=== PATIENT | female | born 1930 ===

== ENCOUNTER 2017-02-05 11:21 | Emergency (ER) | payer MEDICARE ==
[2017-02-05 11:21] VITALS: BMI 25.5
[2017-02-05 11:34] VITALS: RESP 18
--- NOTE | 2017-02-05 12:12 | C.PDOC ---
History Of Present Illness 86 yr old female with PMHx of NIDDM, HTN, hyperlipidemia, TIA, cardiomyopathy and CHF, OA come in accompanied by family for evaluation of Left knee pain and swelling gradually developed for past week after " receive injection to knee by her PMD Dr. Hernández". As per pt, pain is localized over Left knee with severe pain especially today. Otherwise, pt and family denies known trauma or injury, fever, chills, CP, SOB, dyspnea, diaphoresis, cough, denies deformity to left knee, skin changes, denies new weakness, sensory or vascular deficits to left leg. Time Seen by Provider: 02/05/17 12:09 Chief Complaint (Nursing): Lower Extremity Problem/Injury History Per: Patient, Family History/Exam Limitations: no limitations Onset/Duration Of Symptoms: Days (1 week) Past Medical History Reviewed: Historical Data, Nursing Documentation, Vital Signs Vital Signs: Last Vital Signs Temp 98.1 F 02/05/17 14:36 Pulse 84 02/05/17 14:36 Resp 18 02/05/17 14:36 BP 115/67 02/05/17 14:36 Pulse Ox 98 02/05/17 14:36 - Medical History PMH: Anemia, Anxiety, Arthritis (BACK AND KNEES AND R SHOULDER), Asthma, Cardia Arrhythmia, CHF, COPD, Diabetes, HTN, Hypercholesterolemia, TIA Surgical History: Appendectomy, Coronary Stent, Endoscopy, Pacemaker (2015) - [facility] Procedures ASSISTANCE WITH RESPIRATORY VENTILATION, <24 HRS, CPAP (02/06/16) ESOPHAGOGASTRODUODENOSCOPY [EGD] W/CLOSED BIOPSY (12/30/14) LEFT HEART CARDIAC CATH (10/19/13) LT HEART ANGIOCARDIOGRAM (10/19/13) MEASURE OF CARDIAC SAMPL & PRESSURE, L HEART, PERC APPROACH (05/21/15) PACKED CELL TRANSFUSION (12/30/14) PLAIN RADIOGRAPHY OF MULT COR ART USING OTH CONTRAST (05/21/15) TRANSFUSE NONAUT RED BLOOD CELLS IN PERIPH VEIN, PERC (02/06/16) Family History: States: No Known Family Hx - Social History Hx Tobacco Use: No Hx Alcohol Use: No Hx Substance Use: No - Immunization History Hx Tetanus Toxoid Vaccination: No Hx Influenza Vaccination: Yes Hx Pneumococcal Vaccination: Yes Review Of Systems Except As Marked, All Systems Reviewed And Found Negative. Constitutional: Negative for: Fever, Chills Cardiovascular: Negative for: Chest Pain Respiratory: Negative for: Cough, Shortness of Breath Musculoskeletal: Positive for: Other ((+) Left knee pain and swelling ) Neurological: Negative for: Weakness, Numbness Physical Exam - Physical Exam Appears: Well, Non-toxic, No Acute Distress Skin: Normal Color, Warm, No Rash, No Ecchymosis Extremity: No Normal ROM ( decrease and discomfort left knee flexion/extension due to pain and swelling), Tenderness (diffuse tenderness over left knee with superior/lateral knee effusion. NO erythema, no flactulance, no palpable deformity.), No Pedal Edema, Calf Tenderness (mild, left ), Capillary Refill ( less than 2sec to Left foot), No Deformity Neurological/Psych: Oriented x3, Normal Speech, Normal Motor, Normal Sensation, Normal Reflexes ED Course And Treatment O2 Sat by Pulse Oximetry: 97 (RA ) Pulse Ox Interpretation: Normal - Other Rad Left knee xray X-Ray: Read By Radiologist Interpretation: Accession No. : [id number]. Patient Name / ID : DEB OLIVIER / [id number]. Exam Date : 02/05/2017 12:45:24 ( Approved ). Study Comment : Sex / Age : F / 86Y. Creator : Alcides Polk MD. Dictator : Alcides Polk MD. Costume Rental Clerk : [employer] : Alcides Polk MD. Approver2 : Report Date : 02/05/2017 13:04:32. My Comment : . PROCEDURE: Left Knee Radiographs. HISTORY: Pain. COMPARISON: Comparison made with prior radiographs of the left knee 07/17/2012. FINDINGS: BONES: No definitive radiographic evidence of displaced fracture nor dislocation osseous structures grossly intact. JOINTS: Mild degenerative osteoarthritis medial joint space narrowing and small marginal medial osteophyte formation. Tiny posterior superior patellar osteophyte present. . JOINT EFFUSION: Small to medium size suprapatellar joint effusion. OTHER FINDINGS: None. IMPRESSION: No definitive radiographic evidence of acute displaced fracture nor dislocation. Suspect that it extends persist or occult fracture suspected clinically recommend repeat radiographs 5-10 days as most fractures should become radiographically evident in this timeframe. Small -medium-sized suprapatellar joint effusion. Mild DJD. - CT Scan/US Dupple US LLE Other Rad Studies (CT/US): Read By Radiologist CT/US Interpretation: (-) DVT LLE Progress Note: On re-evaluation, pt appears comfortable. Case dsicussed with [id number] and knee immobilizer, NWB, analgesics with outpt f/u on 02/09/17 recommend. Pt was given option to return to ED on 02/08/17, will be in house. results review and discussed with pt and family, advised on course of ds and ortho recommendation. Pt has clinical findings c/w Left knee arthritis/DJD with knee effusion. Knee immobilizer placed to left knee. ref. to f/u with Ortho in 3 days for re-eavl and further tx. return to ED at any time if any worsening or new changes. Pt and family understand and agrees with discharges. Medical Decision Making Medical Decision Making: PLAN: * X-Ray - Left Knee * Venous Duplex * Percocet PO Disposition Counseled Patient/Family Regarding: Studies Performed, Diagnosis, Need For Followup - Disposition Referrals: Bridger Cullen III, MD [Staff Provider] - Disposition: HOME/ ROUTINE Disposition Time: 13:50 Condition: STABLE Additional Instructions: KNEE IMMOBILIZER STRICT WEIGHT BEARING TAKE PAIN MEDICATION NEED FOLLOW UP WITH ORTHOPEDIST ON Wednesday02/09/17 FOR FURTHER EVALUATION AND TREATMENT NEED RETURN TO ED AT ANY TIME IF ANY WORSENING OR NEW CHANGES. Prescriptions: oxyCODONE/Acetaminophen [Percocet 5/325 mg Tab] 1 tab PO BID PRN #7 tab PRN Reason: Pain Instructions: Swollen Knee Joint (ED), Knee Pain (ED) Print Language: BELIZEAN - Clinical Impression Clinical Impression: Knee effusion - PA / WEBSITE/BLOG EDITOR / Resident Statement MD/DO has reviewed & agrees with the documentation as recorded. - Scribe Statement The provider has reviewed the documentation as recorded by the Scribe Johana Oneill All medical record entries made by the Scribe were at my direction and personally dictated by me. I have reviewed the chart and agree that the record accurately reflects my personal performance of the history, physical exam, medical decision making, and the department course for this patient. I have also personally directed, reviewed, and agree with the discharge instructions and disposition.
[2017-02-05] MEDS ORDERED: Oxycodone/Acetaminophen 5/325 mg Tab PO STA (12:30)
[2017-02-05] MEDS ORDERED: Oxycodone/Acetaminophen 5/325 mg Tab ONE (12:33)
--- NOTE | 2017-02-05 13:06 | RAD ---
PROCEDURE: Left Knee Radiographs. HISTORY: Pain. COMPARISON: Comparison made with prior radiographs of the left knee 07/17/2012 FINDINGS: BONES: No definitive radiographic evidence of displaced fracture nor dislocation osseous structures grossly intact. JOINTS: Mild degenerative osteoarthritis medial joint space narrowing and small marginal medial osteophyte formation. Tiny posterior superior patellar osteophyte present. . JOINT EFFUSION: Small to medium size suprapatellar joint effusion OTHER FINDINGS: None. IMPRESSION: No definitive radiographic evidence of acute displaced fracture nor dislocation. Suspect that it extends persist or occult fracture suspected clinically recommend repeat radiographs 5-10 days as most fractures should become radiographically evident in this timeframe. Small -medium-sized suprapatellar joint effusion Mild DJD.
[2017-02-05 14:38] VITALS: BP 115/67; PULSE 84; TEMP 98.1
[2017-02-05 16:48] VITALS: O2SAT 97
--- NOTE | 2017-02-08 11:08 | VASCLAB ---
PROCEDURE: Left Lower Extremity Venous Duplex Exam. HISTORY: pain PRIORS: None. TECHNIQUE: Left common femoral, femoral, popliteal and posterior tibial, peroneal and great saphenous veins were evaluated. Flow was assessed with color Doppler, compressibility, assessment of phasic flow and augmentation response. Report prepared by LEXIS Mixon, RVT FINDINGS: LEFT: 1. Common Femoral Vein: 1.1. Compressibility - Fully compressible: Thrombus - None : Flow - Phasic: Augmentation -Normal: Reflux - None. 2. Femoral Vein: 2.1. Compressibility - Fully compressible: Thrombus - None: Flow - Phasic: Augmentation -Normal: Reflux - None. 3. Popliteal Vein: 3.1. Compressibility - Fully compressible: Thrombus - None: Flow - Phasic: Augmentation -Normal: Reflux - None. 4. Posterior Tibial Vein: 4.1. Compressibility - Fully compressible: Thrombus - None: Flow - Phasic: Augmentation -Normal: Reflux - None. 5. Peroneal Vein: 5.1. Compressibility - Fully compressible: Thrombus - None: Flow - Phasic: Augmentation -Normal: Reflux - None. 6. Great Saphenous Vein: 6.1. Compressibility - Fully compressible: Thrombus - None: Flow - Phasic: Augmentation - Normal: Reflux - Severe. OTHER FINDINGS: Severe valvular incompetence of the left greater saphenous vein. IMPRESSION: No evidence of deep or superficial vein thrombosis of the left lower extremity with excellent venous flow. Normal venous flow noted in the right common femoral vein.
== END 2017-02-05 14:45 | disposition home or self-care (01) ==
LOC: C.ER 11:21
DX: M25.462 Effusion, left knee (principal)

== ENCOUNTER 2017-06-15 00:07 | Inpatient (IN) | payer MEDICARE ==
[2017-06-15 00:07] VITALS: BMI 25.5
--- NOTE | 2017-06-15 00:34 | C.PDOC ---
History Of Present Illness Pt presents in acutre respiratory distress. Worsening since yesterday. Occasionally c/o chest discomfort. Answers in one word sentences. No f/c/n/v Time Seen by Provider: 06/15/17 00:32 Chief Complaint (Nursing): Chest Pain History Per: Patient History/Exam Limitations: no limitations Onset/Duration Of Symptoms: Hrs Current Symptoms Are (Timing): Worse Initiating Event: Other Quality: Dull Exacerbating Factor(s): Laying Flat, Coughing. denies: Exertion Current Respiratory Medications: See Home Med List Severity: Severe Pain Scale Rating Of: 8 Associated Symptoms: denies: Fever, Chills, Chest Pain Reports Recently: Seen In ED, Treated By A Physician, Hospitalized Recent travel outside of the [place]: No Additional History Per: Family Past Medical History Reviewed: Historical Data, Nursing Documentation, Vital Signs Vital Signs: Last Vital Signs Temp Pulse 93 H 06/15/17 02:09 Resp 24 06/15/17 02:09 BP 87/45 L 06/15/17 02:09 Pulse Ox 100 06/15/17 02:30 - Medical History PMH: Anemia, Anxiety, Arthritis (BACK AND KNEES AND R SHOULDER), Asthma, Cardia Arrhythmia, CHF, COPD, Diabetes, HTN, Hypercholesterolemia, TIA Surgical History: Appendectomy, Coronary Stent, Endoscopy, Pacemaker (2015) - [facility] Procedures ASSISTANCE WITH RESPIRATORY VENTILATION, <24 HRS, CPAP (02/06/16) ESOPHAGOGASTRODUODENOSCOPY [EGD] W/CLOSED BIOPSY (12/30/14) LEFT HEART CARDIAC CATH (10/19/13) LT HEART ANGIOCARDIOGRAM (10/19/13) MEASURE OF CARDIAC SAMPL & PRESSURE, L HEART, PERC APPROACH (05/21/15) PACKED CELL TRANSFUSION (12/30/14) PLAIN RADIOGRAPHY OF MULT COR ART USING OTH CONTRAST (05/21/15) TRANSFUSE NONAUT RED BLOOD CELLS IN PERIPH VEIN, PERC (02/06/16) Family History: States: Unknown Family Hx - Social History Hx Tobacco Use: No Hx Alcohol Use: No Hx Substance Use: No - Immunization History Hx Tetanus Toxoid Vaccination: No Hx Influenza Vaccination: Yes Hx Pneumococcal Vaccination: Yes Review Of Systems Review Of Systems: ROS cannot be obtained secondary to pt's inabilty to answer questions. Physical Exam - Physical Exam Appears: In Acute Distress Skin: Warm Head: Normacephalic Eye(s): bilateral: Normal Inspection Oral Mucosa: Moist Neck: Trachea Midline, Supple Chest: Symmetrical Cardiovascular: Rhythm Regular (tachy) Respiratory: Decreased Breath Sounds, Rales (thruout), Wheezing Gastrointestinal/Abdominal: Soft, No Distention Back: Normal Inspection Extremity: Normal ROM Extremity: Bilateral: Atraumatic, Normal Color And Temperature, Normal ROM Pulses: Left Dorsalis Pedis: Normal, Right Dorsalis Pedis: Normal Neurological/Psych: Oriented x3 Gait: Steady ED Course And Treatment - Laboratory Results Result Diagrams: 06/15/17 00:57 06/15/17 00:57 ECG: Interpreted By Me, Viewed By Me ECG Rhythm: Sinus Rhythm (113), L BBB, Nonspecific Changes O2 Sat by Pulse Oximetry: 100 Pulse Ox Interpretation: Normal - Radiology CXR: Interpreted by Me, Viewed By Me CXR Interpretation: Yes: Infiltrates, Cardiomegaly, Other (pacer left, chf, ? rll infiltrate) Critical Care Time - Critical Care Note Total Time (in mins): 30 Documented critical care: time excludes all time spent performing seperately billable procedures. Disposition Discussed With Dr.: Uriah Hernández Comment: accepted the pt on his service and took over the care at 2:33 AM Doctor Will See Patient In The: Hospital Counseled Patient/Family Regarding: Studies Performed, Diagnosis - Disposition Disposition: HOSPITALIZED Disposition Time: 00:40 Condition: GUARDED Forms: [facility] (Khmer) - POA Present On Arrival: None - Clinical Impression Clinical Impression: Congestive heart failure, Respiratory distress, Chest pain Decision To Admit - Pt Status Changed To: Hospital Disposition Of: Inpatient - Admit Certification Admit to Inpatient:: After my assessment, the patient will require hospitalization for at least two midnights. This is because of the severity of symptoms shown, intensity of services needed, and/or the medical risk in this patient being treated as an outpatient. - InPatient: Physician Admission Certification: I certify that this patient requires 2 or more midnights of care for the following reason:: After my assessment, the patient will require hospitalization for at least two midnights. This is because of the severity of symptoms shown, intensity of services needed, and/or the medical risk in this patient being treated as an outpatient. - . Bed Request Type: Telemetry Admitting Physician: Uriah Hernández Patient Diagnosis: Congestive heart failure, Respiratory distress, Chest pain
[2017-06-15 01:01] LABS: BASO # 0.1 K/uL (0.0-0.2); BASO % 0.7 % (0.0-2.0); EOS # 0.2 K/uL (0.0-0.7); EOS % 2.3 % (0.0-4.0); LYMPH % 13.1 % (20.0-40.0); MEAN CELL VOLUME 88.2 fL (81.0-99.0); MEAN CORPUSCULAR HEMOGLOBIN 28.5 pg (27.0-31.0); MEAN CORPUSCULAR HGB CONC 32.3 g/dL (33.0-37.0); MEAN PLATELET VOLUME 10.8 fL (7.2-11.7); MONO # 0.6 K/uL (0.0-0.8); MONO % 7.7 % (0.0-10.0); RED CELL DISTRIBUTION WIDTH 15.9 % (11.5-14.5); WHITE BLOOD COUNT 7.4 K/uL (4.8-10.8)
[2017-06-15] MEDS ORDERED: Albuterol-Ipratrop 3 mg / 0.5 (3 ml) UD ONE ×2 (01:08→01:20)
[2017-06-15 01:09] LABS: ABG ALLEN TEST POS; DRAW SITE RR
[2017-06-15] MEDS: Albuterol-Ipratrop 3 mg / 0.5 (3 ml) UD IH SCH (01:22)
[2017-06-15 01:56] LABS: BILIRUBIN,TOTAL 0.5 mg/dL (0.2-1.3); CALCIUM 8.4 mg/dl (8.6-10.4); POTASSIUM 4.4 mmol/L (3.6-5.2); TOTAL PROTEIN 7.4 g/dL (6.3-8.3)
[2017-06-15 02:07] LABS: TROPONIN I 0.059 ng/mL (0.00-0.120)
[2017-06-15] MEDS ORDERED: cefTRIAXone IV 1 gm in Dextros 50 ML IVPB ONE ×2 (02:27→04:00)
[2017-06-15] MEDS ORDERED: Azithromycin 500mg/250ML NS 500 MG/250 ML BAG IVPB SCH (02:30)
[2017-06-15] MEDS ORDERED: Azithromycin 500mg/250ML NS 500 MG/250 ML BAG IVPB STA (02:30)
[2017-06-15 03:53] LABS: RBC URINE 2 /hpf (0-3); URINE BILIRUBIN NEGATIVE (NEGATIVE); URINE BLOOD 1+ (NEGATIVE); URINE COLOR Straw (YELLOW); URINE GLUCOSE (UA) NORMAL (Normal); URINE KETONE NEGATIVE (NEGATIVE); URINE LEUKOCYTE ESTERASE 1+ Leu/uL (Negative); URINE PROTEIN NEGATIVE (NEGATIVE); URINE UROBILINOGEN NORMAL mg/dL (0.2-1.0); WBC URINE 3 /hpf (0-5)
[2017-06-15] MEDS: (Novolin R) Insulin Human Regular 100 units/ml vial SC SCH ×4 (07:53→21:58)
[2017-06-15] MEDS ORDERED: (Novolin R) Insulin Human Regular 100 units/ml vial ONE ×2 (07:53→17:24)
[2017-06-15 09:24] LABS: BASO % 0.6 % (0.0-2.0); EOS # 0.1 K/uL (0.0-0.7); EOS % 0.7 % (0.0-4.0); HEMATOCRIT 34.4 % (34.0-47.0); LYMPH # 0.8 K/uL (1.0-4.3); LYMPH % 10.4 % (20.0-40.0); MEAN CELL VOLUME 86.9 fL (81.0-99.0); MEAN CORPUSCULAR HEMOGLOBIN 28.4 pg (27.0-31.0); MEAN CORPUSCULAR HGB CONC 32.7 g/dL (33.0-37.0); MEAN PLATELET VOLUME 10.5 fL (7.2-11.7); MONO # 0.6 K/uL (0.0-0.8); MONO % 8.4 % (0.0-10.0); RED CELL DISTRIBUTION WIDTH 15.8 % (11.5-14.5); WHITE BLOOD COUNT 7.3 K/uL (4.8-10.8)
[2017-06-15 09:35] LABS: ALB/GLOB RATIO 1.4 (1.0-2.1); BILIRUBIN,TOTAL 0.7 mg/dL (0.2-1.3); CALCIUM 8.1 mg/dl (8.6-10.4); TOTAL PROTEIN 5.9 g/dL (6.3-8.3)
[2017-06-15 10:18] LABS: TROPONIN I 0.092 ng/mL (0.00-0.120)
[2017-06-15] MEDS: Aspirin 325 mg EC Tablets PO SCH (10:35)
[2017-06-15] MEDS: Sacubitril/Valsartan 24-26mg Tab PO SCH (10:35)
[2017-06-15] MEDS: Ranolazine 500 mg Extended Release Tablets PO SCH ×2 (10:35→18:50)
--- NOTE | 2017-06-15 10:36 | RAD ---
PROCEDURE: CHEST RADIOGRAPH, 1 VIEW HISTORY: Shortness of breath COMPARISON: 02/07/2016. FINDINGS: LUNGS: Again seen are low lung volumes. There is interval worsening of multifocal airspace disease with near complete opacification of the right lung. PLEURA: No pneumothorax. No change in bilateral pleural effusions. CARDIOVASCULAR: The heart remains enlarged. There is stable position of left-sided AICD. OSSEOUS STRUCTURES: No significant abnormalities. VISUALIZED UPPER ABDOMEN: Normal. OTHER FINDINGS: None. IMPRESSION: Interval worsening of multifocal airspace disease, worse in the right lung which may represent multifocal pneumonia or pulmonary edema. Follow-up is advised.
--- NOTE | 2017-06-15 13:27 | CP.PCM.HP ---
History of Present Illness - History of Present Illness History of Present Illness: COMPREHENSIVE HISTORY & PHYSICAL EXAM HPI FOR LAST FEW DAYS PT HAS SOB AND INCREASINGLY GETTING WORSE WITH SOB AT REST A/ E COUGH AND WHEEZING MILD EXPECTORATION IN ER PT HAD CHF/PNEUMONIA AND IMPROVED ON IV LASIX WITH BIPAP PAST HIST. CAD/2 STENTS RECENT /CARIOMYOPATHY EF 30% / T2DM/COPD/FE DEF ANEMIA / PERSONAL HIST: Smoking. N Alcohol. N Allergy N Travel_- . FAMILY HIST : ROS : Constitutional: Negative for weight change, Eyes: Negative for redness, swelling, itching, discharge, vision changes, blurry vision, double vision, glaucoma, cataracts, Ears: Negative for hearing loss, ringing, , tinnitus, vertigo Nose: Negative for rhinorrhea, stuffiness, sniffing, itching, postnasal drip, discoloration, nasal congestion and epistaxis. Throat: Negative for throat clearing, sore throat, hoarseness, difficulty swallowing and difficulty speaking. Respiratory: Negative for , pleuritic chest pain ,daytime somnolence, chronic cough, hemoptysis, snoring at night, Cardiovascular: Negative for chest pain, palpitations, , Edema of legs, leg cramps, angina, claudication, , irregular heartbeat, Neurology: Negative for irritability, muscle weakness, numbness and tingling, seizures, tremors, migraines, slurred speech, syncope, memory loss, mood changes , recurrent headaches Gastrointestinal: Negative for difficulty swallowing, diarrhea, constipation, black stools, rectal bleeding, nausea, flatulence, reflux, poor appetite, changes in bowel habits, abdominal pain Genitourinary: Negative for frequent urination, hematuria, discharge, incontinence, urinary retention, frequent UTI, Psychiatric: Negative for depression, anxiety/panic, suicidal tendencies, Musculoskeletal: Negative for swollen joints, back pain, , neck pain, morning stiffness of joints, . Skin: Negative for rash, ulcers, itching, dry skin and pigmented lesions. P/E: Constitutional: Appears stated age and in no apparent distress. Head: Normocephalic. Ears: External ear canals patent without inflammation. Tympanic membranes intact with normal light reflex and landmark. Eyes: Pupils are central, bilaterally equal, symmetrical and reacts to light with normal movements and no icterus or pallor. Nose: External nares are patent. Mucosa is pink Mouth-Throat: Good general appearance and condition. No post-pharyngeal/oropharyngeal erythema and tonsillar hypertrophy. Good dental hygiene. Neck-Lymphatic: Neck is supple with normal ROM, no thyromegaly, lymph nodes or masses. JVD is normal with no carotid bruit. Lungs: Clear to percussion and auscultation with bilateral normal air entry. Cardiovascular: S1 and S2 are normal with no murmurs, gallops and rub. GI Exam: No hepatomegaly. Abdomen is soft and non-tender. No Organomegaly , masses or hernias are evident and bowel sounds are normal and active. Neurology: Higher function and all cranial nerves intact, with no gross motor or sensory deficit. Superficial and deep reflexes are normal with downwards planters. No cerebellar deficit with normal gait. Musculoskeletal: No tender spots with normal curvature of the spine with no swelling or restricted ROM of the small and large joints. Extremities: Homans sign absent. Intact pulses with no pitting edema, calf tenderness or skin color changes. Skin: No rash, eruptions or abnormal skin pigmentation LAB/RADIOLOGY: ASSESMENT : ACUTE ON CH SYSTOLIC HF (HFrEF) MULTI LOBE PNEUMONIA COPD T2DM PLAN: SEE ORDERS Present on Admission - Present on Admission Any Indicators Present on Admission: No Past Patient History - Infectious Disease Hx of Infectious Diseases: None - Tetanus Immunizations Tetanus Immunization: Unknown - Past Medical History & Family History Past Medical History?: Yes - Past Social History Smoking Status: Never Smoked - CARDIAC Hx Cardia Arrhythmia: Yes Hx Congestive Heart Failure: Yes Hx Hypercholesterolemia: Yes Hx Hypertension: Yes Hx Pacemaker: Yes (2015) - PULMONARY Hx Asthma: Yes Hx Chronic Obstructive Pulmonary Disease (COPD): Yes - NEUROLOGICAL Hx Transient Ischemic Attacks (TIA): Yes - HEENT Hx HEENT Problems: No - RENAL Hx Chronic Kidney Disease: No - ENDOCRINE/METABOLIC Hx Endocrine Disorders: Yes Hx Diabetes Mellitus Type 2: Yes - HEMATOLOGICAL/ONCOLOGICAL Hx Anemia: Yes - MUSCULOSKELETAL/RHEUMATOLOGICAL Hx Falls: Yes - PSYCHIATRIC Hx Substance Use: No - SURGICAL HISTORY Hx Appendectomy: Yes Hx Coronary Stent: Yes - ANESTHESIA Hx Anesthesia: Yes Hx Anesthesia Reactions: No Hx Malignant Hyperthermia: No Meds Allergies/Adverse Reactions: Allergies Allergy/AdvReac Type Severity Reaction Status Date / Time clopidogrel Allergy Mild SWELLING Verified 06/15/17 00:30 Results - Vital Signs Recent Vital Signs: Last Vital Signs Temp 97.7 F 06/15/17 10:05 Pulse 83 06/15/17 12:40 Resp 16 06/15/17 12:26 BP 99/60 L 06/15/17 12:26 Pulse Ox 100 06/15/17 12:26 - Labs Result Diagrams: 06/15/17 09:20 06/15/17 09:20 Labs: Laboratory Results - last 24 hr 06/15/17 06/15/17 06/15/17 00:57 00:57 00:57 WBC 7.4 RBC 4.30 Hgb 12.3 Hct 38.0 MCV 88.2 D MCH 28.5 MCHC 32.3 L RDW 15.9 H Plt Count 103 L D MPV 10.8 Neut % (Auto) 76.2 H Lymph % (Auto) 13.1 L [place] % (Auto) 7.7 Eos % (Auto) 2.3 Baso % (Auto) 0.7 Neut # 5.6 Lymph # 1.0 [place] # 0.6 Eos # 0.2 Baso # 0.1 Differential Comment PT 11.5 INR 1.0 APTT 22 Puncture Site pCO2 pO2 HCO3 ABG pH ABG Total CO2 ABG O2 Saturation ABG Base Excess Candido Test ABG Potassium A-a O2 Difference Respiratory Index Glucose Lactate Liter Flow FiO2 Sodium 135 Potassium 4.4 Chloride 105 Carbon Dioxide 21 L Anion Gap 14 BUN 23 H Creatinine 1.4 H Est GFR ( Amer) 43 Est GFR (Non-Af Amer) 36 POC Glucose (mg/dL) Random Glucose 163 H Calcium 8.4 L Total Bilirubin 0.5 AST 32 ALT 34 Alkaline Phosphatase 75 Total Creatine Kinase CK-MB (Mass) Troponin I 0.0590 NT-Pro-B Natriuret Pep 92630 H Total Protein 7.4 Albumin 3.8 Globulin 3.7 Albumin/Globulin Ratio 1.0 Arterial Blood Potassium Urine Color Urine Clarity Urine pH Ur Specific [place] Urine Protein Urine Glucose (UA) Urine Ketones Urine Blood Urine Nitrate Urine Bilirubin Urine Urobilinogen Ur Leukocyte Esterase Urine WBC (Auto) Urine RBC (Auto) Ur Squamous Epith Cells 06/15/17 06/15/17 06/15/17 01:05 03:44 07:31 WBC RBC Hgb Hct MCV MCH MCHC RDW Plt Count MPV Neut % (Auto) Lymph % (Auto) [place] % (Auto) Eos % (Auto) Baso % (Auto) Neut # Lymph # [place] # Eos # Baso # Differential Comment PT INR APTT Puncture Site Rr pCO2 34 L pO2 57 L HCO3 21.9 ABG pH 7.39 ABG Total CO2 21.6 L ABG O2 Saturation 93.3 L ABG Base Excess -3.6 L [place] Test Pos ABG Potassium 4.5 A-a O2 Difference 100.0 Respiratory Index 1.8 Glucose 184 H Lactate 1.0 Liter Flow 2.0 FiO2 28.0 Sodium 139.0 Potassium Chloride 109.0 H Carbon Dioxide Anion Gap BUN Creatinine Est GFR ( Amer) Est GFR (Non-Af Amer) POC Glucose (mg/dL) 162 H Random Glucose Calcium Total Bilirubin AST ALT Alkaline Phosphatase Total Creatine Kinase CK-MB (Mass) Troponin I NT-Pro-B Natriuret Pep Total Protein Albumin Globulin Albumin/Globulin Ratio Arterial Blood Potassium 4.5 Urine Color Straw Urine Clarity Clear Urine pH 5.0 Ur Specific [place] 1.005 Urine Protein Negative Urine Glucose (UA) Normal Urine Ketones Negative Urine Blood 1+ H Urine Nitrate Negative Urine Bilirubin Negative Urine Urobilinogen Normal Ur Leukocyte Esterase 1+ H Urine WBC (Auto) 3 Urine RBC (Auto) 2 Ur Squamous Epith Cells < 1 06/15/17 06/15/17 06/15/17 09:20 09:20 12:00 WBC 7.3 RBC 3.96 Hgb 11.3 Hct 34.4 MCV 86.9 MCH 28.4 MCHC 32.7 L RDW 15.8 H Plt Count 91 L MPV 10.5 Neut % (Auto) 79.9 H Lymph % (Auto) 10.4 L [place] % (Auto) 8.4 Eos % (Auto) 0.7 Baso % (Auto) 0.6 Neut # 5.8 Lymph # 0.8 L [place] # 0.6 Eos # 0.1 Baso # 0.0 Differential Comment PT INR APTT Puncture Site pCO2 pO2 HCO3 ABG pH ABG Total CO2 ABG O2 Saturation ABG Base Excess [place] Test ABG Potassium A-a O2 Difference Respiratory Index Glucose Lactate Liter Flow FiO2 Sodium 136 Potassium 4.0 Chloride 103 Carbon Dioxide 24 Anion Gap 13 BUN 22 H Creatinine 1.3 H Est GFR ( Amer) 47 Est GFR (Non-Af Amer) 39 POC Glucose (mg/dL) 96 Random Glucose 108 H Calcium 8.1 L Total Bilirubin 0.7 AST 24 ALT 32 Alkaline Phosphatase 61 Total Creatine Kinase 76 CK-MB (Mass) 2.50 Troponin I 0.0920 NT-Pro-B Natriuret Pep Total Protein 5.9 L Albumin 3.4 L Globulin 2.5 Albumin/Globulin Ratio 1.4 Arterial Blood Potassium Urine Color Urine Clarity Urine pH Ur Specific [place] Urine Protein Urine Glucose (UA) Urine Ketones Urine Blood Urine Nitrate Urine Bilirubin Urine Urobilinogen Ur Leukocyte Esterase Urine WBC (Auto) Urine RBC (Auto) Ur Squamous Epith Cells
--- NOTE | 2017-06-15 16:15 | CP.PCM.CON ---
History of Present Illness - History of Present Illness History of Present Illness: INFECTIOUS DISEASE CONSULT; HPI; 86-year-old female with history of CAD/2 stents recent, hypertension, cardiomyopathy with ejection fraction of 30%, diabetes mellitus type 2, COPD, iron deficiency anemia, TIA, pacemaker 2015 who presented to [facility] with progressive increasing shortness of breath and cough and wheezing with mild expectoration. Patient was experiencing worsening shortness of breath especially on lying down and on exertion. Patient denies any fever or chills and admits to feeling weak. Chest x-ray on admission showed multifocal air space disease RT> LT side consistent with pneumonia versus pulmonary edema. Patient's proBNP was found to be 17,000. Patient was treated with Lasix and appropriately cultured with a dose of ceftriaxone,and zithromax .PATIENT PRESENTLY ON BIPAP AND MORE COMFORTABLE. Patient admits to some chest discomfort anteriorly. Infectious disease consultation requested by PMD for possible pneumonia/CHF. PMH: Anemia, Anxiety, Arthritis (BACK AND KNEES AND R SHOULDER), Asthma, Cardia Arrhythmia, CHF, COPD, Diabetes, HTN, Hypercholesterolemia, TIA Surgical History: Appendectomy, Coronary Stent, Endoscopy, Pacemaker (2015) - [employer] Procedures ASSISTANCE WITH RESPIRATORY VENTILATION, <24 HRS, CPAP (02/06/16) ESOPHAGOGASTRODUODENOSCOPY [EGD] W/CLOSED BIOPSY (12/30/14) LEFT HEART CARDIAC CATH (10/19/13) LT HEART ANGIOCARDIOGRAM (10/19/13) MEASURE OF CARDIAC SAMPL & PRESSURE, L HEART, PERC APPROACH (05/21/15) PACKED CELL TRANSFUSION (12/30/14) PLAIN RADIOGRAPHY OF MULT COR ART USING OTH CONTRAST (05/21/15) TRANSFUSE NONAUT RED BLOOD CELLS IN PERIPH VEIN, PERC (02/06/16) Family History: States: Unknown Family Hx - Social History Hx Tobacco Use: No Hx Alcohol Use: No Hx Substance Use: No - Immunization History Hx Tetanus Toxoid Vaccination: No Hx Influenza Vaccination: Yes Hx Pneumococcal Vaccination: Yes ALLERGY; PLAVIX. Review of Systems - Review of Systems Systems not reviewed;Unavailable: Respiratory Distress Past Patient History - Infectious Disease Hx of Infectious Diseases: None - Tetanus Immunizations Tetanus Immunization: Unknown - Past Medical History & Family History Past Medical History?: Yes - Past Social History Smoking Status: Never Smoked - CARDIAC Hx Cardia Arrhythmia: Yes Hx Congestive Heart Failure: Yes Hx Hypercholesterolemia: Yes Hx Hypertension: Yes Hx Pacemaker: Yes (2016) - PULMONARY Hx Asthma: Yes Hx Chronic Obstructive Pulmonary Disease (COPD): Yes - NEUROLOGICAL Hx Transient Ischemic Attacks (TIA): Yes - HEENT Hx HEENT Problems: No - RENAL Hx Chronic Kidney Disease: No - ENDOCRINE/METABOLIC Hx Endocrine Disorders: Yes Hx Diabetes Mellitus Type 2: Yes - HEMATOLOGICAL/ONCOLOGICAL Hx Anemia: Yes - MUSCULOSKELETAL/RHEUMATOLOGICAL Hx Falls: Yes - PSYCHIATRIC Hx Substance Use: No - SURGICAL HISTORY Hx Appendectomy: Yes Hx Coronary Stent: Yes - ANESTHESIA Hx Anesthesia: Yes Hx Anesthesia Reactions: No Hx Malignant Hyperthermia: No Meds Allergies/Adverse Reactions: Allergies Allergy/AdvReac Type Severity Reaction Status Date / Time clopidogrel Allergy Mild SWELLING Verified 06/15/17 00:30 - Medications Medications: Current Medications Aspirin (Ecotrin) 325 mg PO DAILY [facility] Last Admin: 06/15/17 10:35 Dose: 325 mg Furosemide (Lasix) 40 mg IVP DAILY [facility] Last Admin: 06/15/17 10:30 Dose: Not Given Heparin Sodium (Porcine) (Heparin) 5,000 units SC Q12 [facility] Last Admin: 06/15/17 13:53 Dose: 5,000 units Ceftriaxone Sodium (Rocephin Iv 1 Gm Duplex) 50 mls @ 100 mls/hr IVPB Q24H [facility] Insulin Glargine (Lantus) 20 unit SC HS [facility] Insulin Human Regular (Novolin R) 0 unit SC ACHS [facility] PRN Reason: Protocol Last Admin: 06/15/17 12:01 Dose: Not Given Metoprolol Tartrate (Lopressor) 25 mg PO BID [facility] Last Admin: 06/15/17 10:28 Dose: Not Given Pneumococcal Polyvalent Vaccine (Pneumovax 23 Vaccine) 0.5 ml IM .ONCE ONE Stop: 06/18/17 10:01 Ranolazine (Ranexa) 500 mg PO BID [facility] Last Admin: 06/15/17 10:35 Dose: 500 mg Repaglinide (Prandin) 2 mg PO DAILY [facility] Last Admin: 06/15/17 10:35 Dose: 2 mg Rosuvastatin Calcium (Crestor) 20 mg PO HS [facility] Sacubitril/Valsartan (Entresto 24 Mg-26 Mg) 1 tab PO DAILY [facility] Last Admin: 06/15/17 10:35 Dose: Not Given Ticagrelor (Brilinta) 90 mg PO QOD6 JONNA Physical Exam - Constitutional Appears: No Acute Distress - Head Exam Head Exam: NORMAL INSPECTION - Eye Exam Eye Exam: EOMI, PERRL - ENT Exam ENT Exam: Mucous Membranes Moist - Neck Exam Neck exam: Positive for: Normal Inspection - Respiratory Exam Respiratory Exam: Rales, Wheezes - Cardiovascular Exam Cardiovascular Exam: REGULAR RHYTHM, +S1, +S2 - GI/Abdominal Exam GI & Abdominal Exam: Normal Bowel Sounds, Soft. absent: Tenderness - Extremities Exam Extremities exam: Positive for: normal capillary refill, pedal pulses present. Negative for: calf tenderness, pedal edema - Neurological Exam Neurological exam: Alert, CN II-XII Intact, Oriented x3, Reflexes Normal - Psychiatric Exam Psychiatric exam: Normal Mood - Skin Skin Exam: Normal Color, Warm Results - Vital Signs Recent Vital Signs: Last Vital Signs Temp 97.5 F L 06/15/17 15:15 Pulse 93 H 06/15/17 15:15 Resp 17 06/15/17 15:15 BP 101/39 L 06/15/17 15:15 Pulse Ox 99 06/15/17 15:15 - Labs Result Diagrams: 06/15/17 09:20 06/15/17 09:20 Labs: Laboratory Results - last 24 hr 06/15/17 06/15/17 06/15/17 00:57 00:57 00:57 WBC 7.4 RBC 4.30 Hgb 12.3 Hct 38.0 MCV 88.2 D MCH 28.5 MCHC 32.3 L RDW 15.9 H Plt Count 103 L D MPV 10.8 Neut % (Auto) 76.2 H Lymph % (Auto) 13.1 L [place] % (Auto) 7.7 Eos % (Auto) 2.3 Baso % (Auto) 0.7 Neut # 5.6 Lymph # 1.0 [place] # 0.6 Eos # 0.2 Baso # 0.1 Differential Comment PT 11.5 INR 1.0 APTT 22 Puncture Site pCO2 pO2 HCO3 ABG pH ABG Total CO2 ABG O2 Saturation ABG Base Excess [place] Test ABG Potassium A-a O2 Difference Respiratory Index Glucose Lactate Liter Flow FiO2 Sodium 135 Potassium 4.4 Chloride 105 Carbon Dioxide 21 L Anion Gap 14 BUN 23 H Creatinine 1.4 H Est GFR ( Amer) 43 Est GFR (Non-Af Amer) 36 POC Glucose (mg/dL) Random Glucose 163 H Calcium 8.4 L Total Bilirubin 0.5 AST 32 ALT 34 Alkaline Phosphatase 75 Total Creatine Kinase CK-MB (Mass) Troponin I 0.0590 NT-Pro-B Natriuret Pep 30979 H Total Protein 7.4 Albumin 3.8 Globulin 3.7 Albumin/Globulin Ratio 1.0 Arterial Blood Potassium Urine Color Urine Clarity Urine pH Ur Specific [place] Urine Protein Urine Glucose (UA) Urine Ketones Urine Blood Urine Nitrate Urine Bilirubin Urine Urobilinogen Ur Leukocyte Esterase Urine WBC (Auto) Urine RBC (Auto) Ur Squamous Epith Cells 06/15/17 06/15/17 06/15/17 01:05 03:44 07:31 WBC RBC Hgb Hct MCV MCH MCHC RDW Plt Count MPV Neut % (Auto) Lymph % (Auto) [place] % (Auto) Eos % (Auto) Baso % (Auto) Neut # Lymph # [place] # Eos # Baso # Differential Comment PT INR APTT Puncture Site Rr pCO2 34 L pO2 57 L HCO3 21.9 ABG pH 7.39 ABG Total CO2 21.6 L ABG O2 Saturation 93.3 L ABG Base Excess -3.6 L [place] Test Pos ABG Potassium 4.5 A-a O2 Difference 100.0 Respiratory Index 1.8 Glucose 184 H Lactate 1.0 Liter Flow 2.0 FiO2 28.0 Sodium 139.0 Potassium Chloride 109.0 H Carbon Dioxide Anion Gap BUN Creatinine Est GFR ( Amer) Est GFR (Non-Af Amer) POC Glucose (mg/dL) 162 H Random Glucose Calcium Total Bilirubin AST ALT Alkaline Phosphatase Total Creatine Kinase CK-MB (Mass) Troponin I NT-Pro-B Natriuret Pep Total Protein Albumin Globulin Albumin/Globulin Ratio Arterial Blood Potassium 4.5 Urine Color Straw Urine Clarity Clear Urine pH 5.0 Ur Specific [place] 1.005 Urine Protein Negative Urine Glucose (UA) Normal Urine Ketones Negative Urine Blood 1+ H Urine Nitrate Negative Urine Bilirubin Negative Urine Urobilinogen Normal Ur Leukocyte Esterase 1+ H Urine WBC (Auto) 3 Urine RBC (Auto) 2 Ur Squamous Epith Cells < 1 06/15/17 06/15/17 06/15/17 09:20 09:20 12:00 WBC 7.3 RBC 3.96 Hgb 11.3 Hct 34.4 MCV 86.9 MCH 28.4 MCHC 32.7 L RDW 15.8 H Plt Count 91 L MPV 10.5 Neut % (Auto) 79.9 H Lymph % (Auto) 10.4 L [place] % (Auto) 8.4 Eos % (Auto) 0.7 Baso % (Auto) 0.6 Neut # 5.8 Lymph # 0.8 L [place] # 0.6 Eos # 0.1 Baso # 0.0 Differential Comment PT INR APTT Puncture Site pCO2 pO2 HCO3 ABG pH ABG Total CO2 ABG O2 Saturation ABG Base Excess [place] Test ABG Potassium A-a O2 Difference Respiratory Index Glucose Lactate Liter Flow FiO2 Sodium 136 Potassium 4.0 Chloride 103 Carbon Dioxide 24 Anion Gap 13 BUN 22 H Creatinine 1.3 H Est GFR ( Amer) 47 Est GFR (Non-Af Amer) 39 POC Glucose (mg/dL) 96 Random Glucose 108 H Calcium 8.1 L Total Bilirubin 0.7 AST 24 ALT 32 Alkaline Phosphatase 61 Total Creatine Kinase 76 CK-MB (Mass) 2.50 Troponin I 0.0920 NT-Pro-B Natriuret Pep Total Protein 5.9 L Albumin 3.4 L Globulin 2.5 Albumin/Globulin Ratio 1.4 Arterial Blood Potassium Urine Color Urine Clarity Urine pH Ur Specific [place] Urine Protein Urine Glucose (UA) Urine Ketones Urine Blood Urine Nitrate Urine Bilirubin Urine Urobilinogen Ur Leukocyte Esterase Urine WBC (Auto) Urine RBC (Auto) Ur Squamous Epith Cells - Imaging and Cardiology Chest x-ray Status: Report reviewed by me (see report.) Assessment & Plan (1) Respiratory distress Assessment and Plan: PATIENT PRESENTLY ON BIPAP. CONTINUE PULMONARY TOILET/ DIURESIS. Status: Acute (2) Pneumonia Assessment and Plan: pancultures ESR,CRP. ATYPICAL TITERS. MRSA SCREEN. SPUTUM gRAM STAIN AND CULTURE. CONTINUE iv CEFTRIAXONE 1 G ONCE A DAY DAILY.06/15/17 CONTINUE iv ZITHROMAX 500 MG ONCE A DAY DAILY.06/15/17. PULMONARY TOILET. DIURESESIS PER PMD. FOLLOW-UP CHEST X-RAY Status: Acute (3) CHF exacerbation Status: Acute (4) Cardiomyopathy Assessment and Plan: 2-d ECHO IN PROGRESS. Status: Acute (5) CAD (coronary artery disease) Status: Acute
[2017-06-15 19:37] LABS: TROPONIN I 0.078 ng/mL (0.00-0.120)
[2017-06-15] MEDS ORDERED: Albumin Human 5% (12.5 gm/250 ml) IV ONE (20:45)
--- NOTE | 2017-06-15 21:16 | CP.PCM.CON ---
History of Present Illness - History of Present Illness History of Present Illness: 86yo F. PMHx CAD (2 stents), systolic HF (EF-25%, 07/2015), DM type 2, COPD, iron deficiency anemia. p/w SOB, placed on BIPAP in ED, with improvement. Review of Systems - Review of Systems All systems: reviewed and no additional remarkable complaints except (feels hot) Past Patient History - Infectious Disease Hx of Infectious Diseases: None - Tetanus Immunizations Tetanus Immunization: Unknown - Past Medical History & Family History Past Medical History?: Yes - Past Social History Smoking Status: Never Smoked - CARDIAC Hx Cardia Arrhythmia: Yes Hx Congestive Heart Failure: Yes Hx Hypercholesterolemia: Yes Hx Hypertension: Yes Hx Pacemaker: Yes (2015) - PULMONARY Hx Asthma: Yes Hx Chronic Obstructive Pulmonary Disease (COPD): Yes - NEUROLOGICAL Hx Transient Ischemic Attacks (TIA): Yes - HEENT Hx HEENT Problems: No - RENAL Hx Chronic Kidney Disease: No - ENDOCRINE/METABOLIC Hx Endocrine Disorders: Yes Hx Diabetes Mellitus Type 2: Yes - HEMATOLOGICAL/ONCOLOGICAL Hx Anemia: Yes - MUSCULOSKELETAL/RHEUMATOLOGICAL Hx Falls: Yes - PSYCHIATRIC Hx Substance Use: No - SURGICAL HISTORY Hx Appendectomy: Yes Hx Coronary Stent: Yes - ANESTHESIA Hx Anesthesia: Yes Hx Anesthesia Reactions: No Hx Malignant Hyperthermia: No Meds Allergies/Adverse Reactions: Allergies Allergy/AdvReac Type Severity Reaction Status Date / Time clopidogrel Allergy Mild SWELLING Verified 06/15/17 00:30 - Medications Medications: Current Medications Aspirin (Ecotrin) 325 mg PO DAILY [facility] Last Admin: 06/15/17 10:35 Dose: 325 mg Furosemide (Lasix) 40 mg IVP Q12 [facility] Heparin Sodium (Porcine) (Heparin) 5,000 units SC Q12 [facility] Last Admin: 06/15/17 13:53 Dose: 5,000 units Azithromycin 500 mg/ Sodium (Chloride) 250 mls @ 250 mls/hr IVPB DAILY [facility] Ceftriaxone Sodium 1 gm/ (Sodium Chloride) 100 mls @ 100 mls/hr IVPB DAILY [facility] Last Admin: 06/15/17 19:54 Dose: 100 mls/hr Insulin Glargine (Lantus) 20 unit SC HS [facility] Insulin Human Regular (Novolin R) 0 unit SC ACHS [facility] PRN Reason: Protocol Last Admin: 06/15/17 17:23 Dose: 3 unit Metoprolol Tartrate (Lopressor) 25 mg PO BID [facility] Last Admin: 06/15/17 18:38 Dose: Not Given Pneumococcal Polyvalent Vaccine (Pneumovax 23 Vaccine) 0.5 ml IM .ONCE ONE Stop: 06/18/17 10:01 Ranolazine (Ranexa) 500 mg PO BID [facility] Last Admin: 06/15/17 18:50 Dose: 500 mg Repaglinide (Prandin) 2 mg PO DAILY [facility] Last Admin: 06/15/17 10:35 Dose: 2 mg Rosuvastatin Calcium (Crestor) 20 mg PO [facility] Sacubitril/Valsartan (Entresto 24 Mg-26 Mg) 1 tab PO DAILY [facility] Last Admin: 06/15/17 10:35 Dose: Not Given Ticagrelor (Brilinta) 90 mg PO QOD6 [facility] Last Admin: 06/15/17 18:50 Dose: 90 mg Physical Exam - Head Exam Head Exam: ATRAUMATIC, NORMAL INSPECTION, NORMOCEPHALIC - Eye Exam Eye Exam: EOMI, Normal appearance, PERRL Pupil Exam: NORMAL ACCOMODATION, PERRL - ENT Exam ENT Exam: Mucous Membranes Dry, Normal Exam - Respiratory Exam Respiratory Exam: Rales, NORMAL BREATHING PATTERN - Cardiovascular Exam Cardiovascular Exam: REGULAR RHYTHM - GI/Abdominal Exam GI & Abdominal Exam: Normal Bowel Sounds, Soft. absent: Tenderness - Neurological Exam Neurological exam: Alert, CN II-XII Intact, Oriented x3, Reflexes Normal - Psychiatric Exam Psychiatric exam: Normal Affect, Normal Mood Results - Vital Signs Recent Vital Signs: Last Vital Signs Temp 97.5 F L 06/15/17 18:50 Pulse 97 H 06/15/17 18:25 Resp 16 06/15/17 18:25 BP 109/46 L 06/15/17 18:38 Pulse Ox 100 06/15/17 18:25 - Labs Result Diagrams: 06/15/17 09:20 06/15/17 09:20 Labs: Laboratory Results - last 24 hr 06/15/17 06/15/17 06/15/17 00:57 00:57 00:57 WBC 7.4 RBC 4.30 Hgb 12.3 Hct 38.0 MCV 88.2 D MCH 28.5 MCHC 32.3 L RDW 15.9 H Plt Count 103 L D MPV 10.8 Neut % (Auto) 76.2 H Lymph % (Auto) 13.1 L [place] % (Auto) 7.7 Eos % (Auto) 2.3 Baso % (Auto) 0.7 Neut # 5.6 Lymph # 1.0 [place] # 0.6 Eos # 0.2 Baso # 0.1 Differential Comment ESR PT 11.5 INR 1.0 APTT 22 Puncture Site pCO2 pO2 HCO3 ABG pH ABG Total CO2 ABG O2 Saturation ABG Base Excess [place] Test ABG Potassium A-a O2 Difference Respiratory Index Glucose Lactate Liter Flow FiO2 Sodium 135 Potassium 4.4 Chloride 105 Carbon Dioxide 21 L Anion Gap 14 BUN 23 H Creatinine 1.4 H Est GFR ( Amer) 43 Est GFR (Non-Af Amer) 36 POC Glucose (mg/dL) Random Glucose 163 H Calcium 8.4 L Total Bilirubin 0.5 AST 32 ALT 34 Alkaline Phosphatase 75 Total Creatine Kinase CK-MB (Mass) Troponin I 0.0590 NT-Pro-B Natriuret Pep 45167 H Total Protein 7.4 Albumin 3.8 Globulin 3.7 Albumin/Globulin Ratio 1.0 Arterial Blood Potassium Urine Color Urine Clarity Urine pH Ur Specific [place] Urine Protein Urine Glucose (UA) Urine Ketones Urine Blood Urine Nitrate Urine Bilirubin Urine Urobilinogen Ur Leukocyte Esterase Urine WBC (Auto) Urine RBC (Auto) Ur Squamous Epith Cells Mycoplasma pneumon IgM 06/15/17 06/15/17 06/15/17 01:05 03:44 07:31 WBC RBC Hgb Hct MCV MCH MCHC RDW Plt Count MPV Neut % (Auto) Lymph % (Auto) [place] % (Auto) Eos % (Auto) Baso % (Auto) Neut # Lymph # [place] # Eos # Baso # Differential Comment ESR PT INR APTT Puncture Site Rr pCO2 34 L pO2 57 L HCO3 21.9 ABG pH 7.39 ABG Total CO2 21.6 L ABG O2 Saturation 93.3 L ABG Base Excess -3.6 L [place] Test Pos ABG Potassium 4.5 A-a O2 Difference 100.0 Respiratory Index 1.8 Glucose 184 H Lactate 1.0 Liter Flow 2.0 FiO2 28.0 Sodium 139.0 Potassium Chloride 109.0 H Carbon Dioxide Anion Gap BUN Creatinine Est GFR ( Amer) Est GFR (Non-Af Amer) POC Glucose (mg/dL) 162 H Random Glucose Calcium Total Bilirubin AST ALT Alkaline Phosphatase Total Creatine Kinase CK-MB (Mass) Troponin I NT-Pro-B Natriuret Pep Total Protein Albumin Globulin Albumin/Globulin Ratio Arterial Blood Potassium 4.5 Urine Color Straw Urine Clarity Clear Urine pH 5.0 Ur Specific [place] 1.005 Urine Protein Negative Urine Glucose (UA) Normal Urine Ketones Negative Urine Blood 1+ H Urine Nitrate Negative Urine Bilirubin Negative Urine Urobilinogen Normal Ur Leukocyte Esterase 1+ H Urine WBC (Auto) 3 Urine RBC (Auto) 2 Ur Squamous Epith Cells < 1 Mycoplasma pneumon IgM 06/15/17 06/15/17 06/15/17 09:20 09:20 12:00 WBC 7.3 RBC 3.96 Hgb 11.3 Hct 34.4 MCV 86.9 MCH 28.4 MCHC 32.7 L RDW 15.8 H Plt Count 91 L MPV 10.5 Neut % (Auto) 79.9 H Lymph % (Auto) 10.4 L [place] % (Auto) 8.4 Eos % (Auto) 0.7 Baso % (Auto) 0.6 Neut # 5.8 Lymph # 0.8 L [place] # 0.6 Eos # 0.1 Baso # 0.0 Differential Comment ESR PT INR APTT Puncture Site pCO2 pO2 HCO3 ABG pH ABG Total CO2 ABG O2 Saturation ABG Base Excess [place] Test ABG Potassium A-a O2 Difference Respiratory Index Glucose Lactate Liter Flow FiO2 Sodium 136 Potassium 4.0 Chloride 103 Carbon Dioxide 24 Anion Gap 13 BUN 22 H Creatinine 1.3 H Est GFR ( Amer) 47 Est GFR (Non-Af Amer) 39 POC Glucose (mg/dL) 96 Random Glucose 108 H Calcium 8.1 L Total Bilirubin 0.7 AST 24 ALT 32 Alkaline Phosphatase 61 Total Creatine Kinase 76 CK-MB (Mass) 2.50 Troponin I 0.0920 NT-Pro-B Natriuret Pep Total Protein 5.9 L Albumin 3.4 L Globulin 2.5 Albumin/Globulin Ratio 1.4 Arterial Blood Potassium Urine Color Urine Clarity Urine pH Ur Specific [place] Urine Protein Urine Glucose (UA) Urine Ketones Urine Blood Urine Nitrate Urine Bilirubin Urine Urobilinogen Ur Leukocyte Esterase Urine WBC (Auto) Urine RBC (Auto) Ur Squamous Epith Cells Mycoplasma pneumon IgM 06/15/17 06/15/17 06/15/17 16:57 18:19 18:19 WBC RBC Hgb Hct MCV MCH MCHC RDW Plt Count MPV Neut % (Auto) Lymph % (Auto) [place] % (Auto) Eos % (Auto) Baso % (Auto) Neut # Lymph # [place] # Eos # Baso # Differential Comment ESR PT INR APTT Puncture Site pCO2 pO2 HCO3 ABG pH ABG Total CO2 ABG O2 Saturation ABG Base Excess [place] Test ABG Potassium A-a O2 Difference Respiratory Index Glucose Lactate Liter Flow FiO2 Sodium Potassium Chloride Carbon Dioxide Anion Gap BUN Creatinine Est GFR ( Amer) Est GFR (Non-Af Amer) POC Glucose (mg/dL) 200 H Random Glucose Calcium Total Bilirubin AST ALT Alkaline Phosphatase Total Creatine Kinase 55 CK-MB (Mass) 1.71 Troponin I 0.0780 NT-Pro-B Natriuret Pep Total Protein Albumin Globulin Albumin/Globulin Ratio Arterial Blood Potassium Urine Color Urine Clarity Urine pH Ur Specific [place] Urine Protein Urine Glucose (UA) Urine Ketones Urine Blood Urine Nitrate Urine Bilirubin Urine Urobilinogen Ur Leukocyte Esterase Urine WBC (Auto) Urine RBC (Auto) Ur Squamous Epith Cells Mycoplasma pneumon IgM Positive H 06/15/17 18:19 WBC RBC Hgb Hct MCV MCH MCHC RDW Plt Count MPV Neut % (Auto) Lymph % (Auto) [place] % (Auto) Eos % (Auto) Baso % (Auto) Neut # Lymph # [place] # Eos # Baso # Differential Comment ESR 40 H PT INR APTT Puncture Site pCO2 pO2 HCO3 ABG pH ABG Total CO2 ABG O2 Saturation ABG Base Excess [place] Test ABG Potassium A-a O2 Difference Respiratory Index Glucose Lactate Liter Flow FiO2 Sodium Potassium Chloride Carbon Dioxide Anion Gap BUN Creatinine Est GFR ( Amer) Est GFR (Non-Af Amer) POC Glucose (mg/dL) Random Glucose Calcium Total Bilirubin AST ALT Alkaline Phosphatase Total Creatine Kinase CK-MB (Mass) Troponin I NT-Pro-B Natriuret Pep Total Protein Albumin Globulin Albumin/Globulin Ratio Arterial Blood Potassium Urine Color Urine Clarity Urine pH Ur Specific [place] Urine Protein Urine Glucose (UA) Urine Ketones Urine Blood Urine Nitrate Urine Bilirubin Urine Urobilinogen Ur Leukocyte Esterase Urine WBC (Auto) Urine RBC (Auto) Ur Squamous Epith Cells Mycoplasma pneumon IgM Assessment & Plan (1) Congestive heart failure Assessment and Plan: 86yo F. PMHx CAD (2 stents), systolic HF (EF-25%), DM type 2, COPD, iron deficiency anemia. p/w acute on chronic systolic CHF exacerbation. Neuro: alert and oriented x 3. Pulm: acute hypoxic respiratory failure secondary to pulmonary edema from acute on chronic CHF exacerbation, started on BIPAP, adding diuretics. CV: relatively hypotensive for a normally hypertensive patient, but asymptomatic. Hem: chronic anemia, continue iron supplementation. Renal: no acute issues. Starting albumin drip with diuretics to improve blood pressure and pulmonary edema. Endo: type 2 DM, short acting insulin sliding scale for coverage GI: heart healthy diet ID: empiric treatemnt for possible underlying community acquired pneumonia, suspicion low. continue ceftriaxone and azithromycin. DVT proph - lovenox GI proph - not currently indicated garrett for strict I/O's during acute illness Code status - full code Patient is clinically stable for continued management on telemetry floors, if clinical status changes, please reconsult ICU. Critical Care Time spent 35 minutes The documented time is cumulative and includes review of patient data/exams/labs /chart review and examination of the patient on rounds and throughout the day; time is exclusive of any procedures or teaching time. Status: Acute
[2017-06-15] MEDS: (Lantus) Insulin Glargine, Recombinant SC SCH (23:07)
[2017-06-16] MEDS ORDERED: cefTRIAXone IV 1 gm in Dextros 50 ML IVPB SCH (03:00)
[2017-06-16 07:27] LABS: BASO % 0.5 % (0.0-2.0); EOS # 0.1 K/uL (0.0-0.7); LYMPH # 0.7 K/uL (1.0-4.3); LYMPH % 13.6 % (20.0-40.0); MEAN CELL VOLUME 86.6 fL (81.0-99.0); MEAN CORPUSCULAR HEMOGLOBIN 28.4 pg (27.0-31.0); MEAN CORPUSCULAR HGB CONC 32.8 g/dL (33.0-37.0); MEAN PLATELET VOLUME 11.2 fL (7.2-11.7); MONO # 0.5 K/uL (0.0-0.8); MONO % 10.6 % (0.0-10.0); NRBC % 0.1 % (0.0-2.0); RED CELL DISTRIBUTION WIDTH 15.7 % (11.5-14.5); WHITE BLOOD COUNT 4.8 K/uL (4.8-10.8)
[2017-06-16] MEDS: (Novolin R) Insulin Human Regular 100 units/ml vial SC SCH ×4 (07:48→21:47)
[2017-06-16 07:51] LABS: ALB/GLOB RATIO 1.3 (1.0-2.1); BILIRUBIN,TOTAL 0.7 mg/dL (0.2-1.3); CALCIUM 8.2 mg/dl (8.6-10.4); POTASSIUM 3.5 mmol/L (3.6-5.2); TOTAL PROTEIN 5.9 g/dL (6.3-8.3)
--- NOTE | 2017-06-16 09:20 | RAD ---
HISTORY: Repeat COMPARISON: Portable chest 05/07/2017 1:06 a.m.. FINDINGS: LUNGS: Diminishing scattered infiltrates are appreciated with improved CHF evident. Cardiomegaly is stable with pacemaker again identified. Large hiatal hernia is again appreciate posterior the heart. No apparent pneumothorax bilaterally. Trachea remains midline in position. Minimal left pleural effusion in question with none identified at the right. OSSEOUS STRUCTURES: No significant abnormalities. VISUALIZED UPPER ABDOMEN: Normal. OTHER FINDINGS: None. IMPRESSION: Improved CHF pattern with bilateral airspace disease diminishing as well. Stable cardiomegaly with residual pulmonary venous congestion identified as discussed above.
[2017-06-16] MEDS: Sacubitril/Valsartan 24-26mg Tab PO SCH (10:09)
[2017-06-16] MEDS: Ranolazine 500 mg Extended Release Tablets PO SCH ×2 (10:09→18:17)
[2017-06-16] MEDS: Aspirin 325 mg EC Tablets PO SCH (10:10)
[2017-06-16] MEDS: Azithromycin 500 MG in Sodium Chloride 0.9% 250 ML IVPB SCH (11:00)
--- NOTE | 2017-06-16 13:45 | CP.PCM.PN ---
Subjective - Date & Time of Evaluation Date of Evaluation: 06/16/17 Time of Evaluation: 13:41 - Subjective Subjective: CHIEF COMPLAINTS TODAY : SOB ON MINIMAL EXERTION ROS. HEENT : N. Resp : No pleuritic CP ,or hemoptysis Cardio : No anginal CP, GI : No abd.pain, n/v ,diarrhea or GI bleeding . LATH HAND : No headache, vertigo, focal deficit. Musculoskel : No joint swelling , Derm : No rash Psych : Normal affect. Ext : No swelling ,calf pain PE. Pt. is alert awake in no distress. V.S As noted in the chart Head ,ear nose,throat and eyes : Normal. Neck : Supple with normal carotids. Lungs: MARGE POOR AIR ENTRY WITH WHEEZING Heart : S1 & S2 normal with S4. No murmur. Abd : Soft non tender with normal bowel sounds. Neuro : Moves all ext. with no localized deficit. Ext : No edema with intact pulses.Non tender calves Derm : No rashes or decubitus ulcer. LABS/RADIOLOGY: ASSESSMENT/PLAN : BIPAP IV LASIX/STEROIDS /AB Objective - Vital Signs/Intake and Output Vital Signs (last 24 hours): Temp Pulse Resp BP Pulse Ox 98.1 F 90 20 127/74 101 H 06/16/17 08:03 06/16/17 08:03 06/16/17 08:03 06/16/17 10:10 06/16/17 08:03 Intake and Output: 06/16/17 06/16/17 11:59 23:59 Intake Total 250 Output Total 1900 Balance -1900 250 - Medications Medications: Current Medications Aspirin (Ecotrin) 325 mg PO DAILY [facility] Last Admin: 06/16/17 10:10 Dose: 325 mg Furosemide (Lasix) 40 mg IVP Q12 [facility] Last Admin: 06/16/17 10:10 Dose: 40 mg Heparin Sodium (Porcine) (Heparin) 5,000 units SC Q12 [facility] Last Admin: 06/16/17 10:11 Dose: 5,000 units Azithromycin 500 mg/ Sodium (Chloride) 250 mls @ 250 mls/hr IVPB DAILY [facility] Last Admin: 06/16/17 11:00 Dose: 250 mls/hr Ceftriaxone Sodium 1 gm/ (Sodium Chloride) 100 mls @ 100 mls/hr IVPB DAILY [facility] Last Admin: 06/16/17 08:59 Dose: 100 mls/hr Insulin Glargine (Lantus) 20 unit SC [facility] Last Admin: 06/15/17 23:07 Dose: Not Given Insulin Human Regular (Novolin R) 0 unit SC [facility] PRN Reason: Protocol Last Admin: 06/16/17 12:08 Dose: Not Given Metoprolol Tartrate (Lopressor) 25 mg PO BID [facility] Last Admin: 06/16/17 10:09 Dose: 25 mg Pneumococcal Polyvalent Vaccine (Pneumovax 23 Vaccine) 0.5 ml IM .ONCE ONE Stop: 06/18/17 10:01 Ranolazine (Ranexa) 500 mg PO BID [facility] Last Admin: 06/16/17 10:09 Dose: 500 mg Repaglinide (Prandin) 2 mg PO DAILY [facility] Last Admin: 06/16/17 10:09 Dose: 2 mg Rosuvastatin Calcium (Crestor) 20 mg PO HS [facility] Last Admin: 06/15/17 23:07 Dose: Not Given Sacubitril/Valsartan (Entresto 24 Mg-26 Mg) 1 tab PO DAILY [facility] Last Admin: 06/16/17 10:09 Dose: 1 tab Ticagrelor (Brilinta) 90 mg PO QOD6 [facility] Last Admin: 06/15/17 18:50 Dose: 90 mg - Labs Labs: 06/16/17 07:10 06/16/17 07:10 PT 11.5 SECONDS (9.7-12.2) 06/15/17 00:57 INR 1.0 06/15/17 00:57 APTT 22 SECONDS (21-34) 06/15/17 00:57
--- NOTE | 2017-06-16 13:53 | CP.PCM.PN ---
Subjective - Date & Time of Evaluation Date of Evaluation: 06/16/17 Time of Evaluation: 13:53 - Subjective Subjective: CHIEF COMPLAINTS TODAY : afebrile Occasional cough SOB ON MINIMAL EXERTION ROS. HEENT : N. Resp : No pleuritic CP ,or hemoptysis Cardio : No anginal CP, GI : No abd.pain, n/v ,diarrhea or GI bleeding . 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 Musculoskel : No joint swelling , Derm : No rash Psych : Normal affect. Ext : No swelling ,calf pain PE. Pt. is alert awake in no distress. V.S As noted in the chart Head ,ear nose,throat and eyes : Normal. Neck : Supple with normal carotids. Lungs: MARGE POOR AIR ENTRY WITH WHEEZING Heart : S1 & S2 normal with S4. No murmur. Abd : Soft non tender with normal bowel sounds. Neuro : Moves all ext. with no localized deficit. Ext : No edema with intact pulses.Non tender calves Derm : No rashes or decubitus ulcer. LABS/RADIOLOGY: WBC 4.8, H&H 11.2 /34.0, plt 84K creatinine 1.3/BUN 18 Chest x-ray;06/15/17. improving infiltrate and peripheral vascular congestion. Objective - Vital Signs/Intake and Output Vital Signs (last 24 hours): Temp Pulse Resp BP Pulse Ox 98.1 F 90 20 127/74 101 H 06/16/17 08:03 06/16/17 08:03 06/16/17 08:03 06/16/17 10:10 06/16/17 08:03 Intake and Output: 06/16/17 06/16/17 06:59 18:59 Intake Total 250 Output Total 1900 Balance -1900 250 - Medications Medications: Current Medications Aspirin (Ecotrin) 325 mg PO DAILY [facility] Last Admin: 06/16/17 10:10 Dose: 325 mg Furosemide (Lasix) 40 mg IVP Q12 [facility] Last Admin: 06/16/17 10:10 Dose: 40 mg Heparin Sodium (Porcine) (Heparin) 5,000 units SC Q12 [facility] Last Admin: 06/16/17 10:11 Dose: 5,000 units Azithromycin 500 mg/ Sodium (Chloride) 250 mls @ 250 mls/hr IVPB DAILY [facility] Last Admin: 06/16/17 11:00 Dose: 250 mls/hr Ceftriaxone Sodium 1 gm/ (Sodium Chloride) 100 mls @ 100 mls/hr IVPB DAILY [facility] Last Admin: 06/16/17 08:59 Dose: 100 mls/hr Insulin Glargine (Lantus) 20 unit SC HS [facility] Last Admin: 06/15/17 23:07 Dose: Not Given Insulin Human Regular (Novolin R) 0 unit SC [facility] PRN Reason: Protocol Last Admin: 06/16/17 12:08 Dose: Not Given Metoprolol Tartrate (Lopressor) 25 mg PO BID [facility] Last Admin: 06/16/17 10:09 Dose: 25 mg Pneumococcal Polyvalent Vaccine (Pneumovax 23 Vaccine) 0.5 ml IM .ONCE ONE Stop: 06/18/17 10:01 Ranolazine (Ranexa) 500 mg PO BID [facility] Last Admin: 06/16/17 10:09 Dose: 500 mg Repaglinide (Prandin) 2 mg PO DAILY [facility] Last Admin: 06/16/17 10:09 Dose: 2 mg Rosuvastatin Calcium (Crestor) 20 mg PO HS [facility] Last Admin: 06/15/17 23:07 Dose: Not Given Sacubitril/Valsartan (Entresto 24 Mg-26 Mg) 1 tab PO DAILY [facility] Last Admin: 06/16/17 10:09 Dose: 1 tab Ticagrelor (Brilinta) 90 mg PO QOD6 [facility] Last Admin: 06/15/17 18:50 Dose: 90 mg - Labs Labs: 06/16/17 07:10 06/16/17 07:10 PT 11.5 SECONDS (9.7-12.2) 06/15/17 00:57 INR 1.0 06/15/17 00:57 APTT 22 SECONDS (21-34) 06/15/17 00:57 Assessment and Plan (1) Respiratory distress Assessment & Plan: patient on BiPAP and nasal cannula intermittently.. continue IV ceftriaxone 1 g once a day daily.06/15/17 Continue IV Zithromax 500 mg once a day daily.06/15/17. Sputum Gram stain and culture.-p Status: Acute (2) Pneumonia Assessment & Plan: follow-up chest x-ray. Patient on IV Status: Acute (3) CHF exacerbation Assessment & Plan: f/u pro- bnp Status: Acute (4) Cardiomyopathy Assessment & Plan: 2-d ECHO IN PROGRESS Status: Acute (5) CAD (coronary artery disease) Status: Acute
[2017-06-16] MEDS: (Lantus) Insulin Glargine, Recombinant SC SCH (22:01)
[2017-06-17 06:42] LABS: BASO % 0.7 % (0.0-2.0); EOS # 0.2 K/uL (0.0-0.7); EOS % 3.6 % (0.0-4.0); LYMPH # 0.9 K/uL (1.0-4.3); LYMPH % 14.9 % (20.0-40.0); MEAN CELL VOLUME 87.2 fL (81.0-99.0); MEAN CORPUSCULAR HEMOGLOBIN 28.6 pg (27.0-31.0); MEAN CORPUSCULAR HGB CONC 32.9 g/dL (33.0-37.0); MEAN PLATELET VOLUME 10.9 fL (7.2-11.7); MONO # 0.7 K/uL (0.0-0.8); MONO % 11.8 % (0.0-10.0); RED CELL DISTRIBUTION WIDTH 15.8 % (11.5-14.5)
[2017-06-17] MEDS: (Novolin R) Insulin Human Regular 100 units/ml vial SC SCH ×4 (07:36→21:42)
[2017-06-17 08:01] LABS: ALB/GLOB RATIO 1.3 (1.0-2.1); BILIRUBIN,TOTAL 0.6 mg/dL (0.2-1.3); CALCIUM 8.5 mg/dl (8.6-10.4); POTASSIUM 3.7 mmol/L (3.6-5.2)
[2017-06-17] MEDS: Aspirin 325 mg EC Tablets PO SCH (09:10)
[2017-06-17] MEDS: Ranolazine 500 mg Extended Release Tablets PO SCH ×2 (09:11→17:15)
[2017-06-17] MEDS: Azithromycin 500 MG in Sodium Chloride 0.9% 250 ML IVPB SCH (09:18)
[2017-06-17] MEDS: Sacubitril/Valsartan 24-26mg Tab PO SCH (09:19)
--- NOTE | 2017-06-17 10:17 | CARD ---
APPROVED REPORT EXAM: Two-dimensional and M-mode echocardiogram with Doppler and color Doppler. Other Information Quality : GoodRhythm : NSR INDICATION Dyspnea Cardiac Disease: CAD Congestive Heart Failure RESPIRATORY DISTRESS RISK FACTORS Hypertension Hyperlipidemia Diabetes 2D DIMENSIONS IVSd1.1 (0.7-1.1cm)LVDd4.5 (3.9-5.9cm) PWd1.2 (0.7-1.1cm)LVDs4.1 (2.5-4.0cm) FS (%) 9.9 %LVEF (%)21.9 (>50%) M-Mode DIMENSIONS RVDd1.04 (2.1-3.2cm)Left Atrium (MM)2.22 (2.5-4.0cm) IVSd1.04 (0.7-1.1cm)Aortic Root2.57 (2.2-3.7cm) LVDd4.91 (4.0-5.6cm)Aortic Cusp Exc.1.65 (1.5-2.0cm) PWd1.16 (0.7-1.1cm)FS (%) 11 % LVDs4.37 (2.0-3.8cm)LVEF (%)24 (>50%) Aortic Valve AI P 1/2 [id number] Mitral Valve MV E Srprbtqc647.4cm/sMV A Psronpsx33.3cm/sE/A ratio1.1 TDI E/Lateral E'0.0E/Medial E'0.0 Tricuspid Valve TR Peak [id number]/sTR Peak Gr.[id number] LEFT VENTRICLE The left ventricle is normal size. There is normal left ventricular wall thickness. The systolic function is severely impaired. There is global hypokinesis of the left ventricle. The left ventricular diastolic function is normal. RIGHT VENTRICLE The right ventricle is normal size. ATRIA The left atrium size is normal. The right atrium size is normal. AORTIC VALVE There is trace to mild aortic regurgitation. MITRAL VALVE Mitral regurgitation is trace to mild. TRICUSPID VALVE There is mild tricuspid regurgitation. <Conclusion> Severe LV systolic dysfunction. Normal chamber size. Trace to mild AR. Trace to mild MR. Mild TR.
--- NOTE | 2017-06-17 14:02 | CP.PCM.PN ---
Subjective - Date & Time of Evaluation Date of Evaluation: 06/17/17 Time of Evaluation: 14:02 - Subjective Subjective: CHIEF COMPLAINTS TODAY : SOB ON MINIMAL EXERTION ROS. HEENT : N. Resp : No pleuritic CP ,or hemoptysis Cardio : No anginal CP, GI : No abd.pain, n/v ,diarrhea or GI bleeding . 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 Musculoskel : No joint swelling , Derm : No rash Psych : Normal affect. Ext : No swelling ,calf pain PE. Pt. is alert awake in no distress. V.S As noted in the chart Head ,ear nose,throat and eyes : Normal. Neck : Supple with normal carotids. Lungs: MARGE POOR AIR ENTRY WITH WHEEZING Heart : S1 & S2 normal with S4. No murmur. Abd : Soft non tender with normal bowel sounds. Neuro : Moves all ext. with no localized deficit. Ext : No edema with intact pulses.Non tender calves Derm : No rashes or decubitus ulcer. LABS/RADIOLOGY: CXR IMPROVING , LABS OK ASSESSMENT/PLAN : BIPAP IV LASIX/STEROIDS /AB Objective - Vital Signs/Intake and Output Vital Signs (last 24 hours): Temp Pulse Resp BP Pulse Ox 98.2 F 80 20 99/52 L 99 06/17/17 08:03 06/17/17 08:03 06/17/17 08:03 06/17/17 09:20 06/17/17 08:03 Intake and Output: 06/17/17 06/17/17 11:59 23:59 Output Total 1250 Balance -1250 - Medications Medications: Current Medications Aspirin (Ecotrin) 325 mg PO DAILY [facility] Last Admin: 06/17/17 09:10 Dose: 325 mg Furosemide (Lasix) 40 mg IVP Q12 [facility] Last Admin: 06/17/17 09:09 Dose: Not Given Heparin Sodium (Porcine) (Heparin) 5,000 units SC Q12 [facility] Last Admin: 06/17/17 09:12 Dose: 5,000 units Azithromycin 500 mg/ Sodium (Chloride) 250 mls @ 250 mls/hr IVPB DAILY [facility] Last Admin: 06/17/17 09:18 Dose: 250 mls/hr Ceftriaxone Sodium 1 gm/ (Sodium Chloride) 100 mls @ 100 mls/hr IVPB DAILY [facility] Last Admin: 06/17/17 09:13 Dose: 100 mls/hr Insulin Glargine (Lantus) 20 unit SC [facility] Last Admin: 06/16/17 22:01 Dose: 20 units Insulin Human Regular (Novolin R) 0 unit SC [facility] PRN Reason: Protocol Last Admin: 06/17/17 11:47 Dose: 3 unit Metoprolol Tartrate (Lopressor) 25 mg PO BID [facility] Last Admin: 06/17/17 09:20 Dose: Not Given Pneumococcal Polyvalent Vaccine (Pneumovax 23 Vaccine) 0.5 ml IM .ONCE ONE Stop: 06/18/17 10:01 Ranolazine (Ranexa) 500 mg PO BID [facility] Last Admin: 06/17/17 09:11 Dose: 500 mg Repaglinide (Prandin) 2 mg PO DAILY [facility] Last Admin: 06/17/17 09:11 Dose: 2 mg Rosuvastatin Calcium (Crestor) 20 mg PO HS [facility] Last Admin: 06/16/17 21:58 Dose: 20 mg Sacubitril/Valsartan (Entresto 24 Mg-26 Mg) 1 tab PO DAILY [facility] Last Admin: 06/17/17 09:19 Dose: 1 tab Ticagrelor (Brilinta) 90 mg PO QOD6 [facility] Last Admin: 06/15/17 18:50 Dose: 90 mg - Labs Labs: 06/17/17 06:35 06/17/17 06:35 PT 11.5 SECONDS (9.7-12.2) 06/15/17 00:57 INR 1.0 06/15/17 00:57 APTT 22 SECONDS (21-34) 06/15/17 00:57
[2017-06-17] MEDS: (Lantus) Insulin Glargine, Recombinant SC SCH (21:38)
--- NOTE | 2017-06-17 22:32 | CP.PCM.PN ---
Subjective - Date & Time of Evaluation Date of Evaluation: 06/17/17 Time of Evaluation: 22:32 - Subjective Subjective: CHIEF COMPLAINTS TODAY : afebrile FEELING BETTER DENIES SHORTNESS OF BREATH ROS. HEENT : N. Resp : No pleuritic CP ,or hemoptysis Cardio : No anginal CP, GI : No abd.pain, n/v ,diarrhea or GI bleeding . 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 Musculoskel : No joint swelling , Derm : No rash Psych : Normal affect. Ext : No swelling ,calf pain PE. Pt. is alert awake in no distress. V.S As noted in the chart Head ,ear nose,throat and eyes : Normal. Neck : Supple with normal carotids. Lungs: FEW RHONCHI NO WHEEZES. Heart : S1 & S2 normal with S4. No murmur. Abd : Soft non tender with normal bowel sounds. Neuro : Moves all ext. with no localized deficit. Ext : No edema with intact pulses.Non tender calves Derm : No rashes or decubitus ulcer. LABS/RADIOLOGY: WBC 6.0 IMPROVING plt 98K IMPROVING Mycoplasma IgM +ve creatinine 1.7/bun 23 gfr 29-low Chest x-ray;06/15/17. improving infiltrate and peripheral vascular congestion. Objective - Vital Signs/Intake and Output Vital Signs (last 24 hours): Temp Pulse Resp BP Pulse Ox 97.8 F 93 H 20 111/69 100 06/17/17 16:00 06/17/17 16:00 06/17/17 16:00 06/17/17 21:35 06/17/17 16:00 Intake and Output: 06/17/17 06/18/17 18:59 06:59 Intake Total 700 Output Total 600 Balance 100 - Medications Medications: Current Medications Aspirin (Ecotrin) 325 mg PO DAILY [facility] Last Admin: 06/17/17 09:10 Dose: 325 mg Furosemide (Lasix) 40 mg IVP Q12 [facility] Last Admin: 06/17/17 21:35 Dose: 40 mg Heparin Sodium (Porcine) (Heparin) 5,000 units SC Q12 [facility] Last Admin: 06/17/17 21:24 Dose: 5,000 units Azithromycin 500 mg/ Sodium (Chloride) 250 mls @ 250 mls/hr IVPB DAILY [facility] Last Admin: 06/17/17 09:18 Dose: 250 mls/hr Ceftriaxone Sodium 1 gm/ (Sodium Chloride) 100 mls @ 100 mls/hr IVPB DAILY [facility] Last Admin: 06/17/17 09:13 Dose: 100 mls/hr Insulin Glargine (Lantus) [address] [facility] Last Admin: 06/17/17 21:38 Dose: 20 units Insulin Human Regular (Novolin R) 0 unit SC [facility] PRN Reason: Protocol Last Admin: 06/17/17 21:42 Dose: Not Given Lactulose (Enulose) [address] [facility] Last Admin: 06/17/17 21:30 Dose: Not Given Metoprolol Tartrate (Lopressor) 25 mg PO BID [facility] Last Admin: 06/17/17 17:14 Dose: Not Given Pneumococcal Polyvalent Vaccine (Pneumovax 23 Vaccine) 0.5 ml IM .ONCE ONE Stop: 06/18/17 10:01 Ranolazine (Ranexa) 500 mg PO BID [facility] Last Admin: 06/17/17 17:15 Dose: 500 mg Repaglinide (Prandin) 2 mg PO DAILY [facility] Last Admin: 06/17/17 09:11 Dose: 2 mg Rosuvastatin Calcium (Crestor) 20 mg PO HS [facility] Last Admin: 06/17/17 21:29 Dose: 20 mg Sacubitril/Valsartan (Entresto 24 Mg-26 Mg) 1 tab PO DAILY [facility] Last Admin: 06/17/17 09:19 Dose: 1 tab Ticagrelor (Brilinta) 90 mg PO QOD6 [facility] Last Admin: 06/17/17 17:15 Dose: 90 mg - Labs Labs: 06/17/17 06:35 06/17/17 06:35 PT 11.5 SECONDS (9.7-12.2) 06/15/17 00:57 INR 1.0 06/15/17 00:57 APTT 22 SECONDS (21-34) 06/15/17 00:57 Assessment and Plan (1) Respiratory distress Status: Acute (2) Pneumonia Assessment & Plan: continue IV ceftriaxone 1 g once a day daily.06/15/17 Continue IV Zithromax 500 mg once a day daily.06/15/17. f/u CXR. Status: Acute (3) CHF exacerbation Status: Acute (4) Cardiomyopathy Assessment & Plan: 2-D echo to follow Status: Acute (5) CAD (coronary artery disease) Status: Acute
[2017-06-18 07:00] LABS: ALB/GLOB RATIO 0.9 (1.0-2.1); BILIRUBIN,TOTAL 0.3 mg/dL (0.2-1.3); CALCIUM 8.7 mg/dl (8.6-10.4); POTASSIUM 3.7 mmol/L (3.6-5.2)
[2017-06-18 07:30] LABS: BASO % 0.5 % (0.0-2.0); EOS # 0.2 K/uL (0.0-0.7); EOS % 2.8 % (0.0-4.0); HEMATOCRIT 36.4 % (34.0-47.0); LYMPH # 0.6 K/uL (1.0-4.3); LYMPH % 9.8 % (20.0-40.0); MEAN CELL VOLUME 86.8 fL (81.0-99.0); MEAN CORPUSCULAR HEMOGLOBIN 28.5 pg (27.0-31.0); MEAN CORPUSCULAR HGB CONC 32.9 g/dL (33.0-37.0); MEAN PLATELET VOLUME 11.7 fL (7.2-11.7); MONO # 0.7 K/uL (0.0-0.8); MONO % 11.4 % (0.0-10.0); PLATELET COUNT 101 K/uL (130-400); RED CELL DISTRIBUTION WIDTH 15.6 % (11.5-14.5); WHITE BLOOD COUNT 6.2 K/uL (4.8-10.8)
[2017-06-18] MEDS: (Novolin R) Insulin Human Regular 100 units/ml vial SC SCH ×4 (07:44→21:32)
[2017-06-18 09:06] LABS: BASOPHIL 1 % (0-2); EOSINOPHIL 5 % (0-4); NEUTROPHIL 71 % (50-75); REACTIVE LYMPHOCYTES 1 % (0-0); TOTAL CELLS COUNTED 100
[2017-06-18] MEDS: Ranolazine 500 mg Extended Release Tablets PO SCH ×2 (09:29→17:46)
[2017-06-18] MEDS: Sacubitril/Valsartan 24-26mg Tab PO SCH (09:30)
[2017-06-18] MEDS: Aspirin 325 mg EC Tablets PO SCH (09:31)
[2017-06-18] MEDS ORDERED: Pneumococcal 23-Valent Vaccine IM ONE (10:00)
[2017-06-18] MEDS ORDERED: Influenza Vaccine 60 mcg/0.5 mL SYR (4YR UP) IM ONE (10:00)
[2017-06-18] MEDS: Azithromycin 500 MG in Sodium Chloride 0.9% 250 ML IVPB SCH (11:20)
--- NOTE | 2017-06-18 13:49 | CP.PCM.PN ---
Subjective - Date & Time of Evaluation Date of Evaluation: 06/18/17 Time of Evaluation: 13:48 - Subjective Subjective: CHIEF COMPLAINTS TODAY : SOB ON MINIMAL EXERTION ROS. HEENT : N. Resp : No pleuritic CP ,or hemoptysis Cardio : No anginal CP, GI : No abd.pain, n/v ,diarrhea or GI bleeding . 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 Musculoskel : No joint swelling , Derm : No rash Psych : Normal affect. Ext : No swelling ,calf pain PE. Pt. is alert awake in no distress. V.S As noted in the chart Head ,ear nose,throat and eyes : Normal. Neck : Supple with normal carotids. Lungs: MARGE POOR AIR ENTRY WITH WHEEZING Heart : S1 & S2 normal with S4. No murmur. Abd : Soft non tender with normal bowel sounds. Neuro : Moves all ext. with no localized deficit. Ext : No edema with intact pulses.Non tender calves Derm : No rashes or decubitus ulcer. LABS/RADIOLOGY: CXR IMPROVING , LABS OK ASSESSMENT/PLAN : BIPAP IV LASIX/STEROIDS /AB Objective - Vital Signs/Intake and Output Vital Signs (last 24 hours): Temp Pulse Resp BP Pulse Ox 98.8 F 90 20 104/62 100 06/18/17 08:22 06/18/17 08:22 06/18/17 08:22 06/18/17 09:32 06/18/17 08:22 - Medications Medications: Current Medications Aspirin (Ecotrin) 325 mg PO DAILY [facility] Last Admin: 06/18/17 09:31 Dose: 325 mg Furosemide (Lasix) 40 mg IVP Q12 [facility] Last Admin: 06/18/17 09:32 Dose: Not Given Azithromycin 500 mg/ Sodium (Chloride) 250 mls @ 250 mls/hr IVPB DAILY [facility] Last Admin: 06/18/17 11:20 Dose: 250 mls/hr Ceftriaxone Sodium 1 gm/ (Sodium Chloride) 100 mls @ 100 mls/hr IVPB DAILY [facility] Last Admin: 06/18/17 09:33 Dose: 100 mls/hr Insulin Glargine (Lantus) 20 unit SC HS [facility] Last Admin: 06/17/17 21:38 Dose: 20 units Insulin Human Regular (Novolin R) 0 unit SC [facility] PRN Reason: Protocol Last Admin: 06/18/17 11:39 Dose: Not Given Lactulose (Enulose) 20 gm PO HS [facility] Last Admin: 06/17/17 21:30 Dose: Not Given Metoprolol Tartrate (Lopressor) 25 mg PO BID [facility] Last Admin: 06/18/17 09:32 Dose: Not Given Ranolazine (Ranexa) 500 mg PO BID [facility] Last Admin: 06/18/17 09:29 Dose: 500 mg Repaglinide (Prandin) 2 mg PO DAILY [facility] Last Admin: 06/18/17 09:30 Dose: 2 mg Rosuvastatin Calcium (Crestor) 20 mg PO HS [facility] Last Admin: 06/17/17 21:29 Dose: 20 mg Sacubitril/Valsartan (Entresto 24 Mg-26 Mg) 1 tab PO DAILY [facility] Last Admin: 06/18/17 09:30 Dose: 1 tab Ticagrelor (Brilinta) 90 mg PO QOD6 [facility] Last Admin: 06/17/17 17:15 Dose: 90 mg - Labs Labs: 06/18/17 06:37 06/18/17 06:37 PT 11.5 SECONDS (9.7-12.2) 06/15/17 00:57 INR 1.0 06/15/17 00:57 APTT 22 SECONDS (21-34) 06/15/17 00:57
--- NOTE | 2017-06-18 19:31 | CARD ---
APPROVED REPORT EKG Measurement Heart [id number] [id number] <Conclusion> Normal sinus rhythm Left bundle branch block Abnormal ECG
--- NOTE | 2017-06-18 19:38 | CARD ---
APPROVED REPORT EKG Measurement Heart [id number] [place] 128P2 [id number] <Conclusion> Sinus tachycardia Possible Left atrial enlargement Left bundle branch block Abnormal ECG
[2017-06-18] MEDS: (Lantus) Insulin Glargine, Recombinant SC SCH (21:33)
--- NOTE | 2017-06-18 23:18 | CP.PCM.PN ---
Subjective - Date & Time of Evaluation Date of Evaluation: 06/18/17 Time of Evaluation: 23:18 - Subjective Subjective: CHIEF COMPLAINTS TODAY : afebrile FEELING BETTER DENIES SHORTNESS OF BREATH ROS. HEENT : N. Resp : No pleuritic CP ,or hemoptysis Cardio : No anginal CP, GI : No abd.pain, n/v ,diarrhea or GI bleeding . 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 Musculoskel : No joint swelling , Derm : No rash Psych : Normal affect. Ext : No swelling ,calf pain PE. Pt. is alert awake in no distress. V.S As noted in the chart Head ,ear nose,throat and eyes : Normal. Neck : Supple with normal carotids. Lungs: FEW RHONCHI NO WHEEZES. Heart : S1 & S2 normal with S4. No murmur. Abd : Soft non tender with normal bowel sounds. Neuro : Moves all ext. with no localized deficit. Ext : No edema with intact pulses.Non tender calves Derm : No rashes or decubitus ulcer. LABS/RADIOLOGY: WBC 6.2 IMPROVING plt 101K IMPROVING Mycoplasma IgM +ve creatinine 1.8/bun 22 gfr 29-low LFTS N Objective - Vital Signs/Intake and Output Vital Signs (last 24 hours): Temp Pulse Resp BP Pulse Ox 98.4 F 130 H 16 145/77 95 06/18/17 15:00 06/18/17 21:30 06/18/17 15:00 06/18/17 21:30 06/18/17 15:00 Intake and Output: 06/18/17 06/19/17 18:59 06:59 Intake Total 650 Balance 650 - Medications Medications: Current Medications Aspirin (Ecotrin) 325 mg PO DAILY [facility] Last Admin: 06/18/17 09:31 Dose: 325 mg Furosemide (Lasix) 40 mg IVP Q12 [facility] Last Admin: 06/18/17 21:25 Dose: 40 mg Azithromycin 500 mg/ Sodium (Chloride) 250 mls @ 250 mls/hr IVPB DAILY [facility] Last Admin: 06/18/17 11:20 Dose: 250 mls/hr Ceftriaxone Sodium 1 gm/ (Sodium Chloride) 100 mls @ 100 mls/hr IVPB DAILY [facility] Last Admin: 06/18/17 09:33 Dose: 100 mls/hr Insulin Glargine (Lantus) 20 unit SC [facility] Last Admin: 06/18/17 21:33 Dose: Not Given Insulin Human Regular (Novolin R) 0 unit SC [facility] PRN Reason: Protocol Last Admin: 06/18/17 21:32 Dose: Not Given Lactulose (Enulose) 20 gm PO [facility] Last Admin: 06/18/17 21:34 Dose: Not Given Metoprolol Tartrate (Lopressor) 25 mg PO BID [facility] Last Admin: 06/18/17 17:22 Dose: Not Given Ranolazine (Ranexa) 500 mg PO BID [facility] Last Admin: 06/18/17 17:46 Dose: 500 mg Repaglinide (Prandin) 2 mg PO DAILY [facility] Last Admin: 06/18/17 09:30 Dose: 2 mg Rosuvastatin Calcium (Crestor) 20 mg PO HS [facility] Last Admin: 06/18/17 21:24 Dose: 20 mg Sacubitril/Valsartan (Entresto 24 Mg-26 Mg) 1 tab PO DAILY [facility] Last Admin: 06/18/17 09:30 Dose: 1 tab Ticagrelor (Brilinta) 90 mg PO QOD6 [facility] Last Admin: 06/17/17 17:15 Dose: 90 mg - Labs Labs: 06/18/17 06:37 06/18/17 06:37 PT 11.5 SECONDS (9.7-12.2) 06/15/17 00:57 INR 1.0 06/15/17 00:57 APTT 22 SECONDS (21-34) 06/15/17 00:57 Assessment and Plan (1) Respiratory distress Assessment & Plan: PATIENT DENIES SHORTNESS OF BREATH DENIES ANY EXPECTORATION. C/O INTERMITTENT DRY COUGH . Status: Acute (2) Pneumonia Assessment & Plan: continue IV ceftriaxone 1 g once a day daily.06/15/17 Continue IV Zithromax 500 mg once a day daily.06/15/17. CASE DISCUSSED WITH PMD. 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 DC IV CEFTRIAXONE IN A.M. CONTINUE ZITHROMAX 500 MG BY MOUTH DAILY X 5 DAYS. FOLLOW CHEST X-RAY OUTPATIENT AFTER COMPLETION OF THERAPY. Status: Acute (3) CHF exacerbation Status: Acute (4) Cardiomyopathy Assessment & Plan: 2-D echo noted. SEVERE LEFT VENTRICLE systolic DYSFUNCTION MILD AR. mild MR. MILD TR Status: Acute (5) CAD (coronary artery disease) Status: Acute
[2017-06-19 07:28] LABS: BASO % 0.8 % (0.0-2.0); EOS # 0.2 K/uL (0.0-0.7); EOS % 4.7 % (0.0-4.0); HEMATOCRIT 33.7 % (34.0-47.0); LYMPH # 0.9 K/uL (1.0-4.3); LYMPH % 18.6 % (20.0-40.0); MEAN CORPUSCULAR HEMOGLOBIN 28.5 pg (27.0-31.0); MEAN CORPUSCULAR HGB CONC 32.8 g/dL (33.0-37.0); MONO # 0.6 K/uL (0.0-0.8); MONO % 12.7 % (0.0-10.0); RED CELL DISTRIBUTION WIDTH 15.7 % (11.5-14.5)
[2017-06-19 07:54] VITALS: PULSE 93
[2017-06-19 08:17] VITALS: RESP 18; TEMP 97.5; O2SAT 98
[2017-06-19 08:22] LABS: ALB/GLOB RATIO 1.2 (1.0-2.1); BILIRUBIN,TOTAL 0.7 mg/dL (0.2-1.3); CALCIUM 8.6 mg/dl (8.6-10.4); POTASSIUM 4.2 mmol/L (3.6-5.2); TOTAL PROTEIN 5.9 g/dL (6.3-8.3)
[2017-06-19] MEDS: (Novolin R) Insulin Human Regular 100 units/ml vial SC SCH ×2 (09:46→12:25)
[2017-06-19] MEDS: Aspirin 325 mg EC Tablets PO SCH (09:57)
[2017-06-19] MEDS: Sacubitril/Valsartan 24-26mg Tab PO SCH (09:58)
[2017-06-19] MEDS: Ranolazine 500 mg Extended Release Tablets PO SCH (09:59)
[2017-06-19 10:00] VITALS: BP 135/74
[2017-06-19] MEDS: Azithromycin 500 MG in Sodium Chloride 0.9% 250 ML IVPB SCH (10:06)
--- NOTE | 2017-06-19 14:08 | CP.PCM.DIS ---
Provider - Provider Date of Admission: 06/15/17 02:30 Attending physician: Uriah Hernández MD Time Spent in preparation of Discharge (in minutes): 35 Hospital Course - Lab Results Lab Results: Micro Results 06/15/17 04:15 Blood-Venous Blood Culture - Preliminary NO GROWTH AFTER 3 DAYS 06/15/17 00:45 Blood-Venous Blood Culture - Preliminary NO GROWTH AFTER 3 DAYS 06/15/17 17:11 Naris MRSA Culture (Admit) - Final MRSA NOT DETECTED Most Recent Lab Values WBC 5.0 K/uL (4.8-10.8) 06/19/17 07:12 RBC 3.88 Mil/uL (3.80-5.20) 06/19/17 07:12 Hgb 11.1 g/dL (11.0-16.0) 06/19/17 07:12 Hct 33.7 % (34.0-47.0) L 06/19/17 07:12 MCV 87.0 fL (81.0-99.0) 06/19/17 07:12 MCH 28.5 pg (27.0-31.0) 06/19/17 07:12 MCHC 32.8 g/dL (33.0-37.0) L 06/19/17 07:12 RDW 15.7 % (11.5-14.5) H 06/19/17 07:12 Plt Count 95 K/uL (130-400) L 06/19/17 07:12 MPV 11.0 fL (7.2-11.7) 06/19/17 07:12 Neut % (Auto) 63.2 % (50.0-75.0) 06/19/17 07:12 Lymph % (Auto) 18.6 % (20.0-40.0) L 06/19/17 07:12 [place] % (Auto) 12.7 % (0.0-10.0) H 06/19/17 07:12 Eos % (Auto) 4.7 % (0.0-4.0) H 06/19/17 07:12 Baso % (Auto) 0.8 % (0.0-2.0) 06/19/17 07:12 Neut # 3.1 K/uL (1.8-7.0) 06/19/17 07:12 Lymph # 0.9 K/uL (1.0-4.3) L 06/19/17 07:12 [place] # 0.6 K/uL (0.0-0.8) 06/19/17 07:12 Eos # 0.2 K/uL (0.0-0.7) 06/19/17 07:12 Baso # 0.0 K/uL (0.0-0.2) 06/19/17 07:12 Neutrophils % (Manual) 71 % (50-75) 06/18/17 06:37 Band Neutrophils % 3 % (0-2) H 06/18/17 06:37 Lymphocytes % (Manual) 8 % (20-40) L 06/18/17 06:37 Reactive Lymphs % 1 % (0-0) H 06/18/17 06:37 Monocytes % (Manual) 11 % (0-10) H 06/18/17 06:37 Eosinophils % (Manual) 5 % (0-4) H 06/18/17 06:37 Basophils % (Manual) 1 % (0-2) 06/18/17 06:37 Differential Comment 06/15/17 09:20 Platelet Estimate Slightly decreased (NORMAL) L 06/18/17 06:37 Anisocytosis (manual) Slight 06/18/17 06:37 ESR 40 mm/hr (0-20) H 06/15/17 18:19 PT 11.5 SECONDS (9.7-12.2) 06/15/17 00:57 INR 1.0 06/15/17 00:57 APTT 22 SECONDS (21-34) 06/15/17 00:57 Puncture Site Rr 06/15/17 01:05 pCO2 34 mm/Hg (35-45) L 06/15/17 01:05 pO2 57 mm/Hg (80-100) L 06/15/17 01:05 HCO3 21.9 mmol/L (21-28) 06/15/17 01:05 ABG pH 7.39 (7.35-7.45) 06/15/17 01:05 ABG Total CO2 21.6 mmol/L (22-28) L 06/15/17 01:05 ABG O2 Saturation 93.3 % (95-98) L 06/15/17 01:05 ABG Base Excess -3.6 mmol/L (-2.0-3.0) L 06/15/17 01:05 [place] Test Pos 06/15/17 01:05 ABG Potassium 4.5 mmol/L (3.6-5.2) 06/15/17 01:05 A-a O2 Difference 100.0 mm/Hg 06/15/17 01:05 Respiratory Index 1.8 06/15/17 01:05 Sodium 139.0 mmol/l (132-148) 06/15/17 01:05 Chloride 109.0 mmol/L (98-107) H 06/15/17 01:05 Glucose 184 mg/dl (65-105) H 06/15/17 01:05 Lactate 1.0 mmol/L (0.7-2.1) 06/15/17 01:05 Liter Flow 2.0 06/15/17 01:05 FiO2 28.0 % 06/15/17 01:05 Sodium 138 mmol/L (132-148) 06/19/17 07:12 Potassium 4.2 mmol/L (3.6-5.2) 06/19/17 07:12 Chloride 99 mmol/L (98-107) 06/19/17 07:12 Carbon Dioxide 35 mmol/L (22-30) H 06/19/17 07:12 Anion Gap 8 (10-20) L 06/19/17 07:12 BUN 30 mg/dL (7-17) H 06/19/17 07:12 Creatinine 2.0 mg/dL (0.7-1.2) H 06/19/17 07:12 Est GFR ( Amer) 29 06/19/17 07:12 Est GFR (Non-Af Amer) 24 06/19/17 07:12 POC Glucose (mg/dL) 252 mg/dL (65-110) H 06/19/17 11:40 Random Glucose 102 mg/dL (65-105) 06/19/17 07:12 Calcium 8.6 mg/dl (8.6-10.4) 06/19/17 07:12 Total Bilirubin 0.7 mg/dL (0.2-1.3) 06/19/17 07:12 AST 28 U/L (14-36) 06/19/17 07:12 ALT 31 U/L (9-52) 06/19/17 07:12 Alkaline Phosphatase 48 U/L (38-126) 06/19/17 07:12 Total Creatine Kinase 55 U/L (30-135) 06/15/17 18:19 CK-MB (Mass) 1.71 ng/mL (0.0-3.38) 06/15/17 18:19 Troponin I 0.0780 ng/mL (0.00-0.120) 06/15/17 18:19 C-React Prot High Sens 2.83 mg/L (1.00-3.00) 06/16/17 13:44 NT-Pro-B Natriuret Pep 88157 pg/mL (0-900) H 06/15/17 00:57 Total Protein 5.9 g/dL (6.3-8.3) L 06/19/17 07:12 Albumin 3.2 g/dL (3.5-5.0) L 06/19/17 07:12 Globulin 2.7 gm/dL (2.2-3.9) 06/19/17 07:12 Albumin/Globulin Ratio 1.2 (1.0-2.1) 06/19/17 07:12 Arterial Blood Potassium 4.5 mmol/L (3.6-5.2) 06/15/17 01:05 Urine Color Straw (YELLOW) 06/15/17 03:44 Urine Clarity Clear (Clear) 06/15/17 03:44 Urine pH 5.0 (5.0-8.0) 06/15/17 03:44 Ur Specific [place] 1.005 (1.003-1.030) 06/15/17 03:44 Urine Protein Negative mg/dL (NEGATIVE) 06/15/17 03:44 Urine Glucose (UA) Normal mg/dL (Normal) 06/15/17 03:44 Urine Ketones Negative mg/dL (NEGATIVE) 06/15/17 03:44 Urine Blood 1+ (NEGATIVE) H 06/15/17 03:44 Urine Nitrate Negative (NEGATIVE) 06/15/17 03:44 Urine Bilirubin Negative (NEGATIVE) 06/15/17 03:44 Urine Urobilinogen Normal mg/dL (0.2-1.0) 06/15/17 03:44 Ur Leukocyte Esterase 1+ Rolf/uL (Negative) H 06/15/17 03:44 Urine WBC (Auto) 3 /hpf (0-5) 06/15/17 03:44 Urine RBC (Auto) 2 /hpf (0-3) 06/15/17 03:44 Ur Squamous Epith Cells < 1 /hpf (0-5) 06/15/17 03:44 Ur L.pneumophila Ag Negative (NEGATIVE) 06/16/17 07:40 Mycoplasma pneumon IgM Positive (NEGATIVE) H 06/15/17 18:19 - Hospital Course Hospital Course: FOR LAST FEW DAYS PT HAS SOB AND INCREASINGLY GETTING WORSE WITH SOB AT REST A/ E COUGH AND WHEEZING MILD EXPECTORATION IN [facility] ER PT HAD CHF/PNEUMONIA AND IMPROVED ON IV LASIX WITH BIPAP PAST HIST. CAD/2 STENTS RECENT /CARIOMYOPATHY EF 30% / T2DM/COPD/FE DEF ANEMIA / PT RESPONDED TO IV LASIX/STEROIDS/BIPAP AND AB CXR SHOWED IMPROVEMENT D/W ID D/C ON PO MEDS AT HOME AND PO AB Discharge Exam - Head Exam Head Exam: NORMAL INSPECTION Discharge Plan - Follow Up Plan Condition: GUARDED Disposition: HOME/ ROUTINE
--- NOTE | 2017-06-19 14:14 | CP.PCM.PN ---
Subjective - Date & Time of Evaluation Date of Evaluation: 06/19/17 Time of Evaluation: 14:01 - Subjective Subjective: afebrile no acute events overnight. NO SOB, NO CHEST PAIN CASE DISCUSSED W ELECTRICIAN WIRING MS MASSEY DC IV ABX,' START PO ZITHROMAX 500MG WITH FOOD OD X 5 DAYS. Objective - Vital Signs/Intake and Output Vital Signs (last 24 hours): Temp Pulse Resp BP Pulse Ox 97.5 F L 93 H 18 135/74 98 06/19/17 07:05 06/19/17 07:45 06/19/17 07:05 06/19/17 09:58 06/19/17 07:05 - Medications Medications: Current Medications Aspirin (Ecotrin) 325 mg PO DAILY [facility] Last Admin: 06/19/17 09:57 Dose: 325 mg Furosemide (Lasix) 40 mg IVP Q12 [facility] Last Admin: 06/19/17 09:58 Dose: 40 mg Azithromycin 500 mg/ Sodium (Chloride) 250 mls @ 250 mls/hr IVPB DAILY [facility] Last Admin: 06/19/17 10:06 Dose: 250 mls/hr Ceftriaxone Sodium 1 gm/ (Sodium Chloride) 100 mls @ 100 mls/hr IVPB DAILY [facility] Last Admin: 06/19/17 09:59 Dose: 100 mls/hr Insulin Glargine (Lantus) 20 unit SC [facility] Last Admin: 06/18/17 21:33 Dose: Not Given Insulin Human Regular (Novolin R) [address] [facility] PRN Reason: Protocol Last Admin: 06/19/17 12:25 Dose: 4 unit Lactulose (Enulose) 20 gm PO HS [facility] Last Admin: 06/18/17 21:34 Dose: Not Given Metoprolol Tartrate (Lopressor) 25 mg PO BID [facility] Last Admin: 06/19/17 09:57 Dose: 25 mg Ranolazine (Ranexa) 500 mg PO BID [facility] Last Admin: 06/19/17 09:59 Dose: 500 mg Repaglinide (Prandin) 2 mg PO DAILY [facility] Last Admin: 06/19/17 09:58 Dose: 2 mg Rosuvastatin Calcium (Crestor) 20 mg PO HS [facility] Last Admin: 06/18/17 21:24 Dose: 20 mg Sacubitril/Valsartan (Entresto 24 Mg-26 Mg) 1 tab PO DAILY [facility] Last Admin: 06/19/17 09:58 Dose: 1 tab Ticagrelor (Brilinta) 90 mg PO QOD6 [facility] Last Admin: 06/17/17 17:15 Dose: 90 mg - Labs Labs: 06/19/17 07:12 06/19/17 07:12 PT 11.5 SECONDS (9.7-12.2) 06/15/17 00:57 INR 1.0 06/15/17 00:57 APTT 22 SECONDS (21-34) 06/15/17 00:57 - Constitutional Appears: No Acute Distress - Head Exam Head Exam: NORMAL INSPECTION - Eye Exam Eye Exam: EOMI, PERRL - ENT Exam ENT Exam: Normal Oropharynx - Respiratory Exam Respiratory Exam: Rhonchi (FEW SCATTERRED RHONCHI), NORMAL BREATHING PATTERN. absent: Wheezes - Cardiovascular Exam Cardiovascular Exam: REGULAR RHYTHM, +S1 - GI/Abdominal Exam GI & Abdominal Exam: Soft, Normal Bowel Sounds - Neurological Exam Neurological Exam: Awake, CN II-XII Intact, Oriented x3 - Skin Skin Exam: Normal Color, Warm Assessment and Plan (1) Respiratory distress Assessment & Plan: COMFORTABLE LYING FLAT Status: Acute (2) Pneumonia Assessment & Plan: ABOVE . DC IV ABX PO ZITHROMAX 500MG X5DAYS. F/U CXR OUTPATIENT. Status: Acute (3) CHF exacerbation Status: Acute (4) Cardiomyopathy Status: Acute (5) CAD (coronary artery disease) Status: Acute
--- NOTE | 2017-06-19 14:15 | CP.PCM.PN ---
Subjective - Date & Time of Evaluation Date of Evaluation: 06/19/17 Time of Evaluation: 13:50 - Subjective Subjective: [employer] NOTES Patient seen today and examined , awake, alert, ox3, denies any chest pain, sob, m cough, fever, chills, abdominal pain /n/v/d a febrile Objective - Vital Signs/Intake and Output Vital Signs (last 24 hours): Temp Pulse Resp BP Pulse Ox 97.5 F L 93 H 18 135/74 98 06/19/17 07:05 06/19/17 14:13 06/19/17 07:05 06/19/17 09:58 06/19/17 07:05 - Medications Medications: Current Medications Aspirin (Ecotrin) 325 mg PO DAILY [facility] Last Admin: 06/19/17 09:57 Dose: 325 mg Furosemide (Lasix) 40 mg IVP Q12 [facility] Last Admin: 06/19/17 09:58 Dose: 40 mg Azithromycin 500 mg/ Sodium (Chloride) 250 mls @ 250 mls/hr IVPB DAILY [facility] Last Admin: 06/19/17 10:06 Dose: 250 mls/hr Ceftriaxone Sodium 1 gm/ (Sodium Chloride) 100 mls @ 100 mls/hr IVPB DAILY [facility] Last Admin: 06/19/17 09:59 Dose: 100 mls/hr Insulin Glargine (Lantus) 20 unit SC [facility] Last Admin: 06/18/17 21:33 Dose: Not Given Insulin Human Regular (Novolin R) 0 unit SC [facility] PRN Reason: Protocol Last Admin: 06/19/17 12:25 Dose: 4 unit Lactulose (Enulose) 20 gm PO [facility] Last Admin: 06/18/17 21:34 Dose: Not Given Metoprolol Tartrate (Lopressor) 25 mg PO BID [facility] Last Admin: 06/19/17 09:57 Dose: 25 mg Ranolazine (Ranexa) 500 mg PO BID [facility] Last Admin: 06/19/17 09:59 Dose: 500 mg Repaglinide (Prandin) 2 mg PO DAILY [facility] Last Admin: 06/19/17 09:58 Dose: 2 mg Rosuvastatin Calcium (Crestor) 20 mg PO [facility] Last Admin: 06/18/17 21:24 Dose: 20 mg Sacubitril/Valsartan (Entresto 24 Mg-26 Mg) 1 tab PO DAILY [facility] Last Admin: 06/19/17 09:58 Dose: 1 tab Ticagrelor (Brilinta) 90 mg PO QOD6 [facility] Last Admin: 06/17/17 17:15 Dose: 90 mg - Labs Labs: 06/19/17 07:12 06/19/17 07:12 PT 11.5 SECONDS (9.7-12.2) 06/15/17 00:57 INR 1.0 06/15/17 00:57 APTT 22 SECONDS (21-34) 06/15/17 00:57 - Constitutional Appears: Well, No Acute Distress - Respiratory Exam Respiratory Exam: Rhonchi, NORMAL BREATHING PATTERN - Cardiovascular Exam Cardiovascular Exam: REGULAR RHYTHM, +S1, +S2 - Neurological Exam Neurological Exam: Alert, Awake, Oriented x3 Assessment and Plan - Assessment and Plan (Free Text) Assessment: A/P 86 yr old female admitted with sob/pneumonia/ chf blood cultures -negative D/W Dr. Bryanna uribe , cleared for discharge home today with 5 days of zithromax and f /u with Dr. Hernández office in 1 week D/W Dr. Isbell, stable for discharge home today and f/u with his offfice in 1 week Discharge plan discussed with patient and family at bed emilia e, who understands and agrees with plan rx e prescribed to patient pharmacy
--- NOTE | 2017-06-19 14:27 | PCM.HF ---
Heart Failure Core Measure - Heart Failure Ejection Fraction: Less Than 40 % MAGNOLIA Inhibitor Prescribed: Yes Beta-Reid Prescribed: Metoprolol Succinate Angiotensin II Receptor Reid Prescribed: Yes AnticoagulationTherapy for Atrial Fibrillation/Atrialflutter: No Contraindication/Reason for not providing: no hx of a ib Aldosterone Antagonist Prescribed: No Contraindication/Reason for not providing: ARF Hydralazine Nitrate Prescribed: No Contraindication/Reason for not providing: bp running low Implantable Cardioverter Defibrillator Therapy: No Contraindication/Reason for not providing: pt has pacemaker Cardiac Resynchronization Therapy Prescribed: No Contraindication/Reason for not providing: NSR and pt has pacemaker
[2017-06-19] MEDS ORDERED: Nitroglycerin 2% Ointment Foilpak UD TOP ONE (14:30)
== END 2017-06-19 14:50 | disposition home or self-care (01) | DRG 291 ==
LOC: C.ER 00:07 → C.9E 02:30 → C.6T 17:51
PROVIDERS: ADMIT Internal Medicine Cardiovascular Disease; ATTEND Internal Medicine Cardiovascular Disease
PROC: 5A09457 Assistance with Respiratory Ventilation, 24-96 Consecutive Hours, Continuous Positive Airway Pressure (ICD-10-PCS; principal; 2017-06-15)
DX: I11.0 Hypertensive heart disease with heart failure (principal); J18.9 Pneumonia, unspecified organism; J96.01 Acute respiratory failure with hypoxia; J44.0 Chronic obstructive pulmonary disease with (acute) lower respiratory infection; I50.23 Acute on chronic systolic (congestive) heart failure; D64.9 Anemia, unspecified; E11.9 Type 2 diabetes mellitus without complications; E78.00 Pure hypercholesterolemia, unspecified; I25.10 Atherosclerotic heart disease of native coronary artery without angina pectoris; Z86.73 Personal history of transient ischemic attack (TIA), and cerebral infarction without residual deficits; Z90.49 Acquired absence of other specified parts of digestive tract; Z95.0 Presence of cardiac pacemaker; Z95.5 Presence of coronary angioplasty implant and graft

== ENCOUNTER 2017-08-16 16:06 | Inpatient (IN) | payer MEDICARE ==
[2017-08-16 16:06] VITALS: BMI 25.5
[2017-08-16] MEDS ORDERED: Albuterol-Ipratrop 3 mg / 0.5 (3 ml) UD INH STA ×3 (16:42→20:31)
--- NOTE | 2017-08-16 17:01 | C.PDOC ---
History Of Present Illness 87 y/o female presents to ED with complaints of productive white phlegm cough with associated sob for 2-3 weeks. Patient states she saw PMD Dr. Hernández 3 days ago and was given Levaquin and Prednisone. Patient reports no improvement which prompted visit to ED today and denies vomiting, diarrhea, chest pain or any other complaints at this time. Chief Complaint (Nursing): Shortness Of Breath History Per: Patient History/Exam Limitations: no limitations Onset/Duration Of Symptoms: Days Current Symptoms Are (Timing): Still Present Initiating Event: Upper Respiratory Illness Past Medical History Reviewed: Historical Data, Nursing Documentation, Vital Signs Vital Signs: Last Vital Signs Temp 98.1 F 08/17/17 15:48 Pulse 89 08/17/17 15:48 Resp 20 08/17/17 15:48 BP 110/68 08/17/17 15:48 Pulse Ox 99 08/17/17 15:48 - Medical History PMH: Anemia, Anxiety, Arthritis (BACK AND KNEES AND R SHOULDER), Asthma, Cardia Arrhythmia, CHF, COPD, Diabetes, HTN, Hypercholesterolemia, TIA Surgical History: Appendectomy, Coronary Stent, Endoscopy, Pacemaker (2016) - [employer] Procedures ASSISTANCE WITH RESPIRATORY VENTILATION, 24-96 HRS, CPAP (06/15/17) ASSISTANCE WITH RESPIRATORY VENTILATION, <24 HRS, CPAP (02/06/16) ESOPHAGOGASTRODUODENOSCOPY [EGD] W/CLOSED BIOPSY (12/30/14) LEFT HEART CARDIAC CATH (10/19/13) LT HEART ANGIOCARDIOGRAM (10/19/13) MEASURE OF CARDIAC SAMPL & PRESSURE, L HEART, PERC APPROACH (05/21/15) PACKED CELL TRANSFUSION (12/30/14) PLAIN RADIOGRAPHY OF MULT COR ART USING OTH CONTRAST (05/21/15) TRANSFUSE NONAUT RED BLOOD CELLS IN PERIPH VEIN, PERC (02/06/16) Family History: States: No Known Family Hx - Social History Hx Tobacco Use: No Hx Alcohol Use: No Hx Substance Use: No - Immunization History Hx Tetanus Toxoid Vaccination: No Hx Influenza Vaccination: Yes Hx Pneumococcal Vaccination: Yes Review Of Systems Constitutional: Negative for: Fever, Chills Cardiovascular: Negative for: Chest Pain Respiratory: Positive for: Cough, Shortness of Breath Gastrointestinal: Negative for: Nausea, Vomiting Physical Exam - Physical Exam Appears: Non-toxic, No Acute Distress Skin: Warm, Dry, No Rash Head: Atraumatic, Normacephalic Oral Mucosa: Moist Neck: Supple Cardiovascular: Rhythm Regular Respiratory: No Rales, No Rhonchi, Wheezing (Expiratory bilateral) Gastrointestinal/Abdominal: Soft, No Tenderness, No Guarding, No Rebound Extremity: Other (+1 pitting edema b/l) Neurological/Psych: Oriented x3 ED Course And Treatment - Laboratory Results Result Diagrams: 08/17/17 07:32 08/17/17 07:32 ECG: Interpreted By Me, Viewed By Me ECG Rhythm: Sinus Tachycardia, L BBB Interpretation Of ECG: ST/T adversion on V5V6, Occasional PVCs Rate From EC (bpm) O2 Sat by Pulse Oximetry: 98 (RA) Pulse Ox Interpretation: Normal Medical Decision Making Medical Decision Making: Assessment: SOB Progress: Discussed with Dr. Hernández, patient will be admitted under his service Diagnosis: CHF, Pneumonia Disposition - Disposition Disposition: HOSPITALIZED Disposition Time: 18:44 Condition: FAIR - Clinical Impression Clinical Impression: CHF (congestive heart failure), Pneumonia - Scribe Statement The provider has reviewed the documentation as recorded by the Hammadibashley Bey All medical record entries made by the Hammadibashley were at my direction and personally dictated by me. I have reviewed the chart and agree that the record accurately reflects my personal performance of the history, physical exam, medical decision making, and the department course for this patient. I have also personally directed, reviewed, and agree with the discharge instructions and disposition.
[2017-08-16 17:23] LABS: BASO % 0.2 % (0.0-2.0); LYMPH # 0.6 K/uL (1.0-4.3); LYMPH % 4.3 % (20.0-40.0); MEAN CELL VOLUME 86.3 fL (81.0-99.0); MEAN CORPUSCULAR HEMOGLOBIN 27.6 pg (27.0-31.0); MEAN PLATELET VOLUME 11.3 fL (7.2-11.7); MONO # 1.2 K/uL (0.0-0.8); MONO % 7.9 % (0.0-10.0); NEUT % 87.6 % (50.0-75.0); NRBC % 0.2 % (0.0-2.0); RBC 3.18 Mil/uL (3.80-5.20); RED CELL DISTRIBUTION WIDTH 16.8 % (11.5-14.5)
[2017-08-16 17:24] LABS: HEMOGLOBIN 8.8 g/dL (11.0-16.0); WHITE BLOOD COUNT 14.8 K/uL (4.8-10.8)
[2017-08-16 17:25] LABS: PLATELET COUNT 208 K/uL (130-400)
[2017-08-16 17:33] LABS: ALB/GLOB RATIO 1.1 (1.0-2.1); ALBUMIN 3.8 g/dL (3.5-5.0); CALCIUM 9.2 mg/dl (8.6-10.4)
[2017-08-16 17:37] LABS: MAGNESIUM 1.9 mg/dL (1.6-2.3)
[2017-08-16 17:45] LABS: TROPONIN I 0.043 ng/mL (0.00-0.120)
[2017-08-16 17:57] LABS: BANDS 4 % (0-2); LYMPHOCYTE 2 % (20-40); MONOCYTE 6 % (0-10); NEUTROPHIL 88 % (50-75); TOTAL CELLS COUNTED 100
[2017-08-16 17:58] LABS: ANISOCYTOSIS SLIGHT; PLATELET ESTIMATE NORMAL (NORMAL)
[2017-08-16 17:59] LABS: OVALOCYTES SLIGHT; POLYCHROMIC SLIGHT; TEARDROP CELLS SLIGHT
[2017-08-16 18:00] LABS: HYPOCHROMIC MODERATE
[2017-08-16] MEDS ORDERED: Albuterol-Ipratrop 3 mg / 0.5 (3 ml) UD ONE ×2 (18:03→20:33)
[2017-08-16] MEDS ORDERED: Azithromycin 500 MG in Sodium Chloride 0.9% 250 ML IVPB STA (18:10)
[2017-08-16] MEDS ORDERED: Labetalol 5 mg/ml Inj 20ML IV STA (20:30)
[2017-08-16] MEDS ORDERED: NITROGLYCERIN 0.6 MG SL PRN (21:02)
--- NOTE | 2017-08-16 22:17 | CP.PCM.CON ---
History of Present Illness - History of Present Illness History of Present Illness: INFECTIOUS DISEASE CONSULT; HPI; 87 y/o female presents to ED with complaints of productive cough with associated sob for 2-3 weeks. Patient states she saw PMD Dr. Hernández 3 days ago and was given Levaquin and Prednisone. Patient reports no improvement which prompted visit to ED today and denies vomiting, diarrhea, chest pain or any other complaints at this time. PATIENT DENIES ANY FEVER OR CHILLS BUT COMPLAINS OF COUGH/AND SHORTNESS OF BREATH WHICH PROMPTED HER TO COME TO THE ER. PATIENT IS UP-TO-DATE ON HER VACCINATION. PATIENT DENIES ANY RECENT TRAVEL OR ANY SICK CONTACTS. ALLERGY; CLOPIDOGREL. PATIENT WAS GIVEN A DOSE OF rOCEPHIN 1 G STAT AND ONE DOSE OF ZITHROMAX IN THE er AFTER APPROPRIATE CULTURES. INFECTIOUS DISEASE CONSULTATION REQUESTED BY DR. HERNÁNDEZ. PATIENT'S PRObnp WAS FOUND TO BE 38,000. PATIENT ALSO HAD LEUKOCYTOSIS OF 14.8 WITH 4% BANDS AND FAILED OUTPATIENT TREATMENT.. PMH: Anemia, Anxiety, Arthritis (BACK AND KNEES AND R SHOULDER), Asthma, Cardia Arrhythmia, CHF, COPD, Diabetes, HTN, Hypercholesterolemia, TIA Surgical History: Appendectomy, Coronary Stent, Endoscopy, Pacemaker (2015) - [employer] Procedures ASSISTANCE WITH RESPIRATORY VENTILATION, 24-96 HRS, CPAP (06/15/17) ASSISTANCE WITH RESPIRATORY VENTILATION, <24 HRS, CPAP (02/06/16) ESOPHAGOGASTRODUODENOSCOPY [EGD] W/CLOSED BIOPSY (12/30/14) LEFT HEART CARDIAC CATH (10/19/13) LT HEART ANGIOCARDIOGRAM (10/19/13) MEASURE OF CARDIAC SAMPL & PRESSURE, L HEART, PERC APPROACH (05/21/15) PACKED CELL TRANSFUSION (12/30/14) PLAIN RADIOGRAPHY OF MULT COR ART USING OTH CONTRAST (05/21/15) TRANSFUSE NONAUT RED BLOOD CELLS IN PERIPH VEIN, PERC (02/06/16) Family History: States: No Known Family Hx - Social History Hx Tobacco Use: No Hx Alcohol Use: No Hx Substance Use: No - Immunization History Hx Tetanus Toxoid Vaccination: No Hx Influenza Vaccination: Yes Hx Pneumococcal Vaccination: Yes Review Of Systems Review of Systems - Constitutional Constitutional: absent: Chills, Fever - EENT Eyes: absent: Change in Vision Nose/Mouth/Throat: absent: Nasal Congestion, Dry Mouth, Sore Throat - Cardiovascular Cardiovascular: Dyspnea on Exertion, Orthopnea. absent: Chest Pain - Respiratory Respiratory: Cough, Dyspnea on Exertion, Chest Congestion, Excessive Mucous Production. absent: Hemoptysis - Gastrointestinal Gastrointestinal: absent: Abdominal Pain, Diarrhea, Nausea, Vomiting - Genitourinary Genitourinary: absent: Dysuria, Urinary Frequency, Freq UTI - Neurological Neurological: Abnormal Gait. absent: Headaches - Hematologic/Lymphatic Hematologic: As Per HPI. absent: Easy Bleeding, Easy Bruising Past Patient History - Infectious Disease Hx of Infectious Diseases: None - Tetanus Immunizations Tetanus Immunization: Unknown - Past Medical History & Family History Past Medical History?: Yes - Past Social History Smoking Status: Never Smoked - CARDIAC Hx Cardia Arrhythmia: Yes Hx Congestive Heart Failure: Yes Hx Hypercholesterolemia: Yes Hx Hypertension: Yes Hx Pacemaker: Yes (2015) - PULMONARY Hx Asthma: Yes Hx Chronic Obstructive Pulmonary Disease (COPD): Yes - NEUROLOGICAL Hx Transient Ischemic Attacks (TIA): Yes - HEENT Hx HEENT Problems: No - RENAL Hx Chronic Kidney Disease: No - ENDOCRINE/METABOLIC Hx Diabetes Mellitus Type 2: Yes - HEMATOLOGICAL/ONCOLOGICAL Hx Anemia: Yes - MUSCULOSKELETAL/RHEUMATOLOGICAL Hx Arthritis: Yes (BACK AND KNEES AND R SHOULDER) - PSYCHIATRIC Hx Anxiety: Yes Hx Substance Use: No - SURGICAL HISTORY Hx Appendectomy: Yes Hx Coronary Stent: Yes - ANESTHESIA Hx Anesthesia: Yes Hx Anesthesia Reactions: No Hx Malignant Hyperthermia: No Meds Allergies/Adverse Reactions: Allergies Allergy/AdvReac Type Severity Reaction Status Date / Time clopidogrel Allergy Mild SWELLING Verified 08/16/17 16:20 - Medications Medications: Current Medications Acetaminophen (Tylenol 325mg Tab) 650 mg PO Q6 PRN PRN Reason: Pain, Mild (1-3) Albuterol/Ipratropium (Duoneb 3 Mg/0.5 Mg (3 Ml) Ud) 3 ml INH RQ4 PRN PRN Reason: Shortness of Breath Aspirin (Ecotrin) 325 mg PO DAILY [facility] Ergocalciferol (Drisdol 50,000 Intl Units Cap) 1 cap PO QWK [facility] Furosemide (Lasix) 40 mg IVP DAILY [facility] Home Med (Nitroglycerin [Nitrostat Sl Tab]) 0.6 mg SL Q5MIN PRN PRN Reason: CHEST PAIN Insulin Glargine (Lantus) 20 unit SC HS [facility] Insulin Human Regular (Novolin R) 0 unit SC [facility] PRN Reason: Protocol Metoprolol Tartrate (Lopressor) 25 mg PO BID [facility] Ranolazine (Ranexa) 500 mg PO BID [facility] Repaglinide (Prandin) 2 mg PO DAILY [facility] Rosuvastatin Calcium (Crestor) 20 mg PO HS [facility] Sacubitril/Valsartan (Entresto 24 Mg-26 Mg) 1 tab PO DAILY [facility] Ticagrelor (Brilinta) 90 mg PO BID [facility] Physical Exam - Constitutional Appears: No Acute Distress - Head Exam Head Exam: NORMAL INSPECTION - Eye Exam Eye Exam: EOMI, PERRL - ENT Exam ENT Exam: Normal Oropharynx - Neck Exam Neck exam: Positive for: Normal Inspection - Respiratory Exam Respiratory Exam: Rales (LEFT MORE THAN RIGHT.), Rhonchi - Cardiovascular Exam Cardiovascular Exam: REGULAR RHYTHM, +S1, +S2 - GI/Abdominal Exam GI & Abdominal Exam: Normal Bowel Sounds, Soft. absent: Tenderness - Exam Exam: NORMAL INSPECTION. absent: Bladder Distension - Extremities Exam Extremities exam: Positive for: pedal pulses present. Negative for: calf tenderness, pedal edema - Neurological Exam Neurological exam: Alert, CN II-XII Intact, Oriented x3, Reflexes Normal - Psychiatric Exam Psychiatric exam: Normal Mood - Skin Skin Exam: Normal Color, Warm Results - Vital Signs Recent Vital Signs: Last Vital Signs Temp 97.8 F 08/16/17 16:19 Pulse 102 H 08/16/17 21:45 Resp 26 H 08/16/17 21:45 BP 125/50 L 08/16/17 21:45 Pulse Ox 98 08/16/17 21:45 - Labs Result Diagrams: 08/16/17 17:10 08/16/17 17:10 Labs: Laboratory Results - last 24 hr 08/16/17 08/16/17 17:10 17:10 WBC 14.8 H D RBC 3.18 L Hgb 8.8 L D Hct 27.5 L MCV 86.3 MCH 27.6 MCHC 32.0 L RDW 16.8 H Plt Count 208 D MPV 11.3 Neut % (Auto) 87.6 H Lymph % (Auto) 4.3 L [place] % (Auto) 7.9 Eos % (Auto) 0.0 Baso % (Auto) 0.2 Neut # 13.0 H Lymph # 0.6 L [place] # 1.2 H Eos # 0.0 Baso # 0.0 Neutrophils % (Manual) 88 H Band Neutrophils % 4 H Lymphocytes % (Manual) 2 L Monocytes % (Manual) 6 Platelet Estimate Normal Polychromasia Slight Hypochromasia (manual) Moderate Anisocytosis (manual) Slight Tear Drop Cells Slight Ovalocytes Slight Sodium 135 Potassium 4.0 Chloride 102 Carbon Dioxide 20 L Anion Gap 18 BUN 27 H Creatinine 1.5 H Est GFR ( Amer) 40 Est GFR (Non-Af Amer) 33 Random Glucose 231 H Calcium 9.2 Magnesium 1.9 Total Bilirubin 0.7 AST 42 H D ALT 27 Alkaline Phosphatase 58 Troponin I 0.0430 NT-Pro-B Natriuret Pep 25087 H Total Protein 7.3 Albumin 3.8 Globulin 3.5 Albumin/Globulin Ratio 1.1 - Imaging and Cardiology Chest x-ray Status: Report reviewed by me (SEE REPORT.) Assessment & Plan (1) Respiratory distress Status: Acute (2) Pneumonia Status: Acute (3) CHF exacerbation Status: Acute (4) Anemia Status: Acute (5) Diabetes mellitus, new onset Status: Acute - Assessment and Plan (Free Text) Plan: pancultures Atypical titers Sedimentation rate CRP MRSA screen Continue IV Rocephin 1 g once daily. 08/16/17. Continue IV Zithromax 500 mg once a day daily. SPUTUM gRAM STAIN AND CULTURES. fOLLOW-UP lftS AND RENAL FUNCTIONS CLOSELY. DIURESE IS PER PMD . WILL FOLLOW AND MAKE RECOMMENDATIONS NEEDED. THANK YOU.
[2017-08-16] MEDS: (Lantus) Insulin Glargine, Recombinant SC SCH (22:32)
[2017-08-16] MEDS: (Novolin R) Insulin Human Regular 100 units/ml vial SC SCH (22:32)
--- NOTE | 2017-08-16 23:58 | CP.PCM.HP ---
History of Present Illness - History of Present Illness History of Present Illness: COMPREHENSIVE HISTORY & PHYSICAL EXAM HPI ADMITTED WITH PNEUMONIA AND SOB PT FOR FEW DAYS HAS BEEN C/O SOB AND SEVERE NITE TIME COUGHING WITH NO IMPROVEMENT WITH OUTPT PO LEVAQUINE EVALUATED IN ER AND HAS CHF WITH MARGE PNEUMONIA PAST HIST. CAD/STENT/CARDIOMYOPATHY AICD T2DM/HTN/COPD PERSONAL HIST: Smoking. N Alcohol. N Allergy N Travel_- . FAMILY HIST : ROS : Constitutional: Negative for weight change, usage of assist device. Eyes: Negative for redness, swelling, itching, discharge, vision changes, blurry vision, double vision, glaucoma, cataracts, Ears: Negative for hearing loss, ringing, , tinnitus, vertigo Nose: Negative for rhinorrhea, stuffiness, sniffing, itching, postnasal drip, discoloration, nasal congestion and epistaxis. Throat: Negative for throat clearing, sore throat, hoarseness, difficulty swallowing and difficulty speaking. Respiratory: Negative for hemoptysis, snoring at night, Cardiovascular: Negative for chest pain, , Edema of legs, leg cramps, angina, claudication, , irregular heartbeat, Neurology: Negative for irritability, muscle weakness, numbness and tingling, seizures, tremors, migraines, slurred speech, syncope, memory loss, mood changes , recurrent headaches Gastrointestinal: Negative for difficulty swallowing, diarrhea, constipation, black stools, rectal bleeding, nausea, flatulence, reflux, poor appetite, changes in bowel habits, abdominal pain Genitourinary: Negative for frequent urination, hematuria, discharge, incontinence, urinary retention, frequent UTI, Psychiatric: Negative for depression, anxiety/panic, suicidal tendencies, Musculoskeletal: Negative for swollen joints, back pain, , neck pain, morning stiffness of joints, . Skin: Negative for rash, ulcers, itching, dry skin and pigmented lesions. P/E: Constitutional: Appears stated age and in no apparent distress. Head: Normocephalic. Ears: External ear canals patent without inflammation. Tympanic membranes intact with normal light reflex and landmark. Eyes: Pupils are central, bilaterally equal, symmetrical and reacts to light with normal movements and no icterus or pallor. Nose: External nares are patent. Mucosa is pink Mouth-Throat: Good general appearance and condition. No post-pharyngeal/oropharyngeal erythema and tonsillar hypertrophy. Good dental hygiene. Neck-Lymphatic: Neck is supple with normal ROM, no thyromegaly, lymph nodes or masses. JVD is normal with no carotid bruit. Lungs: MARGE RONCHI AND RALES Cardiovascular: S1 and S2 are normal with nos, gallops and rub. GI Exam: No hepatomegaly. Abdomen is soft and non-tender. No Organomegaly , masses or hernias are evident and bowel sounds are normal and active. Neurology: Higher function and all cranial nerves intact, with no gross motor or sensory deficit. Superficial and deep reflexes are normal with downwards planters. No cerebellar deficit with normal gait. Musculoskeletal: No tender spots with normal curvature of the spine with no swelling or restricted ROM of the small and large joints. Extremities: Homans sign absent. Intact pulses with no pitting edema, calf tenderness or skin color changes. Skin: No rash, eruptions or abnormal skin pigmentation LAB/RADIOLOGY: ASSESMENT : ACUTE ON CH SYSTOLIC HF WITH DEPRESSED EF ACUTE BRONCHITIS WITH PNEUMONITIS CAD/STENT/AICD T2DM COPD PLAN: SEE ORDERS Present on Admission - Present on Admission Any Indicators Present on Admission: No Past Patient History - Infectious Disease Hx of Infectious Diseases: None - Tetanus Immunizations Tetanus Immunization: Unknown - Past Medical History & Family History Past Medical History?: Yes - Past Social History Smoking Status: Never Smoked - CARDIAC Hx Cardia Arrhythmia: Yes Hx Congestive Heart Failure: Yes Hx Hypercholesterolemia: Yes Hx Hypertension: Yes Hx Pacemaker: Yes (2015) - PULMONARY Hx Asthma: Yes Hx Chronic Obstructive Pulmonary Disease (COPD): Yes - NEUROLOGICAL Hx Transient Ischemic Attacks (TIA): Yes - HEENT Hx HEENT Problems: No - RENAL Hx Chronic Kidney Disease: No - ENDOCRINE/METABOLIC Hx Diabetes Mellitus Type 2: Yes - HEMATOLOGICAL/ONCOLOGICAL Hx Anemia: Yes - INTEGUMENTARY Hx Dermatological Problems: No - MUSCULOSKELETAL/RHEUMATOLOGICAL Hx Arthritis: Yes (BACK AND KNEES AND R SHOULDER) - GASTROINTESTINAL Hx Gastrointestinal Disorders: No - GENITOURINARY/GYNECOLOGICAL Hx Genitourinary Disorders: No - PSYCHIATRIC Hx Anxiety: Yes Hx Substance Use: No - SURGICAL HISTORY Hx Appendectomy: Yes Hx Coronary Stent: Yes - ANESTHESIA Hx Anesthesia: Yes Hx Anesthesia Reactions: No Hx Malignant Hyperthermia: No Meds Allergies/Adverse Reactions: Allergies Allergy/AdvReac Type Severity Reaction Status Date / Time clopidogrel Allergy Mild SWELLING Verified 08/16/17 16:20 Results - Vital Signs Recent Vital Signs: Last Vital Signs Temp 97.7 F 08/16/17 23:04 Pulse 102 H 08/16/17 23:04 Resp 20 08/16/17 23:04 BP 107/73 08/16/17 23:04 Pulse Ox 97 08/16/17 23:04 - Labs Result Diagrams: 08/17/17 07:32 08/17/17 07:32 Labs: Laboratory Results - last 24 hr 08/16/17 08/16/17 08/16/17 17:10 17:10 22:23 WBC 14.8 H D RBC 3.18 L Hgb 8.8 L D Hct 27.5 L MCV 86.3 MCH 27.6 MCHC 32.0 L RDW 16.8 H Plt Count 208 D MPV 11.3 Neut % (Auto) 87.6 H Lymph % (Auto) 4.3 L Glenn % (Auto) 7.9 Eos % (Auto) 0.0 Baso % (Auto) 0.2 Neut # 13.0 H Lymph # 0.6 L Glenn # 1.2 H Eos # 0.0 Baso # 0.0 Neutrophils % (Manual) 88 H Band Neutrophils % 4 H Lymphocytes % (Manual) 2 L Monocytes % (Manual) 6 Platelet Estimate Normal Polychromasia Slight Hypochromasia (manual) Moderate Anisocytosis (manual) Slight Tear Drop Cells Slight Ovalocytes Slight Sodium 135 Potassium 4.0 Chloride 102 Carbon Dioxide 20 L Anion Gap 18 BUN 27 H Creatinine 1.5 H Est GFR ( Amer) 40 Est GFR (Non-Af Amer) 33 POC Glucose (mg/dL) 326 H Random Glucose 231 H Calcium 9.2 Magnesium 1.9 Total Bilirubin 0.7 AST 42 H D ALT 27 Alkaline Phosphatase 58 Troponin I 0.0430 NT-Pro-B Natriuret Pep 45498 H Total Protein 7.3 Albumin 3.8 Globulin 3.5 Albumin/Globulin Ratio 1.1 Influenza Typ A,B (EIA) 08/16/17 23:19 WBC RBC Hgb Hct MCV MCH MCHC RDW Plt Count MPV Neut % (Auto) Lymph % (Auto) Glenn % (Auto) Eos % (Auto) Baso % (Auto) Neut # Lymph # Glenn # Eos # Baso # Neutrophils % (Manual) Band Neutrophils % Lymphocytes % (Manual) Monocytes % (Manual) Platelet Estimate Polychromasia Hypochromasia (manual) Anisocytosis (manual) Tear Drop Cells Ovalocytes Sodium Potassium Chloride Carbon Dioxide Anion Gap BUN Creatinine Est GFR ( Amer) Est GFR (Non-Af Amer) POC Glucose (mg/dL) Random Glucose Calcium Magnesium Total Bilirubin AST ALT Alkaline Phosphatase Troponin I NT-Pro-B Natriuret Pep Total Protein Albumin Globulin Albumin/Globulin Ratio Influenza Typ A,B (EIA) Negative for flu a/b
[2017-08-17 07:38] LABS: BASO % 0.5 % (0.0-2.0); HEMOGLOBIN 8.7 g/dL (11.0-16.0); LYMPH # 0.7 K/uL (1.0-4.3); LYMPH % 7.5 % (20.0-40.0); MEAN CELL VOLUME 85.3 fL (81.0-99.0); MEAN CORPUSCULAR HEMOGLOBIN 28.6 pg (27.0-31.0); MEAN CORPUSCULAR HGB CONC 33.5 g/dL (33.0-37.0); MONO # 0.4 K/uL (0.0-0.8); MONO % 4.6 % (0.0-10.0); NEUT # 7.6 K/uL (1.8-7.0); NEUT % 87.4 % (50.0-75.0); NRBC % 0.1 % (0.0-2.0); PLATELET COUNT 165 K/uL (130-400); RBC 3.04 Mil/uL (3.80-5.20); RED CELL DISTRIBUTION WIDTH 16.7 % (11.5-14.5); WHITE BLOOD COUNT 8.7 K/uL (4.8-10.8)
[2017-08-17 08:03] LABS: ALB/GLOB RATIO 1.2 (1.0-2.1); ALBUMIN 3.6 g/dL (3.5-5.0); BILIRUBIN,DIRECT 0.3 mg/dL (0.0-0.4); CALCIUM 9.1 mg/dl (8.6-10.4)
[2017-08-17] MEDS: (Novolin R) Insulin Human Regular 100 units/ml vial SC SCH ×4 (08:38→21:56)
--- NOTE | 2017-08-17 08:46 | RAD ---
Chest x-ray single frontal view History: Shortness of breath. Comparison: None available. Findings: Moderate venous congestion. Right hilar prominence. Mild blunting of the left costophrenic angle which may represent trace effusion. Cardiomegaly. Left-sided pacemaker. Degenerative changes in the spine and shoulders. Impression: Moderate venous congestion. Right hilar prominence. Mild blunting of the left costophrenic angle which may represent trace effusion. Cardiomegaly. Left-sided pacemaker.
[2017-08-17 09:14] LABS: ANISOCYTOSIS SLIGHT; BANDS 1 % (0-2); HYPOCHROMIC SLIGHT; LYMPHOCYTE 3 % (20-40); MONOCYTE 5 % (0-10); NEUTROPHIL 91 % (50-75); NUCLEATED RED BLOOD CELL 1 % (0-0); PLATELET ESTIMATE NORMAL (NORMAL); POLYCHROMIC SLIGHT; TOTAL CELLS COUNTED 100
[2017-08-17] MEDS: Ranolazine 500 mg Extended Release Tablets PO SCH ×2 (10:59→17:20)
[2017-08-17] MEDS: Aspirin 325 mg EC Tablets PO SCH (11:01)
[2017-08-17] MEDS: Sacubitril/Valsartan 24-26mg Tab PO SCH (11:02)
[2017-08-17] MEDS ORDERED: NITROGLYCERIN 0.6 MG SL PRN (12:05)
--- NOTE | 2017-08-17 14:19 | CP.PCM.PN ---
Subjective - Date & Time of Evaluation Date of Evaluation: 08/17/17 Time of Evaluation: 14:17 - Subjective Subjective: CHIEF COMPLAINTS TODAY : SOB/WHEEZING A/W COUGH ROS. HEENT : N. Resp : No c hemoptysis Cardio : No anginal CP,palpitation GI : No abd.pain, n/v ,diarrhea or GI bleeding . 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 Musculoskel : No joint swelling , Derm : No rash Psych : Normal affect. Ext : No swelling ,calf pain PE. Pt. is alert awake in no distress. V.S As noted in the chart Head ,ear nose,throat and eyes : Normal. Neck : Supple with normal carotids. Lungs: MARGE RONCHI/RALES Heart : S1 & S2 normal with S4. BAUDILIO Abd : Soft non tender with normal bowel sounds. Neuro : Moves all ext. with no localized deficit. Ext : No edema with intact pulses.Non tender calves Derm : No rashes or decubitus ulcer. LABS/RADIOLOGY: ASSESSMENT/PLAN : NEB/IVAB ID EVAL IV LASIX Objective - Vital Signs/Intake and Output Vital Signs (last 24 hours): Temp Pulse Resp BP Pulse Ox 98.3 F 104 H 18 108/50 L 94 L 08/17/17 07:40 08/17/17 07:40 08/17/17 07:40 08/17/17 11:04 08/17/17 07:40 - Medications Medications: Current Medications Acetaminophen (Tylenol 325mg Tab) 650 mg PO Q6 PRN PRN Reason: Pain, Mild (1-3) Albuterol/Ipratropium (Duoneb 3 Mg/0.5 Mg (3 Ml) Ud) 3 ml INH RQ4 PRN PRN Reason: Shortness of Breath Aspirin (Ecotrin) 325 mg PO DAILY [facility] Last Admin: 08/17/17 11:01 Dose: 325 mg Ergocalciferol (Drisdol 50,000 Intl Units Cap) 1 cap PO QWK [facility] Furosemide (Lasix) 40 mg IVP DAILY [facility] Last Admin: 08/17/17 11:00 Dose: 40 mg Ceftriaxone Sodium 1 gm/ (Sodium Chloride) 100 mls @ 100 mls/hr IVPB DAILY [facility] Last Admin: 08/17/17 10:59 Dose: 100 mls/hr Azithromycin 500 mg/ Sodium (Chloride) 250 mls @ 250 mls/hr IVPB Q24H [facility] Insulin Glargine (Lantus) 20 unit SC HS [facility] Last Admin: 08/16/17 22:32 Dose: 20 unit Insulin Human Regular (Novolin R) 0 unit SC [facility] PRN Reason: Protocol Last Admin: 08/17/17 13:05 Dose: 4 unit Metoprolol Tartrate (Lopressor) 25 mg PO BID [facility] Last Admin: 08/17/17 11:04 Dose: 25 mg Pneumococcal Polyvalent Vaccine (Pneumovax 23 Vaccine) 0.5 ml IM .ONCE ONE Stop: 08/19/17 10:01 Pneumococcal Polyvalent Vaccine (Prevnar 13) 0.5 ml IM .ONCE ONE Stop: 08/19/17 10:01 Ranolazine (Ranexa) 500 mg PO BID [facility] Last Admin: 08/17/17 10:59 Dose: 500 mg Repaglinide (Prandin) 2 mg PO DAILY [facility] Last Admin: 08/17/17 11:01 Dose: 2 mg Rosuvastatin Calcium (Crestor) 10 mg PO [facility] Sacubitril/Valsartan (Entresto 24 Mg-26 Mg) 1 tab PO DAILY [facility] Last Admin: 08/17/17 11:02 Dose: 1 tab Ticagrelor (Brilinta) 90 mg PO BID [facility] Last Admin: 08/17/17 11:01 Dose: 90 mg - Labs Labs: 08/17/17 07:32 08/17/17 07:32
[2017-08-17 15:32] LABS: SQUAMOUS EPITHIAL < 1 /hpf (0-5); URINE BILIRUBIN NEGATIVE (NEGATIVE); URINE BLOOD 1+ (NEGATIVE); URINE CLARITY Clear (Clear); URINE COLOR Straw (YELLOW); URINE GLUCOSE (UA) NORMAL (Normal); URINE LEUKOCYTE ESTERASE NEG Leu/uL (Negative); URINE NITRATE NEGATIVE (NEGATIVE); URINE PROTEIN NEGATIVE (NEGATIVE); URINE UROBILINOGEN NORMAL mg/dL (0.2-1.0)
[2017-08-17] MEDS ORDERED: Azithromycin 500 MG in Sodium Chloride 0.9% 250 ML IVPB SCH (16:30)
[2017-08-17] MEDS ORDERED: methylPREDNISolone 50 MG in Sodium Chloride 0.9% 100 ML IVPB SCH (16:45)
[2017-08-17] MEDS: Albuterol-Ipratrop 3 mg / 0.5 (3 ml) UD INH PRN (18:50)
[2017-08-17] MEDS: (Lantus) Insulin Glargine, Recombinant SC SCH (22:00)
--- NOTE | 2017-08-17 22:37 | CP.PCM.PN ---
Subjective - Date & Time of Evaluation Date of Evaluation: 08/17/17 Time of Evaluation: 22:37 - Subjective Subjective: CHIEF COMPLAINTS TODAY : AFEBRILE. c/o cough and shortness of breath productive cough ROS. HEENT : N. Resp : +ve cough, wheezing ,pleuritic CP ,or hemoptysis Cardio : No anginal CP, PND, orthopnea, palpitation GI : No abd.pain, n/v ,diarrhea or GI bleeding . 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 Musculoskel : No joint swelling , Derm : No rash Psych : Normal affect. Ext : No swelling ,calf pain PE. Pt. is alert awake in no distress. V.S As noted in the chart Head ,ear nose,throat and eyes : Normal. Neck : Supple with normal carotids. Lungs: BILATERAL EXPIRATORY WHEEZE./AND RHONCHI. Heart : S1 & S2 normal with S4. No murmur. Abd : Soft non tender with normal bowel sounds. Neuro : Moves all ext. with no localized deficit. Ext : No edema with intact pulses.Non tender calves Derm : No rashes or decubitus ulcer. LABS/RADIOLOGY: wbc 8.7 IMPROVED CREATININE 1.6 bun 28 sEDIMENTATION RATE 26 LFTS- ast 103, alt 68, ALKALINE PHOSPHATASE NORMAL. CHEST X-RAY 08/16/17 MODERATE VENOUS CONGESTION WITH RIGHT HILAR PROMINENCE, trace left pleural effusion. Left pacemaker in place. ASSESSMENT/PLAN : RESPIRATORY INSUFFICIENCY PNEUMONIA CHF. TRANSAMINITIS ?DRUGS. ANEMIA. DM PLAN. CONTINUE iv ROCEPHIN 1 G ONCE A DAY DAILY decreased ZITHROMAX 250 MG iv PIGGYBACK ONCE A DAY DAILY. DC CRESTOR NEBULIZER THERAPY. sputum Gram stain and culture. .MONITOR lftS. MONITOR RENAL FUNCTIONS CLOSELY pATIENT ON lASIX 40 MG ONCE A DAY DAILY. Objective - Vital Signs/Intake and Output Vital Signs (last 24 hours): Temp Pulse Resp BP Pulse Ox 98.1 F 86 20 98/50 L 98 08/17/17 15:48 08/17/17 18:00 08/17/17 15:48 08/17/17 17:25 08/17/17 16:53 Intake and Output: 08/17/17 08/18/17 18:59 06:59 Intake Total 590 Balance 590 - Medications Medications: Current Medications Acetaminophen (Tylenol 325mg Tab) 650 mg PO Q6 PRN PRN Reason: Pain, Mild (1-3) Albuterol/Ipratropium (Duoneb 3 Mg/0.5 Mg (3 Ml) Ud) 3 ml INH RQ4 PRN PRN Reason: Shortness of Breath Last Admin: 08/17/17 18:50 Dose: 3 ml Aspirin (Ecotrin) 325 mg PO DAILY [facility] Last Admin: 08/17/17 11:01 Dose: 325 mg Ergocalciferol (Drisdol 50,000 Intl Units Cap) 1 cap PO QWK [facility] Furosemide (Lasix) 40 mg IVP DAILY [facility] Last Admin: 08/17/17 11:00 Dose: 40 mg Ceftriaxone Sodium 1 gm/ (Sodium Chloride) 100 mls @ 100 mls/hr IVPB DAILY [facility] Last Admin: 08/17/17 10:59 Dose: 100 mls/hr Azithromycin 500 mg/ Sodium (Chloride) 250 mls @ 250 mls/hr IVPB Q24H [facility] Last Admin: 08/17/17 17:20 Dose: 250 mls/hr Insulin Glargine (Lantus) 20 unit SC [facility] Last Admin: 08/17/17 22:00 Dose: 20 unit Insulin Human Regular (Novolin R) 0 unit SC ACHS [facility] PRN Reason: Protocol Last Admin: 08/17/17 21:56 Dose: Not Given Methylprednisolone (Solu-Medrol) 50 mg IVP Q8H [facility] Last Admin: 08/17/17 17:21 Dose: 50 mg Metoprolol Tartrate (Lopressor) 25 mg PO BID [facility] Last Admin: 08/17/17 17:25 Dose: Not Given Pneumococcal Polyvalent Vaccine (Pneumovax 23 Vaccine) 0.5 ml IM .ONCE ONE Stop: 08/19/17 10:01 Pneumococcal Polyvalent Vaccine (Prevnar 13) 0.5 ml IM .ONCE ONE Stop: 08/19/17 10:01 Ranolazine (Ranexa) 500 mg PO BID [facility] Last Admin: 08/17/17 17:20 Dose: 500 mg Repaglinide (Prandin) 2 mg PO DAILY [facility] Last Admin: 08/17/17 11:01 Dose: 2 mg Rosuvastatin Calcium (Crestor) 10 mg PO HS [facility] Last Admin: 08/17/17 22:00 Dose: 10 mg Sacubitril/Valsartan (Entresto 24 Mg-26 Mg) 1 tab PO DAILY [facility] Last Admin: 08/17/17 11:02 Dose: 1 tab Ticagrelor (Brilinta) 90 mg PO BID [facility] Last Admin: 08/17/17 17:21 Dose: 90 mg - Labs Labs: 08/17/17 07:32 08/17/17 07:32 Assessment and Plan (1) Respiratory distress Status: Acute (2) Pneumonia Status: Acute (3) CHF exacerbation Status: Acute (4) Anemia Status: Acute (5) Diabetes mellitus, new onset Status: Acute
[2017-08-18] MEDS: Albuterol-Ipratrop 3 mg / 0.5 (3 ml) UD INH PRN (07:15)
[2017-08-18 08:47] LABS: BASO % 0.1 % (0.0-2.0); EOS % 0.1 % (0.0-4.0); HEMOGLOBIN 8.1 g/dL (11.0-16.0); LYMPH # 0.2 K/uL (1.0-4.3); LYMPH % 2.5 % (20.0-40.0); MEAN CELL VOLUME 85.1 fL (81.0-99.0); MEAN CORPUSCULAR HEMOGLOBIN 28.4 pg (27.0-31.0); MEAN CORPUSCULAR HGB CONC 33.4 g/dL (33.0-37.0); MEAN PLATELET VOLUME 11.2 fL (7.2-11.7); MONO # 0.1 K/uL (0.0-0.8); MONO % 1.7 % (0.0-10.0); NEUT # 7.9 K/uL (1.8-7.0); NEUT % 95.6 % (50.0-75.0); NRBC % 0.1 % (0.0-2.0); RBC 2.85 Mil/uL (3.80-5.20); RED CELL DISTRIBUTION WIDTH 16.3 % (11.5-14.5); WHITE BLOOD COUNT 8.3 K/uL (4.8-10.8)
[2017-08-18 08:52] LABS: PLATELET COUNT 129 K/uL (130-400)
[2017-08-18] MEDS: (Novolin R) Insulin Human Regular 100 units/ml vial SC SCH ×4 (08:55→21:18)
[2017-08-18 09:00] LABS: ALB/GLOB RATIO 1.1 (1.0-2.1); ALBUMIN 3.2 g/dL (3.5-5.0); CALCIUM 8.6 mg/dl (8.6-10.4)
[2017-08-18] MEDS: Ranolazine 500 mg Extended Release Tablets PO SCH ×2 (09:19→18:21)
[2017-08-18] MEDS: Aspirin 325 mg EC Tablets PO SCH (09:20)
[2017-08-18] MEDS: Sacubitril/Valsartan 24-26mg Tab PO SCH (09:21)
[2017-08-18 12:03] LABS: ANISOCYTOSIS SLIGHT; BANDS 2 % (0-2); LYMPHOCYTE 4 % (20-40); NEUTROPHIL 94 % (50-75); PLATELET ESTIMATE SLIGHTLY DECREASED (NORMAL); TOTAL CELLS COUNTED 100
--- NOTE | 2017-08-18 13:46 | CP.PCM.PN ---
Subjective - Date & Time of Evaluation Date of Evaluation: 08/18/17 Time of Evaluation: 13:46 - Subjective Subjective: CHIEF COMPLAINTS TODAY : AFEBRILE. c/o cough and shortness of breath productive cough. ROS. HEENT : N. Resp : +ve cough, wheezing ,pleuritic CP ,or hemoptysis Cardio : No anginal CP, PND, orthopnea, palpitation GI : No abd.pain, n/v ,diarrhea or GI bleeding . 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 Musculoskel : No joint swelling , Derm : No rash Psych : Normal affect. Ext : No swelling ,calf pain PE. Pt. is alert awake in no distress. V.S As noted in the chart Head ,ear nose,throat and eyes : Normal. Neck : Supple with normal carotids. Lungs: BILATERAL EXPIRATORY WHEEZE./AND RHONCHI. Heart : S1 & S2 normal with S4. No murmur. Abd : Soft non tender with normal bowel sounds. Neuro : Moves all ext. with no localized deficit. Ext : No edema with intact pulses.Non tender calves Derm : No rashes or decubitus ulcer. LABS/RADIOLOGY: wbc 8.3 CREATININE 1.6 bun 35 sEDIMENTATION RATE 26 LFTS- ast 73, alt 70, ALKALINE PHOSPHATASE NORMAL. CHEST X-RAY 08/16/17 MODERATE VENOUS CONGESTION WITH RIGHT HILAR PROMINENCE, trace left pleural effusion. Left pacemaker in place SPUTUM NORMAL DANO. ASSESSMENT/PLAN : RESPIRATORY INSUFFICIENCY PNEUMONIA CHF. TRANSAMINITIS ?DRUGS. ANEMIA. DM PLAN. IV STEROIDS ADDED BY pmd NOTED. CONTINUE iv ROCEPHIN 1 G ONCE A DAY DAILY decreased ZITHROMAX 250 MG iv PIGGYBACK ONCE A DAY DAILY. DC CRESTOR NEBULIZER THERAPY. sputum Gram stain and culture. .MONITOR lftS. MONITOR RENAL FUNCTIONS CLOSELY pATIENT ON lASIX 40 MG ONCE A DAY DAILY. Objective - Vital Signs/Intake and Output Vital Signs (last 24 hours): Temp Pulse Resp BP Pulse Ox 98.3 F 86 20 104/68 100 08/18/17 07:40 08/18/17 08:19 08/18/17 07:40 08/18/17 09:21 08/18/17 07:40 Intake and Output: 08/18/17 08/18/17 06:59 18:59 Intake Total 850 Balance 850 - Medications Medications: Current Medications Acetaminophen (Tylenol 325mg Tab) 650 mg PO Q6 PRN PRN Reason: Pain, Mild (1-3) Albuterol/Ipratropium (Duoneb 3 Mg/0.5 Mg (3 Ml) Ud) 3 ml INH RQ4 PRN PRN Reason: Shortness of Breath Last Admin: 08/18/17 07:15 Dose: 3 ml Aspirin (Ecotrin) 325 mg PO DAILY [facility] Last Admin: 08/18/17 09:20 Dose: 325 mg Ergocalciferol (Drisdol 50,000 Intl Units Cap) 1 cap PO QWK [facility] Furosemide (Lasix) 40 mg IVP DAILY [facility] Last Admin: 08/18/17 09:19 Dose: 40 mg Ceftriaxone Sodium 1 gm/ (Sodium Chloride) 100 mls @ 100 mls/hr IVPB DAILY [facility] Last Admin: 08/18/17 09:22 Dose: 100 mls/hr Azithromycin 250 mg/ Sodium (Chloride) 250 mls @ 250 mls/hr IVPB Q24H [facility] Insulin Glargine (Lantus) 20 unit SC HS [facility] Last Admin: 08/17/17 22:00 Dose: 20 unit Insulin Human Regular (Novolin R) 0 unit SC ACHS [facility] PRN Reason: Protocol Last Admin: 08/18/17 13:15 Dose: 4 unit Methylprednisolone (Solu-Medrol) 50 mg IVP Q8H [facility] Last Admin: 08/18/17 09:20 Dose: 50 mg Metoprolol Tartrate (Lopressor) 25 mg PO BID [facility] Last Admin: 08/18/17 09:21 Dose: 25 mg Pneumococcal Polyvalent Vaccine (Pneumovax 23 Vaccine) 0.5 ml IM .ONCE ONE Stop: 08/19/17 10:01 Pneumococcal Polyvalent Vaccine (Prevnar 13) 0.5 ml IM .ONCE ONE Stop: 08/19/17 10:01 Ranolazine (Ranexa) 500 mg PO BID [facility] Last Admin: 08/18/17 09:19 Dose: 500 mg Repaglinide (Prandin) 2 mg PO DAILY [facility] Last Admin: 08/18/17 09:20 Dose: 2 mg Rosuvastatin Calcium (Crestor) 10 mg PO HS [facility] Last Admin: 08/17/17 22:00 Dose: 10 mg Sacubitril/Valsartan (Entresto 24 Mg-26 Mg) 1 tab PO DAILY [facility] Last Admin: 08/18/17 09:21 Dose: 1 tab Ticagrelor (Brilinta) 90 mg PO BID [facility] Last Admin: 08/18/17 09:19 Dose: 90 mg - Labs Labs: 08/18/17 08:13 08/18/17 08:13 Assessment and Plan (1) Respiratory distress Status: Acute (2) Pneumonia Status: Acute (3) CHF exacerbation Status: Acute (4) Anemia Status: Acute (5) Diabetes mellitus, new onset Status: Acute
--- NOTE | 2017-08-18 14:20 | CP.PCM.PN ---
Subjective - Date & Time of Evaluation Date of Evaluation: 08/18/17 Time of Evaluation: 14:19 - Subjective Subjective: CHIEF COMPLAINTS TODAY : SOB/WHEEZING A/W COUGH ROS. HEENT : N. Resp : No c hemoptysis Cardio : No anginal CP,palpitation GI : No abd.pain, n/v ,diarrhea or GI bleeding . 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 Musculoskel : No joint swelling , Derm : No rash Psych : Normal affect. Ext : No swelling ,calf pain PE. Pt. is alert awake in no distress. V.S As noted in the chart Head ,ear nose,throat and eyes : Normal. Neck : Supple with normal carotids. Lungs: MARGE RONCHI/RALES Heart : S1 & S2 normal with S4. BAUDILIO Abd : Soft non tender with normal bowel sounds. Neuro : Moves all ext. with no localized deficit. Ext : No edema with intact pulses.Non tender calves Derm : No rashes or decubitus ulcer. LABS/RADIOLOGY: SEPTIC W/P NEG SO FAR ASSESSMENT/PLAN : NEB/IVAB ID EVAL NOTED IV LASIX CXR ADD SOLUMEDROL Objective - Vital Signs/Intake and Output Vital Signs (last 24 hours): Temp Pulse Resp BP Pulse Ox 98.3 F 86 20 104/68 100 08/18/17 07:40 08/18/17 08:19 08/18/17 07:40 08/18/17 09:21 08/18/17 07:40 Intake and Output: 08/18/17 08/18/17 11:59 23:59 Intake Total 300 Balance 300 - Medications Medications: Current Medications Acetaminophen (Tylenol 325mg Tab) 650 mg PO Q6 PRN PRN Reason: Pain, Mild (1-3) Albuterol/Ipratropium (Duoneb 3 Mg/0.5 Mg (3 Ml) Ud) 3 ml INH RQ4 PRN PRN Reason: Shortness of Breath Last Admin: 08/18/17 07:15 Dose: 3 ml Aspirin (Ecotrin) 325 mg PO DAILY [facility] Last Admin: 08/18/17 09:20 Dose: 325 mg Ergocalciferol (Drisdol 50,000 Intl Units Cap) 1 cap PO QWK [facility] Furosemide (Lasix) 40 mg IVP DAILY [facility] Last Admin: 08/18/17 09:19 Dose: 40 mg Ceftriaxone Sodium 1 gm/ (Sodium Chloride) 100 mls @ 100 mls/hr IVPB DAILY [facility] Last Admin: 08/18/17 09:22 Dose: 100 mls/hr Azithromycin 250 mg/ Sodium (Chloride) 250 mls @ 250 mls/hr IVPB Q24H [facility] Insulin Glargine (Lantus) 20 unit SC [facility] Last Admin: 08/17/17 22:00 Dose: 20 unit Insulin Human Regular (Novolin R) 0 unit SC [facility] PRN Reason: Protocol Last Admin: 08/18/17 13:15 Dose: 4 unit Methylprednisolone (Solu-Medrol) 50 mg IVP Q8H [facility] Last Admin: 08/18/17 09:20 Dose: 50 mg Metoprolol Tartrate (Lopressor) 25 mg PO BID [facility] Last Admin: 08/18/17 09:21 Dose: 25 mg Pneumococcal Polyvalent Vaccine (Pneumovax 23 Vaccine) 0.5 ml IM .ONCE ONE Stop: 08/19/17 10:01 Pneumococcal Polyvalent Vaccine (Prevnar 13) 0.5 ml IM .ONCE ONE Stop: 08/19/17 10:01 Ranolazine (Ranexa) 500 mg PO BID [facility] Last Admin: 08/18/17 09:19 Dose: 500 mg Repaglinide (Prandin) 2 mg PO DAILY [facility] Last Admin: 08/18/17 09:20 Dose: 2 mg Rosuvastatin Calcium (Crestor) 10 mg PO HS [facility] Last Admin: 08/17/17 22:00 Dose: 10 mg Sacubitril/Valsartan (Entresto 24 Mg-26 Mg) 1 tab PO DAILY [facility] Last Admin: 08/18/17 09:21 Dose: 1 tab Ticagrelor (Brilinta) 90 mg PO BID [facility] Last Admin: 08/18/17 09:19 Dose: 90 mg - Labs Labs: 08/18/17 08:13 08/18/17 08:13
--- NOTE | 2017-08-18 14:47 | RAD ---
PROCEDURE: CHEST RADIOGRAPH, 1 VIEW HISTORY: CHF COMPARISON: Chest radiograph dated 08/16/2017. FINDINGS: LUNGS: Stable chronic prominence of the bilateral interstitial markings. No focal consolidation. PLEURA: No pneumothorax or pleural fluid seen. CARDIOVASCULAR: Left subclavian access AICD/ pacemaker redemonstrated. Atherosclerotic aortic calcifications. Cardiomediastinal silhouette stably enlarged. OSSEOUS STRUCTURES: Unchanged. VISUALIZED UPPER ABDOMEN: Normal. OTHER FINDINGS: None. IMPRESSION: Stable chronic prominence of the bilateral interstitial markings. No focal consolidation or pleural effusion.
[2017-08-18] MEDS: Azithromycin 250 MG in Sodium Chloride 0.9% 250 ML IVPB SCH (17:45)
[2017-08-18] MEDS: (Lantus) Insulin Glargine, Recombinant SC SCH (21:43)
[2017-08-19] MEDS: Albuterol-Ipratrop 3 mg / 0.5 (3 ml) UD INH PRN ×2 (07:00→13:09)
[2017-08-19] MEDS: (Novolin R) Insulin Human Regular 100 units/ml vial SC SCH ×4 (07:43→22:05)
--- NOTE | 2017-08-19 08:46 | CARD ---
APPROVED REPORT EKG Measurement Heart [id number] CT [id number] <Conclusion> Sinus tachycardia with premature supraventricular complexes Left bundle branch block Abnormal ECG
[2017-08-19] MEDS: Ranolazine 500 mg Extended Release Tablets PO SCH ×2 (10:00→17:54)
[2017-08-19] MEDS ORDERED: Pneumoc 13 Val Conjugate Vaccine Inj IM ONE (10:00)
[2017-08-19] MEDS ORDERED: Pneumococcal 23-Valent Vaccine IM ONE (10:00)
[2017-08-19] MEDS: Aspirin 325 mg EC Tablets PO SCH (10:01)
[2017-08-19] MEDS: Sacubitril/Valsartan 24-26mg Tab PO SCH (10:02)
[2017-08-19] MEDS: Nystatin 100,000 Units/ml Oral Susp 5 ml UD PO SCH ×3 (13:38→23:01)
--- NOTE | 2017-08-19 13:59 | CP.PCM.PN ---
Subjective - Date & Time of Evaluation Date of Evaluation: 08/19/17 Time of Evaluation: 13:58 - Subjective Subjective: CHIEF COMPLAINTS TODAY : SOB/WHEEZING A/W COUGH IMPROVING ROS. HEENT : N. Resp : No c hemoptysis Cardio : No anginal CP,palpitation GI : No abd.pain, n/v ,diarrhea or GI bleeding . 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 Musculoskel : No joint swelling , Derm : No rash Psych : Normal affect. Ext : No swelling ,calf pain PE. Pt. is alert awake in no distress. V.S As noted in the chart Head ,ear nose,throat and eyes : Normal. Neck : Supple with normal carotids. Lungs: MARGE RONCHI Heart : S1 & S2 normal with S4. BAUDILIO Abd : Soft non tender with normal bowel sounds. Neuro : Moves all ext. with no localized deficit. Ext : No edema with intact pulses.Non tender calves Derm : No rashes or decubitus ulcer. LABS/RADIOLOGY: SEPTIC W/P NEG SO FAR CXR CH. CHANGES ASSESSMENT/PLAN : NEB/IVAB TAPER STEROIDS Objective - Vital Signs/Intake and Output Vital Signs (last 24 hours): Temp Pulse Resp BP Pulse Ox 98.0 F 84 20 92/52 L 98 08/19/17 07:40 08/19/17 07:40 08/19/17 07:40 08/19/17 10:01 08/19/17 07:40 - Medications Medications: Current Medications Acetaminophen (Tylenol 325mg Tab) 650 mg PO Q6 PRN PRN Reason: Pain, Mild (1-3) Albuterol/Ipratropium (Duoneb 3 Mg/0.5 Mg (3 Ml) Ud) 3 ml INH RQ4 PRN PRN Reason: Shortness of Breath Last Admin: 08/19/17 13:09 Dose: 3 ml Aspirin (Ecotrin) 325 mg PO DAILY [facility] Last Admin: 08/19/17 10:01 Dose: 325 mg Ergocalciferol (Drisdol 50,000 Intl Units Cap) 1 cap PO QWK [facility] Furosemide (Lasix) 40 mg IVP DAILY [facility] Last Admin: 08/19/17 09:59 Dose: Not Given Ceftriaxone Sodium 1 gm/ (Sodium Chloride) 100 mls @ 100 mls/hr IVPB DAILY [facility] Last Admin: 08/19/17 09:58 Dose: 100 mls/hr Azithromycin 250 mg/ Sodium (Chloride) 250 mls @ 250 mls/hr IVPB Q24H [facility] Last Admin: 08/18/17 17:45 Dose: 250 mls/hr Insulin Glargine (Lantus) 20 unit SC [facility] Last Admin: 08/18/17 21:43 Dose: 20 unit Insulin Human Regular (Novolin R) 0 unit SC [facility] PRN Reason: Protocol Last Admin: 08/19/17 07:43 Dose: Not Given Methylprednisolone (Solu-Medrol) 50 mg IVP Q8H [facility] Last Admin: 08/19/17 09:59 Dose: 50 mg Metoprolol Tartrate (Lopressor) 25 mg PO BID [facility] Last Admin: 08/19/17 10:01 Dose: Not Given Nystatin (Nystatin Oral Susp) 5 ml PO QID [facility] Last Admin: 08/19/17 13:38 Dose: 5 ml Ranolazine (Ranexa) 500 mg PO BID [facility] Last Admin: 08/19/17 10:00 Dose: 500 mg Repaglinide (Prandin) 2 mg PO DAILY [facility] Last Admin: 08/19/17 10:01 Dose: 2 mg Rosuvastatin Calcium (Crestor) 10 mg PO [facility] Last Admin: 08/18/17 21:43 Dose: 10 mg Sacubitril/Valsartan (Entresto 24 Mg-26 Mg) 1 tab PO DAILY [facility] Last Admin: 08/19/17 10:02 Dose: 1 tab Ticagrelor (Brilinta) 90 mg PO BID [facility] Last Admin: 08/19/17 10:00 Dose: 90 mg - Labs Labs: 08/18/17 08:13 08/18/17 08:13
[2017-08-19] MEDS: MethylPREDNISolone 40 mg Vial IVP SCH (14:41)
[2017-08-19] MEDS: Azithromycin 250 MG in Sodium Chloride 0.9% 250 ML IVPB SCH (17:53)
[2017-08-19] MEDS: (Lantus) Insulin Glargine, Recombinant SC SCH (22:04)
--- NOTE | 2017-08-19 22:27 | CP.PCM.PN ---
Subjective - Date & Time of Evaluation Date of Evaluation: 08/19/17 Time of Evaluation: 22:27 - Subjective Subjective: CHIEF COMPLAINTS TODAY : AFEBRILE. c/o cough and shortness of breath productive cough. INCREASED WHEEZING TODAY. ROS. HEENT : N. Resp : +ve cough, wheezing ,pleuritic CP ,or hemoptysis Cardio : No anginal CP, PND, orthopnea, palpitation GI : No abd.pain, n/v ,diarrhea or GI bleeding . 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 Musculoskel : No joint swelling , Derm : No rash Psych : Normal affect. Ext : No swelling ,calf pain PE. Pt. is alert awake in no distress. V.S As noted in the chart Head ,ear nose,throat and eyes : Normal. Neck : Supple with normal carotids. Lungs: BILATERAL EXPIRATORY WHEEZE./AND RHONCHI. Heart : S1 & S2 normal with S4. No murmur. Abd : Soft non tender with normal bowel sounds. Neuro : Moves all ext. with no localized deficit. Ext : No edema with intact pulses.Non tender calves Derm : No rashes or decubitus ulcer. LABS/RADIOLOGY: wbc 8.3 CREATININE 1.6 bun 35 sEDIMENTATION RATE 26 LFTS- ast 73, alt 70, ALKALINE PHOSPHATASE NORMAL. CHEST X-RAY 08/18/17 NO FOCAL CONSOLIDATION OR EFFUSION. cHRONIC INTERSTITIAL MARKINGS. CHEST X-RAY 08/16/17 MODERATE VENOUS CONGESTION WITH RIGHT HILAR PROMINENCE, trace left pleural effusion. 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 TRANSAMINITIS ?DRUGS. ANEMIA. DM PLAN. IV STEROIDS ADDED BY pmd NOTED. CONTINUE iv ROCEPHIN 1 G ONCE A DAY DAILY decreased ZITHROMAX 250 MG iv PIGGYBACK ONCE A DAY DAILY. nystatin 5 mL by mouth swish and swallow twice a day for 5 days NEBULIZER THERAPY. . .MONITOR lftS. MONITOR RENAL FUNCTIONS CLOSELY PATIENT ON lASIX 40 MG ONCE A DAY DAILY. Objective - Vital Signs/Intake and Output Vital Signs (last 24 hours): Temp Pulse Resp BP Pulse Ox 98.2 F 85 20 104/55 L 99 08/19/17 15:00 08/19/17 15:00 08/19/17 15:00 08/19/17 15:00 08/19/17 15:00 Intake and Output: 02/01/18 02/02/18 18:59 06:59 Intake Total 630 Balance 630 - Medications Medications: Current Medications Acetaminophen (Tylenol 325mg Tab) 650 mg PO Q6 PRN PRN Reason: Pain, Mild (1-3) Albuterol/Ipratropium (Duoneb 3 Mg/0.5 Mg (3 Ml) Ud) 3 ml INH RQ4 PRN PRN Reason: Shortness of Breath Last Admin: 08/19/17 13:09 Dose: 3 ml Aspirin (Ecotrin) 325 mg PO DAILY [facility] Last Admin: 08/19/17 10:01 Dose: 325 mg Ergocalciferol (Drisdol 50,000 Intl Units Cap) 1 cap PO QWK [facility] Furosemide (Lasix) 40 mg IVP DAILY [facility] Last Admin: 08/19/17 09:59 Dose: Not Given Ceftriaxone Sodium 1 gm/ (Sodium Chloride) 100 mls @ 100 mls/hr IVPB DAILY [facility] Last Admin: 08/19/17 09:58 Dose: 100 mls/hr Azithromycin 250 mg/ Sodium (Chloride) 250 mls @ 250 mls/hr IVPB Q24H [facility] Last Admin: 08/19/17 17:53 Dose: 250 mls/hr Insulin Glargine (Lantus) 20 unit SC HS [facility] Last Admin: 08/19/17 22:04 Dose: 20 unit Insulin Human Regular (Novolin R) 0 unit SC ACHS [facility] PRN Reason: Protocol Last Admin: 08/19/17 22:05 Dose: 2 unit Methylprednisolone (Solu-Medrol) 20 mg IVP Q12H [facility] Last Admin: 08/19/17 14:41 Dose: 20 mg Metoprolol Tartrate (Lopressor) 25 mg PO BID [facility] Last Admin: 08/19/17 18:51 Dose: Not Given Nystatin (Nystatin Oral Susp) 5 ml PO QID [facility] Last Admin: 08/19/17 17:54 Dose: 5 ml Ranolazine (Ranexa) 500 mg PO BID [facility] Last Admin: 08/19/17 17:54 Dose: 500 mg Repaglinide (Prandin) 2 mg PO DAILY [facility] Last Admin: 08/19/17 10:01 Dose: 2 mg Rosuvastatin Calcium (Crestor) 10 mg PO HS [facility] Last Admin: 08/19/17 22:05 Dose: 10 mg Sacubitril/Valsartan (Entresto 24 Mg-26 Mg) 1 tab PO DAILY [facility] Last Admin: 08/19/17 10:02 Dose: 1 tab Ticagrelor (Brilinta) 90 mg PO BID [facility] Last Admin: 08/19/17 17:54 Dose: 90 mg - Labs Labs: 08/18/17 08:13 08/18/17 08:13 Assessment and Plan (1) Respiratory distress Status: Acute (2) Pneumonia Status: Acute (3) CHF exacerbation Status: Acute (4) Anemia Status: Acute (5) Diabetes mellitus, new onset Status: Acute
[2017-08-20] MEDS: MethylPREDNISolone 40 mg Vial IVP SCH ×3 (02:21→17:49)
[2017-08-20 08:17] LABS: ALBUMIN 2.8 g/dL (3.5-5.0); BILIRUBIN,DIRECT 0.2 mg/dL (0.0-0.4); CALCIUM 8.5 mg/dl (8.6-10.4); MAGNESIUM 2.1 mg/dL (1.6-2.3)
[2017-08-20] MEDS: (Novolin R) Insulin Human Regular 100 units/ml vial SC SCH ×4 (08:53→21:44)
[2017-08-20] MEDS: Aspirin 325 mg EC Tablets PO SCH (09:38)
[2017-08-20] MEDS: Ranolazine 500 mg Extended Release Tablets PO SCH ×2 (09:38→17:50)
[2017-08-20] MEDS: Nystatin 100,000 Units/ml Oral Susp 5 ml UD PO SCH ×4 (09:38→21:44)
[2017-08-20] MEDS: Sacubitril/Valsartan 24-26mg Tab PO SCH (09:40)
[2017-08-20] MEDS: Albuterol-Ipratrop 3 mg / 0.5 (3 ml) UD INH PRN (13:30)
[2017-08-20] MEDS: Azithromycin 250 MG in Sodium Chloride 0.9% 250 ML IVPB SCH (17:49)
[2017-08-20] MEDS: (Lantus) Insulin Glargine, Recombinant SC SCH (21:44)
--- NOTE | 2017-08-20 22:35 | CP.PCM.PN ---
Subjective - Date & Time of Evaluation Date of Evaluation: 08/20/17 Time of Evaluation: 22:35 - Subjective Subjective: CHIEF COMPLAINTS TODAY : AFEBRILE. c/o cough and shortness of breath productive cough. INCREASED WHEEZING TODAY. ROS. HEENT : N. Resp : +ve cough, wheezing ,pleuritic CP ,or hemoptysis Cardio : No anginal CP, PND, orthopnea, palpitation GI : No abd.pain, n/v ,diarrhea or GI bleeding . 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 Musculoskel : No joint swelling , Derm : No rash Psych : Normal affect. Ext : No swelling ,calf pain PE. Pt. is alert awake in no distress. V.S As noted in the chart Head ,ear nose,throat and eyes : Normal. Neck : Supple with normal carotids. Lungs: BILATERAL EXPIRATORY WHEEZE./AND RHONCHI. Heart : S1 & S2 normal with S4. No murmur. Abd : Soft non tender with normal bowel sounds. Neuro : Moves all ext. with no localized deficit. Ext : No edema with intact pulses.Non tender calves Derm : No rashes or decubitus ulcer. LABS/RADIOLOGY: CREATININE 1.4/bun 4 lftS OKAY CHEST X-RAY 08/18/17 NO FOCAL CONSOLIDATION OR EFFUSION. CHRONIC INTERSTITIAL MARKINGS. CHEST X-RAY 08/16/17 MODERATE VENOUS CONGESTION WITH RIGHT HILAR PROMINENCE, trace left pleural effusion. 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 TRANSAMINITIS ?DRUGS. ANEMIA. DM PLAN. IV STEROIDS INCREASED TO 40 MG EVERY 12 HOURLY BY pmd NOTED. CONTINUE iv ROCEPHIN 1 G ONCE A DAY DAILY decreased ZITHROMAX 250 MG iv PIGGYBACK ONCE A DAY DAILY. nystatin 5 mL by mouth swish and swallow twice a day for 5 days NEBULIZER THERAPY. . .MONITOR lftS. MONITOR RENAL FUNCTIONS CLOSELY PATIENT ON lASIX 40 MG ONCE A DAY DAILY. Objective - Vital Signs/Intake and Output Vital Signs (last 24 hours): Temp Pulse Resp BP Pulse Ox 97.5 F L 84 20 95/58 L 99 08/20/17 16:39 08/20/17 16:39 08/20/17 16:39 08/20/17 17:28 08/20/17 16:39 Intake and Output: 08/20/17 08/21/17 18:59 06:59 Intake Total 600 Balance 600 - Medications Medications: Current Medications Acetaminophen (Tylenol 325mg Tab) 650 mg PO Q6 PRN PRN Reason: Pain, Mild (1-3) Albuterol/Ipratropium (Duoneb 3 Mg/0.5 Mg (3 Ml) Ud) 3 ml INH RQ4 PRN PRN Reason: Shortness of Breath Last Admin: 08/20/17 13:30 Dose: 3 ml Aspirin (Ecotrin) 325 mg PO DAILY [facility] Last Admin: 08/20/17 09:38 Dose: 325 mg Ergocalciferol (Drisdol 50,000 Intl Units Cap) 1 cap PO QWK [facility] Furosemide (Lasix) 40 mg IVP DAILY [facility] Last Admin: 08/20/17 09:38 Dose: 40 mg Ceftriaxone Sodium 1 gm/ (Sodium Chloride) 100 mls @ 100 mls/hr IVPB DAILY [facility] Last Admin: 08/20/17 09:38 Dose: 100 mls/hr Azithromycin 250 mg/ Sodium (Chloride) 250 mls @ 250 mls/hr IVPB Q24H [facility] Last Admin: 08/20/17 17:49 Dose: 250 mls/hr Insulin Glargine (Lantus) 20 unit SC HS [facility] Last Admin: 08/20/17 21:44 Dose: 20 unit Insulin Human Regular (Novolin R) 0 unit SC ACHS [facility] PRN Reason: Protocol Last Admin: 08/20/17 21:44 Dose: 3 unit Methylprednisolone (Solu-Medrol) 40 mg IVP Q12H [facility] Last Admin: 08/20/17 17:49 Dose: 40 mg Metoprolol Tartrate (Lopressor) 25 mg PO BID [facility] Last Admin: 08/20/17 17:28 Dose: Not Given Nystatin (Nystatin Oral Susp) 5 ml PO QID [facility] Last Admin: 08/20/17 21:44 Dose: 5 ml Ranolazine (Ranexa) 500 mg PO BID [facility] Last Admin: 08/20/17 17:50 Dose: 500 mg Repaglinide (Prandin) 2 mg PO DAILY [facility] Last Admin: 08/20/17 09:38 Dose: 2 mg Rosuvastatin Calcium (Crestor) 10 mg PO HS [facility] Last Admin: 08/20/17 21:48 Dose: 10 mg Sacubitril/Valsartan (Entresto 24 Mg-26 Mg) 1 tab PO DAILY [facility] Last Admin: 08/20/17 09:40 Dose: 1 tab Ticagrelor (Brilinta) 90 mg PO BID [facility] Last Admin: 08/20/17 17:50 Dose: 90 mg - Labs Labs: 08/18/17 08:13 08/20/17 07:12 Assessment and Plan (1) Respiratory distress Status: Acute (2) Pneumonia Status: Acute (3) CHF exacerbation Status: Acute (4) Anemia Status: Acute (5) Diabetes mellitus, new onset Status: Acute
[2017-08-21] MEDS: MethylPREDNISolone 40 mg Vial IVP SCH ×2 (05:21→16:11)
[2017-08-21 07:12] LABS: BASO % 0.1 % (0.0-2.0); HEMOGLOBIN 9.6 g/dL (11.0-16.0); LYMPH # 0.2 K/uL (1.0-4.3); LYMPH % 2.3 % (20.0-40.0); MEAN CELL VOLUME 82.8 fL (81.0-99.0); MEAN CORPUSCULAR HEMOGLOBIN 28.2 pg (27.0-31.0); MEAN PLATELET VOLUME 11.6 fL (7.2-11.7); MONO # 0.5 K/uL (0.0-0.8); MONO % 5.4 % (0.0-10.0); NEUT # 9.1 K/uL (1.8-7.0); NEUT % 92.2 % (50.0-75.0); NRBC % 0.2 % (0.0-2.0); PLATELET COUNT 172 K/uL (130-400); RBC 3.41 Mil/uL (3.80-5.20); RED CELL DISTRIBUTION WIDTH 16.6 % (11.5-14.5); WHITE BLOOD COUNT 9.9 K/uL (4.8-10.8)
[2017-08-21 08:25] LABS: ALBUMIN 2.8 g/dL (3.5-5.0); CALCIUM 8.4 mg/dl (8.6-10.4)
[2017-08-21] MEDS: Nystatin 100,000 Units/ml Oral Susp 5 ml UD PO SCH ×4 (09:34→21:21)
[2017-08-21] MEDS: cefTRIAXone IV 1 gm in Dextros 50 ML IVPB SCH (09:35)
[2017-08-21] MEDS: Ranolazine 500 mg Extended Release Tablets PO SCH ×2 (09:35→17:13)
[2017-08-21] MEDS: Sacubitril/Valsartan 24-26mg Tab PO SCH (09:35)
[2017-08-21] MEDS: Aspirin 325 mg EC Tablets PO SCH (09:35)
[2017-08-21] MEDS: (Novolin R) Insulin Human Regular 100 units/ml vial SC SCH ×4 (09:36→21:17)
[2017-08-21 10:35] LABS: ANISOCYTOSIS SLIGHT; BANDS 1 % (0-2); LYMPHOCYTE 1 % (20-40); MONOCYTE 4 % (0-10); NEUTROPHIL 94 % (50-75); OVALOCYTES SLIGHT; PLATELET ESTIMATE NORMAL (NORMAL); TOTAL CELLS COUNTED 100
[2017-08-21 10:36] LABS: HYPOCHROMIC SLIGHT
--- NOTE | 2017-08-21 14:34 | CP.PCM.PN ---
Subjective - Date & Time of Evaluation Date of Evaluation: 08/21/17 Time of Evaluation: 14:33 - Subjective Subjective: CHIEF COMPLAINTS TODAY : SOB/WHEEZING A/W COUGH GOT WORSE ROS. HEENT : N. Resp : No c hemoptysis Cardio : No anginal CP,palpitation GI : No abd.pain, n/v ,diarrhea or GI bleeding . 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 Musculoskel : No joint swelling , Derm : No rash Psych : Normal affect. Ext : No swelling ,calf pain PE. Pt. is alert awake in no distress. V.S As noted in the chart Head ,ear nose,throat and eyes : Normal. Neck : Supple with normal carotids. Lungs: MARGE RONCHI Heart : S1 & S2 normal with S4. BAUDILIO Abd : Soft non tender with normal bowel sounds. Neuro : Moves all ext. with no localized deficit. Ext : No edema with intact pulses.Non tender calves Derm : No rashes or decubitus ulcer. LABS/RADIOLOGY: SEPTIC W/P NEG SO FAR CXR CH. CHANGES ASSESSMENT/PLAN : NEB/IVAB INCREASE STEROIDS Objective - Vital Signs/Intake and Output Vital Signs (last 24 hours): Temp Pulse Resp BP Pulse Ox 97.8 F 87 18 123/61 100 08/21/17 08:19 08/21/17 08:19 08/21/17 08:19 08/21/17 09:35 08/21/17 08:19 Intake and Output: 08/21/17 08/21/17 11:59 23:59 Intake Total 200 Balance 200 - Medications Medications: Current Medications Acetaminophen (Tylenol 325mg Tab) 650 mg PO Q6 PRN PRN Reason: Pain, Mild (1-3) Albuterol/Ipratropium (Duoneb 3 Mg/0.5 Mg (3 Ml) Ud) 3 ml INH RQ4 PRN PRN Reason: Shortness of Breath Last Admin: 08/20/17 13:30 Dose: 3 ml Aspirin (Ecotrin) 325 mg PO DAILY [facility] Last Admin: 08/21/17 09:35 Dose: 325 mg Azithromycin (Zithromax) 500 mg PO Q24H [facility] Ergocalciferol (Drisdol 50,000 Intl Units Cap) 1 cap PO QWK [facility] Furosemide (Lasix) 40 mg IVP DAILY [facility] Last Admin: 08/21/17 09:35 Dose: 40 mg Ceftriaxone Sodium (Rocephin Iv 1 Gm Duplex) 50 mls @ 100 mls/hr IVPB DAILY [facility] Last Admin: 08/21/17 09:35 Dose: 100 mls/hr Insulin Glargine (Lantus) 20 unit SC HS [facility] Last Admin: 08/20/17 21:44 Dose: 20 unit Insulin Human Regular (Novolin R) 0 unit SC [facility] PRN Reason: Protocol Last Admin: 08/21/17 13:03 Dose: 8 unit Methylprednisolone (Solu-Medrol) 40 mg IVP Q12H [facility] Last Admin: 08/21/17 05:21 Dose: 40 mg Metoprolol Tartrate (Lopressor) 25 mg PO BID [facility] Last Admin: 08/21/17 09:35 Dose: 25 mg Nystatin (Nystatin Oral Susp) 5 ml PO QID [facility] Last Admin: 08/21/17 13:03 Dose: 5 ml Ranolazine (Ranexa) 500 mg PO BID [facility] Last Admin: 08/21/17 09:35 Dose: 500 mg Repaglinide (Prandin) 2 mg PO DAILY [facility] Last Admin: 08/21/17 09:35 Dose: 2 mg Rosuvastatin Calcium (Crestor) 10 mg PO HS [facility] Last Admin: 08/20/17 21:48 Dose: 10 mg Sacubitril/Valsartan (Entresto 24 Mg-26 Mg) 1 tab PO DAILY [facility] Last Admin: 08/21/17 09:35 Dose: 1 tab Ticagrelor (Brilinta) 90 mg PO BID [facility] Last Admin: 08/21/17 09:35 Dose: 90 mg - Labs Labs: 08/21/17 06:39 08/21/17 06:39
--- NOTE | 2017-08-21 14:35 | CP.PCM.PN ---
Subjective - Date & Time of Evaluation Date of Evaluation: 08/20/17 Time of Evaluation: 16:00 - Subjective Subjective: PROGRESS NOTE OF 08/20/17 PT INCREASING SO WITH WHEEZING ON P/E MARGE INSP+EXP WHEEZING HOLD DISCHARGE AND INCREASE STEROIDS Objective - Vital Signs/Intake and Output Vital Signs (last 24 hours): Temp Pulse Resp BP Pulse Ox 97.8 F 87 18 123/61 100 08/21/17 08:19 08/21/17 08:19 08/21/17 08:19 08/21/17 09:35 08/21/17 08:19 Intake and Output: 08/21/17 08/21/17 11:59 23:59 Intake Total 200 Balance 200 - Medications Medications: Current Medications Acetaminophen (Tylenol 325mg Tab) 650 mg PO Q6 PRN PRN Reason: Pain, Mild (1-3) Albuterol/Ipratropium (Duoneb 3 Mg/0.5 Mg (3 Ml) Ud) 3 ml INH RQ4 PRN PRN Reason: Shortness of Breath Last Admin: 08/20/17 13:30 Dose: 3 ml Aspirin (Ecotrin) 325 mg PO DAILY [facility] Last Admin: 08/21/17 09:35 Dose: 325 mg Azithromycin (Zithromax) 500 mg PO Q24H [facility] Ergocalciferol (Drisdol 50,000 Intl Units Cap) 1 cap PO QWK [facility] Furosemide (Lasix) 40 mg IVP DAILY [facility] Last Admin: 08/21/17 09:35 Dose: 40 mg Ceftriaxone Sodium (Rocephin Iv 1 Gm Duplex) 50 mls @ 100 mls/hr IVPB DAILY [facility] Last Admin: 08/21/17 09:35 Dose: 100 mls/hr Insulin Glargine (Lantus) 20 unit SC HS [facility] Last Admin: 08/20/17 21:44 Dose: 20 unit Insulin Human Regular (Novolin R) 0 unit SC A[facility]S [facility] PRN Reason: Protocol Last Admin: 08/21/17 13:03 Dose: 8 unit Methylprednisolone (Solu-Medrol) 40 mg IVP Q12H [facility] Last Admin: 08/21/17 05:21 Dose: 40 mg Metoprolol Tartrate (Lopressor) 25 mg PO BID [facility] Last Admin: 08/21/17 09:35 Dose: 25 mg Nystatin (Nystatin Oral Susp) 5 ml PO QID [facility] Last Admin: 08/21/17 13:03 Dose: 5 ml Ranolazine (Ranexa) 500 mg PO BID [facility] Last Admin: 08/21/17 09:35 Dose: 500 mg Repaglinide (Prandin) 2 mg PO DAILY [facility] Last Admin: 08/21/17 09:35 Dose: 2 mg Rosuvastatin Calcium (Crestor) 10 mg PO HS [facility] Last Admin: 08/20/17 21:48 Dose: 10 mg Sacubitril/Valsartan (Entresto 24 Mg-26 Mg) 1 tab PO DAILY [facility] Last Admin: 08/21/17 09:35 Dose: 1 tab Ticagrelor (Brilinta) 90 mg PO BID [facility] Last Admin: 08/21/17 09:35 Dose: 90 mg - Labs Labs: 08/21/17 06:39 08/21/17 06:39
--- NOTE | 2017-08-21 20:42 | CP.PCM.PN ---
Subjective - Date & Time of Evaluation Date of Evaluation: 08/21/17 Time of Evaluation: 20:42 - Subjective Subjective: CHIEF COMPLAINTS TODAY : AFEBRILE. STILLWHEEZING productive cough. STEROIDS INCREASED PER PMD. DISCHARGE HELD NOTED ROS. HEENT : N. Resp : +ve cough, wheezing ,pleuritic CP ,or hemoptysis Cardio : No anginal CP, PND, orthopnea, palpitation GI : No abd.pain, n/v ,diarrhea or GI bleeding . 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 Musculoskel : No joint swelling , Derm : No rash Psych : Normal affect. Ext : No swelling ,calf pain PE. Pt. is alert awake in no distress. V.S As noted in the chart Head ,ear nose,throat and eyes : Normal. Neck : Supple with normal carotids. Lungs: BILATERAL EXPIRATORY WHEEZE./AND RHONCHI. Heart : S1 & S2 normal with S4. No murmur. Abd : Soft non tender with normal bowel sounds. Neuro : Moves all ext. with no localized deficit. Ext : No edema with intact pulses.Non tender calves Derm : No rashes or decubitus ulcer. LABS/RADIOLOGY: CREATININE 1.5/BUN 47 lftS OKAY WBC 9.9 H/H 9.6/28.3 PLT 172 CHEST X-RAY 08/18/17 NO FOCAL CONSOLIDATION OR EFFUSION. CHRONIC INTERSTITIAL MARKINGS. SPUTUM +VE YEAST ASSESSMENT/PLAN : RESPIRATORY INSUFFICIENCY PNEUMONIA / ACUTE BRONCHITIS CHF. TRANSAMINITIS ?DRUGS. ANEMIA. DM PLAN. IV STEROIDS INCREASED TO 40 MG EVERY 12 HOURLY BY pmd NOTED. CONTINUE iv ROCEPHIN 1 G ONCE A DAY DAILY ON PO ZITHROMAX 500 MG ONCE A DAY DAILY. nystatin 5 mL by mouth swish and swallow twice a day for 5 days NEBULIZER THERAPY. . .MONITOR lftS. MONITOR RENAL FUNCTIONS CLOSELY PATIENT ON LASIX 40 MG ONCE A DAY DAILY. Objective - Vital Signs/Intake and Output Vital Signs (last 24 hours): Temp Pulse Resp BP Pulse Ox 98.0 F 94 H 20 105/65 96 08/21/17 15:37 08/21/17 15:37 08/21/17 15:37 08/21/17 17:12 08/21/17 15:37 Intake and Output: 08/21/17 08/22/17 18:59 06:59 Intake Total 700 Balance 700 - Medications Medications: Current Medications Acetaminophen (Tylenol 325mg Tab) 650 mg PO Q6 PRN PRN Reason: Pain, Mild (1-3) Albuterol/Ipratropium (Duoneb 3 Mg/0.5 Mg (3 Ml) Ud) 3 ml INH RQ4 PRN PRN Reason: Shortness of Breath Last Admin: 08/20/17 13:30 Dose: 3 ml Aspirin (Ecotrin) 325 mg PO DAILY [facility] Last Admin: 08/21/17 09:35 Dose: 325 mg Azithromycin (Zithromax) 500 mg PO Q24H [facility] Last Admin: 08/21/17 17:13 Dose: 500 mg Ergocalciferol (Drisdol 50,000 Intl Units Cap) 1 cap PO QWK [facility] Furosemide (Lasix) 40 mg IVP DAILY [facility] Last Admin: 08/21/17 09:35 Dose: 40 mg Ceftriaxone Sodium (Rocephin Iv 1 Gm Duplex) 50 mls @ 100 mls/hr IVPB DAILY [facility] Last Admin: 08/21/17 09:35 Dose: 100 mls/hr Insulin Glargine (Lantus) 20 unit SC [facility] Last Admin: 08/20/17 21:44 Dose: 20 unit Insulin Human Regular (Novolin R) 0 unit SC ACHS [facility] PRN Reason: Protocol Last Admin: 08/21/17 16:23 Dose: 8 unit Methylprednisolone (Solu-Medrol) 40 mg IVP Q12H [facility] Last Admin: 08/21/17 16:11 Dose: 40 mg Metoprolol Tartrate (Lopressor) 25 mg PO BID [facility] Last Admin: 08/21/17 17:12 Dose: 25 mg Nystatin (Nystatin Oral Susp) 5 ml PO QID [facility] Last Admin: 08/21/17 17:13 Dose: 5 ml Ranolazine (Ranexa) 500 mg PO BID [facility] Last Admin: 08/21/17 17:13 Dose: 500 mg Repaglinide (Prandin) 2 mg PO DAILY [facility] Last Admin: 08/21/17 09:35 Dose: 2 mg Rosuvastatin Calcium (Crestor) 10 mg PO HS [facility] Last Admin: 08/20/17 21:48 Dose: 10 mg Sacubitril/Valsartan (Entresto 24 Mg-26 Mg) 1 tab PO DAILY [facility] Last Admin: 08/21/17 09:35 Dose: 1 tab Ticagrelor (Brilinta) 90 mg PO BID [facility] Last Admin: 08/21/17 17:12 Dose: 90 mg - Labs Labs: 08/21/17 06:39 08/21/17 06:39 Assessment and Plan (1) Respiratory distress Status: Acute (2) Pneumonia Status: Acute (3) CHF exacerbation Status: Acute (4) Anemia Status: Acute (5) Diabetes mellitus, new onset Status: Acute
[2017-08-21] MEDS: (Lantus) Insulin Glargine, Recombinant SC SCH (21:21)
[2017-08-22] MEDS: MethylPREDNISolone 40 mg Vial IVP SCH ×2 (03:52→16:09)
[2017-08-22] MEDS: (Novolin R) Insulin Human Regular 100 units/ml vial SC SCH ×4 (08:57→21:22)
[2017-08-22] MEDS: Sacubitril/Valsartan 24-26mg Tab PO SCH (09:36)
[2017-08-22] MEDS: Nystatin 100,000 Units/ml Oral Susp 5 ml UD PO SCH ×4 (09:36→21:25)
[2017-08-22] MEDS: Aspirin 325 mg EC Tablets PO SCH (09:36)
[2017-08-22] MEDS: Ranolazine 500 mg Extended Release Tablets PO SCH ×2 (09:36→17:31)
[2017-08-22] MEDS: cefTRIAXone IV 1 gm in Dextros 50 ML IVPB SCH (09:37)
--- NOTE | 2017-08-22 15:25 | CP.PCM.PN ---
Subjective - Date & Time of Evaluation Date of Evaluation: 08/22/17 Time of Evaluation: 15:25 - Subjective Subjective: CHIEF COMPLAINTS TODAY : SOB/WHEEZING A/W COUGH GOT WORSE ROS. HEENT : N. Resp : No c hemoptysis Cardio : No anginal CP,palpitation GI : No abd.pain, n/v ,diarrhea or GI bleeding . 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 Musculoskel : No joint swelling , Derm : No rash Psych : Normal affect. Ext : No swelling ,calf pain PE. Pt. is alert awake in no distress. V.S As noted in the chart Head ,ear nose,throat and eyes : Normal. Neck : Supple with normal carotids. Lungs: MARGE RONCHI Heart : S1 & S2 normal with S4. BAUDILIO Abd : Soft non tender with normal bowel sounds. Neuro : Moves all ext. with no localized deficit. Ext : No edema with intact pulses.Non tender calves Derm : No rashes or decubitus ulcer. LABS/RADIOLOGY: SEPTIC W/P NEG SO FAR CXR CH. CHANGES ASSESSMENT/PLAN : NEB/IVAB INCREASE STEROIDS Objective - Vital Signs/Intake and Output Vital Signs (last 24 hours): Temp Pulse Resp BP Pulse Ox 97.5 F L 94 H 18 112/69 100 08/22/17 07:35 08/22/17 12:00 08/22/17 07:35 08/22/17 09:37 08/22/17 07:35 Intake and Output: 08/22/17 08/22/17 11:59 23:59 Intake Total 500 Balance 500 - Medications Medications: Current Medications Acetaminophen (Tylenol 325mg Tab) 650 mg PO Q6 PRN PRN Reason: Pain, Mild (1-3) Aspirin (Ecotrin) 325 mg PO DAILY [facility] Last Admin: 08/22/17 09:36 Dose: 325 mg Azithromycin (Zithromax) 500 mg PO Q24H [facility] Last Admin: 08/21/17 17:13 Dose: 500 mg Ergocalciferol (Drisdol 50,000 Intl Units Cap) 1 cap PO QWK [facility] Furosemide (Lasix) 40 mg IVP DAILY [facility] Last Admin: 08/22/17 09:37 Dose: 40 mg Ceftriaxone Sodium (Rocephin Iv 1 Gm Duplex) 50 mls @ 100 mls/hr IVPB DAILY [facility] Last Admin: 08/22/17 09:37 Dose: 100 mls/hr Insulin Glargine (Lantus) 20 unit SC [facility] Last Admin: 08/21/17 21:21 Dose: 20 unit Insulin Human Regular (Novolin R) 0 unit SC [facility] PRN Reason: Protocol Last Admin: 08/22/17 13:11 Dose: 8 unit Methylprednisolone (Solu-Medrol) 40 mg IVP Q12H [facility] Last Admin: 08/22/17 03:52 Dose: 40 mg Metoprolol Tartrate (Lopressor) 25 mg PO BID [facility] Last Admin: 08/22/17 09:36 Dose: 25 mg Nystatin (Nystatin Oral Susp) 5 ml PO QID [facility] Last Admin: 08/22/17 13:12 Dose: 5 ml Ranolazine (Ranexa) 500 mg PO BID [facility] Last Admin: 08/22/17 09:36 Dose: 500 mg Repaglinide (Prandin) 2 mg PO DAILY [facility] Last Admin: 08/22/17 09:36 Dose: 2 mg Rosuvastatin Calcium (Crestor) 10 mg PO [facility] Last Admin: 08/21/17 21:21 Dose: 10 mg Sacubitril/Valsartan (Entresto 24 Mg-26 Mg) 1 tab PO DAILY [facility] Last Admin: 08/22/17 09:36 Dose: 1 tab Ticagrelor (Brilinta) 90 mg PO BID [facility] Last Admin: 08/22/17 09:36 Dose: 90 mg - Labs Labs: 08/21/17 06:39 08/21/17 06:39
[2017-08-22 16:00] VITALS: RESP 20
[2017-08-22] MEDS: (Lantus) Insulin Glargine, Recombinant SC SCH (21:26)
[2017-08-23] MEDS: MethylPREDNISolone 40 mg Vial IVP SCH ×2 (04:20→17:40)
[2017-08-23] MEDS: (Novolin R) Insulin Human Regular 100 units/ml vial SC SCH ×4 (08:19→21:48)
[2017-08-23] MEDS: Aspirin 325 mg EC Tablets PO SCH (09:47)
[2017-08-23] MEDS: Sacubitril/Valsartan 24-26mg Tab PO SCH (09:48)
[2017-08-23] MEDS: cefTRIAXone IV 1 gm in Dextros 50 ML IVPB SCH (09:49)
[2017-08-23] MEDS: Ranolazine 500 mg Extended Release Tablets PO SCH ×2 (09:49→17:43)
[2017-08-23] MEDS: Nystatin 100,000 Units/ml Oral Susp 5 ml UD PO SCH ×4 (09:49→21:48)
[2017-08-23] MEDS ORDERED: Ergocalciferol 50,000 Intl Units Cap PO SCH (10:00)
--- NOTE | 2017-08-23 13:22 | CP.PCM.PN ---
Subjective - Date & Time of Evaluation Date of Evaluation: 08/23/17 Time of Evaluation: 13:22 - Subjective Subjective: CHIEF COMPLAINTS TODAY : SOB/WHEEZING A/W COUGH GOT WORSE ROS. HEENT : N. Resp : No c hemoptysis Cardio : No anginal CP,palpitation GI : No abd.pain, n/v ,diarrhea or GI bleeding . 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 Musculoskel : No joint swelling , Derm : No rash Psych : Normal affect. Ext : No swelling ,calf pain PE. Pt. is alert awake in no distress. V.S As noted in the chart Head ,ear nose,throat and eyes : Normal. Neck : Supple with normal carotids. Lungs: MARGE RONCHI Heart : S1 & S2 normal with S4. BAUDILIO Abd : Soft non tender with normal bowel sounds. Neuro : Moves all ext. with no localized deficit. Ext : No edema with intact pulses.Non tender calves Derm : No rashes or decubitus ulcer. LABS/RADIOLOGY: SEPTIC W/P NEG SO FAR CXR CH. CHANGES ASSESSMENT/PLAN : NEB/IVAB INCREASE STEROIDS Objective - Vital Signs/Intake and Output Vital Signs (last 24 hours): Temp Pulse Resp BP Pulse Ox 97.7 F 83 20 112/58 L 100 08/23/17 09:24 08/23/17 09:24 08/23/17 09:24 08/23/17 09:48 08/23/17 09:24 - Medications Medications: Current Medications Acetaminophen (Tylenol 325mg Tab) 650 mg PO Q6 PRN PRN Reason: Pain, Mild (1-3) Aspirin (Ecotrin) 325 mg PO DAILY [facility] Last Admin: 08/23/17 09:47 Dose: 325 mg Azithromycin (Zithromax) 500 mg PO Q24H [facility] Last Admin: 08/22/17 16:10 Dose: 500 mg Ergocalciferol (Drisdol 50,000 Intl Units Cap) 1 cap PO QWK [facility] Last Admin: 08/23/17 09:48 Dose: 1 cap Furosemide (Lasix) 40 mg IVP DAILY [facility] Last Admin: 08/23/17 09:48 Dose: 40 mg Ceftriaxone Sodium (Rocephin Iv 1 Gm Duplex) 50 mls @ 100 mls/hr IVPB DAILY [facility] Last Admin: 08/23/17 09:49 Dose: 100 mls/hr Insulin Glargine (Lantus) 20 unit SC [facility] Last Admin: 08/22/17 21:26 Dose: 20 unit Insulin Human Regular (Novolin R) 0 unit SC [facility] PRN Reason: Protocol Last Admin: 08/23/17 08:19 Dose: Not Given Methylprednisolone (Solu-Medrol) 40 mg IVP Q12H [facility] Last Admin: 08/23/17 04:20 Dose: 40 mg Metoprolol Tartrate (Lopressor) 25 mg PO BID [facility] Last Admin: 08/23/17 09:48 Dose: 25 mg Nystatin (Nystatin Oral Susp) 5 ml PO QID [facility] Last Admin: 08/23/17 09:49 Dose: 5 ml Ranolazine (Ranexa) 500 mg PO BID [facility] Last Admin: 08/23/17 09:49 Dose: 500 mg Repaglinide (Prandin) 2 mg PO DAILY [facility] Last Admin: 08/23/17 09:47 Dose: 2 mg Rosuvastatin Calcium (Crestor) 10 mg PO [facility] Last Admin: 08/22/17 21:25 Dose: 10 mg Sacubitril/Valsartan (Entresto 24 Mg-26 Mg) 1 tab PO DAILY [facility] Last Admin: 08/23/17 09:48 Dose: 1 tab Ticagrelor (Brilinta) 90 mg PO BID [facility] Last Admin: 08/23/17 09:48 Dose: 90 mg - Labs Labs: 08/21/17 06:39 08/21/17 06:39
--- NOTE | 2017-08-23 14:06 | CP.PCM.PN ---
Subjective - Date & Time of Evaluation Date of Evaluation: 08/23/17 Time of Evaluation: 14:06 - Subjective Subjective: CHIEF COMPLAINTS TODAY : AFEBRILE. WHEEZING LESS IMPROVING COUGH ROS. HEENT : N. Resp : +ve cough, wheezing ,pleuritic CP ,or hemoptysis Cardio : No anginal CP, PND, orthopnea, palpitation GI : No abd.pain, n/v ,diarrhea or GI bleeding . 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 Musculoskel : No joint swelling , Derm : No rash Psych : Normal affect. Ext : No swelling ,calf pain PE. Pt. is alert awake in no distress. V.S As noted in the chart Head ,ear nose,throat and eyes : Normal. Neck : Supple with normal carotids. Lungs: BILATERAL EXPIRATORY WHEEZE./AND RHONCHI. Heart : S1 & S2 normal with S4. No murmur. Abd : Soft non tender with normal bowel sounds. Neuro : Moves all ext. with no localized deficit. Ext : No edema with intact pulses.Non tender calves Derm : No rashes or decubitus ulcer. LABS/RADIOLOGY: CREATININE 1.5/BUN 47 lftS OKAY WBC 9.9 H/H 9.6/28.3 PLT 172 CHEST X-RAY 08/18/17 NO FOCAL CONSOLIDATION OR EFFUSION. CHRONIC INTERSTITIAL MARKINGS. SPUTUM +VE YEAST ASSESSMENT/PLAN : RESPIRATORY INSUFFICIENCY PNEUMONIA / ACUTE BRONCHITIS CHF. TRANSAMINITIS ?DRUGS. ANEMIA. DM PLAN. IV SOLUMEDROL 40 MG EVERY 12 HOURLY DC iv ROCEPHIN 1 G ONCE A DAY DAILY IN AM DC PO ZITHROMAX 500 MG ONCE A DAY DAILY.IN AM nystatin 5 mL by mouth swish and swallow twice a day for 5 days NEBULIZER THERAPY. .BMP,CBC IN AM MONITOR RENAL FUNCTIONS CLOSELY PATIENT ON LASIX 40 MG ONCE A DAY DAILY. Objective - Vital Signs/Intake and Output Vital Signs (last 24 hours): Temp Pulse Resp BP Pulse Ox 97.7 F 83 20 112/58 L 100 08/23/17 09:24 08/23/17 09:24 08/23/17 09:24 08/23/17 09:48 08/23/17 09:24 - Medications Medications: Current Medications Acetaminophen (Tylenol 325mg Tab) 650 mg PO Q6 PRN PRN Reason: Pain, Mild (1-3) Aspirin (Ecotrin) 325 mg PO DAILY [facility] Last Admin: 08/23/17 09:47 Dose: 325 mg Azithromycin (Zithromax) 500 mg PO Q24H [facility] Last Admin: 08/22/17 16:10 Dose: 500 mg Ergocalciferol (Drisdol 50,000 Intl Units Cap) 1 cap PO QWK [facility] Last Admin: 08/23/17 09:48 Dose: 1 cap Furosemide (Lasix) 40 mg IVP DAILY [facility] Last Admin: 08/23/17 09:48 Dose: 40 mg Ceftriaxone Sodium (Rocephin Iv 1 Gm Duplex) 50 mls @ 100 mls/hr IVPB DAILY [facility] Last Admin: 08/23/17 09:49 Dose: 100 mls/hr Insulin Glargine (Lantus) [address] [facility] Last Admin: 08/22/17 21:26 Dose: 20 unit Insulin Human Regular (Novolin R) 0 unit SC [facility] PRN Reason: Protocol Last Admin: 08/23/17 08:19 Dose: Not Given Methylprednisolone (Solu-Medrol) 40 mg IVP Q12H [facility] Last Admin: 08/23/17 04:20 Dose: 40 mg Metoprolol Tartrate (Lopressor) 25 mg PO BID [facility] Last Admin: 08/23/17 09:48 Dose: 25 mg Nystatin (Nystatin Oral Susp) 5 ml PO QID [facility] Last Admin: 08/23/17 09:49 Dose: 5 ml Ranolazine (Ranexa) 500 mg PO BID [facility] Last Admin: 08/23/17 09:49 Dose: 500 mg Repaglinide (Prandin) 2 mg PO DAILY [facility] Last Admin: 08/23/17 09:47 Dose: 2 mg Rosuvastatin Calcium (Crestor) 10 mg PO HS [facility] Last Admin: 08/22/17 21:25 Dose: 10 mg Sacubitril/Valsartan (Entresto 24 Mg-26 Mg) 1 tab PO DAILY [facility] Last Admin: 08/23/17 09:48 Dose: 1 tab Ticagrelor (Brilinta) 90 mg PO BID [facility] Last Admin: 08/23/17 09:48 Dose: 90 mg - Labs Labs: 08/21/17 06:39 08/21/17 06:39 Assessment and Plan (1) Respiratory distress Status: Acute (2) Pneumonia Status: Acute (3) CHF exacerbation Status: Acute (4) Anemia Status: Acute (5) Diabetes mellitus, new onset Status: Acute
[2017-08-23] MEDS: (Lantus) Insulin Glargine, Recombinant SC SCH (21:47)
[2017-08-24 01:34] VITALS: TEMP 97.4
[2017-08-24 02:05] LABS: SQUAMOUS EPITHIAL 3 /hpf (0-5); URINE BACTERIA RARE (<OCC); URINE BILIRUBIN NEGATIVE (NEGATIVE); URINE BLOOD NEGATIVE (NEGATIVE); URINE CLARITY Hazy (Clear); URINE COLOR Yellow (YELLOW); URINE GLUCOSE (UA) NORMAL (Normal); URINE LEUKOCYTE ESTERASE 2+ Leu/uL (Negative); URINE NITRATE NEGATIVE (NEGATIVE); URINE PROTEIN NEGATIVE (NEGATIVE); URINE UROBILINOGEN NORMAL mg/dL (0.2-1.0)
[2017-08-24] MEDS: MethylPREDNISolone 40 mg Vial IVP SCH (03:58)
[2017-08-24 07:11] LABS: MEAN CELL VOLUME 81.4 fL (81.0-99.0); MEAN CORPUSCULAR HEMOGLOBIN 26.7 pg (27.0-31.0); MEAN CORPUSCULAR HGB CONC 32.9 g/dL (33.0-37.0); MEAN PLATELET VOLUME 10.9 fL (7.2-11.7); RBC 4.11 Mil/uL (3.80-5.20); RED CELL DISTRIBUTION WIDTH 16.3 % (11.5-14.5)
[2017-08-24 08:24] LABS: ALB/GLOB RATIO 1.1 (1.0-2.1); BILIRUBIN,DIRECT 0.2 mg/dL (0.0-0.4); CALCIUM 8.6 mg/dl (8.6-10.4)
[2017-08-24 08:36] VITALS: O2SAT 97
[2017-08-24] MEDS: (Novolin R) Insulin Human Regular 100 units/ml vial SC SCH ×2 (08:53→12:54)
[2017-08-24] MEDS: Ranolazine 500 mg Extended Release Tablets PO SCH (09:52)
[2017-08-24] MEDS: Sacubitril/Valsartan 24-26mg Tab PO SCH (09:52)
[2017-08-24] MEDS: Aspirin 325 mg EC Tablets PO SCH (09:52)
[2017-08-24] MEDS: Nystatin 100,000 Units/ml Oral Susp 5 ml UD PO SCH ×2 (09:52→13:27)
[2017-08-24 09:55] VITALS: BP 109/72
[2017-08-24] MEDS: cefTRIAXone IV 1 gm in Dextros 50 ML IVPB SCH (09:55)
--- NOTE | 2017-08-24 13:17 | CP.PCM.PN ---
Subjective - Date & Time of Evaluation Date of Evaluation: 08/24/17 Time of Evaluation: 13:16 - Subjective Subjective: PATIENT IS ADMITTED FOR CHF AND PNA; LYING DOWN ON ROOM AIR NO SIGN OF DISTRESS NOTED; DENIES CHEST PAIN OR SOB Objective - Vital Signs/Intake and Output Vital Signs (last 24 hours): Temp Pulse Resp BP Pulse Ox 97.4 F L 72 20 109/72 97 08/24/17 07:40 08/24/17 08:28 08/24/17 07:40 08/24/17 09:53 08/24/17 07:40 Intake and Output: 08/24/17 08/24/17 06:59 18:59 Intake Total 520 Balance 520 - Medications Medications: Current Medications Acetaminophen (Tylenol 325mg Tab) 650 mg PO Q6 PRN PRN Reason: Pain, Mild (1-3) Last Admin: 08/24/17 00:50 Dose: 650 mg Aspirin (Ecotrin) 325 mg PO DAILY [facility] Last Admin: 08/24/17 09:52 Dose: 325 mg Azithromycin (Zithromax) 500 mg PO Q24H [facility] Last Admin: 08/23/17 17:40 Dose: 500 mg Ergocalciferol (Drisdol 50,000 Intl Units Cap) 1 cap PO QWK [facility] Last Admin: 08/23/17 09:48 Dose: 1 cap Furosemide (Lasix) 40 mg IVP DAILY [facility] Last Admin: 08/24/17 09:52 Dose: 40 mg Ceftriaxone Sodium (Rocephin Iv 1 Gm Duplex) 50 mls @ 100 mls/hr IVPB DAILY [facility] Last Admin: 08/24/17 09:55 Dose: 100 mls/hr Insulin Glargine (Lantus) 20 unit SC [facility] Last Admin: 08/23/17 21:47 Dose: 20 unit Insulin Human Regular (Novolin R) 0 unit SC [facility] PRN Reason: Protocol Last Admin: 08/24/17 08:53 Dose: 3 unit Methylprednisolone (Solu-Medrol) 40 mg IVP Q12H [facility] Last Admin: 08/24/17 03:58 Dose: 40 mg Metoprolol Tartrate (Lopressor) 25 mg PO BID [facility] Last Admin: 08/24/17 09:53 Dose: 25 mg Nystatin (Nystatin Oral Susp) 5 ml PO QID [facility] Last Admin: 08/24/17 09:52 Dose: 5 ml Ranolazine (Ranexa) 500 mg PO BID [facility] Last Admin: 08/24/17 09:52 Dose: 500 mg Repaglinide (Prandin) 2 mg PO DAILY [facility] Last Admin: 08/24/17 09:52 Dose: 2 mg Rosuvastatin Calcium (Crestor) 10 mg PO HS [facility] Last Admin: 08/23/17 21:47 Dose: 10 mg Sacubitril/Valsartan (Entresto 24 Mg-26 Mg) 1 tab PO DAILY [facility] Last Admin: 08/24/17 09:52 Dose: 1 tab Ticagrelor (Brilinta) 90 mg PO BID [facility] Last Admin: 08/24/17 09:52 Dose: 90 mg - Labs Labs: 08/24/17 06:52 08/24/17 06:52 Assessment and Plan - Assessment and Plan (Free Text) Assessment: PATIENT IS SEEN AND EXAMINED AT THE BEDSIDE LUNG SOUND CLEAR NO WHEEZING NOTED PATIENT GETTING SOLUMEDROL IV WHICH WILL BE TAPE OFF ON DISCHARGE AFEBRILE AND NORMAL BLOOD PRESSURE CR IS 2.2 AND PATIENT WAS GETTING LASIX WBC IS SLIGHTLY ELEVATED POSS SECONDARY TO STEROIDS DISCUSS WITH TENORIO AND DR MART WHO AGREE AND CLEAR PATIENT FOR DC FOLLOW UP WITH DR MART IN HIS OFFICE ----CALL FOR APPOINTMENT CONTINUE ALL YOUR HOME MEDICATION DIRECTED NEW PRESCRIPTION GIVEN PREDNISOLONE 40 MG (4 TABS) BY MOUTH DAILY FOR 3 DAYS THEN 30 MG (3 TABS) BY MOUTH DAILY FOR 3 DAYS THEN 20 MG (2 TABS) BY MOUTH DAILY FOR 3 DAYS THEN 10 MG (1 TAB) BY MOUTH DAILY FOR 3 DAYS ACTIVITY TOLERATED CALL DR MART OR GO TO THE EMERGENCY ROOM IF SYMPTOMS RETURN OR WORSENING DISCUSS WITH PATIENT WHO AGREE AND VERBALIZED UNDERSTANDING
--- NOTE | 2017-08-24 13:31 | CP.PCM.PN ---
Subjective - Date & Time of Evaluation Date of Evaluation: 08/24/17 Time of Evaluation: 13:31 - Subjective Subjective: CHIEF COMPLAINTS TODAY : AFEBRILE. OFFERS NO NEW COMPLAINTS. fEELING BETTER ROS. HEENT : N. Resp : +ve cough, wheezing ,pleuritic CP ,or hemoptysis Cardio : No anginal CP, PND, orthopnea, palpitation GI : No abd.pain, n/v ,diarrhea or GI bleeding . 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 Musculoskel : No joint swelling , Derm : No rash Psych : Normal affect. Ext : No swelling ,calf pain PE. Pt. is alert awake in no distress. V.S As noted in the chart Head ,ear nose,throat and eyes : Normal. Neck : Supple with normal carotids. Lungs: FEW EXPIRATORY WHEEZE OTHERWISE CLEAR Heart : S1 & S2 normal with S4. No murmur. Abd : Soft non tender with normal bowel sounds. Neuro : Moves all ext. with no localized deficit. Ext : No edema with intact pulses.Non tender calves Derm : No rashes or decubitus ulcer. LABS/RADIOLOGY: CREATININE 1.5/BUN 47 lftS OKAY WBC 9.9 H/H 9.6/28.3 PLT 172 CHEST X-RAY 08/18/17 NO FOCAL CONSOLIDATION OR EFFUSION. CHRONIC INTERSTITIAL MARKINGS. SPUTUM +VE YEAST ASSESSMENT/PLAN : RESPIRATORY INSUFFICIENCY PNEUMONIA / ACUTE BRONCHITIS CHF. TRANSAMINITIS ?DRUGS. ANEMIA. DM PLAN. Taper steroids as per PMD. IV SOLUMEDROL 40 MG EVERY 12 HOURLY off antibiotics NEBULIZER THERAPY. .BMP,CBC IN AM MONITOR RENAL FUNCTIONS CLOSELY PATIENT ON LASIX 40 MG ONCE A DAY DAILY. Objective - Vital Signs/Intake and Output Vital Signs (last 24 hours): Temp Pulse Resp BP Pulse Ox 97.4 F L 72 20 109/72 97 08/24/17 07:40 08/24/17 08:28 08/24/17 07:40 08/24/17 09:53 08/24/17 07:40 Intake and Output: 08/24/17 08/24/17 06:59 18:59 Intake Total 520 Balance 520 - Medications Medications: Current Medications Acetaminophen (Tylenol 325mg Tab) 650 mg PO Q6 PRN PRN Reason: Pain, Mild (1-3) Last Admin: 08/24/17 00:50 Dose: 650 mg Aspirin (Ecotrin) 325 mg PO DAILY [facility] Last Admin: 08/24/17 09:52 Dose: 325 mg Azithromycin (Zithromax) 500 mg PO Q24H [facility] Last Admin: 08/23/17 17:40 Dose: 500 mg Ergocalciferol (Drisdol 50,000 Intl Units Cap) 1 cap PO QWK [facility] Last Admin: 08/23/17 09:48 Dose: 1 cap Furosemide (Lasix) 40 mg IVP DAILY [facility] Last Admin: 08/24/17 09:52 Dose: 40 mg Ceftriaxone Sodium (Rocephin Iv 1 Gm Duplex) 50 mls @ 100 mls/hr IVPB DAILY [facility] Last Admin: 08/24/17 09:55 Dose: 100 mls/hr Insulin Glargine (Lantus) 20 unit SC [facility] Last Admin: 08/23/17 21:47 Dose: 20 unit Insulin Human Regular (Novolin R) 0 unit SC [facility] PRN Reason: Protocol Last Admin: 08/24/17 12:54 Dose: 8 unit Methylprednisolone (Solu-Medrol) 40 mg IVP Q12H [facility] Last Admin: 08/24/17 03:58 Dose: 40 mg Metoprolol Tartrate (Lopressor) 25 mg PO BID [facility] Last Admin: 08/24/17 09:53 Dose: 25 mg Nystatin (Nystatin Oral Susp) 5 ml PO QID [facility] Last Admin: 08/24/17 13:27 Dose: 5 ml Ranolazine (Ranexa) 500 mg PO BID [facility] Last Admin: 08/24/17 09:52 Dose: 500 mg Repaglinide (Prandin) 2 mg PO DAILY [facility] Last Admin: 08/24/17 09:52 Dose: 2 mg Rosuvastatin Calcium (Crestor) 10 mg PO HS [facility] Last Admin: 08/23/17 21:47 Dose: 10 mg Sacubitril/Valsartan (Entresto 24 Mg-26 Mg) 1 tab PO DAILY [facility] Last Admin: 08/24/17 09:52 Dose: 1 tab Ticagrelor (Brilinta) 90 mg PO BID [facility] Last Admin: 08/24/17 09:52 Dose: 90 mg - Labs Labs: 08/24/17 06:52 08/24/17 06:52 Assessment and Plan (1) Respiratory distress Status: Acute (2) Pneumonia Status: Acute (3) CHF exacerbation Status: Acute (4) Anemia Status: Acute (5) Diabetes mellitus, new onset Status: Acute
--- NOTE | 2017-08-24 13:32 | CP.PCM.DIS ---
Provider - Provider Date of Admission: 08/16/17 18:44 Attending physician: Uriah Hernández MD Time Spent in preparation of Discharge (in minutes): 30 Hospital Course - Lab Results Lab Results: Micro Results 08/16/17 17:00 Blood Blood Culture - Final NO GROWTH AFTER 5 DAYS 08/16/17 17:00 Blood Gram Stain - Final TEST NOT PERFORMED 08/16/17 18:30 Blood Blood Culture - Final NO GROWTH AFTER 5 DAYS 08/16/17 18:30 Blood Gram Stain - Final TEST NOT PERFORMED 08/17/17 09:27 Sputum Gram Stain - Final 08/17/17 09:27 Sputum Sputum Culture - Final Yeast Species Most Recent Lab Values WBC 14.0 K/uL (4.8-10.8) H 08/24/17 06:52 RBC 4.11 Mil/uL (3.80-5.20) 08/24/17 06:52 Hgb 11.0 g/dL (11.0-16.0) 08/24/17 06:52 Hct 33.4 % (34.0-47.0) L 08/24/17 06:52 MCV 81.4 fL (81.0-99.0) 08/24/17 06:52 MCH 26.7 pg (27.0-31.0) L 08/24/17 06:52 MCHC 32.9 g/dL (33.0-37.0) L 08/24/17 06:52 RDW 16.3 % (11.5-14.5) H 08/24/17 06:52 Plt Count 220 K/uL (130-400) 08/24/17 06:52 MPV 10.9 fL (7.2-11.7) 08/24/17 06:52 Neut % (Auto) 92.2 % (50.0-75.0) H 08/21/17 06:39 Lymph % (Auto) 2.3 % (20.0-40.0) L 08/21/17 06:39 [place] % (Auto) 5.4 % (0.0-10.0) 08/21/17 06:39 Eos % (Auto) 0.0 % (0.0-4.0) 08/21/17 06:39 Baso % (Auto) 0.1 % (0.0-2.0) 08/21/17 06:39 Neut # (Auto) 9.1 K/uL (1.8-7.0) H 08/21/17 06:39 Lymph # (Auto) 0.2 K/uL (1.0-4.3) L 08/21/17 06:39 [place] # (Auto) 0.5 K/uL (0.0-0.8) 08/21/17 06:39 Eos # (Auto) 0.0 K/uL (0.0-0.7) 08/21/17 06:39 Baso # (Auto) 0.0 K/uL (0.0-0.2) 08/21/17 06:39 Neutrophils % (Manual) 94 % (50-75) H 08/21/17 06:39 Band Neutrophils % 1 % (0-2) 08/21/17 06:39 Lymphocytes % (Manual) 1 % (20-40) L 08/21/17 06:39 Nucleated RBC % 1 % (0-0) H 08/17/17 07:32 Monocytes % (Manual) 4 % (0-10) 08/21/17 06:39 Platelet Estimate Normal (NORMAL) 08/21/17 06:39 Polychromasia Slight 08/17/17 07:32 Tear Drop Cells Slight 08/16/17 17:10 Hypochromasia (manual) Slight 08/21/17 06:39 Anisocytosis (manual) Slight 08/21/17 06:39 Ovalocytes Slight 08/21/17 06:39 ESR 26 mm/hr (0-20) H 08/17/17 07:32 Sodium 131 mmol/L (132-148) L 08/24/17 06:52 Potassium 5.0 mmol/L (3.6-5.2) 08/24/17 06:52 Chloride 91 mmol/L (98-107) L 08/24/17 06:52 Carbon Dioxide 31 mmol/L (22-30) H 08/24/17 06:52 Anion Gap 14 (10-20) 08/24/17 06:52 BUN 70 mg/dL (7-17) H 08/24/17 06:52 Creatinine 2.2 mg/dL (0.7-1.2) H 08/24/17 06:52 Est GFR ( Amer) 26 08/24/17 06:52 Est GFR (Non-Af Amer) 21 08/24/17 06:52 POC Glucose (mg/dL) 359 mg/dL (65-110) H 08/24/17 11:08 Random Glucose 182 mg/dL (65-105) H 08/24/17 06:52 Calcium 8.6 mg/dl (8.6-10.4) 08/24/17 06:52 Phosphorus 3.4 mg/dL (2.5-4.5) 08/20/17 07:12 Magnesium 2.1 mg/dL (1.6-2.3) 08/20/17 07:12 Total Bilirubin 0.3 mg/dL (0.2-1.3) 08/24/17 06:52 Direct Bilirubin 0.2 mg/dL (0.0-0.4) 08/24/17 06:52 AST 29 U/L (14-36) 08/24/17 06:52 ALT 41 U/L (9-52) 08/24/17 06:52 Alkaline Phosphatase 55 U/L (38-126) 08/24/17 06:52 Troponin I 0.0430 ng/mL (0.00-0.120) 08/16/17 17:10 C-React Prot High Sens 2.27 mg/L (1.00-3.00) 08/17/17 07:32 NT-Pro-B Natriuret Pep 63888 pg/mL (0-900) H 08/16/17 17:10 Total Protein 5.8 g/dL (6.3-8.3) L 08/24/17 06:52 Albumin 3.0 g/dL (3.5-5.0) L 08/24/17 06:52 Globulin 2.8 gm/dL (2.2-3.9) 08/24/17 06:52 Albumin/Globulin Ratio 1.1 (1.0-2.1) 08/24/17 06:52 Urine Color Yellow (YELLOW) 08/24/17 01:50 Urine Clarity Hazy (Clear) 08/24/17 01:50 Urine pH 5.0 (5.0-8.0) 08/24/17 01:50 Ur Specific [place] 1.015 (1.003-1.030) 08/24/17 01:50 Urine Protein Negative mg/dL (NEGATIVE) 08/24/17 01:50 Urine Glucose (UA) Normal mg/dL (Normal) 08/24/17 01:50 Urine Ketones Negative mg/dL (NEGATIVE) 08/24/17 01:50 Urine Blood Negative (NEGATIVE) 08/24/17 01:50 Urine Nitrate Negative (NEGATIVE) 08/24/17 01:50 Urine Bilirubin Negative (NEGATIVE) 08/24/17 01:50 Urine Urobilinogen Normal mg/dL (0.2-1.0) 08/24/17 01:50 Ur Leukocyte Esterase 2+ Rolf/uL (Negative) H 08/24/17 01:50 Urine WBC (Auto) 14 /hpf (0-5) H 08/24/17 01:50 Urine RBC (Auto) 5 /hpf (0-3) H 08/24/17 01:50 Ur Squamous Epith Cells 3 /hpf (0-5) 08/24/17 01:50 Urine Bacteria Rare (<OCC) 08/24/17 01:50 Hyaline Casts 6-10 /lpf (0-2) H 08/24/17 01:50 Influenza Typ A,B (EIA) Negative for flu a/b (NEGATIVE) 08/16/17 23:19 Influenza Type A Ab <1:8 titer (<1:8) 08/17/17 07:32 Influenza Type B Ab <1:8 titer (<1:8) 08/17/17 07:32 Ur L.pneumophila Ag Negative (NEGATIVE) 08/16/17 22:23 Mycoplasma pneumon IgM Negative (NEGATIVE) 08/17/17 07:32 - Hospital Course Hospital Course: DMITTED WITH PNEUMONIA AND SOB PT FOR FEW DAYS HAS BEEN C/O SOB AND SEVERE NITE TIME COUGHING WITH NO IMPROVEMENT WITH OUTPT PO LEVAQUINE EVALUATED IN ER AND HAS CHF WITH MARGE PNEUMONIA PAST HIST. CAD/STENT/CARDIOMYOPATHY AICD T2DM/HTN/COPD PT IMPROVED ON IV LASIX/AB AND STEROIDS CURRENTLY STABLE FOR D/C F/U KIDNEY FUNCTION Discharge Exam - Head Exam Head Exam: NORMAL INSPECTION Discharge Plan - Discharge Medications Prescriptions: predniSONE [predniSONE Tab] 10 mg PO DAILY #30 tab - Follow Up Plan Condition: FAIR Disposition: HOME/ ROUTINE Instructions: Prednisone (By mouth), Heart Failure (DC), Meal Planning with Diabetes Exchanges (GEN), Managing Diabetes During Sick Days (DC), Pneumonia (DC ) Additional Instructions: FOLLOW UP WITH DR HERNÁNDEZ IN HIS OFFICE ----CALL FOR APPOINTMENT CONTINUE ALL YOUR HOME MEDICATION DIRECTED NEW PRESCRIPTION GIVEN PREDNISOLONE 40 MG (4 TABS) BY MOUTH DAILY FOR 3 DAYS THEN 30 MG (3 TABS) BY MOUTH DAILY FOR 3 DAYS THEN 20 MG (2 TABS) BY MOUTH DAILY FOR 3 DAYS THEN 10 MG (1 TAB) BY MOUTH DAILY FOR 3 DAYS ACTIVITY TOLERATED CALL DR HERNÁNDEZ OR GO TO THE EMERGENCY ROOM IF SYMPTOMS RETURN OR WORSENING Referrals: Philly Padilla MD [Staff Provider] - Uriah Hernández MD [Staff Provider] -
[2017-08-24 15:59] VITALS: PULSE 78
--- NOTE | 2017-08-24 17:10 | PCM.HF ---
Heart Failure Core Measure - Heart Failure Ejection Fraction: Less Than 40 % MAGNOLIA Inhibitor Prescribed: No Contraindication/Reason for not providing: arb Beta-Reid Prescribed: Metoprolol Succinate Angiotensin II Receptor Reid Prescribed: Yes AnticoagulationTherapy for Atrial Fibrillation/Atrialflutter: No Contraindication/Reason for not providing: no hx of afib Aldosterone Antagonist Prescribed: No Contraindication/Reason for not providing: arf Hydralazine Nitrate Prescribed: No Contraindication/Reason for not providing: on renexa Implantable Cardioverter Defibrillator Therapy: No Contraindication/Reason for not providing: patient has a pacemaker Cardiac Resynchronization Therapy Prescribed: No Contraindication/Reason for not providing: patient has a pacemaker - Follow up Will be discharged to: Home Follow Up Date (must be within 7 days from discharge): 08/30/17 Follow Up Time: 09:00
== END 2017-08-24 16:00 | disposition home or self-care (01) | DRG 291 ==
LOC: C.ER 16:06 → C.9E 18:44 → C.5S 18:44
PROVIDERS: ADMIT Internal Medicine Cardiovascular Disease; ATTEND Internal Medicine Cardiovascular Disease
DX: I11.0 Hypertensive heart disease with heart failure (principal); J18.9 Pneumonia, unspecified organism; R06.03 Acute respiratory distress; J44.0 Chronic obstructive pulmonary disease with (acute) lower respiratory infection; J20.9 Acute bronchitis, unspecified; I42.9 Cardiomyopathy, unspecified; D64.9 Anemia, unspecified; E11.9 Type 2 diabetes mellitus without complications; E78.00 Pure hypercholesterolemia, unspecified; I50.23 Acute on chronic systolic (congestive) heart failure; I25.10 Atherosclerotic heart disease of native coronary artery without angina pectoris; Z86.73 Personal history of transient ischemic attack (TIA), and cerebral infarction without residual deficits; Z90.49 Acquired absence of other specified parts of digestive tract; Z95.0 Presence of cardiac pacemaker; Z95.5 Presence of coronary angioplasty implant and graft

== ENCOUNTER 2017-12-22 13:23 | Inpatient (IN) | payer MEDICARE ==
[2017-12-22 13:23] VITALS: BMI 25.5
--- NOTE | 2017-12-22 14:15 | C.PDOC ---
History Of Present Illness 87-year-old female presents to the ER complaining of left-sided chest pain associated with SOB since last night. The pain radiates to her left back and worsens with deep inspiration. She admits to having a mild nonproductive cough. Patient denies fever, diaphoresis, palpitations, nausea, vomiting, dizziness , numbness, weakness, or other complaints. PMHx is significant for asthma, COPD , HTN, diabetes, and CHF. Time Seen by Provider: 12/22/17 13:36 Chief Complaint (Nursing): Chest Pain History Per: Patient History/Exam Limitations: no limitations Onset/Duration Of Symptoms: Days Current Symptoms Are (Timing): Still Present Severity: Mild Quality: "Pain" Exacerbating Factors: Deep Breathing Past Medical History Reviewed: Historical Data, Nursing Documentation, Vital Signs Vital Signs: Last Vital Signs Temp 97.7 F 12/26/17 07:35 Pulse 96 H 12/26/17 07:35 Resp 20 12/26/17 07:35 BP 96/59 L 12/26/17 10:31 Pulse Ox 97 12/26/17 12:44 - Medical History PMH: Anemia, Anxiety, Arthritis (BACK AND KNEES AND R SHOULDER), Asthma, Cardia Arrhythmia, CHF, COPD, Diabetes, HTN, Hypercholesterolemia, TIA Surgical History: Appendectomy, Coronary Stent, Endoscopy, Pacemaker (2016) - [facility] Procedures ASSISTANCE WITH RESPIRATORY VENTILATION, 24-96 HRS, CPAP (06/15/17) ASSISTANCE WITH RESPIRATORY VENTILATION, <24 HRS, CPAP (02/06/16) ESOPHAGOGASTRODUODENOSCOPY [EGD] W/CLOSED BIOPSY (12/30/14) LEFT HEART CARDIAC CATH (10/19/13) LT HEART ANGIOCARDIOGRAM (10/19/13) MEASURE OF CARDIAC SAMPL & PRESSURE, L HEART, PERC APPROACH (05/21/15) PACKED CELL TRANSFUSION (12/30/14) PLAIN RADIOGRAPHY OF MULT COR ART USING OTH CONTRAST (05/21/15) TRANSFUSE NONAUT RED BLOOD CELLS IN PERIPH VEIN, PERC (02/06/16) Family History: States: No Known Family Hx - Social History Hx Tobacco Use: No Hx Alcohol Use: No Hx Substance Use: No - Immunization History Hx Tetanus Toxoid Vaccination: No Hx Influenza Vaccination: Yes Hx Pneumococcal Vaccination: Yes Review Of Systems Constitutional: Negative for: Fever, Sweats Cardiovascular: Positive for: Chest Pain. Negative for: Palpitations Respiratory: Positive for: Cough, Shortness of Breath. Negative for: Sputum Gastrointestinal: Negative for: Nausea, Vomiting, Abdominal Pain, Diarrhea Genitourinary: Negative for: Dysuria Skin: Negative for: Rash Neurological: Negative for: Weakness, Numbness, Headache, Dizziness Physical Exam - Physical Exam Appears: Well, Non-toxic, No Acute Distress, Other (Mild dyspnea, but speaking in full sentences) Skin: Warm, Dry, No Diaphoretic Head: Normacephalic Eye(s): bilateral: Normal Inspection Oral Mucosa: Moist Neck: Supple Chest: Symmetrical Cardiovascular: Rhythm Irregular (occasionally irregular ), Other (Tachycardic) Respiratory: No Accessory Muscle Use, Rales (mild at bases B/L), Wheezing ( scattered expiratory wheezing bilaterally) Gastrointestinal/Abdominal: Normal Exam, Bowel Sounds, Soft, No Tenderness Back: Normal Inspection, No Vertebral Tenderness Extremity: Normal ROM, No Tenderness, No Calf Tenderness, Swelling (Trace pitting edema of the lower extremities) Pulses: Left Dorsalis Pedis: Normal, Right Dorsalis Pedis: Normal Neurological/Psych: Oriented x3, Normal Speech, Normal Cognition Gait: Steady ED Course And Treatment - Laboratory Results Result Diagrams: 12/26/17 06:38 12/26/17 06:38 ECG: Interpreted By Me, Viewed By Me ECG Rhythm: Sinus Tachycardia (at 111 bpm, with occasional PVCs, (+) L axis deviation, LBBB (seen on prior EKGs), ST depressions in leads v5 and v6, no ST elevations. No T wave changes) ECG Interpretation: Abnormal O2 Sat by Pulse Oximetry: 97 (NC) Pulse Ox Interpretation: Normal - Other Rad Chest X-Ray X-Ray: Read By Radiologist Interpretation: FINDINGS: LUNGS: Stable chronic prominence of the bilateral interstitial markings with superimposed pulmonary vascular congestion. Bibasilar atelectasis. PLEURA: Questionable small bilateral pleural effusions. CARDIOVASCULAR: Left subclavian access AICD/ pacemaker redemonstrated. Atherosclerotic aortic calcifications. Cardiomediastinal silhouette stably enlarged. OSSEOUS STRUCTURES: Unchanged. VISUALIZED UPPER ABDOMEN: Normal. OTHER FINDINGS: None. IMPRESSION: Stable chronic prominence of the bilateral interstitial markings with superimposed pulmonary vascular congestion. Questionable small bilateral pleural effusions. Progress Note: Blood work, EKG, chest x-ray ordered and reviewed. Patient given duoneb x1, 325 mg Aspirin PO, and 125 mg solu-medrol IV. IV lasix given for fluid overload/CHF. Reevaluation Time: 16:30 Reassessment Condition: Improved (Patent states she feels improved - on exam, she has decreased wheezing and improved air entry B/L, (+) mild rales at bases B /L.) - Physician Consult Information Time Consulting Physician Contacted: 16:40 Physician Contacted: Uriah Hernández Outcome Of Conversation: Discussed patient with PMD, agrees with admission for COPD and CHF exacerbation, dyspnea, chest pain Disposition Counseled Patient/Family Regarding: Studies Performed, Diagnosis - Disposition Disposition: HOSPITALIZED Disposition Time: 16:40 Condition: STABLE - Clinical Impression Clinical Impression: Chest pain, Dyspnea, CHF exacerbation, COPD exacerbation - Scribe Statement The provider has reviewed the documentation as recorded by the Keyona Steven Provider Attestation: All medical record entries made by the Hammadibashley were at my direction and personally dictated by me. I have reviewed the chart and agree that the record accurately reflects my personal performance of the history, physical exam, medical decision making, and the department course for this patient. I have also personally directed, reviewed, and agree with the discharge instructions and disposition. Decision To Admit - Pt Status Changed To: Hospital Disposition Of: Inpatient - Admit Certification Admit to Inpatient:: After my assessment, the patient will require hospitalization for at least two midnights. This is because of the severity of symptoms shown, intensity of services needed, and/or the medical risk in this patient being treated as an outpatient. - InPatient: Physician Admission Certification: I certify that this patient requires 2 or more midnights of care for the following reason:: Dyspnea, chest pain, exacerbation of COPD and CHF - . Bed Request Type: Telemetry Admitting Physician: Uriah Hernández Patient Diagnosis: Chest pain, Dyspnea, CHF exacerbation, COPD exacerbation
[2017-12-22] MEDS ORDERED: Albuterol-Ipratrop 3 mg / 0.5 (3 ml) UD INH STA (14:17)
[2017-12-22 14:20] LABS: BASO % 0.7 % (0.0-2.0); EOS # 0.1 K/uL (0.0-0.7); EOS % 2.1 % (0.0-4.0); HEMOGLOBIN 10.6 g/dL (11.0-16.0); LYMPH # 0.6 K/uL (1.0-4.3); LYMPH % 8.7 % (20.0-40.0); MEAN CELL VOLUME 80.7 fL (81.0-99.0); MEAN CORPUSCULAR HEMOGLOBIN 26.3 pg (27.0-31.0); MEAN CORPUSCULAR HGB CONC 32.6 g/dL (33.0-37.0); MEAN PLATELET VOLUME 10.9 fL (7.2-11.7); MONO # 0.6 K/uL (0.0-0.8); MONO % 9.3 % (0.0-10.0); NEUT % 79.2 % (50.0-75.0); RBC 4.01 Mil/uL (3.80-5.20)
[2017-12-22 14:26] LABS: INR 1.1; PROTHROMBIN TIME 12.3 SECONDS (9.7-12.2)
[2017-12-22] MEDS ORDERED: Albuterol-Ipratrop 3 mg / 0.5 (3 ml) UD ONE (14:29)
[2017-12-22 14:31] LABS: PLATELET COUNT 88 K/uL (130-400); WHITE BLOOD COUNT 6.4 K/uL (4.8-10.8)
[2017-12-22 14:52] LABS: CK-MB 1.57 ng/mL (0.0-3.38); TROPONIN I 0.027 ng/mL (0.00-0.120)
[2017-12-22 14:54] LABS: ALBUMIN 3.7 g/dL (3.5-5.0); CALCIUM 9.1 mg/dl (8.6-10.4)
[2017-12-22 15:01] LABS: ALB/GLOB RATIO 1.1 (1.0-2.1)
[2017-12-22 15:06] LABS: ANISOCYTOSIS SLIGHT; EOSINOPHIL 2 % (0-4); LYMPHOCYTE 5 % (20-40); MONOCYTE 1 % (0-10); NEUTROPHIL 92 % (50-75); PLATELET ESTIMATE DECREASED (NORMAL); TOTAL CELLS COUNTED 100
[2017-12-22 15:07] LABS: HYPOCHROMIC SLIGHT; MICROCYTOSIS SLIGHT; OVALOCYTES SLIGHT; POLYCHROMIC SLIGHT
[2017-12-22 15:27] LABS: GRANULAR CAST 3 /lpf (0-1); SQUAMOUS EPITHIAL 4 /hpf (0-5); URINE BILIRUBIN NEGATIVE (NEGATIVE); URINE BLOOD 2+ (NEGATIVE); URINE CLARITY Hazy (Clear); URINE COLOR Amber (YELLOW); URINE GLUCOSE (UA) 1+ mg/dL (Normal); URINE LEUKOCYTE ESTERASE 1+ Leu/uL (Negative); URINE PROTEIN 2+ mg/dL (NEGATIVE); URINE UROBILINOGEN NORMAL mg/dL (0.2-1.0)
--- NOTE | 2017-12-22 17:47 | CP.PCM.HP ---
History of Present Illness - History of Present Illness History of Present Illness: COMPREHENSIVE HISTORY & PHYSICAL EXAM HPI Patient was admitted from [facility] emergency room for acute shortness of breath and congestive heart failure. Patient has history of ischemic cardiomyopathy with left ventricle ejection fraction of 25-30% with coronary artery disease and stent. Apparently patient was seen outpatient a few days ago apparently in no distress or any symptoms. Prior to admission patient was started getting wheezing shortness of breath mild cough and the symptoms persisted at rest. Patient was evaluated in ER was found to have a high BNP CHF on chest x-ray and responded to IV Lasix. Recently patient was admitted in [facility] for similar complaints and also had received blood transfusion. Currently full detailed history and investigation done at [place] is not available. PAST HIST. History of type II diabetes. History of iron deficiency anemia requiring blood transfusion on previous admissions and iron therapy. COPD. PERSONAL HIST: Smoking. N Alcohol. N Allergy N Travel_- . FAMILY HIST : ROS : Constitutional: Negative for weight change, chills Eyes: Negative for redness, swelling, itching, discharge, vision changes, blurry vision, double vision, glaucoma, cataracts, Ears: Negative for hearing loss, ringing, , tinnitus, vertigo Nose: Negative for rhinorrhea, stuffiness, sniffing, itching, postnasal drip, discoloration, nasal congestion and epistaxis. Throat: Negative for throat clearing, sore throat, hoarseness, difficulty swallowing and difficulty speaking. Respiratory: Negative for cough, , sputum production, chest tightness, pleuritic chest pain ,daytime somnolence, chronic cough, hemoptysis, snoring at night, Cardiovascular: Negative for chest pain, Edema of legs, leg cramps, angina, claudication, , irregular heartbeat, Neurology: Negative for irritability, muscle weakness, numbness and tingling, seizures, tremors, migraines, slurred speech, syncope, memory loss, mood changes , recurrent headaches Gastrointestinal: Negative for difficulty swallowing, diarrhea, constipation, black stools, rectal bleeding, nausea, flatulence, reflux, poor appetite, changes in bowel habits, abdominal pain Genitourinary: Negative for frequent urination, hematuria, discharge, incontinence, urinary retention, frequent UTI, Psychiatric: Negative for depression, anxiety/panic, suicidal tendencies, Musculoskeletal: Negative for swollen joints, back pain, , neck pain, morning stiffness of joints, . Skin: Negative for rash, ulcers, itching, dry skin and pigmented lesions. P/E: Constitutional: Appears stated age and in no apparent distress. Head: Normocephalic. Ears: External ear canals patent without inflammation. Tympanic membranes intact with normal light reflex and landmark. Eyes: Pupils are central, bilaterally equal, symmetrical and reacts to light with normal movements and no icterus or pallor. Nose: External nares are patent. Mucosa is pink Mouth-Throat: Good general appearance and condition. No post-pharyngeal/oropharyngeal erythema and tonsillar hypertrophy. Good dental hygiene. Neck-Lymphatic: Neck is supple with normal ROM, no thyromegaly, lymph nodes or masses. JVD is normal with no carotid bruit. Lungs: Bilateral basal rales Cardiovascular: S1 and S2 are normal with no murmurs, gallops and rub. GI Exam: No hepatomegaly. Abdomen is soft and non-tender. No Organomegaly , masses or hernias are evident and bowel sounds are normal and active. Neurology: Higher function and all cranial nerves intact, with no gross motor or sensory deficit. Superficial and deep reflexes are normal with downwards planters. No cerebellar deficit with normal gait. Musculoskeletal: No tender spots with normal curvature of the spine with no swelling or restricted ROM of the small and large joints. Extremities: Homans sign absent. Intact pulses with no pitting edema, calf tenderness or skin color changes. Skin: No rash, eruptions or abnormal skin pigmentation LAB/RADIOLOGY: ASSESMENT : Acute on chronic systolic heart failure with reduced ejection fraction Coronary artery disease with 2 stents. Iron deficiency anemia. COPD PLAN: See orders Present on Admission - Present on Admission Any Indicators Present on Admission: No Past Patient History - Infectious Disease Hx of Infectious Diseases: None - Tetanus Immunizations Tetanus Immunization: Unknown - Past Medical History & Family History Past Medical History?: Yes - Past Social History Smoking Status: Never Smoked - CARDIAC Hx Cardia Arrhythmia: Yes Hx Congestive Heart Failure: Yes Hx Hypercholesterolemia: Yes Hx Hypertension: Yes Hx Pacemaker: Yes (2015) - PULMONARY Hx Asthma: Yes Hx Chronic Obstructive Pulmonary Disease (COPD): Yes - NEUROLOGICAL Hx Transient Ischemic Attacks (TIA): Yes - HEENT Hx HEENT Problems: No - RENAL Hx Chronic Kidney Disease: No - ENDOCRINE/METABOLIC Hx Diabetes Mellitus Type 2: Yes - HEMATOLOGICAL/ONCOLOGICAL Hx Anemia: Yes - INTEGUMENTARY Hx Dermatological Problems: No - MUSCULOSKELETAL/RHEUMATOLOGICAL Hx Arthritis: Yes (BACK AND KNEES AND R SHOULDER) - GASTROINTESTINAL Hx Gastrointestinal Disorders: No - GENITOURINARY/GYNECOLOGICAL Hx Genitourinary Disorders: No - PSYCHIATRIC Hx Anxiety: Yes Hx Substance Use: No - SURGICAL HISTORY Hx Appendectomy: Yes Hx Coronary Stent: Yes - ANESTHESIA Hx Anesthesia: Yes Hx Anesthesia Reactions: No Hx Malignant Hyperthermia: No Meds Allergies/Adverse Reactions: Allergies Allergy/AdvReac Type Severity Reaction Status Date / Time clopidogrel Allergy Mild SWELLING Verified 12/22/17 13:34 Results - Vital Signs Recent Vital Signs: Last Vital Signs Temp 98.4 F 12/22/17 13:33 Pulse 104 H 12/22/17 15:36 Resp 20 12/22/17 15:36 BP 141/61 12/22/17 15:36 Pulse Ox 97 12/22/17 16:15 - Labs Result Diagrams: 12/23/17 07:41 12/23/17 07:41 Labs: Laboratory Results - last 24 hr 12/22/17 12/22/17 12/22/17 14:03 14:06 14:06 WBC 6.4 D RBC 4.01 Hgb 10.6 L Hct 32.4 L MCV 80.7 L MCH 26.3 L MCHC 32.6 L RDW 22.0 H Plt Count 88 L D MPV 10.9 Neut % (Auto) 79.2 H Lymph % (Auto) 8.7 L [place] % (Auto) 9.3 Eos % (Auto) 2.1 Baso % (Auto) 0.7 Neut # (Auto) 5.0 Lymph # (Auto) 0.6 L [place] # (Auto) 0.6 Eos # (Auto) 0.1 Baso # (Auto) 0.0 Neutrophils % (Manual) 92 H Lymphocytes % (Manual) 5 L Monocytes % (Manual) 1 Eosinophils % (Manual) 2 Platelet Estimate Decreased L Polychromasia Slight Hypochromasia (manual) Slight Anisocytosis (manual) Slight Microcytosis (manual) Slight Ovalocytes Slight PT 12.3 H INR 1.1 APTT 33 Sodium Potassium Chloride Carbon Dioxide Anion Gap BUN Creatinine Est GFR ( Amer) Est GFR (Non-Af Amer) POC Glucose (mg/dL) 269 H Random Glucose Calcium Total Bilirubin AST ALT Alkaline Phosphatase Total Creatine Kinase CK-MB (Mass) Troponin I NT-Pro-B Natriuret Pep Total Protein Albumin Globulin Albumin/Globulin Ratio Urine Color Urine Clarity Urine pH Ur Specific [place] Urine Protein Urine Glucose (UA) Urine Ketones Urine Blood Urine Nitrate Urine Bilirubin Urine Urobilinogen Ur Leukocyte Esterase Urine WBC (Auto) Urine RBC (Auto) Ur Squamous Epith Cells Hyaline Casts Granular Casts (Auto) 12/22/17 12/22/17 14:06 15:11 WBC RBC Hgb Hct MCV MCH MCHC RDW Plt Count MPV Neut % (Auto) Lymph % (Auto) [place] % (Auto) Eos % (Auto) Baso % (Auto) Neut # (Auto) Lymph # (Auto) [place] # (Auto) Eos # (Auto) Baso # (Auto) Neutrophils % (Manual) Lymphocytes % (Manual) Monocytes % (Manual) Eosinophils % (Manual) Platelet Estimate Polychromasia Hypochromasia (manual) Anisocytosis (manual) Microcytosis (manual) Ovalocytes PT INR APTT Sodium 141 Potassium 5.1 Chloride 108 H Carbon Dioxide 22 Anion Gap 15 BUN 20 H Creatinine 1.4 H Est GFR ( Amer) 43 Est GFR (Non-Af Amer) 36 POC Glucose (mg/dL) Random Glucose 273 H Calcium 9.1 Total Bilirubin 0.6 AST 35 ALT 6 L D Alkaline Phosphatase 71 Total Creatine Kinase 71 CK-MB (Mass) 1.57 Troponin I 0.0270 NT-Pro-B Natriuret Pep 37781 H Total Protein 6.9 Albumin 3.7 Globulin 3.2 Albumin/Globulin Ratio 1.1 Urine Color [place] Urine Clarity Hazy Urine pH 5.0 Ur Specific [place] 1.023 Urine Protein 2+ H Urine Glucose (UA) 1+ Urine Ketones Negative Urine Blood 2+ H Urine Nitrate Negative Urine Bilirubin Negative Urine Urobilinogen Normal Ur Leukocyte Esterase 1+ H Urine WBC (Auto) 5 Urine RBC (Auto) 40 H Ur Squamous Epith Cells 4 Hyaline Casts 3-5 H Granular Casts (Auto) 3
[2017-12-22] MEDS: (Novolin R) Insulin Human Regular 100 units/ml vial SC SCH (21:31)
[2017-12-22] MEDS: (Lantus) Insulin Glargine, Recombinant SC SCH (21:34)
[2017-12-23] MEDS ORDERED: (Novolog Mix 70/30) Insulin Aspart/Insulin Aspar 100 units/ml SC ONE (02:25)
[2017-12-23 07:46] LABS: HEMOGLOBIN 10.4 g/dL (11.0-16.0); MEAN CELL VOLUME 81.4 fL (81.0-99.0); MEAN CORPUSCULAR HEMOGLOBIN 26.4 pg (27.0-31.0); MEAN CORPUSCULAR HGB CONC 32.4 g/dL (33.0-37.0); MEAN PLATELET VOLUME 11.7 fL (7.2-11.7); RBC 3.95 Mil/uL (3.80-5.20); RED CELL DISTRIBUTION WIDTH 22.1 % (11.5-14.5); WHITE BLOOD COUNT 8.3 K/uL (4.8-10.8)
[2017-12-23 08:00] LABS: ALB/GLOB RATIO 1.2 (1.0-2.1); ALBUMIN 3.3 g/dL (3.5-5.0); CALCIUM 9.3 mg/dl (8.6-10.4)
[2017-12-23] MEDS ORDERED: Aspirin 325 mg EC Tablets PO SCH (10:00)
[2017-12-23] MEDS: (Novolin R) Insulin Human Regular 100 units/ml vial SC SCH ×4 (10:05→21:20)
[2017-12-23] MEDS: Sacubitril/Valsartan 24-26mg Tab PO SCH (10:10)
[2017-12-23] MEDS: Ranolazine 500 mg Extended Release Tablets PO SCH ×2 (10:10→18:04)
--- NOTE | 2017-12-23 14:07 | CP.PCM.PN ---
Subjective - Date & Time of Evaluation Date of Evaluation: 12/23/17 Time of Evaluation: 14:04 - Subjective Subjective: CHIEF COMPLAINTS TODAY : Patient has mild cough wheezing and shortness of breath. No chest pain Cardiac enzymes so far negative ROS. HEENT : N. Resp : No,pleuritic CP ,or hemoptysis Cardio : No anginal CP, , palpitation GI : No abd.pain, n/v ,diarrhea or GI bleeding . 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 Musculoskel : No joint swelling , Derm : No rash Psych : Normal affect. Ext : No swelling ,calf pain PE. Pt. is alert awake in no distress. V.S As noted in the chart Head ,ear nose,throat and eyes : Normal. Neck : Supple with normal carotids. Lungs: Bilateral rales Heart : S1 & S2 normal with S4. No murmur. Abd : Soft non tender with normal bowel sounds. Neuro : Moves all ext. with no localized deficit. Ext : No edema with intact pulses.Non tender calves Derm : No rashes or decubitus ulcer. LABS/RADIOLOGY: ASSESSMENT/PLAN : Congestive heart failure responding to IV Lasix. Etiology of precipitating factors for CHF is unclear could be ischemia. Creatinine is 1.6, defer cardiac catheterization Continue antianginal and cardiomyopathy medication and anticoagulation. Discussed with the family Objective - Vital Signs/Intake and Output Vital Signs (last 24 hours): Temp Pulse Resp BP Pulse Ox 97.6 F 95 H 20 114/49 L 99 12/23/17 07:42 12/23/17 10:07 12/23/17 10:07 12/23/17 10:09 12/23/17 10:07 Intake and Output: 12/23/17 12/23/17 11:59 23:59 Intake Total 240 Balance 240 - Medications Medications: Current Medications Aspirin (Ecotrin) 325 mg PO DAILY [facility] Last Admin: 12/23/17 10:10 Dose: 325 mg Ergocalciferol (Drisdol 50,000 Intl Units Cap) 1 cap PO QWK JONNA Furosemide (Lasix) 40 mg IVP DAILY [facility] Insulin Glargine (Lantus) 20 unit SC HS [facility] Last Admin: 12/22/17 21:34 Dose: 20 u Insulin Human Regular (Novolin R) 0 unit SC ACHS [facility] PRN Reason: Protocol Last Admin: 12/23/17 13:08 Dose: 8 u Metoprolol Tartrate (Lopressor) 25 mg PO BID [facility] Last Admin: 12/23/17 10:23 Dose: Not Given Nitroglycerin (Nitrostat Sl Tab) 0.6 mg SL Q5MIN PRN PRN Reason: CHEST PAIN Ranolazine (Ranexa) 500 mg PO BID [facility] Last Admin: 12/23/17 10:10 Dose: 500 mg Repaglinide (Prandin) 2 mg PO DAILY [facility] Last Admin: 12/23/17 10:10 Dose: 2 mg Rosuvastatin Calcium (Crestor) 20 mg PO HS [facility] Last Admin: 12/22/17 21:27 Dose: 20 mg Sacubitril/Valsartan (Entresto 24 Mg-26 Mg) 1 tab PO DAILY [facility] Last Admin: 12/23/17 10:10 Dose: 1 tab Ticagrelor (Brilinta) 90 mg PO QOD6 [facility] - Labs Labs: 12/23/17 07:41 12/23/17 07:41 PT 12.3 SECONDS (9.7-12.2) H 12/22/17 14:06 INR 1.1 12/22/17 14:06 APTT 33 SECONDS (21-34) 12/22/17 14:06
--- NOTE | 2017-12-23 19:57 | CARD ---
APPROVED REPORT EKG Measurement Heart [id number] <Conclusion> Sinus tachycardia with frequent premature atrial and ventricular complexes Possible Left atrial enlargement Incomplete LBBB Abnormal ECG
[2017-12-23] MEDS: (Lantus) Insulin Glargine, Recombinant SC SCH (22:21)
[2017-12-24] MEDS: Albuterol-Ipratrop 3 mg / 0.5 (3 ml) UD INH SCH ×4 (01:39→20:25)
[2017-12-24 06:06] LABS: BASO % 0.2 % (0.0-2.0); EOS # 0.2 K/uL (0.0-0.7); EOS % 2.4 % (0.0-4.0); HEMOGLOBIN 9.8 g/dL (11.0-16.0); LYMPH % 10.8 % (20.0-40.0); MEAN CELL VOLUME 79.6 fL (81.0-99.0); MEAN CORPUSCULAR HEMOGLOBIN 26.4 pg (27.0-31.0); MEAN CORPUSCULAR HGB CONC 33.2 g/dL (33.0-37.0); MEAN PLATELET VOLUME 11.2 fL (7.2-11.7); MONO # 0.8 K/uL (0.0-0.8); MONO % 8.2 % (0.0-10.0); NEUT # 7.6 K/uL (1.8-7.0); NEUT % 78.4 % (50.0-75.0); RBC 3.72 Mil/uL (3.80-5.20); RED CELL DISTRIBUTION WIDTH 22.8 % (11.5-14.5); WHITE BLOOD COUNT 9.6 K/uL (4.8-10.8)
[2017-12-24 07:46] LABS: ALB/GLOB RATIO 1.1 (1.0-2.1); ALBUMIN 2.8 g/dL (3.5-5.0); ALT/SGPT 11 U/L (9-52); AST/SGOT 27 U/L (14-36); BLOOD UREA NITROGEN 35 mg/dL (7-17); CALCIUM 8.8 mg/dl (8.6-10.4); GFR AFRICAN-AMERICAN 34; GFR NON-AFRICAN AMERICAN 28
[2017-12-24] MEDS: (Novolin R) Insulin Human Regular 100 units/ml vial SC SCH ×4 (08:01→22:04)
[2017-12-24] MEDS: Sacubitril/Valsartan 24-26mg Tab PO SCH (10:29)
[2017-12-24] MEDS: Ranolazine 500 mg Extended Release Tablets PO SCH ×2 (10:29→18:00)
--- NOTE | 2017-12-24 13:58 | CP.PCM.PN ---
Subjective - Date & Time of Evaluation Date of Evaluation: 12/24/17 Time of Evaluation: 13:56 - Subjective Subjective: CHIEF COMPLAINTS TODAY : Patient has mild cough wheezing and shortness of breath. No chest pain Cardiac enzymes so far negative ROS. HEENT : N. Resp : No,pleuritic CP ,or hemoptysis Cardio : No anginal CP, , palpitation GI : No abd.pain, n/v ,diarrhea or GI bleeding . 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 Musculoskel : No joint swelling , Derm : No rash Psych : Normal affect. Ext : No swelling ,calf pain PE. Pt. is alert awake in no distress. V.S As noted in the chart Head ,ear nose,throat and eyes : Normal. Neck : Supple with normal carotids. Lungs: Bilateral rales Heart : S1 & S2 normal with S4. No murmur. Abd : Soft non tender with normal bowel sounds. Neuro : Moves all ext. with no localized deficit. Ext : No edema with intact pulses.Non tender calves Derm : No rashes or decubitus ulcer. LABS/RADIOLOGY: ASSESSMENT/PLAN : Patient is improving on IV Lasix. There is no any further chest pain decreased shortness of breath. Creatinine is 1.7, cardiac catheterization is not an option currently. Hemoglobin is stable. Objective - Vital Signs/Intake and Output Vital Signs (last 24 hours): Temp Pulse Resp BP Pulse Ox 97.5 F L 81 20 120/73 100 12/24/17 08:00 12/24/17 08:00 12/24/17 08:00 12/24/17 10:29 12/24/17 08:00 - Medications Medications: Current Medications Albuterol/Ipratropium (Duoneb 3 Mg/0.5 Mg (3 Ml) Ud) 3 ml INH RQ6 [facility] Last Admin: 12/24/17 13:12 Dose: 3 ml Aspirin (Ecotrin) 81 mg PO DAILY [facility] Last Admin: 12/24/17 10:29 Dose: 81 mg Cyproheptadine HCl (Periactin) 4 mg PO TID [facility] Last Admin: 12/24/17 10:29 Dose: 4 mg Ergocalciferol (Drisdol 50,000 Intl Units Cap) 1 cap PO QWK [facility] Furosemide (Lasix) 40 mg IVP DAILY [facility] Last Admin: 12/24/17 10:29 Dose: 40 mg Insulin Glargine (Lantus) 20 unit SC HS [facility] Last Admin: 12/23/17 22:21 Dose: Not Given Insulin Human Regular (Novolin R) 0 unit SC ACHS [facility] PRN Reason: Protocol Last Admin: 12/24/17 08:01 Dose: Not Given Metoprolol Tartrate (Lopressor) 25 mg PO BID [facility] Last Admin: 12/24/17 10:29 Dose: 25 mg Nitroglycerin (Nitrostat Sl Tab) 0.6 mg SL Q5MIN PRN PRN Reason: CHEST PAIN Ranolazine (Ranexa) 500 mg PO BID [facility] Last Admin: 12/24/17 10:29 Dose: 500 mg Repaglinide (Prandin) 2 mg PO DAILY [facility] Last Admin: 12/24/17 10:28 Dose: 2 mg Rosuvastatin Calcium (Crestor) 20 mg PO HS [facility] Last Admin: 12/23/17 21:36 Dose: 20 mg Sacubitril/Valsartan (Entresto 24 Mg-26 Mg) 1 tab PO DAILY [facility] Last Admin: 12/24/17 10:29 Dose: 1 tab Ticagrelor (Brilinta) 60 mg PO BID [facility] Last Admin: 12/24/17 10:28 Dose: 60 mg - Labs Labs: 12/24/17 05:58 12/24/17 05:58 PT 12.3 SECONDS (9.7-12.2) H 12/22/17 14:06 INR 1.1 12/22/17 14:06 APTT 33 SECONDS (21-34) 12/22/17 14:06
[2017-12-24] MEDS: (Lantus) Insulin Glargine, Recombinant SC SCH (22:06)
[2017-12-25] MEDS: Albuterol-Ipratrop 3 mg / 0.5 (3 ml) UD INH SCH ×4 (01:37→19:00)
[2017-12-25] MEDS: (Novolin R) Insulin Human Regular 100 units/ml vial SC SCH ×4 (08:09→22:18)
[2017-12-25 08:48] LABS: BASO # 0.1 K/uL (0.0-0.2); BASO % 0.7 % (0.0-2.0); EOS # 0.4 K/uL (0.0-0.7); EOS % 5.3 % (0.0-4.0); HEMOGLOBIN 10.5 g/dL (11.0-16.0); LYMPH # 1.1 K/uL (1.0-4.3); LYMPH % 14.5 % (20.0-40.0); MEAN CELL VOLUME 80.2 fL (81.0-99.0); MEAN CORPUSCULAR HEMOGLOBIN 26.3 pg (27.0-31.0); MEAN CORPUSCULAR HGB CONC 32.9 g/dL (33.0-37.0); MEAN PLATELET VOLUME 11.6 fL (7.2-11.7); MONO # 0.8 K/uL (0.0-0.8); MONO % 10.1 % (0.0-10.0); NEUT # 5.4 K/uL (1.8-7.0); NEUT % 69.4 % (50.0-75.0); NRBC % 0.1 % (0.0-2.0); RED CELL DISTRIBUTION WIDTH 22.8 % (11.5-14.5); WHITE BLOOD COUNT 7.8 K/uL (4.8-10.8)
[2017-12-25 09:17] LABS: ALBUMIN 2.8 g/dL (3.5-5.0); ALT/SGPT 20 U/L (9-52); AST/SGOT 28 U/L (14-36); BLOOD UREA NITROGEN 40 mg/dL (7-17); CALCIUM 8.7 mg/dl (8.6-10.4); GFR AFRICAN-AMERICAN 32; GFR NON-AFRICAN AMERICAN 27
[2017-12-25] MEDS: Ranolazine 500 mg Extended Release Tablets PO SCH ×2 (10:46→17:25)
[2017-12-25] MEDS: Sacubitril/Valsartan 24-26mg Tab PO SCH (10:47)
--- NOTE | 2017-12-25 14:41 | CP.PCM.PN ---
Subjective - Date & Time of Evaluation Date of Evaluation: 12/25/17 Time of Evaluation: 14:41 - Subjective Subjective: CHIEF COMPLAINTS TODAY : Patient has mild cough wheezing and shortness of breath. No chest pain Cardiac enzymes so far negative ROS. HEENT : N. Resp : No,pleuritic CP ,or hemoptysis Cardio : No anginal CP, , palpitation GI : No abd.pain, n/v ,diarrhea or GI bleeding . [employer] : No headache, vertigo, focal deficit. Musculoskel : No joint swelling , Derm : No rash Psych : Normal affect. Ext : No swelling ,calf pain PE. Pt. is alert awake in no distress. V.S As noted in the chart Head ,ear nose,throat and eyes : Normal. Neck : Supple with normal carotids. Lungs: Bilateral rales Heart : S1 & S2 normal with S4. No murmur. Abd : Soft non tender with normal bowel sounds. Neuro : Moves all ext. with no localized deficit. Ext : No edema with intact pulses.Non tender calves Derm : No rashes or decubitus ulcer. LABS/RADIOLOGY: ASSESSMENT/PLAN : Patient is improving on IV Lasix. There is no any further chest pain decreased shortness of breath. Creatinine is 1.8, cardiac catheterization is not an option currently. Hemoglobin is stable. Objective - Vital Signs/Intake and Output Vital Signs (last 24 hours): Temp Pulse Resp BP Pulse Ox 97.8 F 96 H 18 98/52 L 100 12/25/17 07:00 12/25/17 10:43 12/25/17 07:00 12/25/17 10:43 12/25/17 07:00 - Medications Medications: Current Medications Albuterol/Ipratropium (Duoneb 3 Mg/0.5 Mg (3 Ml) Ud) 3 ml INH RQ6 [facility] Last Admin: 12/25/17 14:08 Dose: 3 ml Aspirin (Ecotrin) 81 mg PO DAILY [facility] Last Admin: 12/25/17 10:46 Dose: 81 mg Cyproheptadine HCl (Periactin) 4 mg PO TID [facility] Last Admin: 12/25/17 13:06 Dose: 4 mg Ergocalciferol (Drisdol 50,000 Intl Units Cap) 1 cap PO QWK [facility] Furosemide (Lasix) 40 mg IVP DAILY [facility] Last Admin: 12/25/17 10:51 Dose: Not Given Insulin Glargine (Lantus) 20 unit SC HS [facility] Last Admin: 12/24/17 22:06 Dose: 20 u Insulin Human Regular (Novolin R) 0 unit SC [facility] PRN Reason: Protocol Last Admin: 12/25/17 12:35 Dose: 3 u Metoprolol Tartrate (Lopressor) 25 mg PO BID [facility] Last Admin: 12/25/17 10:50 Dose: Not Given Nitroglycerin (Nitrostat Sl Tab) 0.6 mg SL Q5MIN PRN PRN Reason: CHEST PAIN Ranolazine (Ranexa) 500 mg PO BID [facility] Last Admin: 12/25/17 10:46 Dose: 500 mg Repaglinide (Prandin) 2 mg PO DAILY [facility] Last Admin: 12/25/17 10:48 Dose: 2 mg Rosuvastatin Calcium (Crestor) 20 mg PO HS [facility] Last Admin: 12/24/17 22:07 Dose: 20 mg Sacubitril/Valsartan (Entresto 24 Mg-26 Mg) 1 tab PO DAILY [facility] Last Admin: 12/25/17 10:47 Dose: 1 tab Ticagrelor (Brilinta) 60 mg PO BID [facility] Last Admin: 12/25/17 11:15 Dose: 60 mg - Labs Labs: 12/25/17 08:31 12/25/17 08:31 PT 12.3 SECONDS (9.7-12.2) H 12/22/17 14:06 INR 1.1 12/22/17 14:06 APTT 33 SECONDS (21-34) 12/22/17 14:06
[2017-12-25] MEDS ORDERED: Sodium Chloride 0.9% 250 ML IV ONE (16:09)
--- NOTE | 2017-12-25 16:20 | CP.PCM.PN ---
Subjective - Date & Time of Evaluation Date of Evaluation: 12/25/17 Time of Evaluation: 16:00 - Subjective Subjective: CC- hypotenstion RN called to evaluate pt bp low =- 74/43 Patient seen and examined at bed side awake alert, oriented, denies any chest pain, sob, dizziness, palpitations, N/V bp re checked - 83/47. hr - 105 , repeat 73/43 again as per RN pt hasn't received any lasix or bp meds this am Objective - Vital Signs/Intake and Output Vital Signs (last 24 hours): Temp Pulse Resp BP Pulse Ox 97.8 F 96 H 18 98/52 L 100 12/25/17 07:00 12/25/17 10:43 12/25/17 07:00 12/25/17 10:43 12/25/17 07:00 Intake and Output: 12/25/17 12/25/17 06:59 18:59 Intake Total 300 400 Balance 300 400 - Medications Medications: Current Medications Albuterol/Ipratropium (Duoneb 3 Mg/0.5 Mg (3 Ml) Ud) 3 ml INH RQ6 [facility] Last Admin: 12/25/17 14:08 Dose: 3 ml Aspirin (Ecotrin) 81 mg PO DAILY [facility] Last Admin: 12/25/17 10:46 Dose: 81 mg Cyproheptadine HCl (Periactin) 4 mg PO TID [facility] Last Admin: 12/25/17 13:06 Dose: 4 mg Ergocalciferol (Drisdol 50,000 Intl Units Cap) 1 cap PO QWK [facility] Furosemide (Lasix) 40 mg IVP DAILY [facility] Last Admin: 12/25/17 10:51 Dose: Not Given Sodium Chloride (Sodium Chloride 0.9%) 250 mls @ 250 mls/hr IV .Q1H ONE Stop: 12/25/17 17:08 Last Admin: 12/25/17 16:13 Dose: 250 mls/hr Insulin Glargine (Lantus) 20 unit SC HS [facility] Last Admin: 12/24/17 22:06 Dose: 20 u Insulin Human Regular (Novolin R) 0 unit SC ACHS [facility] PRN Reason: Protocol Last Admin: 12/25/17 12:35 Dose: 3 u Metoprolol Tartrate (Lopressor) 25 mg PO BID [facility] Last Admin: 12/25/17 10:50 Dose: Not Given Nitroglycerin (Nitrostat Sl Tab) 0.6 mg SL Q5MIN PRN PRN Reason: CHEST PAIN Ranolazine (Ranexa) 500 mg PO BID [facility] Last Admin: 12/25/17 10:46 Dose: 500 mg Repaglinide (Prandin) 2 mg PO DAILY [facility] Last Admin: 12/25/17 10:48 Dose: 2 mg Rosuvastatin Calcium (Crestor) 20 mg PO HS [facility] Last Admin: 12/24/17 22:07 Dose: 20 mg Sacubitril/Valsartan (Entresto 24 Mg-26 Mg) 1 tab PO DAILY [facility] Last Admin: 12/25/17 10:47 Dose: 1 tab Ticagrelor (Brilinta) 60 mg PO BID [facility] Last Admin: 12/25/17 11:15 Dose: 60 mg - Labs Labs: 12/25/17 08:31 12/25/17 08:31 PT 12.3 SECONDS (9.7-12.2) H 12/22/17 14:06 INR 1.1 12/22/17 14:06 APTT 33 SECONDS (21-34) 12/22/17 14:06 - Constitutional Appears: Well, No Acute Distress - Respiratory Exam Respiratory Exam: Clear to Ausculation Bilateral, NORMAL BREATHING PATTERN - Cardiovascular Exam Cardiovascular Exam: Tachycardia, Irregular Rhythm, +S1, +S2 - Neurological Exam Neurological Exam: Alert, Awake, Oriented x3 Assessment and Plan - Assessment and Plan (Free Text) Assessment: A/P 87 yr old female with pmhx Asthma, Cardiac Arrhythmia, CHF, COPD, Diabetes, HTN , Hypercholesterolemia, admitted with chest pIN/ SOB/ EXC. CHF now with hypotension Patient asymptomatic possible dehydration - will give 250 NSS x1 and repeat bp after bolus and will repeat EKG BP IMPROVED AFTER BOLUS 90/45 will continue to monitor the above plan discussed with Dr. Hernández and Dr. Hernández will come and evaluate the patient
[2017-12-25] MEDS: (Lantus) Insulin Glargine, Recombinant SC SCH (22:16)
[2017-12-26] MEDS: Albuterol-Ipratrop 3 mg / 0.5 (3 ml) UD INH SCH ×4 (01:26→19:10)
[2017-12-26] MEDS: (Novolin R) Insulin Human Regular 100 units/ml vial SC SCH ×4 (08:04→21:11)
[2017-12-26 08:14] LABS: BASO % 0.6 % (0.0-2.0); EOS # 0.3 K/uL (0.0-0.7); EOS % 4.3 % (0.0-4.0); HEMOGLOBIN 10.2 g/dL (11.0-16.0); LYMPH # 0.8 K/uL (1.0-4.3); LYMPH % 10.7 % (20.0-40.0); MEAN CORPUSCULAR HEMOGLOBIN 26.7 pg (27.0-31.0); MEAN CORPUSCULAR HGB CONC 33.4 g/dL (33.0-37.0); MEAN PLATELET VOLUME 11.5 fL (7.2-11.7); MONO # 0.8 K/uL (0.0-0.8); MONO % 10.7 % (0.0-10.0); NEUT # 5.2 K/uL (1.8-7.0); NEUT % 73.7 % (50.0-75.0); RBC 3.83 Mil/uL (3.80-5.20); RED CELL DISTRIBUTION WIDTH 22.4 % (11.5-14.5)
[2017-12-26 08:25] LABS: ALB/GLOB RATIO 1.3 (1.0-2.1); ALBUMIN 3.3 g/dL (3.5-5.0); CALCIUM 8.8 mg/dl (8.6-10.4)
[2017-12-26] MEDS: Ranolazine 500 mg Extended Release Tablets PO SCH ×2 (10:29→17:44)
[2017-12-26] MEDS: Sacubitril/Valsartan 24-26mg Tab PO SCH (10:30)
--- NOTE | 2017-12-26 15:27 | CP.PCM.PN ---
Subjective - Date & Time of Evaluation Date of Evaluation: 12/26/17 Time of Evaluation: 15:24 - Subjective Subjective: Patient's blood pressure is fluctuating between 95-100 systolic with atrial fibrillation with moderate ventricular rate Currently patient has only wheezing scattered rales. BUN and creatinine is trending up, creatinine of 1.9, BUN of 46. We will decrease the Lasix to 20 mg by mouth daily. Other afterload reducing agents are on hold due to low blood pressure. Septic workup done Discussed with the on the phone. Objective - Vital Signs/Intake and Output Vital Signs (last 24 hours): Temp Pulse Resp BP Pulse Ox 97.7 F 96 H 20 96/59 L 97 12/26/17 07:35 12/26/17 07:35 12/26/17 07:35 12/26/17 10:31 12/26/17 12:44 - Medications Medications: Current Medications Albuterol/Ipratropium (Duoneb 3 Mg/0.5 Mg (3 Ml) Ud) 3 ml INH RQ6 [facility] Last Admin: 12/26/17 13:02 Dose: Not Given Aspirin (Ecotrin) 81 mg PO DAILY [facility] Last Admin: 12/26/17 10:29 Dose: 81 mg Cyproheptadine HCl (Periactin) 4 mg PO TID [facility] Last Admin: 12/26/17 13:29 Dose: 4 mg Ergocalciferol (Drisdol 50,000 Intl Units Cap) 1 cap PO QWK [facility] Famotidine (Pepcid) 20 mg PO DAILY [facility] Last Admin: 12/26/17 10:29 Dose: 20 mg Furosemide (Lasix) 20 mg PO DAILY [facility] Insulin Glargine (Lantus) 20 unit SC HS [facility] Last Admin: 12/25/17 22:16 Dose: 20 u Insulin Human Regular (Novolin R) 0 unit SC ACHS [facility] PRN Reason: Protocol Last Admin: 12/26/17 12:54 Dose: Not Given Metoprolol Tartrate (Lopressor) 25 mg PO BID [facility] Last Admin: 12/26/17 10:31 Dose: Not Given Nitroglycerin (Nitrostat Sl Tab) 0.6 mg SL Q5MIN PRN PRN Reason: CHEST PAIN Ranolazine (Ranexa) 500 mg PO BID [facility] Last Admin: 12/26/17 10:29 Dose: 500 mg Repaglinide (Prandin) 2 mg PO DAILY [facility] Last Admin: 12/26/17 10:29 Dose: 2 mg Rosuvastatin Calcium (Crestor) 20 mg PO HS [facility] Last Admin: 12/25/17 22:16 Dose: 20 mg Sacubitril/Valsartan (Entresto 24 Mg-26 Mg) 1 tab PO DAILY [facility] Last Admin: 12/26/17 10:30 Dose: Not Given Ticagrelor (Brilinta) 60 mg PO BID [facility] Last Admin: 12/26/17 10:29 Dose: 60 mg - Labs Labs: 12/26/17 06:38 12/26/17 06:38 PT 12.3 SECONDS (9.7-12.2) H 12/22/17 14:06 INR 1.1 12/22/17 14:06 APTT 33 SECONDS (21-34) 12/22/17 14:06
[2017-12-26] MEDS: (Lantus) Insulin Glargine, Recombinant SC SCH (21:11)
[2017-12-27 00:45] VITALS: RESP 20
[2017-12-27] MEDS: Albuterol-Ipratrop 3 mg / 0.5 (3 ml) UD INH SCH ×4 (01:23→19:58)
[2017-12-27 06:55] LABS: BASO % 0.6 % (0.0-2.0); EOS # 0.3 K/uL (0.0-0.7); EOS % 4.9 % (0.0-4.0); HEMOGLOBIN 9.8 g/dL (11.0-16.0); LYMPH # 0.7 K/uL (1.0-4.3); LYMPH % 10.4 % (20.0-40.0); MEAN CELL VOLUME 80.9 fL (81.0-99.0); MEAN CORPUSCULAR HEMOGLOBIN 26.1 pg (27.0-31.0); MEAN CORPUSCULAR HGB CONC 32.2 g/dL (33.0-37.0); MEAN PLATELET VOLUME 11.2 fL (7.2-11.7); MONO # 0.8 K/uL (0.0-0.8); MONO % 10.8 % (0.0-10.0); NEUT # 5.2 K/uL (1.8-7.0); NEUT % 73.3 % (50.0-75.0); NRBC % 0.1 % (0.0-2.0); RBC 3.74 Mil/uL (3.80-5.20); RED CELL DISTRIBUTION WIDTH 22.2 % (11.5-14.5); WHITE BLOOD COUNT 7.1 K/uL (4.8-10.8)
[2017-12-27 07:07] LABS: ALBUMIN 3.2 g/dL (3.5-5.0); CALCIUM 8.7 mg/dl (8.6-10.4)
[2017-12-27] MEDS: (Novolin R) Insulin Human Regular 100 units/ml vial SC SCH ×4 (08:43→21:38)
[2017-12-27] MEDS: Ranolazine 500 mg Extended Release Tablets PO SCH ×2 (10:40→18:55)
[2017-12-27] MEDS: Sacubitril/Valsartan 24-26mg Tab PO SCH (10:45)
--- NOTE | 2017-12-27 14:38 | CP.PCM.PN ---
Subjective - Date & Time of Evaluation Date of Evaluation: 12/27/17 Time of Evaluation: 14:35 - Subjective Subjective: AFEBRILE BP STABLE , OCCASIONALLY LOW SYSTOLIC 90'S LUNGS RONCHI HEART BAUDILIO IN LLSB 2 EXT NO EDEMA URINE ,GROUP B STREP. B PLAN ID EVAL CONT LASIX Objective - Vital Signs/Intake and Output Vital Signs (last 24 hours): Temp Pulse Resp BP Pulse Ox 97.8 F 95 H 20 99/55 L 100 12/27/17 07:30 12/27/17 13:44 12/27/17 07:30 12/27/17 13:44 12/27/17 07:30 - Medications Medications: Current Medications Albuterol/Ipratropium (Duoneb 3 Mg/0.5 Mg (3 Ml) Ud) 3 ml INH RQ6 [facility] Last Admin: 12/27/17 13:34 Dose: 3 ml Aspirin (Ecotrin) 81 mg PO DAILY [facility] Last Admin: 12/27/17 10:40 Dose: 81 mg Cyproheptadine HCl (Periactin) 4 mg PO TID [facility] Last Admin: 12/27/17 13:46 Dose: 4 mg Ergocalciferol (Drisdol 50,000 Intl Units Cap) 1 cap PO QWK [facility] Famotidine (Pepcid) 20 mg PO DAILY [facility] Last Admin: 12/27/17 10:40 Dose: 20 mg Furosemide (Lasix) 20 mg PO DAILY [facility] Insulin Glargine (Lantus) 20 unit SC [facility] Last Admin: 12/26/17 21:11 Dose: Not Given Insulin Human Regular (Novolin R) 0 unit SC [facility] PRN Reason: Protocol Last Admin: 12/27/17 12:41 Dose: 2 u Metoprolol Tartrate (Lopressor) 25 mg PO BID [facility] Last Admin: 12/27/17 10:41 Dose: 25 mg Nitroglycerin (Nitrostat Sl Tab) 0.6 mg SL Q5MIN PRN PRN Reason: CHEST PAIN Ranolazine (Ranexa) 500 mg PO BID [facility] Last Admin: 12/27/17 10:40 Dose: 500 mg Repaglinide (Prandin) 2 mg PO DAILY [facility] Last Admin: 12/27/17 10:40 Dose: 2 mg Rosuvastatin Calcium (Crestor) 20 mg PO HS [facility] Last Admin: 12/26/17 21:10 Dose: 20 mg Sacubitril/Valsartan (Entresto 24 Mg-26 Mg) 1 tab PO DAILY [facility] Last Admin: 12/27/17 10:45 Dose: Not Given Ticagrelor (Brilinta) 60 mg PO BID [facility] Last Admin: 12/27/17 10:40 Dose: 60 mg - Labs Labs: 12/27/17 06:48 12/27/17 06:48 PT 12.3 SECONDS (9.7-12.2) H 12/22/17 14:06 INR 1.1 12/22/17 14:06 APTT 33 SECONDS (21-34) 12/22/17 14:06
--- NOTE | 2017-12-27 16:37 | CP.PCM.CON ---
History of Present Illness - History of Present Illness History of Present Illness: INFECTIOUS DISEASE CONSULT; HPI; 87-year-old female, with multiple medical problems including asthma, CHF, COPD, diabetes, HTN hypercholesterolemia and history of TIA in the past who was admitted to [facility] via emergency room because of acute shortness of breath and congestive heart failure. Patient responded to IV Lasix and she was found to have high BNP AND CHF on chest x-ray. Patient remained hypotensive during the hospitalization and tachycardic. So septic workup was done. Patient was found to have a positive urine culture for beta-hemolytic strep group B. Infectious disease consultation was requested by PMD for appropriate therapy and further workup. Patient denies any abdominal pain or lower pelvic discomfort. Complains of frequency of urination but denies any hematuria. Patient also reported that she was recently hospitalized in [place] for CHF and received blood transfusion. PMH: Anemia, Anxiety, Arthritis (BACK AND KNEES AND R SHOULDER), Asthma, Cardia Arrhythmia, CHF, COPD, Diabetes, HTN, Hypercholesterolemia, TIA Surgical History: Appendectomy, Coronary Stent, Endoscopy, Pacemaker (2015) - Smart Balloon Procedures ASSISTANCE WITH RESPIRATORY VENTILATION, 24-96 HRS, CPAP (06/15/17) ASSISTANCE WITH RESPIRATORY VENTILATION, <24 HRS, CPAP (02/06/16) ESOPHAGOGASTRODUODENOSCOPY [EGD] W/CLOSED BIOPSY (12/30/14) LEFT HEART CARDIAC CATH (10/19/13) LT HEART ANGIOCARDIOGRAM (10/19/13) MEASURE OF CARDIAC SAMPL & PRESSURE, L HEART, PERC APPROACH (05/21/15) PACKED CELL TRANSFUSION (12/30/14) PLAIN RADIOGRAPHY OF MULT COR ART USING OTH CONTRAST (05/21/15) TRANSFUSE NONAUT RED BLOOD CELLS IN PERIPH VEIN, PERC (02/06/16) Family History: States: No Known Family Hx - Social History Hx Tobacco Use: No Hx Alcohol Use: No Hx Substance Use: No - Immunization History Hx Tetanus Toxoid Vaccination: No Hx Influenza Vaccination: Yes Hx Pneumococcal Vaccination: Yes Review of Systems - Constitutional Constitutional: absent: Chills, Fever - EENT Eyes: absent: Change in Vision Nose/Mouth/Throat: absent: Mouth Lesions, Sore Throat - Cardiovascular Cardiovascular: Dyspnea on Exertion. absent: Chest Pain - Respiratory Respiratory: Cough, Wheezing - Gastrointestinal Gastrointestinal: absent: Abdominal Pain - Genitourinary Genitourinary: Urinary Frequency. absent: Difficulty Urinating, Dysuria - Neurological Neurological: absent: Headaches - Hematologic/Lymphatic Hematologic: As Per HPI. absent: Easy Bleeding, Easy Bruising Past Patient History - Infectious Disease Hx of Infectious Diseases: None - Tetanus Immunizations Tetanus Immunization: Unknown - Past Medical History & Family History Past Medical History?: Yes - Past Social History Smoking Status: Never Smoked - CARDIAC Hx Cardia Arrhythmia: Yes Hx Congestive Heart Failure: Yes Hx Hypercholesterolemia: Yes Hx Hypertension: Yes Hx Pacemaker: Yes (2015) - PULMONARY Hx Asthma: Yes Hx Chronic Obstructive Pulmonary Disease (COPD): Yes - NEUROLOGICAL Hx Transient Ischemic Attacks (TIA): Yes - HEENT Hx HEENT Problems: No - RENAL Hx Chronic Kidney Disease: No - ENDOCRINE/METABOLIC Hx Diabetes Mellitus Type 2: Yes - HEMATOLOGICAL/ONCOLOGICAL Hx Anemia: Yes - INTEGUMENTARY Hx Dermatological Problems: No - MUSCULOSKELETAL/RHEUMATOLOGICAL Hx Arthritis: Yes (BACK AND KNEES AND R SHOULDER) - GASTROINTESTINAL Hx Gastrointestinal Disorders: No - GENITOURINARY/GYNECOLOGICAL Hx Genitourinary Disorders: No - PSYCHIATRIC Hx Anxiety: Yes Hx Substance Use: No - SURGICAL HISTORY Hx Appendectomy: Yes Hx Coronary Stent: Yes - ANESTHESIA Hx Anesthesia: Yes Hx Anesthesia Reactions: No Hx Malignant Hyperthermia: No Meds Allergies/Adverse Reactions: Allergies Allergy/AdvReac Type Severity Reaction Status Date / Time clopidogrel Allergy Mild SWELLING Verified 12/22/17 13:34 - Medications Medications: Current Medications Albuterol/Ipratropium (Duoneb 3 Mg/0.5 Mg (3 Ml) Ud) 3 ml INH RQ6 [facility] Last Admin: 12/27/17 13:34 Dose: 3 ml Aspirin (Ecotrin) 81 mg PO DAILY [facility] Last Admin: 12/27/17 10:40 Dose: 81 mg Cyproheptadine HCl (Periactin) 4 mg PO TID [facility] Last Admin: 12/27/17 13:46 Dose: 4 mg Ergocalciferol (Drisdol 50,000 Intl Units Cap) 1 cap PO QWK [facility] Famotidine (Pepcid) 20 mg PO DAILY [facility] Last Admin: 12/27/17 10:40 Dose: 20 mg Furosemide (Lasix) 20 mg PO DAILY [facility] Insulin Glargine (Lantus) 20 unit SC [facility] Last Admin: 12/26/17 21:11 Dose: Not Given Insulin Human Regular (Novolin R) 0 unit SC ACHS [facility] PRN Reason: Protocol Last Admin: 12/27/17 12:41 Dose: 2 u Metoprolol Tartrate (Lopressor) 25 mg PO BID [facility] Last Admin: 12/27/17 10:41 Dose: 25 mg Nitroglycerin (Nitrostat Sl Tab) 0.6 mg SL Q5MIN PRN PRN Reason: CHEST PAIN Ranolazine (Ranexa) 500 mg PO BID [facility] Last Admin: 12/27/17 10:40 Dose: 500 mg Repaglinide (Prandin) 2 mg PO DAILY [facility] Last Admin: 12/27/17 10:40 Dose: 2 mg Rosuvastatin Calcium (Crestor) 20 mg PO HS [facility] Last Admin: 12/26/17 21:10 Dose: 20 mg Sacubitril/Valsartan (Entresto 24 Mg-26 Mg) 1 tab PO DAILY [facility] Last Admin: 12/27/17 10:45 Dose: Not Given Ticagrelor (Brilinta) 60 mg PO BID [facility] Last Admin: 12/27/17 10:40 Dose: 60 mg Physical Exam - Constitutional Appears: No Acute Distress - Head Exam Head Exam: NORMAL INSPECTION - Eye Exam Eye Exam: EOMI, PERRL - ENT Exam ENT Exam: Normal Oropharynx - Neck Exam Neck exam: Positive for: Normal Inspection - Respiratory Exam Respiratory Exam: Wheezes (B/L ) - Cardiovascular Exam Cardiovascular Exam: REGULAR RHYTHM, +S1, +S2 - GI/Abdominal Exam GI & Abdominal Exam: Normal Bowel Sounds, Soft - Extremities Exam Extremities exam: Positive for: pedal pulses present. Negative for: calf tenderness, pedal edema - Neurological Exam Neurological exam: Alert, CN II-XII Intact, Oriented x3, Reflexes Normal - Psychiatric Exam Psychiatric exam: Normal Mood - Skin Skin Exam: Normal Color, Warm Results - Vital Signs Recent Vital Signs: Last Vital Signs Temp 97.8 F 12/27/17 07:30 Pulse 93 H 12/27/17 15:46 Resp 20 12/27/17 07:30 BP 99/55 L 12/27/17 13:44 Pulse Ox 100 12/27/17 14:33 - Labs Result Diagrams: 12/28/17 08:32 12/27/17 06:48 Labs: Laboratory Results - last 24 hr 12/26/17 12/26/17 12/27/17 16:35 21:00 06:48 WBC 7.1 RBC 3.74 L Hgb 9.8 L Hct 30.3 L MCV 80.9 L MCH 26.1 L MCHC 32.2 L RDW 22.2 H Plt Count 106 L MPV 11.2 Neut % (Auto) 73.3 Lymph % (Auto) 10.4 L Moody % (Auto) 10.8 H Eos % (Auto) 4.9 H Baso % (Auto) 0.6 Neut # (Auto) 5.2 Lymph # (Auto) 0.7 L Moody # (Auto) 0.8 Eos # (Auto) 0.3 Baso # (Auto) 0.0 Sodium Potassium Chloride Carbon Dioxide Anion Gap BUN Creatinine Est GFR ( Amer) Est GFR (Non-Af Amer) POC Glucose (mg/dL) 178 H 212 H Random Glucose Calcium Total Bilirubin AST ALT Alkaline Phosphatase Total Protein Albumin Globulin Albumin/Globulin Ratio 12/27/17 12/27/17 12/27/17 06:48 11:06 16:18 WBC RBC Hgb Hct MCV MCH MCHC RDW Plt Count MPV Neut % (Auto) Lymph % (Auto) Moody % (Auto) Eos % (Auto) Baso % (Auto) Neut # (Auto) Lymph # (Auto) Moody # (Auto) Eos # (Auto) Baso # (Auto) Sodium 141 Potassium 4.7 Chloride 102 Carbon Dioxide 30 Anion Gap 14 BUN 34 H Creatinine 1.9 H Est GFR ( Amer) 30 Est GFR (Non-Af Amer) 25 POC Glucose (mg/dL) 171 H 73 Random Glucose 165 H Calcium 8.7 Total Bilirubin 0.4 AST 42 H D ALT 28 Alkaline Phosphatase 67 Total Protein 6.3 Albumin 3.2 L Globulin 3.1 Albumin/Globulin Ratio 1.0 - Imaging and Cardiology Chest x-ray Status: Report reviewed by me ( PULMONARY VASCULAR CONGESTION, SMALL BILATERAL PLEURAL EFFUSIONS.) Assessment & Plan - Assessment and Plan (Free Text) Assessment: IMPRESSION; UROSEPSIS- BETA-HEMOLYTIC STREP GROUP B. EXACERBATION OF COPD/ BRONCHIAL ASTHMA CONGESTIVE HEART FAILURE WITH BILATERAL PLEURAL EFFUSIONS. CAD X 2 STENTS. ANEMIA. RENAL INSUFFICIENCY. PLAN. PANCULTURES ESR CRP RENAL ULTRASOUND RULE OUT NEPHROLITHIASIS VS HYDRONEPHROSIS START iv ROCEPHIN 1 G EVERY 24 HOURLY. 6/11/18. START sOLU-mEDROL 40 MG EVERY 8 HOURLY IN VIEW OF EXACERBATION OF COPD AND WHEEZING. MONITOR RENAL FUNCTIONS CLOSELY. MONITOR lftS CLOSELY. PATIENT ON DIURESIS PER PMD. WILL FOLLOW PATIENT ALONG WITH YOU AND MAKE RECOMMENDATIONS NEEDED.
[2017-12-27] MEDS: MethylPREDNISolone 40 mg Vial IV SCH (18:55)
[2017-12-27] MEDS: (Lantus) Insulin Glargine, Recombinant SC SCH (21:51)
--- NOTE | 2017-12-27 22:43 | US ---
EXAM: US Retroperitoneal Complete, Renal EXAM DATE/TIME: 12/27/2017 4:41 PM CLINICAL HISTORY: 87 years old, female; Signs and symptoms; Other: Uti TECHNIQUE: Real-time ultrasound of the retroperitoneum (complete) with image documentation. COMPARISON: No relevant prior studies available. FINDINGS: Right kidney: Small in size, measuring 7.2 cm. Demonstrates mild cortical thinning/atrophy. Otherwise unremarkable in appearance. No evidence of hydronephrosis. Left kidney: Contains 3 lesions, which have ultrasound features most suggestive of cysts. The largest of these, located in the lower pole, measures 3.5 x 2.5 cm. Small in size, measuring 8.2 cm in length. Otherwise within normal limits in appearance. No evidence of hydronephrosis. Bladder: Within normal limits in appearance. Other findings: Multiple gallstones and sludge incidentally noted in the gallbladder. The common bile duct measures 7.4 mm maximally, within normal limits in a patient of this age. IMPRESSION: No evidence of hydronephrosis or other acute abnormality of the kidneys. Gallstones and sludge incidentally noted. Small size of both kidneys, most likely secondary to chronic atrophy. Left renal cysts. See above for remaining findings.
[2017-12-28] MEDS: Albuterol-Ipratrop 3 mg / 0.5 (3 ml) UD INH SCH ×4 (01:21→19:43)
[2017-12-28] MEDS: MethylPREDNISolone 40 mg Vial IV SCH ×3 (02:58→17:32)
[2017-12-28] MEDS: (Novolin R) Insulin Human Regular 100 units/ml vial SC SCH ×4 (08:41→22:16)
[2017-12-28 08:45] LABS: BASO % 0.1 % (0.0-2.0); HEMOGLOBIN 9.5 g/dL (11.0-16.0); LYMPH # 0.3 K/uL (1.0-4.3); LYMPH % 4.7 % (20.0-40.0); MEAN CORPUSCULAR HEMOGLOBIN 26.2 pg (27.0-31.0); MEAN CORPUSCULAR HGB CONC 32.8 g/dL (33.0-37.0); MEAN PLATELET VOLUME 11.5 fL (7.2-11.7); MONO # 0.1 K/uL (0.0-0.8); MONO % 0.8 % (0.0-10.0); NEUT # 6.5 K/uL (1.8-7.0); NEUT % 94.4 % (50.0-75.0); PLATELET COUNT 110 K/uL (130-400); RBC 3.64 Mil/uL (3.80-5.20); WHITE BLOOD COUNT 6.9 K/uL (4.8-10.8)
[2017-12-28 09:02] LABS: ALB/GLOB RATIO 1.1 (1.0-2.1); ALBUMIN 3.2 g/dL (3.5-5.0); BILIRUBIN,DIRECT 0.4 mg/dL (0.0-0.4)
[2017-12-28 09:46] LABS: ANISOCYTOSIS SLIGHT; BANDS 2 % (0-2); HYPOCHROMIC SLIGHT; LYMPHOCYTE 3 % (20-40); NEUTROPHIL 95 % (50-75); PLATELET ESTIMATE SLIGHTLY DECREASED (NORMAL); TOTAL CELLS COUNTED 100
[2017-12-28 09:47] LABS: POIKILOCYTOSIS SLIGHT; POLYCHROMIC SLIGHT; TARGET CELLS SLIGHT
[2017-12-28] MEDS: Ranolazine 500 mg Extended Release Tablets PO SCH ×2 (10:36→17:34)
[2017-12-28] MEDS: Sacubitril/Valsartan 24-26mg Tab PO SCH (10:37)
--- NOTE | 2017-12-28 13:50 | CP.PCM.PN ---
Subjective - Date & Time of Evaluation Date of Evaluation: 12/28/17 Time of Evaluation: 13:47 - Subjective Subjective: CHIEF COMPLAINTS TODAY : Patient is complaining of shortness of breath walking to the bathroom mostly wheezing. Patient's blood pressure is stabilized now. Heart rate is in 80s and 90s. There is no definite dysuria or hematuria. ROS. HEENT : N. Resp : No,pleuritic CP ,or hemoptysis Cardio : No anginal CP, , palpitation GI : No abd.pain, n/v ,diarrhea or GI bleeding . 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 Musculoskel : No joint swelling , Derm : No rash Psych : Normal affect. Ext : No swelling ,calf pain PE. Pt. is alert awake in no distress. V.S As noted in the chart Head ,ear nose,throat and eyes : Normal. Neck : Supple with normal carotids. Lungs: Bilateral rales Heart : S1 & S2 normal with S4. No murmur. Abd : Soft non tender with normal bowel sounds. Neuro : Moves all ext. with no localized deficit. Ext : No edema with intact pulses.Non tender calves Derm : No rashes or decubitus ulcer. LABS/RADIOLOGY: Urine culture and sensitivity shows strep group B. ASSESSMENT/PLAN : Continue IV antibiotics. Add small dose of steroids as patient is continuously wheezing. Creatinine is 1.9; deferred cardiac catheterization. Objective - Vital Signs/Intake and Output Vital Signs (last 24 hours): Temp Pulse Resp BP Pulse Ox 97.5 F L 92 H 20 100/74 100 12/28/17 07:30 12/28/17 10:00 12/28/17 07:30 12/28/17 10:10 12/28/17 07:30 - Medications Medications: Current Medications Albuterol/Ipratropium (Duoneb 3 Mg/0.5 Mg (3 Ml) Ud) 3 ml INH RQ6 [facility] [place] Last Admin: 12/28/17 13:31 Dose: 3 ml Aspirin (Ecotrin) 81 mg PO DAILY [facility] [place] Last Admin: 12/28/17 10:36 Dose: 81 mg Cyproheptadine HCl (Periactin) 4 mg PO TID [facility] [place] Last Admin: 12/28/17 10:36 Dose: 4 mg Ergocalciferol (Drisdol 50,000 Intl Units Cap) 1 cap PO QWK [facility] [place] Famotidine (Pepcid) 20 mg PO DAILY [facility] [place] Last Admin: 12/28/17 10:36 Dose: 20 mg Furosemide (Lasix) 20 mg PO DAILY [facility] [place] Last Admin: 12/28/17 10:10 Dose: Not Given Ceftriaxone Sodium 1 gm/ (Sodium Chloride) 100 mls @ 100 mls/hr IVPB Q24H [facility] [place] PRN Reason: Protocol Last Admin: 12/27/17 19:03 Dose: 100 mls/hr Insulin Glargine (Lantus) 20 unit SC HS [facility] [place] Last Admin: 12/27/17 21:51 Dose: 20 units Insulin Human Regular (Novolin R) 0 unit SC ACHS [facility] [place] PRN Reason: Protocol Last Admin: 12/28/17 12:06 Dose: 6 u Methylprednisolone (Solu-Medrol) 40 mg IV Q8H [facility] [place] Last Admin: 12/28/17 10:36 Dose: 40 mg Metoprolol Tartrate (Lopressor) 25 mg PO BID [facility] [place] Last Admin: 12/28/17 10:10 Dose: Not Given Nitroglycerin (Nitrostat Sl Tab) 0.6 mg SL Q5MIN PRN PRN Reason: CHEST PAIN Ranolazine (Ranexa) 500 mg PO BID [facility] [place] Last Admin: 12/28/17 10:36 Dose: 500 mg Repaglinide (Prandin) 2 mg PO DAILY [facility] [place] Last Admin: 12/28/17 10:37 Dose: 2 mg Rosuvastatin Calcium (Crestor) 20 mg PO HS [facility] [place] Last Admin: 12/27/17 21:52 Dose: 20 mg Sacubitril/Valsartan (Entresto 24 Mg-26 Mg) 1 tab PO DAILY [facility] [place] Last Admin: 12/28/17 10:37 Dose: 1 tab Ticagrelor (Brilinta) 60 mg PO BID [facility] [place] Last Admin: 12/28/17 10:37 Dose: 60 mg - Labs Labs: 12/28/17 08:32 12/27/17 06:48 PT 12.3 SECONDS (9.7-12.2) H 12/22/17 14:06 INR 1.1 12/22/17 14:06 APTT 33 SECONDS (21-34) 12/22/17 14:06
--- NOTE | 2017-12-28 14:12 | CP.PCM.PN ---
Subjective - Date & Time of Evaluation Date of Evaluation: 12/28/17 Time of Evaluation: 14:12 - Subjective Subjective: CHIEF COMPLAINTS TODAY : AFEBRILE, C/O SOB ON EXERCISE. DENIES DYSURIA OR HEMATURIA ROS. HEENT : N. Resp : No,pleuritic CP ,or hemoptysis Cardio : No anginal CP, , palpitation GI : No abd.pain, n/v ,diarrhea or GI bleeding . SPECTROSCOPIST : No headache, vertigo, focal deficit. Musculoskel : No joint swelling , Derm : No rash Psych : Normal affect. Ext : No swelling ,calf pain PE. Pt. is alert awake in no distress. V.S As noted in the chart Head ,ear nose,throat and eyes : Normal. Neck : Supple with normal carotids. Lungs: Bilateral rales Heart : S1 & S2 normal with S4. No murmur. Abd : Soft non tender with normal bowel sounds. Neuro : Moves all ext. with no localized deficit. Ext : No edema with intact pulses.Non tender calves Derm : No rashes or decubitus ulcer. LABS/RADIOLOGY: Urine culture and sensitivity shows strep group B. ASSESSMENT/PLAN : Continue IV antibiotics. Add small dose of steroids as patient is continuously wheezing. Creatinine is 1.9; deferred cardiac catheterization. watch renal functions closely. Objective - Vital Signs/Intake and Output Vital Signs (last 24 hours): Temp Pulse Resp BP Pulse Ox 97.5 F L 92 H 20 100/74 100 12/28/17 07:30 12/28/17 10:00 12/28/17 07:30 12/28/17 10:10 12/28/17 07:30 - Medications Medications: Current Medications Albuterol/Ipratropium (Duoneb 3 Mg/0.5 Mg (3 Ml) Ud) 3 ml INH RQ6 [facility] Last Admin: 12/28/17 13:31 Dose: 3 ml Aspirin (Ecotrin) 81 mg PO DAILY [facility] Last Admin: 12/28/17 10:36 Dose: 81 mg Cyproheptadine HCl (Periactin) 4 mg PO TID [facility] Last Admin: 12/28/17 10:36 Dose: 4 mg Ergocalciferol (Drisdol 50,000 Intl Units Cap) 1 cap PO QWK [facility] Famotidine (Pepcid) 20 mg PO DAILY [facility] Last Admin: 12/28/17 10:36 Dose: 20 mg Furosemide (Lasix) 20 mg PO DAILY [facility] Last Admin: 12/28/17 10:10 Dose: Not Given Ceftriaxone Sodium 1 gm/ (Sodium Chloride) 100 mls @ 100 mls/hr IVPB Q24H [facility] PRN Reason: Protocol Last Admin: 12/27/17 19:03 Dose: 100 mls/hr Insulin Glargine (Lantus) 20 unit SC HS [facility] Last Admin: 12/27/17 21:51 Dose: 20 units Insulin Human Regular (Novolin R) 0 unit SC ACHS [facility] PRN Reason: Protocol Last Admin: 12/28/17 12:06 Dose: 6 u Methylprednisolone (Solu-Medrol) 40 mg IV Q8H [facility] Last Admin: 12/28/17 10:36 Dose: 40 mg Metoprolol Tartrate (Lopressor) 25 mg PO BID [facility] Last Admin: 12/28/17 10:10 Dose: Not Given Nitroglycerin (Nitrostat Sl Tab) 0.6 mg SL Q5MIN PRN PRN Reason: CHEST PAIN Ranolazine (Ranexa) 500 mg PO BID [facility] Last Admin: 12/28/17 10:36 Dose: 500 mg Repaglinide (Prandin) 2 mg PO DAILY [facility] Last Admin: 12/28/17 10:37 Dose: 2 mg Rosuvastatin Calcium (Crestor) 20 mg PO HS [facility] Last Admin: 12/27/17 21:52 Dose: 20 mg Sacubitril/Valsartan (Entresto 24 Mg-26 Mg) 1 tab PO DAILY [facility] Last Admin: 12/28/17 10:37 Dose: 1 tab Ticagrelor (Brilinta) 60 mg PO BID [facility] Last Admin: 12/28/17 10:37 Dose: 60 mg - Labs Labs: 12/28/17 08:32 12/27/17 06:48 PT 12.3 SECONDS (9.7-12.2) H 12/22/17 14:06 INR 1.1 12/22/17 14:06 APTT 33 SECONDS (21-34) 12/22/17 14:06
[2017-12-28] MEDS: (Lantus) Insulin Glargine, Recombinant SC SCH (21:52)
[2017-12-29] MEDS: MethylPREDNISolone 40 mg Vial IV SCH ×3 (01:22→17:50)
[2017-12-29 07:54] LABS: HEMOGLOBIN 8.4 g/dL (11.0-16.0); LYMPH # 0.3 K/uL (1.0-4.3); MEAN CORPUSCULAR HEMOGLOBIN 26.5 pg (27.0-31.0); MEAN CORPUSCULAR HGB CONC 33.1 g/dL (33.0-37.0); MEAN PLATELET VOLUME 10.8 fL (7.2-11.7); MONO # 0.4 K/uL (0.0-0.8); MONO % 3.9 % (0.0-10.0); NEUT # 10.3 K/uL (1.8-7.0); NEUT % 93.1 % (50.0-75.0); PLATELET COUNT 109 K/uL (130-400); RBC 3.18 Mil/uL (3.80-5.20); RED CELL DISTRIBUTION WIDTH 21.8 % (11.5-14.5)
[2017-12-29 08:06] LABS: ALB/GLOB RATIO 1.3 (1.0-2.1); ALBUMIN 3.4 g/dL (3.5-5.0); CALCIUM 8.8 mg/dl (8.6-10.4)
[2017-12-29] MEDS: (Novolin R) Insulin Human Regular 100 units/ml vial SC SCH ×4 (08:32→22:45)
[2017-12-29 09:51] LABS: BANDS 3 % (0-2); LYMPHOCYTE 5 % (20-40); MONOCYTE 3 % (0-10); NEUTROPHIL 89 % (50-75); TOTAL CELLS COUNTED 100
[2017-12-29 09:52] LABS: ANISOCYTOSIS SLIGHT; PLATELET ESTIMATE SLIGHTLY DECREASED (NORMAL); POIKILOCYTOSIS SLIGHT
[2017-12-29 09:53] LABS: HYPOCHROMIC SLIGHT; MICROCYTOSIS SLIGHT
[2017-12-29] MEDS ORDERED: Ergocalciferol 50,000 Intl Units Cap PO SCH (10:00)
[2017-12-29] MEDS: Ranolazine 500 mg Extended Release Tablets PO SCH ×2 (10:12→17:52)
[2017-12-29] MEDS ORDERED: Sod Polystyrene Sulf 15 gm/60 ml Susp PO ONE (12:30)
--- NOTE | 2017-12-29 14:09 | CP.PCM.PN ---
Subjective - Date & Time of Evaluation Date of Evaluation: 12/29/17 Time of Evaluation: 14:07 - Subjective Subjective: CHIEF COMPLAINTS TODAY : Patient is complaining of shortness of breath walking to the bathroom mostly wheezing. Patient's blood pressure is stabilized now. Heart rate is in 80s and 90s. ROS. HEENT : N. Resp : No,pleuritic CP ,or hemoptysis Cardio : No anginal CP, , palpitation GI : No abd.pain, n/v ,diarrhea or GI bleeding . 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 Musculoskel : No joint swelling , Derm : No rash Psych : Normal affect. Ext : No swelling ,calf pain PE. Pt. is alert awake in no distress. V.S As noted in the chart Head ,ear nose,throat and eyes : Normal. Neck : Supple with normal carotids. Lungs: Bilateral rales Inspiratory and expiratory wheeze Heart : S1 & S2 normal with S4. No murmur. Abd : Soft non tender with normal bowel sounds. Neuro : Moves all ext. with no localized deficit. Ext : No edema with intact pulses.Non tender calves Derm : No rashes or decubitus ulcer. LABS/RADIOLOGY: Urine culture and sensitivity shows strep group B. ASSESSMENT/PLAN : Continue IV antibiotics. Add small dose of steroids as patient is continuously wheezing. Objective - Vital Signs/Intake and Output Vital Signs (last 24 hours): Temp Pulse Resp BP Pulse Ox 97.5 F L 86 20 112/57 L 100 12/29/17 07:25 12/29/17 12:00 12/29/17 07:25 12/29/17 10:10 12/29/17 07:25 - Medications Medications: Current Medications Aspirin (Ecotrin) 81 mg PO DAILY [facility] Last Admin: 12/29/17 10:11 Dose: 81 mg Cyproheptadine HCl (Periactin) 4 mg PO TID [facility] Last Admin: 12/29/17 13:10 Dose: 4 mg Ergocalciferol (Drisdol 50,000 Intl Units Cap) 1 cap PO QWK [facility] Last Admin: 12/29/17 10:12 Dose: 1 cap Famotidine (Pepcid) 20 mg PO DAILY [facility] Last Admin: 12/29/17 10:12 Dose: 20 mg Furosemide (Lasix) 20 mg PO DAILY [facility] Last Admin: 12/29/17 10:12 Dose: 20 mg Ceftriaxone Sodium 1 gm/ (Sodium Chloride) 100 mls @ 100 mls/hr IVPB Q24H [facility] PRN Reason: Protocol Last Admin: 12/28/17 18:39 Dose: 100 mls/hr Insulin Glargine (Lantus) 20 unit SC HS [facility] Last Admin: 12/28/17 21:52 Dose: 20 units Insulin Human Regular (Novolin R) 0 unit SC ACHS [facility] PRN Reason: Protocol Last Admin: 12/29/17 12:34 Dose: 10 u Methylprednisolone (Solu-Medrol) 40 mg IV Q8H [facility] Last Admin: 12/29/17 10:11 Dose: 40 mg Metoprolol Tartrate (Lopressor) 25 mg PO BID [facility] Last Admin: 12/28/17 17:35 Dose: Not Given Nitroglycerin (Nitrostat Sl Tab) 0.6 mg SL Q5MIN PRN PRN Reason: CHEST PAIN Ranolazine (Ranexa) 500 mg PO BID [facility] Last Admin: 12/29/17 10:12 Dose: 500 mg Repaglinide (Prandin) 2 mg PO DAILY [facility] Last Admin: 12/29/17 10:11 Dose: 2 mg Rosuvastatin Calcium (Crestor) 10 mg PO [facility] Sacubitril/Valsartan (Entresto 24 Mg-26 Mg) 1 tab PO DAILY [facility] Last Admin: 12/28/17 10:37 Dose: 1 tab Ticagrelor (Brilinta) 60 mg PO BID [facility] Last Admin: 12/29/17 10:11 Dose: 60 mg - Labs Labs: 12/29/17 07:36 12/29/17 07:36 PT 12.3 SECONDS (9.7-12.2) H 12/22/17 14:06 INR 1.1 12/22/17 14:06 APTT 33 SECONDS (21-34) 12/22/17 14:06
--- NOTE | 2017-12-29 22:48 | CARD ---
APPROVED REPORT EKG Measurement Heart [id number] <Conclusion> Sinus tachycardia with premature supraventricular complexes Possible Left atrial enlargement Left bundle branch block Abnormal ECG
[2017-12-29] MEDS: (Lantus) Insulin Glargine, Recombinant SC SCH (22:50)
[2017-12-30] MEDS: MethylPREDNISolone 40 mg Vial IV SCH ×3 (01:45→17:55)
[2017-12-30 08:14] LABS: BASO % 0.1 % (0.0-2.0); HEMOGLOBIN 9.5 g/dL (11.0-16.0); LYMPH # 0.3 K/uL (1.0-4.3); LYMPH % 2.6 % (20.0-40.0); MEAN CELL VOLUME 80.4 fL (81.0-99.0); MEAN CORPUSCULAR HEMOGLOBIN 26.6 pg (27.0-31.0); MEAN CORPUSCULAR HGB CONC 33.1 g/dL (33.0-37.0); MEAN PLATELET VOLUME 11.2 fL (7.2-11.7); MONO # 0.3 K/uL (0.0-0.8); MONO % 2.5 % (0.0-10.0); NEUT # 10.3 K/uL (1.8-7.0); NEUT % 94.8 % (50.0-75.0); NRBC % 0.1 % (0.0-2.0); PLATELET COUNT 128 K/uL (130-400); RBC 3.56 Mil/uL (3.80-5.20); RED CELL DISTRIBUTION WIDTH 22.6 % (11.5-14.5); WHITE BLOOD COUNT 10.9 K/uL (4.8-10.8)
[2017-12-30 08:27] LABS: ALB/GLOB RATIO 1.3 (1.0-2.1); ALBUMIN 3.4 g/dL (3.5-5.0); CALCIUM 8.8 mg/dl (8.6-10.4)
[2017-12-30] MEDS: (Novolin R) Insulin Human Regular 100 units/ml vial SC SCH ×4 (08:30→22:07)
[2017-12-30] MEDS: Sacubitril/Valsartan 24-26mg Tab PO SCH (09:21)
[2017-12-30] MEDS: Ranolazine 500 mg Extended Release Tablets PO SCH ×2 (09:21→17:53)
[2017-12-30 09:31] LABS: ANISOCYTOSIS SLIGHT; LYMPHOCYTE 1 % (20-40); MONOCYTE 3 % (0-10); NEUTROPHIL 96 % (50-75); PLATELET ESTIMATE SLIGHTLY DECREASED (NORMAL); TOTAL CELLS COUNTED 100
[2017-12-30 09:32] LABS: HYPOCHROMIC SLIGHT; POIKILOCYTOSIS SLIGHT
--- NOTE | 2017-12-30 12:17 | CP.PCM.PN ---
Subjective - Date & Time of Evaluation Date of Evaluation: 12/30/17 Time of Evaluation: 12:16 - Subjective Subjective: CHIEF COMPLAINTS TODAY : AFEBRILE, LESS DYSPNOEC DENIES DYSURIA ROS. HEENT : N. Resp : No,pleuritic CP ,or hemoptysis Cardio : No anginal CP, , palpitation GI : No abd.pain, n/v ,diarrhea or GI bleeding . 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 Musculoskel : No joint swelling , Derm : No rash Psych : Normal affect. Ext : No swelling ,calf pain PE. Pt. is alert awake in no distress. V.S As noted in the chart Head ,ear nose,throat and eyes : Normal. Neck : Supple with normal carotids. Lungs: BILATERAL RALES/WHEEZE Heart : S1 & S2 normal with S4. No murmur. Abd : Soft non tender with normal bowel sounds. Neuro : Moves all ext. with no localized deficit. Ext : No edema with intact pulses.Non tender calves Derm : No rashes or decubitus ulcer. LABS/RADIOLOGY: WBC 10.9 PLT 128 BETTER CREAT 1.9/BUN 40 Urine culture and sensitivity shows strep group B. ASSESSMENT/PLAN : IMPRESSION; UROSEPSIS- BETA-HEMOLYTIC STREP GROUP B. EXACERBATION OF COPD/ BRONCHIAL ASTHMA CONGESTIVE HEART FAILURE WITH BILATERAL PLEURAL EFFUSIONS. CAD X 2 STENTS. ANEMIA. RENAL INSUFFICIENCY. PLAN. REPEAT CLEAN CATCH UA/URINE CULTURE ON iv ROCEPHIN 1 G EVERY 24 HOURLY. 12/27/17. ON SOLU-mEDROL 40 MG EVERY 8 HOURLY IN VIEW OF EXACERBATION OF COPD AND WHEEZING. MONITOR RENAL FUNCTIONS CLOSELY. MONITOR lftS CLOSELY. Objective - Vital Signs/Intake and Output Vital Signs (last 24 hours): Temp Pulse Resp BP Pulse Ox 98.0 F 97 H 20 100/64 99 12/30/17 07:57 12/30/17 08:15 12/30/17 07:57 12/30/17 09:24 12/30/17 07:57 Intake and Output: 12/30/17 12/30/17 06:59 18:59 Intake Total 580 Balance 580 - Medications Medications: Current Medications Aspirin (Ecotrin) 81 mg PO DAILY [facility] Last Admin: 12/30/17 09:21 Dose: 81 mg Cyproheptadine HCl (Periactin) 4 mg PO TID [facility] Last Admin: 12/30/17 09:20 Dose: 4 mg Ergocalciferol (Drisdol 50,000 Intl Units Cap) 1 cap PO QWK [facility] Last Admin: 12/29/17 10:12 Dose: 1 cap Famotidine (Pepcid) 20 mg PO DAILY [facility] Last Admin: 12/30/17 09:21 Dose: 20 mg Furosemide (Lasix) 20 mg PO DAILY [facility] Last Admin: 12/30/17 09:24 Dose: Not Given Ceftriaxone Sodium 1 gm/ (Sodium Chloride) 100 mls @ 100 mls/hr IVPB Q24H [facility] PRN Reason: Protocol Last Admin: 12/29/17 19:26 Dose: 100 mls/hr Insulin Glargine (Lantus) 20 unit SC [facility] Last Admin: 12/29/17 22:50 Dose: Not Given Insulin Human Regular (Novolin R) 0 unit SC ACHS [facility] PRN Reason: Protocol Last Admin: 12/30/17 12:06 Dose: 10 u Methylprednisolone (Solu-Medrol) 40 mg IV Q8H [facility] Last Admin: 12/30/17 09:21 Dose: 40 mg Metoprolol Tartrate (Lopressor) 25 mg PO BID [facility] Last Admin: 12/30/17 09:24 Dose: Not Given Nitroglycerin (Nitrostat Sl Tab) 0.6 mg SL Q5MIN PRN PRN Reason: CHEST PAIN Ranolazine (Ranexa) 500 mg PO BID [facility] Last Admin: 12/30/17 09:21 Dose: 500 mg Repaglinide (Prandin) 2 mg PO DAILY [facility] Last Admin: 12/30/17 09:20 Dose: 2 mg Rosuvastatin Calcium (Crestor) 10 mg PO [facility] Last Admin: 12/29/17 22:48 Dose: 10 mg Sacubitril/Valsartan (Entresto 24 Mg-26 Mg) 1 tab PO DAILY [facility] Last Admin: 12/30/17 09:21 Dose: 1 tab Ticagrelor (Brilinta) 60 mg PO BID [facility] Last Admin: 12/30/17 09:20 Dose: 60 mg - Labs Labs: 12/30/17 07:51 12/30/17 07:51 PT 12.3 SECONDS (9.7-12.2) H 12/22/17 14:06 INR 1.1 12/22/17 14:06 APTT 33 SECONDS (21-34) 12/22/17 14:06
--- NOTE | 2017-12-30 13:52 | CP.PCM.PN ---
Subjective - Date & Time of Evaluation Date of Evaluation: 12/30/17 Time of Evaluation: 13:50 - Subjective Subjective: CHIEF COMPLAINTS TODAY : Patient's breathing is much easier less wheezing and cough. No further epigastric or abdominal pain. ROS. HEENT : N. Resp : No,pleuritic CP ,or hemoptysis Cardio : No anginal CP, , palpitation GI : No abd.pain, n/v ,diarrhea or GI bleeding . 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 Musculoskel : No joint swelling , Derm : No rash Psych : Normal affect. Ext : No swelling ,calf pain PE. Pt. is alert awake in no distress. V.S As noted in the chart Head ,ear nose,throat and eyes : Normal. Neck : Supple with normal carotids. Lungs: Bilateral rales Inspiratory and expiratory wheeze Heart : S1 & S2 normal with S4. No murmur. Abd : Soft non tender with normal bowel sounds. Neuro : Moves all ext. with no localized deficit. Ext : No edema with intact pulses.Non tender calves Derm : No rashes or decubitus ulcer. LABS/RADIOLOGY: Urine culture and sensitivity shows strep group B. ASSESSMENT/PLAN : Continue IV antibiotics.For UTI. Decrease steroid. Patient and family not very anxious for rehab. Will taper of the steroids and plan discharge Objective - Vital Signs/Intake and Output Vital Signs (last 24 hours): Temp Pulse Resp BP Pulse Ox 98.0 F 97 H 20 100/64 99 12/30/17 07:57 12/30/17 08:15 12/30/17 07:57 12/30/17 09:24 12/30/17 07:57 - Medications Medications: Current Medications Aspirin (Ecotrin) 81 mg PO DAILY [facility] Last Admin: 12/30/17 09:21 Dose: 81 mg Cyproheptadine HCl (Periactin) 4 mg PO TID [facility] Last Admin: 12/30/17 09:20 Dose: 4 mg Ergocalciferol (Drisdol 50,000 Intl Units Cap) 1 cap PO QWK [facility] Last Admin: 12/29/17 10:12 Dose: 1 cap Famotidine (Pepcid) 20 mg PO DAILY [facility] Last Admin: 12/30/17 09:21 Dose: 20 mg Furosemide (Lasix) 20 mg PO DAILY [facility] Last Admin: 12/30/17 09:24 Dose: Not Given Ceftriaxone Sodium 1 gm/ (Sodium Chloride) 100 mls @ 100 mls/hr IVPB Q24H [facility] PRN Reason: Protocol Last Admin: 12/29/17 19:26 Dose: 100 mls/hr Insulin Glargine (Lantus) 20 unit SC HS [facility] Last Admin: 12/29/17 22:50 Dose: Not Given Insulin Human Regular (Novolin R) 0 unit SC ACHS [facility] PRN Reason: Protocol Last Admin: 12/30/17 12:06 Dose: 10 u Methylprednisolone (Solu-Medrol) 40 mg IV Q8H [facility] Last Admin: 12/30/17 09:21 Dose: 40 mg Metoprolol Tartrate (Lopressor) 25 mg PO BID [facility] Last Admin: 12/30/17 09:24 Dose: Not Given Nitroglycerin (Nitrostat Sl Tab) 0.6 mg SL Q5MIN PRN PRN Reason: CHEST PAIN Ranolazine (Ranexa) 500 mg PO BID [facility] Last Admin: 12/30/17 09:21 Dose: 500 mg Repaglinide (Prandin) 2 mg PO DAILY [facility] Last Admin: 12/30/17 09:20 Dose: 2 mg Rosuvastatin Calcium (Crestor) 10 mg PO [facility] Last Admin: 12/29/17 22:48 Dose: 10 mg Sacubitril/Valsartan (Entresto 24 Mg-26 Mg) 1 tab PO DAILY [facility] Last Admin: 12/30/17 09:21 Dose: 1 tab Ticagrelor (Brilinta) 60 mg PO BID [facility] Last Admin: 12/30/17 09:20 Dose: 60 mg - Labs Labs: 12/30/17 07:51 12/30/17 07:51 PT 12.3 SECONDS (9.7-12.2) H 12/22/17 14:06 INR 1.1 12/22/17 14:06 APTT 33 SECONDS (21-34) 12/22/17 14:06
[2017-12-30] MEDS: (Lantus) Insulin Glargine, Recombinant SC SCH (22:07)
[2017-12-31 00:06] VITALS: TEMP 97.6
[2017-12-31] MEDS: MethylPREDNISolone 40 mg Vial IV SCH ×2 (01:13→09:32)
[2017-12-31 07:16] LABS: BASO % 0.1 % (0.0-2.0); HEMOGLOBIN 9.3 g/dL (11.0-16.0); LYMPH # 0.3 K/uL (1.0-4.3); LYMPH % 3.6 % (20.0-40.0); MEAN CORPUSCULAR HGB CONC 32.9 g/dL (33.0-37.0); MONO # 0.4 K/uL (0.0-0.8); MONO % 4.6 % (0.0-10.0); NEUT # 8.6 K/uL (1.8-7.0); NEUT % 91.7 % (50.0-75.0); PLATELET COUNT 128 K/uL (130-400); RBC 3.59 Mil/uL (3.80-5.20); RED CELL DISTRIBUTION WIDTH 22.1 % (11.5-14.5); WHITE BLOOD COUNT 9.3 K/uL (4.8-10.8)
[2017-12-31 07:44] LABS: ALB/GLOB RATIO 1.3 (1.0-2.1); ALBUMIN 3.3 g/dL (3.5-5.0); CALCIUM 8.6 mg/dl (8.6-10.4)
[2017-12-31 08:03] VITALS: O2SAT 98
[2017-12-31 08:50] LABS: ANISOCYTOSIS SLIGHT; HYPOCHROMIC SLIGHT; LYMPHOCYTE 1 % (20-40); MONOCYTE 4 % (0-10); NEUTROPHIL 95 % (50-75); PLATELET ESTIMATE SLIGHTLY DECREASED (NORMAL); POIKILOCYTOSIS SLIGHT; TOTAL CELLS COUNTED 100
[2017-12-31 08:51] LABS: OVALOCYTES SLIGHT; TARGET CELLS SLIGHT; TEARDROP CELLS SLIGHT
[2017-12-31 09:31] VITALS: BP 92/57
[2017-12-31] MEDS: Ranolazine 500 mg Extended Release Tablets PO SCH (09:32)
[2017-12-31] MEDS: (Novolin R) Insulin Human Regular 100 units/ml vial SC SCH ×2 (09:34→12:30)
[2017-12-31] MEDS: Sacubitril/Valsartan 24-26mg Tab PO SCH (10:52)
--- NOTE | 2017-12-31 12:38 | CP.PCM.DIS ---
Provider - Provider Date of Admission: 12/22/17 16:40 Attending physician: Uriah Hernández MD Time Spent in preparation of Discharge (in minutes): 35 Hospital Course - Lab Results Lab Results: Micro Results 12/26/17 10:35 Blood Blood Culture - Final NO GROWTH AFTER 5 DAYS 12/26/17 10:35 Blood Gram Stain - Final TEST NOT PERFORMED 12/26/17 06:38 Blood Blood Culture - Final NO GROWTH AFTER 5 DAYS 12/26/17 06:38 Blood Gram Stain - Final TEST NOT PERFORMED 12/26/17 10:44 Urine Urine Culture - Final Beta Hemolytic Strep Group B Most Recent Lab Values WBC 9.3 K/uL (4.8-10.8) 12/31/17 07:09 RBC 3.59 Mil/uL (3.80-5.20) L 12/31/17 07:09 Hgb 9.3 g/dL (11.0-16.0) L 12/31/17 07:09 Hct 28.4 % (34.0-47.0) L 12/31/17 07:09 MCV 79.0 fL (81.0-99.0) L 12/31/17 07:09 MCH 26.0 pg (27.0-31.0) L 12/31/17 07:09 MCHC 32.9 g/dL (33.0-37.0) L 12/31/17 07:09 RDW 22.1 % (11.5-14.5) H 12/31/17 07:09 Plt Count 128 K/uL (130-400) L 12/31/17 07:09 MPV 11.0 fL (7.2-11.7) 12/31/17 07:09 Neut % (Auto) 91.7 % (50.0-75.0) H 12/31/17 07:09 Lymph % (Auto) 3.6 % (20.0-40.0) L 12/31/17 07:09 [place] % (Auto) 4.6 % (0.0-10.0) 12/31/17 07:09 Eos % (Auto) 0.0 % (0.0-4.0) 12/31/17 07:09 Baso % (Auto) 0.1 % (0.0-2.0) 12/31/17 07:09 Neut # (Auto) 8.6 K/uL (1.8-7.0) H 12/31/17 07:09 Lymph # (Auto) 0.3 K/uL (1.0-4.3) L 12/31/17 07:09 [place] # (Auto) 0.4 K/uL (0.0-0.8) 12/31/17 07:09 Eos # (Auto) 0.0 K/uL (0.0-0.7) 12/31/17 07:09 Baso # (Auto) 0.0 K/uL (0.0-0.2) 12/31/17 07:09 Neutrophils % (Manual) 95 % (50-75) H 12/31/17 07:09 Band Neutrophils % 3 % (0-2) H 12/29/17 07:36 Lymphocytes % (Manual) 1 % (20-40) L 12/31/17 07:09 Monocytes % (Manual) 4 % (0-10) 12/31/17 07:09 Eosinophils % (Manual) 2 % (0-4) 12/22/17 14:06 Platelet Estimate Slightly decreased (NORMAL) L 12/31/17 07:09 Polychromasia Slight 12/28/17 08:32 Hypochromasia (manual) Slight 12/31/17 07:09 Poikilocytosis (manual Slight 12/31/17 07:09 Anisocytosis (manual) Slight 12/31/17 07:09 Microcytosis (manual) Slight 12/29/17 07:36 Target Cells Slight 12/31/17 07:09 Tear Drop Cells Slight 12/31/17 07:09 Ovalocytes Slight 12/31/17 07:09 ESR 40 mm/hr (0-20) H 12/28/17 08:32 PT 12.3 SECONDS (9.7-12.2) H 12/22/17 14:06 INR 1.1 12/22/17 14:06 APTT 33 SECONDS (21-34) 12/22/17 14:06 Sodium 140 mmol/L (132-148) 12/31/17 07:09 Potassium 4.7 mmol/L (3.6-5.2) 12/31/17 07:09 Chloride 102 mmol/L (98-107) 12/31/17 07:09 Carbon Dioxide 30 mmol/L (22-30) 12/31/17 07:09 Anion Gap 13 (10-20) 12/31/17 07:09 BUN 45 mg/dL (7-17) H 12/31/17 07:09 Creatinine 1.9 mg/dL (0.7-1.2) H 12/31/17 07:09 Est GFR ( Amer) 30 12/31/17 07:09 Est GFR (Non-Af Amer) 25 12/31/17 07:09 POC Glucose (mg/dL) 439 mg/dL (65-110) H* 12/31/17 11:14 Random Glucose 251 mg/dL (65-105) H 12/31/17 07:09 Calcium 8.6 mg/dl (8.6-10.4) 12/31/17 07:09 Total Bilirubin 0.5 mg/dL (0.2-1.3) 12/31/17 07:09 Direct Bilirubin 0.4 mg/dL (0.0-0.4) 12/28/17 08:32 AST 45 U/L (14-36) H D 12/31/17 07:09 ALT 48 U/L (9-52) 12/31/17 07:09 Alkaline Phosphatase 63 U/L (38-126) 12/31/17 07:09 Total Creatine Kinase 71 U/L (30-135) 12/22/17 14:06 CK-MB (Mass) 1.57 ng/mL (0.0-3.38) 12/22/17 14:06 Troponin I 0.0270 ng/mL (0.00-0.120) 12/22/17 14:06 C-Reactive Protein 7.60 mg/L (0.0-9.9) 12/28/17 08:32 NT-Pro-B Natriuret Pep 74129 pg/mL (0-900) H 12/22/17 14:06 Total Protein 5.8 g/dL (6.3-8.3) L 12/31/17 07:09 Albumin 3.3 g/dL (3.5-5.0) L 12/31/17 07:09 Globulin 2.5 gm/dL (2.2-3.9) 12/31/17 07:09 Albumin/Globulin Ratio 1.3 (1.0-2.1) 12/31/17 07:09 Urine Color [place] (YELLOW) 12/22/17 15:11 Urine Clarity Hazy (Clear) 12/22/17 15:11 Urine pH 5.0 (5.0-8.0) 12/22/17 15:11 Ur Specific [place] 1.023 (1.003-1.030) 12/22/17 15:11 Urine Protein 2+ mg/dL (NEGATIVE) H 12/22/17 15:11 Urine Glucose (UA) 1+ mg/dL (Normal) 12/22/17 15:11 Urine Ketones Negative mg/dL (NEGATIVE) 12/22/17 15:11 Urine Blood 2+ (NEGATIVE) H 12/22/17 15:11 Urine Nitrate Negative (NEGATIVE) 12/22/17 15:11 Urine Bilirubin Negative (NEGATIVE) 12/22/17 15:11 Urine Urobilinogen Normal mg/dL (0.2-1.0) 12/22/17 15:11 Ur Leukocyte Esterase 1+ [place]/uL (Negative) H 12/22/17 15:11 Urine WBC (Auto) 5 /hpf (0-5) 12/22/17 15:11 Urine RBC (Auto) 40 /hpf (0-3) H 12/22/17 15:11 Ur Squamous Epith Cells 4 /hpf (0-5) 12/22/17 15:11 Hyaline Casts 3-5 /lpf (0-2) H 12/22/17 15:11 Granular Casts (Auto) 3 /lpf (0-1) 12/22/17 15:11 - Hospital Course Hospital Course: Patient was admitted from [facility] emergency room for acute shortness of breath and congestive heart failure. Patient has history of ischemic cardiomyopathy with left ventricle ejection fraction of 25-30% with coronary artery disease and stent. Apparently patient was seen outpatient a few days ago apparently in no distress or any symptoms. Prior to admission patient was started getting wheezing shortness of breath mild cough and the symptoms persisted at rest. Patient was evaluated in ER was found to have a high BNP CHF on chest x-ray and responded to IV Lasix. Recently patient was admitted in [facility] for similar complaints and also had received blood transfusion. Currently full detailed history and investigation done at [facility] is not available. Patient was admitted on telemetry. Patient had periods of atrial fibrillation with rapid ventricular rate which responded with by mouth medication. 3 sets of cardiac enzymes were negative for SD. Patient continued to have low blood pressure and a septic workup showed the patient had urine infection with group B strep. Patient was given IV antibiotics with improvement in blood pressure and symptoms. CHF also improved with IV Lasix. Prior to discharge the creatinine was 1.9 and BUN 45. Patient also had increased amount of wheezing which required small dose of Solu- Medrol 40 mg twice a day. Patient currently stable will discharge her on her home medication, short course of steroids, prednisone 5 mg once a day for 7 days, and by mouth antibiotic as per ID. Patient was educated on diet of low salt and patient will be monitored outpatient. Discharge Exam - Head Exam Head Exam: NORMAL INSPECTION Discharge Plan - Follow Up Plan Condition: STABLE Disposition: HOME/ ROUTINE
[2017-12-31 12:57] VITALS: PULSE 101
--- NOTE | 2017-12-31 13:13 | CP.PCM.PN ---
Subjective - Date & Time of Evaluation Date of Evaluation: 12/31/17 Time of Evaluation: 13:13 - Subjective Subjective: CHIEF COMPLAINTS TODAY : AFEBRILE, NO NEW COMPLAINTS DENIES DYSUREA ROS. HEENT : N. Resp : No,pleuritic CP ,or hemoptysis Cardio : No anginal CP, , palpitation GI : No abd.pain, n/v ,diarrhea or GI bleeding . 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 Musculoskel : No joint swelling , Derm : No rash Psych : Normal affect. Ext : No swelling ,calf pain PE. Pt. is alert awake in no distress. V.S As noted in the chart Head ,ear nose,throat and eyes : Normal. Neck : Supple with normal carotids. Lungs: BILATERAL RALES/WHEEZE Heart : S1 & S2 normal with S4. No murmur. Abd : Soft non tender with normal bowel sounds. Neuro : Moves all ext. with no localized deficit. Ext : No edema with intact pulses.Non tender calves Derm : No rashes or decubitus ulcer. LABS/RADIOLOGY: WBC 10.9 PLT 128 BETTER CREAT 1.9/BUN 40 Urine culture and sensitivity shows strep group B. ASSESSMENT/PLAN : IMPRESSION; UROSEPSIS- BETA-HEMOLYTIC STREP GROUP B. EXACERBATION OF COPD/ BRONCHIAL ASTHMA CONGESTIVE HEART FAILURE WITH BILATERAL PLEURAL EFFUSIONS. CAD X 2 STENTS. ANEMIA. RENAL INSUFFICIENCY. PLAN. REPEAT CLEAN CATCH UA/URINE CULTURE DC iv ROCEPHIN 1 G EVERY 24 HOURLY. 12/27/17. START PO KEFLEX 500MG PO BID X3DAYS. PREDNISONE PO PER ATTENDING DC SOLU-mEDROL 40 MG EVERY 8 HOURLY IN VIEW OF EXACERBATION OF COPD AND WHEEZING. MONITOR RENAL FUNCTIONS. MONITOR lftS CLOSELY. F/U OPD BY PMD. Objective - Vital Signs/Intake and Output Vital Signs (last 24 hours): Temp Pulse Resp BP Pulse Ox 97.6 F 101 H 20 92/57 L 98 12/31/17 07:20 12/31/17 12:00 12/31/17 07:20 12/31/17 09:32 12/31/17 07:20 - Medications Medications: Current Medications Aspirin (Ecotrin) 81 mg PO DAILY [facility] Last Admin: 12/31/17 09:32 Dose: 81 mg Cyproheptadine HCl (Periactin) 4 mg PO TID [facility] Last Admin: 12/31/17 09:33 Dose: 4 mg Ergocalciferol (Drisdol 50,000 Intl Units Cap) 1 cap PO QWK [facility] Last Admin: 12/29/17 10:12 Dose: 1 cap Famotidine (Pepcid) 20 mg PO DAILY [facility] Last Admin: 12/31/17 09:32 Dose: 20 mg Furosemide (Lasix) 20 mg PO DAILY [facility] Last Admin: 12/31/17 09:32 Dose: 20 mg Ceftriaxone Sodium 1 gm/ (Sodium Chloride) 100 mls @ 100 mls/hr IVPB Q24H [facility] PRN Reason: Protocol Last Admin: 12/30/17 18:06 Dose: 100 mls/hr Insulin Glargine (Lantus) 20 unit SC [facility] Last Admin: 12/30/17 22:07 Dose: 20 units Insulin Human Regular (Novolin R) 0 unit SC [facility]S JONNA PRN Reason: Protocol Last Admin: 12/31/17 12:30 Dose: 10 u Methylprednisolone (Solu-Medrol) 40 mg IV Q8H [facility] Last Admin: 12/31/17 09:32 Dose: 40 mg Metoprolol Tartrate (Lopressor) 25 mg PO BID [facility] Last Admin: 12/31/17 10:52 Dose: Not Given Nitroglycerin (Nitrostat Sl Tab) 0.6 mg SL Q5MIN PRN PRN Reason: CHEST PAIN Ranolazine (Ranexa) 500 mg PO BID [facility] Last Admin: 12/31/17 09:32 Dose: 500 mg Repaglinide (Prandin) 2 mg PO DAILY [facility] Last Admin: 12/31/17 09:33 Dose: 2 mg Rosuvastatin Calcium (Crestor) 10 mg PO HS [facility] Last Admin: 12/30/17 22:07 Dose: 10 mg Sacubitril/Valsartan (Entresto 24 Mg-26 Mg) 1 tab PO DAILY [facility] Last Admin: 12/31/17 10:52 Dose: Not Given Ticagrelor (Brilinta) 60 mg PO BID [facility] Last Admin: 12/31/17 09:33 Dose: 60 mg - Labs Labs: 12/31/17 07:09 12/31/17 07:09 PT 12.3 SECONDS (9.7-12.2) H 12/22/17 14:06 INR 1.1 12/22/17 14:06 APTT 33 SECONDS (21-34) 12/22/17 14:06
--- NOTE | 2017-12-31 13:40 | CP.PCM.PN ---
Subjective - Date & Time of Evaluation Date of Evaluation: 12/31/17 Time of Evaluation: 13:40 - Subjective Subjective: PATIENT IS EATING/ SITTING AT THE BEDSIDE /AAOX3 / DINIES CHEST PAIN / NAUSEA OR VOMITING Objective - Vital Signs/Intake and Output Vital Signs (last 24 hours): Temp Pulse Resp BP Pulse Ox 97.6 F 101 H 20 92/57 L 98 12/31/17 07:20 12/31/17 12:00 12/31/17 07:20 12/31/17 09:32 12/31/17 07:20 - Medications Medications: Current Medications Aspirin (Ecotrin) 81 mg PO DAILY [facility] Last Admin: 12/31/17 09:32 Dose: 81 mg Cyproheptadine HCl (Periactin) 4 mg PO TID [facility] Last Admin: 12/31/17 09:33 Dose: 4 mg Ergocalciferol (Drisdol 50,000 Intl Units Cap) 1 cap PO QWK [facility] Last Admin: 12/29/17 10:12 Dose: 1 cap Famotidine (Pepcid) 20 mg PO DAILY [facility] Last Admin: 12/31/17 09:32 Dose: 20 mg Furosemide (Lasix) 20 mg PO DAILY [facility] Last Admin: 12/31/17 09:32 Dose: 20 mg Ceftriaxone Sodium 1 gm/ (Sodium Chloride) 100 mls @ 100 mls/hr IVPB Q24H [facility] PRN Reason: Protocol Last Admin: 12/30/17 18:06 Dose: 100 mls/hr Insulin Glargine (Lantus) 20 unit SC HS [facility] Last Admin: 12/30/17 22:07 Dose: 20 units Insulin Human Regular (Novolin R) 0 unit SC ACHS [facility] PRN Reason: Protocol Last Admin: 12/31/17 12:30 Dose: 10 u Methylprednisolone (Solu-Medrol) 40 mg IV Q8H [facility] Last Admin: 12/31/17 09:32 Dose: 40 mg Metoprolol Tartrate (Lopressor) 25 mg PO BID [facility] Last Admin: 12/31/17 10:52 Dose: Not Given Nitroglycerin (Nitrostat Sl Tab) 0.6 mg SL Q5MIN PRN PRN Reason: CHEST PAIN Ranolazine (Ranexa) 500 mg PO BID [facility] Last Admin: 12/31/17 09:32 Dose: 500 mg Repaglinide (Prandin) 2 mg PO DAILY [facility] Last Admin: 12/31/17 09:33 Dose: 2 mg Rosuvastatin Calcium (Crestor) 10 mg PO HS [facility] Last Admin: 12/30/17 22:07 Dose: 10 mg Sacubitril/Valsartan (Entresto 24 Mg-26 Mg) 1 tab PO DAILY [facility] Last Admin: 12/31/17 10:52 Dose: Not Given Ticagrelor (Brilinta) 60 mg PO BID [facility] Last Admin: 12/31/17 09:33 Dose: 60 mg - Labs Labs: 12/31/17 07:09 12/31/17 07:09 PT 12.3 SECONDS (9.7-12.2) H 12/22/17 14:06 INR 1.1 12/22/17 14:06 APTT 33 SECONDS (21-34) 12/22/17 14:06 Assessment and Plan - Assessment and Plan (Free Text) Assessment: PATIENT SEEN AND EXAMINED AT THE BEDSIDE LUNG SOUND CLEAR MARGE REPEAT URINE WAS SENT PEDING FOR RESULT/ PER DR ELLIS PATIENT CAN F/U IN HER OFFICE NEXT WEEK RENAL US SHOW NO HYDRONEPHROSIS NO WBC /AFEBRILE DISCUSS WITH DR MART AND DR ELLIS WHO AGREE AND CLEAR PATIENT FOR DC FOLLOW UP WITH DR MART AND DR ELLIS NEXT WEEK ---CALL FOR APPOINTMENT ADDRESS YOUR URINE CULT RESULT AND BLOOD PRESSURE MEDICATION AT YOUR VISIT CONTINUE ALL YOUR HOME MEDICATION NEW PRESCRIPTION GIVEN ASPIRIN 81 MG PO DAILY KEFLEX 500 MG PO BID FOR 3 DAYS BRILINTA CHANGE TO 60 MG PO BID PREDNISOLONE 5 MG PO DAILY FOR 10 DAYS LASIX CHANGE TO 20 MG PO DAILY (TAKE EARLY 6 AM) PERIACTIN 4 MG TIB PO TAKE THE METROPOLOL Q12H AT (10AM AND 10 PM) CLOSELY MONITOR FOR BP IF DROP BELOW [address] MART OR HOLD FOR BP MED AND LASIX ACTIVITY TOLERATED CALL DR MART OR GO TO THE EMERGENCY ROOM IF SYMPTOM RETURN OR WORSENING DISCUSS WITH PATIENT AND PATIENT'S WHO AGREE AND VERBALIZED UNDERSTANDING
[2017-12-31 14:03] LABS: SQUAMOUS EPITHIAL 3 /hpf (0-5)
[2017-12-31 14:04] LABS: URINE BILIRUBIN NEGATIVE (NEGATIVE); URINE BLOOD NEGATIVE (NEGATIVE); URINE CLARITY Clear (Clear); URINE COLOR Yellow (YELLOW); URINE GLUCOSE (UA) 1+ mg/dL (Normal); URINE LEUKOCYTE ESTERASE NEG Leu/uL (Negative); URINE PROTEIN NEGATIVE (NEGATIVE); URINE UROBILINOGEN NORMAL mg/dL (0.2-1.0)
--- NOTE | 2017-12-31 16:40 | PCM.HF ---
Heart Failure Core Measure - Heart Failure Ejection Fraction: Less Than 40 % MAGNOLIA Inhibitor Prescribed: No Contraindication/Reason for not providing: ARB Beta-Reid Prescribed: Metoprolol Succinate Angiotensin II Receptor Reid Prescribed: Yes AnticoagulationTherapy for Atrial Fibrillation/Atrialflutter: No Contraindication/Reason for not providing: ON HX OF AFIB Aldosterone Antagonist Prescribed: No Contraindication/Reason for not providing: ACUTE RENAL FAILURE Hydralazine Nitrate Prescribed: No Contraindication/Reason for not providing: ON RENEXA Implantable Cardioverter Defibrillator Therapy: No Contraindication/Reason for not providing: PT HAS A PACEMAKER Contraindication/Reason for not providing: PT HAS A PACEMAKER - Follow up Will be discharged to: Home Follow Up Date (must be within 7 days from discharge): 01/05/18 Follow Up Time: 09:00
== END 2017-12-31 15:21 | disposition home or self-care (01) | DRG 292 ==
LOC: C.ER 13:23 → C.9E 16:40 → C.5S 19:16
PROVIDERS: ADMIT Internal Medicine Cardiovascular Disease; ATTEND Internal Medicine Cardiovascular Disease
DX: I11.0 Hypertensive heart disease with heart failure (principal); N39.0 Urinary tract infection, site not specified; J45.901 Unspecified asthma with (acute) exacerbation; J44.1 Chronic obstructive pulmonary disease with (acute) exacerbation; I50.23 Acute on chronic systolic (congestive) heart failure; I48.91 Unspecified atrial fibrillation; I25.10 Atherosclerotic heart disease of native coronary artery without angina pectoris; E11.9 Type 2 diabetes mellitus without complications; D50.9 Iron deficiency anemia, unspecified; I25.5 Ischemic cardiomyopathy; Z86.73 Personal history of transient ischemic attack (TIA), and cerebral infarction without residual deficits; Z95.5 Presence of coronary angioplasty implant and graft

== ENCOUNTER 2018-03-04 11:55 | Inpatient (IN) | payer MEDICARE ==
[2018-03-04 11:55] VITALS: BMI 25.5
[2018-03-04] MEDS ORDERED: Amoxicillin-Clav 875-125 mg Tab PO ONE (12:57)
--- NOTE | 2018-03-04 13:16 | C.PDOC ---
History Of Present Illness 87 y/o F p/w intermittent chest pain x 1 week, last occurring at 4am this morning, intermittent dyspnea, bilateral leg edema, and lightheadedness. Chest pain is midchest, radiates to jaw and shoulder. Denies fever, chills, nausea, vomiting, diarrhea, dysuria, numbness, motor weakness, vertigo. Time Seen by Provider: 03/04/18 12:52 Chief Complaint (Nursing): Dizziness/Lightheaded Past Medical History Vital Signs: Last Vital Signs Temp 98 F 03/04/18 16:23 Pulse 93 H 03/04/18 16:23 Resp 18 03/04/18 16:23 BP 112/56 L 03/04/18 16:23 Pulse Ox 100 03/04/18 17:01 - Medical History PMH: Anemia, Anxiety, Arthritis (BACK AND KNEES AND R SHOULDER), Asthma, Cardia Arrhythmia, CHF, COPD, Diabetes, HTN, Hypercholesterolemia, TIA Denies: Chronic Kidney Disease Surgical History: Appendectomy, Coronary Stent, Endoscopy, Pacemaker (2015) - [facility] Procedures ASSISTANCE WITH RESPIRATORY VENTILATION, 24-96 HRS, CPAP (06/15/17) ASSISTANCE WITH RESPIRATORY VENTILATION, <24 HRS, CPAP (02/06/16) ESOPHAGOGASTRODUODENOSCOPY [EGD] W/CLOSED BIOPSY (12/30/14) LEFT HEART CARDIAC CATH (10/19/13) LT HEART ANGIOCARDIOGRAM (10/19/13) MEASURE OF CARDIAC SAMPL & PRESSURE, L HEART, PERC APPROACH (05/21/15) PACKED CELL TRANSFUSION (12/30/14) PLAIN RADIOGRAPHY OF MULT COR ART USING OTH CONTRAST (05/21/15) TRANSFUSE NONAUT RED BLOOD CELLS IN PERIPH VEIN, PERC (02/06/16) Family History: States: No Known Family Hx - Social History Hx Tobacco Use: No Hx Alcohol Use: No Hx Substance Use: No - Immunization History Hx Tetanus Toxoid Vaccination: No Hx Influenza Vaccination: Yes Hx Pneumococcal Vaccination: Yes Review Of Systems Except As Marked, All Systems Reviewed And Found Negative. Constitutional: Negative for: Fever Gastrointestinal: Negative for: Vomiting Physical Exam - Physical Exam Additional Physical Exam Comments: Constitutional: No acute distress. Head: Normocephalic. Atraumatic. Eyes: PERRL. ENT: Moist mucous membranes. Neck: Supple. Cardiovascular: Regular rate. Radial pulse 2+ bilaterally. Chest: No tenderness. Respiratory: Crackles at bases. GI: Soft. Nontender. Nondistended. Back: No CVA tenderness. Musculoskeletal: No tenderness or swelling of extremities. Skin: No rash. Neurologic: Alert, no focal deficit ED Course And Treatment - Laboratory Results Result Diagrams: 03/04/18 13:23 03/04/18 13:23 O2 Sat by Pulse Oximetry: 100 Medical Decision Making Medical Decision Making: CXR shows cardiomegaly with pulmonary venous congestion. Patient with symptomatic anemia and CHF, Dr. Hernández accepts to his service. Transfusion ordered with Lasix to be given afterwards. Disposition Discussed With : Uriah Hernández Doctor Will See Patient In The: Hospital - Disposition Disposition: HOSPITALIZED Disposition Time: 15:00 Condition: GUARDED - Clinical Impression Clinical Impression: CHF exacerbation, Symptomatic anemia
[2018-03-04 13:29] LABS: BASO % 0.8 % (0.0-2.0); EOS # 0.1 K/uL (0.0-0.7); EOS % 2.4 % (0.0-4.0); HEMOGLOBIN 8.8 g/dL (11.0-16.0); LYMPH # 0.7 K/uL (1.0-4.3); LYMPH % 13.6 % (20.0-40.0); MEAN CORPUSCULAR HEMOGLOBIN 23.9 pg (27.0-31.0); MEAN CORPUSCULAR HGB CONC 31.3 g/dL (33.0-37.0); MEAN PLATELET VOLUME 10.7 fL (7.2-11.7); MONO # 0.7 K/uL (0.0-0.8); MONO % 13.6 % (0.0-10.0); NEUT # 3.4 K/uL (1.8-7.0); NEUT % 69.6 % (50.0-75.0); NRBC % 0.1 % (0.0-2.0); RBC 3.7 Mil/uL (3.80-5.20); WHITE BLOOD COUNT 4.9 K/uL (4.8-10.8)
[2018-03-04 13:31] LABS: MEAN CELL VOLUME 76.3 fL (81.0-99.0)
[2018-03-04 13:38] LABS: INR 1.2; PROTHROMBIN TIME 13.4 SECONDS (9.7-12.2)
[2018-03-04 13:58] LABS: ALB/GLOB RATIO 1.3 (1.0-2.1); ALBUMIN 3.4 g/dL (3.5-5.0); CALCIUM 9.5 mg/dl (8.6-10.4)
[2018-03-04 14:10] LABS: CK-MB 0.98 ng/mL (0.0-3.38); TROPONIN I 0.026 ng/mL (0.00-0.120)
[2018-03-04 14:12] LABS: SQUAMOUS EPITHIAL 5 /hpf (0-5); URINE BILIRUBIN NEGATIVE (NEGATIVE); URINE BLOOD 1+ (NEGATIVE); URINE CLARITY Clear (Clear); URINE COLOR Yellow (YELLOW); URINE GLUCOSE (UA) NORMAL (Normal); URINE LEUKOCYTE ESTERASE TRACE Leu/uL (Negative); URINE PROTEIN NEGATIVE (NEGATIVE); URINE UROBILINOGEN NORMAL mg/dL (0.2-1.0)
--- NOTE | 2018-03-04 14:52 | RAD ---
HISTORY: COMPARISON: No prior. TECHNIQUE: Chest PA and lateral FINDINGS: LINES AND TUBES: None. LUNG AND PLEURA: The lungs are well inflated. There is redemonstration of moderate pulmonary venous congestion. HEART AND MEDIASTINUM: Persistent moderate cardiomegaly and stable position of left-sided pacemaker. The hilar and mediastinal contours are within normal limits. SKELETAL STRUCTURES: Diffuse bone demineralization and chronic osteoporotic compression deformity in the T12 vertebral body. Exaggerated thoracic kyphosis. VISUALIZED UPPER ABDOMEN: Normal. OTHER FINDINGS: There is a large hiatal hernia. IMPRESSION: Persistent moderate cardiomegaly and pulmonary venous congestion. Large hiatal hernia.
--- NOTE | 2018-03-04 17:12 | CP.PCM.HP ---
Present on Admission - Present on Admission Any Indicators Present on Admission: No Past Patient History - Infectious Disease Hx of Infectious Diseases: None - Tetanus Immunizations Tetanus Immunization: Unknown - Past Medical History & Family History Past Medical History?: Yes - Past Social History Smoking Status: Never Smoked - CARDIAC Hx Cardia Arrhythmia: Yes Hx Congestive Heart Failure: Yes Hx Hypercholesterolemia: Yes Hx Hypertension: Yes Hx Pacemaker: Yes (2015) - PULMONARY Hx Asthma: Yes Hx Chronic Obstructive Pulmonary Disease (COPD): Yes - NEUROLOGICAL Hx Transient Ischemic Attacks (TIA): Yes - HEENT Hx HEENT Problems: No - RENAL Hx Chronic Kidney Disease: No - ENDOCRINE/METABOLIC Hx Diabetes Mellitus Type 2: Yes - HEMATOLOGICAL/ONCOLOGICAL Hx Anemia: Yes - INTEGUMENTARY Hx Dermatological Problems: No - MUSCULOSKELETAL/RHEUMATOLOGICAL Hx Arthritis: Yes (BACK AND KNEES AND R SHOULDER) - GASTROINTESTINAL Hx Gastrointestinal Disorders: No - GENITOURINARY/GYNECOLOGICAL Hx Genitourinary Disorders: No - PSYCHIATRIC Hx Anxiety: Yes Hx Substance Use: No - SURGICAL HISTORY Hx Appendectomy: Yes Hx Coronary Stent: Yes - ANESTHESIA Hx Anesthesia: Yes Hx Anesthesia Reactions: No Hx Malignant Hyperthermia: No Meds Allergies/Adverse Reactions: Allergies Allergy/AdvReac Type Severity Reaction Status Date / Time clopidogrel Allergy Mild SWELLING Verified 12/22/17 13:34 Results - Vital Signs Recent Vital Signs: Last Vital Signs Temp 97.7 F 03/04/18 16:50 Pulse 97 H 03/04/18 16:50 Resp 20 03/04/18 16:50 BP 116/52 L 03/04/18 16:50 Pulse Ox 100 03/04/18 17:01 - Labs Result Diagrams: 03/04/18 13:23 03/04/18 13:23 Labs: Laboratory Results - last 24 hr 03/04/18 03/04/18 03/04/18 13:23 13:23 13:23 WBC 4.9 RBC 3.70 L Hgb 8.8 L Hct 28.3 L MCV 76.3 L D MCH 23.9 L MCHC 31.3 L RDW 19.0 H Plt Count 152 MPV 10.7 Neut % (Auto) 69.6 Lymph % (Auto) 13.6 L [place] % (Auto) 13.6 H Eos % (Auto) 2.4 Baso % (Auto) 0.8 Neut # (Auto) 3.4 Lymph # (Auto) 0.7 L [place] # (Auto) 0.7 Eos # (Auto) 0.1 Baso # (Auto) 0.0 PT 13.4 H INR 1.2 APTT 30 Sodium 138 Potassium 3.8 Chloride 100 Carbon Dioxide 29 Anion Gap 13 BUN 13 Creatinine 1.3 H Est GFR ( Amer) 47 Est GFR (Non-Af Amer) 39 Random Glucose 168 H Calcium 9.5 Phosphorus 2.7 Magnesium 1.8 Total Bilirubin 0.6 AST 29 ALT 23 Alkaline Phosphatase 47 Total Creatine Kinase 73 CK-MB (Mass) 0.98 Troponin I 0.0260 NT-Pro-B Natriuret Pep 6840 H Total Protein 6.0 L Albumin 3.4 L Globulin 2.6 Albumin/Globulin Ratio 1.3 Urine Color Urine Clarity Urine pH Ur Specific [place] Urine Protein Urine Glucose (UA) Urine Ketones Urine Blood Urine Nitrate Urine Bilirubin Urine Urobilinogen Ur Leukocyte Esterase Urine WBC (Auto) Urine RBC (Auto) Ur Squamous Epith Cells Blood Type Antibody Screen Crossmatch 03/04/18 03/04/18 13:57 15:58 WBC RBC Hgb Hct MCV MCH MCHC RDW Plt Count MPV Neut % (Auto) Lymph % (Auto) [place] % (Auto) Eos % (Auto) Baso % (Auto) Neut # (Auto) Lymph # (Auto) [place] # (Auto) Eos # (Auto) Baso # (Auto) PT INR APTT Sodium Potassium Chloride Carbon Dioxide Anion Gap BUN Creatinine Est GFR ( Amer) Est GFR (Non-Af Amer) Random Glucose Calcium Phosphorus Magnesium Total Bilirubin AST ALT Alkaline Phosphatase Total Creatine Kinase CK-MB (Mass) Troponin I NT-Pro-B Natriuret Pep Total Protein Albumin Globulin Albumin/Globulin Ratio Urine Color Yellow Urine Clarity Clear Urine pH 8.0 Ur Specific [place] 1.009 Urine Protein Negative Urine Glucose (UA) Normal Urine Ketones Negative Urine Blood 1+ H Urine Nitrate Negative Urine Bilirubin Negative Urine Urobilinogen Normal Ur Leukocyte Esterase Trace Urine WBC (Auto) 2 Urine RBC (Auto) 1 Ur Squamous Epith Cells 5 Blood Type A POSITIVE Antibody Screen Negative Crossmatch See Detail
--- NOTE | 2018-03-04 20:04 | CP.PCM.HP ---
History of Present Illness - History of Present Illness History of Present Illness: COMPREHENSIVE HISTORY & PHYSICAL EXAM Patient is admitted from emergency room with severe fatigue and congestive heart failure HPI Patient has ischemic cardiomyopathy with recurrent congestive heart failure. The last few days patient has been complaining of shortness of breath severe fatigue was evaluated in outpatient with severe fatigue shortness of breath. Patient was evaluated in emergency room was found to be in congestive heart failure with severe anemia of hemoglobin 8.0 g/dL. PAST HIST. Patient has history of coronary artery disease with stents in 2 arteries. Ischemic heart cardiomyopathy with left ventricle ejection fraction less than 30 %. Type II diabetes COPD and AICD. Patient also has a nutritional anemia requiring frequently IN therapy and blood transfusion. PERSONAL HIST: Smoking. N Alcohol. N Allergy N Travel_- . FAMILY HIST : ROS : Constitutional:. Eyes: Negative for redness, swelling, itching, discharge, vision changes, blurry vision, double vision, glaucoma, cataracts, Ears: Negative for hearing loss, ringing, , tinnitus, vertigo Nose: Negative for rhinorrhea, stuffiness, sniffing, itching, postnasal drip, discoloration, nasal congestion and epistaxis. Throat: Negative for throat clearing, sore throat, hoarseness, difficulty swallowing and difficulty speaking. Respiratory: Negative for cough, chest tightness, sputum or phlegm, chronic cough, hemoptysis, wheezing, snoring at night, pleuritic chest pain and daytime somnolence. Cardiovascular: Negative, angina, claudication, , irregular heartbeat, Neurology: Negative for irritability, muscle weakness, numbness and tingling, seizures, tremors, migraines, slurred speech, syncope, memory loss, mood changes , recurrent headaches Gastrointestinal: Negative for difficulty swallowing, diarrhea, constipation, black stools, rectal bleeding, nausea, flatulence, reflux, poor appetite, changes in bowel habits, abdominal pain Genitourinary: Negative for frequent urination, hematuria, discharge, incontinence, urinary retention, frequent UTI, Psychiatric: Negative for depression, anxiety/panic, suicidal tendencies, Musculoskeletal: Negative for swollen joints, back pain, , neck pain, morning stiffness of joints, . Skin: Negative for rash, ulcers, itching, dry skin and pigmented lesions. P/E: Constitutional: Appears stated age and in no apparent distress. Head: Normocephalic. Ears: External ear canals patent without inflammation. Tympanic membranes intact with normal light reflex and landmark. Eyes: Pupils are central, bilaterally equal, symmetrical and reacts to light with normal movements and no icterus or pallor. Nose: External nares are patent. Mucosa is pink Mouth-Throat: Good general appearance and condition. No post-pharyngeal/oropharyngeal erythema and tonsillar hypertrophy. Good dental hygiene. Neck-Lymphatic: Neck is supple with normal ROM, no thyromegaly, lymph nodes or masses. JVD is normal with no carotid bruit. Lungs: bilateral basal rales. Cardiovascular: S1 and S2 are normal with no murmurs, gallops and rub. GI Exam: No hepatomegaly. Abdomen is soft and non-tender. No Organomegaly , masses or hernias are evident and bowel sounds are normal and active. Neurology: Higher function and all cranial nerves intact, with no gross motor or sensory deficit. Superficial and deep reflexes are normal with downwards planters. No cerebellar deficit with normal gait. Musculoskeletal: No tender spots with normal curvature of the spine with no swelling or restricted ROM of the small and large joints. Extremities: Homans sign absent. Intact pulses with no pitting edema, calf tenderness or skin color changes. Skin: No rash, eruptions or abnormal skin pigmentation LAB/RADIOLOGY: ASSESMENT : Iron deficiency anemia. Patient will need 1 unit of packed cell Acute on chronic systolic congestive heart failure with reduced ejection fraction Rule out sepsis Type II diabetes and COPD rule out pneumonia Present on Admission - Present on Admission Any Indicators Present on Admission: No Past Patient History - Infectious Disease Hx of Infectious Diseases: None - Tetanus Immunizations Tetanus Immunization: Unknown - Past Medical History & Family History Past Medical History?: Yes - Past Social History Smoking Status: Never Smoked - CARDIAC Hx Cardia Arrhythmia: Yes Hx Congestive Heart Failure: Yes Hx Hypercholesterolemia: Yes Hx Hypertension: Yes Hx Pacemaker: Yes (2015) - PULMONARY Hx Asthma: Yes Hx Chronic Obstructive Pulmonary Disease (COPD): Yes - NEUROLOGICAL Hx Transient Ischemic Attacks (TIA): Yes - HEENT Hx HEENT Problems: No - RENAL Hx Chronic Kidney Disease: No - ENDOCRINE/METABOLIC Hx Diabetes Mellitus Type 2: Yes - HEMATOLOGICAL/ONCOLOGICAL Hx Anemia: Yes - INTEGUMENTARY Hx Dermatological Problems: No - MUSCULOSKELETAL/RHEUMATOLOGICAL Hx Arthritis: Yes Hx Falls: No - GASTROINTESTINAL Hx Gastrointestinal Disorders: No - GENITOURINARY/GYNECOLOGICAL Hx Genitourinary Disorders: No - PSYCHIATRIC Hx Substance Use: No - SURGICAL HISTORY Hx Appendectomy: Yes Hx Coronary Stent: Yes - ANESTHESIA Hx Anesthesia: Yes Hx Anesthesia Reactions: No Hx Malignant Hyperthermia: No Meds Allergies/Adverse Reactions: Allergies Allergy/AdvReac Type Severity Reaction Status Date / Time clopidogrel Allergy Mild SWELLING Verified 12/22/17 13:34 Results - Vital Signs Recent Vital Signs: Last Vital Signs Temp 97.5 F L 03/04/18 19:08 Pulse 93 H 03/04/18 19:08 Resp 20 03/04/18 19:08 BP 114/55 L 03/04/18 19:08 Pulse Ox 99 03/04/18 17:15 - Labs Result Diagrams: 03/05/18 06:36 03/05/18 06:36 Labs: Laboratory Results - last 24 hr 03/04/18 03/04/18 03/04/18 13:23 13:23 13:23 WBC 4.9 RBC 3.70 L Hgb 8.8 L Hct 28.3 L MCV 76.3 L D MCH 23.9 L MCHC 31.3 L RDW 19.0 H Plt Count 152 MPV 10.7 Neut % (Auto) 69.6 Lymph % (Auto) 13.6 L [place] % (Auto) 13.6 H Eos % (Auto) 2.4 Baso % (Auto) 0.8 Neut # (Auto) 3.4 Lymph # (Auto) 0.7 L [place] # (Auto) 0.7 Eos # (Auto) 0.1 Baso # (Auto) 0.0 PT 13.4 H INR 1.2 APTT 30 Sodium 138 Potassium 3.8 Chloride 100 Carbon Dioxide 29 Anion Gap 13 BUN 13 Creatinine 1.3 H Est GFR ( Amer) 47 Est GFR (Non-Af Amer) 39 POC Glucose (mg/dL) Random Glucose 168 H Calcium 9.5 Phosphorus 2.7 Magnesium 1.8 Total Bilirubin 0.6 AST 29 ALT 23 Alkaline Phosphatase 47 Total Creatine Kinase 73 CK-MB (Mass) 0.98 Troponin I 0.0260 NT-Pro-B Natriuret Pep 6840 H Total Protein 6.0 L Albumin 3.4 L Globulin 2.6 Albumin/Globulin Ratio 1.3 Urine Color Urine Clarity Urine pH Ur Specific [place] Urine Protein Urine Glucose (UA) Urine Ketones Urine Blood Urine Nitrate Urine Bilirubin Urine Urobilinogen Ur Leukocyte Esterase Urine WBC (Auto) Urine RBC (Auto) Ur Squamous Epith Cells Blood Type Antibody Screen Crossmatch 03/04/18 03/04/18 03/04/18 13:57 15:58 17:13 WBC RBC Hgb Hct MCV MCH MCHC RDW Plt Count MPV Neut % (Auto) Lymph % (Auto) [place] % (Auto) Eos % (Auto) Baso % (Auto) Neut # (Auto) Lymph # (Auto) [place] # (Auto) Eos # (Auto) Baso # (Auto) PT INR APTT Sodium Potassium Chloride Carbon Dioxide Anion Gap BUN Creatinine Est GFR ( Amer) Est GFR (Non-Af Amer) POC Glucose (mg/dL) 201 H Random Glucose Calcium Phosphorus Magnesium Total Bilirubin AST ALT Alkaline Phosphatase Total Creatine Kinase CK-MB (Mass) Troponin I NT-Pro-B Natriuret Pep Total Protein Albumin Globulin Albumin/Globulin Ratio Urine Color Yellow Urine Clarity Clear Urine pH 8.0 Ur Specific [place] 1.009 Urine Protein Negative Urine Glucose (UA) Normal Urine Ketones Negative Urine Blood 1+ H Urine Nitrate Negative Urine Bilirubin Negative Urine Urobilinogen Normal Ur Leukocyte Esterase Trace Urine WBC (Auto) 2 Urine RBC (Auto) 1 Ur Squamous Epith Cells 5 Blood Type A POSITIVE Antibody Screen Negative Crossmatch See Detail
[2018-03-04] MEDS ORDERED: Albuterol-Ipratrop 3 mg / 0.5 (3 ml) UD INH PRN (20:45)
[2018-03-04] MEDS: (Lantus) Insulin Glargine, Recombinant SC SCH (22:01)
[2018-03-04] MEDS: (Novolin R) Insulin Human Regular 100 units/ml vial SC SCH (22:02)
--- NOTE | 2018-03-04 22:04 | CP.PCM.CON ---
History of Present Illness - History of Present Illness History of Present Illness: Infectious disease consult. seen 03/04/18 dictated: 03/05 dictation no;[id number]--RPB COMPLETE. REDICTATED 03/08/18 DICT NO # [id number]. Past Patient History - Infectious Disease Hx of Infectious Diseases: None - Tetanus Immunizations Tetanus Immunization: Unknown - Past Medical History & Family History Past Medical History?: Yes - Past Social History Smoking Status: Never Smoked - CARDIAC Hx Cardia Arrhythmia: Yes Hx Congestive Heart Failure: Yes Hx Hypercholesterolemia: Yes Hx Hypertension: Yes Hx Pacemaker: Yes (2015) - PULMONARY Hx Asthma: Yes Hx Chronic Obstructive Pulmonary Disease (COPD): Yes - NEUROLOGICAL Hx Transient Ischemic Attacks (TIA): Yes - HEENT Hx HEENT Problems: No - RENAL Hx Chronic Kidney Disease: No - ENDOCRINE/METABOLIC Hx Diabetes Mellitus Type 2: Yes - HEMATOLOGICAL/ONCOLOGICAL Hx Anemia: Yes - INTEGUMENTARY Hx Dermatological Problems: No - MUSCULOSKELETAL/RHEUMATOLOGICAL Hx Arthritis: Yes Hx Falls: No - GASTROINTESTINAL Hx Gastrointestinal Disorders: No - GENITOURINARY/GYNECOLOGICAL Hx Genitourinary Disorders: No - PSYCHIATRIC Hx Substance Use: No - SURGICAL HISTORY Hx Appendectomy: Yes Hx Coronary Stent: Yes - ANESTHESIA Hx Anesthesia: Yes Hx Anesthesia Reactions: No Hx Malignant Hyperthermia: No Meds Allergies/Adverse Reactions: Allergies Allergy/AdvReac Type Severity Reaction Status Date / Time clopidogrel Allergy Mild SWELLING Verified 12/22/17 13:34 - Medications Medications: Current Medications Albuterol/Ipratropium (Duoneb 3 Mg/0.5 Mg (3 Ml) Ud) 3 ml INH RQ4 PRN PRN Reason: Cough and congestion Aspirin (Ecotrin) 81 mg PO DAILY [facility] Cephalexin Monohydrate (Keflex) 500 mg PO BID [facility] PRN Reason: Protocol Cyproheptadine HCl (Periactin) 4 mg PO TID [facility] Ergocalciferol (Drisdol 50,000 Intl Units Cap) 1 cap PO QWK [facility] Furosemide (Lasix) 40 mg IVP DAILY [facility] Furosemide (Lasix) 20 mg IVP ONCE ONE Stop: 03/04/18 23:01 Insulin Glargine (Lantus) 20 unit SC HS [facility] Last Admin: 03/04/18 22:01 Dose: 20 units Insulin Human Regular (Novolin R) 0 unit SC ACHS [facility] PRN Reason: Protocol Last Admin: 03/04/18 22:02 Dose: Not Given Metoprolol Tartrate (Lopressor) 25 mg PO BID [facility] Repaglinide (Prandin) 2 mg PO DAILY [facility] Rosuvastatin Calcium (Crestor) 20 mg PO HS [facility] Last Admin: 03/04/18 22:01 Dose: 20 mg Sacubitril/Valsartan (Entresto 24 Mg-26 Mg) 1 tab PO DAILY [facility] Ticagrelor (Brilinta) 90 mg PO DAILY [facility] Results - Vital Signs Recent Vital Signs: Last Vital Signs Temp 97.7 F 03/04/18 19:53 Pulse 94 H 03/04/18 19:53 Resp 20 03/04/18 19:53 BP 113/52 L 03/04/18 19:53 Pulse Ox 99 03/04/18 17:15 - Labs Result Diagrams: 03/07/18 06:16 03/07/18 06:16 Labs: Laboratory Results - last 24 hr 03/04/18 03/04/18 03/04/18 13:23 13:23 13:23 WBC 4.9 RBC 3.70 L Hgb 8.8 L Hct 28.3 L MCV 76.3 L D MCH 23.9 L MCHC 31.3 L RDW 19.0 H Plt Count 152 MPV 10.7 Neut % (Auto) 69.6 Lymph % (Auto) 13.6 L [place] % (Auto) 13.6 H Eos % (Auto) 2.4 Baso % (Auto) 0.8 Neut # (Auto) 3.4 Lymph # (Auto) 0.7 L [place] # (Auto) 0.7 Eos # (Auto) 0.1 Baso # (Auto) 0.0 PT 13.4 H INR 1.2 APTT 30 Sodium 138 Potassium 3.8 Chloride 100 Carbon Dioxide 29 Anion Gap 13 BUN 13 Creatinine 1.3 H Est GFR ( Amer) 47 Est GFR (Non-Af Amer) 39 POC Glucose (mg/dL) Random Glucose 168 H Calcium 9.5 Phosphorus 2.7 Magnesium 1.8 Total Bilirubin 0.6 AST 29 ALT 23 Alkaline Phosphatase 47 Total Creatine Kinase 73 CK-MB (Mass) 0.98 Troponin I 0.0260 NT-Pro-B Natriuret Pep 6840 H Total Protein 6.0 L Albumin 3.4 L Globulin 2.6 Albumin/Globulin Ratio 1.3 Urine Color Urine Clarity Urine pH Ur Specific [place] Urine Protein Urine Glucose (UA) Urine Ketones Urine Blood Urine Nitrate Urine Bilirubin Urine Urobilinogen Ur Leukocyte Esterase Urine WBC (Auto) Urine RBC (Auto) Ur Squamous Epith Cells Blood Type Antibody Screen Crossmatch 03/04/18 03/04/18 03/04/18 13:57 15:58 17:13 WBC RBC Hgb Hct MCV MCH MCHC RDW Plt Count MPV Neut % (Auto) Lymph % (Auto) [place] % (Auto) Eos % (Auto) Baso % (Auto) Neut # (Auto) Lymph # (Auto) [place] # (Auto) Eos # (Auto) Baso # (Auto) PT INR APTT Sodium Potassium Chloride Carbon Dioxide Anion Gap BUN Creatinine Est GFR ( Amer) Est GFR (Non-Af Amer) POC Glucose (mg/dL) 201 H Random Glucose Calcium Phosphorus Magnesium Total Bilirubin AST ALT Alkaline Phosphatase Total Creatine Kinase CK-MB (Mass) Troponin I NT-Pro-B Natriuret Pep Total Protein Albumin Globulin Albumin/Globulin Ratio Urine Color Yellow Urine Clarity Clear Urine pH 8.0 Ur Specific [place] 1.009 Urine Protein Negative Urine Glucose (UA) Normal Urine Ketones Negative Urine Blood 1+ H Urine Nitrate Negative Urine Bilirubin Negative Urine Urobilinogen Normal Ur Leukocyte Esterase Trace Urine WBC (Auto) 2 Urine RBC (Auto) 1 Ur Squamous Epith Cells 5 Blood Type A POSITIVE Antibody Screen Negative Crossmatch See Detail
[2018-03-05 06:47] LABS: BASO % 0.6 % (0.0-2.0); EOS # 0.2 K/uL (0.0-0.7); EOS % 2.8 % (0.0-4.0); HEMOGLOBIN 10.8 g/dL (11.0-16.0); LYMPH # 1.3 K/uL (1.0-4.3); LYMPH % 16.8 % (20.0-40.0); MEAN CELL VOLUME 76.4 fL (81.0-99.0); MEAN CORPUSCULAR HEMOGLOBIN 24.9 pg (27.0-31.0); MEAN CORPUSCULAR HGB CONC 32.7 g/dL (33.0-37.0); MEAN PLATELET VOLUME 10.5 fL (7.2-11.7); MONO # 0.9 K/uL (0.0-0.8); MONO % 12.1 % (0.0-10.0); NEUT # 5.2 K/uL (1.8-7.0); NEUT % 67.7 % (50.0-75.0); NRBC % 0.1 % (0.0-2.0); RBC 4.35 Mil/uL (3.80-5.20); WHITE BLOOD COUNT 7.7 K/uL (4.8-10.8)
[2018-03-05 07:41] LABS: ALB/GLOB RATIO 1.5 (1.0-2.1); ALBUMIN 3.6 g/dL (3.5-5.0)
[2018-03-05] MEDS: (Novolin R) Insulin Human Regular 100 units/ml vial SC SCH ×4 (07:57→22:38)
[2018-03-05] MEDS ORDERED: Potassium Chloride 20 mEq ER Tab PO ONE (10:00)
[2018-03-05] MEDS: Sacubitril/Valsartan 24-26mg Tab PO SCH (10:05)
[2018-03-05] MEDS: Enoxaparin 40 mg Syringe SC SCH (10:06)
[2018-03-05] MEDS: Nystatin 100,000 Units/ml Oral Susp 5 ml UD PO SCH ×4 (10:06→21:23)
--- NOTE | 2018-03-05 11:12 | RAD ---
Chest x-ray two views History: Chest pain. Comparison: 03/04/2018 Findings: Biapical pleural thickening with upper lobe granulomatous changes. Linear atelectasis in the right midlung zone. Diffuse increased interstitial lung markings. Right hilar prominence. Few scattered nodular densities in both lung schulte. Left-sided pacer in place. Calcification at the aortic knob. Cardiomegaly. Degenerative changes in the spine and shoulders. Impression: Biapical pleural thickening with upper lobe granulomatous changes. Linear atelectasis in the right midlung zone. Diffuse increased interstitial lung markings. Right hilar prominence. Few scattered nodular densities in both lung schulte. Left-sided pacer in place. Calcification at the aortic knob. Cardiomegaly.
--- NOTE | 2018-03-05 14:23 | CP.PCM.PN ---
Subjective - Date & Time of Evaluation Date of Evaluation: 03/05/18 Time of Evaluation: 14:21 - Subjective Subjective: CHIEF COMPLAINTS TODAY : Shortness of breath wheezing mild cough ROS. HEENT : N. Resp : No,pleuritic CP ,or hemoptysis Cardio : No anginal CP, PND, orthopnea, palpitation GI : No abd.pain, n/v ,diarrhea or GI bleeding . 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 Musculoskel : No joint swelling , Derm : No rash Psych : Normal affect. Ext : No swelling ,calf pain PE. Pt. is alert awake in no distress. V.S As noted in the chart Head ,ear nose,throat and eyes : Normal. Neck : Supple with normal carotids. Lungs bilateral rhonchi and rales Heart : S1 & S2 normal with S4. No murmur. Abd : Soft non tender with normal bowel sounds. Neuro : Moves all ext. with no localized deficit. Ext : No edema with intact pulses.Non tender calves Derm : No rashes or decubitus ulcer. LABS/RADIOLOGY: ASSESSMENT/PLAN : After 1 unit of packed cells hemoglobin is now 10.8 g/dL Continue IV Lasix. ID evaluation for possible pneumonia. Objective - Vital Signs/Intake and Output Vital Signs (last 24 hours): Temp Pulse Resp BP Pulse Ox 97.6 F 100 H 18 121/67 98 03/05/18 07:00 03/05/18 07:00 03/05/18 07:00 03/05/18 10:04 03/05/18 07:00 Intake and Output: 03/05/18 03/05/18 11:59 23:59 Intake Total 110 Balance 110 - Medications Medications: Current Medications Albuterol/Ipratropium (Duoneb 3 Mg/0.5 Mg (3 Ml) Ud) 3 ml INH RQ4 PRN PRN Reason: Cough and congestion Aspirin (Ecotrin) 81 mg PO DAILY [facility] Last Admin: 03/05/18 10:05 Dose: 81 mg Cyproheptadine HCl (Periactin) 4 mg PO TID [facility] Last Admin: 03/05/18 10:05 Dose: 4 mg Enoxaparin Sodium (Lovenox) 40 mg SC DAILY [facility] Last Admin: 03/05/18 10:06 Dose: 40 mg Ergocalciferol (Drisdol 50,000 Intl Units Cap) 1 cap PO QWK [facility] Furosemide (Lasix) 40 mg IVP DAILY [facility] Last Admin: 03/05/18 10:04 Dose: 40 mg Ceftriaxone Sodium 1 gm/ (Sodium Chloride) 100 mls @ 100 mls/hr IVPB Q24H [facility] PRN Reason: Protocol Last Admin: 03/05/18 01:09 Dose: 100 mls/hr Insulin Glargine (Lantus) 20 unit SC HS [facility] Last Admin: 03/04/18 22:01 Dose: 20 units Insulin Human Regular (Novolin R) 0 unit SC ACHS [facility] PRN Reason: Protocol Last Admin: 03/04/18 22:02 Dose: Not Given Metoprolol Tartrate (Lopressor) 25 mg PO BID [facility] Last Admin: 03/05/18 10:03 Dose: 25 mg Nystatin (Nystatin Oral Susp) 5 ml PO QID [facility] Last Admin: 03/05/18 10:06 Dose: 5 ml Repaglinide (Prandin) 2 mg PO DAILY [facility] Last Admin: 03/05/18 10:05 Dose: 2 mg Rosuvastatin Calcium (Crestor) 20 mg PO HS [facility] Last Admin: 03/04/18 22:01 Dose: 20 mg Sacubitril/Valsartan (Entresto 24 Mg-26 Mg) 1 tab PO DAILY [facility] Last Admin: 03/05/18 10:05 Dose: 1 tab Ticagrelor (Brilinta) 90 mg PO DAILY [facility] Last Admin: 03/05/18 10:05 Dose: 90 mg - Labs Labs: 03/05/18 06:36 03/05/18 06:36 PT 13.4 SECONDS (9.7-12.2) H 03/04/18 13:23 INR 1.2 03/04/18 13:23 APTT 30 SECONDS (21-34) 03/04/18 13:23
--- NOTE | 2018-03-05 20:12 | CP.PCM.PN ---
Subjective - Date & Time of Evaluation Date of Evaluation: 03/05/18 Time of Evaluation: 20:12 - Subjective Subjective: DICTATED ; 03/05/18 SEE PROGRESS NOTE REPORTS; DICTATION NO: [id number].--NOT COMPLETE. CHIEF COMPLAINTS TODAY : afebrile, c/o SOB AT REST. +VE DRY COUGH DENIES CHEST PAIN ROS. HEENT : N. Resp : +VE cough, NO wheezing ,pleuritic CP ,or hemoptysis Cardio : No anginal CP, PND, orthopnea, palpitation GI : No abd.pain, n/v ,diarrhea or GI bleeding . 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 Musculoskel : No joint swelling , Derm : No rash Psych : Normal affect. Ext : No swelling ,calf pain PE. Pt. is alert awake in no distress. V.S As noted in the chart MILDLY DYSPNEIC AT REST Head ,ear nose,throat and eyes : Normal. Neck : Supple with normal carotids. Lungs: BASILAR RALES Heart : S1 & S2 normal with S4. No murmur. Abd : Soft non tender with normal bowel sounds. Neuro : Moves all ext. with no localized deficit. Ext : 1+EDEMA, with intact pulses.Non tender calves Derm : No rashes or decubitus ulcer. LABS/RADIOLOGY: BLOOD CULTURE 03/04/18 -VE FOR 24 HOURS. uRINE CULTURE 03/04/18-P ASSESSMENT. SEPSIS R/O PNEUMONIA. R/O UTI. EXACERBATION OF CHF. ISCHEMIC CARDIOMYOPATHY AICD. RENAL INSUFFICIENCY. /PLAN : CONTINUE iv ANTIBIOTICS. DIURESE IS PER PMD. .fOLLOW-UP CULTURES TO ADJUST ANTIBIOTICS. Objective - Vital Signs/Intake and Output Vital Signs (last 24 hours): Temp Pulse Resp BP Pulse Ox 97.7 F 97 H 20 99/59 L 100 03/05/18 15:00 03/05/18 17:00 03/05/18 15:00 03/05/18 19:19 03/05/18 15:00 - Medications Medications: Current Medications Albuterol/Ipratropium (Duoneb 3 Mg/0.5 Mg (3 Ml) Ud) 3 ml INH RQ4 PRN PRN Reason: Cough and congestion Aspirin (Ecotrin) 81 mg PO DAILY [facility] Last Admin: 03/05/18 10:05 Dose: 81 mg Cyproheptadine HCl (Periactin) 4 mg PO TID [facility] Last Admin: 03/05/18 19:14 Dose: 4 mg Enoxaparin Sodium (Lovenox) 40 mg SC DAILY [facility] Last Admin: 03/05/18 10:06 Dose: 40 mg Ergocalciferol (Drisdol 50,000 Intl Units Cap) 1 cap PO QWK [facility] Furosemide (Lasix) 40 mg IVP DAILY [facility] Last Admin: 03/05/18 10:04 Dose: 40 mg Ceftriaxone Sodium 1 gm/ (Sodium Chloride) 100 mls @ 100 mls/hr IVPB Q24H [facility] PRN Reason: Protocol Last Admin: 03/05/18 01:09 Dose: 100 mls/hr Insulin Glargine (Lantus) 20 unit SC HS [facility] Last Admin: 03/04/18 22:01 Dose: 20 units Insulin Human Regular (Novolin R) 0 unit SC ACHS [facility] PRN Reason: Protocol Last Admin: 03/05/18 19:20 Dose: Not Given Metoprolol Tartrate (Lopressor) 25 mg PO BID [facility] Last Admin: 03/05/18 19:19 Dose: Not Given Nystatin (Nystatin Oral Susp) 5 ml PO QID [facility] Last Admin: 03/05/18 19:20 Dose: 5 ml Repaglinide (Prandin) 2 mg PO DAILY [facility] Last Admin: 03/05/18 10:05 Dose: 2 mg Rosuvastatin Calcium (Crestor) 20 mg PO HS [facility] Last Admin: 03/04/18 22:01 Dose: 20 mg Sacubitril/Valsartan (Entresto 24 Mg-26 Mg) 1 tab PO DAILY [facility] Last Admin: 03/05/18 10:05 Dose: 1 tab Ticagrelor (Brilinta) 90 mg PO DAILY [facility] Last Admin: 03/05/18 10:05 Dose: 90 mg - Labs Labs: 03/05/18 06:36 03/05/18 06:36 PT 13.4 SECONDS (9.7-12.2) H 03/04/18 13:23 INR 1.2 03/04/18 13:23 APTT 30 SECONDS (21-34) 03/04/18 13:23
--- NOTE | 2018-03-05 22:18 | PN ---
Copied To: Philly Padilla MD Attending MD: Philly Padilla MD DATE: 03/05/2018 TIME: 08:45 p.m. CHIEF COMPLAINT: Shortness of breath, still complaining of tiredness and wheezing. Also complains of cough, unable to bring out any expectoration. The patient received one unit of packed red blood cells today. REVIEW OF SYSTEMS: As above. RESPIRATORY: The patient complains of shortness of breath, but denies any chest pain or hemoptysis. CARDIOVASCULAR: Denies any orthopnea or palpitations. GASTROINTESTINAL: Unremarkable. GENITOURINARY: Unremarkable. MUSCULOSKELETAL: Denies any joint swelling. SKIN: No rashes. EXTREMITIES: 1+ edema. PHYSICAL EXAMINATION: GENERAL: The patient is awake and alert. is slightly better. VITAL SIGNS: Blood pressure 121/67, respirations 18, pulse of 100, temperature 97.6, and pulse oximetry 98%. Intake was 110 and balance was 110. MEDICATIONS: As per chart reviewed, the patient is on ceftriaxone 1 g once a day daily. Accu-Cheks and is having coverage. Pulmonary toilet. LABORATORY DATA: WBC 7.7, H and H of 10.8 and 33.2, and platelets of 153. IMPRESSION: 1. Exacerbation of congestive heart failure, rule out pneumonia and rule out sepsis. 2. Ischemic cardiomyopathy. 3. Automatic implantable cardioverter-defibrillator. 4. Symptomatic anemia. 5. Non-insulin dependent diabetes mellitus type 2. SUGGESTIONS: Continue IV ceftriaxone 1 g once a day daily. Continue diuresis as ordered by the PMD. We will follow cultures. We adjust the antibiotics. The patient previously was on p.o. Keflex, but not improving. We will follow along with you. Thank you very much. Philly Padilla MD
[2018-03-05] MEDS: (Lantus) Insulin Glargine, Recombinant SC SCH (22:40)
--- NOTE | 2018-03-06 06:20 | CON ---
Copied To: Philly Padilla MD Attending MD: Philly Padilla MD DATE: 03/04/2018 INFECTIOUS DISEASE CONSULTATION The patient was seen on 03/04/2018. REQUESTED BY: Uriah Hernández MD REASON FOR CONSULTATION: Extreme fatigue and congestive heart failure, rule out pneumonia. HISTORY OF PRESENT ILLNESS: The patient is an 87-year-old Yakut speaking female well known to me with multiple medical problems including ischemic cardiomyopathy; coronary artery disease with stents in two arteries, also with ejection fraction 30%; type 2 diabetes mellitus; COPD; and AICD who is admitted via the emergency room with severe fatigue and congestive heart failure. The patient has not been feeling well for the past two days and complaining of shortness of breath and extreme fatigue and also with loss of appetite. The patient was evaluated in the emergency room and was found to be in congestive heart failure with severe anemia with a hemoglobin of 8 g/dL. The patient was therefore advised admission. Infectious disease consultation is requested by Dr. Hernández with reason for consultation to rule out sepsis verus pneumonia. The patient also has a history of recurrent UTIs. PAST MEDICAL HISTORY: As above, history of ischemic cardiomyopathy, recurrent CHF, history of pneumonia, history of coronary artery disease with two stents and also with AICD, diabetes mellitus type 2 and COPD and nutritional anemia. SOCIAL HISTORY: She is a nonsmoker and nonalcoholic. She lives with her and family. REVIEW OF SYSTEMS: CONSTITUTIONAL: The patient is extremely weak. RESPIRATORY: Complains of shortness of breath and difficulty ambulating with dyspnea on exertion. Also complains of cough, unable to bring out expectoration. CARDIOVASCULAR SYSTEM: Complains of some chest discomfort, but it comes and goes. Chest pain is not radiating to the arms or to the neck or down the throat. GASTROINTESTINAL: Unremarkable. Poor appetite, not eating good for the past few days as per her . GENITOURINARY: Unremarkable. Denies any dysuria, hematuria, or hesitancy. CENTRAL NERVOUS SYSTEM: No headache. No seizure. Denies sinus problems. MEDICATIONS: As per chart reviewed. Medications as noted: The patient is on Keflex 500 mg b.i.d., Lopressor 25 mg p.o. b.i.d., Prandin 2 mg p.o. daily, also getting Lantus 20 units at bedtime and insulin human regular Novolin R as needed according to the protocol, Lasix 40 mg once daily, Periactin 4 mg p.o. t.i.d., aspirin 81 mg p.o. once a day daily. The patient is also on Crestor 20 mg p.o. at bedtime, Entresto 24 mg/26 mg one tablet daily, Brilinta 90 mg p.o. daily. PHYSICAL EXAMINATION: GENERAL: The patient is awake, alert, very weak and pale looking. VITAL SIGNS: Blood pressure 113/52, temperature 97.7, pulse is 94, respirations 20, pulse ox is 99%. LABORATORY DATA: Chest x-ray shows pulmonary venous congestion, official report pending. Liver function tests are unremarkable. WBC 4.9, hemoglobin of 8.8, hematocrit of 28.3, platelets of 152. PT is 13.4, INR of 1.2, PTT is 30. Potassium 3.8, creatinine 1.3, BUN of 13. Liver function tests: Bilirubin is normal, alkaline phosphatase 47, AST normal of 29, ALT 23. ProBNP was 6840. Troponins are negative, first set. UA shows 1+ blood, leukocytes trace, wbc's 2. IMPRESSION: 1. Exacerbation of congestive heart failure. 2. Ischemic cardiomyopathy. 3. Rule out pneumonia. 4. Type 2 diabetes mellitus. 5. Hypertension. PLAN: Suggest bay cultures. Discontinue p.o. Keflex. We will initiate IV Rocephin 1 g every 12 hourly. Follow up repeat blood workups and liver function tests. We will follow up repeat chest x-rays and recommend any further therapy. Sputum Gram stain cultures and throat cultures also to be obtained and MRSA screen. We will follow along with you. Thank you very much for allowing me to participate in the care of your patient. We will follow. Philly Padilla MD
[2018-03-06] MEDS: (Novolin R) Insulin Human Regular 100 units/ml vial SC SCH ×3 (07:56→21:35)
[2018-03-06 08:42] LABS: BASO # 0.1 K/uL (0.0-0.2); BASO % 0.7 % (0.0-2.0); EOS # 0.3 K/uL (0.0-0.7); EOS % 4.1 % (0.0-4.0); HEMOGLOBIN 10.7 g/dL (11.0-16.0); LYMPH % 13.4 % (20.0-40.0); MEAN CELL VOLUME 76.5 fL (81.0-99.0); MEAN CORPUSCULAR HEMOGLOBIN 25.4 pg (27.0-31.0); MEAN CORPUSCULAR HGB CONC 33.2 g/dL (33.0-37.0); MEAN PLATELET VOLUME 10.9 fL (7.2-11.7); MONO # 0.8 K/uL (0.0-0.8); MONO % 10.7 % (0.0-10.0); NEUT # 5.3 K/uL (1.8-7.0); NEUT % 71.1 % (50.0-75.0); NRBC % 0.1 % (0.0-2.0); RBC 4.2 Mil/uL (3.80-5.20); RED CELL DISTRIBUTION WIDTH 18.6 % (11.5-14.5); WHITE BLOOD COUNT 7.4 K/uL (4.8-10.8)
[2018-03-06 09:23] LABS: ALB/GLOB RATIO 1.2 (1.0-2.1); CALCIUM 9.2 mg/dl (8.6-10.4)
[2018-03-06] MEDS: Nystatin 100,000 Units/ml Oral Susp 5 ml UD PO SCH ×4 (10:50→21:35)
[2018-03-06] MEDS: Sacubitril/Valsartan 24-26mg Tab PO SCH (10:53)
[2018-03-06] MEDS: Enoxaparin 40 mg Syringe SC SCH (12:53)
[2018-03-06] MEDS: (Lantus) Insulin Glargine, Recombinant SC SCH (21:35)
[2018-03-07 06:27] LABS: BASO # 0.1 K/uL (0.0-0.2); BASO % 1.2 % (0.0-2.0); EOS # 0.4 K/uL (0.0-0.7); EOS % 6.2 % (0.0-4.0); HEMOGLOBIN 10.9 g/dL (11.0-16.0); LYMPH # 0.9 K/uL (1.0-4.3); MEAN CELL VOLUME 77.4 fL (81.0-99.0); MEAN CORPUSCULAR HEMOGLOBIN 25.1 pg (27.0-31.0); MEAN CORPUSCULAR HGB CONC 32.5 g/dL (33.0-37.0); MEAN PLATELET VOLUME 11.1 fL (7.2-11.7); MONO # 0.7 K/uL (0.0-0.8); MONO % 11.1 % (0.0-10.0); NEUT # 4.2 K/uL (1.8-7.0); NEUT % 67.5 % (50.0-75.0); RBC 4.35 Mil/uL (3.80-5.20); RED CELL DISTRIBUTION WIDTH 18.5 % (11.5-14.5); WHITE BLOOD COUNT 6.2 K/uL (4.8-10.8)
[2018-03-07 07:12] LABS: ALB/GLOB RATIO 1.2 (1.0-2.1); ALBUMIN 3.3 g/dL (3.5-5.0); CALCIUM 9.3 mg/dl (8.6-10.4)
[2018-03-07] MEDS: (Novolin R) Insulin Human Regular 100 units/ml vial SC SCH ×4 (07:51→21:21)
--- NOTE | 2018-03-07 08:11 | CARD ---
APPROVED REPORT Date of service: 03/04/2018 EKG Measurement Heart [id number] <Conclusion> Sinus rhythm with frequent ventricular-paced complexes Possible Left atrial enlargement Rightward axis Nonspecific intraventricular block T wave abnormality, consider inferolateral ischemia Abnormal ECG
[2018-03-07] MEDS: Enoxaparin 40 mg Syringe SC SCH (10:33)
[2018-03-07] MEDS: Nystatin 100,000 Units/ml Oral Susp 5 ml UD PO SCH ×4 (10:33→21:31)
[2018-03-07] MEDS: Sacubitril/Valsartan 24-26mg Tab PO SCH (10:33)
--- NOTE | 2018-03-07 14:02 | CP.PCM.PN ---
Subjective - Date & Time of Evaluation Date of Evaluation: 03/07/18 Time of Evaluation: 14:02 - Subjective Subjective: CHIEF COMPLAINTS TODAY : Shortness of breath wheezing mild cough ROS. HEENT : N. Resp : No,pleuritic CP ,or hemoptysis Cardio : No anginal CP, PND, orthopnea, palpitation GI : No abd.pain, n/v ,diarrhea or GI bleeding . 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 Musculoskel : No joint swelling , Derm : No rash Psych : Normal affect. Ext : No swelling ,calf pain PE. Pt. is alert awake in no distress. V.S As noted in the chart Head ,ear nose,throat and eyes : Normal. Neck : Supple with normal carotids. Lungs bilateral rhonchi and rales Heart : S1 & S2 normal with S4. No murmur. Abd : Soft non tender with normal bowel sounds. Neuro : Moves all ext. with no localized deficit. Ext : No edema with intact pulses.Non tender calves Derm : No rashes or decubitus ulcer. LABS/RADIOLOGY: ASSESSMENT/PLAN : After 1 unit of packed cells hemoglobin is now 10.8 g/dL Continue IV Lasix. Objective - Vital Signs/Intake and Output Vital Signs (last 24 hours): Temp Pulse Resp BP Pulse Ox 98.8 F 108 H 18 131/89 98 03/07/18 07:00 03/07/18 07:07 03/07/18 07:00 03/07/18 10:33 03/07/18 07:00 - Medications Medications: Current Medications Albuterol/Ipratropium (Duoneb 3 Mg/0.5 Mg (3 Ml) Ud) 3 ml INH RQ4 PRN PRN Reason: Cough and congestion Aspirin (Ecotrin) 81 mg PO DAILY [facility] Last Admin: 03/07/18 10:33 Dose: 81 mg Cyproheptadine HCl (Periactin) 4 mg PO TID [facility] Last Admin: 03/07/18 13:29 Dose: 4 mg Enoxaparin Sodium (Lovenox) 40 mg SC DAILY [facility] Last Admin: 03/07/18 10:33 Dose: 40 mg Ergocalciferol (Drisdol 50,000 Intl Units Cap) 1 cap PO QWK [facility] Furosemide (Lasix) 40 mg IVP DAILY [facility] Last Admin: 03/07/18 10:33 Dose: 40 mg Ceftriaxone Sodium 1 gm/ (Sodium Chloride) 100 mls @ 100 mls/hr IVPB Q24H [facility] PRN Reason: Protocol Last Admin: 03/07/18 02:30 Dose: 100 mls/hr Insulin Glargine (Lantus) 20 unit SC HS [facility] Last Admin: 03/06/18 21:35 Dose: Not Given Insulin Human Regular (Novolin R) 0 unit SC ACHS [facility] PRN Reason: Protocol Last Admin: 03/07/18 13:29 Dose: 2 u Metoprolol Tartrate (Lopressor) 25 mg PO BID [facility] Last Admin: 03/07/18 10:33 Dose: 25 mg Nystatin (Nystatin Oral Susp) 5 ml PO QID [facility] Last Admin: 03/07/18 13:29 Dose: 5 ml Repaglinide (Prandin) 2 mg PO DAILY [facility] Last Admin: 03/07/18 10:33 Dose: 2 mg Rosuvastatin Calcium (Crestor) 20 mg PO HS [facility] Last Admin: 03/06/18 21:34 Dose: 20 mg Sacubitril/Valsartan (Entresto 24 Mg-26 Mg) 1 tab PO DAILY [facility] Last Admin: 03/07/18 10:33 Dose: 1 tab Ticagrelor (Brilinta) 90 mg PO DAILY [facility] Last Admin: 03/07/18 10:33 Dose: 90 mg - Labs Labs: 03/07/18 06:16 03/07/18 06:16 PT 13.4 SECONDS (9.7-12.2) H 03/04/18 13:23 INR 1.2 03/04/18 13:23 APTT 30 SECONDS (21-34) 03/04/18 13:23
--- NOTE | 2018-03-07 17:31 | CP.PCM.PN ---
Subjective - Date & Time of Evaluation Date of Evaluation: 03/07/18 Time of Evaluation: 17:31 - Subjective Subjective: CHIEF COMPLAINTS TODAY : afebrile, PATIENT SITTING UP IN THE BED, C/O SOB ON EXERTION ROS. HEENT : N. Resp : +VE cough, NO wheezing ,pleuritic CP ,or hemoptysis Cardio : No anginal CP, PND, orthopnea, palpitation GI : No abd.pain, n/v ,diarrhea or GI bleeding . 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 Musculoskel : No joint swelling , Derm : No rash Psych : Normal affect. Ext : No swelling ,calf pain PE. Pt. is alert awake in no distress. V.S As noted in the chart MILDLY DYSPNEIC AT REST Head ,ear nose,throat and eyes : Normal. Neck : Supple with normal carotids. Lungs: BASILAR RALES Heart : S1 & S2 normal with S4. No murmur. Abd : Soft non tender with normal bowel sounds. Neuro : Moves all ext. with no localized deficit. Ext : 1+EDEMA, with intact pulses.Non tender calves Derm : No rashes or decubitus ulcer. LABS/RADIOLOGY: wbc 7.4, H/H 10.7/32.2 . pLATELETS 146 .CREAT 1.6/bun 17 LFTS N BLOOD CULTURE 03/04/18 -VE FOR 48HRS.. uRINE CULTURE 03/04/18-NEGATIVE GROWTH. ASSESSMENT. SEPSIS R/O PNEUMONIA. EXACERBATION OF CHF. ISCHEMIC CARDIOMYOPATHY AICD. RENAL INSUFFICIENCY. /PLAN : CONTINUE iv ANTIBIOTICS. DIURESE IS PER PMD. .fOLLOW-UP CULTURES TO ADJUST ANTIBIOTICS. Objective - Vital Signs/Intake and Output Vital Signs (last 24 hours): Temp Pulse Resp BP Pulse Ox 97.5 F L 90 20 101/51 L 96 03/07/18 15:49 03/07/18 15:49 03/07/18 15:49 03/07/18 15:49 03/07/18 15:49 - Medications Medications: Current Medications Albuterol/Ipratropium (Duoneb 3 Mg/0.5 Mg (3 Ml) Ud) 3 ml INH RQ4 PRN PRN Reason: Cough and congestion Aspirin (Ecotrin) 81 mg PO DAILY [facility] Last Admin: 03/07/18 10:33 Dose: 81 mg Cyproheptadine HCl (Periactin) 4 mg PO TID [facility] Last Admin: 03/07/18 13:29 Dose: 4 mg Enoxaparin Sodium (Lovenox) 40 mg SC DAILY [facility] Last Admin: 03/07/18 10:33 Dose: 40 mg Ergocalciferol (Drisdol 50,000 Intl Units Cap) 1 cap PO QWK [facility] Furosemide (Lasix) 40 mg IVP DAILY [facility] Last Admin: 03/07/18 10:33 Dose: 40 mg Ceftriaxone Sodium 1 gm/ (Sodium Chloride) 100 mls @ 100 mls/hr IVPB Q24H [facility] PRN Reason: Protocol Last Admin: 03/07/18 02:30 Dose: 100 mls/hr Insulin Glargine (Lantus) 20 unit SC HS [facility] Last Admin: 03/06/18 21:35 Dose: Not Given Insulin Human Regular (Novolin R) 0 unit SC ACHS [facility] PRN Reason: Protocol Last Admin: 03/07/18 13:29 Dose: 2 u Metoprolol Tartrate (Lopressor) 25 mg PO BID [facility] Last Admin: 03/07/18 10:33 Dose: 25 mg Nystatin (Nystatin Oral Susp) 5 ml PO QID [facility] Last Admin: 03/07/18 13:29 Dose: 5 ml Repaglinide (Prandin) 2 mg PO DAILY [facility] Last Admin: 03/07/18 10:33 Dose: 2 mg Rosuvastatin Calcium (Crestor) 20 mg PO HS [facility] Last Admin: 03/06/18 21:34 Dose: 20 mg Sacubitril/Valsartan (Entresto 24 Mg-26 Mg) 1 tab PO DAILY [facility] Last Admin: 03/07/18 10:33 Dose: 1 tab Ticagrelor (Brilinta) 90 mg PO DAILY [facility] Last Admin: 03/07/18 10:33 Dose: 90 mg - Labs Labs: 03/07/18 06:16 03/07/18 06:16 PT 13.4 SECONDS (9.7-12.2) H 03/04/18 13:23 INR 1.2 03/04/18 13:23 APTT 30 SECONDS (21-34) 03/04/18 13:23
[2018-03-07] MEDS: (Lantus) Insulin Glargine, Recombinant SC SCH (21:21)
[2018-03-08] MEDS: (Novolin R) Insulin Human Regular 100 units/ml vial SC SCH ×4 (07:15→21:54)
[2018-03-08] MEDS: Enoxaparin 40 mg Syringe SC SCH (10:33)
[2018-03-08] MEDS: Nystatin 100,000 Units/ml Oral Susp 5 ml UD PO SCH ×4 (10:33→22:00)
[2018-03-08] MEDS: Sacubitril/Valsartan 24-26mg Tab PO SCH (10:34)
--- NOTE | 2018-03-08 13:03 | CP.PCM.PN ---
Subjective - Date & Time of Evaluation Date of Evaluation: 03/08/18 Time of Evaluation: 13:03 - Subjective Subjective: CHIEF COMPLAINTS TODAY : Shortness of breath wheezing mild cough ROS. HEENT : N. Resp : No,pleuritic CP ,or hemoptysis Cardio : No anginal CP, PND, orthopnea, palpitation GI : No abd.pain, n/v ,diarrhea or GI bleeding . 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 Musculoskel : No joint swelling , Derm : No rash Psych : Normal affect. Ext : No swelling ,calf pain PE. Pt. is alert awake in no distress. V.S As noted in the chart Head ,ear nose,throat and eyes : Normal. Neck : Supple with normal carotids. Lungs bilateral rhonchi and rales Heart : S1 & S2 normal with S4. No murmur. Abd : Soft non tender with normal bowel sounds. Neuro : Moves all ext. with no localized deficit. Ext : No edema with intact pulses.Non tender calves Derm : No rashes or decubitus ulcer. LABS/RADIOLOGY: ASSESSMENT/PLAN : discussed with patient's and patient. Due to patient's mental condition with recurrent shortness of breath and generalized weakness patient will benefit for short-term rehab. They are agreed for [facility] rehab. Objective - Vital Signs/Intake and Output Vital Signs (last 24 hours): Temp Pulse Resp BP Pulse Ox 97.9 F 96 H 20 106/68 98 03/08/18 07:00 03/08/18 12:07 03/08/18 07:00 03/08/18 12:07 03/08/18 07:00 Intake and Output: 03/08/18 03/08/18 11:59 23:59 Intake Total 110 Balance 110 - Medications Medications: Current Medications Albuterol/Ipratropium (Duoneb 3 Mg/0.5 Mg (3 Ml) Ud) 3 ml INH RQ4 PRN PRN Reason: Cough and congestion Aspirin (Ecotrin) 81 mg PO DAILY [facility] Last Admin: 03/08/18 10:34 Dose: 81 mg Cyproheptadine HCl (Periactin) 4 mg PO TID [facility] Last Admin: 03/08/18 10:34 Dose: 4 mg Enoxaparin Sodium (Lovenox) 40 mg SC DAILY [facility] Last Admin: 08/21/18 10:33 Dose: 40 mg Ergocalciferol (Drisdol 50,000 Intl Units Cap) 1 cap PO QWK [facility] Furosemide (Lasix) 40 mg IVP DAILY [facility] Last Admin: 03/08/18 10:32 Dose: Not Given Gabapentin (Neurontin) 300 mg PO DAILY [facility] Last Admin: 03/08/18 10:33 Dose: 300 mg Ceftriaxone Sodium 1 gm/ (Sodium Chloride) 100 mls @ 100 mls/hr IVPB Q24H [facility] PRN Reason: Protocol Last Admin: 03/08/18 01:37 Dose: 100 mls/hr Insulin Glargine (Lantus) 20 unit SC HS [facility] Last Admin: 03/07/18 21:21 Dose: Not Given Insulin Human Regular (Novolin R) 0 unit SC ACHS [facility] PRN Reason: Protocol Last Admin: 03/08/18 12:51 Dose: 4 u Metoprolol Tartrate (Lopressor) 25 mg PO BID [facility] Last Admin: 03/08/18 10:33 Dose: Not Given Nystatin (Nystatin Oral Susp) 5 ml PO QID [facility] Last Admin: 03/08/18 10:33 Dose: 5 ml Repaglinide (Prandin) 2 mg PO DAILY [facility] Last Admin: 03/08/18 10:34 Dose: 2 mg Rosuvastatin Calcium (Crestor) 20 mg PO HS [facility] Last Admin: 03/07/18 21:31 Dose: 20 mg Sacubitril/Valsartan (Entresto 24 Mg-26 Mg) 1 tab PO DAILY [facility] Last Admin: 03/08/18 10:34 Dose: 1 tab Ticagrelor (Brilinta) 90 mg PO DAILY [facility] Last Admin: 03/08/18 10:34 Dose: 90 mg - Labs Labs: 03/07/18 06:16 03/07/18 06:16 PT 13.4 SECONDS (9.7-12.2) H 03/04/18 13:23 INR 1.2 03/04/18 13:23 APTT 30 SECONDS (21-34) 03/04/18 13:23
--- NOTE | 2018-03-08 15:33 | CP.PCM.PN ---
Subjective - Date & Time of Evaluation Date of Evaluation: 03/08/18 Time of Evaluation: 15:33 - Subjective Subjective: CHIEF COMPLAINTS TODAY : afebrile, FEELS WEAK/AND TIRED. LESS SOB LESS COUGH ROS. HEENT : N. Resp : +VE cough, NO wheezing ,pleuritic CP ,or hemoptysis Cardio : No anginal CP, PND, orthopnea, palpitation GI : No abd.pain, n/v ,diarrhea or GI bleeding . 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 Musculoskel : No joint swelling , Derm : No rash Psych : Normal affect. Ext : No swelling ,calf pain PE. Pt. is alert awake in no distress. V.S As noted in the chart MILDLY DYSPNEIC AT REST Head ,ear nose,throat and eyes : Normal. Neck : Supple with normal carotids. Lungs: BASILAR RALES Heart : S1 & S2 normal with S4. No murmur. Abd : Soft non tender with normal bowel sounds. Neuro : Moves all ext. with no localized deficit. Ext : 1+EDEMA, with intact pulses.Non tender calves Derm : No rashes or decubitus ulcer. LABS/RADIOLOGY: wbc 6.2, h&h STABLE 10.9. pLATELETS 135. CREAT 1.6/bun 22 LFTS N BLOOD CULTURE 03/04/18 -VE FOR 3 DAYS. uRINE CULTURE 03/04/18-NEGATIVE GROWTH. ASSESSMENT. EXACERBATION OF CHF. ISCHEMIC CARDIOMYOPATHY AICD. ANEMIA SYMPTOMATIC RENAL INSUFFICIENCY. /PLAN : CPM DIURESIS IS PER PMD. DC ABX ON DC TO [facility]. Objective - Vital Signs/Intake and Output Vital Signs (last 24 hours): Temp Pulse Resp BP Pulse Ox 97.9 F 96 H 20 108/64 98 03/08/18 07:00 03/08/18 12:07 03/08/18 07:00 03/08/18 13:14 03/08/18 07:00 Intake and Output: 03/08/18 03/08/18 06:59 18:59 Intake Total 410 Balance 410 - Medications Medications: Current Medications Albuterol/Ipratropium (Duoneb 3 Mg/0.5 Mg (3 Ml) Ud) 3 ml INH RQ4 PRN PRN Reason: Cough and congestion Aspirin (Ecotrin) 81 mg PO DAILY [facility] Last Admin: 03/08/18 10:34 Dose: 81 mg Cyproheptadine HCl (Periactin) 4 mg PO TID [facility] Last Admin: 03/08/18 13:14 Dose: 4 mg Enoxaparin Sodium (Lovenox) 40 mg SC DAILY [facility] Last Admin: 03/08/18 10:33 Dose: 40 mg Ergocalciferol (Drisdol 50,000 Intl Units Cap) 1 cap PO QWK [facility] Furosemide (Lasix) 40 mg IVP DAILY [facility] Last Admin: 03/08/18 13:14 Dose: 40 mg Gabapentin (Neurontin) 300 mg PO DAILY [facility] Last Admin: 03/08/18 10:33 Dose: 300 mg Ceftriaxone Sodium 1 gm/ (Sodium Chloride) 100 mls @ 100 mls/hr IVPB Q24H [facility] PRN Reason: Protocol Last Admin: 03/08/18 01:37 Dose: 100 mls/hr Insulin Glargine (Lantus) 20 unit SC [facility] Last Admin: 03/07/18 21:21 Dose: Not Given Insulin Human Regular (Novolin R) 0 unit SC ACHS [facility] PRN Reason: Protocol Last Admin: 03/08/18 12:51 Dose: 4 u Metoprolol Tartrate (Lopressor) 25 mg PO BID [facility] Last Admin: 03/08/18 10:33 Dose: Not Given Nystatin (Nystatin Oral Susp) 5 ml PO QID [facility] Last Admin: 03/08/18 13:14 Dose: 5 ml Repaglinide (Prandin) 2 mg PO DAILY [facility] Last Admin: 03/08/18 10:34 Dose: 2 mg Rosuvastatin Calcium (Crestor) 20 mg PO HS [facility] Last Admin: 03/07/18 21:31 Dose: 20 mg Sacubitril/Valsartan (Entresto 24 Mg-26 Mg) 1 tab PO DAILY [facility] Last Admin: 03/08/18 10:34 Dose: 1 tab Ticagrelor (Brilinta) 90 mg PO DAILY [facility] Last Admin: 03/08/18 10:34 Dose: 90 mg - Labs Labs: 03/07/18 06:16 03/07/18 06:16 PT 13.4 SECONDS (9.7-12.2) H 03/04/18 13:23 INR 1.2 03/04/18 13:23 APTT 30 SECONDS (21-34) 03/04/18 13:23
[2018-03-08] MEDS: (Lantus) Insulin Glargine, Recombinant SC SCH (21:53)
--- NOTE | 2018-03-09 06:30 | CON ---
Copied To: Philly Padilla MD Attending MD: Philly Padilla MD DATE: 03/04/2018 INFECTIOUS DISEASE CONSULTATION REQUESTED BY: Uriah Hernández MD REASON FOR CONSULTATION: Extreme fatigue, congestive heart failure, rule out pneumonia, rule out sepsis. HISTORY OF PRESENT ILLNESS: The patient is an 87-year-old Ugandan speaking female, well known to me, with multiple medical problems including ischemic cardiomyopathy, coronary artery disease with stents in two arteries, also with ejection fraction of 30%, type 2 diabetes mellitus, COPD, and AICD who was admitted via the emergency room with severe fatigue and congestive heart failure. The patient has also been complaining of cough for the past few days and shortness of breath and extreme fatigue, also with loss of appetite. The patient was evaluated in the emergency room and was found to be in congestive heart failure with severe anemia with a hemoglobin of 8 g per dL. The patient was therefore advised admission. Infectious disease consultation is requested by Dr. Hernández with reason for consultation to rule out sepsis verus pneumonia. The patient also has history of recurrent UTIs in the past and is well known to me. PAST MEDICAL HISTORY: As above, history of ischemic cardiomyopathy, recurrent CHF, history of pneumonia, history of coronary artery disease and AICD with two stents, diabetes mellitus type 2, COPD, and nutritional anemia. SOCIAL HISTORY: She is a nonsmoker and nonalcoholic. She lives with her and family. REVIEW OF SYSTEMS: RESPIRATORY: Complains of shortness of breath and difficulty ambulating with dyspnea on exertion. Also complains of cough which is dry, unable to bring out any expectoration. CONSTITUTIONAL: Extremely fatigued and weak. CARDIOVASCULAR SYSTEM: Complains of some chest pain and discomfort, but it comes and goes. Chest pain is not radiating to the arms or to the neck or down the throat. GASTROINTESTINAL: Unremarkable except for poor appetite. The patient states she has not eaten for the past few days as per her . GENITOURINARY: Denies any dysuria, hematuria, or hesitancy at present. CENTRAL NERVOUS SYSTEM: Denies headache. No seizures. No history of any sinus problems. MEDICATIONS: As per chart reviewed, the patient was on Keflex p.o. 500 mg b.i.d., Lopressor 25 mg p.o. b.i.d., Prandin 2 mg p.o. daily, also getting Lantus 20 units at bedtime, insulin regular Humulin, NovoLog R as needed according to the protocol, Lasix 40 mg once daily, Periactin 4 mg p.o. t.i.d., aspirin 81 mg p.o. once a day. The patient also is on Crestor 20 mg p.o. at bedtime, Entresto 24 mg/26 mg one tablet daily, Brilinta 90 mg p.o. daily. VACCINATIONS: The patient is not sure about her vaccinations. States she did get influenza vaccine last year. Pneumovax not sure. PHYSICAL EXAMINATION: GENERAL: The patient is awake, alert, very weak, and pale looking. VITAL SIGNS: Afebrile. Blood pressure 113/52, respirations 20, pulse of 94, pulse ox is 99%. NECK: Supple. No lymphadenopathy appreciated. No carotid bruit. LUNGS: Fair basilar rales. CARDIOVASCULAR SYSTEM: S1, S2 regular. No murmur or gallop. ABDOMEN: Soft. Bowel sounds are present. Nontender. No suprapubic tenderness elicited. EXTREMITIES: No cyanosis or clubbing. 1+ edema, bilateral lower extremities. CENTRAL NERVOUS SYSTEM: No gross deficits, but difficulty ambulating because of extreme fatigue and tiredness. LABORATORY DATA: Chest x-ray reviewed shows pulmonary venous congestion, official report is pending. Liver function tests are unremarkable. WBC 4.9, hemoglobin of 8.8, hematocrit 28.3, platelets of 152. PT is 13.4, INR of 1.2, PTT is 30. Potassium 3.8, creatinine 1.3, BUN of 30. Liver function tests: Bilirubin is normal, alkaline phosphatase 47, AST is normal at 29, ALT is 23. ProBNP was 6840. Troponins are negative, first set. Urinalysis shows 1+ blood, leukocytes trace, wbc's 2. IMPRESSION: 1. Sepsis with extreme fatigue. Rule out pneumonia. Rule out septicemia. 2. Exacerbation of congestive heart failure. 3. Ischemic cardiomyopathy. 4. Automatic implantable cardioverter-defibrillator. 5. Symptomatic anemia. 6. Type 2 diabetes mellitus. 7. Hypertension. PLAN: Suggest bay cultures. We will discontinue p.o. Keflex. We will initiate Rocephin 1 g every 12 hourly for now for broad gram-negative and gram-positive coverage. Follow up repeat blood works and liver function tests in the a.m. We will follow up chest x-rays with final report, and we will recommend any further therapy as needed. Sputum Gram stain and cultures to be induced. Throat culture also to be obtained and MRSA screen. We will follow along with you. Thank you very much for allowing me to participate in the care of your patient. Philly Padilla MD
[2018-03-09] MEDS: (Novolin R) Insulin Human Regular 100 units/ml vial SC SCH ×4 (07:52→22:10)
[2018-03-09] MEDS: Nystatin 100,000 Units/ml Oral Susp 5 ml UD PO SCH ×4 (09:07→22:00)
[2018-03-09] MEDS: Enoxaparin 40 mg Syringe SC SCH (09:08)
[2018-03-09] MEDS: Sacubitril/Valsartan 24-26mg Tab PO SCH (09:10)
--- NOTE | 2018-03-09 14:02 | CP.PCM.PN ---
Subjective - Date & Time of Evaluation Date of Evaluation: 03/09/18 Time of Evaluation: 14:02 - Subjective Subjective: CHIEF COMPLAINTS TODAY : Shortness of breath wheezing mild cough ROS. HEENT : N. Resp : No,pleuritic CP ,or hemoptysis Cardio : No anginal CP, PND, orthopnea, palpitation GI : No abd.pain, n/v ,diarrhea or GI bleeding . 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 Musculoskel : No joint swelling , Derm : No rash Psych : Normal affect. Ext : No swelling ,calf pain PE. Pt. is alert awake in no distress. V.S As noted in the chart Head ,ear nose,throat and eyes : Normal. Neck : Supple with normal carotids. Lungs bilateral rhonchi and rales Heart : S1 & S2 normal with S4. No murmur. Abd : Soft non tender with normal bowel sounds. Neuro : Moves all ext. with no localized deficit. Ext : No edema with intact pulses.Non tender calves Derm : No rashes or decubitus ulcer. LABS/RADIOLOGY: ASSESSMENT/PLAN : discussed with patient's and patient. Due to patient's mental condition with recurrent shortness of breath and generalized weakness patient will benefit for short-term rehab. They are agreed for [facility] rehab. Objective - Vital Signs/Intake and Output Vital Signs (last 24 hours): Temp Pulse Resp BP Pulse Ox 98.4 F 107 H 18 109/58 L 95 03/09/18 07:00 03/09/18 07:40 03/09/18 07:00 03/09/18 09:12 03/09/18 07:00 Intake and Output: 03/09/18 03/09/18 11:59 23:59 Intake Total 220 Balance 220 - Medications Medications: Current Medications Albuterol/Ipratropium (Duoneb 3 Mg/0.5 Mg (3 Ml) Ud) 3 ml INH RQ4 PRN PRN Reason: Cough and congestion Last Admin: 03/09/18 07:57 Dose: 3 ml Aspirin (Ecotrin) 81 mg PO DAILY [facility] Last Admin: 03/09/18 09:07 Dose: 81 mg Cyproheptadine HCl (Periactin) 4 mg PO TID [facility] Last Admin: 03/09/18 12:59 Dose: 4 mg Enoxaparin Sodium (Lovenox) 40 mg SC DAILY [facility] Last Admin: 03/09/18 09:08 Dose: 40 mg Ergocalciferol (Drisdol 50,000 Intl Units Cap) 1 cap PO QWK [facility] Furosemide (Lasix) 40 mg IVP DAILY [facility] Last Admin: 03/09/18 09:12 Dose: Not Given Gabapentin (Neurontin) 300 mg PO DAILY [facility] Last Admin: 03/09/18 09:06 Dose: 300 mg Ceftriaxone Sodium 1 gm/ (Sodium Chloride) 100 mls @ 100 mls/hr IVPB Q24H [facility] PRN Reason: Protocol Last Admin: 03/09/18 02:24 Dose: 100 mls/hr Insulin Glargine (Lantus) 20 unit SC HS [facility] Last Admin: 03/08/18 21:53 Dose: Not Given Insulin Human Regular (Novolin R) 0 unit SC ACHS [facility] PRN Reason: Protocol Last Admin: 03/09/18 12:15 Dose: Not Given Metoprolol Tartrate (Lopressor) 25 mg PO BID [facility] Last Admin: 03/09/18 09:11 Dose: Not Given Nystatin (Nystatin Oral Susp) 5 ml PO QID [facility] Last Admin: 03/09/18 12:59 Dose: 5 ml Repaglinide (Prandin) 2 mg PO DAILY [facility] Last Admin: 03/09/18 09:10 Dose: 2 mg Rosuvastatin Calcium (Crestor) 20 mg PO HS [facility] Last Admin: 03/08/18 22:00 Dose: 20 mg Sacubitril/Valsartan (Entresto 24 Mg-26 Mg) 1 tab PO DAILY [facility] Last Admin: 03/09/18 09:10 Dose: 1 tab Ticagrelor (Brilinta) 90 mg PO DAILY [facility] Last Admin: 03/09/18 09:10 Dose: 90 mg - Labs Labs: 03/07/18 06:16 03/07/18 06:16 PT 13.4 SECONDS (9.7-12.2) H 03/04/18 13:23 INR 1.2 03/04/18 13:23 APTT 30 SECONDS (21-34) 03/04/18 13:23
--- NOTE | 2018-03-09 15:21 | CP.PCM.PN ---
Subjective - Date & Time of Evaluation Date of Evaluation: 03/09/18 Time of Evaluation: 15:21 - Subjective Subjective: CHIEF COMPLAINTS TODAY : afebrile, FEELS WEAK/AND TIRED. DENIES SOB LESS COUGH ROS. HEENT : N. Resp : +VE cough, NO wheezing ,pleuritic CP ,or hemoptysis Cardio : No anginal CP, PND, orthopnea, palpitation GI : No abd.pain, n/v ,diarrhea or GI bleeding . 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 Musculoskel : No joint swelling , Derm : No rash Psych : Normal affect. Ext : No swelling ,calf pain PE. Pt. is alert awake in no distress. V.S As noted in the CHART Head ,ear nose,throat and eyes : Normal. Neck : Supple with normal carotids. Lungs: FEW BASILAR RALES Heart : S1 & S2 normal with S4. No murmur. Abd : Soft non tender with normal bowel sounds. Neuro : Moves all ext. with no localized deficit. Ext : 1+EDEMA, with intact pulses.Non tender calves Derm : No rashes or decubitus ulcer. LABS/RADIOLOGY: wbc 6.2, h&h STABLE 10.9. pLATELETS 135. CREAT 1.6/bun 22 LFTS N BLOOD CULTURE 03/04/18 -VE FOR 3 DAYS. uRINE CULTURE 03/04/18-NEGATIVE GROWTH. ASSESSMENT. EXACERBATION OF CHF. ISCHEMIC CARDIOMYOPATHY AICD. ANEMIA SYMPTOMATIC RENAL INSUFFICIENCY. /PLAN : CPM DIURESIS IS PER PMD. DC ABX ON DC TO [facility]. Objective - Vital Signs/Intake and Output Vital Signs (last 24 hours): Temp Pulse Resp BP Pulse Ox 98.4 F 107 H 18 109/58 L 95 03/09/18 07:00 03/09/18 07:40 03/09/18 07:00 03/09/18 09:12 03/09/18 07:00 Intake and Output: 03/09/18 03/09/18 06:59 18:59 Intake Total 460 Balance 460 - Medications Medications: Current Medications Albuterol/Ipratropium (Duoneb 3 Mg/0.5 Mg (3 Ml) Ud) 3 ml INH RQ4 PRN PRN Reason: Cough and congestion Last Admin: 03/09/18 07:57 Dose: 3 ml Aspirin (Ecotrin) 81 mg PO DAILY [facility] Last Admin: 03/09/18 09:07 Dose: 81 mg Cyproheptadine HCl (Periactin) 4 mg PO TID [facility] Last Admin: 03/09/18 12:59 Dose: 4 mg Enoxaparin Sodium (Lovenox) 40 mg SC DAILY [facility] Last Admin: 03/09/18 09:08 Dose: 40 mg Ergocalciferol (Drisdol 50,000 Intl Units Cap) 1 cap PO QWK [facility] Furosemide (Lasix) 40 mg IVP DAILY [facility] Last Admin: 03/09/18 09:12 Dose: Not Given Gabapentin (Neurontin) 300 mg PO DAILY [facility] Last Admin: 03/09/18 09:06 Dose: 300 mg Ceftriaxone Sodium 1 gm/ (Sodium Chloride) 100 mls @ 100 mls/hr IVPB Q24H [facility] PRN Reason: Protocol Last Admin: 03/09/18 02:24 Dose: 100 mls/hr Insulin Glargine (Lantus) 20 unit SC [facility] Last Admin: 03/08/18 21:53 Dose: Not Given Insulin Human Regular (Novolin R) 0 unit SC ACHS [facility] PRN Reason: Protocol Last Admin: 03/09/18 12:15 Dose: Not Given Metoprolol Tartrate (Lopressor) 25 mg PO BID [facility] Last Admin: 03/09/18 09:11 Dose: Not Given Nystatin (Nystatin Oral Susp) 5 ml PO QID [facility] Last Admin: 03/09/18 12:59 Dose: 5 ml Repaglinide (Prandin) 2 mg PO DAILY [facility] Last Admin: 03/09/18 09:10 Dose: 2 mg Rosuvastatin Calcium (Crestor) 20 mg PO [facility] Last Admin: 03/08/18 22:00 Dose: 20 mg Sacubitril/Valsartan (Entresto 24 Mg-26 Mg) 1 tab PO DAILY [facility] Last Admin: 03/09/18 09:10 Dose: 1 tab Ticagrelor (Brilinta) 90 mg PO DAILY [facility] Last Admin: 03/09/18 09:10 Dose: 90 mg - Labs Labs: 03/07/18 06:16 03/07/18 06:16 PT 13.4 SECONDS (9.7-12.2) H 03/04/18 13:23 INR 1.2 03/04/18 13:23 APTT 30 SECONDS (21-34) 03/04/18 13:23
[2018-03-09] MEDS: (Lantus) Insulin Glargine, Recombinant SC SCH (22:09)
[2018-03-10 03:25] LABS: CK-MB 0.98 ng/mL (0.0-3.38); TROPONIN I 0.036 ng/mL (0.00-0.120)
[2018-03-10] MEDS: (Novolin R) Insulin Human Regular 100 units/ml vial SC SCH ×2 (07:23→12:40)
[2018-03-10] MEDS: Nystatin 100,000 Units/ml Oral Susp 5 ml UD PO SCH (10:10)
[2018-03-10] MEDS: Enoxaparin 40 mg Syringe SC SCH (10:11)
[2018-03-10] MEDS: Sacubitril/Valsartan 24-26mg Tab PO SCH (10:11)
--- NOTE | 2018-03-10 13:18 | CP.PCM.PN ---
Subjective - Date & Time of Evaluation Date of Evaluation: 03/10/18 Time of Evaluation: 13:13 - Subjective Subjective: PT CLEARED FOR D/C TODAY TO [facility] PER DR. MART. HAS AUTH. I DISCUSSED PLAN FOR D/C WITH DR. Andreas ELLIS, WHO IS RECOMMENDING PT TO BE D/C WITH [facility] FOR 7 DAYS TOTAL OF ROCEPHIN 1 GM IV DAILY (STARTED ON 03/05/18)---PT NEEDS 2 MORE DAYS OF IV ABX (03/11 AND 03/12). PT TO BE PLACED UNDER THE SERVICE OF DR. MART WHILE AT [facility]. SW TO ARRANGE TRANSPORTATION TO [facility] THIS EVENING. NO FURTHER ORDERS. -PLACE UNDER THE SERVICE OF DR. MART WHILE AT [facility]---CALL DR. MART UPON ARRIVAL FOR ADMITTING ORDERS AND BED ASSIGNMENT. -CONTINUE ALL MEDICATIONS ACCORDING TO THE MED REC FORM---CHANGES CAN BE MADE BY DR. MART. -[facility] CARE PER FACILITY PROTOCOL. MAY DISCONTINUE [facility] ON WEDNESDAY, AFTER LAST ROCEPHIN DOSE. -PER DR. DALIA ELLIS, CONTINUE THE FOLLOWIN) ROCEPHIN 1 GM IV DAILY X2 MORE DAYS (GIVE ON 03/11 AND 03/12). -PHYSICAL THERAPY TOLERATED. -FALL RISK PER FACILITY PROTOCOL. -FOR FURTHER ORDERS, CONTACT DR. MART'S OFFICE. Objective - Vital Signs/Intake and Output Vital Signs (last 24 hours): Temp Pulse Resp BP Pulse Ox 97.6 F 110 H 18 122/95 H 99 03/10/18 07:25 03/10/18 07:25 03/10/18 07:25 03/10/18 10:11 03/10/18 07:25 Intake and Output: 03/10/18 03/10/18 06:59 18:59 Intake Total 700 Balance 700 - Medications Medications: Current Medications Aspirin (Ecotrin) 81 mg PO DAILY [facility] Last Admin: 03/10/18 10:10 Dose: 81 mg Cyproheptadine HCl (Periactin) 4 mg PO TID [facility] Last Admin: 03/10/18 10:11 Dose: 4 mg Enoxaparin Sodium (Lovenox) 40 mg SC DAILY [facility] Last Admin: 03/10/18 10:11 Dose: 40 mg Ergocalciferol (Drisdol 50,000 Intl Units Cap) 1 cap PO QWK [facility] Furosemide (Lasix) 40 mg IVP DAILY [facility] Last Admin: 03/10/18 10:11 Dose: 40 mg Gabapentin (Neurontin) 300 mg PO DAILY [facility] Last Admin: 03/10/18 10:10 Dose: 300 mg Ceftriaxone Sodium 1 gm/ (Sodium Chloride) 100 mls @ 100 mls/hr IVPB Q24H [facility] PRN Reason: Protocol Last Admin: 03/10/18 01:20 Dose: 100 mls/hr Insulin Glargine (Lantus) 20 unit SC HS [facility] Last Admin: 03/09/18 22:09 Dose: Not Given Insulin Human Regular (Novolin R) 0 unit SC ACHS [facility] PRN Reason: Protocol Last Admin: 03/10/18 12:40 Dose: 2 units Metoprolol Tartrate (Lopressor) 25 mg PO BID [facility] Last Admin: 03/10/18 10:10 Dose: 25 mg Repaglinide (Prandin) 2 mg PO DAILY [facility] Last Admin: 03/10/18 12:41 Dose: 2 mg Rosuvastatin Calcium (Crestor) 20 mg PO HS [facility] Last Admin: 03/09/18 22:00 Dose: 20 mg Sacubitril/Valsartan (Entresto 24 Mg-26 Mg) 1 tab PO DAILY [facility] Last Admin: 03/10/18 10:11 Dose: 1 tab Ticagrelor (Brilinta) 90 mg PO DAILY [facility] Last Admin: 03/10/18 10:11 Dose: 90 mg - Labs Labs: 03/07/18 06:16 03/07/18 06:16 PT 13.4 SECONDS (9.7-12.2) H 03/04/18 13:23 INR 1.2 03/04/18 13:23 APTT 30 SECONDS (21-34) 03/04/18 13:23
--- NOTE | 2018-03-10 14:14 | IP.NPCORE ---
Heart Failure Core Measure - Heart Failure Ejection Fraction: Less Than 40 % MAGNOLIA Inhibitor Prescribed: No Contraindication/Reason for not providing: ON ARB COMBINATION PILL Beta-Reid Prescribed: None Contraindication/Reason for not providing: LOPRESSOR BID Angiotensin II Receptor Reid Prescribed: Yes AnticoagulationTherapy for Atrial Fibrillation/Atrialflutter: No Contraindication/Reason for not providing: NO AFIB Aldosterone Antagonist Prescribed: No Contraindication/Reason for not providing: RENAL INSUFFICIENCY Hydralazine Nitrate Prescribed: No Contraindication/Reason for not providing: RENAL INSUFFICIENCY Implantable Cardioverter Defibrillator Therapy: No Contraindication/Reason for not providing: HAS PPM Cardiac Resynchronization Therapy Prescribed: No Contraindication/Reason for not providing: HAS PPM - Follow up Will be discharged to: Alf Facility ([facility]) Follow Up Date (must be within 7 days from discharge): 03/15/18 Follow Up Time: 09:00
--- NOTE | 2018-03-10 14:19 | CP.PCM.DIS ---
Provider - Provider Date of Admission: 03/04/18 15:12 Attending physician: Uriah Hernández MD Time Spent in preparation of Discharge (in minutes): 35 Hospital Course - Lab Results Lab Results: Micro Results 03/04/18 00:45 Blood-Venous Blood Culture - Final NO GROWTH AFTER 5 DAYS 03/04/18 00:45 Blood-Venous Gram Stain - Final TEST NOT PERFORMED 03/04/18 01:15 Blood-Venous Blood Culture - Final NO GROWTH AFTER 5 DAYS 03/04/18 01:15 Blood-Venous Gram Stain - Final TEST NOT PERFORMED 03/05/18 01:16 Throat Group A Strep Throat Culture - Final NO BETA STREP GROUP A ISOLATED. 03/04/18 13:57 Urine,Clean Catch Urine Culture - Final No Growth (<1,000 CFU/ML) Most Recent Lab Values WBC 6.2 K/uL (4.8-10.8) 03/07/18 06:16 RBC 4.35 Mil/uL (3.80-5.20) 03/07/18 06:16 Hgb 10.9 g/dL (11.0-16.0) L 03/07/18 06:16 Hct 33.6 % (34.0-47.0) L 03/07/18 06:16 MCV 77.4 fL (81.0-99.0) L 03/07/18 06:16 MCH 25.1 pg (27.0-31.0) L 03/07/18 06:16 MCHC 32.5 g/dL (33.0-37.0) L 03/07/18 06:16 RDW 18.5 % (11.5-14.5) H 03/07/18 06:16 Plt Count 135 K/uL (130-400) 03/07/18 06:16 MPV 11.1 fL (7.2-11.7) 03/07/18 06:16 Neut % (Auto) 67.5 % (50.0-75.0) 03/07/18 06:16 Lymph % (Auto) 14.0 % (20.0-40.0) L 03/07/18 06:16 [place] % (Auto) 11.1 % (0.0-10.0) H 03/07/18 06:16 Eos % (Auto) 6.2 % (0.0-4.0) H 03/07/18 06:16 Baso % (Auto) 1.2 % (0.0-2.0) 03/07/18 06:16 Neut # (Auto) 4.2 K/uL (1.8-7.0) 03/07/18 06:16 Lymph # (Auto) 0.9 K/uL (1.0-4.3) L 03/07/18 06:16 [place] # (Auto) 0.7 K/uL (0.0-0.8) 03/07/18 06:16 Eos # (Auto) 0.4 K/uL (0.0-0.7) 03/07/18 06:16 Baso # (Auto) 0.1 K/uL (0.0-0.2) 03/07/18 06:16 ESR 13 mm/hr (0-20) 03/05/18 06:36 PT 13.4 SECONDS (9.7-12.2) H 03/04/18 13:23 INR 1.2 03/04/18 13:23 APTT 30 SECONDS (21-34) 03/04/18 13:23 Sodium 142 mmol/L (132-148) 03/07/18 06:16 Potassium 4.0 mmol/L (3.6-5.2) 03/07/18 06:16 Chloride 103 mmol/L (98-107) 03/07/18 06:16 Carbon Dioxide 31 mmol/L (22-30) H 03/07/18 06:16 Anion Gap 12 (10-20) 03/07/18 06:16 BUN 22 mg/dL (7-17) H 03/07/18 06:16 Creatinine 1.6 mg/dL (0.7-1.2) H 03/07/18 06:16 Est GFR ( Amer) 37 03/07/18 06:16 Est GFR (Non-Af Amer) 31 03/07/18 06:16 POC Glucose (mg/dL) 154 mg/dL (65-110) H 03/10/18 12:05 Random Glucose 91 mg/dL (65-105) 03/07/18 06:16 Calcium 9.3 mg/dl (8.6-10.4) 03/07/18 06:16 Phosphorus 3.6 mg/dL (2.5-4.5) 03/06/18 08:21 Magnesium 1.8 mg/dL (1.6-2.3) 03/06/18 08:21 Total Bilirubin 0.3 mg/dL (0.2-1.3) 03/07/18 06:16 AST 17 U/L (14-36) 03/07/18 06:16 ALT 20 U/L (9-52) 03/07/18 06:16 Alkaline Phosphatase 60 U/L (38-126) 03/07/18 06:16 Total Creatine Kinase 55 U/L (30-135) 03/10/18 02:10 CK-MB (Mass) 0.98 ng/mL (0.0-3.38) 03/10/18 02:10 Troponin I 0.0360 ng/mL (0.00-0.120) 03/10/18 02:10 C-Reactive Protein 7.50 mg/L (0.0-9.9) 03/05/18 06:36 NT-Pro-B Natriuret Pep 6840 pg/mL (0-900) H 03/04/18 13:23 Total Protein 6.0 g/dL (6.3-8.3) L 03/07/18 06:16 Albumin 3.3 g/dL (3.5-5.0) L 03/07/18 06:16 Globulin 2.7 gm/dL (2.2-3.9) 03/07/18 06:16 Albumin/Globulin Ratio 1.2 (1.0-2.1) 03/07/18 06:16 Urine Color Yellow (YELLOW) 03/04/18 13:57 Urine Clarity Clear (Clear) 03/04/18 13:57 Urine pH 8.0 (5.0-8.0) 03/04/18 13:57 Ur Specific [place] 1.009 (1.003-1.030) 03/04/18 13:57 Urine Protein Negative mg/dL (NEGATIVE) 03/04/18 13:57 Urine Glucose (UA) Normal mg/dL (Normal) 03/04/18 13:57 Urine Ketones Negative mg/dL (NEGATIVE) 03/04/18 13:57 Urine Blood 1+ (NEGATIVE) H 03/04/18 13:57 Urine Nitrate Negative (NEGATIVE) 03/04/18 13:57 Urine Bilirubin Negative (NEGATIVE) 03/04/18 13:57 Urine Urobilinogen Normal mg/dL (0.2-1.0) 03/04/18 13:57 Ur Leukocyte Esterase Trace Rolf/uL (Negative) 03/04/18 13:57 Urine WBC (Auto) 2 /hpf (0-5) 03/04/18 13:57 Urine RBC (Auto) 1 /hpf (0-3) 03/04/18 13:57 Ur Squamous Epith Cells 5 /hpf (0-5) 03/04/18 13:57 Blood Type A POSITIVE 03/04/18 15:58 Antibody Screen Negative 03/04/18 15:58 Crossmatch See Detail 03/04/18 15:58 - Hospital Course Hospital Course: Patient is admitted from emergency room with severe fatigue and congestive heart failure HPI Patient has ischemic cardiomyopathy with recurrent congestive heart failure. The last few days patient has been complaining of shortness of breath severe fatigue was evaluated in outpatient with severe fatigue shortness of breath. Patient was evaluated in emergency room was found to be in congestive heart failure with severe anemia of hemoglobin 8.0 g/dL. PAST HIST. Patient has history of coronary artery disease with stents in 2 arteries. Ischemic heart cardiomyopathy with left ventricle ejection fraction less than 30 %. Type II diabetes COPD and AICD. Patient also has a nutritional anemia requiring frequently IN therapy and blood transfusion. Patient was admitted on the telemetry bed there was no any cardiac arrhythmias during the hospital stay. Cardiac enzymes were negative for any myocardial injury. Hemoglobin was 8.0. Patient received 1 packed cells and hemoglobin stabilized to 10.6 g/dL. Patient continued to have wheezing shortness of breath weakness. In view of the patient's underlying medical conditions and generalized weakness patient was transferred to rehab for further treatment and physical therapy. Discharge Plan - Discharge Medications Prescriptions: Furosemide [Lasix] 40 mg PO DAILY 999 Days tab - Follow Up Plan Condition: GUARDED Disposition: HOME/ ROUTINE Instructions: Heart Healthy Diet, Heart Failure, Adult (DC), Normocytic Normochromic Anemia (DC) Additional Instructions: -PLACE UNDER THE SERVICE OF DR. HERNÁNDEZ WHILE AT [facility]---CALL DR. HERNÁNDEZ UPON ARRIVAL FOR ADMITTING ORDERS AND BED ASSIGNMENT. -CONTINUE ALL MEDICATIONS ACCORDING TO THE MED REC FORM---CHANGES CAN BE MADE BY DR. HERNÁNDEZ. -PHYSICAL THERAPY TOLERATED. -FALL RISK PER FACILITY PROTOCOL. -FOR FURTHER ORDERS, CONTACT DR. HERNÁNDEZ'S OFFICE. Referrals: Philly Padilla MD [Staff Provider] - Uriah Hernández MD [Staff Provider] -
--- NOTE | 2018-03-10 15:09 | CP.PCM.PN ---
Subjective - Date & Time of Evaluation Date of Evaluation: 03/10/18 Time of Evaluation: 15:09 - Subjective Subjective: CHIEF COMPLAINTS TODAY : afebrile, FEELS WEAK/AND TIRED. DENIES SOB LESS COUGH ROS. HEENT : N. Resp : +VE cough, NO wheezing ,pleuritic CP ,or hemoptysis Cardio : No anginal CP, PND, orthopnea, palpitation GI : No abd.pain, n/v ,diarrhea or GI bleeding . 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 Musculoskel : No joint swelling , Derm : No rash Psych : Normal affect. Ext : No swelling ,calf pain PE. Pt. is alert awake in no distress. V.S As noted in the CHART Head ,ear nose,throat and eyes : Normal. Neck : Supple with normal carotids. Lungs: FEW BASILAR RALES Heart : S1 & S2 normal with S4. No murmur. Abd : Soft non tender with normal bowel sounds. Neuro : Moves all ext. with no localized deficit. Ext : 1+EDEMA, with intact pulses.Non tender calves Derm : No rashes or decubitus ulcer. LABS/RADIOLOGY: wbc 6.2, h&h STABLE 10.9. pLATELETS 135. CREAT 1.6/bun 22 LFTS N BLOOD CULTURE 03/04/18 -VE FOR 3 DAYS. uRINE CULTURE 03/04/18-NEGATIVE GROWTH. ASSESSMENT. EXACERBATION OF CHF. BRONCHITIS ISCHEMIC CARDIOMYOPATHY AICD. ANEMIA SYMPTOMATIC RENAL INSUFFICIENCY. 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 CAN DC IV ROCEPHIN ON DC TO [facility]. DIURESIS IS PER PMD. PT FOR [facility]. TODAY PER PMD Objective - Vital Signs/Intake and Output Vital Signs (last 24 hours): Temp Pulse Resp BP Pulse Ox 97.6 F 110 H 18 122/95 H 99 03/10/18 07:25 03/10/18 07:25 03/10/18 07:25 03/10/18 10:11 03/10/18 07:25 Intake and Output: 03/10/18 03/10/18 06:59 18:59 Intake Total 700 500 Balance 700 500 - Medications Medications: Current Medications Aspirin (Ecotrin) 81 mg PO DAILY [facility] Last Admin: 03/10/18 10:10 Dose: 81 mg Cyproheptadine HCl (Periactin) 4 mg PO TID [facility] Last Admin: 03/10/18 13:57 Dose: 4 mg Enoxaparin Sodium (Lovenox) 40 mg SC DAILY [facility] Last Admin: 03/10/18 10:11 Dose: 40 mg Ergocalciferol (Drisdol 50,000 Intl Units Cap) 1 cap PO QWK [facility] Furosemide (Lasix) 40 mg IVP DAILY [facility] Last Admin: 03/10/18 10:11 Dose: 40 mg Gabapentin (Neurontin) 300 mg PO DAILY [facility] Last Admin: 03/10/18 10:10 Dose: 300 mg Ceftriaxone Sodium 1 gm/ (Sodium Chloride) 100 mls @ 100 mls/hr IVPB Q24H [facility] PRN Reason: Protocol Last Admin: 03/10/18 01:20 Dose: 100 mls/hr Insulin Glargine (Lantus) 20 unit SC HS [facility] Last Admin: 03/09/18 22:09 Dose: Not Given Insulin Human Regular (Novolin R) 0 unit SC ACHS [facility] PRN Reason: Protocol Last Admin: 03/10/18 12:40 Dose: 2 units Metoprolol Tartrate (Lopressor) 25 mg PO BID [facility] Last Admin: 03/10/18 10:10 Dose: 25 mg Repaglinide (Prandin) 2 mg PO DAILY [facility] Last Admin: 03/10/18 12:41 Dose: 2 mg Rosuvastatin Calcium (Crestor) 20 mg PO HS [facility] Last Admin: 03/09/18 22:00 Dose: 20 mg Sacubitril/Valsartan (Entresto 24 Mg-26 Mg) 1 tab PO DAILY [facility] Last Admin: 03/10/18 10:11 Dose: 1 tab Ticagrelor (Brilinta) 90 mg PO DAILY [facility] Last Admin: 03/10/18 10:11 Dose: 90 mg - Labs Labs: 03/07/18 06:16 03/07/18 06:16 PT 13.4 SECONDS (9.7-12.2) H 03/04/18 13:23 INR 1.2 03/04/18 13:23 APTT 30 SECONDS (21-34) 03/04/18 13:23
[2018-03-10 16:23] VITALS: RESP 20
[2018-03-10 16:27] VITALS: BP 98/47; PULSE 102; TEMP 97.8; O2SAT 97
--- NOTE | 2018-03-10 19:24 | CARD ---
APPROVED REPORT Date of service: 03/10/2018 EKG Measurement Heart [id number] <Conclusion> Sinus tachycardia with premature atrial complexes Left ventricular hypertrophy with QRS widening and repolarization abnormality Abnormal ECG
[2018-03-11] MEDS ORDERED: Ergocalciferol 50,000 Intl Units Cap PO SCH (10:00)
== END 2018-03-10 16:31 | DRG 871 ==
LOC: C.ER 11:55 → C.9E 15:12 → C.6T 16:20
PROVIDERS: ADMIT Internal Medicine Cardiovascular Disease; ATTEND Internal Medicine Cardiovascular Disease
DX: A41.9 Sepsis, unspecified organism (principal); I50.23 Acute on chronic systolic (congestive) heart failure; I11.0 Hypertensive heart disease with heart failure; D50.9 Iron deficiency anemia, unspecified; D53.9 Nutritional anemia, unspecified; E11.9 Type 2 diabetes mellitus without complications; E78.00 Pure hypercholesterolemia, unspecified; I25.10 Atherosclerotic heart disease of native coronary artery without angina pectoris; I25.5 Ischemic cardiomyopathy; J44.9 Chronic obstructive pulmonary disease, unspecified; Z79.84 Long term (current) use of oral hypoglycemic drugs; Z86.73 Personal history of transient ischemic attack (TIA), and cerebral infarction without residual deficits; Z87.01 Personal history of pneumonia (recurrent); Z87.440 Personal history of urinary (tract) infections; Z90.49 Acquired absence of other specified parts of digestive tract; Z95.5 Presence of coronary angioplasty implant and graft; Z95.810 Presence of automatic (implantable) cardiac defibrillator

== ENCOUNTER 2018-04-07 14:12 | Inpatient (IN) | payer MEDICARE ==
[2018-04-07 14:12] VITALS: BMI 25.5
[2018-04-07] MEDS ORDERED: Albuterol-Ipratrop 3 mg / 0.5 (3 ml) UD INH STA ×2 (14:36→16:16)
--- NOTE | 2018-04-07 14:37 | C.PDOC ---
History Of Present Illness 87 y/o F with PMHx of COPD, CAD with LAD stent and CHF with EF:20%, presents to the ED complaining of chest pain for 1 week, associated with SOB and productive cough. Cough is bringing up white sputum. Patient was also complaining of LLQ pain yesterday, was seen by Dr. Caty Baeza, and started on doxycycline and flagyl. Denies any fever, chills, GI bleed, nausea, vomiting, or diarrhea. Time Seen by Provider: 04/07/18 14:17 Chief Complaint (Nursing): Shortness Of Breath History Per: Patient History/Exam Limitations: no limitations Onset/Duration Of Symptoms: Days Current Symptoms Are (Timing): Still Present Past Medical History Reviewed: Historical Data, Nursing Documentation, Vital Signs Vital Signs: Last Vital Signs Temp 98.5 F 04/07/18 16:34 Pulse 99 H 04/07/18 16:34 Resp 22 04/07/18 16:34 BP 126/59 L 04/07/18 16:41 Pulse Ox 98 04/07/18 18:19 - Medical History PMH: Anemia, Anxiety, Arthritis, Asthma, Cardia Arrhythmia, CHF, COPD, Diabetes , HTN, Hypercholesterolemia, TIA Denies: Chronic Kidney Disease Surgical History: Appendectomy, Coronary Stent, Endoscopy, Pacemaker (2015) - [facility] Procedures ASSISTANCE WITH RESPIRATORY VENTILATION, 24-96 HRS, CPAP (06/15/17) ASSISTANCE WITH RESPIRATORY VENTILATION, <24 HRS, CPAP (02/06/16) ESOPHAGOGASTRODUODENOSCOPY [EGD] W/CLOSED BIOPSY (12/30/14) LEFT HEART CARDIAC CATH (10/19/13) LT HEART ANGIOCARDIOGRAM (10/19/13) MEASURE OF CARDIAC SAMPL & PRESSURE, L HEART, PERC APPROACH (05/21/15) PACKED CELL TRANSFUSION (12/30/14) PLAIN RADIOGRAPHY OF MULT COR ART USING OTH CONTRAST (05/21/15) TRANSFUSE NONAUT RED BLOOD CELLS IN PERIPH VEIN, PERC (02/06/16) Family History: States: No Known Family Hx - Social History Hx Tobacco Use: No Hx Alcohol Use: No Hx Substance Use: No - Immunization History Hx Tetanus Toxoid Vaccination: No Hx Influenza Vaccination: Yes Hx Pneumococcal Vaccination: Yes Review Of Systems Except As Marked, All Systems Reviewed And Found Negative. Constitutional: Negative for: Fever, Sweats Cardiovascular: Positive for: Chest Pain Respiratory: Positive for: Cough, Shortness of Breath, Sputum Gastrointestinal: Positive for: Abdominal Pain. Negative for: Nausea, Vomiting , Diarrhea Physical Exam - Physical Exam Appears: Non-toxic, No Acute Distress Skin: Normal Color, Warm, Dry Head: Atraumatic, Normacephalic Eye(s): bilateral: Normal Inspection, PERRL, EOMI Oral Mucosa: Moist Neck: Normal ROM Chest: Symmetrical, No Deformity, No Tenderness Cardiovascular: Rhythm Regular, No Murmur Respiratory: No Rales, No Rhonchi, Wheezing (bilaterally), Other (No respiratory distress) Gastrointestinal/Abdominal: Bowel Sounds (active), Soft, Tenderness (to the left lower quadrant), No Guarding, No Rebound Extremity: Bilateral: Atraumatic, Normal Color And Temperature, Normal ROM Neurological/Psych: Oriented x3, Normal Speech ED Course And Treatment - Laboratory Results Result Diagrams: 04/07/18 15:24 04/07/18 15:24 O2 Sat by Pulse Oximetry: 98 (on RA) Pulse Ox Interpretation: Normal Medical Decision Making Medical Decision Making: Plan: * EKG * CMP * Troponin I * Pro-BNP * CK * Lipase * CBC * PTT/PT * Urinalysis * Chest x-ray * Aspirin 324 mg PO * Duoneb 3 ml INH * Peak Flow pre/post neb * CT Abd/Pelvis with IV contrast EKG shows sinus tachycardia at 104bpm with pacs and LBBB. Unchanged from prior on 12/25/17 Cxray: Cardiomegaly appears stable however inspiratory volume is diminished. No pulmonary vascular congestion. Chronic interstitial pulmonary changes reiterated. AICD/pacemaker reiterated. 4:31 CT unable to be performed with contrast due to GFR. Afebrile with normal wbc and already on antibiotics. Dr. Hernández requesting CT with po only. BNP elevated. Trop mildly elevated. Already given aspirin. Lasix ordered. For COPD - additional nebs ordered and steroids. CT FINDINGS: LOWER THORAX: Large, stable hiatal hernia. Stable cardiomegaly. Small bilateral pleural effusions and associated compressive atelectasis. GALLBLADDER AND BILE DUCTS: Distended gallbladder without evidence of gallstones or other pathologic process. BOWEL: Thickening of wall of the descending colon which is diffuse. Diverticulosis without an acute inflammatory component or other associated pathologic process. PERITONEUM: Thickening of the wall of the descending colon the overall pattern/appearance suggests colitis. Diverticulosis without an acute inflammatory component or other associated pathologic process. Disposition - Disposition Disposition: HOSPITALIZED Disposition Time: 16:12 Condition: FAIR - Clinical Impression Clinical Impression: Chronic congestive heart failure, Chr obstructive pulmonary disease w/ acute lower respiratory infxn, CHF exacerbation, Anemia, Colitis, Hematuria, Pleural effusion - Scribe Statement The provider has reviewed the documentation as recorded by the Scribe (Shanika Steven) Provider Attestation: All medical record entries made by the Hammadibe were at my direction and personally dictated by me. I have reviewed the chart and agree that the record accurately reflects my personal performance of the history, physical exam, medical decision making, and the department course for this patient. I have also personally directed, reviewed, and agree with the discharge instructions and disposition.
--- NOTE | 2018-04-07 15:25 | RAD ---
Date of service: 04/07/2018 HISTORY: cough, sob COMPARISON: Chest radiographs 03/05/2018. FINDINGS: LUNGS: Inspiratory volume appears diminished however no definite acute alveolitis pattern is appreciated. Chronic interstitial pulmonary changes persist but appears stable PLEURA: No significant pleural effusion identified, no pneumothorax apparent. CARDIOVASCULAR: Stable cardiomegaly. No definite pulmonary vascular congestion. AICD/pacemaker reiterated. OSSEOUS STRUCTURES: No significant abnormalities. VISUALIZED UPPER ABDOMEN: Normal. OTHER FINDINGS: None. IMPRESSION: Cardiomegaly appears stable however inspiratory volume is diminished. No pulmonary vascular congestion. Chronic interstitial pulmonary changes reiterated. AICD/pacemaker reiterated.
[2018-04-07] MEDS ORDERED: Albuterol-Ipratrop 3 mg / 0.5 (3 ml) UD ONE ×2 (15:26→16:38)
[2018-04-07 15:28] LABS: BASO # 0.1 K/uL (0.0-0.2); EOS # 0.1 K/uL (0.0-0.7); EOS % 1.3 % (0.0-4.0); RED CELL DISTRIBUTION WIDTH 20.6 % (11.5-14.5); WHITE BLOOD COUNT 7.2 K/uL (4.8-10.8)
[2018-04-07 15:33] LABS: BASO % 1.6 % (0.0-2.0); LYMPH # 1.2 K/uL (1.0-4.3); LYMPH % 16.8 % (20.0-40.0); MEAN CELL VOLUME 76.3 fL (81.0-99.0); MEAN CORPUSCULAR HEMOGLOBIN 24.9 pg (27.0-31.0); MEAN CORPUSCULAR HGB CONC 32.7 g/dL (33.0-37.0); MEAN PLATELET VOLUME 10.5 fL (7.2-11.7); MONO # 0.5 K/uL (0.0-0.8); MONO % 7.2 % (0.0-10.0); NEUT # 5.2 K/uL (1.8-7.0); NEUT % 73.1 % (50.0-75.0); RBC 3.6 Mil/uL (3.80-5.20)
[2018-04-07 15:37] LABS: INR 1.2
[2018-04-07 15:55] LABS: ALB/GLOB RATIO 1.2 (1.0-2.1); ALBUMIN 3.5 g/dL (3.5-5.0); CALCIUM 9.2 mg/dl (8.6-10.4)
[2018-04-07 16:09] LABS: TROPONIN I 0.028 ng/mL (0.00-0.120)
[2018-04-07] MEDS ORDERED: Iohexol 240 (50 ml) ONE (16:42)
[2018-04-07 17:59] LABS: SQUAMOUS EPITHIAL 1 /hpf (0-5); URINE BACTERIA RARE (<OCC); URINE BILIRUBIN NEGATIVE (NEGATIVE); URINE BLOOD 2+ (NEGATIVE); URINE CLARITY Clear (Clear); URINE COLOR Yellow (YELLOW); URINE GLUCOSE (UA) NORMAL (Normal); URINE LEUKOCYTE ESTERASE NEG Leu/uL (Negative); URINE PROTEIN NEGATIVE (NEGATIVE); URINE UROBILINOGEN NORMAL mg/dL (0.2-1.0)
--- NOTE | 2018-04-07 18:00 | CT ---
Date of service: 04/07/2018 PROCEDURE: CT Abdomen and Pelvis with contrast HISTORY: LLQ pain COMPARISON: 04/05/2015. CT abdomen and pelvis TECHNIQUE: Oral contrast only. Radiation dose: Total exam DLP = 226.12 mGy-cm. This CT exam was performed using one or more of the following dose reduction techniques: Automated exposure control, adjustment of the mA and/or kV according to patient size, and/or use of iterative reconstruction technique. FINDINGS: LOWER THORAX: Large, stable hiatal hernia. Stable cardiomegaly. Small bilateral pleural effusions and associated compressive atelectasis. LIVER: Unremarkable. No gross lesion or ductal dilatation. GALLBLADDER AND BILE DUCTS: Distended gallbladder without evidence of gallstones or other pathologic process. PANCREAS: Unremarkable. No gross lesion or ductal dilatation. SPLEEN: Unremarkable. ADRENALS: Unremarkable. No mass. KIDNEYS AND URETERS: Unremarkable. No hydronephrosis. No solid mass. VASCULATURE: Unremarkable. No aortic aneurysm. BOWEL: Thickening of wall of the descending colon which is diffuse. Diverticulosis without an acute inflammatory component or other associated pathologic process. APPENDIX: Normal appendix. PERITONEUM: Thickening of the wall of the descending colon the overall pattern/appearance suggests colitis. Diverticulosis without an acute inflammatory component or other associated pathologic process. LYMPH NODES: Unremarkable. No enlarged lymph nodes. BLADDER: Unremarkable. REPRODUCTIVE: Unremarkable. BONES: No acute fracture. OTHER FINDINGS: None. IMPRESSION: Unremarkable contrast enhanced CT of the abdomen and pelvis.
--- NOTE | 2018-04-07 19:27 | CP.PCM.HP ---
History of Present Illness - History of Present Illness History of Present Illness: COMPREHENSIVE HISTORY & PHYSICAL EXAM Patient is admitted from [facility] emergency room with shortness of breath cough expectoration HPI For the last few days patient has been complaining of cough expectoration white to yellowish with increasing wheezing symptoms increase in intensity and severity patient became short of breath at rest. Patient presented to [facility] Emergency Room found to have acute COPD with exacerbation and possible respiratory infection the proBNP was elevated at 29,000 chest x-ray did not show any acute infiltrate. Few days ago patient had lower abdominal pain was seen by local MD and was prescribed Flagyl for possible diverticulitis. CT of the abdomen with oral contrast did not revealed any diverticulitis. PAST HIST. Patient has history of ischemic cardiomyopathy with left antegrade ejection fraction of less than 30%. 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 PERSONAL HIST: Smoking. N Alcohol. N Allergy N Travel_- . FAMILY HIST : ROS : Constitutional: Negative for weight change, chills, night sweats, Eyes: Negative for redness, swelling, itching, discharge, vision changes, blurry vision, double vision, glaucoma, cataracts, Ears: Negative for hearing loss, ringing, , tinnitus, vertigo Nose: Negative for rhinorrhea, stuffiness, sniffing, itching, postnasal drip, discoloration, nasal congestion and epistaxis. Throat: Negative for throat clearing, sore throat, hoarseness, difficulty swallowing and difficulty speaking. Respiratory: Negative hemoptysis, Cardiovascular: Negative, Edema of legs, leg cramps, angina, claudication, , irregular heartbeat, Neurology: Negative for irritability, muscle weakness, numbness and tingling, seizures, tremors, migraines, slurred speech, syncope, memory loss, mood changes , recurrent headaches Gastrointestinal: Negative for difficulty swallowing, diarrhea, constipation, black stools, rectal bleeding, nausea, flatulence, reflux, poor appetite, changes in bowel habits, abdominal pain Genitourinary: Negative for frequent urination, hematuria, discharge, incontinence, urinary retention, frequent UTI, Psychiatric: Negative for depression, anxiety/panic, suicidal tendencies, Musculoskeletal: Negative for swollen joints, back pain, , neck pain, morning stiffness of joints, . Skin: Negative for rash, ulcers, itching, dry skin and pigmented lesions. P/E: Constitutional: Appears stated age and in no apparent distress. Head: Normocephalic. Ears: External ear canals patent without inflammation. Tympanic membranes intact with normal light reflex and landmark. Eyes: Pupils are central, bilaterally equal, symmetrical and reacts to light with normal movements and no icterus or pallor. Nose: External nares are patent. Mucosa is pink Mouth-Throat: Good general appearance and condition. No post-pharyngeal/oropharyngeal erythema and tonsillar hypertrophy. Good dental hygiene. Neck-Lymphatic: Neck is supple with normal ROM, no thyromegaly, lymph nodes or masses. JVD is normal with no carotid bruit. Lungs poor air entry with basal crackles Cardiovascular: S1 and S2 are normal with no murmurs, gallops and rub. GI Exam: No hepatomegaly. Abdomen is soft and non-tender. No Organomegaly , masses or hernias are evident and bowel sounds are normal and active. Neurology: Higher function and all cranial nerves intact, with no gross motor or sensory deficit. Superficial and deep reflexes are normal with downwards planters. No cerebellar deficit with normal gait. Musculoskeletal: No tender spots with normal curvature of the spine with no swelling or restricted ROM of the small and large joints. Extremities: Homans sign absent. Intact pulses with no pitting edema, calf tenderness or skin color changes. Skin: No rash, eruptions or abnormal skin pigmentation LAB/RADIOLOGY: ASSESMENT : Patient of COPD with respiratory infection Acute on chronic systolic heart failure with reduced ejection fraction Ischemic cardiomyopathy with coronary artery disease with stent Type II diabetes and anemia. Plan Monitor on telemetry IV Lasix steroids IV antibiotics and ID evaluation. Present on Admission - Present on Admission Any Indicators Present on Admission: No Past Patient History - Infectious Disease Hx of Infectious Diseases: None - Tetanus Immunizations Tetanus Immunization: Unknown - Past Medical History & Family History Past Medical History?: Yes - Past Social History Smoking Status: Never Smoked - CARDIAC Hx Cardia Arrhythmia: Yes Hx Congestive Heart Failure: Yes Hx Hypercholesterolemia: Yes Hx Hypertension: Yes Hx Pacemaker: Yes (2015) - PULMONARY Hx Asthma: Yes Hx Chronic Obstructive Pulmonary Disease (COPD): Yes - NEUROLOGICAL Hx Transient Ischemic Attacks (TIA): Yes - HEENT Hx HEENT Problems: No - RENAL Hx Chronic Kidney Disease: No - ENDOCRINE/METABOLIC Hx Diabetes Mellitus Type 2: Yes - HEMATOLOGICAL/ONCOLOGICAL Hx Anemia: Yes - INTEGUMENTARY Hx Dermatological Problems: No - MUSCULOSKELETAL/RHEUMATOLOGICAL Hx Arthritis: Yes - GASTROINTESTINAL Hx Gastrointestinal Disorders: No - GENITOURINARY/GYNECOLOGICAL Hx Genitourinary Disorders: No - PSYCHIATRIC Hx Anxiety: Yes Hx Substance Use: No - SURGICAL HISTORY Hx Appendectomy: Yes Hx Coronary Stent: Yes - ANESTHESIA Hx Anesthesia: Yes Hx Anesthesia Reactions: No Hx Malignant Hyperthermia: No Meds Allergies/Adverse Reactions: Allergies Allergy/AdvReac Type Severity Reaction Status Date / Time clopidogrel Allergy Mild SWELLING Verified 12/22/17 13:34 Results - Vital Signs Recent Vital Signs: Last Vital Signs Temp 98.0 F 04/07/18 18:45 Pulse 102 H 04/07/18 18:45 Resp 22 04/07/18 18:45 BP 117/68 04/07/18 18:45 Pulse Ox 98 04/07/18 18:45 - Labs Result Diagrams: 04/07/18 15:24 04/07/18 15:24 Labs: Laboratory Results - last 24 hr 04/07/18 04/07/18 04/07/18 14:25 15:24 15:24 WBC 7.2 RBC 3.60 L Hgb 9.0 L Hct 27.5 L MCV 76.3 L MCH 24.9 L MCHC 32.7 L RDW 20.6 H Plt Count 125 L MPV 10.5 Neut % (Auto) 73.1 Lymph % (Auto) 16.8 L Dup[place] % (Auto) 7.2 Eos % (Auto) 1.3 Baso % (Auto) 1.6 Neut # (Auto) 5.2 Lymph # (Auto) 1.2 Dup[place] # (Auto) 0.5 Eos # (Auto) 0.1 Baso # (Auto) 0.1 Differential Comment PT 13.0 H INR 1.2 APTT 34 Sodium Potassium Chloride Carbon Dioxide Anion Gap BUN Creatinine Est GFR ( Amer) Est GFR (Non-Af Amer) POC Glucose (mg/dL) 166 H Random Glucose Calcium Total Bilirubin AST ALT Alkaline Phosphatase Total Creatine Kinase Troponin I NT-Pro-B Natriuret Pep Total Protein Albumin Globulin Albumin/Globulin Ratio Lipase Urine Color Urine Clarity Urine pH Ur Specific Mcgrady Urine Protein Urine Glucose (UA) Urine Ketones Urine Blood Urine Nitrate Urine Bilirubin Urine Urobilinogen Ur Leukocyte Esterase Urine WBC (Auto) Urine RBC (Auto) Ur Squamous Epith Cells Urine Bacteria Hyaline Casts 09/20/18 09/20/18 15:24 17:51 WBC RBC Hgb Hct MCV MCH MCHC RDW Plt Count MPV Neut % (Auto) Lymph % (Auto) Dup[place] % (Auto) Eos % (Auto) Baso % (Auto) Neut # (Auto) Lymph # (Auto) Dup[place] # (Auto) Eos # (Auto) Baso # (Auto) Differential Comment PT INR APTT Sodium 139 Potassium 4.2 Chloride 105 Carbon Dioxide 23 Anion Gap 15 BUN 14 Creatinine 1.3 H Est GFR ( Amer) 47 Est GFR (Non-Af Amer) 39 POC Glucose (mg/dL) Random Glucose 162 H Calcium 9.2 Total Bilirubin 0.8 AST 26 ALT 19 Alkaline Phosphatase 71 Total Creatine Kinase 144 H Troponin I 0.0280 NT-Pro-B Natriuret Pep 60464 H Total Protein 6.3 Albumin 3.5 Globulin 2.9 Albumin/Globulin Ratio 1.2 Lipase 201 Urine Color Yellow Urine Clarity Clear Urine pH 5.0 Ur Specific Mcgrady 1.008 Urine Protein Negative Urine Glucose (UA) Normal Urine Ketones Negative Urine Blood 2+ H Urine Nitrate Negative Urine Bilirubin Negative Urine Urobilinogen Normal Ur Leukocyte Esterase Neg Urine WBC (Auto) 2 Urine RBC (Auto) 20 H Ur Squamous Epith Cells 1 Urine Bacteria Rare Hyaline Casts 3-5 H
[2018-04-07] MEDS ORDERED: Albuterol-Ipratrop 3 mg / 0.5 (3 ml) UD INH PRN (23:01)
[2018-04-08 01:45] LABS: CK-MB 2.7 ng/mL (0.0-3.38); TROPONIN I 0.027 ng/mL (0.00-0.120)
[2018-04-08] MEDS: Albuterol-Ipratrop 3 mg / 0.5 (3 ml) UD INH SCH ×6 (03:10→23:36)
[2018-04-08 08:03] LABS: INR 1.2; PROTHROMBIN TIME 12.9 SECONDS (9.7-12.2)
[2018-04-08 08:07] LABS: BASO % 0.1 % (0.0-2.0); HEMOGLOBIN 8.7 g/dL (11.0-16.0); LYMPH # 0.3 K/uL (1.0-4.3); LYMPH % 5.5 % (20.0-40.0); MEAN CELL VOLUME 76.5 fL (81.0-99.0); MEAN CORPUSCULAR HEMOGLOBIN 25.2 pg (27.0-31.0); MEAN PLATELET VOLUME 10.7 fL (7.2-11.7); MONO # 0.1 K/uL (0.0-0.8); MONO % 1.4 % (0.0-10.0); NEUT # 5.1 K/uL (1.8-7.0); NRBC % 0.1 % (0.0-2.0); RBC 3.44 Mil/uL (3.80-5.20); RED CELL DISTRIBUTION WIDTH 20.4 % (11.5-14.5); WHITE BLOOD COUNT 5.5 K/uL (4.8-10.8)
[2018-04-08 08:14] LABS: ALB/GLOB RATIO 1.3 (1.0-2.1); ALBUMIN 3.4 g/dL (3.5-5.0); CALCIUM 8.9 mg/dl (8.6-10.4)
[2018-04-08 08:24] LABS: CK-MB 2.54 ng/mL (0.0-3.38); TROPONIN I 0.028 ng/mL (0.00-0.120)
[2018-04-08 08:26] LABS: PLATELET COUNT 112 K/uL (130-400)
[2018-04-08] MEDS: (Novolin R) Insulin Human Regular 100 units/ml vial SC SCH ×4 (08:36→22:01)
[2018-04-08] MEDS: Sacubitril/Valsartan 24-26mg Tab PO SCH (09:30)
[2018-04-08] MEDS ORDERED: Home Med 1 UNIT (Alendronate [Fosamax] 70 MG) PO SCH (10:00)
[2018-04-08] MEDS ORDERED: Enoxaparin 40 mg Syringe SC SCH (10:00)
[2018-04-08 10:34] LABS: ANISOCYTOSIS MODERATE; LYMPHOCYTE 6 % (20-40); MONOCYTE 1 % (0-10); NEUTROPHIL 93 % (50-75); PLATELET ESTIMATE SLIGHTLY DECREASED (NORMAL); TOTAL CELLS COUNTED 100
[2018-04-08 10:35] LABS: HYPOCHROMIC SLIGHT
--- NOTE | 2018-04-08 12:02 | CP.PCM.CON ---
History of Present Illness - History of Present Illness History of Present Illness: INFECTIOUS DISEASE CONSULT; HPI;87-year-old female with multiple medical problems including ischemic cardiomyopathy, CAD with 2 stents, ejection fraction 30%, type 2 diabetes mellitus, COPD, an AICD who is admitted by the emergency room complaining off shortness of breath, cough with yellowish whitish expectorant and increased wheezing. Patient also was experiencing shortness of breath at rest. In the emergency room patient was found to have proBNP of 29,000 with chest x-ray showing low inspiratory volumes, and chronic interstitial changes but no evidence of alveolitis or PVC. Patient underwent a CT of the abdomen and pelvis which showed some thickening of the wall of the descending colon suggestive of colitis. The CT did not reveal diverticulitis. Patient was recently found to have lower abdominal pain with mucoid stools and was given by mouth Flagyl by a local M.D. which he visited. Patient also has anemia and had a hemoglobin 8.7. Patient also complains of generalized fatigue and tiredness overall. INFECTIOUS DISEASE CONSULTATION REQUESTED BY PMD FOR EVALUATION OF PNEUMONIA AND EXACERBATION OF COPD. PATIENT STILL COMPLAINS OFF 2-3 MUCOID STOOLS ALTERNATING WITH SOFT STOOLS. pATIENT DENIES HISTORY OF MELENA, NAUSEA OR VOMITING. PATIENT WAS STARTED ON iv rOCEPHIN 1 G ONCE A DAY . PMH: Anemia, Anxiety, Arthritis, Asthma, Cardia Arrhythmia, CHF, COPD, Diabetes , HTN, Hypercholesterolemia, TIA Denies: Chronic Kidney Disease Surgical History: Appendectomy, Coronary Stent, Endoscopy, Pacemaker (2015) - [facility] Procedures ASSISTANCE WITH RESPIRATORY VENTILATION, 24-96 HRS, CPAP (06/15/17) ASSISTANCE WITH RESPIRATORY VENTILATION, <24 HRS, CPAP (02/06/16) ESOPHAGOGASTRODUODENOSCOPY [EGD] W/CLOSED BIOPSY (12/30/14) LEFT HEART CARDIAC CATH (10/19/13) LT HEART ANGIOCARDIOGRAM (10/19/13) MEASURE OF CARDIAC SAMPL & PRESSURE, L HEART, PERC APPROACH (05/21/15) PACKED CELL TRANSFUSION (12/30/14) PLAIN RADIOGRAPHY OF MULT COR ART USING OTH CONTRAST (05/21/15) TRANSFUSE NONAUT RED BLOOD CELLS IN PERIPH VEIN, PERC (02/06/16) Family History: States: No Known Family Hx - Social History Hx Tobacco Use: No Hx Alcohol Use: No Hx Substance Use: No - Immunization History Hx Tetanus Toxoid Vaccination: No Hx Influenza Vaccination: Yes Hx Pneumococcal Vaccination: Yes ALLERGY;CLOPIDOGREL. Review of Systems - Constitutional Constitutional: Fatigue. absent: Chills, Fever - EENT Eyes: absent: Change in Vision Nose/Mouth/Throat: absent: Mouth Lesions, Sore Throat - Cardiovascular Cardiovascular: Dyspnea, Dyspnea on Exertion. absent: Chest Pain - Respiratory Respiratory: Cough, Change in Mucous Color. absent: Pain with Coughing - Gastrointestinal Gastrointestinal: Abdominal Pain (LOWER ABDOMINAL PAIN.), Change in Stool Character, Loose Stools. absent: Nausea, Vomiting - Genitourinary Genitourinary: Freq UTI - Neurological Neurological: absent: Headaches - Hematologic/Lymphatic Hematologic: As Per HPI Past Patient History - Infectious Disease Hx of Infectious Diseases: None - Tetanus Immunizations Tetanus Immunization: Unknown - Past Medical History & Family History Past Medical History?: Yes - Past Social History Smoking Status: Never Smoked - CARDIAC Hx Cardia Arrhythmia: Yes Hx Congestive Heart Failure: Yes Hx Hypercholesterolemia: Yes Hx Hypertension: Yes Hx Pacemaker: Yes (2015) - PULMONARY Hx Asthma: Yes Hx Chronic Obstructive Pulmonary Disease (COPD): Yes - NEUROLOGICAL Hx Transient Ischemic Attacks (TIA): Yes - HEENT Hx HEENT Problems: No - RENAL Hx Chronic Kidney Disease: No - ENDOCRINE/METABOLIC Hx Diabetes Mellitus Type 2: Yes - HEMATOLOGICAL/ONCOLOGICAL Hx Anemia: Yes - INTEGUMENTARY Hx Dermatological Problems: No - MUSCULOSKELETAL/RHEUMATOLOGICAL Hx Arthritis: Yes - GASTROINTESTINAL Hx Gastrointestinal Disorders: No - GENITOURINARY/GYNECOLOGICAL Hx Genitourinary Disorders: No - PSYCHIATRIC Hx Anxiety: Yes Hx Substance Use: No - SURGICAL HISTORY Hx Appendectomy: Yes Hx Coronary Stent: Yes - ANESTHESIA Hx Anesthesia: Yes Hx Anesthesia Reactions: No Hx Malignant Hyperthermia: No Meds Allergies/Adverse Reactions: Allergies Allergy/AdvReac Type Severity Reaction Status Date / Time clopidogrel Allergy Mild SWELLING Verified 12/22/17 13:34 - Medications Medications: Current Medications Albuterol/Ipratropium (Duoneb 3 Mg/0.5 Mg (3 Ml) Ud) 3 ml INH RQ4 PRN PRN Reason: Cough and congestion Albuterol/Ipratropium (Duoneb 3 Mg/0.5 Mg (3 Ml) Ud) 3 ml INH RQ4 JONNA Last Admin: 04/08/18 11:05 Dose: 3 ml Aspirin (Ecotrin) 81 mg PO DAILY [facility] Last Admin: 04/08/18 09:30 Dose: 81 mg Ergocalciferol (Drisdol 50,000 Intl Units Cap) 1 cap PO QWK [facility] Furosemide (Lasix) 40 mg IVP DAILY [facility] Last Admin: 04/08/18 09:30 Dose: 40 mg Heparin Sodium (Porcine) (Heparin) 5,000 units SC Q12 [facility] Last Admin: 04/08/18 09:31 Dose: 5,000 units Ceftriaxone Sodium 1 gm/ (Sodium Chloride) 100 mls @ 100 mls/hr IVPB DAILY [facility] PRN Reason: Protocol Last Admin: 04/08/18 09:31 Dose: 100 mls/hr Insulin Human Regular (Novolin R) 0 unit SC ACHS [facility] PRN Reason: Protocol Last Admin: 04/08/18 08:36 Dose: 3 u Methylprednisolone (Solu-Medrol) 60 mg IV Q6 [facility] Last Admin: 04/08/18 05:19 Dose: 60 mg Metoprolol Tartrate (Lopressor) 25 mg PO BID [facility] Last Admin: 04/08/18 09:30 Dose: 25 mg Pneumococcal Polyvalent Vaccine (Pneumovax 23 Vaccine) 0.5 ml IM .ONCE ONE Stop: 04/09/18 10:01 Repaglinide (Prandin) 2 mg PO DAILY [facility] Last Admin: 04/08/18 09:30 Dose: 2 mg Rosuvastatin Calcium (Crestor) 20 mg PO [facility] Sacubitril/Valsartan (Entresto 24 Mg-26 Mg) 1 tab PO DAILY [facility] Last Admin: 04/08/18 09:30 Dose: 1 tab Ticagrelor (Brilinta) 90 mg PO BID [facility] Last Admin: 04/08/18 09:31 Dose: 90 mg Physical Exam - Constitutional Appears: No Acute Distress, Cachectic - Head Exam Head Exam: NORMAL INSPECTION - Eye Exam Eye Exam: EOMI, PERRL Pupil Exam: NORMAL ACCOMODATION - ENT Exam ENT Exam: Mucous Membranes Moist - Neck Exam Neck exam: Positive for: Normal Inspection. Negative for: Meningismus - Respiratory Exam Respiratory Exam: Prolonged Expiratory Phase, Wheezes - Cardiovascular Exam Cardiovascular Exam: REGULAR RHYTHM, +S1, +S2 - GI/Abdominal Exam GI & Abdominal Exam: Normal Bowel Sounds, Soft, Tenderness (LOWER ABDOMINAL DISCOMFORT ON DEEP PALPATION.). absent: Rebound - Extremities Exam Extremities exam: Positive for: pedal pulses present. Negative for: calf tenderness, pedal edema - Neurological Exam Neurological exam: Normal Gait - Psychiatric Exam Psychiatric exam: Normal Mood - Skin Skin Exam: Pallor, Warm Results - Vital Signs Recent Vital Signs: Last Vital Signs Temp 97.8 F 04/08/18 07:59 Pulse 91 H 04/08/18 07:59 Resp 20 04/08/18 07:59 BP 130/69 04/08/18 09:30 Pulse Ox 100 04/08/18 11:00 - Labs Result Diagrams: 04/08/18 07:42 04/08/18 07:50 Labs: Laboratory Results - last 24 hr 04/07/18 04/07/18 04/07/18 14:25 15:24 15:24 WBC 7.2 RBC 3.60 L Hgb 9.0 L Hct 27.5 L MCV 76.3 L MCH 24.9 L MCHC 32.7 L RDW 20.6 H Plt Count 125 L MPV 10.5 Neut % (Auto) 73.1 Lymph % (Auto) 16.8 L [place] % (Auto) 7.2 Eos % (Auto) 1.3 Baso % (Auto) 1.6 Neut # (Auto) 5.2 Lymph # (Auto) 1.2 [place] # (Auto) 0.5 Eos # (Auto) 0.1 Baso # (Auto) 0.1 Neutrophils % (Manual) Lymphocytes % (Manual) Monocytes % (Manual) Differential Comment Platelet Estimate Hypochromasia (manual) Anisocytosis (manual) PT 13.0 H INR 1.2 APTT 34 Sodium Potassium Chloride Carbon Dioxide Anion Gap BUN Creatinine Est GFR ( Amer) Est GFR (Non-Af Amer) POC Glucose (mg/dL) 166 H Random Glucose Calcium Phosphorus Magnesium Total Bilirubin AST ALT Alkaline Phosphatase Total Creatine Kinase CK-MB (Mass) Troponin I NT-Pro-B Natriuret Pep Total Protein Albumin Globulin Albumin/Globulin Ratio Lipase Urine Color Urine Clarity Urine pH Ur Specific [place] Urine Protein Urine Glucose (UA) Urine Ketones Urine Blood Urine Nitrate Urine Bilirubin Urine Urobilinogen Ur Leukocyte Esterase Urine WBC (Auto) Urine RBC (Auto) Ur Squamous Epith Cells Urine Bacteria Hyaline Casts 04/07/18 04/07/18 04/07/18 15:24 17:51 20:58 WBC RBC Hgb Hct MCV MCH MCHC RDW Plt Count MPV Neut % (Auto) Lymph % (Auto) [place] % (Auto) Eos % (Auto) Baso % (Auto) Neut # (Auto) Lymph # (Auto) [place] # (Auto) Eos # (Auto) Baso # (Auto) Neutrophils % (Manual) Lymphocytes % (Manual) Monocytes % (Manual) Differential Comment Platelet Estimate Hypochromasia (manual) Anisocytosis (manual) PT INR APTT Sodium 139 Potassium 4.2 Chloride 105 Carbon Dioxide 23 Anion Gap 15 BUN 14 Creatinine 1.3 H Est GFR ( Amer) 47 Est GFR (Non-Af Amer) 39 POC Glucose (mg/dL) 286 H Random Glucose 162 H Calcium 9.2 Phosphorus Magnesium Total Bilirubin 0.8 AST 26 ALT 19 Alkaline Phosphatase 71 Total Creatine Kinase 144 H CK-MB (Mass) Troponin I 0.0280 NT-Pro-B Natriuret Pep 82495 H Total Protein 6.3 Albumin 3.5 Globulin 2.9 Albumin/Globulin Ratio 1.2 Lipase 201 Urine Color Yellow Urine Clarity Clear Urine pH 5.0 Ur Specific [place] 1.008 Urine Protein Negative Urine Glucose (UA) Normal Urine Ketones Negative Urine Blood 2+ H Urine Nitrate Negative Urine Bilirubin Negative Urine Urobilinogen Normal Ur Leukocyte Esterase Neg Urine WBC (Auto) 2 Urine RBC (Auto) 20 H Ur Squamous Epith Cells 1 Urine Bacteria Rare Hyaline Casts 3-5 H 04/08/18 04/08/18 04/08/18 01:11 07:42 07:42 WBC 5.5 RBC 3.44 L Hgb 8.7 L Hct 26.3 L MCV 76.5 L MCH 25.2 L MCHC 33.0 RDW 20.4 H Plt Count 112 L MPV 10.7 Neut % (Auto) 93.0 H Lymph % (Auto) 5.5 L [place] % (Auto) 1.4 Eos % (Auto) 0.0 Baso % (Auto) 0.1 Neut # (Auto) 5.1 Lymph # (Auto) 0.3 L [place] # (Auto) 0.1 Eos # (Auto) 0.0 Baso # (Auto) 0.0 Neutrophils % (Manual) 93 H Lymphocytes % (Manual) 6 L Monocytes % (Manual) 1 Differential Comment Platelet Estimate Slightly decreased L Hypochromasia (manual) Slight Anisocytosis (manual) Moderate PT 12.9 H INR 1.2 APTT 30 Sodium Potassium Chloride Carbon Dioxide Anion Gap BUN Creatinine Est GFR ( Amer) Est GFR (Non-Af Amer) POC Glucose (mg/dL) Random Glucose Calcium Phosphorus Magnesium Total Bilirubin AST ALT Alkaline Phosphatase Total Creatine Kinase 148 H CK-MB (Mass) 2.70 Troponin I 0.0270 NT-Pro-B Natriuret Pep Total Protein Albumin Globulin Albumin/Globulin Ratio Lipase Urine Color Urine Clarity Urine pH Ur Specific [place] Urine Protein Urine Glucose (UA) Urine Ketones Urine Blood Urine Nitrate Urine Bilirubin Urine Urobilinogen Ur Leukocyte Esterase Urine WBC (Auto) Urine RBC (Auto) Ur Squamous Epith Cells Urine Bacteria Hyaline Casts 04/08/18 07:50 WBC RBC Hgb Hct MCV MCH MCHC RDW Plt Count MPV Neut % (Auto) Lymph % (Auto) [place] % (Auto) Eos % (Auto) Baso % (Auto) Neut # (Auto) Lymph # (Auto) [place] # (Auto) Eos # (Auto) Baso # (Auto) Neutrophils % (Manual) Lymphocytes % (Manual) Monocytes % (Manual) Differential Comment Platelet Estimate Hypochromasia (manual) Anisocytosis (manual) PT INR APTT Sodium 141 Potassium 3.8 Chloride 103 Carbon Dioxide 24 Anion Gap 17 BUN 18 H Creatinine 1.4 H Est GFR ( Amer) 43 Est GFR (Non-Af Amer) 36 POC Glucose (mg/dL) Random Glucose 256 H Calcium 8.9 Phosphorus 3.6 Magnesium 1.9 Total Bilirubin 0.4 AST 18 ALT 23 Alkaline Phosphatase 61 Total Creatine Kinase 134 CK-MB (Mass) 2.54 Troponin I 0.0280 NT-Pro-B Natriuret Pep Total Protein 6.1 L Albumin 3.4 L Globulin 2.7 Albumin/Globulin Ratio 1.3 Lipase Urine Color Urine Clarity Urine pH Ur Specific [place] Urine Protein Urine Glucose (UA) Urine Ketones Urine Blood Urine Nitrate Urine Bilirubin Urine Urobilinogen Ur Leukocyte Esterase Urine WBC (Auto) Urine RBC (Auto) Ur Squamous Epith Cells Urine Bacteria Hyaline Casts - Imaging and Cardiology CT scan - abdomenand pelvis with by mouth contrast Status: Report reviewed by me Assessment & Plan (1) Chr obstructive pulmonary disease w/ acute lower respiratory infxn Status: Acute (2) Chronic congestive heart failure Status: Acute (3) Anemia Status: Acute (4) Colitis Status: Acute (5) HTN (hypertension) Status: Acute (6) DM type 2 (diabetes mellitus, type 2) Status: Acute - Assessment and Plan (Free Text) Plan: PLAN. pANCULTURES aTYPICAL TITERS MRSA SCREEN. SPUTUM gRAM STAIN AND CULTURE dIARRHEA WORKUP. STOOLS FOR c. DIFFICILE TOXIN ORDERED BY GI. cONTINUE iv rOCEPHIN 1 G ONCE A DAY 04/07/18. dECREASE STEROIDS IF FEASIBLE. pEPCID 20 MG BY MOUTH TWICE A DAY. gi WORKUP IN ORDER WILL FOLLOW ALONG WITH YOU. .
--- NOTE | 2018-04-08 13:52 | CP.PCM.PN ---
Subjective - Date & Time of Evaluation Date of Evaluation: 04/08/18 Time of Evaluation: 13:49 - Subjective Subjective: CHIEF COMPLAINTS TODAY : Patient is still coughing wheezing with mild expectoration Generalized weakness ROS. HEENT : N. Resp : No hemoptysis Cardio : No anginal CP, PND, orthopnea, palpitation GI : No abd.pain, n/v ,diarrhea or GI bleeding . [employer] : No headache, vertigo, focal deficit. Musculoskel : No joint swelling , Derm : No rash Psych : Normal affect. Ext : No swelling ,calf pain PE. Pt. is alert awake in no distress. V.S As noted in the chart Head ,ear nose,throat and eyes : Normal. Neck : Supple with normal carotids. Lungs: Bilateral poor air entry with rhonchis at the bases Heart : S1 & S2 normal with S4. No murmur. Abd : Soft non tender with normal bowel sounds. Neuro : Moves all ext. with no localized deficit. Ext : No edema with intact pulses.Non tender calves Derm : No rashes or decubitus ulcer. LABS/RADIOLOGY: CT of the abdomen shows thickening of the descending wall ASSESSMENT/PLAN : Decrease steroids Continue IV antibiotics GI evaluation Objective - Vital Signs/Intake and Output Vital Signs (last 24 hours): Temp Pulse Resp BP Pulse Ox 97.8 F 91 H 20 130/69 100 04/08/18 07:59 04/08/18 07:59 04/08/18 07:59 04/08/18 09:30 04/08/18 11:00 Intake and Output: 04/08/18 04/08/18 11:59 23:59 Intake Total 120 Balance 120 - Medications Medications: Current Medications Albuterol/Ipratropium (Duoneb 3 Mg/0.5 Mg (3 Ml) Ud) 3 ml INH RQ4 PRN PRN Reason: Cough and congestion Albuterol/Ipratropium (Duoneb 3 Mg/0.5 Mg (3 Ml) Ud) 3 ml INH RQ4 JONNA Last Admin: 04/08/18 11:05 Dose: 3 ml Aspirin (Ecotrin) 81 mg PO DAILY [facility] Last Admin: 04/08/18 09:30 Dose: 81 mg Ergocalciferol (Drisdol 50,000 Intl Units Cap) 1 cap PO QWK [facility] Famotidine (Pepcid) 20 mg PO BID [facility] Furosemide (Lasix) 40 mg IVP DAILY [facility] Last Admin: 04/08/18 09:30 Dose: 40 mg Heparin Sodium (Porcine) (Heparin) 5,000 units SC Q12 [facility] Last Admin: 04/08/18 09:31 Dose: 5,000 units Ceftriaxone Sodium 1 gm/ (Sodium Chloride) 100 mls @ 100 mls/hr IVPB DAILY [facility] PRN Reason: Protocol Last Admin: 04/08/18 09:31 Dose: 100 mls/hr Insulin Human Regular (Novolin R) 0 unit SC ACHS [facility] PRN Reason: Protocol Last Admin: 04/08/18 12:06 Dose: 4 u Methylprednisolone (Solu-Medrol) 60 mg IV Q6 [facility] Last Admin: 04/08/18 12:11 Dose: 60 mg Metoprolol Tartrate (Lopressor) 25 mg PO BID [facility] Last Admin: 04/08/18 09:30 Dose: 25 mg Pneumococcal Polyvalent Vaccine (Pneumovax 23 Vaccine) 0.5 ml IM .ONCE ONE Stop: 04/09/18 10:01 Repaglinide (Prandin) 2 mg PO DAILY [facility] Last Admin: 04/08/18 09:30 Dose: 2 mg Rosuvastatin Calcium (Crestor) [address] [facility] Sacubitril/Valsartan (Entresto 24 Mg-26 Mg) 1 tab PO DAILY [facility] Last Admin: 04/08/18 09:30 Dose: 1 tab Ticagrelor (Brilinta) 90 mg PO BID [facility] Last Admin: 04/08/18 09:31 Dose: 90 mg - Labs Labs: 04/08/18 07:42 04/08/18 07:50 PT 12.9 SECONDS (9.7-12.2) H 04/08/18 07:42 INR 1.2 04/08/18 07:42 APTT 30 SECONDS (21-34) 04/08/18 07:42
[2018-04-08] MEDS ORDERED: MethylPREDNISolone 40 mg Vial IV SCH (14:00)
--- NOTE | 2018-04-08 16:09 | CP.PCM.CON ---
History of Present Illness - History of Present Illness History of Present Illness: CC: GI consult for abnormal CT appearance of Colon HPI: 87 year old woman with severe cardiomyopathy, COPD, AICD admitted yesterday with cough and dyspnea. Patient has frequent post prandial upper abdominal pain. EGD done in 2014 showed large hiatal hernia. Patient has long history of microcytic anemia. She states she had colonoscopy around 5 years ago , but details are presently inknown. Patient was found to have left colonic thickening on CT with diverticulosis. She was begun on antibiotics. Patient notes yellow mucoid stools. Review of Systems - Constitutional Constitutional: absent: Chills - EENT Eyes: absent: Change in Vision Ears: absent: Ear Pain Nose/Mouth/Throat: absent: Epistaxis - Cardiovascular Cardiovascular: Chest Pain - Respiratory Respiratory: Cough, Dyspnea - Gastrointestinal Gastrointestinal: Abdominal Pain, Bloating, Constipation. absent: Hematochezia , Melena - Genitourinary Genitourinary: absent: Difficulty Urinating - Musculoskeletal Musculoskeletal: absent: Back Pain - Integumentary Integumentary: absent: Jaundice - Neurological Neurological: absent: Dizziness - Psychiatric Psychiatric: absent: Confusion Past Patient History - Infectious Disease Hx of Infectious Diseases: None - Tetanus Immunizations Tetanus Immunization: Unknown - Past Medical History & Family History Past Medical History?: Yes - Past Social History Smoking Status: Never Smoked - CARDIAC Hx Cardia Arrhythmia: Yes Hx Congestive Heart Failure: Yes Hx Hypercholesterolemia: Yes Hx Hypertension: Yes Hx Pacemaker: Yes (2016) - PULMONARY Hx Asthma: Yes Hx Chronic Obstructive Pulmonary Disease (COPD): Yes - NEUROLOGICAL Hx Transient Ischemic Attacks (TIA): Yes - HEENT Hx HEENT Problems: No - RENAL Hx Chronic Kidney Disease: No - ENDOCRINE/METABOLIC Hx Diabetes Mellitus Type 2: Yes - HEMATOLOGICAL/ONCOLOGICAL Hx Anemia: Yes - INTEGUMENTARY Hx Dermatological Problems: No - MUSCULOSKELETAL/RHEUMATOLOGICAL Hx Arthritis: Yes - GASTROINTESTINAL Hx Gastrointestinal Disorders: No - GENITOURINARY/GYNECOLOGICAL Hx Genitourinary Disorders: No - PSYCHIATRIC Hx Anxiety: Yes Hx Substance Use: No - SURGICAL HISTORY Hx Appendectomy: Yes Hx Coronary Stent: Yes - ANESTHESIA Hx Anesthesia: Yes Hx Anesthesia Reactions: No Hx Malignant Hyperthermia: No Meds Allergies/Adverse Reactions: Allergies Allergy/AdvReac Type Severity Reaction Status Date / Time clopidogrel Allergy Mild SWELLING Verified 12/22/17 13:34 - Medications Medications: Current Medications Albuterol/Ipratropium (Duoneb 3 Mg/0.5 Mg (3 Ml) Ud) 3 ml INH RQ4 PRN PRN Reason: Cough and congestion Albuterol/Ipratropium (Duoneb 3 Mg/0.5 Mg (3 Ml) Ud) 3 ml INH RQ4 [facility] Last Admin: 04/08/18 15:44 Dose: 3 ml Aspirin (Ecotrin) 81 mg PO DAILY [facility] Last Admin: 04/08/18 09:30 Dose: 81 mg Ergocalciferol (Drisdol 50,000 Intl Units Cap) 1 cap PO QWK [facility] Famotidine (Pepcid) 20 mg PO BID [facility] Furosemide (Lasix) 40 mg IVP DAILY [facility] Last Admin: 04/08/18 09:30 Dose: 40 mg Heparin Sodium (Porcine) (Heparin) 5,000 units SC Q12 [facility] Last Admin: 04/08/18 09:31 Dose: 5,000 units Ceftriaxone Sodium 1 gm/ (Sodium Chloride) 100 mls @ 100 mls/hr IVPB DAILY [facility] PRN Reason: Protocol Last Admin: 04/08/18 09:31 Dose: 100 mls/hr Insulin Human Regular (Novolin R) 0 unit SC ACHS [facility] PRN Reason: Protocol Last Admin: 04/08/18 12:06 Dose: 4 u Methylprednisolone (Solu-Medrol) 30 mg IV Q6H [facility] Metoprolol Tartrate (Lopressor) 25 mg PO BID [facility] Last Admin: 04/08/18 09:30 Dose: 25 mg Pneumococcal Polyvalent Vaccine (Pneumovax 23 Vaccine) 0.5 ml IM .ONCE ONE Stop: 04/09/18 10:01 Repaglinide (Prandin) 2 mg PO DAILY [facility] Last Admin: 04/08/18 09:30 Dose: 2 mg Rosuvastatin Calcium (Crestor) 20 mg PO HS [facility] Sacubitril/Valsartan (Entresto 24 Mg-26 Mg) 1 tab PO DAILY [facility] Last Admin: 04/08/18 09:30 Dose: 1 tab Ticagrelor (Brilinta) 90 mg PO BID [facility] Last Admin: 04/08/18 09:31 Dose: 90 mg Physical Exam - Constitutional Appears: Younger Than Stated Age, Chronically Ill - Head Exam Head Exam: NORMOCEPHALIC - Eye Exam Eye Exam: absent: Scleral icterus - ENT Exam ENT Exam: Normal Exam - Neck Exam Neck exam: Positive for: Normal Inspection - Respiratory Exam Respiratory Exam: Clear to Auscultation Bilateral - Cardiovascular Exam Cardiovascular Exam: REGULAR RHYTHM - GI/Abdominal Exam GI & Abdominal Exam: Normal Bowel Sounds, Soft. absent: Distended, Mass, Rebound, Tenderness - Rectal Exam Rectal Exam: Deferred - Extremities Exam Extremities exam: Positive for: normal inspection Results - Vital Signs Recent Vital Signs: Last Vital Signs Temp 98.2 F 04/08/18 15:52 Pulse 97 H 04/08/18 15:52 Resp 20 04/08/18 15:52 BP 99/56 L 04/08/18 15:52 Pulse Ox 100 04/08/18 15:52 - Labs Result Diagrams: 04/08/18 07:42 04/08/18 07:50 Labs: Laboratory Results - last 24 hr 04/07/18 04/07/18 04/07/18 15:24 15:24 17:51 WBC 7.2 RBC 3.60 L Hgb 9.0 L Hct 27.5 L MCV 76.3 L MCH 24.9 L MCHC 32.7 L RDW 20.6 H Plt Count 125 L MPV 10.5 Neut % (Auto) 73.1 Lymph % (Auto) 16.8 L [place] % (Auto) 7.2 Eos % (Auto) 1.3 Baso % (Auto) 1.6 Neut # (Auto) 5.2 Lymph # (Auto) 1.2 [place] # (Auto) 0.5 Eos # (Auto) 0.1 Baso # (Auto) 0.1 Neutrophils % (Manual) Lymphocytes % (Manual) Monocytes % (Manual) Differential Comment Platelet Estimate Hypochromasia (manual) Anisocytosis (manual) PT INR APTT Sodium Potassium Chloride Carbon Dioxide Anion Gap BUN Creatinine Est GFR ( Amer) Est GFR (Non-Af Amer) POC Glucose (mg/dL) Random Glucose Calcium Phosphorus Magnesium Total Bilirubin AST ALT Alkaline Phosphatase Total Creatine Kinase CK-MB (Mass) Troponin I 0.0280 NT-Pro-B Natriuret Pep 70203 H Total Protein Albumin Globulin Albumin/Globulin Ratio Urine Color Yellow Urine Clarity Clear Urine pH 5.0 Ur Specific [place] 1.008 Urine Protein Negative Urine Glucose (UA) Normal Urine Ketones Negative Urine Blood 2+ H Urine Nitrate Negative Urine Bilirubin Negative Urine Urobilinogen Normal Ur Leukocyte Esterase Neg Urine WBC (Auto) 2 Urine RBC (Auto) 20 H Ur Squamous Epith Cells 1 Urine Bacteria Rare Hyaline Casts 3-5 H 04/07/18 04/08/18 04/08/18 20:58 01:11 07:05 WBC RBC Hgb Hct MCV MCH MCHC RDW Plt Count MPV Neut % (Auto) Lymph % (Auto) [place] % (Auto) Eos % (Auto) Baso % (Auto) Neut # (Auto) Lymph # (Auto) [place] # (Auto) Eos # (Auto) Baso # (Auto) Neutrophils % (Manual) Lymphocytes % (Manual) Monocytes % (Manual) Differential Comment Platelet Estimate Hypochromasia (manual) Anisocytosis (manual) PT INR APTT Sodium Potassium Chloride Carbon Dioxide Anion Gap BUN Creatinine Est GFR ( Amer) Est GFR (Non-Af Amer) POC Glucose (mg/dL) 286 H 241 H Random Glucose Calcium Phosphorus Magnesium Total Bilirubin AST ALT Alkaline Phosphatase Total Creatine Kinase 148 H CK-MB (Mass) 2.70 Troponin I 0.0270 NT-Pro-B Natriuret Pep Total Protein Albumin Globulin Albumin/Globulin Ratio Urine Color Urine Clarity Urine pH Ur Specific [place] Urine Protein Urine Glucose (UA) Urine Ketones Urine Blood Urine Nitrate Urine Bilirubin Urine Urobilinogen Ur Leukocyte Esterase Urine WBC (Auto) Urine RBC (Auto) Ur Squamous Epith Cells Urine Bacteria Hyaline Casts 04/08/18 04/08/18 04/08/18 07:42 07:42 07:50 WBC 5.5 RBC 3.44 L Hgb 8.7 L Hct 26.3 L MCV 76.5 L MCH 25.2 L MCHC 33.0 RDW 20.4 H Plt Count 112 L MPV 10.7 Neut % (Auto) 93.0 H Lymph % (Auto) 5.5 L [place] % (Auto) 1.4 Eos % (Auto) 0.0 Baso % (Auto) 0.1 Neut # (Auto) 5.1 Lymph # (Auto) 0.3 L [place] # (Auto) 0.1 Eos # (Auto) 0.0 Baso # (Auto) 0.0 Neutrophils % (Manual) 93 H Lymphocytes % (Manual) 6 L Monocytes % (Manual) 1 Differential Comment Platelet Estimate Slightly decreased L Hypochromasia (manual) Slight Anisocytosis (manual) Moderate PT 12.9 H INR 1.2 APTT 30 Sodium 141 Potassium 3.8 Chloride 103 Carbon Dioxide 24 Anion Gap 17 BUN 18 H Creatinine 1.4 H Est GFR ( Amer) 43 Est GFR (Non-Af Amer) 36 POC Glucose (mg/dL) Random Glucose 256 H Calcium 8.9 Phosphorus 3.6 Magnesium 1.9 Total Bilirubin 0.4 AST 18 ALT 23 Alkaline Phosphatase 61 Total Creatine Kinase 134 CK-MB (Mass) 2.54 Troponin I 0.0280 NT-Pro-B Natriuret Pep Total Protein 6.1 L Albumin 3.4 L Globulin 2.7 Albumin/Globulin Ratio 1.3 Urine Color Urine Clarity Urine pH Ur Specific [place] Urine Protein Urine Glucose (UA) Urine Ketones Urine Blood Urine Nitrate Urine Bilirubin Urine Urobilinogen Ur Leukocyte Esterase Urine WBC (Auto) Urine RBC (Auto) Ur Squamous Epith Cells Urine Bacteria Hyaline Casts 04/08/18 11:41 WBC RBC Hgb Hct MCV MCH MCHC RDW Plt Count MPV Neut % (Auto) Lymph % (Auto) [place] % (Auto) Eos % (Auto) Baso % (Auto) Neut # (Auto) Lymph # (Auto) [place] # (Auto) Eos # (Auto) Baso # (Auto) Neutrophils % (Manual) Lymphocytes % (Manual) Monocytes % (Manual) Differential Comment Platelet Estimate Hypochromasia (manual) Anisocytosis (manual) PT INR APTT Sodium Potassium Chloride Carbon Dioxide Anion Gap BUN Creatinine Est GFR ( Amer) Est GFR (Non-Af Amer) POC Glucose (mg/dL) 293 H Random Glucose Calcium Phosphorus Magnesium Total Bilirubin AST ALT Alkaline Phosphatase Total Creatine Kinase CK-MB (Mass) Troponin I NT-Pro-B Natriuret Pep Total Protein Albumin Globulin Albumin/Globulin Ratio Urine Color Urine Clarity Urine pH Ur Specific [place] Urine Protein Urine Glucose (UA) Urine Ketones Urine Blood Urine Nitrate Urine Bilirubin Urine Urobilinogen Ur Leukocyte Esterase Urine WBC (Auto) Urine RBC (Auto) Ur Squamous Epith Cells Urine Bacteria Hyaline Casts Assessment & Plan (1) Anemia Assessment and Plan: Acute on chronic microcytic anemia. Has been transfused in past. GI endoscopic workup done 3-5 years ago, details not presently available. Now also thrombocytopenic. Rec: stool OB. Iron studies. Would not urgently perform endoscopic procedures due to multiple severe comorbidities and acute respiratory illness. Status: Acute (2) CHF exacerbation Status: Acute (3) Chronic congestive heart failure Status: Acute (4) Colitis Assessment and Plan: Suspect CDiff or antibiotic associated colitis Rec: minimize antibiotic use if possible. Check stool for CDiff toxin and if positive would treat with Vancomycin PO. Defer colonoscopy until patient is more medically stable. Status: Acute (5) CAD (coronary artery disease) Status: Acute (6) Cardiomyopathy Status: Acute - Date & Time Date: 04/08/18 Time: 16:15
[2018-04-08 17:06] LABS: CK-MB 3.16 ng/mL (0.0-3.38); TROPONIN I 0.023 ng/mL (0.00-0.120)
[2018-04-08] MEDS: MethylPREDNISolone 40 mg Vial IV SCH (19:12)
[2018-04-09] MEDS: MethylPREDNISolone 40 mg Vial IV SCH ×5 (00:24→23:55)
[2018-04-09] MEDS ORDERED: guaiFENesin DM 200 mg-20 mg/10 ml UD PO ONE (01:25)
[2018-04-09] MEDS: Albuterol-Ipratrop 3 mg / 0.5 (3 ml) UD INH SCH ×6 (03:15→23:33)
[2018-04-09 06:49] LABS: LYMPH # 0.2 K/uL (1.0-4.3); MEAN CORPUSCULAR HEMOGLOBIN 24.9 pg (27.0-31.0); MEAN CORPUSCULAR HGB CONC 32.7 g/dL (33.0-37.0); MEAN PLATELET VOLUME 10.8 fL (7.2-11.7); MONO # 0.5 K/uL (0.0-0.8); MONO % 3.9 % (0.0-10.0); NEUT # 11.6 K/uL (1.8-7.0); NEUT % 94.1 % (50.0-75.0); NRBC % 0.1 % (0.0-2.0); PLATELET COUNT 117 K/uL (130-400); RBC 3.22 Mil/uL (3.80-5.20); RED CELL DISTRIBUTION WIDTH 20.7 % (11.5-14.5); WHITE BLOOD COUNT 12.3 K/uL (4.8-10.8)
[2018-04-09 07:59] LABS: ALB/GLOB RATIO 1.2 (1.0-2.1); CALCIUM 8.5 mg/dl (8.6-10.4)
[2018-04-09] MEDS: (Novolin R) Insulin Human Regular 100 units/ml vial SC SCH ×4 (08:08→21:44)
[2018-04-09 09:12] LABS: ERYTHROCYTE SEDIMENTATION RATE 16 mm/hr (0-20)
[2018-04-09] MEDS ORDERED: Pneumococcal 23-Valent Vaccine IM ONE (10:00)
[2018-04-09] MEDS: Sacubitril/Valsartan 24-26mg Tab PO SCH (10:04)
[2018-04-09 10:36] LABS: BANDS 1 % (0-2); LYMPHOCYTE 2 % (20-40); MONOCYTE 3 % (0-10); NEUTROPHIL 94 % (50-75); PLATELET ESTIMATE SLIGHTLY DECREASED (NORMAL); TOTAL CELLS COUNTED 100
[2018-04-09 10:37] LABS: ANISOCYTOSIS MODERATE; HYPOCHROMIC MODERATE; OVALOCYTES SLIGHT; POIKILOCYTOSIS SLIGHT; TEARDROP CELLS SLIGHT
--- NOTE | 2018-04-09 10:59 | CP.PCM.PN ---
Subjective - Date & Time of Evaluation Date of Evaluation: 04/09/18 Time of Evaluation: 10:56 - Subjective Subjective: COVERING [place]/FRANK Mild diarrhea today but no pain. Resting comfortably Stool for C diff and other stool studies not reported Objective - Vital Signs/Intake and Output Vital Signs (last 24 hours): Temp Pulse Resp BP Pulse Ox 98.8 F 103 H 96 H 94/51 L 99 04/09/18 07:25 04/09/18 10:03 04/09/18 07:25 04/09/18 10:03 04/09/18 04:00 Intake and Output: 04/09/18 04/09/18 06:59 18:59 Intake Total 250 120 Balance 250 120 - Medications Medications: Current Medications Albuterol/Ipratropium (Duoneb 3 Mg/0.5 Mg (3 Ml) Ud) 3 ml INH RQ4 PRN PRN Reason: Cough and congestion Albuterol/Ipratropium (Duoneb 3 Mg/0.5 Mg (3 Ml) Ud) 3 ml INH RQ4 [facility] Last Admin: 04/09/18 08:03 Dose: 3 ml Aspirin (Ecotrin) 81 mg PO DAILY [facility] Last Admin: 04/09/18 10:04 Dose: 81 mg Ergocalciferol (Drisdol 50,000 Intl Units Cap) 1 cap PO QWK [facility] Famotidine (Pepcid) 20 mg PO BID [facility] Last Admin: 04/09/18 10:04 Dose: 20 mg Furosemide (Lasix) 40 mg IVP DAILY [facility] Last Admin: 04/09/18 10:06 Dose: Not Given Heparin Sodium (Porcine) (Heparin) 5,000 units SC Q12 [facility] Last Admin: 04/09/18 10:06 Dose: 5,000 units Ceftriaxone Sodium 1 gm/ (Sodium Chloride) 100 mls @ 100 mls/hr IVPB DAILY [facility] PRN Reason: Protocol Last Admin: 04/09/18 10:06 Dose: 100 mls/hr Insulin Human Regular (Novolin R) 0 unit SC ACHS [facility] PRN Reason: Protocol Last Admin: 04/09/18 08:08 Dose: 4 u Methylprednisolone (Solu-Medrol) 30 mg IV Q6H [facility] Last Admin: 04/09/18 05:15 Dose: 30 mg Metoprolol Tartrate (Lopressor) 25 mg PO BID [facility] Last Admin: 04/09/18 10:06 Dose: Not Given Repaglinide (Prandin) 2 mg PO DAILY [facility] Last Admin: 04/09/18 10:05 Dose: 2 mg Rosuvastatin Calcium (Crestor) 20 mg PO HS [facility] Last Admin: 04/08/18 21:46 Dose: 20 mg Sacubitril/Valsartan (Entresto 24 Mg-26 Mg) 1 tab PO DAILY [facility] Last Admin: 04/09/18 10:04 Dose: 1 tab Ticagrelor (Brilinta) 90 mg PO BID [facility] Last Admin: 04/09/18 10:04 Dose: 90 mg - Labs Labs: 04/09/18 06:33 04/09/18 06:33 PT 12.9 SECONDS (9.7-12.2) H 04/08/18 07:42 INR 1.2 04/08/18 07:42 APTT 30 SECONDS (21-34) 04/08/18 07:42 - Constitutional Appears: No Acute Distress - Head Exam Head Exam: ATRAUMATIC, NORMOCEPHALIC - Eye Exam Eye Exam: EOMI, PERRL - Respiratory Exam Respiratory Exam: NORMAL BREATHING PATTERN - Cardiovascular Exam Cardiovascular Exam: REGULAR RHYTHM - GI/Abdominal Exam GI & Abdominal Exam: Soft, Hyperactive Bowel Sounds. absent: Distended, Guarding, Tenderness, Mass, Rebound - Extremities Exam Extremities Exam: Normal Inspection Assessment and Plan (1) Acute colitis Assessment & Plan: Likely infectious. C diff toxin and other stool studies were ordered and pending. Supportive care. Status: Acute (2) Iron deficiency anemia Assessment & Plan: Stool OB pending Status: Acute (3) Abnormal CT scan, colon Assessment & Plan: Work up as above. Status: Acute
--- NOTE | 2018-04-09 14:36 | CP.PCM.PN ---
Subjective - Date & Time of Evaluation Date of Evaluation: 04/09/18 Time of Evaluation: 14:33 - Subjective Subjective: CHIEF COMPLAINTS TODAY : Patient is still coughing wheezing with mild expectoration Generalized weakness ROS. HEENT : N. Resp : No hemoptysis Cardio : No anginal CP, PND, orthopnea, palpitation GI : No abd.pain, n/v ,diarrhea or GI bleeding . 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 Musculoskel : No joint swelling , Derm : No rash Psych : Normal affect. Ext : No swelling ,calf pain PE. Pt. is alert awake in no distress. V.S As noted in the chart Head ,ear nose,throat and eyes : Normal. Neck : Supple with normal carotids. Lungs: Bilateral poor air entry with rhonchis at the bases Heart : S1 & S2 normal with S4. No murmur. Abd : Soft non tender with normal bowel sounds. Neuro : Moves all ext. with no localized deficit. Ext : No edema with intact pulses.Non tender calves Derm : No rashes or decubitus ulcer. LABS/RADIOLOGY: CT of the abdomen shows thickening of the descending wall ASSESSMENT/PLAN : GI W/P PENDING STOOL GUAIC NEG STEROIDS TAPERED H/H DOWN , WBC IS UP( STEROIDS ) Objective - Vital Signs/Intake and Output Vital Signs (last 24 hours): Temp Pulse Resp BP Pulse Ox 98.8 F 92 H 96 H 94/51 L 99 04/09/18 07:25 04/09/18 12:00 04/09/18 07:25 04/09/18 10:03 04/09/18 04:00 Intake and Output: 04/09/18 04/09/18 11:59 23:59 Intake Total 120 500 Balance 120 500 - Medications Medications: Current Medications Albuterol/Ipratropium (Duoneb 3 Mg/0.5 Mg (3 Ml) Ud) 3 ml INH RQ4 PRN PRN Reason: Cough and congestion Albuterol/Ipratropium (Duoneb 3 Mg/0.5 Mg (3 Ml) Ud) 3 ml INH RQ4 [facility] Last Admin: 04/09/18 12:47 Dose: Not Given Aspirin (Ecotrin) 81 mg PO DAILY [facility] Last Admin: 04/09/18 10:04 Dose: 81 mg Ergocalciferol (Drisdol 50,000 Intl Units Cap) 1 cap PO QWK [facility] Famotidine (Pepcid) 20 mg PO BID [facility] Last Admin: 04/09/18 10:04 Dose: 20 mg Furosemide (Lasix) 40 mg IVP DAILY [facility] Last Admin: 04/09/18 10:06 Dose: Not Given Heparin Sodium (Porcine) (Heparin) 5,000 units SC Q12 [facility] Last Admin: 04/09/18 10:06 Dose: 5,000 units Ceftriaxone Sodium 1 gm/ (Sodium Chloride) 100 mls @ 100 mls/hr IVPB DAILY [facility] PRN Reason: Protocol Last Admin: 04/09/18 10:06 Dose: 100 mls/hr Insulin Human Regular (Novolin R) 0 unit SC ACHS [facility] PRN Reason: Protocol Last Admin: 04/09/18 12:32 Dose: 8 u Methylprednisolone (Solu-Medrol) 30 mg IV Q6H [facility] Last Admin: 04/09/18 12:32 Dose: 30 mg Metoprolol Tartrate (Lopressor) 25 mg PO BID [facility] Last Admin: 04/09/18 10:06 Dose: Not Given Repaglinide (Prandin) 2 mg PO DAILY [facility] Last Admin: 04/09/18 10:05 Dose: 2 mg Rosuvastatin Calcium (Crestor) 20 mg PO HS [facility] Last Admin: 04/08/18 21:46 Dose: 20 mg Sacubitril/Valsartan (Entresto 24 Mg-26 Mg) 1 tab PO DAILY [facility] Last Admin: 04/09/18 10:04 Dose: 1 tab Ticagrelor (Brilinta) 90 mg PO BID [facility] Last Admin: 04/09/18 10:04 Dose: 90 mg - Labs Labs: 04/09/18 06:33 04/09/18 06:33 PT 12.9 SECONDS (9.7-12.2) H 04/08/18 07:42 INR 1.2 04/08/18 07:42 APTT 30 SECONDS (21-34) 04/08/18 07:42
--- NOTE | 2018-04-09 23:41 | CP.PCM.PN ---
Subjective - Date & Time of Evaluation Date of Evaluation: 04/09/18 Time of Evaluation: 23:41 - Subjective Subjective: CHIEF COMPLAINTS TODAY : AFEBRILE Patient is still coughing wheezing with mild expectoration Generalized weakness +VE DIARRHOEA ROS. HEENT : N. Resp : No hemoptysis +VE COUGH/+VE WHEEZE Cardio : No anginal CP, PND, orthopnea, palpitation GI : No abd.pain, n/v ,diarrhea or GI bleeding . 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 Musculoskel : No joint swelling , Derm : No rash Psych : Normal affect. Ext : No swelling ,calf pain PE. Pt. is alert awake in no distress. V.S As noted in the chart Head ,ear nose,throat and eyes : Normal. Neck : Supple with normal carotids. Lungs: B/L EXPIRATORY WHEEZE/RHONCHI Heart : S1 & S2 normal with S4. No murmur. Abd : Soft non tender with normal bowel sounds. Neuro : Moves all ext. with no localized deficit. Ext : No edema with intact pulses.Non tender calves Derm : No rashes or decubitus ulcer. LABS/RADIOLOGY: wbc 12.3 H/H 8.0 PLT . 117 cREATININE 1.6/BUN 30 CT of the abdomen shows thickening of the descending wall +VE COLITIS STOOLS -VE OB Objective - Vital Signs/Intake and Output Vital Signs (last 24 hours): Temp Pulse Resp BP Pulse Ox 98.2 F 98 H 20 110/72 100 04/09/18 15:25 04/09/18 20:00 04/09/18 15:25 04/09/18 17:56 04/09/18 15:25 Intake and Output: 04/09/18 04/10/18 18:59 06:59 Intake Total 620 500 Balance 620 500 - Medications Medications: Current Medications Albuterol/Ipratropium (Duoneb 3 Mg/0.5 Mg (3 Ml) Ud) 3 ml INH RQ4 PRN PRN Reason: Cough and congestion Albuterol/Ipratropium (Duoneb 3 Mg/0.5 Mg (3 Ml) Ud) 3 ml INH RQ4 [facility] Last Admin: 04/09/18 23:33 Dose: 3 ml Aspirin (Ecotrin) 81 mg PO DAILY [facility] Last Admin: 04/09/18 10:04 Dose: 81 mg Ergocalciferol (Drisdol 50,000 Intl Units Cap) 1 cap PO QWK [facility] Famotidine (Pepcid) 20 mg PO BID [facility] Last Admin: 04/09/18 17:56 Dose: 20 mg Furosemide (Lasix) 40 mg IVP DAILY [facility] Last Admin: 04/09/18 10:06 Dose: Not Given Heparin Sodium (Porcine) (Heparin) 5,000 units SC Q12 [facility] Last Admin: 04/09/18 21:41 Dose: 5,000 units Ceftriaxone Sodium 1 gm/ (Sodium Chloride) 100 mls @ 100 mls/hr IVPB DAILY [facility] PRN Reason: Protocol Last Admin: 04/09/18 10:06 Dose: 100 mls/hr Insulin Human Regular (Novolin R) 0 unit SC ACHS [facility] PRN Reason: Protocol Last Admin: 04/09/18 21:44 Dose: Not Given Methylprednisolone (Solu-Medrol) 30 mg IV Q6H [facility] Last Admin: 04/09/18 17:56 Dose: 30 mg Metoprolol Tartrate (Lopressor) 25 mg PO BID [facility] Last Admin: 04/09/18 17:56 Dose: 25 mg Repaglinide (Prandin) 2 mg PO DAILY [facility] Last Admin: 04/09/18 10:05 Dose: 2 mg Rosuvastatin Calcium (Crestor) 20 mg PO HS [facility] Last Admin: 04/09/18 21:41 Dose: 20 mg Sacubitril/Valsartan (Entresto 24 Mg-26 Mg) 1 tab PO DAILY [facility] Last Admin: 04/09/18 10:04 Dose: 1 tab Ticagrelor (Brilinta) 90 mg PO BID [facility] Last Admin: 04/09/18 18:46 Dose: 90 mg - Labs Labs: 04/09/18 06:33 04/09/18 06:33 PT 12.9 SECONDS (9.7-12.2) H 04/08/18 07:42 INR 1.2 04/08/18 07:42 APTT 30 SECONDS (21-34) 04/08/18 07:42 Assessment and Plan (1) Chr obstructive pulmonary disease w/ acute lower respiratory infxn Status: Acute (2) Chronic congestive heart failure Status: Acute (3) Anemia Status: Acute (4) Colitis Status: Acute (5) HTN (hypertension) Status: Acute (6) DM type 2 (diabetes mellitus, type 2) Status: Acute - Assessment and Plan (Free Text) Plan: dIARRHEA WORKUP IN PROGRESS. STOOLS FOR C. DIFFICILE TOXIN ORDERED BY GI.-P CONTINUE iv ROCEPHIN 1 G ONCE A DAY 04/07/18. STEROIDS PER PMD. PEPCID 20 MG BY MOUTH TWICE A DAY. GI WORKUP IN ORDER PULMONARY TOILET
[2018-04-10] MEDS: MethylPREDNISolone 40 mg Vial IV SCH ×4 (05:27→23:39)
[2018-04-10] MEDS: Albuterol-Ipratrop 3 mg / 0.5 (3 ml) UD INH SCH ×6 (05:38→23:32)
[2018-04-10] MEDS: (Novolin R) Insulin Human Regular 100 units/ml vial SC SCH ×4 (07:45→21:53)
[2018-04-10 08:15] LABS: IRON 24 ug/dL (37-170)
[2018-04-10 08:21] LABS: ALB/GLOB RATIO 1.3 (1.0-2.1); ALBUMIN 3.2 g/dL (3.5-5.0); CALCIUM 8.5 mg/dl (8.6-10.4)
[2018-04-10 08:25] LABS: % IRON SATURATION 7 (20-55); TOTAL IRON BINDING CAPACITY 355 ug/dL (250-450)
[2018-04-10 08:54] LABS: BASO % 0.4 % (0.0-2.0); HEMOGLOBIN 8.4 g/dL (11.0-16.0); LYMPH # 0.2 K/uL (1.0-4.3); LYMPH % 1.6 % (20.0-40.0); MEAN CELL VOLUME 77.5 fL (81.0-99.0); MEAN CORPUSCULAR HEMOGLOBIN 25.3 pg (27.0-31.0); MEAN CORPUSCULAR HGB CONC 32.7 g/dL (33.0-37.0); MEAN PLATELET VOLUME 10.8 fL (7.2-11.7); MONO # 0.4 K/uL (0.0-0.8); NEUT # 10.1 K/uL (1.8-7.0); NRBC % 0.3 % (0.0-2.0); PLATELET COUNT 112 K/uL (130-400); RED CELL DISTRIBUTION WIDTH 21.1 % (11.5-14.5); WHITE BLOOD COUNT 10.8 K/uL (4.8-10.8)
[2018-04-10 09:23] LABS: ANISOCYTOSIS MARKED; LYMPHOCYTE 2 % (20-40); MONOCYTE 3 % (0-10); NEUTROPHIL 95 % (50-75); PLATELET ESTIMATE SLIGHTLY DECREASED (NORMAL); POIKILOCYTOSIS SLIGHT; TOTAL CELLS COUNTED 100
[2018-04-10 09:24] LABS: HYPOCHROMIC SLIGHT; MICROCYTOSIS SLIGHT; OVALOCYTES SLIGHT; POLYCHROMIC SLIGHT; SCHISTOCYTES SLIGHT; TARGET CELLS SLIGHT
[2018-04-10] MEDS: Sacubitril/Valsartan 24-26mg Tab PO SCH (09:40)
--- NOTE | 2018-04-10 10:33 | CP.PCM.PN ---
Subjective - Date & Time of Evaluation Date of Evaluation: 04/10/18 Time of Evaluation: 10:30 - Subjective Subjective: COVERING DR [place]/FRANK Reports less bowel frequency and no pain, +cough with sputum Stools for OB-x1. Stool for Cdiff and Culture not yet reported. Objective - Vital Signs/Intake and Output Vital Signs (last 24 hours): Temp Pulse Resp BP Pulse Ox 98.0 F 91 H 18 115/57 L 100 04/10/18 07:30 04/10/18 07:30 04/10/18 07:30 04/10/18 09:40 04/10/18 07:30 Intake and Output: 04/10/18 04/10/18 06:59 18:59 Intake Total 500 Balance 500 - Medications Medications: Current Medications Albuterol/Ipratropium (Duoneb 3 Mg/0.5 Mg (3 Ml) Ud) 3 ml INH RQ4 PRN PRN Reason: Cough and congestion Albuterol/Ipratropium (Duoneb 3 Mg/0.5 Mg (3 Ml) Ud) 3 ml INH RQ4 [facility] Last Admin: 04/10/18 08:18 Dose: 3 ml Aspirin (Ecotrin) 81 mg PO DAILY [facility] Last Admin: 04/10/18 09:40 Dose: 81 mg Ergocalciferol (Drisdol 50,000 Intl Units Cap) 1 cap PO QWK [facility] Famotidine (Pepcid) 20 mg PO BID [facility] Last Admin: 04/10/18 09:40 Dose: 20 mg Furosemide (Lasix) 40 mg IVP DAILY [facility] Last Admin: 04/10/18 09:39 Dose: 40 mg Heparin Sodium (Porcine) (Heparin) 5,000 units SC Q12 [facility] Last Admin: 04/10/18 09:41 Dose: 5,000 units Ceftriaxone Sodium 1 gm/ (Sodium Chloride) 100 mls @ 100 mls/hr IVPB DAILY [facility] PRN Reason: Protocol Last Admin: 04/10/18 09:41 Dose: 100 mls/hr Insulin Human Regular (Novolin R) 0 unit SC ACHS [facility] PRN Reason: Protocol Last Admin: 04/10/18 07:45 Dose: 4 u Methylprednisolone (Solu-Medrol) 30 mg IV Q6H [facility] Last Admin: 04/10/18 05:27 Dose: 30 mg Metoprolol Tartrate (Lopressor) 25 mg PO BID [facility] Last Admin: 04/10/18 09:40 Dose: 25 mg Repaglinide (Prandin) 2 mg PO DAILY [facility] Last Admin: 04/10/18 09:41 Dose: 2 mg Rosuvastatin Calcium (Crestor) 20 mg PO HS [facility] Last Admin: 04/09/18 21:41 Dose: 20 mg Sacubitril/Valsartan (Entresto 24 Mg-26 Mg) 1 tab PO DAILY [facility] Last Admin: 04/10/18 09:40 Dose: 1 tab Ticagrelor (Brilinta) 90 mg PO BID [facility] Last Admin: 04/10/18 09:40 Dose: 90 mg - Labs Labs: 04/10/18 08:46 04/10/18 07:46 PT 12.9 SECONDS (9.7-12.2) H 04/08/18 07:42 INR 1.2 04/08/18 07:42 APTT 30 SECONDS (21-34) 04/08/18 07:42 - Constitutional Appears: No Acute Distress - Head Exam Head Exam: ATRAUMATIC, NORMOCEPHALIC - Respiratory Exam Respiratory Exam: Rhonchi, NORMAL BREATHING PATTERN - Cardiovascular Exam Cardiovascular Exam: REGULAR RHYTHM, +S1 - GI/Abdominal Exam GI & Abdominal Exam: Soft, Normal Bowel Sounds. absent: Distended, Guarding, Tenderness, Mass, Rebound - Extremities Exam Extremities Exam: Normal Inspection Assessment and Plan (1) Acute colitis Assessment & Plan: Clinically improving. Awaiting stool studies and will reorder. On abx for Pulmonary infection. Status: Acute (2) Iron deficiency anemia Assessment & Plan: Stool OB negative x 1. Status: Acute (3) Abnormal CT scan, colon Assessment & Plan: as above. Colonoscopy when patient more stable or as outpatient. Status: Acute
--- NOTE | 2018-04-10 14:23 | CP.PCM.PN ---
Subjective - Date & Time of Evaluation Date of Evaluation: 04/10/18 Time of Evaluation: 14:23 - Subjective Subjective: CHIEF COMPLAINTS TODAY : AFEBRILE Patient is still coughing. LESS WHEEZE Generalized weakness DENIES ABD. PAIN/OR FURTHER LOOSE STOOLS ROS. HEENT : N. Resp : No hemoptysis +VE COUGH/+VE WHEEZE Cardio : No anginal CP, PND, orthopnea, palpitation GI : No abd.pain, n/v ,diarrhea or GI bleeding . 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 Musculoskel : No joint swelling , Derm : No rash Psych : Normal affect. Ext : No swelling ,calf pain PE. Pt. is alert awake in no distress. V.S As noted in the chart Head ,ear nose,throat and eyes : Normal. Neck : Supple with normal carotids. Lungs: B/L EXPIRATORY WHEEZE/RHONCHI Heart : S1 & S2 normal with S4. No murmur. Abd : Soft non tender with normal bowel sounds. Neuro : Moves all ext. with no localized deficit. Ext : No edema with intact pulses.Non tender calves Derm : No rashes or decubitus ulcer. LABS/RADIOLOGY: [facility] URINE AG -VE MYCOPLASMA IGM -VE CT of the abdomen shows thickening of the descending wall +VE COLITIS STOOLS -VE OB Objective - Vital Signs/Intake and Output Vital Signs (last 24 hours): Temp Pulse Resp BP Pulse Ox 98.0 F 91 H 18 115/57 L 100 04/10/18 07:30 04/10/18 07:30 04/10/18 07:30 04/10/18 09:40 04/10/18 07:30 Intake and Output: 04/10/18 04/10/18 06:59 18:59 Intake Total 500 Balance 500 - Medications Medications: Current Medications Albuterol/Ipratropium (Duoneb 3 Mg/0.5 Mg (3 Ml) Ud) 3 ml INH RQ4 PRN PRN Reason: Cough and congestion Albuterol/Ipratropium (Duoneb 3 Mg/0.5 Mg (3 Ml) Ud) 3 ml INH RQ4 [facility] Last Admin: 04/10/18 12:47 Dose: Not Given Aspirin (Ecotrin) 81 mg PO DAILY [facility] Last Admin: 04/10/18 09:40 Dose: 81 mg Ergocalciferol (Drisdol 50,000 Intl Units Cap) 1 cap PO QWK [facility] Famotidine (Pepcid) 20 mg PO BID [facility] Last Admin: 04/10/18 09:40 Dose: 20 mg Furosemide (Lasix) 40 mg IVP DAILY [facility] Last Admin: 04/10/18 09:39 Dose: 40 mg Heparin Sodium (Porcine) (Heparin) 5,000 units SC Q12 [facility] Last Admin: 04/10/18 09:41 Dose: 5,000 units Ceftriaxone Sodium 1 gm/ (Sodium Chloride) 100 mls @ 100 mls/hr IVPB DAILY [facility] PRN Reason: Protocol Last Admin: 04/10/18 09:41 Dose: 100 mls/hr Insulin Human Regular (Novolin R) 0 unit SC ACHS [facility] PRN Reason: Protocol Last Admin: 04/10/18 12:22 Dose: 8 u Methylprednisolone (Solu-Medrol) 30 mg IV Q6H [facility] Last Admin: 04/10/18 12:22 Dose: 30 mg Metoprolol Tartrate (Lopressor) 25 mg PO BID [facility] Last Admin: 04/10/18 09:40 Dose: 25 mg Repaglinide (Prandin) 2 mg PO DAILY [facility] Last Admin: 04/10/18 09:41 Dose: 2 mg Rosuvastatin Calcium (Crestor) 20 mg PO HS [facility] Last Admin: 04/09/18 21:41 Dose: 20 mg Sacubitril/Valsartan (Entresto 24 Mg-26 Mg) 1 tab PO DAILY [facility] Last Admin: 04/10/18 09:40 Dose: 1 tab Ticagrelor (Brilinta) 90 mg PO BID [facility] Last Admin: 04/10/18 09:40 Dose: 90 mg - Labs Labs: 04/10/18 08:46 04/10/18 07:46 PT 12.9 SECONDS (9.7-12.2) H 04/08/18 07:42 INR 1.2 04/08/18 07:42 APTT 30 SECONDS (21-34) 04/08/18 07:42 Assessment and Plan (1) Chr obstructive pulmonary disease w/ acute lower respiratory infxn Status: Acute (2) Chronic congestive heart failure Status: Acute (3) Anemia Status: Acute (4) Colitis Status: Acute (5) HTN (hypertension) Status: Acute (6) DM type 2 (diabetes mellitus, type 2) Status: Acute - Assessment and Plan (Free Text) Plan: PLAN; STOOLS FOR C. DIFFICILE TOXIN ORDERED BY GI.-P CONTINUE iv ROCEPHIN 1 G ONCE A DAY 04/07/18. STEROIDS PER PMD. PEPCID 20 MG BY MOUTH TWICE A DAY. GI WORKUP IN ORDER PULMONARY TOILET
--- NOTE | 2018-04-10 16:01 | CP.PCM.PN ---
Subjective - Date & Time of Evaluation Date of Evaluation: 04/10/18 Time of Evaluation: 16:00 - Subjective Subjective: CHIEF COMPLAINTS TODAY : Patient is still coughing wheezing with mild expectoration Generalized weakness ROS. HEENT : N. Resp : No hemoptysis Cardio : No anginal CP, PND, orthopnea, palpitation GI : No abd.pain, n/v ,diarrhea or GI bleeding . 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 Musculoskel : No joint swelling , Derm : No rash Psych : Normal affect. Ext : No swelling ,calf pain PE. Pt. is alert awake in no distress. V.S As noted in the chart Head ,ear nose,throat and eyes : Normal. Neck : Supple with normal carotids. Lungs: Bilateral poor air entry with rhonchis at the bases Heart : S1 & S2 normal with S4. No murmur. Abd : Soft non tender with normal bowel sounds. Neuro : Moves all ext. with no localized deficit. Ext : No edema with intact pulses.Non tender calves Derm : No rashes or decubitus ulcer. LABS/RADIOLOGY: CT of the abdomen shows thickening of the descending wall ASSESSMENT/PLAN : GI W/P PENDING STOOL GUAIC NEG STEROIDS TAPERED HG IS 8.4 Objective - Vital Signs/Intake and Output Vital Signs (last 24 hours): Temp Pulse Resp BP Pulse Ox 98.0 F 100 H 18 115/57 L 100 04/10/18 07:30 04/10/18 12:30 04/10/18 07:30 04/10/18 09:40 04/10/18 07:30 Intake and Output: 04/10/18 04/10/18 11:59 23:59 Intake Total 500 Balance 500 - Medications Medications: Current Medications Albuterol/Ipratropium (Duoneb 3 Mg/0.5 Mg (3 Ml) Ud) 3 ml INH RQ4 PRN PRN Reason: Cough and congestion Albuterol/Ipratropium (Duoneb 3 Mg/0.5 Mg (3 Ml) Ud) 3 ml INH RQ4 [facility] Last Admin: 04/10/18 12:47 Dose: Not Given Aspirin (Ecotrin) 81 mg PO DAILY [facility] Last Admin: 04/10/18 09:40 Dose: 81 mg Ergocalciferol (Drisdol 50,000 Intl Units Cap) 1 cap PO QWK [facility] Famotidine (Pepcid) 20 mg PO BID [facility] Last Admin: 04/10/18 09:40 Dose: 20 mg Furosemide (Lasix) 40 mg IVP DAILY [facility] Last Admin: 04/10/18 09:39 Dose: 40 mg Heparin Sodium (Porcine) (Heparin) 5,000 units SC Q12 [facility] Last Admin: 04/10/18 09:41 Dose: 5,000 units Ceftriaxone Sodium 1 gm/ (Sodium Chloride) 100 mls @ 100 mls/hr IVPB DAILY [facility] PRN Reason: Protocol Last Admin: 04/10/18 09:41 Dose: 100 mls/hr Insulin Human Regular (Novolin R) 0 unit SC ACHS [facility] PRN Reason: Protocol Last Admin: 04/10/18 12:22 Dose: 8 u Methylprednisolone (Solu-Medrol) 30 mg IV Q6H [facility] Last Admin: 04/10/18 12:22 Dose: 30 mg Metoprolol Tartrate (Lopressor) 25 mg PO BID [facility] Last Admin: 04/10/18 09:40 Dose: 25 mg Repaglinide (Prandin) 2 mg PO DAILY [facility] Last Admin: 04/10/18 09:41 Dose: 2 mg Rosuvastatin Calcium (Crestor) 20 mg PO HS [facility] Last Admin: 04/09/18 21:41 Dose: 20 mg Sacubitril/Valsartan (Entresto 24 Mg-26 Mg) 1 tab PO DAILY [facility] Last Admin: 04/10/18 09:40 Dose: 1 tab Ticagrelor (Brilinta) 90 mg PO BID [facility] Last Admin: 04/10/18 09:40 Dose: 90 mg - Labs Labs: 04/10/18 08:46 04/10/18 07:46 PT 12.9 SECONDS (9.7-12.2) H 04/08/18 07:42 INR 1.2 04/08/18 07:42 APTT 30 SECONDS (21-34) 04/08/18 07:42
[2018-04-11] MEDS: Albuterol-Ipratrop 3 mg / 0.5 (3 ml) UD INH SCH ×6 (03:10→23:54)
[2018-04-11] MEDS: MethylPREDNISolone 40 mg Vial IV SCH ×3 (05:16→21:46)
[2018-04-11] MEDS: (Novolin R) Insulin Human Regular 100 units/ml vial SC SCH ×4 (07:52→21:45)
[2018-04-11 08:32] LABS: BASO % 0.1 % (0.0-2.0); HEMOGLOBIN 8.7 g/dL (11.0-16.0); LYMPH # 0.2 K/uL (1.0-4.3); LYMPH % 2.3 % (20.0-40.0); MEAN CELL VOLUME 76.2 fL (81.0-99.0); MEAN CORPUSCULAR HEMOGLOBIN 25.1 pg (27.0-31.0); MEAN CORPUSCULAR HGB CONC 32.9 g/dL (33.0-37.0); MEAN PLATELET VOLUME 10.8 fL (7.2-11.7); MONO # 0.3 K/uL (0.0-0.8); NEUT # 8.4 K/uL (1.8-7.0); NEUT % 94.6 % (50.0-75.0); PLATELET COUNT 129 K/uL (130-400); RBC 3.48 Mil/uL (3.80-5.20); RED CELL DISTRIBUTION WIDTH 20.3 % (11.5-14.5); WHITE BLOOD COUNT 8.9 K/uL (4.8-10.8)
[2018-04-11 08:36] LABS: ALB/GLOB RATIO 1.2 (1.0-2.1); CALCIUM 8.1 mg/dl (8.6-10.4)
[2018-04-11] MEDS: Sacubitril/Valsartan 24-26mg Tab PO SCH (09:24)
--- NOTE | 2018-04-11 09:38 | CP.PCM.PN ---
Subjective - Date & Time of Evaluation Date of Evaluation: 04/11/18 Time of Evaluation: 09:36 - Subjective Subjective: f/u colitis Soft BMs, no bleeding or abdominal pain + back pain and cough/dyspnea Stool CDiff not resulted Objective - Vital Signs/Intake and Output Vital Signs (last 24 hours): Temp Pulse Resp BP Pulse Ox 97.7 F 89 18 92/52 L 100 04/11/18 07:00 04/11/18 09:23 04/11/18 07:00 04/11/18 09:25 04/11/18 07:00 Intake and Output: 04/11/18 04/11/18 06:59 18:59 Intake Total 240 Balance 240 - Medications Medications: Current Medications Albuterol/Ipratropium (Duoneb 3 Mg/0.5 Mg (3 Ml) Ud) 3 ml INH RQ4 PRN PRN Reason: Cough and congestion Albuterol/Ipratropium (Duoneb 3 Mg/0.5 Mg (3 Ml) Ud) 3 ml INH RQ4 [facility] Last Admin: 04/11/18 03:10 Dose: Not Given Aspirin (Ecotrin) 81 mg PO DAILY [facility] Last Admin: 04/11/18 09:24 Dose: 81 mg Ergocalciferol (Drisdol 50,000 Intl Units Cap) 1 cap PO QWK [facility] Famotidine (Pepcid) 20 mg PO BID [facility] Last Admin: 04/11/18 09:24 Dose: 20 mg Furosemide (Lasix) 40 mg IVP DAILY [facility] Last Admin: 04/11/18 09:25 Dose: Not Given Heparin Sodium (Porcine) (Heparin) 5,000 units SC Q12 [facility] Last Admin: 04/11/18 09:25 Dose: 5,000 units Ceftriaxone Sodium 1 gm/ (Sodium Chloride) 100 mls @ 100 mls/hr IVPB DAILY [facility] PRN Reason: Protocol Last Admin: 04/11/18 09:24 Dose: 100 mls/hr Insulin Human Regular (Novolin R) 0 unit SC ACHS [facility] PRN Reason: Protocol Last Admin: 04/11/18 07:52 Dose: 4 u Methylprednisolone (Solu-Medrol) 30 mg IV Q6H [facility] Last Admin: 04/11/18 05:16 Dose: 30 mg Metoprolol Tartrate (Lopressor) 25 mg PO BID [facility] Last Admin: 04/11/18 09:25 Dose: Not Given Repaglinide (Prandin) 2 mg PO DAILY [facility] Last Admin: 04/11/18 09:25 Dose: 2 mg Rosuvastatin Calcium (Crestor) 20 mg PO HS [facility] Last Admin: 04/10/18 21:51 Dose: 20 mg Sacubitril/Valsartan (Entresto 24 Mg-26 Mg) 1 tab PO DAILY [facility] Last Admin: 04/11/18 09:24 Dose: 1 tab Ticagrelor (Brilinta) 90 mg PO BID [facility] Last Admin: 04/11/18 09:24 Dose: 90 mg - Labs Labs: 04/11/18 08:16 04/11/18 08:16 PT 12.9 SECONDS (9.7-12.2) H 04/08/18 07:42 INR 1.2 04/08/18 07:42 APTT 30 SECONDS (21-34) 04/08/18 07:42 - Constitutional Appears: No Acute Distress, Younger Than Stated Age - Head Exam Head Exam: NORMOCEPHALIC - Eye Exam Eye Exam: absent: Scleral icterus - Respiratory Exam Respiratory Exam: Clear to Ausculation Bilateral - Cardiovascular Exam Cardiovascular Exam: REGULAR RHYTHM - GI/Abdominal Exam GI & Abdominal Exam: Soft. absent: Tenderness Assessment and Plan (1) Anemia Assessment & Plan: chronic microcytic anemia Stool OB negative but Iron deficiency present GI workup on hold until pt more stable pulmonary valdes. BNP is markedly elevated and pt is dyspneic Status: Acute (2) CHF exacerbation Status: Acute (3) Chronic congestive heart failure Status: Acute (4) Colitis Assessment & Plan: suspect infectious . Clinically improving. Await stool CDiff results, ordered 3 days ago Status: Acute (5) CAD (coronary artery disease) Status: Acute (6) Cardiomyopathy Status: Acute
[2018-04-11 10:20] LABS: ANISOCYTOSIS SLIGHT; HYPOCHROMIC SLIGHT; LYMPHOCYTE 2 % (20-40); MONOCYTE 2 % (0-10); NEUTROPHIL 96 % (50-75); PLATELET ESTIMATE SLIGHTLY DECREASED (NORMAL); POIKILOCYTOSIS SLIGHT; TOTAL CELLS COUNTED 100
[2018-04-11 10:21] LABS: TARGET CELLS SLIGHT
[2018-04-11 10:22] LABS: MICROCYTOSIS SLIGHT
[2018-04-11 10:24] LABS: OVALOCYTES SLIGHT
[2018-04-11 10:25] LABS: TEARDROP CELLS SLIGHT
--- NOTE | 2018-04-11 11:39 | CARD ---
APPROVED REPORT Date of service: 04/07/2018 EKG Measurement Heart [id number] <Conclusion> Sinus tachycardia with premature atrial complexes Left bundle branch block Abnormal ECG
--- NOTE | 2018-04-11 14:02 | CP.PCM.PN ---
Subjective - Date & Time of Evaluation Date of Evaluation: 04/11/18 Time of Evaluation: 14:00 - Subjective Subjective: CHIEF COMPLAINTS TODAY : Patient is still coughing wheezing with mild expectoration Generalized weakness ROS. HEENT : N. Resp : No hemoptysis Cardio : No anginal CP, PND, orthopnea, palpitation GI : No abd.pain, n/v ,diarrhea or GI bleeding . 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 Musculoskel : No joint swelling , Derm : No rash Psych : Normal affect. Ext : No swelling ,calf pain PE. Pt. is alert awake in no distress. V.S As noted in the chart Head ,ear nose,throat and eyes : Normal. Neck : Supple with normal carotids. Lungs: Bilateral poor air entry with rhonchis at the bases Heart : S1 & S2 normal with S4. No murmur. Abd : Soft non tender with normal bowel sounds. Neuro : Moves all ext. with no localized deficit. Ext : No edema with intact pulses.Non tender calves Derm : No rashes or decubitus ulcer. LABS/RADIOLOGY: CT of the abdomen shows thickening of the descending wall ASSESSMENT/PLAN : repeat hemoglobin is 8.7 g/dL. Both iron and TIBC is low, ferritin is normal. Will give 3 days of IV iron. Decrease steroids. C. difficile still pending Objective - Vital Signs/Intake and Output Vital Signs (last 24 hours): Temp Pulse Resp BP Pulse Ox 97.7 F 105 H 18 92/52 L 100 04/11/18 07:00 04/11/18 12:37 04/11/18 07:00 04/11/18 09:25 04/11/18 07:00 Intake and Output: 04/11/18 04/11/18 11:59 23:59 Intake Total 240 Balance 240 - Medications Medications: Current Medications Albuterol/Ipratropium (Duoneb 3 Mg/0.5 Mg (3 Ml) Ud) 3 ml INH RQ4 PRN PRN Reason: Cough and congestion Albuterol/Ipratropium (Duoneb 3 Mg/0.5 Mg (3 Ml) Ud) 3 ml INH RQ4 [facility] Last Admin: 04/11/18 13:13 Dose: 3 ml Aspirin (Ecotrin) 81 mg PO DAILY [facility] Last Admin: 04/11/18 09:24 Dose: 81 mg Ergocalciferol (Drisdol 50,000 Intl Units Cap) 1 cap PO QWK [facility] Famotidine (Pepcid) 20 mg PO BID [facility] Last Admin: 04/11/18 09:24 Dose: 20 mg Furosemide (Lasix) 40 mg IVP DAILY [facility] Last Admin: 04/11/18 09:25 Dose: Not Given Ceftriaxone Sodium 1 gm/ (Sodium Chloride) 100 mls @ 100 mls/hr IVPB DAILY [facility] PRN Reason: Protocol Last Admin: 04/11/18 09:24 Dose: 100 mls/hr Insulin Human Regular (Novolin R) 0 unit SC ACHS [facility] PRN Reason: Protocol Last Admin: 04/11/18 12:26 Dose: 6 u Methylprednisolone (Solu-Medrol) 30 mg IV Q6H [facility] Last Admin: 04/11/18 12:27 Dose: 30 mg Metoprolol Tartrate (Lopressor) 25 mg PO BID [facility] Last Admin: 04/11/18 09:25 Dose: Not Given Repaglinide (Prandin) 2 mg PO DAILY [facility] Last Admin: 04/11/18 09:25 Dose: 2 mg Rosuvastatin Calcium (Crestor) 20 mg PO HS [facility] Last Admin: 04/10/18 21:51 Dose: 20 mg Sacubitril/Valsartan (Entresto 24 Mg-26 Mg) 1 tab PO DAILY [facility] Last Admin: 04/11/18 09:24 Dose: 1 tab Ticagrelor (Brilinta) 90 mg PO BID [facility] Last Admin: 04/11/18 09:24 Dose: 90 mg - Labs Labs: 04/11/18 08:16 04/11/18 08:16 PT 12.9 SECONDS (9.7-12.2) H 04/08/18 07:42 INR 1.2 04/08/18 07:42 APTT 30 SECONDS (21-34) 04/08/18 07:42
--- NOTE | 2018-04-11 14:14 | CP.PCM.PN ---
Subjective - Date & Time of Evaluation Date of Evaluation: 04/11/18 Time of Evaluation: 14:14 - Subjective Subjective: CHIEF COMPLAINTS TODAY : AFEBRILE Patient is still coughing. STILL WHEEZING Generalized weakness ! ON IV IRON INFUSION DENIES ABD. PAIN. HAS SOFT STOOLS ROS. HEENT : N. Resp : No hemoptysis +VE COUGH/+VE WHEEZE Cardio : No anginal CP, PND, orthopnea, palpitation GI : No abd.pain, n/v ,diarrhea or GI bleeding . 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 Musculoskel : No joint swelling , Derm : No rash Psych : Normal affect. Ext : No swelling ,calf pain PE. Pt. is alert awake in no distress. V.S As noted in the chart Head ,ear nose,throat and eyes : Normal. Neck : Supple with normal carotids. Lungs: B/L EXPIRATORY WHEEZE/RHONCHI Heart : S1 & S2 normal with S4. No murmur. Abd : Soft non tender with normal bowel sounds. Neuro : Moves all ext. with no localized deficit. Ext : No edema with intact pulses.Non tender calves Derm : No rashes or decubitus ulcer. LABS/RADIOLOGY: REVIEWED [facility] URINE AG -VE MYCOPLASMA IGM -VE CT of the abdomen shows thickening of the descending wall +VE COLITIS STOOLS -VE OB Objective - Vital Signs/Intake and Output Vital Signs (last 24 hours): Temp Pulse Resp BP Pulse Ox 97.7 F 105 H 18 92/52 L 100 04/11/18 07:00 04/11/18 12:37 04/11/18 07:00 04/11/18 09:25 04/11/18 07:00 Intake and Output: 04/11/18 04/11/18 06:59 18:59 Intake Total 240 500 Balance 240 500 - Medications Medications: Current Medications Albuterol/Ipratropium (Duoneb 3 Mg/0.5 Mg (3 Ml) Ud) 3 ml INH RQ4 PRN PRN Reason: Cough and congestion Albuterol/Ipratropium (Duoneb 3 Mg/0.5 Mg (3 Ml) Ud) 3 ml INH RQ4 [facility] Last Admin: 04/11/18 13:13 Dose: 3 ml Aspirin (Ecotrin) 81 mg PO DAILY [facility] Last Admin: 04/11/18 09:24 Dose: 81 mg Ergocalciferol (Drisdol 50,000 Intl Units Cap) 1 cap PO QWK [facility] Famotidine (Pepcid) 20 mg PO BID [facility] Last Admin: 04/11/18 09:24 Dose: 20 mg Ferric Sodium Gluconate Complex (Ferrlecit) 125 mg IVPB DAILY [facility] Stop: 04/19/18 14:16 Furosemide (Lasix) 40 mg IVP DAILY [facility] Last Admin: 04/11/18 09:25 Dose: Not Given Ceftriaxone Sodium 1 gm/ (Sodium Chloride) 100 mls @ 100 mls/hr IVPB DAILY [facility] PRN Reason: Protocol Last Admin: 04/11/18 09:24 Dose: 100 mls/hr Insulin Human Regular (Novolin R) 0 unit SC ACHS [facility] PRN Reason: Protocol Last Admin: 04/11/18 12:26 Dose: 6 u Methylprednisolone (Solu-Medrol) 30 mg IV Q12 [facility] Metoprolol Tartrate (Lopressor) 25 mg PO BID [facility] Last Admin: 04/11/18 09:25 Dose: Not Given Repaglinide (Prandin) 2 mg PO DAILY [facility] Last Admin: 04/11/18 09:25 Dose: 2 mg Rosuvastatin Calcium (Crestor) 20 mg PO HS [facility] Last Admin: 04/10/18 21:51 Dose: 20 mg Sacubitril/Valsartan (Entresto 24 Mg-26 Mg) 1 tab PO DAILY [facility] Last Admin: 04/11/18 09:24 Dose: 1 tab Ticagrelor (Brilinta) 90 mg PO BID [facility] Last Admin: 04/11/18 09:24 Dose: 90 mg - Labs Labs: 04/11/18 08:16 04/11/18 08:16 PT 12.9 SECONDS (9.7-12.2) H 04/08/18 07:42 INR 1.2 04/08/18 07:42 APTT 30 SECONDS (21-34) 04/08/18 07:42 Assessment and Plan (1) Chr obstructive pulmonary disease w/ acute lower respiratory infxn Status: Acute (2) Chronic congestive heart failure Status: Acute (3) Anemia Status: Acute (4) Colitis Status: Acute (5) HTN (hypertension) Status: Acute (6) DM type 2 (diabetes mellitus, type 2) Status: Acute - Assessment and Plan (Free Text) Plan: ON FERRICELET IV INFUSION DAILY 04/11/18 CONTINUE iv ROCEPHIN 1 G ONCE A DAY 04/07/18. STEROIDS PER PMD. PEPCID 20 MG BY MOUTH TWICE A DAY. GI WORKUP OPD TILL PT MORE STABLE. STOOL C.DIFFICILE -P. PULMONARY TOILET
[2018-04-11] MEDS ORDERED: Ferric Sodium Gluconat Complex 62.5 mg/5 ml Vial IVPB SCH (14:15)
[2018-04-11] MEDS ORDERED: MethylPREDNISolone 40 mg Vial IV SCH (14:15)
[2018-04-11] MEDS: Ferric Sodium Gluconat Complex 125 MG in Sodium Chloride 0.9% 100 ML IVPB SCH (15:02)
--- NOTE | 2018-04-11 18:53 | CARD ---
APPROVED REPORT Date of service: 04/08/2018 EKG Measurement Heart [id number] <Conclusion> Sinus rhythm with premature supraventricular complexes and with occasional premature ventricular complexes IVCD Left bundle branch block type. Abnormal ECG
[2018-04-12] MEDS: Albuterol-Ipratrop 3 mg / 0.5 (3 ml) UD INH SCH ×6 (04:45→23:38)
[2018-04-12] MEDS: (Novolin R) Insulin Human Regular 100 units/ml vial SC SCH ×4 (08:19→22:19)
[2018-04-12] MEDS: MethylPREDNISolone 40 mg Vial IV SCH ×2 (09:41→22:37)
[2018-04-12] MEDS: Sacubitril/Valsartan 24-26mg Tab PO SCH (09:43)
[2018-04-12] MEDS: Ferric Sodium Gluconat Complex 125 MG in Sodium Chloride 0.9% 100 ML IVPB SCH (12:57)
--- NOTE | 2018-04-12 13:51 | CP.PCM.PN ---
Subjective - Date & Time of Evaluation Date of Evaluation: 04/12/18 Time of Evaluation: 13:50 - Subjective Subjective: CHIEF COMPLAINTS TODAY : Patient is still coughing wheezing with mild expectoration Generalized weakness ROS. HEENT : N. Resp : No hemoptysis Cardio : No anginal CP, PND, orthopnea, palpitation GI : No abd.pain, n/v ,diarrhea or GI bleeding . 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 Musculoskel : No joint swelling , Derm : No rash Psych : Normal affect. Ext : No swelling ,calf pain PE. Pt. is alert awake in no distress. V.S As noted in the chart Head ,ear nose,throat and eyes : Normal. Neck : Supple with normal carotids. Lungs: Bilateral poor air entry with rhonchis at the bases Heart : S1 & S2 normal with S4. No murmur. Abd : Soft non tender with normal bowel sounds. Neuro : Moves all ext. with no localized deficit. Ext : No edema with intact pulses.Non tender calves Derm : No rashes or decubitus ulcer. LABS/RADIOLOGY: CT of the abdomen shows thickening of the descending wall ASSESSMENT/PLAN : on weaning of the steroid patient became more short of breath with wheezing, steroid has now increased to every 8 hours. Continue IV iron therapy. Objective - Vital Signs/Intake and Output Vital Signs (last 24 hours): Temp Pulse Resp BP Pulse Ox 98.0 F 103 H 18 119/76 100 04/12/18 07:00 04/12/18 07:06 04/12/18 07:00 04/12/18 09:41 04/12/18 07:00 Intake and Output: 04/12/18 04/12/18 11:59 23:59 Intake Total 100 Balance 100 - Medications Medications: Current Medications Albuterol/Ipratropium (Duoneb 3 Mg/0.5 Mg (3 Ml) Ud) 3 ml INH RQ4 PRN PRN Reason: Cough and congestion Albuterol/Ipratropium (Duoneb 3 Mg/0.5 Mg (3 Ml) Ud) 3 ml INH RQ4 [facility] Last Admin: 04/12/18 11:48 Dose: 3 ml Aspirin (Ecotrin) 81 mg PO DAILY [facility] Last Admin: 04/12/18 09:41 Dose: 81 mg Ergocalciferol (Drisdol 50,000 Intl Units Cap) 1 cap PO QWK [facility] Famotidine (Pepcid) 20 mg PO BID [facility] Last Admin: 04/12/18 09:41 Dose: 20 mg Furosemide (Lasix) 40 mg IVP DAILY [facility] Last Admin: 04/12/18 09:41 Dose: 40 mg Ceftriaxone Sodium 1 gm/ (Sodium Chloride) 100 mls @ 100 mls/hr IVPB DAILY [facility]; Protocol Last Admin: 04/12/18 10:05 Dose: 100 mls/hr Ferric Sodium Gluconate Complex 125 mg/ Sodium Chloride 110 mls @ 110 mls/hr IVPB DAILY [facility] Stop: 04/19/18 15:01 Last Admin: 04/12/18 12:57 Dose: Not Given Insulin Human Regular (Novolin R) 0 unit SC ACHS [facility]; Protocol Last Admin: 04/12/18 12:58 Dose: Not Given Methylprednisolone (Solu-Medrol) 30 mg IV Q12 [facility] Last Admin: 04/12/18 09:41 Dose: 30 mg Metoprolol Tartrate (Lopressor) 25 mg PO BID [facility] Last Admin: 04/12/18 09:41 Dose: 25 mg Repaglinide (Prandin) 2 mg PO DAILY [facility] Last Admin: 04/12/18 09:58 Dose: 2 mg Rosuvastatin Calcium (Crestor) 20 mg PO HS [facility] Last Admin: 04/11/18 21:45 Dose: 20 mg Sacubitril/Valsartan (Entresto 24 Mg-26 Mg) 1 tab PO DAILY [facility] Last Admin: 04/12/18 09:43 Dose: 1 tab Ticagrelor (Brilinta) 90 mg PO BID [facility] Last Admin: 04/12/18 09:58 Dose: 90 mg - Labs Labs: 04/11/18 08:16 04/11/18 08:16 PT 12.9 SECONDS (9.7-12.2) H 04/08/18 07:42 INR 1.2 04/08/18 07:42 APTT 30 SECONDS (21-34) 04/08/18 07:42
--- NOTE | 2018-04-12 20:25 | CP.PCM.PN ---
Subjective - Date & Time of Evaluation Date of Evaluation: 04/12/18 Time of Evaluation: 20:24 - Subjective Subjective: CHIEF COMPLAINTS TODAY : AFEBRILE Patient is still coughing. STILL WHEEZING Generalized weakness ! ON IV IRON INFUSION ROS. HEENT : N. Resp : No hemoptysis +VE COUGH/+VE WHEEZE Cardio : No anginal CP, PND, orthopnea, palpitation GI : No abd.pain, n/v ,diarrhea or GI bleeding . 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 Musculoskel : No joint swelling , Derm : No rash Psych : Normal affect. Ext : No swelling ,calf pain PE. Pt. is alert awake in no distress. V.S As noted in the chart Head ,ear nose,throat and eyes : Normal. Neck : Supple with normal carotids. Lungs: B/L EXPIRATORY WHEEZE/RHONCHI Heart : S1 & S2 normal with S4. No murmur. Abd : Soft non tender with normal bowel sounds. Neuro : Moves all ext. with no localized deficit. Ext : No edema with intact pulses.Non tender calves Derm : No rashes or decubitus ulcer. LABS/RADIOLOGY: REVIEWED [facility]GIONE[facility]A URINE AG -VE MYCOPLASMA IGM -VE CT of the abdomen shows thickening of the descending wall +VE COLITIS STOOLS -VE OB Objective - Vital Signs/Intake and Output Vital Signs (last 24 hours): Temp Pulse Resp BP Pulse Ox 97.9 F 93 H 20 112/65 93 L 04/12/18 15:00 04/12/18 15:00 04/12/18 15:00 04/12/18 18:16 04/12/18 15:00 - Medications Medications: Current Medications Albuterol/Ipratropium (Duoneb 3 Mg/0.5 Mg (3 Ml) Ud) 3 ml INH RQ4 PRN PRN Reason: Cough and congestion Albuterol/Ipratropium (Duoneb 3 Mg/0.5 Mg (3 Ml) Ud) 3 ml INH RQ4 [facility] Last Admin: 04/12/18 19:46 Dose: 3 ml Aspirin (Ecotrin) 81 mg PO DAILY [facility] Last Admin: 04/12/18 09:41 Dose: 81 mg Ergocalciferol (Drisdol 50,000 Intl Units Cap) 1 cap PO QWK [facility] Famotidine (Pepcid) 20 mg PO BID [facility] Last Admin: 04/12/18 09:41 Dose: 20 mg Furosemide (Lasix) 40 mg IVP DAILY [facility] Last Admin: 04/12/18 09:41 Dose: 40 mg Ceftriaxone Sodium 1 gm/ (Sodium Chloride) 100 mls @ 100 mls/hr IVPB DAILY [facility]; Protocol Last Admin: 04/12/18 10:05 Dose: 100 mls/hr Ferric Sodium Gluconate Complex 125 mg/ Sodium Chloride 110 mls @ 110 mls/hr IVPB DAILY [facility] Stop: 04/19/18 15:01 Last Admin: 04/12/18 12:57 Dose: Not Given Insulin Human Regular (Novolin R) 0 unit SC ACHS [facility]; Protocol Last Admin: 04/12/18 17:15 Dose: 2 units Methylprednisolone (Solu-Medrol) 30 mg IV Q12 [facility] Last Admin: 04/12/18 09:41 Dose: 30 mg Metoprolol Tartrate (Lopressor) 25 mg PO BID [facility] Last Admin: 04/12/18 18:16 Dose: 25 mg Repaglinide (Prandin) 2 mg PO DAILY [facility] Last Admin: 04/12/18 09:58 Dose: 2 mg Rosuvastatin Calcium (Crestor) 20 mg PO HS [facility] Last Admin: 04/11/18 21:45 Dose: 20 mg Sacubitril/Valsartan (Entresto 24 Mg-26 Mg) 1 tab PO DAILY [facility] Last Admin: 04/12/18 09:43 Dose: 1 tab Ticagrelor (Brilinta) 90 mg PO BID [facility] Last Admin: 04/12/18 18:16 Dose: 90 mg - Labs Labs: 04/11/18 08:16 04/11/18 08:16 PT 12.9 SECONDS (9.7-12.2) H 04/08/18 07:42 INR 1.2 04/08/18 07:42 APTT 30 SECONDS (21-34) 04/08/18 07:42 Assessment and Plan (1) Chr obstructive pulmonary disease w/ acute lower respiratory infxn Status: Acute (2) Chronic congestive heart failure Status: Acute (3) Anemia Status: Acute (4) Colitis Status: Acute (5) HTN (hypertension) Status: Acute (6) DM type 2 (diabetes mellitus, type 2) Status: Acute - Assessment and Plan (Free Text) Plan: ON FERRICELET IV INFUSION DAILY 04/11/18 CONTINUE iv ROCEPHIN 1 G ONCE A DAY 04/07/18. STEROIDS PER PMD. PEPCID 20 MG BY MOUTH TWICE A DAY. GI WORKUP OPD TILL PT MORE STABLE. STOOL C.DIFFICILE -P. PULMONARY TOILET F/U CXR pa AND LATERAL R/O CHF VS PNEUMONIA CASE DISCUSSED WITH THE STAFF..
[2018-04-13 07:46] LABS: BASO % 0.1 % (0.0-2.0); HEMOGLOBIN 9.2 g/dL (11.0-16.0); LYMPH # 0.4 K/uL (1.0-4.3); LYMPH % 4.7 % (20.0-40.0); MEAN CELL VOLUME 76.5 fL (81.0-99.0); MEAN CORPUSCULAR HEMOGLOBIN 24.7 pg (27.0-31.0); MEAN CORPUSCULAR HGB CONC 32.3 g/dL (33.0-37.0); MEAN PLATELET VOLUME 10.5 fL (7.2-11.7); MONO # 0.5 K/uL (0.0-0.8); MONO % 5.4 % (0.0-10.0); NEUT # 8.4 K/uL (1.8-7.0); NEUT % 89.8 % (50.0-75.0); NRBC % 0.2 % (0.0-2.0); PLATELET COUNT 152 K/uL (130-400); RBC 3.73 Mil/uL (3.80-5.20); RED CELL DISTRIBUTION WIDTH 20.5 % (11.5-14.5); WHITE BLOOD COUNT 9.3 K/uL (4.8-10.8)
[2018-04-13 08:01] LABS: ALB/GLOB RATIO 1.3 (1.0-2.1); ALBUMIN 3.1 g/dL (3.5-5.0); CALCIUM 8.5 mg/dl (8.6-10.4)
[2018-04-13] MEDS: (Novolin R) Insulin Human Regular 100 units/ml vial SC SCH ×4 (08:21→21:41)
[2018-04-13 09:21] LABS: ANISOCYTOSIS SLIGHT; BANDS 1 % (0-2); HYPOCHROMIC SLIGHT; LYMPHOCYTE 7 % (20-40); MONOCYTE 5 % (0-10); NEUTROPHIL 87 % (50-75); PLATELET ESTIMATE NORMAL (NORMAL); TOTAL CELLS COUNTED 100
[2018-04-13 09:26] LABS: POLYCHROMIC SLIGHT
[2018-04-13] MEDS: MethylPREDNISolone 40 mg Vial IV SCH ×2 (10:35→17:49)
[2018-04-13] MEDS: Sacubitril/Valsartan 24-26mg Tab PO SCH (10:35)
[2018-04-13] MEDS: Ferric Sodium Gluconat Complex 125 MG in Sodium Chloride 0.9% 100 ML IVPB SCH (11:00)
--- NOTE | 2018-04-13 12:38 | RAD ---
Date of service: 04/13/2018 HISTORY: CHF /PNEUMONIA COMPARISON: 04/07/2018 TECHNIQUE: Chest PA and lateral FINDINGS: LUNGS: No active pulmonary disease. PLEURA: No significant pleural effusion identified. No pneumothorax apparent. CARDIOVASCULAR: Normal heart size. Hiatal hernia with air-fluid level noted retrocardiac. Permanent pacemaker. Normal heart size. OSSEOUS STRUCTURES: No significant abnormalities. VISUALIZED UPPER ABDOMEN: Normal. OTHER FINDINGS: None. IMPRESSION: No active disease.
--- NOTE | 2018-04-13 14:03 | CP.PCM.DIS ---
Provider - Provider Date of Admission: 04/12/18 14:00 Attending physician: Uriah Hernández MD Time Spent in preparation of Discharge (in minutes): 35 Hospital Course - Lab Results Lab Results: Micro Results 04/08/18 07:42 Blood Blood Culture - Final NO GROWTH AFTER 5 DAYS 04/08/18 07:42 Blood Gram Stain - Final TEST NOT PERFORMED 04/08/18 07:42 Blood Blood Culture - Final NO GROWTH AFTER 5 DAYS 04/08/18 07:42 Blood Gram Stain - Final TEST NOT PERFORMED 04/11/18 07:00 Sputum Gram Stain - Final 04/11/18 07:00 Sputum Sputum Culture - Final NORMAL ORAL DANO 04/09/18 14:12 Stool Stool Culture - Final NO SALMONELLA, SHIGELLA OR CAMPYLOBACTER ISOLATED. 04/09/18 03:18 Naris MRSA Culture (Admit) - Final MRSA NOT DETECTED Most Recent Lab Values WBC 9.3 K/uL (4.8-10.8) 04/13/18 07:37 RBC 3.73 Mil/uL (3.80-5.20) L 04/13/18 07:37 Hgb 9.2 g/dL (11.0-16.0) L 04/13/18 07:37 Hct 28.5 % (34.0-47.0) L 04/13/18 07:37 MCV 76.5 fL (81.0-99.0) L 04/13/18 07:37 MCH 24.7 pg (27.0-31.0) L 04/13/18 07:37 MCHC 32.3 g/dL (33.0-37.0) L 04/13/18 07:37 RDW 20.5 % (11.5-14.5) H 04/13/18 07:37 Plt Count 152 K/uL (130-400) 04/13/18 07:37 MPV 10.5 fL (7.2-11.7) 04/13/18 07:37 Neut % (Auto) 89.8 % (50.0-75.0) H 04/13/18 07:37 Lymph % (Auto) 4.7 % (20.0-40.0) L 04/13/18 07:37 Ada % (Auto) 5.4 % (0.0-10.0) 04/13/18 07:37 Eos % (Auto) 0.0 % (0.0-4.0) 04/13/18 07:37 Baso % (Auto) 0.1 % (0.0-2.0) 04/13/18 07:37 Neut # (Auto) 8.4 K/uL (1.8-7.0) H 04/13/18 07:37 Lymph # (Auto) 0.4 K/uL (1.0-4.3) L 04/13/18 07:37 Ada # (Auto) 0.5 K/uL (0.0-0.8) 04/13/18 07:37 Eos # (Auto) 0.0 K/uL (0.0-0.7) 04/13/18 07:37 Baso # (Auto) 0.0 K/uL (0.0-0.2) 04/13/18 07:37 Neutrophils % (Manual) 87 % (50-75) H 04/13/18 07:37 Band Neutrophils % 1 % (0-2) 04/13/18 07:37 Lymphocytes % (Manual) 7 % (20-40) L 04/13/18 07:37 Monocytes % (Manual) 5 % (0-10) 04/13/18 07:37 Differential Comment 04/07/18 15:24 Platelet Estimate Normal (NORMAL) 04/13/18 07:37 Polychromasia Slight 04/13/18 07:37 Hypochromasia (manual) Slight 04/13/18 07:37 Poikilocytosis (manual Slight 04/11/18 08:16 Basophilic Stippling Slight 04/11/18 08:16 Anisocytosis (manual) Slight 04/13/18 07:37 Microcytosis (manual) Slight 04/11/18 08:16 Target Cells Slight 04/11/18 08:16 Tear Drop Cells Slight 04/11/18 08:16 Ovalocytes Slight 04/11/18 08:16 Schistocytes Slight 04/10/18 08:46 ESR 16 mm/hr (0-20) 04/09/18 06:33 PT 12.9 SECONDS (9.7-12.2) H 04/08/18 07:42 INR 1.2 04/08/18 07:42 APTT 30 SECONDS (21-34) 04/08/18 07:42 Sodium 138 mmol/L (132-148) 04/13/18 07:37 Potassium 5.0 mmol/L (3.6-5.2) 04/13/18 07:37 Chloride 101 mmol/L (98-107) 04/13/18 07:37 Carbon Dioxide 33 mmol/L (22-30) H 04/13/18 07:37 Anion Gap 10 (10-20) 04/13/18 07:37 BUN 41 mg/dL (7-17) H 04/13/18 07:37 Creatinine 1.5 mg/dL (0.7-1.2) H 04/13/18 07:37 Est GFR ( Amer) 40 04/13/18 07:37 Est GFR (Non-Af Amer) 33 04/13/18 07:37 POC Glucose (mg/dL) 286 mg/dL (65-110) H 04/13/18 06:13 Random Glucose 280 mg/dL (65-105) H 04/13/18 07:37 Calcium 8.5 mg/dl (8.6-10.4) L 04/13/18 07:37 Phosphorus 3.6 mg/dL (2.5-4.5) 04/08/18 07:50 Magnesium 1.9 mg/dL (1.6-2.3) 04/09/18 06:33 Iron 24 ug/dL (37-170) L 04/10/18 07:46 TIBC 355 ug/dL (250-450) 04/10/18 07:46 % Saturation 7 (20-55) L 04/10/18 07:46 Ferritin 26.0 ng/mL 04/10/18 07:46 Total Bilirubin 0.2 mg/dL (0.2-1.3) 04/13/18 07:37 AST 23 U/L (14-36) 04/13/18 07:37 ALT 29 U/L (9-52) 04/13/18 07:37 Alkaline Phosphatase 54 U/L (38-126) 04/13/18 07:37 Total Creatine Kinase 186 U/L (30-135) H 04/08/18 16:35 CK-MB (Mass) 3.16 ng/mL (0.0-3.38) 04/08/18 16:35 Troponin I 0.0230 ng/mL (0.00-0.120) 04/08/18 16:35 C-Reactive Protein 21.30 mg/L (0.0-9.9) H 04/09/18 06:33 NT-Pro-B Natriuret Pep 97512 pg/mL (0-900) H 04/13/18 07:37 Total Protein 5.4 g/dL (6.3-8.3) L 04/13/18 07:37 Albumin 3.1 g/dL (3.5-5.0) L 04/13/18 07:37 Globulin 2.3 gm/dL (2.2-3.9) 04/13/18 07:37 Albumin/Globulin Ratio 1.3 (1.0-2.1) 04/13/18 07:37 Lipase 201 U/L (23-300) 04/07/18 15:24 Urine Color Yellow (YELLOW) 04/07/18 17:51 Urine Clarity Clear (Clear) 04/07/18 17:51 Urine pH 5.0 (5.0-8.0) 04/07/18 17:51 Ur Specific [place] 1.008 (1.003-1.030) 04/07/18 17:51 Urine Protein Negative mg/dL (NEGATIVE) 04/07/18 17:51 Urine Glucose (UA) Normal mg/dL (Normal) 04/07/18 17:51 Urine Ketones Negative mg/dL (NEGATIVE) 04/07/18 17:51 Urine Blood 2+ (NEGATIVE) H 04/07/18 17:51 Urine Nitrate Negative (NEGATIVE) 04/07/18 17:51 Urine Bilirubin Negative (NEGATIVE) 04/07/18 17:51 Urine Urobilinogen Normal mg/dL (0.2-1.0) 04/07/18 17:51 Ur Leukocyte Esterase Neg Rolf/uL (Negative) 04/07/18 17:51 Urine WBC (Auto) 2 /hpf (0-5) 04/07/18 17:51 Urine RBC (Auto) 20 /hpf (0-3) H 04/07/18 17:51 Ur Squamous Epith Cells 1 /hpf (0-5) 04/07/18 17:51 Urine Bacteria Rare (<OCC) 04/07/18 17:51 Hyaline Casts 3-5 /lpf (0-2) H 04/07/18 17:51 Stool Occult Blood Negative (NEGATIVE) 04/09/18 14:12 Ur L.pneumophila Ag Negative (NEGATIVE) 04/09/18 03:18 Mycoplasma pneumon IgM Negative (NEGATIVE) 04/09/18 06:33 - Hospital Course Hospital Course: For the last few days patient has been complaining of cough expectoration white to yellowish with increasing wheezing symptoms increase in intensity and severity patient became short of breath at rest. Patient presented to [facility] Emergency Room found to have acute COPD with exacerbation and possible respiratory infection the proBNP was elevated at 29,000 chest x-ray did not show any acute infiltrate. Few days ago patient had lower abdominal pain was seen by local MD and was prescribed Flagyl for possible diverticulitis. CT of the abdomen with oral contrast did not revealed any diverticulitis. PAST HIST. Patient has history of ischemic cardiomyopathy with left antegrade ejection fraction of less than 30%. 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 Patient was admitted on the telemetry bed. Serial enzymes were negative for myocardial injury. BNP decreased in number to 12,004 discharge with IV Lasix Patient was given IV antibiotics and IV steroids and bronchodilators. Patient improved on above therapy patient still has occasional wheezing which will be controlled at home on nebulizer and inhalers and a short course of prednisone. Septic workup was negative. Hemoglobin dropped down as low as 8 g. Patient received 3 days of IV iron, and hemoglobin was 9.2 before discharge. Patient will continue her home medications. Discharge Exam - Head Exam Head Exam: NORMOCEPHALIC Discharge Plan - Follow Up Plan Condition: FAIR Disposition: HOME/ ROUTINE
--- NOTE | 2018-04-13 15:32 | CP.PCM.PN ---
Subjective - Date & Time of Evaluation Date of Evaluation: 04/13/18 Time of Evaluation: 15:28 - Subjective Subjective: CC: f/u anemia c/o productive cough. CXR- normal pulm. BNP markedly elevated Denies abdominal pain, diarrhea. CDiff specimen never resulted in lab. Hgb has remained stable. Now patient is on Brillinta. Stool OB positive Patient is too ill for elective EGD/colonoscopy- discussed with patient and her spouse- they will follow up with me in office Objective - Vital Signs/Intake and Output Vital Signs (last 24 hours): Temp Pulse Resp BP Pulse Ox 98.2 F 86 18 117/57 L 99 04/13/18 07:00 04/13/18 07:00 04/13/18 07:00 04/13/18 10:36 04/13/18 07:00 Intake and Output: 04/13/18 04/13/18 06:59 18:59 Intake Total 250 Balance 250 - Medications Medications: Current Medications Aspirin (Ecotrin) 81 mg PO DAILY [facility] Last Admin: 04/13/18 10:34 Dose: 81 mg Ergocalciferol (Drisdol 50,000 Intl Units Cap) 1 cap PO QWK [facility] Famotidine (Pepcid) 20 mg PO BID [facility] Last Admin: 04/13/18 10:34 Dose: 20 mg Furosemide (Lasix) 40 mg IVP DAILY [facility] Last Admin: 04/13/18 10:35 Dose: 40 mg Ferric Sodium Gluconate Complex 125 mg/ Sodium Chloride 110 mls @ 110 mls/hr IVPB DAILY [facility] Stop: 04/19/18 15:01 Last Admin: 04/13/18 11:00 Dose: 110 mls/hr Ceftriaxone Sodium 1 gm/ (Sodium Chloride) 100 mls @ 100 mls/hr IVPB DAILY [facility]; Protocol Insulin Human Regular (Novolin R) 0 unit SC ACHS [facility]; Protocol Last Admin: 04/13/18 12:30 Dose: Not Given Methylprednisolone (Solu-Medrol) 30 mg IV Q12 [facility] Last Admin: 04/13/18 10:35 Dose: 30 mg Metoprolol Tartrate (Lopressor) 25 mg PO BID [facility] Last Admin: 04/13/18 10:36 Dose: 25 mg Pneumococcal Polyvalent Vaccine (Pneumovax 23 Vaccine) 0.5 ml IM .ONCE ONE Stop: 04/14/18 12:01 Repaglinide (Prandin) 2 mg PO DAILY [facility] Last Admin: 04/13/18 10:35 Dose: 2 mg Rosuvastatin Calcium (Crestor) 20 mg PO HS [facility] Last Admin: 04/12/18 22:37 Dose: 20 mg Sacubitril/Valsartan (Entresto 24 Mg-26 Mg) 1 tab PO DAILY [facility] Last Admin: 04/13/18 10:35 Dose: 1 tab Ticagrelor (Brilinta) 90 mg PO BID [facility] Last Admin: 04/13/18 10:35 Dose: 90 mg - Labs Labs: 04/13/18 07:37 04/13/18 07:37 PT 12.9 SECONDS (9.7-12.2) H 04/08/18 07:42 INR 1.2 04/08/18 07:42 APTT 30 SECONDS (21-34) 04/08/18 07:42 - Constitutional Appears: No Acute Distress - Head Exam Head Exam: NORMOCEPHALIC - Neck Exam Neck Exam: Normal Inspection - Respiratory Exam Respiratory Exam: Wheezes - Cardiovascular Exam Cardiovascular Exam: REGULAR RHYTHM - GI/Abdominal Exam GI & Abdominal Exam: Soft. absent: Tenderness Assessment and Plan (1) Anemia Assessment & Plan: stable, iron deficient- R/O chronic GI blood losses, stool OB positive Should have EGD/colonoscopy but at present patient too ill, has dyspnea, elevated BNP and is wheezing Recommend careful monitoring for bleeding on Brillinta Pt/ were provided with my contact info to see me in office after discharge Status: Acute (2) CHF exacerbation Status: Acute (3) Chronic congestive heart failure Status: Acute (4) Colitis Assessment & Plan: seen on CT Clinically stable, without diarrhea. CDiff toxin never received despite 2 orders. If diarrhea recurs will reorder CDiff toxin stool study Status: Acute (5) CAD (coronary artery disease) Status: Acute (6) Cardiomyopathy Status: Acute
[2018-04-13] MEDS: Albuterol-Ipratrop 3 mg / 0.5 (3 ml) UD INH SCH ×3 (15:55→23:38)
--- NOTE | 2018-04-13 17:45 | CP.PCM.PN ---
Subjective - Date & Time of Evaluation Date of Evaluation: 04/13/18 Time of Evaluation: 17:45 - Subjective Subjective: CHIEF COMPLAINTS TODAY : AFEBRILE Patient is STILL WITH BOUTS OF COUGH NON PRODUCTIVE STILL WHEEZING Generalized weakness ! ON IV IRON INFUSION ROS. HEENT : N. Resp : No hemoptysis +VE COUGH/+VE WHEEZE Cardio : No anginal CP, PND, orthopnea, palpitation GI : No abd.pain, n/v ,diarrhea or GI bleeding . 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 Musculoskel : No joint swelling , Derm : No rash Psych : Normal affect. Ext : No swelling ,calf pain PE. Pt. is alert awake in no distress. V.S As noted in the chart Head ,ear nose,throat and eyes : Normal. Neck : Supple with normal carotids. Lungs: B/L EXPIRATORY WHEEZE/RHONCHI Heart : S1 & S2 normal with S4. No murmur. Abd : Soft non tender with normal bowel sounds. Neuro : Moves all ext. with no localized deficit. Ext : No edema with intact pulses.Non tender calves Derm : No rashes or decubitus ulcer. LABS/RADIOLOGY: REVIEWED LEGIONELLA URINE AG -VE MYCOPLASMA IGM -VE CT of the abdomen shows thickening of the descending wall +VE COLITIS STOOLS -VE OB Objective - Vital Signs/Intake and Output Vital Signs (last 24 hours): Temp Pulse Resp BP Pulse Ox 97.9 F 86 20 102/56 L 100 04/13/18 15:20 04/13/18 15:20 04/13/18 15:20 04/13/18 15:20 04/13/18 15:20 Intake and Output: 04/13/18 04/13/18 06:59 18:59 Intake Total 250 Balance 250 - Medications Medications: Current Medications Albuterol/Ipratropium (Duoneb 3 Mg/0.5 Mg (3 Ml) Ud) 3 ml INH RQ4 [facility] Aspirin (Ecotrin) 81 mg PO DAILY [facility] Last Admin: 04/13/18 10:34 Dose: 81 mg Ergocalciferol (Drisdol 50,000 Intl Units Cap) 1 cap PO QWK [facility] Famotidine (Pepcid) 20 mg PO BID [facility] Last Admin: 04/13/18 10:34 Dose: 20 mg Furosemide (Lasix) 40 mg IVP DAILY [facility] Last Admin: 04/13/18 10:35 Dose: 40 mg Ferric Sodium Gluconate Complex 125 mg/ Sodium Chloride 110 mls @ 110 mls/hr IVPB DAILY [facility] Stop: 04/19/18 15:01 Last Admin: 04/13/18 11:00 Dose: 110 mls/hr Ceftriaxone Sodium 1 gm/ (Sodium Chloride) 100 mls @ 100 mls/hr IVPB DAILY [facility]; Protocol Insulin Human Regular (Novolin R) 0 unit SC ACHS [facility]; Protocol Last Admin: 04/13/18 12:30 Dose: Not Given Methylprednisolone (Solu-Medrol) 30 mg IV Q6 [facility] Metoprolol Tartrate (Lopressor) 25 mg PO BID [facility] Last Admin: 04/13/18 10:36 Dose: 25 mg Pneumococcal Polyvalent Vaccine (Pneumovax 23 Vaccine) 0.5 ml IM .ONCE ONE Stop: 04/14/18 12:01 Repaglinide (Prandin) 2 mg PO DAILY [facility] Last Admin: 04/13/18 10:35 Dose: 2 mg Rosuvastatin Calcium (Crestor) 20 mg PO HS [facility] Last Admin: 04/12/18 22:37 Dose: 20 mg Sacubitril/Valsartan (Entresto 24 Mg-26 Mg) 1 tab PO DAILY [facility] Last Admin: 04/13/18 10:35 Dose: 1 tab Ticagrelor (Brilinta) 90 mg PO BID [facility] Last Admin: 04/13/18 10:35 Dose: 90 mg - Labs Labs: 04/13/18 07:37 04/13/18 07:37 PT 12.9 SECONDS (9.7-12.2) H 04/08/18 07:42 INR 1.2 04/08/18 07:42 APTT 30 SECONDS (21-34) 04/08/18 07:42 Assessment and Plan (1) Chr obstructive pulmonary disease w/ acute lower respiratory infxn Status: Acute (2) Chronic congestive heart failure Status: Acute (3) Anemia Status: Acute (4) Colitis Status: Acute (5) HTN (hypertension) Status: Acute (6) DM type 2 (diabetes mellitus, type 2) Status: Acute - Assessment and Plan (Free Text) Plan: PLAN; WILL CHECK PERTUSSIS-SEROLOGY IGG,IGA.. PATIENT HAS PROLONGED COUGH ILLNESS LASTING MORE THAN 2 WEEKS WITHOUT A CLEAR CAUSE. aLSO PATIENT HAS PAROXYSMS OF COUGH. sTART iv zITHROMAX 500 MG LOADING DOSE, F/U iv zITHROMAX 250 MG ONCE A DAY DAILY X5 DAYS. DROPLET PRECAUTIONS FOR PERTUSSIS DC iv ROCEPHIN 1 G ONCE A DAY 04/07/18.-04/13/18 STEROIDS PER PMD. PEPCID 20 MG BY MOUTH TWICE A DAY. ON FERRICELET IV INFUSION DAILY 04/11/18 GI WORKUP OPD TILL PT MORE STABLE DISCUSSED CASE WITH IN DETAIL.
[2018-04-13] MEDS ORDERED: (Novolin R) Insulin Human Regular 100 units/ml vial SC ONE (21:40)
[2018-04-14] MEDS: MethylPREDNISolone 40 mg Vial IV SCH ×4 (00:06→17:23)
[2018-04-14] MEDS ORDERED: Azithromycin 500mg/250ML NS 500 MG/250 ML BAG IVPB STA (02:29)
[2018-04-14] MEDS: Albuterol-Ipratrop 3 mg / 0.5 (3 ml) UD INH SCH ×6 (03:16→23:45)
[2018-04-14] MEDS: (Novolin R) Insulin Human Regular 100 units/ml vial SC SCH ×4 (08:24→21:45)
[2018-04-14] MEDS ORDERED: Ergocalciferol 50,000 Intl Units Cap PO SCH (10:00)
[2018-04-14] MEDS: Sacubitril/Valsartan 24-26mg Tab PO SCH (10:32)
[2018-04-14] MEDS: Ferric Sodium Gluconat Complex 125 MG in Sodium Chloride 0.9% 100 ML IVPB SCH (11:00)
[2018-04-14] MEDS ORDERED: Pneumococcal 23-Valent Vaccine IM ONE (12:00)
--- NOTE | 2018-04-14 14:04 | CP.PCM.PN ---
Subjective - Date & Time of Evaluation Date of Evaluation: 04/14/18 Time of Evaluation: 14:03 - Subjective Subjective: CHIEF COMPLAINTS TODAY : on tapering the steroid patient is now out of breath wheezing cough with no expectoration ROS. HEENT : N. Resp : No hemoptysis Cardio : No anginal CP, PND, orthopnea, palpitation GI : No abd.pain, n/v ,diarrhea or GI bleeding . 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 Musculoskel : No joint swelling , Derm : No rash Psych : Normal affect. Ext : No swelling ,calf pain PE. Pt. is alert awake in no distress. V.S As noted in the chart Head ,ear nose,throat and eyes : Normal. Neck : Supple with normal carotids. Lungs: Bilateral poor air entry with rhonchis at the bases Heart : S1 & S2 normal with S4. No murmur. Abd : Soft non tender with normal bowel sounds. Neuro : Moves all ext. with no localized deficit. Ext : No edema with intact pulses.Non tender calves Derm : No rashes or decubitus ulcer. LABS/RADIOLOGY: CT of the abdomen shows thickening of the descending wall ASSESSMENT/PLAN : we will hold the disc and continue IV L Lasix Objective - Vital Signs/Intake and Output Vital Signs (last 24 hours): Temp Pulse Resp BP Pulse Ox 97.8 F 90 18 114/61 98 04/14/18 08:15 04/14/18 08:15 04/14/18 08:15 04/14/18 10:31 04/14/18 08:15 - Medications Medications: Current Medications Albuterol/Ipratropium (Duoneb 3 Mg/0.5 Mg (3 Ml) Ud) 3 ml INH RQ4 [facility] Last Admin: 04/14/18 11:05 Dose: 3 ml Aspirin (Ecotrin) 81 mg PO DAILY [facility] Last Admin: 04/14/18 10:31 Dose: 81 mg Ergocalciferol (Drisdol 50,000 Intl Units Cap) 1 cap PO QWK [facility] Last Admin: 04/14/18 10:32 Dose: 1 cap Famotidine (Pepcid) 20 mg PO BID [facility] Last Admin: 04/14/18 10:30 Dose: 20 mg Furosemide (Lasix) 40 mg IVP DAILY [facility] Last Admin: 04/14/18 10:31 Dose: 40 mg Ferric Sodium Gluconate Complex 125 mg/ Sodium Chloride 110 mls @ 110 mls/hr IVPB DAILY [facility] Stop: 04/19/18 15:01 Last Admin: 04/14/18 11:00 Dose: 110 mls/hr Azithromycin 250 mg/ Sodium (Chloride) 250 mls @ 250 mls/hr IVPB Q24H [facility]; Protocol Insulin Human Regular (Novolin R) 0 unit SC ACHS [facility]; Protocol Last Admin: 04/14/18 12:15 Dose: 8 units Methylprednisolone (Solu-Medrol) 30 mg IV Q6 [facility] Last Admin: 04/14/18 13:15 Dose: 30 mg Metoprolol Tartrate (Lopressor) 25 mg PO BID [facility] Last Admin: 04/14/18 10:30 Dose: 25 mg Repaglinide (Prandin) 2 mg PO DAILY [facility] Last Admin: 04/14/18 10:31 Dose: 2 mg Rosuvastatin Calcium (Crestor) 20 mg PO HS [facility] Last Admin: 04/13/18 21:07 Dose: 20 mg Sacubitril/Valsartan (Entresto 24 Mg-26 Mg) 1 tab PO DAILY [facility] Last Admin: 04/14/18 10:32 Dose: 1 tab Ticagrelor (Brilinta) 90 mg PO BID [facility] Last Admin: 04/14/18 10:31 Dose: 90 mg - Labs Labs: 04/13/18 07:37 04/13/18 07:37 PT 12.9 SECONDS (9.7-12.2) H 04/08/18 07:42 INR 1.2 04/08/18 07:42 APTT 30 SECONDS (21-34) 04/08/18 07:42
--- NOTE | 2018-04-14 14:59 | CP.PCM.PN ---
Subjective - Date & Time of Evaluation Date of Evaluation: 04/14/18 Time of Evaluation: 14:56 - Subjective Subjective: F/U Colitis/ anemia Denies diarrhea +LLQ mild discomfort On steroids/antibiotics for COPD Less dyspneic today Objective - Vital Signs/Intake and Output Vital Signs (last 24 hours): Temp Pulse Resp BP Pulse Ox 97.8 F 90 18 114/61 98 04/14/18 08:15 04/14/18 08:15 04/14/18 08:15 04/14/18 10:31 04/14/18 08:15 Intake and Output: 04/14/18 04/14/18 06:59 18:59 Intake Total 150 Balance 150 - Medications Medications: Current Medications Albuterol/Ipratropium (Duoneb 3 Mg/0.5 Mg (3 Ml) Ud) 3 ml INH RQ4 [facility] Last Admin: 04/14/18 11:05 Dose: 3 ml Aspirin (Ecotrin) 81 mg PO DAILY [facility] Last Admin: 04/14/18 10:31 Dose: 81 mg Ergocalciferol (Drisdol 50,000 Intl Units Cap) 1 cap PO QWK [facility] Last Admin: 04/14/18 10:32 Dose: 1 cap Famotidine (Pepcid) 20 mg PO BID [facility] Last Admin: 04/14/18 10:30 Dose: 20 mg Furosemide (Lasix) 40 mg IVP DAILY [facility] Last Admin: 04/14/18 10:31 Dose: 40 mg Ferric Sodium Gluconate Complex 125 mg/ Sodium Chloride 110 mls @ 110 mls/hr IVPB DAILY [facility] Stop: 04/19/18 15:01 Last Admin: 04/14/18 11:00 Dose: 110 mls/hr Azithromycin 250 mg/ Sodium (Chloride) 250 mls @ 250 mls/hr IVPB Q24H [facility]; Protocol Insulin Human Regular (Novolin R) 0 unit SC ACHS [facility]; Protocol Last Admin: 04/14/18 12:15 Dose: 8 units Methylprednisolone (Solu-Medrol) 30 mg IV Q6 [facility] Last Admin: 04/14/18 13:15 Dose: 30 mg Metoprolol Tartrate (Lopressor) 25 mg PO BID [facility] Last Admin: 04/14/18 10:30 Dose: 25 mg Repaglinide (Prandin) 2 mg PO DAILY [facility] Last Admin: 04/14/18 10:31 Dose: 2 mg Rosuvastatin Calcium (Crestor) 20 mg PO HS [facility] Last Admin: 04/13/18 21:07 Dose: 20 mg Sacubitril/Valsartan (Entresto 24 Mg-26 Mg) 1 tab PO DAILY [facility] Last Admin: 04/14/18 10:32 Dose: 1 tab Ticagrelor (Brilinta) 90 mg PO BID [facility] Last Admin: 04/14/18 10:31 Dose: 90 mg - Labs Labs: 04/13/18 07:37 04/13/18 07:37 PT 12.9 SECONDS (9.7-12.2) H 04/08/18 07:42 INR 1.2 04/08/18 07:42 APTT 30 SECONDS (21-34) 04/08/18 07:42 - Constitutional Appears: No Acute Distress - Head Exam Head Exam: NORMOCEPHALIC - Eye Exam Eye Exam: absent: Scleral icterus - Respiratory Exam Respiratory Exam: Rhonchi - Cardiovascular Exam Cardiovascular Exam: REGULAR RHYTHM (S3 gallop audible) - GI/Abdominal Exam GI & Abdominal Exam: Soft, Normal Bowel Sounds. absent: Distended, Guarding, Tenderness Assessment and Plan (1) Anemia Assessment & Plan: Iron deficient. Stool OB positive. Has had GI workup in past few years. Presently too acutely ill for GI procedures. Will be scheduled electively as outpatient. Pt and spouse have my contact information Need to monitor carefully for GI bleeding on Brillinta Status: Acute (2) CHF exacerbation Status: Acute (3) Chronic congestive heart failure Status: Acute (4) Colitis Assessment & Plan: Seen on CT. ? Clinical significance. Asymptomatic Status: Acute (5) CAD (coronary artery disease) Status: Acute (6) Cardiomyopathy Status: Acute
--- NOTE | 2018-04-14 23:23 | CP.PCM.PN ---
Subjective - Date & Time of Evaluation Date of Evaluation: 04/14/18 Time of Evaluation: 23:23 - Subjective Subjective: CHIEF COMPLAINTS TODAY : AFEBRILE C/O LESS COUGH LESS DYSPNOEA PT ON DROPLET PRECAUTION FOR R/O PERTUSSIS AT BEDSIDE. Generalized weakness ! ON IV IRON INFUSION ROS. HEENT : N. Resp : No hemoptysis +VE COUGH/+VE WHEEZE Cardio : No anginal CP, PND, orthopnea, palpitation GI : No abd.pain, n/v ,diarrhea or GI bleeding . 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 Musculoskel : No joint swelling , Derm : No rash Psych : Normal affect. Ext : No swelling ,calf pain PE. Pt. is alert awake in no distress. V.S As noted in the chart Head ,ear nose,throat and eyes : Normal. Neck : Supple with normal carotids. Lungs: B/L EXPIRATORY WHEEZE/RHONCHI Heart : S1 & S2 normal with S4. No murmur. Abd : Soft non tender with normal bowel sounds. Neuro : Moves all ext. with no localized deficit. Ext : No edema with intact pulses.Non tender calves Derm : No rashes or decubitus ulcer. LABS/RADIOLOGY: REVIEWED [facility]GIONE[facility]A URINE AG -VE MYCOPLASMA IGM -VE CT of the abdomen shows thickening of the descending wall +VE COLITIS STOOLS -VE OB Objective - Vital Signs/Intake and Output Vital Signs (last 24 hours): Temp Pulse Resp BP Pulse Ox 98.3 F 104 H 20 120/70 98 04/14/18 15:15 04/14/18 16:00 04/14/18 15:15 04/14/18 17:23 04/14/18 15:15 - Medications Medications: Current Medications Albuterol/Ipratropium (Duoneb 3 Mg/0.5 Mg (3 Ml) Ud) 3 ml INH RQ4 [facility] Last Admin: 04/14/18 19:23 Dose: 3 ml Aspirin (Ecotrin) 81 mg PO DAILY [facility] Last Admin: 04/14/18 10:31 Dose: 81 mg Ergocalciferol (Drisdol 50,000 Intl Units Cap) 1 cap PO QWK [facility] Last Admin: 04/14/18 10:32 Dose: 1 cap Famotidine (Pepcid) 20 mg PO BID [facility] Last Admin: 04/14/18 17:22 Dose: 20 mg Furosemide (Lasix) 40 mg IVP DAILY [facility] Last Admin: 04/14/18 10:31 Dose: 40 mg Ferric Sodium Gluconate Complex 125 mg/ Sodium Chloride 110 mls @ 110 mls/hr I VPB DAILY [facility] Stop: 04/19/18 15:01 Last Admin: 04/14/18 11:00 Dose: 110 mls/hr Azithromycin 250 mg/ Sodium (Chloride) 250 mls @ 250 mls/hr IVPB Q24H [facility]; Protocol Insulin Human Regular (Novolin R) 0 unit SC ACHS [facility]; Protocol Last Admin: 04/14/18 21:45 Dose: 4 units Methylprednisolone (Solu-Medrol) 30 mg IV Q6 [facility] Last Admin: 04/14/18 17:23 Dose: 30 mg Metoprolol Tartrate (Lopressor) 25 mg PO BID [facility] Last Admin: 04/14/18 17:23 Dose: 25 mg Repaglinide (Prandin) 2 mg PO DAILY [facility] Last Admin: 04/14/18 10:31 Dose: 2 mg Rosuvastatin Calcium (Crestor) 20 mg PO HS [facility] Last Admin: 04/14/18 21:24 Dose: 20 mg Sacubitril/Valsartan (Entresto 24 Mg-26 Mg) 1 tab PO DAILY [facility] Last Admin: 04/14/18 10:32 Dose: 1 tab Ticagrelor (Brilinta) 90 mg PO BID [facility] Last Admin: 04/14/18 17:22 Dose: 90 mg - Labs Labs: 04/13/18 07:37 04/13/18 07:37 PT 12.9 SECONDS (9.7-12.2) H 04/08/18 07:42 INR 1.2 04/08/18 07:42 APTT 30 SECONDS (21-34) 04/08/18 07:42 Assessment and Plan (1) Chr obstructive pulmonary disease w/ acute lower respiratory infxn Status: Acute (2) Chronic congestive heart failure Status: Acute (3) Anemia Status: Acute (4) Colitis Status: Acute (5) HTN (hypertension) Status: Acute (6) DM type 2 (diabetes mellitus, type 2) Status: Acute - Assessment and Plan (Free Text) Plan: PATIENT HAS PROLONGED COUGH ILLNESS LASTING MORE THAN 2 WEEKS WITHOUT A CLEAR CAUSE. aLSO PATIENT HAS PAROXYSMS OF COUGH. CONTINUE iv zITHROMAX 500 MG LOADING DOSE, F/U iv zITHROMAX 250 MG ONCE A DAY DAILY X5 DAYS. DROPLET PRECAUTIONS FOR PERTUSSIS DC iv ROCEPHIN 1 G ONCE A DAY 04/07/18.-04/13/18 INCREASED STEROIDS PER PMD. PEPCID 20 MG BY MOUTH TWICE A DAY. ON FERRICELET IV INFUSION DAILY 04/11/18 PT TO GET Tdap 0.5ml IM IN AM 04/15/18. SPOKE TO PHARMACY. F/U PERTUSSIS IGA.IGG SEROLOGY
[2018-04-15] MEDS: MethylPREDNISolone 40 mg Vial IV SCH ×4 (00:09→19:00)
[2018-04-15] MEDS: Azithromycin 250 MG in Sodium Chloride 0.9% 250 ML IVPB SCH (01:45)
[2018-04-15] MEDS: Albuterol-Ipratrop 3 mg / 0.5 (3 ml) UD INH SCH ×5 (05:18→19:34)
[2018-04-15 08:09] LABS: BASO % 0.3 % (0.0-2.0); LYMPH # 0.4 K/uL (1.0-4.3); LYMPH % 3.5 % (20.0-40.0); MEAN CELL VOLUME 76.6 fL (81.0-99.0); MEAN CORPUSCULAR HEMOGLOBIN 24.9 pg (27.0-31.0); MEAN CORPUSCULAR HGB CONC 32.6 g/dL (33.0-37.0); MEAN PLATELET VOLUME 10.6 fL (7.2-11.7); MONO # 0.6 K/uL (0.0-0.8); MONO % 4.9 % (0.0-10.0); NEUT # 11.1 K/uL (1.8-7.0); NEUT % 91.3 % (50.0-75.0); NRBC % 0.5 % (0.0-2.0); PLATELET COUNT 144 K/uL (130-400); RBC 3.59 Mil/uL (3.80-5.20); RED CELL DISTRIBUTION WIDTH 20.4 % (11.5-14.5); WHITE BLOOD COUNT 12.1 K/uL (4.8-10.8)
[2018-04-15] MEDS: (Novolin R) Insulin Human Regular 100 units/ml vial SC SCH ×4 (08:28→22:29)
[2018-04-15 08:30] LABS: ALB/GLOB RATIO 1.2 (1.0-2.1); ALBUMIN 2.9 g/dL (3.5-5.0)
[2018-04-15 08:49] LABS: LYMPHOCYTE 2 % (20-40); MONOCYTE 5 % (0-10); NEUTROPHIL 93 % (50-75); TOTAL CELLS COUNTED 100
[2018-04-15 08:50] LABS: PLATELET ESTIMATE NORMAL (NORMAL)
[2018-04-15 08:51] LABS: ANISOCYTOSIS SLIGHT; HYPOCHROMIC MODERATE; POLYCHROMIC SLIGHT
[2018-04-15 08:53] LABS: OVALOCYTES SLIGHT; TARGET CELLS SLIGHT
[2018-04-15] MEDS ORDERED: Tdap Vaccine 0.5 ml Vial (10-64 yrs) IM ONE (10:00)
[2018-04-15] MEDS: Ferric Sodium Gluconat Complex 125 MG in Sodium Chloride 0.9% 100 ML IVPB SCH (10:48)
[2018-04-15] MEDS: Sacubitril/Valsartan 24-26mg Tab PO SCH (10:49)
--- NOTE | 2018-04-15 13:45 | CP.PCM.PN ---
Subjective - Date & Time of Evaluation Date of Evaluation: 04/15/18 Time of Evaluation: 13:44 - Subjective Subjective: CHIEF COMPLAINTS TODAY : on tapering the steroid patient is now out of breath wheezing cough with no expectoration ROS. HEENT : N. Resp : No hemoptysis Cardio : No anginal CP, PND, orthopnea, palpitation GI : No abd.pain, n/v ,diarrhea or GI bleeding . 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 Musculoskel : No joint swelling , Derm : No rash Psych : Normal affect. Ext : No swelling ,calf pain PE. Pt. is alert awake in no distress. V.S As noted in the chart Head ,ear nose,throat and eyes : Normal. Neck : Supple with normal carotids. Lungs: Bilateral poor air entry with rhonchis at the bases Heart : S1 & S2 normal with S4. No murmur. Abd : Soft non tender with normal bowel sounds. Neuro : Moves all ext. with no localized deficit. Ext : No edema with intact pulses.Non tender calves Derm : No rashes or decubitus ulcer. LABS/RADIOLOGY: CT of the abdomen shows thickening of the descending wall ASSESSMENT/PLAN : blood sugars are elevated due to steroids. Will add long-acting insulin in the night. Continue present bronchodilators and IV antibiotics. Awaiting for whooping cough serology Objective - Vital Signs/Intake and Output Vital Signs (last 24 hours): Temp Pulse Resp BP Pulse Ox 98.2 F 101 H 20 106/58 L 95 04/15/18 07:39 04/15/18 07:55 04/15/18 07:39 04/15/18 10:49 04/15/18 07:39 - Medications Medications: Current Medications Albuterol/Ipratropium (Duoneb 3 Mg/0.5 Mg (3 Ml) Ud) 3 ml INH RQ4 [facility] Last Admin: 04/15/18 11:24 Dose: 3 ml Aspirin (Ecotrin) 81 mg PO DAILY [facility] Last Admin: 04/15/18 10:49 Dose: 81 mg Ergocalciferol (Drisdol 50,000 Intl Units Cap) 1 cap PO QWK [facility] Last Admin: 04/14/18 10:32 Dose: 1 cap Famotidine (Pepcid) 20 mg PO BID [facility] Last Admin: 04/15/18 10:49 Dose: 20 mg Furosemide (Lasix) 40 mg IVP DAILY [facility] Last Admin: 04/15/18 10:49 Dose: 40 mg Ferric Sodium Gluconate Complex 125 mg/ Sodium Chloride 110 mls @ 110 mls/hr IVPB DAILY [facility] Stop: 04/19/18 15:01 Last Admin: 04/15/18 10:48 Dose: 110 mls/hr Azithromycin 250 mg/ Sodium (Chloride) 250 mls @ 250 mls/hr IVPB Q24H [facility]; Protocol Last Admin: 04/15/18 01:45 Dose: 250 mls/hr Insulin Human Regular (Novolin R) 0 unit SC ACHS [facility]; Protocol Last Admin: 04/15/18 11:25 Dose: 10 units Methylprednisolone (Solu-Medrol) 30 mg IV Q6 [facility] Last Admin: 04/15/18 11:25 Dose: 30 mg Metoprolol Tartrate (Lopressor) 25 mg PO BID [facility] Last Admin: 04/15/18 10:49 Dose: 25 mg Repaglinide (Prandin) 2 mg PO DAILY [facility] Last Admin: 04/15/18 10:49 Dose: 2 mg Rosuvastatin Calcium (Crestor) 20 mg PO HS [facility] Last Admin: 04/14/18 21:24 Dose: 20 mg Sacubitril/Valsartan (Entresto 24 Mg-26 Mg) 1 tab PO DAILY [facility] Last Admin: 04/15/18 10:49 Dose: 1 tab Ticagrelor (Brilinta) 90 mg PO BID [facility] Last Admin: 04/15/18 10:49 Dose: 90 mg - Labs Labs: 04/15/18 07:52 04/15/18 07:52 PT 12.9 SECONDS (9.7-12.2) H 04/08/18 07:42 INR 1.2 04/08/18 07:42 APTT 30 SECONDS (21-34) 04/08/18 07:42
--- NOTE | 2018-04-15 14:54 | CP.PCM.PN ---
Subjective - Date & Time of Evaluation Date of Evaluation: 04/15/18 Time of Evaluation: 14:54 - Subjective Subjective: CHIEF COMPLAINTS TODAY : AFEBRILE C/O LESS COUGH LESS DYSPNOEA PT ON DROPLET PRECAUTION FOR R/O PERTUSSIS AT BEDSIDE. Generalized weakness ! ON IV IRON INFUSION ROS. HEENT : N. Resp : No hemoptysis +VE COUGH/+VE WHEEZE Cardio : No anginal CP, PND, orthopnea, palpitation GI : No abd.pain, n/v ,diarrhea or GI bleeding . 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 Musculoskel : No joint swelling , Derm : No rash Psych : Normal affect. Ext : No swelling ,calf pain PE. Pt. is alert awake in no distress. V.S As noted in the chart Head ,ear nose,throat and eyes : Normal. Neck : Supple with normal carotids. Lungs: B/L EXPIRATORY WHEEZE/RHONCHI Heart : S1 & S2 normal with S4. No murmur. Abd : Soft non tender with normal bowel sounds. Neuro : Moves all ext. with no localized deficit. Ext : No edema with intact pulses.Non tender calves Derm : No rashes or decubitus ulcer. LABS/RADIOLOGY: REVIEWED WBC 12.1 H/H 9.0. CXR 04/13 NAD. CREAT 1.4/BUN 42. [facility]GIONE[facility]A URINE AG -VE MYCOPLASMA IGM -VE CT of the abdomen shows thickening of the descending wall +VE COLITIS STOOLS -VE OB Objective - Vital Signs/Intake and Output Vital Signs (last 24 hours): Temp Pulse Resp BP Pulse Ox 98.2 F 87 20 106/58 L 95 04/15/18 07:39 04/15/18 11:39 04/15/18 07:39 04/15/18 10:49 04/15/18 07:39 - Medications Medications: Current Medications Albuterol/Ipratropium (Duoneb 3 Mg/0.5 Mg (3 Ml) Ud) 3 ml INH RQ4 [facility] Last Admin: 04/15/18 11:24 Dose: 3 ml Aspirin (Ecotrin) 81 mg PO DAILY [facility] Last Admin: 04/15/18 10:49 Dose: 81 mg Ergocalciferol (Drisdol 50,000 Intl Units Cap) 1 cap PO QWK [facility] Last Admin: 04/14/18 10:32 Dose: 1 cap Famotidine (Pepcid) 20 mg PO BID [facility] Last Admin: 04/15/18 10:49 Dose: 20 mg Furosemide (Lasix) 40 mg IVP DAILY [facility] Last Admin: 04/15/18 10:49 Dose: 40 mg Ferric Sodium Gluconate Complex 125 mg/ Sodium Chloride 110 mls @ 110 mls/hr IVPB DAILY [facility] Stop: 04/19/18 15:01 Last Admin: 04/15/18 10:48 Dose: 110 mls/hr Azithromycin 250 mg/ Sodium (Chloride) 250 mls @ 250 mls/hr IVPB Q24H [facility]; Protocol Last Admin: 04/15/18 01:45 Dose: 250 mls/hr Insulin Glargine (Lantus) 25 unit SC HS [facility] Insulin Human Regular (Novolin R) 0 unit SC ACHS [facility]; Protocol Last Admin: 04/15/18 11:25 Dose: 10 units Methylprednisolone (Solu-Medrol) 30 mg IV Q6 [facility] Last Admin: 04/15/18 11:25 Dose: 30 mg Metoprolol Tartrate (Lopressor) 25 mg PO BID [facility] Last Admin: 04/15/18 10:49 Dose: 25 mg Repaglinide (Prandin) 2 mg PO DAILY [facility] Last Admin: 04/15/18 10:49 Dose: 2 mg Rosuvastatin Calcium (Crestor) 20 mg PO HS [facility] Last Admin: 04/14/18 21:24 Dose: 20 mg Sacubitril/Valsartan (Entresto 24 Mg-26 Mg) 1 tab PO DAILY [facility] Last Admin: 04/15/18 10:49 Dose: 1 tab Ticagrelor (Brilinta) 90 mg PO BID [facility] Last Admin: 04/15/18 10:49 Dose: 90 mg - Labs Labs: 04/15/18 07:52 04/15/18 07:52 PT 12.9 SECONDS (9.7-12.2) H 04/08/18 07:42 INR 1.2 04/08/18 07:42 APTT 30 SECONDS (21-34) 04/08/18 07:42 Assessment and Plan (1) Chr obstructive pulmonary disease w/ acute lower respiratory infxn Assessment & Plan: PATIENT HAS PROLONGED COUGH ILLNESS LASTING MORE THAN 2 WEEKS WITHOUT A CLEAR CAUSE. ALSO PATIENT HAS PAROXYSMS OF COUGH. CONTINUE iv ZITHROMAX 500 MG LOADING DOSE, F/U iv zITHROMAX 250 MG ONCE A DAY DAILY X5 DAYS. DROPLET PRECAUTIONS FOR PERTUSSIS DC iv ROCEPHIN 1 G ONCE A DAY 04/07/18.-04/13/18 INCREASED STEROIDS PER PMD. PEPCID 20 MG BY MOUTH TWICE A DAY. ON FERRICELET IV INFUSION DAILY 04/11/18 PT GOT Tdap 0.5ml IM TODAY 04/16/18. F/U PERTUSSIS IGA.IGG SEROLOGY DISCUSSED WITH Status: Acute (2) Chronic congestive heart failure Status: Acute (3) Anemia Status: Acute (4) Colitis Status: Acute (5) HTN (hypertension) Status: Acute (6) DM type 2 (diabetes mellitus, type 2) Status: Acute
[2018-04-15] MEDS: (Lantus) Insulin Glargine, Recombinant SC SCH (22:29)
[2018-04-16] MEDS: Albuterol-Ipratrop 3 mg / 0.5 (3 ml) UD INH SCH ×7 (01:00→23:23)
[2018-04-16] MEDS: MethylPREDNISolone 40 mg Vial IV SCH ×4 (02:16→17:48)
[2018-04-16] MEDS: Azithromycin 250 MG in Sodium Chloride 0.9% 250 ML IVPB SCH (02:17)
[2018-04-16] MEDS: (Novolin R) Insulin Human Regular 100 units/ml vial SC SCH ×4 (08:34→21:26)
[2018-04-16] MEDS: Sacubitril/Valsartan 24-26mg Tab PO SCH (09:46)
[2018-04-16] MEDS: Ferric Sodium Gluconat Complex 125 MG in Sodium Chloride 0.9% 100 ML IVPB SCH (09:47)
--- NOTE | 2018-04-16 14:45 | CP.PCM.PN ---
Subjective - Date & Time of Evaluation Date of Evaluation: 04/16/18 Time of Evaluation: 14:45 - Subjective Subjective: CHIEF COMPLAINTS TODAY : on tapering the steroid patient is now out of breath wheezing cough with no expectoration ROS. HEENT : N. Resp : No hemoptysis Cardio : No anginal CP, PND, orthopnea, palpitation GI : No abd.pain, n/v ,diarrhea or GI bleeding . 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 Musculoskel : No joint swelling , Derm : No rash Psych : Normal affect. Ext : No swelling ,calf pain PE. Pt. is alert awake in no distress. V.S As noted in the chart Head ,ear nose,throat and eyes : Normal. Neck : Supple with normal carotids. Lungs: Bilateral poor air entry with rhonchis at the bases Heart : S1 & S2 normal with S4. No murmur. Abd : Soft non tender with normal bowel sounds. Neuro : Moves all ext. with no localized deficit. Ext : No edema with intact pulses.Non tender calves Derm : No rashes or decubitus ulcer. LABS/RADIOLOGY: CT of the abdomen shows thickening of the descending wall ASSESSMENT/PLAN : blood sugars are elevated due to steroids. Will add long-acting insulin in the night. Continue present bronchodilators and IV antibiotics. Awaiting for whooping cough serology Objective - Vital Signs/Intake and Output Vital Signs (last 24 hours): Temp Pulse Resp BP Pulse Ox 98.1 F 90 20 132/73 96 04/16/18 07:00 04/16/18 08:39 04/16/18 07:00 04/16/18 09:46 04/16/18 07:00 - Medications Medications: Current Medications Albuterol/Ipratropium (Duoneb 3 Mg/0.5 Mg (3 Ml) Ud) 3 ml INH RQ4 [facility] Last Admin: 04/16/18 11:36 Dose: 3 ml Aspirin (Ecotrin) 81 mg PO DAILY [facility] Last Admin: 04/16/18 09:46 Dose: 81 mg Ergocalciferol (Drisdol 50,000 Intl Units Cap) 1 cap PO QWK [facility] Last Admin: 04/14/18 10:32 Dose: 1 cap Famotidine (Pepcid) 20 mg PO BID [facility] Last Admin: 04/16/18 09:46 Dose: 20 mg Furosemide (Lasix) 40 mg IVP DAILY [facility] Last Admin: 04/16/18 09:46 Dose: 40 mg Ferric Sodium Gluconate Complex 125 mg/ Sodium Chloride 110 mls @ 110 mls/hr IVPB DAILY [facility] Stop: 04/19/18 15:01 Last Admin: 04/16/18 09:47 Dose: 110 mls/hr Azithromycin 250 mg/ Sodium (Chloride) 250 mls @ 250 mls/hr IVPB Q24H [facility]; Protocol Last Admin: 04/16/18 02:17 Dose: 250 mls/hr Insulin Glargine (Lantus) 25 unit SC HS [facility] Last Admin: 04/15/18 22:29 Dose: 25 units Insulin Human Regular (Novolin R) 0 unit SC [facility]; Protocol Last Admin: 04/16/18 11:37 Dose: 10 units Methylprednisolone (Solu-Medrol) 30 mg IV Q6 [facility] Last Admin: 04/16/18 11:37 Dose: 30 mg Metoprolol Tartrate (Lopressor) 25 mg PO BID [facility] Last Admin: 04/16/18 09:46 Dose: 25 mg Repaglinide (Prandin) 2 mg PO DAILY [facility] Last Admin: 04/16/18 09:46 Dose: 2 mg Rosuvastatin Calcium (Crestor) 20 mg PO [facility] Last Admin: 04/15/18 22:28 Dose: 20 mg Sacubitril/Valsartan (Entresto 24 Mg-26 Mg) 1 tab PO DAILY [facility] Last Admin: 04/16/18 09:46 Dose: 1 tab Ticagrelor (Brilinta) 90 mg PO BID [facility] Last Admin: 04/16/18 09:46 Dose: 90 mg - Labs Labs: 04/15/18 07:52 04/15/18 07:52 PT 12.9 SECONDS (9.7-12.2) H 04/08/18 07:42 INR 1.2 04/08/18 07:42 APTT 30 SECONDS (21-34) 04/08/18 07:42
[2018-04-16] MEDS: (Lantus) Insulin Glargine, Recombinant SC SCH (21:27)
--- NOTE | 2018-04-16 22:31 | CP.PCM.PN ---
Subjective - Date & Time of Evaluation Date of Evaluation: 04/16/18 Time of Evaluation: 22:31 - Subjective Subjective: CHIEF COMPLAINTS TODAY : AFEBRILE. FEELING BETTER SITTING ON SIDE OF BED PT ON DROPLET PRECAUTION FOR R/O PERTUSSIS AT BEDSIDE. ON IV IRON INFUSION DAILY ROS. HEENT : N. Resp : No hemoptysis +VE COUGH/+VE WHEEZE Cardio : No anginal CP, PND, orthopnea, palpitation GI : No abd.pain, n/v ,diarrhea or GI bleeding . 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 Musculoskel : No joint swelling , Derm : No rash Psych : Normal affect. Ext : No swelling ,calf pain PE. Pt. is alert awake in no distress. V.S As noted in the chart Head ,ear nose,throat and eyes : Normal. Neck : Supple with normal carotids. Lungs: LESS B/L EXPIRATORY WHEEZE Heart : S1 & S2 normal with S4. No murmur. Abd : Soft non tender with normal bowel sounds. Neuro : Moves all ext. with no localized deficit. Ext : No edema with intact pulses.Non tender calves Derm : No rashes or decubitus ulcer. LABS/RADIOLOGY: REVIEWED WBC 12.1 H/H 9.0. CXR 04/13 NAD. CREAT 1.4/BUN 42. LEGIONELLA URINE AG -VE MYCOPLASMA IGM -VE CT of the abdomen shows thickening of the descending wall +VE COLITIS STOOLS -VE OB Objective - Vital Signs/Intake and Output Vital Signs (last 24 hours): Temp Pulse Resp BP Pulse Ox 97.4 F L 69 20 115/65 96 04/16/18 15:00 04/16/18 15:00 04/16/18 15:00 04/16/18 17:49 04/16/18 15:00 - Medications Medications: Current Medications Albuterol/Ipratropium (Duoneb 3 Mg/0.5 Mg (3 Ml) Ud) 3 ml INH RQ4 [facility] Last Admin: 04/16/18 19:42 Dose: 3 ml Aspirin (Ecotrin) 81 mg PO DAILY [facility] Last Admin: 04/16/18 09:46 Dose: 81 mg Ergocalciferol (Drisdol 50,000 Intl Units Cap) 1 cap PO QWK [facility] Last Admin: 04/14/18 10:32 Dose: 1 cap Famotidine (Pepcid) 20 mg PO BID [facility] Last Admin: 04/16/18 17:48 Dose: 20 mg Furosemide (Lasix) 40 mg IVP DAILY [facility] Last Admin: 04/16/18 09:46 Dose: 40 mg Ferric Sodium Gluconate Complex 125 mg/ Sodium Chloride 110 mls @ 110 mls/hr IVPB DAILY [facility] Stop: 04/19/18 15:01 Last Admin: 04/16/18 09:47 Dose: 110 mls/hr Azithromycin 250 mg/ Sodium (Chloride) 250 mls @ 250 mls/hr IVPB Q24H [facility]; P rotocol Last Admin: 04/16/18 02:17 Dose: 250 mls/hr Insulin Glargine (Lantus) 25 unit SC [facility] Last Admin: 04/16/18 21:27 Dose: 25 units Insulin Human Regular (Novolin R) 0 unit SC [facility]; Protocol Last Admin: 04/16/18 21:26 Dose: 3 units Methylprednisolone (Solu-Medrol) 30 mg IV Q6 [facility] Last Admin: 04/16/18 17:48 Dose: 30 mg Metoprolol Tartrate (Lopressor) 25 mg PO BID [facility] Last Admin: 04/16/18 17:49 Dose: 25 mg Repaglinide (Prandin) 2 mg PO DAILY [facility] Last Admin: 04/16/18 09:46 Dose: 2 mg Rosuvastatin Calcium (Crestor) 20 mg PO HS [facility] Last Admin: 04/16/18 21:26 Dose: 20 mg Sacubitril/Valsartan (Entresto 24 Mg-26 Mg) 1 tab PO DAILY [facility] Last Admin: 04/16/18 09:46 Dose: 1 tab Ticagrelor (Brilinta) 90 mg PO BID [facility] Last Admin: 04/16/18 17:49 Dose: 90 mg - Labs Labs: 04/15/18 07:52 04/15/18 07:52 PT 12.9 SECONDS (9.7-12.2) H 04/08/18 07:42 INR 1.2 04/08/18 07:42 APTT 30 SECONDS (21-34) 04/08/18 07:42 Assessment and Plan (1) Chr obstructive pulmonary disease w/ acute lower respiratory infxn Assessment & Plan: CXR REPEAT NOTED -NAD PT S/P Dtap -no side-effects. CONTINUE iv ZITHROMAX 500 MG LOADING DOSE, F/U iv zITHROMAX 250 MG ONCE A DAY DAILY X5 DAYS. DROPLET PRECAUTIONS FOR PERTUSSIS Status: Acute (2) Chronic congestive heart failure Status: Acute (3) Anemia Status: Acute (4) Colitis Status: Acute (5) HTN (hypertension) Status: Acute (6) DM type 2 (diabetes mellitus, type 2) Assessment & Plan: BS HIGH SEC TO STEROIDS. Status: Acute
[2018-04-17] MEDS: MethylPREDNISolone 40 mg Vial IV SCH ×4 (00:12→22:36)
[2018-04-17] MEDS: Azithromycin 250 MG in Sodium Chloride 0.9% 250 ML IVPB SCH (02:18)
[2018-04-17] MEDS: Albuterol-Ipratrop 3 mg / 0.5 (3 ml) UD INH SCH ×6 (04:14→23:26)
[2018-04-17 08:24] LABS: BASO # 0.1 K/uL (0.0-0.2); BASO % 0.4 % (0.0-2.0); HEMOGLOBIN 10.3 g/dL (11.0-16.0); LYMPH # 0.5 K/uL (1.0-4.3); LYMPH % 3.1 % (20.0-40.0); MEAN CELL VOLUME 77.1 fL (81.0-99.0); MEAN CORPUSCULAR HEMOGLOBIN 24.9 pg (27.0-31.0); MEAN CORPUSCULAR HGB CONC 32.3 g/dL (33.0-37.0); MEAN PLATELET VOLUME 10.4 fL (7.2-11.7); MONO # 0.7 K/uL (0.0-0.8); MONO % 4.2 % (0.0-10.0); NEUT # 14.5 K/uL (1.8-7.0); NEUT % 92.3 % (50.0-75.0); NRBC % 0.2 % (0.0-2.0); PLATELET COUNT 149 K/uL (130-400); RBC 4.15 Mil/uL (3.80-5.20); RED CELL DISTRIBUTION WIDTH 20.4 % (11.5-14.5); WHITE BLOOD COUNT 15.7 K/uL (4.8-10.8)
[2018-04-17 08:39] LABS: ALB/GLOB RATIO 1.2 (1.0-2.1); ALBUMIN 3.1 g/dL (3.5-5.0); CALCIUM 9.2 mg/dl (8.6-10.4)
[2018-04-17] MEDS: Ferric Sodium Gluconat Complex 125 MG in Sodium Chloride 0.9% 100 ML IVPB SCH (09:31)
[2018-04-17] MEDS: Sacubitril/Valsartan 24-26mg Tab PO SCH (09:32)
[2018-04-17] MEDS: (Novolin R) Insulin Human Regular 100 units/ml vial SC SCH ×4 (09:33→22:34)
[2018-04-17 09:49] LABS: BANDS 2 % (0-2); LYMPHOCYTE 3 % (20-40); MONOCYTE 5 % (0-10); NEUTROPHIL 90 % (50-75); NUCLEATED RED BLOOD CELL 1 % (0-0); TOTAL CELLS COUNTED 100
[2018-04-17 09:50] LABS: ANISOCYTOSIS MODERATE; HYPOCHROMIC SLIGHT; MICROCYTOSIS SLIGHT; PLATELET ESTIMATE NORMAL (NORMAL); POIKILOCYTOSIS SLIGHT
[2018-04-17 09:51] LABS: OVALOCYTES SLIGHT; POLYCHROMIC SLIGHT; TEARDROP CELLS SLIGHT
--- NOTE | 2018-04-17 14:58 | CP.PCM.PN ---
Subjective - Date & Time of Evaluation Date of Evaluation: 04/17/18 Time of Evaluation: 14:58 - Subjective Subjective: CHIEF COMPLAINTS TODAY : on tapering the steroid patient is now out of breath wheezing cough with no expectoration ROS. HEENT : N. Resp : No hemoptysis Cardio : No anginal CP, PND, orthopnea, palpitation GI : No abd.pain, n/v ,diarrhea or GI bleeding . 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 Musculoskel : No joint swelling , Derm : No rash Psych : Normal affect. Ext : No swelling ,calf pain PE. Pt. is alert awake in no distress. V.S As noted in the chart Head ,ear nose,throat and eyes : Normal. Neck : Supple with normal carotids. Lungs: Bilateral poor air entry with rhonchis at the bases Heart : S1 & S2 normal with S4. No murmur. Abd : Soft non tender with normal bowel sounds. Neuro : Moves all ext. with no localized deficit. Ext : No edema with intact pulses.Non tender calves Derm : No rashes or decubitus ulcer. LABS/RADIOLOGY: CT of the abdomen shows thickening of the descending wall ASSESSMENT/PLAN : blood sugars are elevated due to steroids. Will add long-acting insulin in the night. Continue present bronchodilators and IV antibiotics. Awaiting for whooping cough serology Objective - Vital Signs/Intake and Output Vital Signs (last 24 hours): Temp Pulse Resp BP Pulse Ox 98.2 F 82 20 123/72 95 04/16/18 23:20 04/16/18 23:20 04/16/18 23:20 04/17/18 09:32 04/16/18 23:20 Intake and Output: 04/17/18 04/17/18 11:59 23:59 Intake Total 250 Balance 250 - Medications Medications: Current Medications Albuterol/Ipratropium (Duoneb 3 Mg/0.5 Mg (3 Ml) Ud) 3 ml INH RQ4 [facility] Last Admin: 04/17/18 11:31 Dose: 3 ml Aspirin (Ecotrin) 81 mg PO DAILY [facility] Last Admin: 04/17/18 09:32 Dose: 81 mg Ergocalciferol (Drisdol 50,000 Intl Units Cap) 1 cap PO QWK [facility] Last Admin: 04/14/18 10:32 Dose: 1 cap Famotidine (Pepcid) 20 mg PO BID [facility] Last Admin: 04/17/18 09:32 Dose: 20 mg Furosemide (Lasix) 40 mg IVP DAILY [facility] Last Admin: 04/17/18 09:32 Dose: 40 mg Ferric Sodium Gluconate Complex 125 mg/ Sodium Chloride 110 mls @ 110 mls/hr IVPB DAILY [facility] Stop: 04/19/18 15:01 Last Admin: 04/17/18 09:31 Dose: 110 mls/hr Azithromycin 250 mg/ Sodium (Chloride) 250 mls @ 250 mls/hr IVPB Q24H [facility]; P rotocol Last Admin: 04/17/18 02:18 Dose: 250 mls/hr Insulin Glargine (Lantus) 25 unit SC [facility] Last Admin: 04/16/18 21:27 Dose: 25 units Insulin Human Regular (Novolin R) 0 unit SC [facility]; Protocol Last Admin: 04/17/18 12:48 Dose: 6 units Methylprednisolone (Solu-Medrol) 30 mg IV Q6 [facility] Last Admin: 04/17/18 12:49 Dose: 30 mg Metoprolol Tartrate (Lopressor) 25 mg PO BID [facility] Last Admin: 04/17/18 09:32 Dose: 25 mg Repaglinide (Prandin) 2 mg PO DAILY [facility] Last Admin: 04/17/18 09:32 Dose: 2 mg Rosuvastatin Calcium (Crestor) 20 mg PO HS [facility] Last Admin: 04/16/18 21:26 Dose: 20 mg Sacubitril/Valsartan (Entresto 24 Mg-26 Mg) 1 tab PO DAILY [facility] Last Admin: 04/17/18 09:32 Dose: 1 tab Ticagrelor (Brilinta) 90 mg PO BID [facility] Last Admin: 04/17/18 09:32 Dose: 90 mg - Labs Labs: 04/17/18 08:04 04/17/18 08:04 PT 12.9 SECONDS (9.7-12.2) H 04/08/18 07:42 INR 1.2 04/08/18 07:42 APTT 30 SECONDS (21-34) 04/08/18 07:42
--- NOTE | 2018-04-17 15:49 | CP.PCM.PN ---
Subjective - Date & Time of Evaluation Date of Evaluation: 04/17/18 Time of Evaluation: 15:49 - Subjective Subjective: CHIEF COMPLAINTS TODAY : AFEBRILE. FEELING BETTER SITTING ON SIDE OF BED PT ON DROPLET PRECAUTION FOR R/O PERTUSSIS AT BEDSIDE. ON IV IRON INFUSION DAILY ROS. HEENT : N. Resp : No hemoptysis +VE COUGH/+VE WHEEZE Cardio : No anginal CP, PND, orthopnea, palpitation GI : No abd.pain, n/v ,diarrhea or GI bleeding . 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 Musculoskel : No joint swelling , Derm : No rash Psych : Normal affect. Ext : No swelling ,calf pain PE. Pt. is alert awake in no distress. V.S As noted in the chart Head ,ear nose,throat and eyes : Normal. Neck : Supple with normal carotids. Lungs: LESS B/L EXPIRATORY WHEEZE Heart : S1 & S2 normal with S4. No murmur. Abd : Soft non tender with normal bowel sounds. Neuro : Moves all ext. with no localized deficit. Ext : No edema with intact pulses.Non tender calves Derm : No rashes or decubitus ulcer. LABS/RADIOLOGY: REVIEWED WBC 12.1 H/H 9.0. CXR 04/13 NAD. CREAT 1.4/BUN 42. LEGIONELLA URINE AG -VE MYCOPLASMA IGM -VE CT of the abdomen shows thickening of the descending wall +VE COLITIS STOOLS -VE OB Objective - Vital Signs/Intake and Output Vital Signs (last 24 hours): Temp Pulse Resp BP Pulse Ox 98.2 F 82 20 123/72 95 04/16/18 23:20 04/16/18 23:20 04/16/18 23:20 04/17/18 09:32 04/16/18 23:20 Intake and Output: 04/17/18 04/17/18 06:59 18:59 Intake Total 570 Balance 570 - Medications Medications: Current Medications Albuterol/Ipratropium (Duoneb 3 Mg/0.5 Mg (3 Ml) Ud) 3 ml INH RQ4 [facility] Last Admin: 04/17/18 11:31 Dose: 3 ml Aspirin (Ecotrin) 81 mg PO DAILY [facility] Last Admin: 04/17/18 09:32 Dose: 81 mg Ergocalciferol (Drisdol 50,000 Intl Units Cap) 1 cap PO QWK [facility] Last Admin: 04/14/18 10:32 Dose: 1 cap Famotidine (Pepcid) 20 mg PO BID [facility] Last Admin: 04/17/18 09:32 Dose: 20 mg Furosemide (Lasix) 40 mg IVP DAILY [facility] Last Admin: 04/17/18 09:32 Dose: 40 mg Ferric Sodium Gluconate Complex 125 mg/ Sodium Chloride 110 mls @ 110 mls/hr IVPB DAILY [facility] Stop: 04/19/18 15:01 Last Admin: 04/17/18 09:31 Dose: 110 mls/hr Azithromycin 250 mg/ Sodium (Chloride) 250 mls @ 250 mls/hr IVPB Q24H [facility]; Protocol Last Admin: 04/17/18 02:18 Dose: 250 mls/hr Insulin Glargine (Lantus) 25 unit SC [facility] Last Admin: 04/16/18 21:27 Dose: 25 units Insulin Human Regular (Novolin R) 0 unit SC [facility]; Protocol Last Admin: 04/17/18 12:48 Dose: 6 units Methylprednisolone (Solu-Medrol) 30 mg IV Q12 [facility] Metoprolol Tartrate (Lopressor) 25 mg PO BID [facility] Last Admin: 04/17/18 09:32 Dose: 25 mg Repaglinide (Prandin) 2 mg PO DAILY [facility] Last Admin: 04/17/18 09:32 Dose: 2 mg Rosuvastatin Calcium (Crestor) 20 mg PO HS [facility] Last Admin: 04/16/18 21:26 Dose: 20 mg Sacubitril/Valsartan (Entresto 24 Mg-26 Mg) 1 tab PO DAILY [facility] Last Admin: 04/17/18 09:32 Dose: 1 tab Ticagrelor (Brilinta) 90 mg PO BID [facility] Last Admin: 04/17/18 09:32 Dose: 90 mg - Labs Labs: 04/17/18 08:04 04/17/18 08:04 PT 12.9 SECONDS (9.7-12.2) H 04/08/18 07:42 INR 1.2 04/08/18 07:42 APTT 30 SECONDS (21-34) 04/08/18 07:42 Assessment and Plan (1) Chr obstructive pulmonary disease w/ acute lower respiratory infxn Assessment & Plan: CXR REPEAT NOTED -NAD PT S/P Dtap -no side-effects. CONTINUE iv ZITHROMAX 500 MG LOADING DOSE, F/U iv zITHROMAX 250 MG ONCE A DAY DAILY X5 DAYS. DROPLET PRECAUTIONS FOR PERTUSSIS F/U SEROLOGY FOR PERTUSSIS. P. PT LIVES WITH HER ONLY . TO F/U WITH PMD FOR ZITHROMAX PROPHYLAXIS EMPIRICALLY. Status: Acute (2) Chronic congestive heart failure Status: Acute (3) Anemia Status: Acute (4) Colitis Status: Acute (5) HTN (hypertension) Status: Acute (6) DM type 2 (diabetes mellitus, type 2) Status: Acute
[2018-04-17 18:29] LABS: FHA IGA 229 IU/mL; FHA IGG 62 IU/mL; PT IGG 52 IU/mL
[2018-04-17] MEDS: (Lantus) Insulin Glargine, Recombinant SC SCH (22:35)
[2018-04-18] MEDS ORDERED: (Novolin R) Insulin Human Regular 100 units/ml vial SC ONE (02:26)
[2018-04-18] MEDS: Azithromycin 250 MG in Sodium Chloride 0.9% 250 ML IVPB SCH (02:35)
[2018-04-18] MEDS: Albuterol-Ipratrop 3 mg / 0.5 (3 ml) UD INH SCH ×4 (03:29→16:17)
[2018-04-18] MEDS: (Novolin R) Insulin Human Regular 100 units/ml vial SC SCH ×2 (08:28→12:13)
[2018-04-18 09:18] VITALS: PULSE 77
[2018-04-18] MEDS: Sacubitril/Valsartan 24-26mg Tab PO SCH (10:40)
[2018-04-18] MEDS: MethylPREDNISolone 40 mg Vial IV SCH (10:42)
[2018-04-18] MEDS: Ferric Sodium Gluconat Complex 125 MG in Sodium Chloride 0.9% 100 ML IVPB SCH (12:44)
--- NOTE | 2018-04-18 14:09 | CP.PCM.DIS ---
Provider - Provider Date of Admission: 04/12/18 14:00 Attending physician: Uriah Hernández MD Time Spent in preparation of Discharge (in minutes): 35 Hospital Course - Lab Results Lab Results: Micro Results 04/08/18 07:42 Blood Blood Culture - Final NO GROWTH AFTER 5 DAYS 04/08/18 07:42 Blood Gram Stain - Final TEST NOT PERFORMED 04/08/18 07:42 Blood Blood Culture - Final NO GROWTH AFTER 5 DAYS 04/08/18 07:42 Blood Gram Stain - Final TEST NOT PERFORMED 04/11/18 07:00 Sputum Gram Stain - Final 04/11/18 07:00 Sputum Sputum Culture - Final NORMAL ORAL DANO 04/09/18 14:12 Stool Stool Culture - Final NO SALMONELLA, SHIGELLA OR CAMPYLOBACTER ISOLATED. 04/09/18 03:18 Naris MRSA Culture (Admit) - Final MRSA NOT DETECTED Most Recent Lab Values WBC 15.7 K/uL (4.8-10.8) H 04/17/18 08:04 RBC 4.15 Mil/uL (3.80-5.20) 04/17/18 08:04 Hgb 10.3 g/dL (11.0-16.0) L 04/17/18 08:04 Hct 32.0 % (34.0-47.0) L 04/17/18 08:04 MCV 77.1 fL (81.0-99.0) L 04/17/18 08:04 MCH 24.9 pg (27.0-31.0) L 04/17/18 08:04 MCHC 32.3 g/dL (33.0-37.0) L 04/17/18 08:04 RDW 20.4 % (11.5-14.5) H 04/17/18 08:04 Plt Count 149 K/uL (130-400) 04/17/18 08:04 MPV 10.4 fL (7.2-11.7) 04/17/18 08:04 Neut % (Auto) 92.3 % (50.0-75.0) H 04/17/18 08:04 Lymph % (Auto) 3.1 % (20.0-40.0) L 04/17/18 08:04 Will % (Auto) 4.2 % (0.0-10.0) 04/17/18 08:04 Eos % (Auto) 0.0 % (0.0-4.0) 04/17/18 08:04 Baso % (Auto) 0.4 % (0.0-2.0) 04/17/18 08:04 Neut # (Auto) 14.5 K/uL (1.8-7.0) H 04/17/18 08:04 Lymph # (Auto) 0.5 K/uL (1.0-4.3) L 04/17/18 08:04 Will # (Auto) 0.7 K/uL (0.0-0.8) 04/17/18 08:04 Eos # (Auto) 0.0 K/uL (0.0-0.7) 04/17/18 08:04 Baso # (Auto) 0.1 K/uL (0.0-0.2) 04/17/18 08:04 Neutrophils % (Manual) 90 % (50-75) H 04/17/18 08:04 Band Neutrophils % 2 % (0-2) 04/17/18 08:04 Lymphocytes % (Manual) 3 % (20-40) L 04/17/18 08:04 Monocytes % (Manual) 5 % (0-10) 04/17/18 08:04 Nucleated RBC % 1 % (0-0) H 04/17/18 08:04 Differential Comment 04/07/18 15:24 Platelet Estimate Normal (NORMAL) 04/17/18 08:04 Polychromasia Slight 04/17/18 08:04 Hypochromasia (manual) Slight 04/17/18 08:04 Poikilocytosis (manual Slight 04/17/18 08:04 Basophilic Stippling Slight 04/11/18 08:16 Anisocytosis (manual) Moderate 04/17/18 08:04 Microcytosis (manual) Slight 04/17/18 08:04 Macrocytosis (manual) Slight 04/17/18 08:04 Target Cells Slight 04/15/18 07:52 Tear Drop Cells Slight 04/17/18 08:04 Ovalocytes Slight 04/17/18 08:04 Schistocytes Slight 04/10/18 08:46 ESR 16 mm/hr (0-20) 04/09/18 06:33 PT 12.9 SECONDS (9.7-12.2) H 04/08/18 07:42 INR 1.2 04/08/18 07:42 APTT 30 SECONDS (21-34) 04/08/18 07:42 Sodium 136 mmol/L (132-148) 04/17/18 08:04 Potassium 4.0 mmol/L (3.6-5.2) 04/17/18 08:04 Chloride 98 mmol/L (98-107) 04/17/18 08:04 Carbon Dioxide 30 mmol/L (22-30) 04/17/18 08:04 Anion Gap 12 (10-20) 04/17/18 08:04 BUN 44 mg/dL (7-17) H 04/17/18 08:04 Creatinine 1.4 mg/dL (0.7-1.2) H 04/17/18 08:04 Est GFR ( Amer) 43 04/17/18 08:04 Est GFR (Non-Af Amer) 36 04/17/18 08:04 POC Glucose (mg/dL) 193 mg/dL (65-110) H 04/18/18 11:49 Random Glucose 221 mg/dL (65-105) H 04/17/18 08:04 Calcium 9.2 mg/dl (8.6-10.4) 04/17/18 08:04 Phosphorus 3.6 mg/dL (2.5-4.5) 04/08/18 07:50 Magnesium 2.3 mg/dL (1.6-2.3) 04/17/18 08:04 Iron 24 ug/dL (37-170) L 04/10/18 07:46 TIBC 355 ug/dL (250-450) 04/10/18 07:46 % Saturation 7 (20-55) L 04/10/18 07:46 Ferritin 26.0 ng/mL 04/10/18 07:46 Total Bilirubin 0.4 mg/dL (0.2-1.3) 04/17/18 08:04 AST 26 U/L (14-36) 04/17/18 08:04 ALT 35 U/L (9-52) 04/17/18 08:04 Alkaline Phosphatase 62 U/L (38-126) 04/17/18 08:04 Total Creatine Kinase 186 U/L (30-135) H 04/08/18 16:35 CK-MB (Mass) 3.16 ng/mL (0.0-3.38) 04/08/18 16:35 Troponin I 0.0230 ng/mL (0.00-0.120) 04/08/18 16:35 C-Reactive Protein 21.30 mg/L (0.0-9.9) H 04/09/18 06:33 NT-Pro-B Natriuret Pep 35091 pg/mL (0-900) H 04/13/18 07:37 Total Protein 5.6 g/dL (6.3-8.3) L 04/17/18 08:04 Albumin 3.1 g/dL (3.5-5.0) L 04/17/18 08:04 Globulin 2.5 gm/dL (2.2-3.9) 04/17/18 08:04 Albumin/Globulin Ratio 1.2 (1.0-2.1) 04/17/18 08:04 Lipase 201 U/L (23-300) 04/07/18 15:24 Urine Color Yellow (YELLOW) 04/07/18 17:51 Urine Clarity Clear (Clear) 04/07/18 17:51 Urine pH 5.0 (5.0-8.0) 04/07/18 17:51 Ur Specific [place] 1.008 (1.003-1.030) 04/07/18 17:51 Urine Protein Negative mg/dL (NEGATIVE) 04/07/18 17:51 Urine Glucose (UA) Normal mg/dL (Normal) 04/07/18 17:51 Urine Ketones Negative mg/dL (NEGATIVE) 04/07/18 17:51 Urine Blood 2+ (NEGATIVE) H 04/07/18 17:51 Urine Nitrate Negative (NEGATIVE) 04/07/18 17:51 Urine Bilirubin Negative (NEGATIVE) 04/07/18 17:51 Urine Urobilinogen Normal mg/dL (0.2-1.0) 04/07/18 17:51 Ur Leukocyte Esterase Neg Rolf/uL (Negative) 04/07/18 17:51 Urine WBC (Auto) 2 /hpf (0-5) 04/07/18 17:51 Urine RBC (Auto) 20 /hpf (0-3) H 04/07/18 17:51 Ur Squamous Epith Cells 1 /hpf (0-5) 04/07/18 17:51 Urine Bacteria Rare (<OCC) 04/07/18 17:51 Hyaline Casts 3-5 /lpf (0-2) H 04/07/18 17:51 Stool Occult Blood Negative (NEGATIVE) 04/09/18 14:12 B. pertussis IgG (PT) 52 IU/mL H 04/14/18 06:54 B. pertussis IgG (FHA) 62 IU/mL 04/14/18 06:54 B. pertussis IgA (PT) 58 IU/mL H 04/14/18 06:54 B. pertussis IgA (FHA) 229 IU/mL H 04/14/18 06:54 Ur L.pneumophila Ag Negative (NEGATIVE) 04/09/18 03:18 Mycoplasma pneumon IgM Negative (NEGATIVE) 04/09/18 06:33 - Hospital Course Hospital Course: For the last few days patient has been complaining of cough expectoration white to yellowish with increasing wheezing symptoms increase in intensity and severity patient became short of breath at rest. Patient presented to [facility] Emergency Room found to have acute COPD with exacerbation and possible respiratory infection the proBNP was elevated at 29,000 chest x-ray did not show any acute infiltrate. Few days ago patient had lower abdominal pain was seen by local MD and was prescribed Flagyl for possible diverticulitis. CT of the abdomen with oral contrast did not revealed any diverticulitis. PAST HIST. Patient has history of ischemic cardiomyopathy with left antegrade ejection fraction of less than 30%. 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 Patient was admitted on the telemetry bed. Serial enzymes were negative for myocardial injury. BNP decreased in number to 12,004 discharge with IV Lasix Patient was given IV antibiotics and IV steroids and bronchodilators. Patient improved on above therapy patient still has occasional wheezing which will be controlled at home on nebulizer and inhalers and a short course of prednisone. Septic workup was negative. Hemoglobin dropped down as low as 8 g. Patient received 3 days of IV iron, and hemoglobin was 9.2 before discharge. Patient will continue her home medications. Discharge Exam - Head Exam Head Exam: NORMOCEPHALIC Discharge Plan - Follow Up Plan Condition: FAIR Disposition: HOME/ ROUTINE
--- NOTE | 2018-04-18 14:09 | CP.PCM.PN ---
Subjective - Date & Time of Evaluation Date of Evaluation: 04/18/18 Time of Evaluation: 14:09 - Subjective Subjective: CHIEF COMPLAINTS TODAY : AFEBRILE. OOB FEELING BETTER AT BEDSIDE. PERTUSSIS SEROLOGY IGA, IGG -HIGHLY POSITIVE. ROS. HEENT : N. Resp : No hemoptysis +VE COUGH/+VE WHEEZE Cardio : No anginal CP, PND, orthopnea, palpitation GI : No abd.pain, n/v ,diarrhea or GI bleeding . 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 Musculoskel : No joint swelling , Derm : No rash Psych : Normal affect. Ext : No swelling ,calf pain PE. Pt. is alert awake in no distress. V.S As noted in the chart Head ,ear nose,throat and eyes : Normal. Neck : Supple with normal carotids. Lungs: LESS B/L EXPIRATORY WHEEZE Heart : S1 & S2 normal with S4. No murmur. Abd : Soft non tender with normal bowel sounds. Neuro : Moves all ext. with no localized deficit. Ext : No edema with intact pulses.Non tender calves Derm : No rashes or decubitus ulcer. LABS/RADIOLOGY: REVIEWED WBC ELEVATED SECONDARY TO STEROIDS CXR 04/13 NAD. LEGIONELLA URINE AG -VE MYCOPLASMA IGM -VE Objective - Vital Signs/Intake and Output Vital Signs (last 24 hours): Temp Pulse Resp BP Pulse Ox 97.4 F L 77 18 119/72 100 04/18/18 09:16 04/18/18 09:16 04/18/18 09:16 04/18/18 10:41 04/18/18 09:16 Intake and Output: 04/18/18 04/18/18 06:59 18:59 Intake Total 700 Balance 700 - Medications Medications: Current Medications Albuterol/Ipratropium (Duoneb 3 Mg/0.5 Mg (3 Ml) Ud) 3 ml INH RQ4 [facility] Last Admin: 04/18/18 08:43 Dose: 3 ml Aspirin (Ecotrin) 81 mg PO DAILY [facility] Last Admin: 04/18/18 10:40 Dose: 81 mg Ergocalciferol (Drisdol 50,000 Intl Units Cap) 1 cap PO QWK [facility] Last Admin: 04/14/18 10:32 Dose: 1 cap Famotidine (Pepcid) 20 mg PO BID [facility] Last Admin: 04/18/18 10:41 Dose: 20 mg Furosemide (Lasix) 40 mg IVP DAILY [facility] Last Admin: 04/18/18 10:41 Dose: 40 mg Ferric Sodium Gluconate Complex 125 mg/ Sodium Chloride 110 mls @ 110 mls/hr IVPB DAILY [facility] Stop: 04/19/18 15:01 Last Admin: 04/18/18 12:44 Dose: 110 mls/hr Azithromycin 250 mg/ Sodium (Chloride) 250 mls @ 250 mls/hr IVPB Q24H [facility]; Protocol Last Admin: 04/18/18 02:35 Dose: 250 mls/hr Insulin Glargine (Lantus) 25 unit SC [facility] Last Admin: 04/17/18 22:35 Dose: 25 units Insulin Human Regular (Novolin R) 0 unit SC [facility]; Protocol Last Admin: 04/18/18 12:13 Dose: 2 units Methylprednisolone (Solu-Medrol) 30 mg IV Q12 [facility] Last Admin: 04/18/18 10:42 Dose: 30 mg Metoprolol Tartrate (Lopressor) 25 mg PO BID [facility] Last Admin: 04/18/18 10:41 Dose: 25 mg Repaglinide (Prandin) 2 mg PO DAILY [facility] Last Admin: 04/18/18 10:40 Dose: 2 mg Rosuvastatin Calcium (Crestor) 20 mg PO [facility] Last Admin: 04/17/18 22:38 Dose: 20 mg Sacubitril/Valsartan (Entresto 24 Mg-26 Mg) 1 tab PO DAILY [facility] Last Admin: 04/18/18 10:40 Dose: 1 tab Ticagrelor (Brilinta) 90 mg PO BID [facility] Last Admin: 04/18/18 10:40 Dose: 90 mg - Labs Labs: 04/17/18 08:04 04/17/18 08:04 PT 12.9 SECONDS (9.7-12.2) H 04/08/18 07:42 INR 1.2 04/08/18 07:42 APTT 30 SECONDS (21-34) 04/08/18 07:42 Assessment and Plan (1) Pertussis pneumonia Assessment & Plan: patient already treated with iv Zithromax x 5days continue by mouth Zithromax 250 OD daily for 5 days more. Tapering steroids as per PMD. Patient to see his M.D. for dTAP VACCINE. AND BY MOUTH ZITHROMAX FOR 5 DAYS FOR PROPHYLAXIS AGAINST PERTUSSIS. CASE DISCUSSED WITH PMD AND STAFF. CASE DISCUSSED WITH THE WHO WAS AT THE BEDSIDE.. Status: Acute (2) Chr obstructive pulmonary disease w/ acute lower respiratory infxn Status: Acute (3) Chronic congestive heart failure Status: Acute (4) Anemia Status: Acute (5) Colitis Status: Acute (6) HTN (hypertension) Status: Acute (7) DM type 2 (diabetes mellitus, type 2) Status: Acute
--- NOTE | 2018-04-18 15:30 | CP.PCM.PN ---
Subjective - Date & Time of Evaluation Date of Evaluation: 04/18/18 Time of Evaluation: 15:30 - Subjective Subjective: PT CLEARED FOR D/C PER DR. MART AND DR. ELLIS. PT TO COMPLETE PREDNISONE AND ZITHROMAX PO. RX ALSO GIVEN FOR NEB TX. PT AND TO F/U WITH DR. MART IN HIS OFFICE NEXT WEEK. SEE BELOW FOR D/C INSTRUCTIONS PROVIDED TO THE PT. - Y ESPOSO SON PARA SEGUIR CON EL DR. MART EN LA OFICINA LA PRXIMA SEMANA --- LLAME A LA OFICINA PARA HACER MATHIS RYAN. -CONTINUAR LOS MEDICAMENTOS CASEROS TARAS HABITUALMENTE. -NUEVAS PRESCRIPCIONES INCLUYEN 1) ZITHROMAX 250MG (ANTIBITICO) - TOME 1 TABLETA POR BOCA MIKA VEZ AL DA POR 4 AUGUSTE MS (COMIENZA [facility], 04/19/18). 2) PREDNISONE 10 MG (ESTEROIDE PARA MATHIS RESPIRACIN) - TOME 1 TABLETA POR BOCA MIKA VEZ AL DA GAYATHRI 10 AUGUSTE MS (COMIENZE EL [facility], 04/19/18). 3) FLORASTOR 250 MG (PROBITICO PARA MATHIS ESTMAGO MIENTRAS EST EN LOS NUEVOS MEDICAMENTOS) - TOME 1 CPSULA POR VA BOCA DOS AUGUSTE (MAANA Y NOCHE). 4) VITAMINA D: MOI 1 CPSULA MIKA VEZ POR SEMANA. 5) DUONEB (TRATAMIENTO RESPIRATORIO) - USE CADA 4 HORAS SLO SI TIENE DIFICULTAD DE RESPIRAR O SORTIJA; SI TE SIENTES JOSE, NO LO HACES TIENE QUE UTILIZAR ANNIKA MEDICAMENTO. 6) PEPCID 20 MG (PARA MATHIS ESTMAGO) - TOME 1 TABLETA POR LA BOCA DOS VECES AL DA. -Para otras inquietudes o preguntas, contctese con el DR. NEHA AKERS. -YOU AND YOUR ARE TO FOLLOW UP WITH DR. MART IN THE OFFICE NEXT WEEK---CALL THE OFFICE TO MAKE YOUR APPOINTMENT. -CONTINUE HOME MEDICATIONS USUAL. -NEW PRESCRIPTIONS INCLUDE 1) ZITHROMAX 250MG (ANTIBIOTIC)--TAKE 1 TABLET BY MOUTH ONCE A DAY FOR 4 MORE DAYS (START ON 04/19/18). 2) PREDNISONE 10 MG (STEROID FOR YOUR BREATHING)--TAKE 1 TABLET BY MOUTH ONCE A DAY FOR 10 MORE DAYS (START ON 04/19/18). 3) FLORASTOR 250 MG (PROBIOTIC FOR YOUR STOMACH WHILE ON THE NEW MEDICATIONS)--TAKE 1 CAPSULE BY MOUTH TWICE 1 DAY (MORNING AND EVENING). 4) VITAMIN D--TAKE 1 CAPSULE ONCE A WEEK. 5) DUONEB (BREATHING TREATMENT)--USE EVERY 4 HOURS ONLY IF YOU HAVE SHORTNESS OF BREATH OR WHEEZING; IF YOU FEEL FINE, YOU DO NOT HAVE TO USE THIS MEDICATION. 6) PEPCID 20 MG (FOR YOUR STOMACH)--TAKE 1 TABLET BY MOUTH TWICE A DAY. -FOR FURTHER CONCERNS OR QUESTIONS, CONTACT DR. MART'S OFFICE. Objective - Vital Signs/Intake and Output Vital Signs (last 24 hours): Temp Pulse Resp BP Pulse Ox 97.4 F L 77 18 119/72 100 04/18/18 09:16 04/18/18 09:16 04/18/18 09:16 04/18/18 10:41 04/18/18 09:16 Intake and Output: 04/18/18 04/18/18 06:59 18:59 Intake Total 700 Balance 700 - Medications Medications: Current Medications Albuterol/Ipratropium (Duoneb 3 Mg/0.5 Mg (3 Ml) Ud) 3 ml INH RQ4 [facility] Last Admin: 04/18/18 08:43 Dose: 3 ml Aspirin (Ecotrin) 81 mg PO DAILY [facility] Last Admin: 04/18/18 10:40 Dose: 81 mg Ergocalciferol (Drisdol 50,000 Intl Units Cap) 1 cap PO QWK [facility] Last Admin: 04/14/18 10:32 Dose: 1 cap Famotidine (Pepcid) 20 mg PO BID [facility] Last Admin: 04/18/18 10:41 Dose: 20 mg Furosemide (Lasix) 40 mg IVP DAILY [facility] Last Admin: 04/18/18 10:41 Dose: 40 mg Ferric Sodium Gluconate Complex 125 mg/ Sodium Chloride 110 mls @ 110 mls/hr IVPB DAILY [facility] Stop: 04/19/18 15:01 Last Admin: 04/18/18 12:44 Dose: 110 mls/hr Azithromycin 250 mg/ Sodium (Chloride) 250 mls @ 250 mls/hr IVPB Q24H [facility]; Protocol Last Admin: 04/18/18 02:35 Dose: 250 mls/hr Insulin Glargine (Lantus) 25 unit SC HS [facility] Last Admin: 04/17/18 22:35 Dose: 25 units Insulin Human Regular (Novolin R) 0 unit SC ACHS [facility]; Protocol Last Admin: 04/18/18 12:13 Dose: 2 units Methylprednisolone (Solu-Medrol) 30 mg IV Q12 [facility] Last Admin: 04/18/18 10:42 Dose: 30 mg Metoprolol Tartrate (Lopressor) 25 mg PO BID [facility] Last Admin: 04/18/18 10:41 Dose: 25 mg Repaglinide (Prandin) 2 mg PO DAILY [facility] Last Admin: 04/18/18 10:40 Dose: 2 mg Rosuvastatin Calcium (Crestor) 20 mg PO HS [facility] Last Admin: 04/17/18 22:38 Dose: 20 mg Sacubitril/Valsartan (Entresto 24 Mg-26 Mg) 1 tab PO DAILY [facility] Last Admin: 04/18/18 10:40 Dose: 1 tab Ticagrelor (Brilinta) 90 mg PO BID [facility] Last Admin: 04/18/18 10:40 Dose: 90 mg - Labs Labs: 04/17/18 08:04 04/17/18 08:04 PT 12.9 SECONDS (9.7-12.2) H 04/08/18 07:42 INR 1.2 04/08/18 07:42 APTT 30 SECONDS (21-34) 04/08/18 07:42
[2018-04-18 15:57] VITALS: BP 98/62; RESP 20; TEMP 98; O2SAT 96
== END 2018-04-18 17:09 | disposition home or self-care (01) | DRG 190 ==
LOC: C.ER 14:12 → C.9E 16:29 → C.6T 16:46 → OBSVTOIN 04-12 14:00 → C.9E 04-12 16:29 → C.6T 04-12 16:46
PROVIDERS: ADMIT Internal Medicine Cardiovascular Disease; ATTEND Internal Medicine Cardiovascular Disease
DX: J44.1 Chronic obstructive pulmonary disease with (acute) exacerbation (principal); I50.23 Acute on chronic systolic (congestive) heart failure; A37.91 Whooping cough, unspecified species with pneumonia; I11.0 Hypertensive heart disease with heart failure; I25.10 Atherosclerotic heart disease of native coronary artery without angina pectoris; I25.5 Ischemic cardiomyopathy; E09.9 Drug or chemical induced diabetes mellitus without complications; Z79.4 Long term (current) use of insulin; E11.9 Type 2 diabetes mellitus without complications; E78.00 Pure hypercholesterolemia, unspecified; D69.6 Thrombocytopenia, unspecified; Z86.73 Personal history of transient ischemic attack (TIA), and cerebral infarction without residual deficits; Z95.0 Presence of cardiac pacemaker; K52.9 Noninfective gastroenteritis and colitis, unspecified; K57.90 Diverticulosis of intestine, part unspecified, without perforation or abscess without bleeding; Z95.5 Presence of coronary angioplasty implant and graft

== ENCOUNTER 2018-06-23 20:18 | Inpatient (IN) | payer MEDICARE ==
[2018-06-23 20:19] VITALS: BMI 25.5
--- NOTE | 2018-06-23 20:22 | C.PDOC ---
History Of Present Illness Patient with Hx of COPD, CAD with LED stent, ejection fraction of 20%, presents to the ER via EMS with a complaint of SOB that began earlier today. She is currently speaking in 1-3 word sentences. Denies chest pain. Time Seen by Provider: 06/23/18 20:22 Chief Complaint (Nursing): Abdominal Pain History Per: Patient History/Exam Limitations: no limitations Onset/Duration Of Symptoms: Hrs Current Symptoms Are (Timing): Still Present Severity: Severe Pain Scale Rating Of: 8 Radiation Of Pain To:: None Quality Of Discomfort: Unable To Describe Associated Symptoms: denies: Chest Pain Exacerbating Factors: None Alleviating Factors: None Recent travel outside of the [place]: No Abnormal Vaginal Bleeding: No Past Medical History Reviewed: Historical Data, Nursing Documentation, Vital Signs - Medical History PMH: Anemia, Anxiety, Arthritis, Asthma, Cardia Arrhythmia, CHF, COPD, Diabetes, HTN, Hypercholesterolemia, TIA Denies: Chronic Kidney Disease Surgical History: Appendectomy, Coronary Stent, Endoscopy, Pacemaker (2015) - [email or web address] Procedures ASSISTANCE WITH RESPIRATORY VENTILATION, 24-96 HRS, CPAP (06/15/17) ASSISTANCE WITH RESPIRATORY VENTILATION, <24 HRS, CPAP (02/06/16) ESOPHAGOGASTRODUODENOSCOPY [EGD] W/CLOSED BIOPSY (12/30/14) LEFT HEART CARDIAC CATH (10/19/13) LT HEART ANGIOCARDIOGRAM (10/19/13) MEASURE OF CARDIAC SAMPL & PRESSURE, L HEART, PERC APPROACH (05/21/15) PACKED CELL TRANSFUSION (12/30/14) PLAIN RADIOGRAPHY OF MULT COR ART USING OTH CONTRAST (05/21/15) TRANSFUSE NONAUT RED BLOOD CELLS IN PERIPH VEIN, PERC (02/06/16) Family History: States: No Known Family Hx - Social History Hx Tobacco Use: No Hx Alcohol Use: No Hx Substance Use: No - Immunization History Hx Tetanus Toxoid Vaccination: No Hx Influenza Vaccination: Yes Hx Pneumococcal Vaccination: Yes Review Of Systems Review Of Systems: ROS cannot be obtained secondary to pt's inabilty to answer questions. Physical Exam - Physical Exam Appears: In Acute Distress, Other (Severe discomfort) Skin: Warm, Dry Head: Normacephalic Eye(s): bilateral: Normal Inspection Oral Mucosa: Moist Throat: No Erythema, No Exudate Neck: Trachea Midline, Supple Chest: Other (Pacemaker defibrillator to left side) Cardiovascular: Rhythm Regular (Tachycardic) Respiratory: Decreased Breath Sounds, No Rales, Rhonchi (at bases), No Wheezing Gastrointestinal/Abdominal: Soft, No Tenderness Back: No CVA Tenderness Extremity: Normal ROM Extremity: Bilateral: Atraumatic, Normal Color And Temperature, Normal ROM Pulses: Left Dorsalis Pedis: Normal, Right Dorsalis Pedis: Normal Neurological/Psych: Oriented x3 Gait: Unable To Assess ED Course And Treatment - Laboratory Results Result Diagrams: 06/23/18 20:31 06/23/18 20:31 ECG: Interpreted By Me, Viewed By Me ECG Rhythm: Sinus Rhythm (100), Nonspecific Changes (ivcd, occ pvc's unchanged from 04/08/18) Progress Note: EKG, blood work, and CXR ordered. Albuterol nebulizer and solumedrol administered. Critical Care Time - Critical Care Note Total Time (in mins): 30 Documented critical care: time excludes all time spent performing seperately billable procedures. Disposition Discussed With : Uriah Hernández Comment: accepted the pt on his service and took over the care at 9:22 PM Doctor Will See Patient In The: Hospital Counseled Patient/Family Regarding: Studies Performed, Diagnosis - Disposition Disposition: HOSPITALIZED Disposition Time: 20:22 Condition: GUARDED Forms: [facility] (Nicaraguan) - POA Present On Arrival: Poor Glycemic Control - Clinical Impression Clinical Impression: CHF exacerbation, Respiratory distress, COPD exacerbation - Scribe Statement The provider has reviewed the documentation as recorded by the Scribe Derek Laws All medical record entries made by the Scribe were at my direction and personally dictated by me. I have reviewed the chart and agree that the record accurately reflects my personal performance of the history, physical exam, medical decision making, and the department course for this patient. I have also personally directed, reviewed, and agree with the discharge instructions and disposition. Decision To Admit - Pt Status Changed To: Hospital Disposition Of: Inpatient - Admit Certification Admit to Inpatient:: After my assessment, the patient will require hospitalization for at least two midnights. This is because of the severity of symptoms shown, intensity of services needed, and/or the medical risk in this patient being treated as an outpatient. - InPatient: Physician Admission Certification:: After my assessment, the patient will require hospitalization for at least two midnights. This is because of the severity of symptoms shown, intensity of services needed, and/or the medical risk in this patient being treated as an outpatient. - . Bed Request Type: Telemetry Admitting Physician: Uriah Hernández Patient Diagnosis: CHF exacerbation, Respiratory distress, COPD exacerbation
[2018-06-23] MEDS ORDERED: Albuterol-Ipratrop 3 mg / 0.5 (3 ml) UD IH SCH (20:30)
[2018-06-23 20:34] LABS: BASO # 0.1 K/uL (0.0-0.2); BASO % 1.2 % (0.0-2.0); EOS # 0.3 K/uL (0.0-0.7); EOS % 4.8 % (0.0-4.0); HEMOGLOBIN 11.6 g/dL (11.0-16.0); LYMPH # 1.1 K/uL (1.0-4.3); LYMPH % 18.7 % (20.0-40.0); MEAN CORPUSCULAR HEMOGLOBIN 27.7 pg (27.0-31.0); MEAN CORPUSCULAR HGB CONC 31.8 g/dL (33.0-37.0); MEAN PLATELET VOLUME 9.6 fL (7.2-11.7); MONO # 0.7 K/uL (0.0-0.8); MONO % 11.1 % (0.0-10.0); NEUT # 3.9 K/uL (1.8-7.0); NEUT % 64.2 % (50.0-75.0); RBC 4.2 Mil/uL (3.80-5.20); RED CELL DISTRIBUTION WIDTH 19.4 % (11.5-14.5)
[2018-06-23 20:35] LABS: MEAN CELL VOLUME 87.1 fL (81.0-99.0)
[2018-06-23 20:43] LABS: INR 1.2; PROTHROMBIN TIME 12.8 SECONDS (9.7-12.2)
[2018-06-23] MEDS ORDERED: Albuterol-Ipratrop 3 mg / 0.5 (3 ml) UD ONE (20:43)
[2018-06-23 20:55] LABS: ALB/GLOB RATIO 1.2 (1.0-2.1); ALBUMIN 3.5 g/dL (3.5-5.0); CALCIUM 9.2 mg/dl (8.6-10.4)
[2018-06-23 21:00] LABS: TROPONIN I 0.09 ng/mL (0.00-0.120)
[2018-06-23 21:14] LABS: ABG ALLEN TEST YES; ARTERIAL BLOOD GAS HCO3 22.9 mmol/L (21-28); ARTERIAL BLOOD GAS O2 SAT 99.6 % (95-98); ARTERIAL BLOOD GAS PCO2 30 mm/Hg (35-45); ARTERIAL BLOOD GAS PH 7.44 (7.35-7.45); ARTERIAL BLOOD GAS PO2 171 mm/Hg (80-100); ARTERIAL BLOOD GAS TCO2 21.3 mmol/L (22-28)
[2018-06-23] MEDS ORDERED: Albuterol-Ipratrop 3 mg / 0.5 (3 ml) UD INH PRN (21:22)
[2018-06-23] MEDS: (Novolin R) Insulin Human Regular 100 units/ml vial SC SCH (22:33)
[2018-06-24 02:06] LABS: ABG ALLEN TEST YES; ARTERIAL BLOOD GAS HCO3 24.5 mmol/L (21-28); ARTERIAL BLOOD GAS O2 SAT 96.3 % (95-98); ARTERIAL BLOOD GAS PCO2 42 mm/Hg (35-45); ARTERIAL BLOOD GAS PH 7.38 (7.35-7.45); ARTERIAL BLOOD GAS PO2 68 mm/Hg (80-100); ARTERIAL BLOOD GAS TCO2 26.1 mmol/L (22-28)
[2018-06-24 07:18] LABS: BASO # 0.1 K/uL (0.0-0.2); BASO % 1.3 % (0.0-2.0); HEMOGLOBIN 10.9 g/dL (11.0-16.0); LYMPH # 0.1 K/uL (1.0-4.3); LYMPH % 2.5 % (20.0-40.0); MEAN CELL VOLUME 87.2 fL (81.0-99.0); MEAN CORPUSCULAR HEMOGLOBIN 28.9 pg (27.0-31.0); MEAN CORPUSCULAR HGB CONC 33.1 g/dL (33.0-37.0); MEAN PLATELET VOLUME 10.3 fL (7.2-11.7); MONO # 0.1 K/uL (0.0-0.8); MONO % 1.9 % (0.0-10.0); NEUT # 5.7 K/uL (1.8-7.0); NEUT % 94.3 % (50.0-75.0); PLATELET COUNT 146 K/uL (130-400); RBC 3.79 Mil/uL (3.80-5.20); RED CELL DISTRIBUTION WIDTH 19.1 % (11.5-14.5)
[2018-06-24 07:38] LABS: ALB/GLOB RATIO 1.1 (1.0-2.1); ALBUMIN 3.2 g/dL (3.5-5.0); BILIRUBIN,DIRECT 0.5 mg/dL (0.0-0.4)
[2018-06-24 07:59] LABS: CK-MB 2.66 ng/mL (0.0-3.38); TROPONIN I 0.07 ng/mL (0.00-0.120)
[2018-06-24] MEDS: (Novolin R) Insulin Human Regular 100 units/ml vial SC SCH ×4 (08:08→21:24)
--- NOTE | 2018-06-24 08:13 | RAD ---
Date of service: 06/23/2018 PROCEDURE: CHEST RADIOGRAPH, 1 VIEW HISTORY: SOB COMPARISON: 04/13/2018. FINDINGS: LUNGS: There is moderate pulmonary venous congestion. There fluid in the minor fissure. PLEURA: No pneumothorax or large right pleural effusion. Suspect small left pleural effusion. CARDIOVASCULAR: Persistent moderate cardiomegaly. No aortic atherosclerotic calcifications present. There is stable position of left-sided AICD. OSSEOUS STRUCTURES: Within normal limits for the patient's age. VISUALIZED UPPER ABDOMEN: Normal. OTHER FINDINGS: None. IMPRESSION: Mild congestive heart failure.
[2018-06-24 08:49] LABS: ANISOCYTOSIS SLIGHT; HYPOCHROMIC SLIGHT; LYMPHOCYTE 4 % (20-40); NEUTROPHIL 96 % (50-75); PLATELET ESTIMATE NORMAL (NORMAL); TOTAL CELLS COUNTED 100
[2018-06-24 08:50] LABS: OVALOCYTES SLIGHT; POLYCHROMIC SLIGHT
[2018-06-24] MEDS ORDERED: Ranolazine 500 mg Extended Release Tablets PO SCH (10:00)
[2018-06-24] MEDS ORDERED: Potassium Chloride 20 mEq ER Tab PO ONE (10:00)
[2018-06-24] MEDS: Ranolazine 500 mg Extended Release Tablets PO SCH ×2 (10:23→17:20)
[2018-06-24] MEDS: Enoxaparin 40 mg Syringe SC SCH (10:24)
[2018-06-24] MEDS: Aspirin 325 mg EC Tablets PO SCH (10:24)
[2018-06-24] MEDS: Albuterol-Ipratrop 3 mg / 0.5 (3 ml) UD INH PRN (13:32)
--- NOTE | 2018-06-24 14:10 | CP.PCM.HP ---
History of Present Illness - History of Present Illness History of Present Illness: COMPREHENSIVE CONSULT HPI 87 years old woman with cardiopulmonary disorder complaining of shortness of breath cough expectoration for the last 2 days increase in inten sity and severity presented to [facility] ER with systolic heart failure. Patient was given Lasix nebulizer with partial improvement. PAST HIST. Patient has history of coronary artery disease with stent and ischemic cardiomyopathy with left ventricle ejection fraction of less than 30%. Patient also has a moderate mitral regurg. History of type 2 diabetes COPD and recently had an infection with pertussis. PERSONAL HIST: Smoking. N Alcohol. N Allergy N Travel_- . FAMILY HIST : ROS : Constitutional: Negative for weight change, Eyes: Negative for redness, sw elling, itching, discharge, vision changes, blurry vision, double vision, glaucoma, cataracts, Ears: Negative for hearing loss, ringing, , tinnitus, vertigo Nose: Negative for rhinorrhea, stuffiness, sniffing, itching, postnasal drip, discoloration, nasal congestion and epistaxis. Throat: Negative for throat clearing, sore throat, hoarseness, difficulty swallowing and difficulty speaking. Respiratory: Negative for hemoptysis, snoring at night, Cardiovascular: Negative for edema of legs Neurology: Negative for irritability, muscle weakness, numbness and tingling, seizures, tremors, migraines, slurred speech, syncope, mood changes, recurrent headaches Gastrointestinal: Negative for difficulty swallowing, diarrhea, constipation, black stools, rectal bleeding, nausea, flatulence, reflux, poor appetite, changes in bowel habits, abdominal pain Genitourinary: Negative for frequent urination, hematuria, discharge, incontinence, urinary retention, frequent UTI, Psychiatric: Negative for depression, anxiety/panic, suicidal tendencies, Musculoskeletal: Negative for swollen joints, back pain, , neck pain, morning stiffness of joints, . Skin: Negative for rash, ulcers, itching, dry skin and pigmented lesions. P/E: Constitutional: Appears stated age and in no apparent distress. Head: Normocephalic. Ears: External ear canals patent without inflammation. Tympanic membranes intact with normal light reflex and landmark. Eyes: Pupils are central, bilaterally equal, symmetrical and reacts to light with normal movements and no icterus or pallor. Nose: External nares are patent. Mucosa is pink Mouth-Throat: Good general appearance and condition. No post-pharyngeal/oropharyngeal erythema and tonsillar hypertrophy. Good dental hygiene. Neck-Lymphatic: Neck is supple with normal ROM, no thyromegaly, lymph nodes or masses. JVD is normal with no carotid bruit. Lungs: Bilaterally inspiratory expiratory wheezing with basal rales Cardiovascular: S1 and S2 are normal with BAUDILIO murmurs, gallops and rub. GI Exam: No hepatomegaly. Abdomen is soft and non-tender. No Organomegaly , masses or hernias are evident and bowel sounds are normal and active. Neurology: Higher function and all cranial nerves intact, with no gross motor or sensory deficit. Superficial and deep reflexes are normal with downwards planters. No cerebellar deficit with normal gait. Musculoskeletal: No tender spots with normal curvature of the spine with no swelling or restricted ROM of the small and large joints. Extremities: Homans sign absent. Intact pulses with no pitting edema, calf tenderness or skin color changes. Skin: No rash, eruptions or abnormal skin pigmentation LAB/RADIOLOGY: ASSESMENT : Acute on chronic systolic congestive heart failure with reduced ejection fraction. Coronary artery disease with stent. COPD with exacerbation rule out respiratory infection. Type 2 diabetes PLAN: See orders Present on Admission - Present on Admission Any Indicators Present on Admission: No Past Patient History - Infectious Disease Hx of Infectious Diseases: None - Tetanus Immunizations Tetanus Immunization: Unknown - Past Medical History & Family History Past Medical History?: Yes - Past Social History Smoking Status: Never Smoked - CARDIAC Hx Cardiac Disorders: Yes (CAD) Hx Hypercholesterolemia: Yes - PULMONARY Hx Chronic Obstructive Pulmonary Disease (COPD): Yes - NEUROLOGICAL Hx Transient Ischemic Attacks (TIA): Yes - HEENT Hx HEENT Problems: No - RENAL Hx Chronic Kidney Disease: No - ENDOCRINE/METABOLIC Hx Diabetes Mellitus Type 2: Yes - HEMATOLOGICAL/ONCOLOGICAL Hx Anemia: Yes - INTEGUMENTARY Hx Dermatological Problems: No - MUSCULOSKELETAL/RHEUMATOLOGICAL Hx Arthritis: Yes Hx Falls: No - GASTROINTESTINAL Hx Gastrointestinal Disorders: No - GENITOURINARY/GYNECOLOGICAL Hx Genitourinary Disorders: No - PSYCHIATRIC Hx Anxiety: Yes Hx Substance Use: No - SURGICAL HISTORY Hx Appendectomy: Yes Hx Coronary Stent: Yes - ANESTHESIA Hx Anesthesia: Yes Hx Anesthesia Reactions: No Hx Malignant Hyperthermia: No Meds Allergies/Adverse Reactions: Allergies Allergy/AdvReac Type Severity Reaction Status Date / Time clopidogrel Allergy Mild SWELLING Verified 12/22/17 13:34 Results - Vital Signs Recent Vital Signs: Last Vital Signs Temp 97.4 F L 12/07/18 08:25 Pulse 97 H 06/24/18 13:34 Resp 18 06/24/18 08:25 BP 130/72 06/24/18 10:24 Pulse Ox 100 06/24/18 08:25 - Labs Result Diagrams: 06/24/18 07:08 06/24/18 07:08 Labs: Laboratory Results - last 24 hr 06/23/18 06/23/18 06/23/18 20:31 20:31 20:31 WBC 6.0 D RBC 4.20 Hgb 11.6 Hct 36.5 MCV 87.1 D MCH 27.7 MCHC 31.8 L RDW 19.4 H Plt Count 209 MPV 9.6 Neut % (Auto) 64.2 Lymph % (Auto) 18.7 L Frontier % (Auto) 11.1 H Eos % (Auto) 4.8 H Baso % (Auto) 1.2 Neut # (Auto) 3.9 Lymph # (Auto) 1.1 Frontier # (Auto) 0.7 Eos # (Auto) 0.3 Baso # (Auto) 0.1 Neutrophils % (Manual) Lymphocytes % (Manual) Monocytes % (Manual) Platelet Estimate Polychromasia Hypochromasia (manual) Anisocytosis (manual) Ovalocytes PT 12.8 H INR 1.2 APTT 33 Puncture Site pCO2 pO2 HCO3 ABG pH ABG Total CO2 ABG O2 Saturation ABG Base Excess Candido Test ABG Potassium A-a O2 Difference Respiratory Index Glucose Lactate Vent Mode Mechanical Rate FiO2 Inspiratory BiPAP Expiratory BiPAP Sodium 138 Potassium 3.2 L Chloride 103 Carbon Dioxide 21 L Anion Gap 17 BUN 11 Creatinine 1.1 Est GFR ( Amer) 57 Est GFR (Non-Af Amer) 47 POC Glucose (mg/dL) Random Glucose 246 H Calcium 9.2 Magnesium 2.1 Total Bilirubin 0.6 Direct Bilirubin AST 75 H D ALT 41 Alkaline Phosphatase 80 Total Creatine Kinase CK-MB (Mass) Troponin I 0.0900 NT-Pro-B Natriuret Pep 52660 H Total Protein 6.4 Albumin 3.5 Globulin 2.9 Albumin/Globulin Ratio 1.2 Arterial Blood Potassium 06/23/18 06/23/18 06/24/18 21:00 22:31 01:55 WBC RBC Hgb Hct MCV MCH MCHC RDW Plt Count MPV Neut % (Auto) Lymph % (Auto) Frontier % (Auto) Eos % (Auto) Baso % (Auto) Neut # (Auto) Lymph # (Auto) Frontier # (Auto) Eos # (Auto) Baso # (Auto) Neutrophils % (Manual) Lymphocytes % (Manual) Monocytes % (Manual) Platelet Estimate Polychromasia Hypochromasia (manual) Anisocytosis (manual) Ovalocytes PT INR APTT Puncture Site Rr Rra pCO2 30 L 42 pO2 171 H 68 L HCO3 22.9 24.5 ABG pH 7.44 7.38 ABG Total CO2 21.3 L 26.1 ABG O2 Saturation 99.6 H 96.3 ABG Base Excess -2.7 L -0.4 Candido Test Yes Yes ABG Potassium 3.0 L 3.1 L A-a O2 Difference 200.0 Respiratory Index 2.9 Glucose 216 H 271 H Lactate 2.4 H 1.1 Vent Mode Bipap Mechanical Rate 12 FiO2 45.0 Inspiratory BiPAP 12 Expiratory BiPAP 6 Sodium 141.0 142.0 Potassium Chloride 109.0 H 110.0 H Carbon Dioxide Anion Gap BUN Creatinine Est GFR ( Amer) Est GFR (Non-Af Amer) POC Glucose (mg/dL) 235 H Random Glucose Calcium Magnesium Total Bilirubin Direct Bilirubin AST ALT Alkaline Phosphatase Total Creatine Kinase CK-MB (Mass) Troponin I NT-Pro-B Natriuret Pep Total Protein Albumin Globulin Albumin/Globulin Ratio Arterial Blood Potassium 3.0 L 3.1 L 06/24/18 06/24/18 06/24/18 06:24 07:08 07:08 WBC 6.0 RBC 3.79 L Hgb 10.9 L Hct 33.0 L MCV 87.2 MCH 28.9 MCHC 33.1 RDW 19.1 H Plt Count 146 MPV 10.3 Neut % (Auto) 94.3 H Lymph % (Auto) 2.5 L Frontier % (Auto) 1.9 Eos % (Auto) 0.0 Baso % (Auto) 1.3 Neut # (Auto) 5.7 Lymph # (Auto) 0.1 L Frontier # (Auto) 0.1 Eos # (Auto) 0.0 Baso # (Auto) 0.1 Neutrophils % (Manual) 96 H Lymphocytes % (Manual) 4 L Monocytes % (Manual) TEST NOT PERFORMED Platelet Estimate Normal Polychromasia Slight Hypochromasia (manual) Slight Anisocytosis (manual) Slight Ovalocytes Slight PT INR APTT Puncture Site pCO2 pO2 HCO3 ABG pH ABG Total CO2 ABG O2 Saturation ABG Base Excess Candido Test ABG Potassium A-a O2 Difference Respiratory Index Glucose Lactate Vent Mode Mechanical Rate FiO2 Inspiratory BiPAP Expiratory BiPAP Sodium 140 Potassium 3.5 L Chloride 104 Carbon Dioxide 26 Anion Gap 14 BUN 16 Creatinine 1.2 Est GFR ( Amer) 52 Est GFR (Non-Af Amer) 43 POC Glucose (mg/dL) 228 H Random Glucose 249 H Calcium 9.0 Magnesium Total Bilirubin 0.5 Direct Bilirubin 0.5 H AST 59 H D ALT 49 Alkaline Phosphatase 84 Total Creatine Kinase 58 CK-MB (Mass) 2.66 Troponin I 0.0700 NT-Pro-B Natriuret Pep Total Protein 6.0 L Albumin 3.2 L Globulin 2.8 Albumin/Globulin Ratio 1.1 Arterial Blood Potassium 06/24/18 11:28 WBC RBC Hgb Hct MCV MCH MCHC RDW Plt Count MPV Neut % (Auto) Lymph % (Auto) Frontier % (Auto) Eos % (Auto) Baso % (Auto) Neut # (Auto) Lymph # (Auto) Frontier # (Auto) Eos # (Auto) Baso # (Auto) Neutrophils % (Manual) Lymphocytes % (Manual) Monocytes % (Manual) Platelet Estimate Polychromasia Hypochromasia (manual) Anisocytosis (manual) Ovalocytes PT INR APTT Puncture Site pCO2 pO2 HCO3 ABG pH ABG Total CO2 ABG O2 Saturation ABG Base Excess Candido Test ABG Potassium A-a O2 Difference Respiratory Index Glucose Lactate Vent Mode Mechanical Rate FiO2 Inspiratory BiPAP Expiratory BiPAP Sodium Potassium Chloride Carbon Dioxide Anion Gap BUN Creatinine Est GFR ( Amer) Est GFR (Non-Af Amer) POC Glucose (mg/dL) 270 H Random Glucose Calcium Magnesium Total Bilirubin Direct Bilirubin AST ALT Alkaline Phosphatase Total Creatine Kinase CK-MB (Mass) Troponin I NT-Pro-B Natriuret Pep Total Protein Albumin Globulin Albumin/Globulin Ratio Arterial Blood Potassium
[2018-06-24 15:07] LABS: CK-MB 2.76 ng/mL (0.0-3.38); TROPONIN I 0.062 ng/mL (0.00-0.120)
[2018-06-24 17:47] LABS: ALB/GLOB RATIO 1.2 (1.0-2.1); ALBUMIN 3.4 g/dL (3.5-5.0); CALCIUM 9.1 mg/dl (8.6-10.4)
[2018-06-24] MEDS: Sacubitril/Valsartan 49-51 Tab PO SCH (19:00)
[2018-06-24 19:37] LABS: BASO % 0.2 % (0.0-2.0); EOS % 0.2 % (0.0-4.0); HEMOGLOBIN 10.3 g/dL (11.0-16.0); LYMPH # 0.5 K/uL (1.0-4.3); LYMPH % 4.1 % (20.0-40.0); MEAN CELL VOLUME 86.9 fL (81.0-99.0); MEAN CORPUSCULAR HEMOGLOBIN 27.6 pg (27.0-31.0); MEAN CORPUSCULAR HGB CONC 31.8 g/dL (33.0-37.0); MEAN PLATELET VOLUME 10.4 fL (7.2-11.7); MONO # 1.1 K/uL (0.0-0.8); MONO % 8.9 % (0.0-10.0); NEUT # 10.6 K/uL (1.8-7.0); NEUT % 86.6 % (50.0-75.0); NRBC % 0.1 % (0.0-2.0); PLATELET COUNT 149 K/uL (130-400); RBC 3.75 Mil/uL (3.80-5.20)
[2018-06-24 19:39] LABS: WHITE BLOOD COUNT 12.2 K/uL (4.8-10.8)
[2018-06-24 19:56] LABS: ANISOCYTOSIS SLIGHT; BANDS 1 % (0-2); LYMPHOCYTE 4 % (20-40); MONOCYTE 5 % (0-10); NEUTROPHIL 90 % (50-75); PLATELET ESTIMATE NORMAL (NORMAL); TOTAL CELLS COUNTED 100
[2018-06-24 19:57] LABS: HYPOCHROMIC SLIGHT; OVALOCYTES SLIGHT; POLYCHROMIC SLIGHT
--- NOTE | 2018-06-24 23:47 | CARD ---
APPROVED REPORT Date of service: 06/23/2018 EKG Measurement Heart [id number] <Conclusion> Sinus rhythm with premature ventricular complexes or fusion complexes Possible Left atrial enlargement Nonspecific intraventricular conduction delay ST & T wave abnormality, consider lateral ischemia Abnormal ECG
[2018-06-25] MEDS: (Novolin R) Insulin Human Regular 100 units/ml vial SC SCH ×4 (08:29→21:45)
[2018-06-25] MEDS: Aspirin 325 mg EC Tablets PO SCH (09:52)
[2018-06-25] MEDS: Enoxaparin 40 mg Syringe SC SCH (09:52)
[2018-06-25] MEDS: Sacubitril/Valsartan 49-51 Tab PO SCH ×2 (09:53→17:21)
[2018-06-25] MEDS: Ranolazine 500 mg Extended Release Tablets PO SCH ×2 (10:06→17:21)
--- NOTE | 2018-06-25 14:55 | CP.PCM.PN ---
Subjective - Date & Time of Evaluation Date of Evaluation: 06/25/18 Time of Evaluation: 14:53 - Subjective Subjective: CHIEF COMPLAINTS TODAY : PT. FEELS WEAK AND SOB SYSTOLIC BP IS LOW ROS. HEENT : N. Resp : No hemoptysis Cardio : No anginal CPGI : No abd.pain, n/v ,diarrhea or GI bleeding . SECURITY ATTENDANT : No headache, vertigo, focal deficit. Musculoskel : No joint swelling , Derm : No rash Psych : Normal affect. Ext : No swelling ,calf pain PE. Pt. is alert awake in no distress. V.S As noted in the chart Head ,ear nose,throat and eyes : Normal. Neck : Supple with normal carotids. Lungs: POOR AIR ENTRY WITH WHEEZING Heart : S1 & S2 normal with S4. No murmur. Abd : Soft non tender with normal bowel sounds. Neuro : Moves all ext. with no localized deficit. Ext : No edema with intact pulses.Non tender calves Derm : No rashes or decubitus ulcer. LABS/RADIOLOGY: ASSESSMENT/PLAN : HOLD BP MEDS CONT IV LASIX, CHF IMPROVING Objective - Vital Signs/Intake and Output Vital Signs (last 24 hours): Temp Pulse Resp BP Pulse Ox 98.0 F 97 H 24 86/53 L 100 06/25/18 07:00 06/25/18 14:15 06/25/18 14:15 06/25/18 14:15 06/25/18 07:00 Intake and Output: 06/25/18 06/25/18 11:59 23:59 Intake Total 300 Balance 300 - Medications Medications: Current Medications Albuterol/Ipratropium (Duoneb 3 Mg/0.5 Mg (3 Ml) Ud) 3 ml INH RQ4 PRN PRN Reason: Shortness of Breath Last Admin: 06/24/18 13:32 Dose: 3 ml Aspirin (Ecotrin) 325 mg PO DAILY [facility] Last Admin: 06/25/18 09:52 Dose: 325 mg Enoxaparin Sodium (Lovenox) 40 mg SC DAILY [facility] Last Admin: 06/25/18 09:52 Dose: 40 mg Ergocalciferol (Drisdol 50,000 Intl Units Cap) 1 cap PO QWK [facility] Furosemide (Lasix) 40 mg IVP DAILY [facility] Last Admin: 06/25/18 09:53 Dose: Not Given Insulin Human Regular (Novolin R) 0 unit SC ACHS [facility]; Protocol Last Admin: 06/25/18 12:32 Dose: 6 units Metoprolol Tartrate (Lopressor) 25 mg PO BID [facility] Last Admin: 06/25/18 09:53 Dose: Not Given Montelukast Sodium (Singulair) 10 mg PO DAILY [facility] Last Admin: 06/25/18 09:54 Dose: 10 mg Ranolazine (Ranexa) 500 mg PO BID [facility] Last Admin: 06/25/18 10:06 Dose: Not Given Repaglinide (Prandin) 2 mg PO DAILY [facility] Last Admin: 06/25/18 10:06 Dose: Not Given Roflumilast (Daliresp) 500 mcg PO DAILY [facility] Last Admin: 06/25/18 10:07 Dose: Not Given Rosuvastatin Calcium (Crestor) 20 mg PO HS [facility] Last Admin: 06/24/18 21:07 Dose: 20 mg Sacubitril/Valsartan (Entresto 49 Mg-51 Mg) 1 tab PO BID [facility] Last Admin: 06/25/18 09:53 Dose: Not Given - Labs Labs: 06/24/18 19:28 06/24/18 17:26 PT 12.8 SECONDS (9.7-12.2) H 06/23/18 20:31 INR 1.2 06/23/18 20:31 APTT 33 SECONDS (21-34) 06/23/18 20:31
[2018-06-25 16:37] LABS: BASO % 0.5 % (0.0-2.0); EOS % 0.2 % (0.0-4.0); LYMPH # 0.4 K/uL (1.0-4.3); LYMPH % 4.5 % (20.0-40.0); MEAN CELL VOLUME 86.3 fL (81.0-99.0); MEAN CORPUSCULAR HEMOGLOBIN 27.9 pg (27.0-31.0); MEAN CORPUSCULAR HGB CONC 32.3 g/dL (33.0-37.0); MEAN PLATELET VOLUME 10.5 fL (7.2-11.7); MONO # 0.9 K/uL (0.0-0.8); MONO % 9.3 % (0.0-10.0); NEUT # 8.2 K/uL (1.8-7.0); NEUT % 85.5 % (50.0-75.0); NRBC % 0.1 % (0.0-2.0); RBC 3.58 Mil/uL (3.80-5.20); RED CELL DISTRIBUTION WIDTH 19.1 % (11.5-14.5); WHITE BLOOD COUNT 9.5 K/uL (4.8-10.8)
[2018-06-25 16:52] LABS: ALB/GLOB RATIO 1.2 (1.0-2.1); ALBUMIN 3.2 g/dL (3.5-5.0); CALCIUM 8.7 mg/dl (8.6-10.4)
[2018-06-25 16:58] LABS: PLATELET COUNT 127 K/uL (130-400)
[2018-06-25 17:39] LABS: BANDS 1 % (0-2); EOSINOPHIL 1 % (0-4); LYMPHOCYTE 7 % (20-40); MONOCYTE 5 % (0-10); NEUTROPHIL 86 % (50-75); TOTAL CELLS COUNTED 100
[2018-06-25 17:40] LABS: ANISOCYTOSIS SLIGHT; HYPOCHROMIC SLIGHT; OVALOCYTES SLIGHT; PLATELET ESTIMATE SLIGHTLY DECREASED (NORMAL); POIKILOCYTOSIS SLIGHT
[2018-06-25 17:41] LABS: BURR CELLS SLIGHT; LARGE PLATELETS PRESENT; TEARDROP CELLS SLIGHT
[2018-06-25] MEDS: Sodium Chloride 0.45% 1,000 ML IV SCH (20:49)
[2018-06-26] MEDS: (Novolin R) Insulin Human Regular 100 units/ml vial SC SCH ×4 (08:30→22:32)
[2018-06-26] MEDS: Aspirin 325 mg EC Tablets PO SCH (09:17)
[2018-06-26] MEDS: Sacubitril/Valsartan 49-51 Tab PO SCH ×2 (09:20→18:34)
[2018-06-26] MEDS: Ranolazine 500 mg Extended Release Tablets PO SCH ×2 (09:20→18:35)
[2018-06-26] MEDS: Enoxaparin 40 mg Syringe SC SCH (09:22)
[2018-06-26] MEDS: Sodium Chloride 0.45% 1,000 ML IV SCH (14:43)
--- NOTE | 2018-06-26 16:13 | CP.PCM.PN ---
Subjective - Date & Time of Evaluation Date of Evaluation: 06/26/18 Time of Evaluation: 16:12 - Subjective Subjective: Patient is still low blood pressure in the range of 80 mmHg. IV half normal started. BNP is still in 90,000 The BUN and creatinine is now trending up, we will cut down the Lasix to 20 mg once a day. Objective - Vital Signs/Intake and Output Vital Signs (last 24 hours): Temp Pulse Resp BP Pulse Ox 98.2 F 103 H 18 89/53 L 100 06/26/18 07:00 06/26/18 07:00 06/26/18 07:00 06/26/18 10:28 06/26/18 07:00 Intake and Output: 06/26/18 06/26/18 11:59 23:59 Intake Total 540 980 Balance 540 980 - Medications Medications: Current Medications Albuterol/Ipratropium (Duoneb 3 Mg/0.5 Mg (3 Ml) Ud) 3 ml INH RQ4 PRN PRN Reason: Shortness of Breath Last Admin: 06/24/18 13:32 Dose: 3 ml Aspirin (Ecotrin) 325 mg PO DAILY [facility] Last Admin: 06/26/18 09:17 Dose: 325 mg Enoxaparin Sodium (Lovenox) 40 mg SC DAILY [facility] Last Admin: 06/26/18 09:22 Dose: 40 mg Ergocalciferol (Drisdol 50,000 Intl Units Cap) 1 cap PO QWK [facility] Furosemide (Lasix) 20 mg IVP DAILY [facility] Sodium Chloride (Sodium Chloride 0.45%) 1,000 mls @ 60 mls/hr IV .[id number] [facility] Last Admin: 06/26/18 14:43 Dose: 60 mls/hr Insulin Human Regular (Novolin R) 0 unit SC ACHS [facility]; Protocol Last Admin: 06/26/18 12:18 Dose: 3 units Metoprolol Tartrate (Lopressor) 25 mg PO BID [facility] Last Admin: 06/26/18 09:20 Dose: Not Given Montelukast Sodium (Singulair) 10 mg PO DAILY [facility] Last Admin: 06/26/18 09:19 Dose: Not Given Ranolazine (Ranexa) 500 mg PO BID [facility] Last Admin: 06/26/18 09:20 Dose: Not Given Repaglinide (Prandin) 2 mg PO DAILY [facility] Last Admin: 06/26/18 09:17 Dose: 2 mg Roflumilast (Daliresp) 500 mcg PO DAILY [facility] Last Admin: 06/26/18 09:17 Dose: 500 mcg Rosuvastatin Calcium (Crestor) 20 mg PO HS [facility] Last Admin: 06/25/18 22:03 Dose: 20 mg Sacubitril/Valsartan (Entresto 49 Mg-51 Mg) 1 tab PO BID [facility] Last Admin: 06/26/18 09:20 Dose: Not Given - Labs Labs: 06/25/18 16:32 06/25/18 16:32 PT 12.8 SECONDS (9.7-12.2) H 06/23/18 20:31 INR 1.2 06/23/18 20:31 APTT 33 SECONDS (21-34) 06/23/18 20:31
[2018-06-27] MEDS: Albuterol-Ipratrop 3 mg / 0.5 (3 ml) UD INH PRN (01:21)
[2018-06-27] MEDS: Sodium Chloride 0.45% 1,000 ML IV SCH ×3 (07:05→23:52)
[2018-06-27] MEDS: (Novolin R) Insulin Human Regular 100 units/ml vial SC SCH ×4 (08:04→23:51)
[2018-06-27 08:13] LABS: BASO # 0.1 K/uL (0.0-0.2); BASO % 1.2 % (0.0-2.0); EOS # 0.4 K/uL (0.0-0.7); EOS % 5.9 % (0.0-4.0); HEMOGLOBIN 9.5 g/dL (11.0-16.0); LYMPH # 0.3 K/uL (1.0-4.3); LYMPH % 3.6 % (20.0-40.0); MEAN CELL VOLUME 86.7 fL (81.0-99.0); MEAN CORPUSCULAR HEMOGLOBIN 28.8 pg (27.0-31.0); MEAN CORPUSCULAR HGB CONC 33.2 g/dL (33.0-37.0); MEAN PLATELET VOLUME 10.4 fL (7.2-11.7); MONO # 0.6 K/uL (0.0-0.8); MONO % 8.5 % (0.0-10.0); NEUT % 80.8 % (50.0-75.0); NRBC % 0.1 % (0.0-2.0); PLATELET COUNT 140 K/uL (130-400); RBC 3.29 Mil/uL (3.80-5.20); RED CELL DISTRIBUTION WIDTH 18.8 % (11.5-14.5); WHITE BLOOD COUNT 7.5 K/uL (4.8-10.8)
[2018-06-27 08:31] LABS: ALBUMIN 2.5 g/dL (3.5-5.0)
[2018-06-27 09:25] LABS: BANDS 1 % (0-2); EOSINOPHIL 2 % (0-4); LYMPHOCYTE 3 % (20-40); MONOCYTE 4 % (0-10); NEUTROPHIL 90 % (50-75); TOTAL CELLS COUNTED 100
[2018-06-27 09:26] LABS: ANISOCYTOSIS SLIGHT; HYPOCHROMIC SLIGHT; PLATELET ESTIMATE NORMAL (NORMAL); POLYCHROMIC SLIGHT
[2018-06-27] MEDS: Enoxaparin 40 mg Syringe SC SCH (09:41)
[2018-06-27] MEDS: Aspirin 325 mg EC Tablets PO SCH (09:41)
[2018-06-27] MEDS: Ranolazine 500 mg Extended Release Tablets PO SCH ×2 (09:42→18:47)
[2018-06-27] MEDS: Sacubitril/Valsartan 49-51 Tab PO SCH ×2 (09:42→18:33)
--- NOTE | 2018-06-27 13:07 | CP.PCM.CON ---
History of Present Illness - History of Present Illness History of Present Illness: INFECTIOUS DISEASE CONSULT; HPI; 87-year-old female with multiple medical problems including ischemic cardiomyopathy, CAD with 2 stents, ejection fraction 30%, type 2 diabetes mellitus, COPD, an AICD who is admitted by the emergency room complaining off shortness of breath, cough with yellowish whitish expectorant and increased wheezing. INFECTIOUS DISEASE CONSULTATION REQUESTED BY PMD FOR EVALUATION OF PNEUMONIA AND EXACERBATION OF COPD. ALSO SPUTUM REPORTED +VE FOR PSEUDOMONAS AERUGINOSA. PTS PRBNP IS ALSO ELEVATED TO 34,400. PMH: Anemia, Anxiety, Arthritis, Asthma, Cardia Arrhythmia, CHF, COPD, Diabetes, HTN, Hypercholesterolemia, TIA Denies: Chronic Kidney Disease, RECENT HX OF PERTUSSIS. Surgical History: Appendectomy, Coronary Stent, Endoscopy, Pacemaker (2015) - [employer] Procedures ASSISTANCE WITH RESPIRATORY VENTILATION, 24-96 HRS, CPAP (06/15/17) ASSISTANCE WITH RESPIRATORY VENTILATION, <24 HRS, CPAP (02/06/16) ESOPHAGOGASTRODUODENOSCOPY [EGD] W/CLOSED BIOPSY (12/30/14) LEFT HEART CARDIAC CATH (10/19/13) LT HEART ANGIOCARDIOGRAM (10/19/13) MEASURE OF CARDIAC SAMPL & PRESSURE, L HEART, PERC APPROACH (05/21/15) PACKED CELL TRANSFUSION (12/30/14) PLAIN RADIOGRAPHY OF MULT COR ART USING OTH CONTRAST (05/21/15) TRANSFUSE NONAUT RED BLOOD CELLS IN PERIPH VEIN, PERC (02/06/16) Family History: States: No Known Family Hx - Social History Hx Tobacco Use: No Hx Alcohol Use: No Hx Substance Use: No - Immunization History Hx Tetanus Toxoid Vaccination: No Hx Influenza Vaccination: Yes Hx Pneumococcal Vaccination: Yes Dtap; RECEIVED IN FEB, 2018 ALLERGY;CLOPIDOGREL. Review of Systems - Constitutional Constitutional: Fatigue, Fever, Malaise - EENT Eyes: absent: Change in Vision Ears: absent: Ear Pain Nose/Mouth/Throat: absent: Mouth Lesions - Cardiovascular Cardiovascular: Dyspnea. absent: Chest Pain - Respiratory Respiratory: Cough, Dyspnea on Exertion, Chest Congestion, Change in Mucous Color - Gastrointestinal Gastrointestinal: absent: Abdominal Pain, Diarrhea - Genitourinary Genitourinary: absent: Freq UTI - Hematologic/Lymphatic Hematologic: As Per HPI. absent: Easy Bruising, Lymphadenopathy Past Patient History - Infectious Disease Hx of Infectious Diseases: None - Tetanus Immunizations Tetanus Immunization: Unknown - Past Medical History & Family History Past Medical History?: Yes - Past Social History Smoking Status: Never Smoked - CARDIAC Hx Cardiac Disorders: Yes (CAD) Hx Hypercholesterolemia: Yes - PULMONARY Hx Chronic Obstructive Pulmonary Disease (COPD): Yes - NEUROLOGICAL Hx Transient Ischemic Attacks (TIA): Yes - HEENT Hx HEENT Problems: No - RENAL Hx Chronic Kidney Disease: No - ENDOCRINE/METABOLIC Hx Diabetes Mellitus Type 2: Yes - HEMATOLOGICAL/ONCOLOGICAL Hx Anemia: Yes - INTEGUMENTARY Hx Dermatological Problems: No - MUSCULOSKELETAL/RHEUMATOLOGICAL Hx Arthritis: Yes Hx Falls: No - GASTROINTESTINAL Hx Gastrointestinal Disorders: No - GENITOURINARY/GYNECOLOGICAL Hx Genitourinary Disorders: No - PSYCHIATRIC Hx Anxiety: Yes Hx Substance Use: No - SURGICAL HISTORY Hx Appendectomy: Yes Hx Coronary Stent: Yes - ANESTHESIA Hx Anesthesia: Yes Hx Anesthesia Reactions: No Hx Malignant Hyperthermia: No Meds Allergies/Adverse Reactions: Allergies Allergy/AdvReac Type Severity Reaction Status Date / Time clopidogrel Allergy Mild SWELLING Verified 12/22/17 13:34 - Medications Medications: Current Medications Albuterol/Ipratropium (Duoneb 3 Mg/0.5 Mg (3 Ml) Ud) 3 ml INH RQ4 PRN PRN Reason: Shortness of Breath Last Admin: 06/27/18 01:21 Dose: 3 ml Aspirin (Ecotrin) 325 mg PO DAILY [facility] Last Admin: 06/27/18 09:41 Dose: 325 mg Enoxaparin Sodium (Lovenox) 40 mg SC DAILY [facility] Last Admin: 06/27/18 09:41 Dose: 40 mg Ergocalciferol (Drisdol 50,000 Intl Units Cap) 1 cap PO QWK [facility] Furosemide (Lasix) 20 mg IVP DAILY [facility] Sodium Chloride (Sodium Chloride 0.45%) 1,000 mls @ 60 mls/hr IV .[id number] [facility] Last Admin: 06/26/18 14:43 Dose: 60 mls/hr Insulin Human Regular (Novolin R) 0 unit SC [facility]; Protocol Last Admin: 06/27/18 08:04 Dose: Not Given Metoprolol Tartrate (Lopressor) 25 mg PO BID [facility] Last Admin: 06/26/18 18:34 Dose: Not Given Montelukast Sodium (Singulair) 10 mg PO DAILY [facility] Last Admin: 06/27/18 09:41 Dose: 10 mg Ranolazine (Ranexa) 500 mg PO BID [facility] Last Admin: 06/27/18 09:42 Dose: 500 mg Repaglinide (Prandin) 2 mg PO DAILY [facility] Last Admin: 06/26/18 09:17 Dose: 2 mg Roflumilast (Daliresp) 500 mcg PO DAILY [facility] Last Admin: 06/27/18 09:42 Dose: 500 mcg Rosuvastatin Calcium (Crestor) 20 mg PO HS [facility] Last Admin: 06/26/18 22:04 Dose: 20 mg Sacubitril/Valsartan (Entresto 49 Mg-51 Mg) 1 tab PO BID [facility] Last Admin: 06/27/18 09:42 Dose: 1 tab Physical Exam - Constitutional Appears: No Acute Distress, Cachectic - Head Exam Head Exam: NORMAL INSPECTION - Eye Exam Eye Exam: EOMI, PERRL - ENT Exam ENT Exam: Normal Oropharynx - Neck Exam Neck exam: Positive for: Normal Inspection - Respiratory Exam Respiratory Exam: Prolonged Expiratory Phase, Rales, Wheezes, NORMAL BREATHING PATTERN - Cardiovascular Exam Cardiovascular Exam: REGULAR RHYTHM, +S1, +S2 - GI/Abdominal Exam GI & Abdominal Exam: Normal Bowel Sounds, Soft. absent: Tenderness - Extremities Exam Extremities exam: Positive for: pedal edema (1+ EDEMA), pedal pulses present. Negative for: calf tenderness - Neurological Exam Neurological exam: Alert, CN II-XII Intact, Oriented x3 - Psychiatric Exam Psychiatric exam: Normal Mood - Skin Skin Exam: Normal Color, Warm Results - Vital Signs Recent Vital Signs: Last Vital Signs Temp 98.3 F 06/27/18 07:00 Pulse 74 06/27/18 07:15 Resp 20 06/27/18 07:10 BP 84/43 L 06/27/18 07:10 Pulse Ox 99 06/27/18 07:10 - Labs Result Diagrams: 06/27/18 08:05 06/27/18 08:05 Labs: Laboratory Results - last 24 hr 06/26/18 06/26/18 06/27/18 17:27 21:37 06:30 WBC RBC Hgb Hct MCV MCH MCHC RDW Plt Count MPV Neut % (Auto) Lymph % (Auto) Alfalfa % (Auto) Eos % (Auto) Baso % (Auto) Neut # (Auto) Lymph # (Auto) Alfalfa # (Auto) Eos # (Auto) Baso # (Auto) Neutrophils % (Manual) Band Neutrophils % Lymphocytes % (Manual) Monocytes % (Manual) Eosinophils % (Manual) Platelet Estimate Polychromasia Hypochromasia (manual) Anisocytosis (manual) Sodium Potassium Chloride Carbon Dioxide Anion Gap BUN Creatinine Est GFR ( Amer) Est GFR (Non-Af Amer) POC Glucose (mg/dL) 208 H 136 H 118 H Random Glucose Calcium Total Bilirubin AST ALT Alkaline Phosphatase NT-Pro-B Natriuret Pep Total Protein Albumin Globulin Albumin/Globulin Ratio 06/27/18 06/27/18 08:05 08:05 WBC 7.5 RBC 3.29 L Hgb 9.5 L Hct 28.5 L MCV 86.7 MCH 28.8 MCHC 33.2 RDW 18.8 H Plt Count 140 MPV 10.4 Neut % (Auto) 80.8 H Lymph % (Auto) 3.6 L Alfalfa % (Auto) 8.5 Eos % (Auto) 5.9 H Baso % (Auto) 1.2 Neut # (Auto) 6.0 Lymph # (Auto) 0.3 L Alfalfa # (Auto) 0.6 Eos # (Auto) 0.4 Baso # (Auto) 0.1 Neutrophils % (Manual) 90 H Band Neutrophils % 1 Lymphocytes % (Manual) 3 L Monocytes % (Manual) 4 Eosinophils % (Manual) 2 Platelet Estimate Normal Polychromasia Slight Hypochromasia (manual) Slight Anisocytosis (manual) Slight Sodium 132 Potassium 4.5 Chloride 102 Carbon Dioxide 25 Anion Gap 10 BUN 25 H Creatinine 1.2 Est GFR ( Amer) 52 Est GFR (Non-Af Amer) 43 POC Glucose (mg/dL) Random Glucose 120 H Calcium 8.0 L Total Bilirubin 0.6 AST 28 ALT 36 Alkaline Phosphatase 113 NT-Pro-B Natriuret Pep 12273 H Total Protein 5.1 L Albumin 2.5 L D Globulin 2.6 Albumin/Globulin Ratio 1.0 - Imaging and Cardiology Chest x-ray Status: Report reviewed by me (CHEST X-RAY 08/24/17 MODERATE pvc, FLUID AND MINOR FISSURE, LEFT-SIDED AICD..) Assessment & Plan (1) Chr obstructive pulmonary disease w/ acute lower respiratory infxn Status: Acute (2) Respiratory distress Status: Acute (3) CHF exacerbation Status: Acute (4) Cardiomyopathy Status: Acute (5) DM type 2 (diabetes mellitus, type 2) Status: Acute (6) CAD (coronary artery disease) Status: Acute - Assessment and Plan (Free Text) Plan: PANCULTURE. CRP. START iv CEFEPIME 1 G iv PIGGYBACK ONCE A DAY DAILY 06/27/18 TO COVER FOR BRONCHOPULMONARY INFECTION AND ACUTE BRONCHITIS. DIURESIS PER PMD. PULMONARY TOILET. DUONEB TREATMENTS. F/U CULTURES TO ADJUST ABX. WILL F/U WITH YOU. THANKS.
[2018-06-27] MEDS: Cefepime IV 1 gm in Dextrose 1 GM/50 ML BAG IVPB SCH (13:50)
--- NOTE | 2018-06-27 14:21 | CP.PCM.PN ---
Subjective - Date & Time of Evaluation Date of Evaluation: 06/27/18 Time of Evaluation: 14:21 - Subjective Subjective: CHIEF COMPLAINTS TODAY : PT. FEELS WEAK AND SOB SYSTOLIC BP IS LOW ROS. HEENT : N. Resp : No hemoptysis Cardio : No anginal CPGI : No abd.pain, n/v ,diarrhea or GI bleeding . 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 Musculoskel : No joint swelling , Derm : No rash Psych : Normal affect. Ext : No swelling ,calf pain PE. Pt. is alert awake in no distress. V.S As noted in the chart Head ,ear nose,throat and eyes : Normal. Neck : Supple with normal carotids. Lungs: POOR AIR ENTRY WITH WHEEZING Heart : S1 & S2 normal with S4. No murmur. Abd : Soft non tender with normal bowel sounds. Neuro : Moves all ext. with no localized deficit. Ext : No edema with intact pulses.Non tender calves Derm : No rashes or decubitus ulcer. LABS/RADIOLOGY: sPUTUM SHOWS pSEUDOMO ASSESSMENT/PLAN : HOLD BP MEDS CONT IV LASIX, CHF IMPROVING id EVALUATION FOR iv ANTIBIOTICS Objective - Vital Signs/Intake and Output Vital Signs (last 24 hours): Temp Pulse Resp BP Pulse Ox 98.3 F 74 20 84/43 L 99 06/27/18 07:00 06/27/18 07:15 06/27/18 07:10 06/27/18 07:10 06/27/18 07:10 Intake and Output: 06/27/18 06/27/18 11:59 23:59 Intake Total 480 Balance 480 - Medications Medications: Current Medications Albuterol/Ipratropium (Duoneb 3 Mg/0.5 Mg (3 Ml) Ud) 3 ml INH RQ4 PRN PRN Reason: Shortness of Breath Last Admin: 06/27/18 01:21 Dose: 3 ml Aspirin (Ecotrin) 325 mg PO DAILY [facility] Last Admin: 06/27/18 09:41 Dose: 325 mg Enoxaparin Sodium (Lovenox) 40 mg SC DAILY [facility] Last Admin: 06/27/18 09:41 Dose: 40 mg Ergocalciferol (Drisdol 50,000 Intl Units Cap) 1 cap PO QWK [facility] Furosemide (Lasix) 20 mg IVP DAILY [facility] Last Admin: 06/27/18 10:00 Dose: Not Given Sodium Chloride (Sodium Chloride 0.45%) 1,000 mls @ 60 mls/hr IV .[id number] [facility] Last Admin: 06/27/18 13:56 Dose: 60 mls/hr Cefepime HCl (Maxipime Iv 1 Gm Premix) 1 gm in 50 mls @ 100 mls/hr IVPB Q24H [facility]; Protocol Last Admin: 06/27/18 13:50 Dose: 100 mls/hr Insulin Human Regular (Novolin R) 0 unit SC ACHS [facility]; Protocol Last Admin: 06/27/18 08:04 Dose: Not Given Metoprolol Tartrate (Lopressor) 25 mg PO BID [facility] Last Admin: 06/27/18 10:00 Dose: Not Given Montelukast Sodium (Singulair) 10 mg PO DAILY [facility] Last Admin: 06/27/18 09:41 Dose: 10 mg Ranolazine (Ranexa) 500 mg PO BID [facility] Last Admin: 06/27/18 09:42 Dose: 500 mg Repaglinide (Prandin) 2 mg PO DAILY [facility] Last Admin: 06/27/18 10:00 Dose: Not Given Roflumilast (Daliresp) 500 mcg PO DAILY [facility] Last Admin: 06/27/18 09:42 Dose: 500 mcg Rosuvastatin Calcium (Crestor) 20 mg PO HS [facility] Last Admin: 06/26/18 22:04 Dose: 20 mg Sacubitril/Valsartan (Entresto 49 Mg-51 Mg) 1 tab PO BID [facility] Last Admin: 06/27/18 09:42 Dose: 1 tab - Labs Labs: 06/27/18 08:05 06/27/18 08:05 PT 12.8 SECONDS (9.7-12.2) H 06/23/18 20:31 INR 1.2 06/23/18 20:31 APTT 33 SECONDS (21-34) 06/23/18 20:31
[2018-06-28 07:15] LABS: BASO # 0.1 K/uL (0.0-0.2); BASO % 0.6 % (0.0-2.0); EOS # 0.4 K/uL (0.0-0.7); EOS % 4.4 % (0.0-4.0); HEMOGLOBIN 10.1 g/dL (11.0-16.0); LYMPH # 0.4 K/uL (1.0-4.3); LYMPH % 4.6 % (20.0-40.0); MEAN CELL VOLUME 86.8 fL (81.0-99.0); MEAN CORPUSCULAR HEMOGLOBIN 28.9 pg (27.0-31.0); MEAN CORPUSCULAR HGB CONC 33.3 g/dL (33.0-37.0); MEAN PLATELET VOLUME 10.2 fL (7.2-11.7); MONO % 11.3 % (0.0-10.0); NEUT # 7.3 K/uL (1.8-7.0); NEUT % 79.1 % (50.0-75.0); NRBC % 0.1 % (0.0-2.0); PLATELET COUNT 153 K/uL (130-400); RED CELL DISTRIBUTION WIDTH 18.4 % (11.5-14.5); WHITE BLOOD COUNT 9.2 K/uL (4.8-10.8)
[2018-06-28] MEDS: (Novolin R) Insulin Human Regular 100 units/ml vial SC SCH ×4 (07:30→21:12)
[2018-06-28 07:53] LABS: ALB/GLOB RATIO 0.9 (1.0-2.1); ALBUMIN 2.6 g/dL (3.5-5.0); CALCIUM 8.3 mg/dl (8.6-10.4)
[2018-06-28 09:14] LABS: EOSINOPHIL 3 % (0-4); LYMPHOCYTE 3 % (20-40); MONOCYTE 8 % (0-10); NEUTROPHIL 86 % (50-75); NUCLEATED RED BLOOD CELL 1 % (0-0); TOTAL CELLS COUNTED 100
[2018-06-28 09:15] LABS: ANISOCYTOSIS SLIGHT; HYPOCHROMIC SLIGHT; PLATELET ESTIMATE NORMAL (NORMAL); POLYCHROMIC SLIGHT
[2018-06-28] MEDS: Aspirin 325 mg EC Tablets PO SCH (09:55)
[2018-06-28] MEDS: Enoxaparin 40 mg Syringe SC SCH (09:55)
[2018-06-28] MEDS: Sacubitril/Valsartan 49-51 Tab PO SCH ×2 (10:00→17:21)
[2018-06-28] MEDS: Ranolazine 500 mg Extended Release Tablets PO SCH ×2 (10:00→17:21)
--- NOTE | 2018-06-28 13:58 | CP.PCM.PN ---
Subjective - Date & Time of Evaluation Date of Evaluation: 06/28/18 Time of Evaluation: 13:57 - Subjective Subjective: CHIEF COMPLAINTS TODAY : PT. FEELS WEAK AND SOB SYSTOLIC BP IS LOW no urine output is noted ROS. HEENT : N. Resp : No hemoptysis Cardio : No anginal CPGI : No abd.pain, n/v ,diarrhea or GI bleeding . [employer] : No headache, vertigo, focal deficit. Musculoskel : No joint swelling , Derm : No rash Psych : Normal affect. Ext : No swelling ,calf pain PE. Pt. is alert awake in no distress. V.S As noted in the chart Head ,ear nose,throat and eyes : Normal. Neck : Supple with normal carotids. Lungs: POOR AIR ENTRY WITH WHEEZING Heart : S1 & S2 normal with S4. No murmur. Abd : Soft non tender with normal bowel sounds. Neuro : Moves all ext. with no localized deficit. Ext : No edema with intact pulses.Non tender calves Derm : No rashes or decubitus ulcer. LABS/RADIOLOGY: sPUTUM SHOWS pSEUDOMO ASSESSMENT/PLAN : HOLD BP MEDS CONT IV LASIX, CHF IMPROVING repeat chest x-ray Objective - Vital Signs/Intake and Output Vital Signs (last 24 hours): Temp Pulse Resp BP Pulse Ox 98.8 F 108 H 20 95/67 L 98 06/28/18 07:00 06/28/18 07:00 06/28/18 07:00 06/28/18 07:00 06/28/18 07:00 Intake and Output: 06/28/18 06/28/18 11:59 23:59 Intake Total 540 Balance 540 - Medications Medications: Current Medications Albuterol/Ipratropium (Duoneb 3 Mg/0.5 Mg (3 Ml) Ud) 3 ml INH RQ4 PRN PRN Reason: Shortness of Breath Last Admin: 06/27/18 01:21 Dose: 3 ml Aspirin (Ecotrin) 325 mg PO DAILY [facility] Last Admin: 06/28/18 09:55 Dose: 325 mg Enoxaparin Sodium (Lovenox) 40 mg SC DAILY [facility] Last Admin: 06/28/18 09:55 Dose: 40 mg Ergocalciferol (Drisdol 50,000 Intl Units Cap) 1 cap PO QWK [facility] Furosemide (Lasix) 20 mg IVP DAILY [facility] Last Admin: 06/27/18 10:00 Dose: Not Given Sodium Chloride (Sodium Chloride 0.45%) 1,000 mls @ 60 mls/hr IV .[id number] [facility] Last Admin: 06/27/18 23:52 Dose: Not Given Cefepime HCl (Maxipime Iv 1 Gm Premix) 1 gm in 50 mls @ 100 mls/hr IVPB Q24H [facility]; Protocol Last Admin: 06/27/18 13:50 Dose: 100 mls/hr Insulin Human Regular (Novolin R) 0 unit SC ACHS [facility]; Protocol Last Admin: 06/28/18 11:52 Dose: Not Given Metoprolol Tartrate (Lopressor) 25 mg PO BID [facility] Last Admin: 06/28/18 09:57 Dose: Not Given Montelukast Sodium (Singulair) 10 mg PO DAILY [facility] Last Admin: 06/28/18 09:55 Dose: 10 mg Ranolazine (Ranexa) 500 mg PO BID [facility] Last Admin: 06/28/18 10:00 Dose: 500 mg Repaglinide (Prandin) 2 mg PO DAILY [facility] Last Admin: 06/28/18 09:56 Dose: Not Given Roflumilast (Daliresp) 500 mcg PO DAILY [facility] Last Admin: 06/28/18 10:01 Dose: 500 mcg Rosuvastatin Calcium (Crestor) 20 mg PO HS [facility] Last Admin: 06/27/18 22:24 Dose: 20 mg Sacubitril/Valsartan (Entresto 49 Mg-51 Mg) 1 tab PO BID [facility] Last Admin: 06/28/18 10:00 Dose: 1 tab - Labs Labs: 06/28/18 07:03 06/28/18 07:03 PT 12.8 SECONDS (9.7-12.2) H 06/23/18 20:31 INR 1.2 06/23/18 20:31 APTT 33 SECONDS (21-34) 06/23/18 20:31
[2018-06-28] MEDS: Cefepime IV 1 gm in Dextrose 1 GM/50 ML BAG IVPB SCH (14:30)
[2018-06-28] MEDS: Sodium Chloride 0.45% 1,000 ML IV SCH (15:48)
--- NOTE | 2018-06-28 16:41 | RAD ---
Date of service: 06/28/2018 PROCEDURE: CHEST RADIOGRAPH, 1 VIEW HISTORY: chf COMPARISON: 06/23/2018. FINDINGS: LUNGS: Progressive multifocal infiltrates including dense consolidative change right upper lobe with air bronchograms likely superimposed pneumonia. PLEURA: No pneumothorax or pleural fluid seen. CARDIOVASCULAR: No aortic atherosclerotic calcification present. Cardiomegaly. Position/ configuration of pacemaker OSSEOUS STRUCTURES: No significant abnormalities. VISUALIZED UPPER ABDOMEN: Normal. OTHER FINDINGS: Stable large hiatal hernia. IMPRESSION: New dense consolidative change right upper lobe. Underlying pulmonary vascular congestion similar to that seen previously.
--- NOTE | 2018-06-28 19:10 | CARD ---
APPROVED REPORT Date of service: 06/24/2018 EKG Measurement Heart [id number] <Conclusion> Sinus rhythm with premature atrial complexes Left ventricular hypertrophy with QRS widening T wave abnormality, consider lateral ischemia Abnormal ECG
--- NOTE | 2018-06-28 20:32 | CP.PCM.PN ---
Subjective - Date & Time of Evaluation Date of Evaluation: 06/28/18 Time of Evaluation: 20:32 - Subjective Subjective: CHIEF COMPLAINTS TODAY : C/O SOB ON EXERTION FEELS WEAK FACE PUFFY SYSTOLIC BP IS LOW ROS. HEENT : N. Resp : No hemoptysis . +VE WHEEZE,RALES Cardio : No anginal CPGI : No abd.pain, n/v ,diarrhea or GI bleeding . [employer]ER : No headache, vertigo, focal deficit. Musculoskel : No joint swelling , Derm : No rash Psych : Normal affect. Ext : No swelling ,calf pain PE. Pt. is alert awake in no distress. V.S As noted in the chart Head ,ear nose,throat and eyes : Normal. Neck : Supple with normal carotids. Lungs: POOR AIR ENTRY WITH EXP. WHEEZE Heart : S1 & S2 normal with S4. No murmur. Abd : Soft non tender with normal bowel sounds. Neuro : Moves all ext. with no localized deficit. Ext : No edema with intact pulses.Non tender calves Derm : No rashes or decubitus ulcer. LABS/RADIOLOGY: WBC 9.2 H/H10.1 PLT 153 LFTS N CREAT 1.3/BUN 30 Objective - Vital Signs/Intake and Output Vital Signs (last 24 hours): Temp Pulse Resp BP Pulse Ox 97.8 F 101 H 22 89/53 L 100 06/28/18 15:35 06/28/18 20:00 06/28/18 15:35 06/28/18 15:35 06/28/18 15:35 Intake and Output: 06/28/18 06/29/18 18:59 06:59 Intake Total 450 Balance 450 - Medications Medications: Current Medications Albuterol/Ipratropium (Duoneb 3 Mg/0.5 Mg (3 Ml) Ud) 3 ml INH RQ4 PRN PRN Reason: Shortness of Breath Last Admin: 06/27/18 01:21 Dose: 3 ml Aspirin (Ecotrin) 325 mg PO DAILY [facility] Last Admin: 06/28/18 09:55 Dose: 325 mg Enoxaparin Sodium (Lovenox) 40 mg SC DAILY [facility] Last Admin: 06/28/18 09:55 Dose: 40 mg Ergocalciferol (Drisdol 50,000 Intl Units Cap) 1 cap PO QWK [facility] Furosemide (Lasix) 20 mg IVP DAILY [facility] Last Admin: 06/28/18 11:00 Dose: Not Given Sodium Chloride (Sodium Chloride 0.45%) 1,000 mls @ 60 mls/hr IV .[id number] [facility] Last Admin: 06/28/18 15:48 Dose: Not Given Cefepime HCl (Maxipime Iv 1 Gm Premix) 1 gm in 50 mls @ 100 mls/hr IVPB Q24H [facility]; Protocol Last Admin: 06/28/18 14:30 Dose: 100 mls/hr Insulin Human Regular (Novolin R) 0 unit SC ACHS [facility]; Protocol Last Admin: 06/28/18 16:33 Dose: Not Given Metoprolol Tartrate (Lopressor) 25 mg PO BID [facility] Last Admin: 06/28/18 17:21 Dose: Not Given Montelukast Sodium (Singulair) 10 mg PO DAILY [facility] Last Admin: 06/28/18 09:55 Dose: 10 mg Ranolazine (Ranexa) 500 mg PO BID [facility] Last Admin: 06/28/18 17:21 Dose: 500 mg Repaglinide (Prandin) 2 mg PO DAILY [facility] Last Admin: 06/28/18 09:56 Dose: Not Given Roflumilast (Daliresp) 500 mcg PO DAILY [facility] Last Admin: 06/28/18 10:01 Dose: 500 mcg Rosuvastatin Calcium (Crestor) 20 mg PO HS [facility] Last Admin: 06/27/18 22:24 Dose: 20 mg Sacubitril/Valsartan (Entresto 49 Mg-51 Mg) 1 tab PO BID [facility] Last Admin: 06/28/18 17:21 Dose: Not Given - Labs Labs: 06/28/18 07:03 06/28/18 07:03 PT 12.8 SECONDS (9.7-12.2) H 06/23/18 20:31 INR 1.2 06/23/18 20:31 APTT 33 SECONDS (21-34) 06/23/18 20:31 Assessment and Plan (1) Chr obstructive pulmonary disease w/ acute lower respiratory infxn Status: Acute (2) Respiratory distress Status: Acute (3) CHF exacerbation Status: Acute (4) Cardiomyopathy Status: Acute (5) DM type 2 (diabetes mellitus, type 2) Status: Acute (6) CAD (coronary artery disease) Status: Acute - Assessment and Plan (Free Text) Plan: CONTINUE iv CEFEPIME 1 G iv PIGGYBACK ONCE A DAY DAILY 06/27/18 TO COVER FOR BRONCHOPULMONARY INFECTION AND ACUTE BRONCHITIS. DIURESIS PER PMD. IV STERIODS ORDERED FOR EXACERBATION OF COPD PULMONARY TOILET. DUONEB TREATMENTS.
[2018-06-29 08:13] LABS: BASO % 0.6 % (0.0-2.0); EOS # 0.3 K/uL (0.0-0.7); EOS % 3.4 % (0.0-4.0); LYMPH # 0.3 K/uL (1.0-4.3); LYMPH % 3.2 % (20.0-40.0); MEAN CELL VOLUME 86.8 fL (81.0-99.0); MEAN CORPUSCULAR HEMOGLOBIN 28.4 pg (27.0-31.0); MEAN CORPUSCULAR HGB CONC 32.7 g/dL (33.0-37.0); MEAN PLATELET VOLUME 10.1 fL (7.2-11.7); MONO # 1.1 K/uL (0.0-0.8); MONO % 12.9 % (0.0-10.0); NEUT # 6.6 K/uL (1.8-7.0); NEUT % 79.9 % (50.0-75.0); NRBC % 0.1 % (0.0-2.0); PLATELET COUNT 149 K/uL (130-400); RBC 3.18 Mil/uL (3.80-5.20); RED CELL DISTRIBUTION WIDTH 18.3 % (11.5-14.5); WHITE BLOOD COUNT 8.3 K/uL (4.8-10.8)
[2018-06-29] MEDS: (Novolin R) Insulin Human Regular 100 units/ml vial SC SCH ×4 (08:25→21:32)
[2018-06-29 08:59] LABS: ALBUMIN 2.6 g/dL (3.5-5.0); CALCIUM 8.6 mg/dl (8.6-10.4)
[2018-06-29 09:24] LABS: EOSINOPHIL 2 % (0-4); LYMPHOCYTE 3 % (20-40); MONOCYTE 7 % (0-10); NEUTROPHIL 88 % (50-75); PLATELET ESTIMATE NORMAL (NORMAL); TOTAL CELLS COUNTED 100
[2018-06-29 09:25] LABS: ANISOCYTOSIS SLIGHT; BURR CELLS SLIGHT; HYPOCHROMIC SLIGHT; OVALOCYTES SLIGHT; POIKILOCYTOSIS SLIGHT; TEARDROP CELLS SLIGHT
[2018-06-29] MEDS: Enoxaparin 40 mg Syringe SC SCH (09:53)
[2018-06-29] MEDS: Aspirin 325 mg EC Tablets PO SCH (09:53)
[2018-06-29] MEDS: Sacubitril/Valsartan 49-51 Tab PO SCH ×2 (09:53→18:50)
[2018-06-29] MEDS: Ranolazine 500 mg Extended Release Tablets PO SCH ×2 (09:54→18:53)
[2018-06-29] MEDS: Cefepime IV 1 gm in Dextrose 1 GM/50 ML BAG IVPB SCH (13:44)
--- NOTE | 2018-06-29 14:19 | CP.PCM.PN ---
Subjective - Date & Time of Evaluation Date of Evaluation: 06/29/18 Time of Evaluation: 14:18 - Subjective Subjective: CHIEF COMPLAINTS TODAY : PT. FEELS WEAK AND SOB SYSTOLIC BP IS LOW no urine output is NOT CHARTED ROS. HEENT : N. Resp : No hemoptysis Cardio : No anginal CPGI : No abd.pain, n/v ,diarrhea or GI b leeding . 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 Musculoskel : No joint swelling , Derm : No rash Psych : Normal affect. Ext : No swelling ,calf pain PE. Pt. is alert awake in no distress. V.S As noted in the chart Head ,ear nose,throat and eyes : Normal. Neck : Supple with normal carotids. Lungs: POOR AIR ENTRY WITH WHEEZING Heart : S1 & S2 normal with S4. No murmur. Abd : Soft non tender with normal bowel sounds. Neuro : Moves all ext. with no localized deficit. Ext : No edema with intact pulses.Non tender calves Derm : No rashes or decubitus ulcer. LABS/RADIOLOGY: sPUTUM SHOWS pSEUDOMO ASSESSMENT/PLAN : DISCUSSED AT LENGTH WITH THE FAMILY MEMBERS THAT THE PATIENT SHOULD DRINK AND EAT HER MEALS. pATIENT IS VERY WEAK WITH LACK OF FOOD. cONTINUE SMALL DOSE AND BRONCHODILATORS . bLOOD PRESSURE IS SLOWLY TRENDING UPWARD Objective - Vital Signs/Intake and Output Vital Signs (last 24 hours): Temp Pulse Resp BP Pulse Ox 97.6 F 103 H 18 99/52 L 95 06/29/18 08:42 06/29/18 12:00 06/29/18 08:42 06/29/18 09:53 06/29/18 08:42 Intake and Output: 06/29/18 06/29/18 11:59 23:59 Intake Total 120 450 Balance 120 450 - Medications Medications: Current Medications Aspirin (Ecotrin) 325 mg PO DAILY [facility] Last Admin: 06/29/18 09:53 Dose: 325 mg Enoxaparin Sodium (Lovenox) 40 mg SC DAILY [facility] Last Admin: 06/29/18 09:53 Dose: 40 mg Ergocalciferol (Drisdol 50,000 Intl Units Cap) 1 cap PO QWK [facility]ONAN Furosemide (Lasix) 20 mg IVP DAILY [facility] Last Admin: 06/29/18 09:52 Dose: Not Given Cefepime HCl (Maxipime Iv 1 Gm Premix) 1 gm in 50 mls @ 100 mls/hr IVPB Q24H [facility]; Protocol Last Admin: 06/29/18 13:44 Dose: 100 mls/hr Insulin Human Regular (Novolin R) 0 unit SC ACHS [facility]; Protocol Last Admin: 06/29/18 12:19 Dose: 2 units Metoprolol Tartrate (Lopressor) 25 mg PO BID [facility] Last Admin: 06/29/18 09:53 Dose: Not Given Montelukast Sodium (Singulair) 10 mg PO DAILY [facility] Last Admin: 06/29/18 09:53 Dose: 10 mg Ranolazine (Ranexa) 500 mg PO BID [facility] Last Admin: 06/29/18 09:54 Dose: 500 mg Repaglinide (Prandin) 2 mg PO DAILY [facility] Last Admin: 06/29/18 09:54 Dose: 2 mg Roflumilast (Daliresp) 500 mcg PO DAILY [facility] Last Admin: 06/29/18 09:54 Dose: 500 mcg Rosuvastatin Calcium (Crestor) 20 mg PO HS [facility] Last Admin: 06/28/18 21:18 Dose: 20 mg Sacubitril/Valsartan (Entresto 49 Mg-51 Mg) 1 tab PO BID [facility] Last Admin: 06/29/18 09:53 Dose: 1 tab - Labs Labs: 06/29/18 07:59 06/29/18 07:59 PT 12.8 SECONDS (9.7-12.2) H 06/23/18 20:31 INR 1.2 06/23/18 20:31 APTT 33 SECONDS (21-34) 06/23/18 20:31
--- NOTE | 2018-06-29 20:36 | CP.PCM.PN ---
Subjective - Date & Time of Evaluation Date of Evaluation: 06/29/18 Time of Evaluation: 20:36 - Subjective Subjective: CHIEF COMPLAINTS TODAY : AFEBRILE LESS SOB ON EXERTION FACE PUFFY NOT EATING PER ROS. HEENT : N. Resp : No hemoptysis . +VE WHEEZE,RALES Cardio : No anginal CP GI : No abd.pain, n/v ,diarrhea or GI bleeding . 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 Musculoskel : No joint swelling , Derm : No rash Psych : Normal affect. Ext : No swelling ,calf pain PE. Pt. is alert awake in no distress. V.S As noted in the chart Head ,ear nose,throat and eyes : Normal. Neck : Supple with normal carotids. Lungs: POOR AIR ENTRY WITH EXP. WHEEZE Heart : S1 & S2 normal with S4. No murmur. Abd : Soft non tender with normal bowel sounds. Neuro : Moves all ext. with no localized deficit. Ext : No edema with intact pulses.Non tender calves Derm : No rashes or decubitus ulcer. LABS/RADIOLOGY: WBC 8.3 H/H 9.0 PLT 153 LFTS N CREAT 1.5 /BUN 34 GFR 33 Objective - Vital Signs/Intake and Output Vital Signs (last 24 hours): Temp Pulse Resp BP Pulse Ox 97.8 F 102 H 24 88/64 L 99 06/29/18 15:40 06/29/18 15:55 06/29/18 15:40 06/29/18 18:50 06/29/18 15:40 Intake and Output: 06/29/18 06/30/18 18:59 06:59 Intake Total 450 Balance 450 - Medications Medications: Current Medications Aspirin (Ecotrin) 325 mg PO DAILY [facility] Last Admin: 06/29/18 09:53 Dose: 325 mg Enoxaparin Sodium (Lovenox) 40 mg SC DAILY [facility] Last Admin: 06/29/18 09:53 Dose: 40 mg Ergocalciferol (Drisdol 50,000 Intl Units Cap) 1 cap PO QWK [facility] 234 [facility]S [facility] Furosemide (Lasix) 20 mg IVP DAILY [facility] 234 [facility]S [facility] Last Admin: 06/29/18 09:52 Dose: Not Given Cefepime HCl (Maxipime Iv 1 Gm Premix) 1 gm in 50 mls @ 100 mls/hr IVPB Q24H [facility]S [facility]; Protocol Last Admin: 06/29/18 13:44 Dose: 100 mls/hr Insulin Human Regular (Novolin R) 0 unit SC ACHS [facility]S [facility]; Protocol Last Admin: 06/29/18 17:19 Dose: Not Given Metoprolol Tartrate (Lopressor) 25 mg PO BID [facility] 234 [facility]S [facility] Last Admin: 06/29/18 18:50 Dose: Not Given Montelukast Sodium (Singulair) 10 mg PO DAILY [facility] 234 [facility]S [facility] Last Admin: 06/29/18 09:53 Dose: 10 mg Ranolazine (Ranexa) 500 mg PO BID [facility] 234 [facility]S AT [facility] Last Admin: 06/29/18 18:53 Dose: 500 mg Repaglinide (Prandin) 2 mg PO DAILY [facility] 234 [facility]S [facility] Last Admin: 06/29/18 09:54 Dose: 2 mg Roflumilast (Daliresp) 500 mcg PO DAILY [facility] 234 [facility]S AT [facility] Last Admin: 06/29/18 09:54 Dose: 500 mcg Rosuvastatin Calcium (Crestor) 20 mg PO HS [facility] 234 [facility]S AT [facility] Last Admin: 06/28/18 21:18 Dose: 20 mg Sacubitril/Valsartan (Entresto 49 Mg-51 Mg) 1 tab PO BID [facility] 234 [facility]S [facility] Last Admin: 06/29/18 18:50 Dose: Not Given - Labs Labs: 06/29/18 07:59 06/29/18 07:59 PT 12.8 SECONDS (9.7-12.2) H 06/23/18 20:31 INR 1.2 06/23/18 20:31 APTT 33 SECONDS (21-34) 06/23/18 20:31 Assessment and Plan (1) Chr obstructive pulmonary disease w/ acute lower respiratory infxn Status: Acute (2) Respiratory distress Status: Acute (3) CHF exacerbation Status: Acute (4) Cardiomyopathy Status: Acute (5) DM type 2 (diabetes mellitus, type 2) Status: Acute (6) CAD (coronary artery disease) Status: Acute - Assessment and Plan (Free Text) Plan: CONTINUE iv CEFEPIME 1 G iv PIGGYBACK ONCE A DAY DAILY 06/27/18 TO COVER FOR BRONCHOPULMONARY INFECTION AND ACUTE BRONCHITIS. DIURESIS PER PMD. IV STERIODS ORDERED FOR EXACERBATION OF COPD PULMONARY TOILET. DUONEB TREATMENTS.
[2018-06-30] MEDS: (Novolin R) Insulin Human Regular 100 units/ml vial SC SCH ×4 (07:51→21:59)
[2018-06-30 09:36] LABS: BASO % 0.3 % (0.0-2.0); EOS # 0.1 K/uL (0.0-0.7); EOS % 1.3 % (0.0-4.0); HEMOGLOBIN 7.8 g/dL (11.0-16.0); LYMPH # 0.4 K/uL (1.0-4.3); LYMPH % 3.6 % (20.0-40.0); MEAN CELL VOLUME 85.8 fL (81.0-99.0); MEAN CORPUSCULAR HEMOGLOBIN 28.4 pg (27.0-31.0); MEAN CORPUSCULAR HGB CONC 33.1 g/dL (33.0-37.0); MEAN PLATELET VOLUME 10.2 fL (7.2-11.7); MONO # 1.2 K/uL (0.0-0.8); NEUT # 9.2 K/uL (1.8-7.0); NEUT % 83.8 % (50.0-75.0); NRBC % 0.1 % (0.0-2.0); PLATELET COUNT 145 K/uL (130-400); RBC 2.74 Mil/uL (3.80-5.20); RED CELL DISTRIBUTION WIDTH 18.8 % (11.5-14.5); WHITE BLOOD COUNT 10.9 K/uL (4.8-10.8)
[2018-06-30] MEDS: Aspirin 325 mg EC Tablets PO SCH (09:38)
[2018-06-30] MEDS: Enoxaparin 40 mg Syringe SC SCH (09:38)
[2018-06-30] MEDS: Ranolazine 500 mg Extended Release Tablets PO SCH ×2 (09:39→17:07)
[2018-06-30] MEDS: Sacubitril/Valsartan 49-51 Tab PO SCH ×2 (09:39→17:07)
[2018-06-30 10:00] LABS: ALBUMIN 2.5 g/dL (3.5-5.0); CALCIUM 8.8 mg/dl (8.6-10.4)
[2018-06-30] MEDS ORDERED: Ergocalciferol 50,000 Intl Units Cap PO SCH (10:00)
[2018-06-30 10:08] LABS: ANISOCYTOSIS SLIGHT; EOSINOPHIL 1 % (0-4); HYPOCHROMIC SLIGHT; LYMPHOCYTE 2 % (20-40); MONOCYTE 14 % (0-10); NEUTROPHIL 83 % (50-75); NUCLEATED RED BLOOD CELL 1 % (0-0); PLATELET ESTIMATE NORMAL (NORMAL); POIKILOCYTOSIS SLIGHT; TOTAL CELLS COUNTED 100
[2018-06-30 10:09] LABS: BURR CELLS SLIGHT; LARGE PLATELETS PRESENT; OVALOCYTES SLIGHT; TARGET CELLS SLIGHT; TEARDROP CELLS SLIGHT
[2018-06-30 12:32] LABS: HEMOGLOBIN 7.6 g/dL (11.0-16.0)
[2018-06-30] MEDS: Cefepime IV 1 gm in Dextrose 1 GM/50 ML BAG IVPB SCH (13:58)
--- NOTE | 2018-06-30 14:04 | CP.PCM.PN ---
Subjective - Date & Time of Evaluation Date of Evaluation: 06/30/18 Time of Evaluation: 14:03 - Subjective Subjective: CHIEF COMPLAINTS TODAY : PT. FEELS WEAK AND SOB SYSTOLIC BP IS LOW no urine output is NOT CHARTED hemoglobin has dropped d to 7.6 ROS. HEENT : N. Resp : No hemoptysis Cardio : No anginal CPGI : No abd.pain, n/v ,diarrhea or GI bleeding . 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 Musculoskel : No joint swelling , Derm : No rash Psych : Normal affect. Ext : No swelling ,calf pain PE. Pt. is alert awake in no distress. V.S As noted in the chart Head ,ear nose,throat and eyes : Normal. Neck : Supple with normal carotids. Lungs: POOR AIR ENTRY WITH WHEEZING Heart : S1 & S2 normal with S4. No murmur. Abd : Soft non tender with normal bowel sounds. Neuro : Moves all ext. with no localized deficit. Ext : No edema with intact pulses.Non tender calves Derm : No rashes or decubitus ulcer. LABS/RADIOLOGY: sPUTUM SHOWS pSEUDOMO ASSESSMENT/PLAN : DISCUSSED AT LENGTH WITH THE FAMILY MEMBERS THAT THE PATIENT SHOULD DRINK AND EAT HER MEALS. pATIENT IS VERY WEAK WITH LACK OF FOOD. cONTINUE SMALL DOSE AND BRONCHODILATORS . initially we will give 1 unit of packed in view of patient's history of CHF and unable to give DUE TO BUT LOW BLOOD PRESSURE Objective - Vital Signs/Intake and Output Vital Signs (last 24 hours): Temp Pulse Resp BP Pulse Ox 98.2 F 109 H 18 91/40 L 96 06/30/18 08:53 06/30/18 12:00 06/30/18 08:53 06/30/18 09:38 06/30/18 08:53 Intake and Output: 06/30/18 06/30/18 11:59 23:59 Intake Total 0 Balance 0 - Medications Medications: Current Medications Aspirin (Ecotrin) 325 mg PO DAILY [facility] Last Admin: 06/30/18 09:38 Dose: 325 mg Enoxaparin Sodium (Lovenox) 40 mg SC DAILY [facility] Last Admin: 06/30/18 09:38 Dose: 40 mg Ergocalciferol (Drisdol 50,000 Intl Units Cap) 1 cap PO QWK [facility] Last Admin: 06/30/18 09:38 Dose: 1 cap Furosemide (Lasix) 20 mg IVP DAILY [facility] Last Admin: 06/30/18 09:37 Dose: Not Given Cefepime HCl (Maxipime Iv 1 Gm Premix) 1 gm in 50 mls @ 100 mls/hr IVPB Q24H [facility]; Protocol Last Admin: 06/30/18 13:58 Dose: 100 mls/hr Insulin Human Regular (Novolin R) 0 unit SC ACHS [facility]; Protocol Last Admin: 06/30/18 12:24 Dose: 3 units Metoprolol Tartrate (Lopressor) 25 mg PO BID [facility] Last Admin: 06/30/18 09:38 Dose: Not Given Montelukast Sodium (Singulair) 10 mg PO DAILY [facility] Last Admin: 06/30/18 09:38 Dose: 10 mg Ranolazine (Ranexa) 500 mg PO BID [facility] Last Admin: 06/30/18 09:39 Dose: 500 mg Repaglinide (Prandin) 2 mg PO DAILY [facility] Last Admin: 06/30/18 09:39 Dose: 2 mg Roflumilast (Daliresp) 500 mcg PO DAILY [facility] Last Admin: 06/30/18 09:39 Dose: 500 mcg Rosuvastatin Calcium (Crestor) 20 mg PO HS [facility] Last Admin: 06/29/18 21:32 Dose: 20 mg Sacubitril/Valsartan (Entresto 49 Mg-51 Mg) 1 tab PO BID [facility] Last Admin: 06/30/18 09:39 Dose: 1 tab - Labs Labs: 06/30/18 12:18 06/30/18 09:30 PT 12.8 SECONDS (9.7-12.2) H 06/23/18 20:31 INR 1.2 06/23/18 20:31 APTT 33 SECONDS (21-34) 06/23/18 20:31
--- NOTE | 2018-06-30 14:21 | CP.PCM.PN ---
Subjective - Date & Time of Evaluation Date of Evaluation: 06/30/18 Time of Evaluation: 14:21 - Subjective Subjective: CHIEF COMPLAINTS TODAY : AFEBRILE SOB+VE WEAK/AND DROWSY ROS.(on observation ) HEENT : N. Resp : No hemoptysis . +VE WHEEZE,RALES Cardio : No anginal CP GI : No abd.pain, n/v ,diarrhea or GI bleeding . 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 Musculoskel : No joint swelling , Derm : No rash Psych : Normal affect. Ext : No swelling ,calf pain PE. Pt. is DROWSY/WEAK, in no distress. V.S As noted in the chart Head ,ear nose,throat and eyes : Normal. Neck : Supple with normal carotids. Lungs: POOR AIR ENTRY WITH EXP./INSPIRATORY WHEEZE Heart : S1 & S2 normal with S4. No murmur. Abd : Soft non tender with normal bowel sounds. Neuro : Moves all ext. with no localized deficit. Ext : No edema with intact pulses.Non tender calves Derm : No rashes or decubitus ulcer. LABS/RADIOLOGY: WBC 8.3 H/H LOW LFTS N CREAT 1.7 /BUN 59 GFR 28 Objective - Vital Signs/Intake and Output Vital Signs (last 24 hours): Temp Pulse Resp BP Pulse Ox 98.2 F 109 H 18 91/40 L 96 06/30/18 08:53 06/30/18 12:00 06/30/18 08:53 06/30/18 09:38 06/30/18 08:53 Intake and Output: 06/30/18 06/30/18 06:59 18:59 Intake Total 250 Balance 250 - Medications Medications: Current Medications Aspirin (Ecotrin) 325 mg PO DAILY [facility] Last Admin: 06/30/18 09:38 Dose: 325 mg Enoxaparin Sodium (Lovenox) 40 mg SC DAILY [facility] Last Admin: 06/30/18 09:38 Dose: 40 mg Ergocalciferol (Drisdol 50,000 Intl Units Cap) 1 cap PO QWK [facility] Last Admin: 06/30/18 09:38 Dose: 1 cap Furosemide (Lasix) 20 mg IVP DAILY [facility] Last Admin: 06/30/18 09:37 Dose: Not Given Cefepime HCl (Maxipime Iv 1 Gm Premix) 1 gm in 50 mls @ 100 mls/hr IVPB Q24H [facility]; Protocol Last Admin: 06/30/18 13:58 Dose: 100 mls/hr Insulin Human Regular (Novolin R) 0 unit SC ACHS [facility]; Protocol Last Admin: 06/30/18 12:24 Dose: 3 units Metoprolol Tartrate (Lopressor) 25 mg PO BID [facility] Last Admin: 06/30/18 09:38 Dose: Not Given Montelukast Sodium (Singulair) 10 mg PO DAILY [facility] Last Admin: 06/30/18 09:38 Dose: 10 mg Ranolazine (Ranexa) 500 mg PO BID [facility] Last Admin: 06/30/18 09:39 Dose: 500 mg Repaglinide (Prandin) 2 mg PO DAILY [facility] Last Admin: 06/30/18 09:39 Dose: 2 mg Roflumilast (Daliresp) 500 mcg PO DAILY [facility] Last Admin: 06/30/18 09:39 Dose: 500 mcg Rosuvastatin Calcium (Crestor) 20 mg PO HS [facility] Last Admin: 06/29/18 21:32 Dose: 20 mg Sacubitril/Valsartan (Entresto 49 Mg-51 Mg) 1 tab PO BID [facility] Last Admin: 06/30/18 09:39 Dose: 1 tab - Labs Labs: 06/30/18 12:18 06/30/18 09:30 PT 12.8 SECONDS (9.7-12.2) H 06/23/18 20:31 INR 1.2 06/23/18 20:31 APTT 33 SECONDS (21-34) 06/23/18 20:31 Assessment and Plan (1) Chr obstructive pulmonary disease w/ acute lower respiratory infxn Status: Acute (2) Respiratory distress Status: Acute (3) CHF exacerbation Status: Acute (4) Cardiomyopathy Status: Acute (5) DM type 2 (diabetes mellitus, type 2) Status: Acute (6) CAD (coronary artery disease) Status: Acute (7) Anemia Assessment & Plan: H/H LOW FOR I UNIT PRBC PER PMD. Status: Acute - Assessment and Plan (Free Text) Plan: DECREASE iv CEFEPIME 500MG iv PIGGYBACK ONCE A DAY DAILY 06/27/18 TO COVER FOR BRONCHOPULMONARY INFECTION AND ACUTE BRONCHITIS. DIURESIS PER PMD. IV STERIODS ORDERED FOR EXACERBATION OF COPD PULMONARY TOILET. DUONEB TREATMENTS. WATCH H/H ? TRANSFUSION DISCUSSED WITH AT BEDSIDE.
[2018-07-01 07:56] LABS: BASO # 0.1 K/uL (0.0-0.2); EOS # 0.3 K/uL (0.0-0.7); LYMPH # 0.5 K/uL (1.0-4.3); MONO # 1.1 K/uL (0.0-0.8); NRBC % 0.1 % (0.0-2.0)
[2018-07-01 08:02] LABS: BASO % 0.6 % (0.0-2.0); EOS % 2.9 % (0.0-4.0); LYMPH % 4.5 % (20.0-40.0); MEAN CELL VOLUME 84.9 fL (81.0-99.0); MEAN CORPUSCULAR HEMOGLOBIN 28.5 pg (27.0-31.0); MEAN CORPUSCULAR HGB CONC 33.6 g/dL (33.0-37.0); MONO % 10.1 % (0.0-10.0); NEUT # 8.9 K/uL (1.8-7.0); NEUT % 81.9 % (50.0-75.0); RBC 3.15 Mil/uL (3.80-5.20); RED CELL DISTRIBUTION WIDTH 17.1 % (11.5-14.5); WHITE BLOOD COUNT 10.8 K/uL (4.8-10.8)
[2018-07-01 08:07] LABS: PLATELET COUNT 126 K/uL (130-400)
[2018-07-01 08:42] LABS: ALBUMIN 2.6 g/dL (3.5-5.0)
[2018-07-01 09:00] LABS: ANISOCYTOSIS SLIGHT; EOSINOPHIL 5 % (0-4); HYPOCHROMIC SLIGHT; LYMPHOCYTE 1 % (20-40); MONOCYTE 9 % (0-10); NEUTROPHIL 85 % (50-75); PLATELET ESTIMATE NORMAL (NORMAL); TOTAL CELLS COUNTED 100
[2018-07-01] MEDS: (Novolin R) Insulin Human Regular 100 units/ml vial SC SCH ×4 (09:00→21:50)
[2018-07-01 09:01] LABS: POLYCHROMIC SLIGHT
[2018-07-01] MEDS: Aspirin 325 mg EC Tablets PO SCH (10:20)
[2018-07-01] MEDS: Sacubitril/Valsartan 49-51 Tab PO SCH ×2 (10:24→21:49)
[2018-07-01] MEDS: Enoxaparin 40 mg Syringe SC SCH (10:26)
[2018-07-01] MEDS: Ranolazine 500 mg Extended Release Tablets PO SCH ×2 (10:29→18:11)
--- NOTE | 2018-07-01 13:42 | CP.PCM.PN ---
Subjective - Date & Time of Evaluation Date of Evaluation: 07/01/18 Time of Evaluation: 13:40 - Subjective Subjective: CHIEF COMPLAINTS TODAY : PT. FEELS WEAK AND SOB Systolic bp now 120's Hgup to 9.6 ROS. HEENT : N. Resp : No hemoptysis Cardio : No anginal CPGI : No abd.pain, n/v ,diarrhea or GI bleeding . 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 Musculoskel : No joint swelling , Derm : No rash Psych : Normal affect. Ext : No swelling ,calf pain PE. Pt. is alert awake in no distress. V.S As noted in the chart Head ,ear nose,throat and eyes : Normal. Neck : Supple with normal carotids. Lungs: POOR AIR ENTRY WITH WHEEZING Heart : S1 & S2 normal with S4. No murmur. Abd : Soft non tender with normal bowel sounds. Neuro : Moves all ext. with no localized deficit. Ext : No edema with intact pulses.Non tender calves Derm : No rashes or decubitus ulcer. LABS/RADIOLOGY: BUN 60, CR 2.0 ASSESSMENT/PLAN : D/C DELIRESP MONITOR OUT PUT PERIPHERAL HYPER. Objective - Vital Signs/Intake and Output Vital Signs (last 24 hours): Temp Pulse Resp BP Pulse Ox 97.4 F L 113 H 29 H 128/67 96 07/01/18 07:00 07/01/18 07:00 07/01/18 07:00 07/01/18 10:22 07/01/18 07:00 Intake and Output: 07/01/18 07/01/18 11:59 23:59 Intake Total 0 Balance 0 - Medications Medications: Current Medications Aspirin (Ecotrin) 325 mg PO DAILY [facility] Last Admin: 07/01/18 10:20 Dose: 325 mg Enoxaparin Sodium (Lovenox) 40 mg SC DAILY [facility] Ergocalciferol (Drisdol 50,000 Intl Units Cap) 1 cap PO QWK [facility] Last Admin: 06/30/18 09:38 Dose: 1 cap Furosemide (Lasix) 20 mg IVP DAILY [facility] Last Admin: 07/01/18 10:22 Dose: 20 mg Cefepime HCl (Maxipime Iv 1 Gm Premix) 1 gm in 50 mls @ 100 mls/hr IVPB Q24H [facility]; Protocol Last Admin: 06/30/18 13:58 Dose: 100 mls/hr Cefepime HCl 0.5 gm/ Dextrose 50 mls @ 100 mls/hr IVPB Q24H [facility]; Protocol Last Admin: 07/01/18 10:30 Dose: 100 mls/hr Multivitamins/Vitamin C 10 ml/Chromium/Copper/Manganese/Zinc 1 ml/ Amino Acids 1,011 mls @ 50 mls/hr IV .[id number] [facility] Stop: 07/02/18 14:00 Amino Acids (Clinimix 4.25/5 % "E" (1000 Ml)) 1,000 mls @ 50 mls/hr IV .Q20H [facility] Stop: 07/02/18 18:00 Insulin Human Regular (Novolin R) 0 unit SC ACHS [facility]; Protocol Last Admin: 07/01/18 12:28 Dose: 2 units Metoprolol Tartrate (Lopressor) 25 mg PO BID [facility] Last Admin: 07/01/18 10:21 Dose: 25 mg Montelukast Sodium (Singulair) 10 mg PO DAILY [facility] Last Admin: 07/01/18 10:33 Dose: 10 mg Ranolazine (Ranexa) 500 mg PO BID [facility] Last Admin: 07/01/18 10:29 Dose: 500 mg Repaglinide (Prandin) 2 mg PO DAILY [facility] Last Admin: 07/01/18 10:24 Dose: 2 mg Roflumilast (Daliresp) 500 mcg PO DAILY [facility] Last Admin: 07/01/18 10:27 Dose: 500 mcg Rosuvastatin Calcium (Crestor) 20 mg PO HS [facility] Last Admin: 06/30/18 21:47 Dose: 20 mg Sacubitril/Valsartan (Entresto 49 Mg-51 Mg) 1 tab PO BID [facility] Last Admin: 07/01/18 10:24 Dose: 1 tab - Labs Labs: 07/01/18 07:51 07/01/18 07:51 PT 12.8 SECONDS (9.7-12.2) H 06/23/18 20:31 INR 1.2 06/23/18 20:31 APTT 33 SECONDS (21-34) 06/23/18 20:31
[2018-07-01] MEDS: Cefepime IV 1 gm in Dextrose 1 GM/50 ML BAG IVPB SCH (14:45)
[2018-07-01] MEDS ORDERED: PPN # 1 IV SCH (18:00)
[2018-07-01] MEDS ORDERED: Albuterol-Ipratrop 3 mg / 0.5 (3 ml) UD INH STA (21:01)
[2018-07-01] MEDS ORDERED: Albuterol 0.042% Inhal Sol (1.25 mg/3 mL) UD INH PRN (21:02)
--- NOTE | 2018-07-01 21:12 | CP.PCM.PCO ---
Addendum Addendum: 07/01/18 21:10 House resident paged for increasing SOB. Placed patient on BiPAP and gave stat Duoneb treatment. She was more comfortable. SpO2 99%. Ordered Q6H Duoneb scheduled and PRN Albuterol. CXR reviewed showinf venous congestion, similar to previous. Patient has known CHF and is being treated with appropriate medicatio ns. No additional Lasix given due to SBP in 90s.
--- NOTE | 2018-07-01 23:38 | CP.PCM.PN ---
Subjective - Date & Time of Evaluation Date of Evaluation: 07/01/18 Time of Evaluation: 23:38 - Subjective Subjective: CHIEF COMPLAINTS TODAY : EVENTS NOTED. AFEBRILE SOB+VE WEAK/AND DROWSY SEEN BY RESIDENT AND PLACED ON BIPAP ROS.(on observation ) HEENT : N. Resp : No hemoptysis . +VE WHEEZE,RALES Cardio : No anginal CP GI : No abd.pain, n/v ,diarrhea or GI bleeding . 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 Musculoskel : No joint swelling , Derm : No rash Psych : Normal affect. Ext : No swelling ,calf pain PE. Pt. is DROWSY/WEAK, in no distress. V.S As noted in the chart Head ,ear nose,throat and eyes : Normal. Neck : Supple with normal carotids. Lungs: POOR AIR ENTRY WITH EXP./INSPIRATORY WHEEZE Heart : S1 & S2 normal with S4. No murmur. Abd : Soft non tender with normal bowel sounds. Neuro : Moves all ext. with no localized deficit. Ext : No edema with intact pulses.Non tender calves Derm : No rashes or decubitus ulcer. LABS/RADIOLOGY: WBC 10.8 H/H 9.0/26.7 PLT 126 LOW LFTS N CREAT 2.0 /BUN 66 ON LASIX Objective - Vital Signs/Intake and Output Vital Signs (last 24 hours): Temp Pulse Resp BP Pulse Ox 97.9 F 102 H 22 105/60 100 07/01/18 15:53 07/01/18 16:00 07/01/18 15:53 07/01/18 18:10 07/01/18 15:53 Intake and Output: 07/01/18 07/02/18 18:59 06:59 Intake Total 450 250 Output Total 425 Balance 25 250 - Medications Medications: Current Medications Albuterol Sulfate (Albuterol 0.042% Inhal Bell (1.25mg/3ml) Ud) 1.25 mg INH RQ2 PRN PRN Reason: Wheezing Albuterol/Ipratropium (Duoneb 3 Mg/0.5 Mg (3 Ml) Ud) 3 ml INH RQ6 JONNA Aspirin (Ecotrin) 325 mg PO DAILY [facility] Last Admin: 07/01/18 10:20 Dose: 325 mg Ergocalciferol (Drisdol 50,000 Intl Units Cap) 1 cap PO QWK [facility] Last Admin: 06/30/18 09:38 Dose: 1 cap Furosemide (Lasix) 20 mg IVP DAILY [facility] Last Admin: 07/01/18 10:22 Dose: 20 mg Heparin Sodium (Porcine) (Heparin) 5,000 units SC Q8 [facility] Last Admin: 07/01/18 21:49 Dose: 5,000 units Cefepime HCl 0.5 gm/ Dextrose 50 mls @ 100 mls/hr IVPB Q24H [facility]; Protocol Last Admin: 07/01/18 10:30 Dose: 100 mls/hr Multivitamins/Vitamin C 10 ml/Chromium/Copper/Manganese/Zinc 1 ml/ Amino Acids 1,011 mls @ 50 mls/hr IV .[id number] [facility] Stop: 07/02/18 14:00 Last Admin: 07/01/18 17:47 Dose: 50 mls/hr Amino Acids (Clinimix 4.25/5 % "E" (1000 Ml)) 1,000 mls @ 50 mls/hr IV .Q20H [facility] Stop: 07/02/18 18:00 Insulin Human Regular (Novolin R) 0 unit SC ACHS [facility]; Protocol Last Admin: 07/01/18 21:50 Dose: Not Given Metoprolol Tartrate (Lopressor) 25 mg PO BID [facility] Last Admin: 07/01/18 18:10 Dose: 25 mg Montelukast Sodium (Singulair) 10 mg PO DAILY [facility] Last Admin: 07/01/18 10:33 Dose: 10 mg Ranolazine (Ranexa) 500 mg PO BID [facility] Last Admin: 07/01/18 18:11 Dose: 500 mg Repaglinide (Prandin) 2 mg PO DAILY [facility] Last Admin: 07/01/18 10:24 Dose: 2 mg Roflumilast (Daliresp) 500 mcg PO DAILY [facility] Last Admin: 07/01/18 10:27 Dose: 500 mcg Rosuvastatin Calcium (Crestor) 20 mg PO HS [facility] Last Admin: 07/01/18 21:49 Dose: Not Given Sacubitril/Valsartan (Entresto 49 Mg-51 Mg) 1 tab PO BID [facility] Last Admin: 07/01/18 21:49 Dose: Not Given - Labs Labs: 07/01/18 07:51 07/01/18 07:51 PT 12.8 SECONDS (9.7-12.2) H 06/23/18 20:31 INR 1.2 06/23/18 20:31 APTT 33 SECONDS (21-34) 06/23/18 20:31 Assessment and Plan (1) Chr obstructive pulmonary disease w/ acute lower respiratory infxn Status: Acute (2) Respiratory distress Status: Acute (3) CHF exacerbation Status: Acute (4) Cardiomyopathy Status: Acute (5) DM type 2 (diabetes mellitus, type 2) Status: Acute (6) CAD (coronary artery disease) Status: Acute (7) Anemia Status: Acute - Assessment and Plan (Free Text) Plan: ON iv CEFEPIME 500MG iv PIGGYBACK ONCE A DAY DAILY 06/27/18 TO COVER FOR BRONCHOPULMONARY INFECTION AND ACUTE BRONCHITIS. DIURESIS PER PMD. IV STERIODS ORDERED FOR EXACERBATION OF COPD PULMONARY CONSULT IN PROGRESS DUONEB TREATMENTS. PT STARTED ON HYPER ALIMENTATION, REPORTS PT DOES NT WANT TO EAT ANYTHING. F/U CXR. MONITOR RENAL FUNCTION CLOSELY.
[2018-07-02] MEDS: Albuterol-Ipratrop 3 mg / 0.5 (3 ml) UD INH SCH ×4 (02:04→21:02)
[2018-07-02 06:48] LABS: ALB/GLOB RATIO 1.1 (1.0-2.1); ALBUMIN 2.9 g/dL (3.5-5.0); CALCIUM 9.2 mg/dl (8.6-10.4)
[2018-07-02 06:51] LABS: BASO % 0.4 % (0.0-2.0); EOS # 0.1 K/uL (0.0-0.7); EOS % 0.8 % (0.0-4.0); HEMOGLOBIN 8.6 g/dL (11.0-16.0); LYMPH # 0.3 K/uL (1.0-4.3); LYMPH % 2.4 % (20.0-40.0); MEAN CELL VOLUME 87.6 fL (81.0-99.0); MEAN CORPUSCULAR HEMOGLOBIN 28.3 pg (27.0-31.0); MEAN CORPUSCULAR HGB CONC 32.3 g/dL (33.0-37.0); MONO % 9.5 % (0.0-10.0); NEUT # 9.2 K/uL (1.8-7.0); NEUT % 86.9 % (50.0-75.0); NRBC % 0.1 % (0.0-2.0); PLATELET COUNT 113 K/uL (130-400); RBC 3.03 Mil/uL (3.80-5.20); RED CELL DISTRIBUTION WIDTH 17.7 % (11.5-14.5); WHITE BLOOD COUNT 10.6 K/uL (4.8-10.8)
[2018-07-02] MEDS: (Novolin R) Insulin Human Regular 100 units/ml vial SC SCH ×4 (07:24→22:23)
[2018-07-02 08:50] LABS: ANISOCYTOSIS SLIGHT; EOSINOPHIL 1 % (0-4); HYPOCHROMIC SLIGHT; LARGE PLATELETS PRESENT; LYMPHOCYTE 2 % (20-40); MONOCYTE 9 % (0-10); NEUTROPHIL 88 % (50-75); PLATELET ESTIMATE SLIGHTLY DECREASED (NORMAL); POLYCHROMIC SLIGHT; TOTAL CELLS COUNTED 100; TOXIC GRANULATION PRESENT
[2018-07-02] MEDS: Ranolazine 500 mg Extended Release Tablets PO SCH ×2 (09:16→17:28)
[2018-07-02] MEDS: Aspirin 325 mg EC Tablets PO SCH (09:16)
[2018-07-02] MEDS ORDERED: Enoxaparin 40 mg Syringe SC SCH (10:00)
[2018-07-02] MEDS: Sacubitril/Valsartan 49-51 Tab PO SCH ×2 (12:32→17:27)
[2018-07-02] MEDS ORDERED: PPN # 2 IV SCH (14:00)
--- NOTE | 2018-07-02 14:03 | CP.PCM.CON ---
History of Present Illness - History of Present Illness History of Present Illness: reason for consultation: respiratory distress/pneumonia 87-year-old female with history of ischemic cardiomyopathy with low ejection fraction,, coronary artery disease status post stent placement, AICD, diabetes, COPD who was admitted with increasing shortness of breath and being treated for pneumonia/COPD exacerbation. Yesterday patient went in respiratory distress and was placed on BiPAP. Chest x-ray showed worsening pneumonia/infiltrate involving the whole right lung. Patient lethargic on BiPAP, does not follow commands Review of Systems - Review of Systems Systems not reviewed;Unavailable: Respiratory Distress, Altered Mental Status Past Patient History - Infectious Disease Hx of Infectious Diseases: None - Tetanus Immunizations Tetanus Immunization: Unknown - Past Medical History & Family History Past Medical History?: Yes - Past Social History Smoking Status: Never Smoked - CARDIAC Hx Cardiac Disorders: Yes (CAD) Hx Hypercholesterolemia: Yes - PULMONARY Hx Chronic Obstructive Pulmonary Disease (COPD): Yes - NEUROLOGICAL Hx Transient Ischemic Attacks (TIA): Yes - HEENT Hx HEENT Problems: No - RENAL Hx Chronic Kidney Disease: No - ENDOCRINE/METABOLIC Hx Diabetes Mellitus Type 2: Yes - HEMATOLOGICAL/ONCOLOGICAL Hx Anemia: Yes - INTEGUMENTARY Hx Dermatological Problems: No - MUSCULOSKELETAL/RHEUMATOLOGICAL Hx Arthritis: Yes Hx Falls: No - GASTROINTESTINAL Hx Gastrointestinal Disorders: No - GENITOURINARY/GYNECOLOGICAL Hx Genitourinary Disorders: No - PSYCHIATRIC Hx Anxiety: Yes Hx Substance Use: No - SURGICAL HISTORY Hx Appendectomy: Yes Hx Coronary Stent: Yes - ANESTHESIA Hx Anesthesia: Yes Hx Anesthesia Reactions: No Hx Malignant Hyperthermia: No Meds Allergies/Adverse Reactions: Allergies Allergy/AdvReac Type Severity Reaction Status Date / Time clopidogrel Allergy Mild SWELLING Verified 12/22/17 13:34 - Medications Medications: Current Medications Albuterol Sulfate (Albuterol 0.042% Inhal Bell (1.25mg/3ml) Ud) 1.25 mg INH RQ2 PRN PRN Reason: Wheezing Albuterol/Ipratropium (Duoneb 3 Mg/0.5 Mg (3 Ml) Ud) 3 ml INH RQ6 [facility] Last Admin: 07/02/18 13:54 Dose: 3 ml Aspirin (Ecotrin) 325 mg PO DAILY [facility] Last Admin: 07/02/18 09:16 Dose: 325 mg Ergocalciferol (Drisdol 50,000 Intl Units Cap) 1 cap PO QWK [facility] Last Admin: 06/30/18 09:38 Dose: 1 cap Furosemide (Lasix) 20 mg IVP DAILY [facility] Last Admin: 07/02/18 09:09 Dose: 20 mg Heparin Sodium (Porcine) (Heparin) 5,000 units SC Q8 [facility] Last Admin: 07/02/18 06:38 Dose: 5,000 units Cefepime HCl 0.5 gm/ Dextrose 50 mls @ 100 mls/hr IVPB Q24H [facility]; Protocol Last Admin: 07/02/18 09:35 Dose: 100 mls/hr Amino Acids (Clinimix 4.25/5 % "E" (1000 Ml)) 1,000 mls @ 50 mls/hr IV .Q20H [facility] Stop: 07/02/18 18:00 Multivitamins/Vitamin C 10 ml/Chromium/Copper/Manganese/Zinc 1 ml/ Amino Acids 1,011 mls @ 50 mls/hr IV .[id number] [facility] Stop: 07/03/18 14:00 Amino Acids (Clinimix 4.25/5 % "E" (1000 Ml)) 1,000 mls @ 50 mls/hr IV .Q20H [facility] Stop: 07/03/18 18:00 Insulin Human Regular (Novolin R) 0 unit SC ACHS [facility]; Protocol Last Admin: 07/02/18 12:31 Dose: 4 units Metoprolol Tartrate (Lopressor) 25 mg PO BID [facility] Last Admin: 07/02/18 09:11 Dose: 25 mg Montelukast Sodium (Singulair) 10 mg PO DAILY [facility] Last Admin: 07/02/18 09:16 Dose: 10 mg Ranolazine (Ranexa) 500 mg PO BID [facility] Last Admin: 07/02/18 09:16 Dose: 500 mg Repaglinide (Prandin) 2 mg PO DAILY [facility] Last Admin: 07/02/18 09:16 Dose: 2 mg Roflumilast (Daliresp) 500 mcg PO DAILY [facility] Last Admin: 07/01/18 10:27 Dose: 500 mcg Rosuvastatin Calcium (Crestor) 20 mg PO HS [facility] Last Admin: 07/01/18 21:49 Dose: Not Given Sacubitril/Valsartan (Entresto 49 Mg-51 Mg) 1 tab PO BID [facility] Last Admin: 07/02/18 12:32 Dose: 1 tab Physical Exam - Head Exam Head Exam: ATRAUMATIC, NORMOCEPHALIC - ENT Exam ENT Exam: Mucous Membranes Moist - Neck Exam Neck exam: Positive for: Normal Inspection - Respiratory Exam Respiratory Exam: Decreased Breath Sounds - Cardiovascular Exam Cardiovascular Exam: REGULAR RHYTHM - GI/Abdominal Exam GI & Abdominal Exam: Normal Bowel Sounds, Soft Results - Vital Signs Recent Vital Signs: Last Vital Signs Temp 97.5 F L 07/02/18 09:01 Pulse 103 H 07/02/18 09:01 Resp 18 07/02/18 09:01 BP 148/79 07/02/18 09:11 Pulse Ox 96 07/02/18 09:01 - Labs Result Diagrams: 07/02/18 06:28 07/02/18 06:28 Labs: Laboratory Results - last 24 hr 07/01/18 07/01/18 07/02/18 16:22 21:09 06:28 WBC 10.6 RBC 3.03 L Hgb 8.6 L Hct 26.5 L MCV 87.6 D MCH 28.3 MCHC 32.3 L RDW 17.7 H Plt Count 113 L MPV 10.0 Neut % (Auto) 86.9 H Lymph % (Auto) 2.4 L [place] % (Auto) 9.5 Eos % (Auto) 0.8 Baso % (Auto) 0.4 Neut # (Auto) 9.2 H Lymph # (Auto) 0.3 L [place] # (Auto) 1.0 H Eos # (Auto) 0.1 Baso # (Auto) 0.0 Neutrophils % (Manual) 88 H Lymphocytes % (Manual) 2 L Monocytes % (Manual) 9 Eosinophils % (Manual) 1 Toxic Granulation Present Platelet Estimate Slightly decreased L Large Platelets Present Polychromasia Slight Hypochromasia (manual) Slight Anisocytosis (manual) Slight Sodium Potassium Chloride Carbon Dioxide Anion Gap BUN Creatinine Est GFR ( Amer) Est GFR (Non-Af Amer) POC Glucose (mg/dL) 114 H 171 H Random Glucose Calcium Total Bilirubin AST ALT Alkaline Phosphatase Total Protein Albumin Globulin Albumin/Globulin Ratio 07/02/18 07/02/18 07/02/18 06:28 06:55 08:28 WBC RBC Hgb Hct MCV MCH MCHC RDW Plt Count MPV Neut % (Auto) Lymph % (Auto) [place] % (Auto) Eos % (Auto) Baso % (Auto) Neut # (Auto) Lymph # (Auto) [place] # (Auto) Eos # (Auto) Baso # (Auto) Neutrophils % (Manual) Lymphocytes % (Manual) Monocytes % (Manual) Eosinophils % (Manual) Toxic Granulation Platelet Estimate Large Platelets Polychromasia Hypochromasia (manual) Anisocytosis (manual) Sodium 134 Potassium 5.2 Chloride 102 Carbon Dioxide 22 Anion Gap 15 BUN 64 H Creatinine 2.3 H Est GFR ( Amer) 24 Est GFR (Non-Af Amer) 20 POC Glucose (mg/dL) 261 H 278 H Random Glucose 256 H Calcium 9.2 Total Bilirubin 0.7 AST 47 H D ALT 27 Alkaline Phosphatase 137 H D Total Protein 5.6 L Albumin 2.9 L Globulin 2.7 Albumin/Globulin Ratio 1.1 07/02/18 11:51 WBC RBC Hgb Hct MCV MCH MCHC RDW Plt Count MPV Neut % (Auto) Lymph % (Auto) [place] % (Auto) Eos % (Auto) Baso % (Auto) Neut # (Auto) Lymph # (Auto) [place] # (Auto) Eos # (Auto) Baso # (Auto) Neutrophils % (Manual) Lymphocytes % (Manual) Monocytes % (Manual) Eosinophils % (Manual) Toxic Granulation Platelet Estimate Large Platelets Polychromasia Hypochromasia (manual) Anisocytosis (manual) Sodium Potassium Chloride Carbon Dioxide Anion Gap BUN Creatinine Est GFR ( Amer) Est GFR (Non-Af Amer) POC Glucose (mg/dL) 270 H Random Glucose Calcium Total Bilirubin AST ALT Alkaline Phosphatase Total Protein Albumin Globulin Albumin/Globulin Ratio Assessment & Plan (1) Acute respiratory failure with hypoxia Status: Acute Comment: worsening pneumonia. Continue IV antibiotics. Continue BiPAP. Case discussed with family at length and possibility of intubation/CPR,. according to family patient wishes were not to put on life support. will inform me after discussing with other family members. Followup ABG (2) CHF exacerbation Status: Acute (3) COPD exacerbation Status: Acute (4) Cardiomyopathy Status: Acute (5) Pneumonia Status: Acute
--- NOTE | 2018-07-02 14:59 | CP.PCM.PN ---
Subjective - Date & Time of Evaluation Date of Evaluation: 07/02/18 Time of Evaluation: 14:58 - Subjective Subjective: CHIEF COMPLAINTS TODAY : PATIENT IS DROWSY AND LETHARGIC. bLOOD PRESSURE IS NOW STABLE nO URINE OUTPUT DOCUMENTED. wORSENING RENAL FUNCTION AND RESPIRATORY SYSTEM ROS. HEENT : N. Resp : No hemoptysis Cardio : No anginal CPGI : No abd.pain, n/v ,diarrhea or GI bleeding . BLOCKMASON : No headache, vertigo, focal deficit. Musculoskel : No joint swelling , Derm : No rash Psych : Normal affect. Ext : No swelling ,calf pain PE. Pt. is alert awake in no distress. V.S As noted in the chart Head ,ear nose,throat and eyes : Normal. Neck : Supple with normal carotids. Lungs: POOR AIR ENTRY WITH WHEEZING Heart : S1 & S2 normal with S4. No murmur. Abd : Soft non tender with normal bowel sounds. Neuro : Moves all ext. with no localized deficit. Ext : No edema with intact pulses.Non tender calves Derm : No rashes or decubitus ulcer. LABS/RADIOLOGY: BUN 60, CR 2.0 ASSESSMENT/PLAN : LAST NIGHT PATIENT WAS EVA SINCE THEN OXYGENATION HAS IMPROVED cHEST X-RAY SHOWS WORSENING PNEUMONIA OR RIGHT MORE THAN LEFT bun AND CREATININE TRENDING UPWARDS pATIENT ON PERIPHERAL HYPERAL. dISCUSSED WITH ABOUT PATIENT'S CONDITION Objective - Vital Signs/Intake and Output Vital Signs (last 24 hours): Temp Pulse Resp BP Pulse Ox 97.5 F L 7 L 18 148/79 96 07/02/18 09:01 07/02/18 14:13 07/02/18 09:01 07/02/18 09:11 07/02/18 09:01 - Medications Medications: Current Medications Albuterol Sulfate (Albuterol 0.042% Inhal Bell (1.25mg/3ml) Ud) 1.25 mg INH RQ2 PRN PRN Reason: Wheezing Albuterol/Ipratropium (Duoneb 3 Mg/0.5 Mg (3 Ml) Ud) 3 ml INH RQ6 [facility] [place] Last Admin: 07/02/18 13:54 Dose: 3 ml Aspirin (Ecotrin) 325 mg PO DAILY [facility] [place] Last Admin: 07/02/18 09:16 Dose: 325 mg Ergocalciferol (Drisdol 50,000 Intl Units Cap) 1 cap PO QWK [facility] [place] Last Admin: 06/30/18 09:38 Dose: 1 cap Furosemide (Lasix) 20 mg IVP DAILY [facility] [place] Last Admin: 07/02/18 09:09 Dose: 20 mg Heparin Sodium (Porcine) (Heparin) 5,000 units SC Q8 [facility] [place] Last Admin: 07/02/18 14:20 Dose: 5,000 units Cefepime HCl 0.5 gm/ Dextrose 50 mls @ 100 mls/hr IVPB Q24H [facility] [place]; Protocol Last Admin: 07/02/18 09:35 Dose: 100 mls/hr Amino Acids (Clinimix 4.25/5 % "E" (1000 Ml)) 1,000 mls @ 50 mls/hr IV .Q20H [facility] [place] Stop: 07/02/18 18:00 Last Admin: 07/02/18 14:04 Dose: 50 mls/hr Multivitamins/Vitamin C 10 ml/Chromium/Copper/Manganese/Zinc 1 ml/ Amino Acids 1,011 mls @ 50 mls/hr IV .[id number] [facility] [place] Stop: 07/03/18 14:00 Amino Acids (Clinimix 4.25/5 % "E" (1000 Ml)) 1,000 mls @ 50 mls/hr IV .Q20H [facility] [place] Stop: 07/03/18 18:00 Insulin Human Regular (Novolin R) 0 unit SC ACHS [facility] [place]; Protocol Last Admin: 07/02/18 12:31 Dose: 4 units Metoprolol Tartrate (Lopressor) 25 mg PO BID [facility] [place] Last Admin: 07/02/18 09:11 Dose: 25 mg Montelukast Sodium (Singulair) 10 mg PO DAILY [facility] [place] Last Admin: 07/02/18 09:16 Dose: 10 mg Ranolazine (Ranexa) 500 mg PO BID [facility] [place] Last Admin: 07/02/18 09:16 Dose: 500 mg Repaglinide (Prandin) 2 mg PO DAILY [facility] [place] Last Admin: 07/02/18 09:16 Dose: 2 mg Roflumilast (Daliresp) 500 mcg PO DAILY [facility] [place] Last Admin: 07/01/18 10:27 Dose: 500 mcg Rosuvastatin Calcium (Crestor) 20 mg PO HS [facility] [place] Last Admin: 07/01/18 21:49 Dose: Not Given Sacubitril/Valsartan (Entresto 49 Mg-51 Mg) 1 tab PO BID [facility] Last Admin: 07/02/18 12:32 Dose: 1 tab - Labs Labs: 07/02/18 06:28 07/02/18 06:28 PT 12.8 SECONDS (9.7-12.2) H 06/23/18 20:31 INR 1.2 06/23/18 20:31 APTT 33 SECONDS (21-34) 06/23/18 20:31
[2018-07-02] MEDS ORDERED: Albumin Human 5% (12.5 gm/250 ml) IV ONE (15:57)
[2018-07-02 16:03] LABS: ABG ALLEN TEST NEG; ARTERIAL BLOOD GAS HCO3 22.4 mmol/L (21-28); ARTERIAL BLOOD GAS O2 SAT 96.7 % (95-98); ARTERIAL BLOOD GAS PCO2 34 mm/Hg (35-45); ARTERIAL BLOOD GAS PO2 69 mm/Hg (80-100); ARTERIAL BLOOD GAS TCO2 22.1 mmol/L (22-28)
--- NOTE | 2018-07-02 16:39 | CP.PCM.CON ---
History of Present Illness - History of Present Illness History of Present Illness: 87-year-old female with multiple medical problems including ischemic cardiomyopathy, CAD with 2 stents, ejection fraction 30%, type 2 diabetes mellitus, COPD, an AICD who is admitted by the emergency room complaining off shortness of breath. Consulted for worsening SOB, acute respiratory failure secondary to worsening chronic congestive heart failure. Review of Systems - Review of Systems All systems: reviewed and no additional remarkable complaints except - Respiratory Respiratory: Dyspnea Past Patient History - Infectious Disease Hx of Infectious Diseases: None - Tetanus Immunizations Tetanus Immunization: Unknown - Past Medical History & Family History Past Medical History?: Yes - Past Social History Smoking Status: Never Smoked - CARDIAC Hx Cardiac Disorders: Yes (CAD) Hx Hypercholesterolemia: Yes - PULMONARY Hx Chronic Obstructive Pulmonary Disease (COPD): Yes - NEUROLOGICAL Hx Transient Ischemic Attacks (TIA): Yes - HEENT Hx HEENT Problems: No - RENAL Hx Chronic Kidney Disease: No - ENDOCRINE/METABOLIC Hx Diabetes Mellitus Type 2: Yes - HEMATOLOGICAL/ONCOLOGICAL Hx Anemia: Yes - INTEGUMENTARY Hx Dermatological Problems: No - MUSCULOSKELETAL/RHEUMATOLOGICAL Hx Arthritis: Yes Hx Falls: No - GASTROINTESTINAL Hx Gastrointestinal Disorders: No - GENITOURINARY/GYNECOLOGICAL Hx Genitourinary Disorders: No - PSYCHIATRIC Hx Anxiety: Yes Hx Substance Use: No - SURGICAL HISTORY Hx Appendectomy: Yes Hx Coronary Stent: Yes - ANESTHESIA Hx Anesthesia: Yes Hx Anesthesia Reactions: No Hx Malignant Hyperthermia: No Meds Allergies/Adverse Reactions: Allergies Allergy/AdvReac Type Severity Reaction Status Date / Time clopidogrel Allergy Mild SWELLING Verified 12/22/17 13:34 - Medications Medications: Current Medications Albuterol Sulfate (Albuterol 0.042% Inhal Bell (1.25mg/3ml) Ud) 1.25 mg INH RQ2 PRN PRN Reason: Wheezing Albuterol/Ipratropium (Duoneb 3 Mg/0.5 Mg (3 Ml) Ud) 3 ml INH RQ6 [facility] Last Admin: 07/02/18 13:54 Dose: 3 ml Aspirin (Ecotrin) 325 mg PO DAILY [facility] Last Admin: 07/02/18 09:16 Dose: 325 mg Ergocalciferol (Drisdol 50,000 Intl Units Cap) 1 cap PO QWK [facility] Last Admin: 06/30/18 09:38 Dose: 1 cap Furosemide (Lasix) 20 mg IVP DAILY [facility] Last Admin: 07/02/18 09:09 Dose: 20 mg Furosemide (Lasix) 60 mg IVP Q12 [facility] Heparin Sodium (Porcine) (Heparin) 5,000 units SC Q8 [facility] Last Admin: 07/02/18 14:20 Dose: 5,000 units Cefepime HCl 0.5 gm/ Dextrose 50 mls @ 100 mls/hr IVPB Q24H [facility]; Protocol Last Admin: 07/02/18 09:35 Dose: 100 mls/hr Amino Acids (Clinimix 4.25/5 % "E" (1000 Ml)) 1,000 mls @ 50 mls/hr IV .Q20H [facility] Stop: 07/02/18 18:00 Last Admin: 07/02/18 14:04 Dose: 50 mls/hr Multivitamins/Vitamin C 10 ml/Chromium/Copper/Manganese/Zinc 1 ml/ Amino Acids 1,011 mls @ 50 mls/hr IV .[id number] [facility] Stop: 07/03/18 14:00 Amino Acids (Clinimix 4.25/5 % "E" (1000 Ml)) 1,000 mls @ 50 mls/hr IV .Q20H [facility] Stop: 07/03/18 18:00 Albumin Human (Albumin Human 5% (12.5 Gm/250 Ml)) 250 mls @ 25 mls/hr IV ONCE ONE Stop: 07/03/18 02:59 Insulin Human Regular (Novolin R) 0 unit SC ACHS [facility]; Protocol Last Admin: 07/02/18 12:31 Dose: 4 units Metoprolol Tartrate (Lopressor) 25 mg PO BID [facility] Last Admin: 07/02/18 09:11 Dose: 25 mg Montelukast Sodium (Singulair) 10 mg PO DAILY [facility] Last Admin: 07/02/18 09:16 Dose: 10 mg Morphine Sulfate (Morphine) 2 mg IVP Q4 PRN PRN Reason: Anxiety Last Admin: 07/02/18 16:16 Dose: 2 mg Ranolazine (Ranexa) 500 mg PO BID [facility] Last Admin: 07/02/18 09:16 Dose: 500 mg Repaglinide (Prandin) 2 mg PO DAILY [facility] Last Admin: 07/02/18 09:16 Dose: 2 mg Roflumilast (Daliresp) 500 mcg PO DAILY [facility] Last Admin: 07/01/18 10:27 Dose: 500 mcg Rosuvastatin Calcium (Crestor) 20 mg PO HS [facility] Last Admin: 07/01/18 21:49 Dose: Not Given Sacubitril/Valsartan (Entresto 49 Mg-51 Mg) 1 tab PO BID [facility] Last Admin: 07/02/18 12:32 Dose: 1 tab Physical Exam - Constitutional Appears: In Acute Distress - Head Exam Head Exam: ATRAUMATIC, NORMAL INSPECTION, NORMOCEPHALIC - Eye Exam Eye Exam: EOMI, Normal appearance, PERRL Pupil Exam: NORMAL ACCOMODATION, PERRL - ENT Exam ENT Exam: Mucous Membranes Moist, Normal Exam - Neck Exam Neck exam: Positive for: Normal Inspection - Respiratory Exam Respiratory Exam: Decreased Breath Sounds, Rales - Cardiovascular Exam Cardiovascular Exam: Tachycardia - GI/Abdominal Exam GI & Abdominal Exam: Normal Bowel Sounds, Soft. absent: Tenderness - Extremities Exam Extremities exam: Positive for: pedal edema - Neurological Exam Neurological exam: Alert - Psychiatric Exam Psychiatric exam: Agitated Results - Vital Signs Recent Vital Signs: Last Vital Signs Temp 97.5 F L 07/02/18 09:01 Pulse 7 L 07/02/18 16:22 Resp 18 07/02/18 09:01 BP 148/79 07/02/18 09:11 Pulse Ox 96 07/02/18 09:01 - Labs Result Diagrams: 07/02/18 06:28 07/02/18 06:28 Labs: Laboratory Results - last 24 hr 07/01/18 07/01/18 07/02/18 16:22 21:09 06:28 WBC 10.6 RBC 3.03 L Hgb 8.6 L Hct 26.5 L MCV 87.6 D MCH 28.3 MCHC 32.3 L RDW 17.7 H Plt Count 113 L MPV 10.0 Neut % (Auto) 86.9 H Lymph % (Auto) 2.4 L [place] % (Auto) 9.5 Eos % (Auto) 0.8 Baso % (Auto) 0.4 Neut # (Auto) 9.2 H Lymph # (Auto) 0.3 L [place] # (Auto) 1.0 H Eos # (Auto) 0.1 Baso # (Auto) 0.0 Neutrophils % (Manual) 88 H Lymphocytes % (Manual) 2 L Monocytes % (Manual) 9 Eosinophils % (Manual) 1 Toxic Granulation Present Platelet Estimate Slightly decreased L Large Platelets Present Polychromasia Slight Hypochromasia (manual) Slight Anisocytosis (manual) Slight Puncture Site pCO2 pO2 HCO3 ABG pH ABG Total CO2 ABG O2 Saturation ABG Base Excess ABG Hemoglobin ABG Carboxyhemoglobin POC ABG HHb (Measured) ABG Methemoglobin [place] Test A-a O2 Difference Respiratory Index Hgb O2 Saturation Vent Mode FiO2 Inspiratory BiPAP Expiratory BiPAP Sodium Potassium Chloride Carbon Dioxide Anion Gap BUN Creatinine Est GFR ( Amer) Est GFR (Non-Af Amer) POC Glucose (mg/dL) 114 H 171 H Random Glucose Calcium Total Bilirubin AST ALT Alkaline Phosphatase Total Protein Albumin Globulin Albumin/Globulin Ratio 07/02/18 07/02/18 07/02/18 06:28 06:55 08:28 WBC RBC Hgb Hct MCV MCH MCHC RDW Plt Count MPV Neut % (Auto) Lymph % (Auto) [place] % (Auto) Eos % (Auto) Baso % (Auto) Neut # (Auto) Lymph # (Auto) [place] # (Auto) Eos # (Auto) Baso # (Auto) Neutrophils % (Manual) Lymphocytes % (Manual) Monocytes % (Manual) Eosinophils % (Manual) Toxic Granulation Platelet Estimate Large Platelets Polychromasia Hypochromasia (manual) Anisocytosis (manual) Puncture Site pCO2 pO2 HCO3 ABG pH ABG Total CO2 ABG O2 Saturation ABG Base Excess ABG Hemoglobin ABG Carboxyhemoglobin POC ABG HHb (Measured) ABG Methemoglobin [place] Test A-a O2 Difference Respiratory Index Hgb O2 Saturation Vent Mode FiO2 Inspiratory BiPAP Expiratory BiPAP Sodium 134 Potassium 5.2 Chloride 102 Carbon Dioxide 22 Anion Gap 15 BUN 64 H Creatinine 2.3 H Est GFR ( Amer) 24 Est GFR (Non-Af Amer) 20 POC Glucose (mg/dL) 261 H 278 H Random Glucose 256 H Calcium 9.2 Total Bilirubin 0.7 AST 47 H D ALT 27 Alkaline Phosphatase 137 H D Total Protein 5.6 L Albumin 2.9 L Globulin 2.7 Albumin/Globulin Ratio 1.1 07/02/18 07/02/18 11:51 15:55 WBC RBC Hgb Hct MCV MCH MCHC RDW Plt Count MPV Neut % (Auto) Lymph % (Auto) [place] % (Auto) Eos % (Auto) Baso % (Auto) Neut # (Auto) Lymph # (Auto) [place] # (Auto) Eos # (Auto) Baso # (Auto) Neutrophils % (Manual) Lymphocytes % (Manual) Monocytes % (Manual) Eosinophils % (Manual) Toxic Granulation Platelet Estimate Large Platelets Polychromasia Hypochromasia (manual) Anisocytosis (manual) Puncture Site Rbrachial pCO2 34 L pO2 69 L HCO3 22.4 ABG pH 7.40 ABG Total CO2 22.1 ABG O2 Saturation 96.7 ABG Base Excess -3.1 L ABG Hemoglobin 11.0 L ABG Carboxyhemoglobin 2.4 H POC ABG HHb (Measured) 3.1 ABG Methemoglobin 2.3 [place] Test Neg A-a O2 Difference 281.0 Respiratory Index 4.1 Hgb O2 Saturation 92.2 L Vent Mode Bipap FiO2 55.0 Inspiratory BiPAP 12 Expiratory BiPAP 6 Sodium Potassium Chloride Carbon Dioxide Anion Gap BUN Creatinine Est GFR ( Amer) Est GFR (Non-Af Amer) POC Glucose (mg/dL) 270 H Random Glucose Calcium Total Bilirubin AST ALT Alkaline Phosphatase Total Protein Albumin Globulin Albumin/Globulin Ratio Assessment & Plan (1) Acute respiratory failure with hypoxia Assessment and Plan: Neuro: alert and in distress. starting morphine prn to reduce anxiety and respiratory distress. Pulm: acute respiratory failure with hypoxia, barely tolerating BIPAP. Family does not want patient intubated. had long conversation with daughters and . They have agreed to making the patient DNR/DNI. CV: hemodynamically stable. Renal: Worsening ERLIN, secondary to diuresis and probable cardiorenal disease. Despite this will increase diuretic to 60mg IV q12h, and adding albumin drip. gerry for strict I/O's during acute illness Code status - DNR/DNI Explained to family, that these interventions may not work, but we will try anyway. If the patient does not improve family wants to make the patient comfort care and start a morphine drip. Status: Acute
--- NOTE | 2018-07-02 17:39 | RAD ---
Date of service: 07/01/2018 HISTORY: chf COMPARISON: Portable chest 06/28/2018. FINDINGS: LUNGS: Infiltrate at the right apex is increased in density and may be extending into the right inferior right lung zone with left retrocardiac patchy density not significantly changed. PLEURA: No significant pleural effusion identified, no pneumothorax apparent. CARDIOVASCULAR: No aortic atherosclerotic calcification present. AICD/pacemaker reiterated. Cardiac silhouette stable. No pulmonary vascular congestion. Large hiatal hernia reiterated. OSSEOUS STRUCTURES: No significant abnormalities. VISUALIZED UPPER ABDOMEN: Normal. OTHER FINDINGS: None. IMPRESSION: Interval worsening of right-sided infiltrate with stable retrocardiac patchy infiltrate. No pleural effusion bilaterally.
[2018-07-02] MEDS ORDERED: *** PPN # 3 IV SCH (18:00)
--- NOTE | 2018-07-02 20:29 | CP.PCM.PN ---
Subjective - Date & Time of Evaluation Date of Evaluation: 07/02/18 Time of Evaluation: 20:29 - Subjective Subjective: EVENTS NOTED, PATIENT ON BIPAP, BARELY AROUSABLE, HYPOTENSIVE ON DOBUTAMINE SEEN BY PULMONARY. EVALUATED BY ICU TEAM. PATIENT WITH HYPOXIC RESPIRATORY FAILURE/CHRONIC CHF/ISCHEMIC CARDIOMYOPATHY AND PNEUMONIA. CXR -WORSENING RIGHT SIDED INFILTRATE STABLE RETROCARDIAC PATCHY INFILTRATE (see full report ) lABS REVIEWED; WBC 10.6 cREATININE 2.3/bun 64 fAMILY AT BEDSIDE. PT NOW DNR/DNI PLAN CONTINUE IV ABX IV CEFEPIME. ADD IV ZYVOX 600 MG IV Q [id number] FOLY CATHETHER TO MONITOR RENAL FUNCTION, CONTINUE SUPPORTIVE CARE. Objective - Vital Signs/Intake and Output Vital Signs (last 24 hours): Temp Pulse Resp BP Pulse Ox 99.2 F 7 L 20 92/55 L 100 07/02/18 16:20 07/02/18 16:22 07/02/18 16:20 07/02/18 18:30 07/02/18 16:20 - Medications Medications: Current Medications Albuterol Sulfate (Albuterol 0.042% Inhal Bell (1.25mg/3ml) Ud) 1.25 mg INH RQ2 PRN PRN Reason: Wheezing Albuterol/Ipratropium (Duoneb 3 Mg/0.5 Mg (3 Ml) Ud) 3 ml INH RQ6 [facility] Last Admin: 07/02/18 13:54 Dose: 3 ml Aspirin (Ecotrin) 325 mg PO DAILY [facility] Last Admin: 07/02/18 09:16 Dose: 325 mg Ergocalciferol (Drisdol 50,000 Intl Units Cap) 1 cap PO QWK [facility] Last Admin: 06/30/18 09:38 Dose: 1 cap Furosemide (Lasix) 20 mg IVP DAILY [facility] Last Admin: 07/02/18 09:09 Dose: 20 mg Furosemide (Lasix) 60 mg IVP Q12 [facility] Last Admin: 07/02/18 18:30 Dose: 60 mg Heparin Sodium (Porcine) (Heparin) 5,000 units SC Q8 [facility] Last Admin: 07/02/18 14:20 Dose: 5,000 units Cefepime HCl 0.5 gm/ Dextrose 50 mls @ 100 mls/hr IVPB Q24H [facility]; Protocol Last Admin: 07/02/18 09:35 Dose: 100 mls/hr Multivitamins/Vitamin C 10 ml/Chromium/Copper/Manganese/Zinc 1 ml/ Amino Acids 1,011 mls @ 50 mls/hr IV .[id number] [facility] Stop: 07/03/18 14:00 Last Admin: 07/02/18 18:40 Dose: 50 mls/hr Amino Acids (Clinimix 4.25/5 % "E" (1000 Ml)) 1,000 mls @ 50 mls/hr IV .Q20H [facility] Stop: 07/03/18 18:00 Albumin Human (Albumin Human 5% (12.5 Gm/250 Ml)) 250 mls @ 25 mls/hr IV ONCE ONE Stop: 07/03/18 02:59 Last Admin: 07/02/18 17:17 Dose: 25 mls/hr Insulin Human Regular (Novolin R) 0 unit SC ACHS [facility]; Protocol Last Admin: 07/02/18 17:30 Dose: Not Given Metoprolol Tartrate (Lopressor) 25 mg PO BID [facility] Last Admin: 07/02/18 17:27 Dose: Not Given Montelukast Sodium (Singulair) 10 mg PO DAILY [facility] Last Admin: 07/02/18 09:16 Dose: 10 mg Morphine Sulfate (Morphine) 2 mg IVP Q4 PRN PRN Reason: Anxiety Last Admin: 07/02/18 16:16 Dose: 2 mg Ranolazine (Ranexa) 500 mg PO BID [facility] Last Admin: 07/02/18 17:28 Dose: Not Given Repaglinide (Prandin) 2 mg PO DAILY [facility] Last Admin: 07/02/18 09:16 Dose: 2 mg Roflumilast (Daliresp) 500 mcg PO DAILY [facility] Last Admin: 07/01/18 10:27 Dose: 500 mcg Rosuvastatin Calcium (Crestor) 20 mg PO HS [facility] Last Admin: 07/01/18 21:49 Dose: Not Given Sacubitril/Valsartan (Entresto 49 Mg-51 Mg) 1 tab PO BID [facility] Last Admin: 07/02/18 17:27 Dose: Not Given - Labs Labs: 07/02/18 06:28 07/02/18 06:28 PT 12.8 SECONDS (9.7-12.2) H 06/23/18 20:31 INR 1.2 06/23/18 20:31 APTT 33 SECONDS (21-34) 06/23/18 20:31 - Constitutional Appears: Cachectic, Chronically Ill - Head Exam Head Exam: NORMAL INSPECTION - Eye Exam Eye Exam: PERRL - ENT Exam ENT Exam: Normal Oropharynx - Neck Exam Neck Exam: Normal Inspection - Respiratory Exam Respiratory Exam: Prolonged Expiratory Phase, Rales, Rhonchi - Cardiovascular Exam Cardiovascular Exam: Tachycardia, REGULAR RHYTHM, +S1, +S2 - GI/Abdominal Exam GI & Abdominal Exam: Soft, Normal Bowel Sounds. absent: Organomegaly - Extremities Exam Extremities Exam: Normal Capillary Refill, Pedal Edema (1+). absent: Calf Tenderness - Neurological Exam Neurological Exam: Altered - Psychiatric Exam Psychiatric exam: Flat Affect - Skin Skin Exam: Dry Assessment and Plan (1) Acute respiratory failure with hypoxia Status: Acute (2) Chr obstructive pulmonary disease w/ acute lower respiratory infxn Status: Acute (3) CHF exacerbation Status: Acute (4) Cardiomyopathy Status: Acute (5) DM type 2 (diabetes mellitus, type 2) Status: Acute (6) CAD (coronary artery disease) Status: Acute (7) Anemia Status: Acute (8) Ischemic cardiomyopathy Status: Acute
[2018-07-02] MEDS ORDERED: DOBUTamine 500mg/250ml D5W 500 MG/250 ML BAG IV SCH (22:45)
[2018-07-03] MEDS: Linezolid 600 mg in D5W 300 ml 600 MG/300 ML BAG IVPB SCH ×2 (01:10→13:00)
[2018-07-03] MEDS: Albuterol-Ipratrop 3 mg / 0.5 (3 ml) UD INH SCH ×4 (01:25→19:27)
[2018-07-03] MEDS: (Novolin R) Insulin Human Regular 100 units/ml vial SC SCH ×4 (09:04→22:08)
[2018-07-03] MEDS: Ranolazine 500 mg Extended Release Tablets PO SCH ×2 (09:09→18:36)
[2018-07-03] MEDS: Aspirin 325 mg EC Tablets PO SCH (09:10)
[2018-07-03] MEDS: Sacubitril/Valsartan 49-51 Tab PO SCH ×2 (10:00→18:36)
[2018-07-03] MEDS ORDERED: PPN IV SCH ×2 (14:00→18:00)
--- NOTE | 2018-07-03 14:14 | CP.PCM.PN ---
Subjective - Date & Time of Evaluation Date of Evaluation: 07/03/18 Time of Evaluation: 14:08 - Subjective Subjective: Reason for consultation: Acute respiratory distress and pneumonia Pulmonary Follow up, Covering Dr Malik The patient was Seen/interviewed and examined by me at the bedside, Medical records reviewed and Management issues were discussed and formulated with the house staff. Events reviewed 87 Years old Male with PMHx diabetes, COPD, ischemic cardiomyopathy with low ejection fraction, coronary artery disease status post stent placement and AICD who was admitted with increasing shortness of breath and being treated for p neumonia/COPD exacerbation. Patient went in respiratory distress and was placed on BIPAP. Chest x-ray showed worsening pneumonia/infiltrate involving the whole right lung. Evaluated by ICU, started PRN morphine to reduce anxiety and respiratory distress. Patient comfortable, NAD Afebrile Saturation 98% on BIPAP Continue diuretics to optimize fluid status, IV Antibiotics as per ID, Singmicaela and Roflumilast (Daliresp). Objective - Vital Signs/Intake and Output Vital Signs (last 24 hours): Temp Pulse Resp BP Pulse Ox 97.8 F 79 18 94/43 L 98 07/03/18 09:06 07/03/18 13:53 07/03/18 09:06 07/03/18 09:06 07/03/18 09:06 Intake and Output: 07/03/18 07/03/18 06:59 18:59 Intake Total 1119 Output Total 600 Balance 519 - Medications Medications: Current Medications Albuterol Sulfate (Albuterol 0.042% Inhal Bell (1.25mg/3ml) Ud) 1.25 mg INH RQ2 PRN PRN Reason: Wheezing Albuterol/Ipratropium (Duoneb 3 Mg/0.5 Mg (3 Ml) Ud) 3 ml INH RQ6 [facility] Last Admin: 07/03/18 13:52 Dose: 3 ml Aspirin (Ecotrin) 325 mg PO DAILY [facility] Last Admin: 07/03/18 09:10 Dose: Not Given Ergocalciferol (Drisdol 50,000 Intl Units Cap) 1 cap PO QWK [facility] Last Admin: 06/30/18 09:38 Dose: 1 cap Furosemide (Lasix) 20 mg IVP DAILY [facility] Last Admin: 07/03/18 09:10 Dose: Not Given Furosemide (Lasix) 60 mg IVP Q12 [facility] Last Admin: 07/03/18 10:00 Dose: Not Given Heparin Sodium (Porcine) (Heparin) 5,000 units SC Q8 [facility] Last Admin: 07/03/18 13:19 Dose: 5,000 units Cefepime HCl 0.5 gm/ Dextrose 50 mls @ 100 mls/hr IVPB Q24H [facility]; Protocol Last Admin: 07/03/18 10:30 Dose: 100 mls/hr Amino Acids (Clinimix 4.25/5 % "E" (1000 Ml)) 1,000 mls @ 50 mls/hr IV .Q20H [facility] Stop: 07/03/18 18:00 Last Admin: 07/03/18 13:35 Dose: 50 mls/hr Dobutamine HCl/Dextrose (Dobutamine/Dextrose 5% 500mg/250ml) 500 mg in 250 mls @ 3.538 mls/hr IV .Q24H [facility]; Protocol Last Admin: 07/02/18 23:06 Dose: 2.5 mcg/kg/min, 3.538 mls/hr Linezolid (Zyvox 600mg/300ml D5w) 600 mg in 300 mls @ 200 mls/hr IVPB Q12H [facility]; Protocol Last Admin: 07/03/18 13:00 Dose: 200 mls/hr Chromium/Copper/Manganese/Zinc 1 ml/ Multivitamins/Vitamin C 10 ml/ Parenteral Electrolytes 20 ml/ Amino Acids 1,031 mls @ 50 mls/hr IV .[id number] [facility] Stop: 07/04/18 14:00 Parenteral Electrolytes 20 ml/ (Amino Acids) 1,020 mls @ 50 mls/hr IV .[id number] [facility] Stop: 07/04/18 18:00 Insulin Human Regular (Novolin R) 0 unit SC ACHS [facility]; Protocol Last Admin: 07/03/18 13:12 Dose: 4 units Metoprolol Tartrate (Lopressor) 25 mg PO BID [facility] Last Admin: 07/03/18 09:10 Dose: Not Given Montelukast Sodium (Singulair) 10 mg PO DAILY [facility] Last Admin: 07/03/18 10:00 Dose: Not Given Morphine Sulfate (Morphine) 2 mg IVP Q4 PRN PRN Reason: Anxiety Last Admin: 07/02/18 16:16 Dose: 2 mg Ranolazine (Ranexa) 500 mg PO BID [facility] Last Admin: 07/03/18 09:09 Dose: Not Given Repaglinide (Prandin) 2 mg PO DAILY [facility] Last Admin: 07/03/18 10:00 Dose: Not Given Roflumilast (Daliresp) 500 mcg PO DAILY [facility] Last Admin: 07/01/18 10:27 Dose: 500 mcg Rosuvastatin Calcium (Crestor) 20 mg PO HS [facility] Last Admin: 07/02/18 22:12 Dose: Not Given Sacubitril/Valsartan (Entresto 49 Mg-51 Mg) 1 tab PO BID [facility] Last Admin: 07/03/18 10:00 Dose: Not Given - Labs Labs: 07/02/18 06:28 07/02/18 06:28 PT 12.8 SECONDS (9.7-12.2) H 06/23/18 20:31 INR 1.2 06/23/18 20:31 APTT 33 SECONDS (21-34) 06/23/18 20:31
--- NOTE | 2018-07-03 15:09 | CP.PCM.PN ---
Subjective - Date & Time of Evaluation Date of Evaluation: 07/03/18 Time of Evaluation: 15:08 - Subjective Subjective: Blood pressure remains low at 90s Patient has a urine output about 600 mL BUN/creatinine is stable Patient on Dobutrex bronchodilators IV antibiotics. Continue supportive therapy Objective - Vital Signs/Intake and Output Vital Signs (last 24 hours): Temp Pulse Resp BP Pulse Ox 97.8 F 79 18 94/43 L 98 07/03/18 09:06 07/03/18 13:53 07/03/18 09:06 07/03/18 09:06 07/03/18 09:06 Intake and Output: 07/03/18 07/03/18 11:59 23:59 Intake Total 719 Output Total 200 Balance 519 - Medications Medications: Current Medications Albuterol Sulfate (Albuterol 0.042% Inhal Bell (1.25mg/3ml) Ud) 1.25 mg INH RQ2 PRN PRN Reason: Wheezing Albuterol/Ipratropium (Duoneb 3 Mg/0.5 Mg (3 Ml) Ud) 3 ml INH RQ6 [facility] Last Admin: 07/03/18 13:52 Dose: 3 ml Aspirin (Ecotrin) 325 mg PO DAILY [facility] Last Admin: 07/03/18 09:10 Dose: Not Given Ergocalciferol (Drisdol 50,000 Intl Units Cap) 1 cap PO QWK [facility] Last Admin: 06/30/18 09:38 Dose: 1 cap Furosemide (Lasix) 20 mg IVP DAILY [facility] Last Admin: 07/03/18 09:10 Dose: Not Given Furosemide (Lasix) 60 mg IVP Q12 [facility] Last Admin: 07/03/18 10:00 Dose: Not Given Heparin Sodium (Porcine) (Heparin) 5,000 units SC Q8 [facility] Last Admin: 07/03/18 13:19 Dose: 5,000 units Cefepime HCl 0.5 gm/ Dextrose 50 mls @ 100 mls/hr IVPB Q24H [facility]; Protocol Last Admin: 07/03/18 10:30 Dose: 100 mls/hr Amino Acids (Clinimix 4.25/5 % "E" (1000 Ml)) 1,000 mls @ 50 mls/hr IV .Q20H [facility] Stop: 07/03/18 18:00 Last Admin: 07/03/18 13:35 Dose: 50 mls/hr Dobutamine HCl/Dextrose (Dobutamine/Dextrose 5% 500mg/250ml) 500 mg in 250 mls @ 3.538 mls/hr IV .Q24H [facility]; Protocol Last Admin: 07/02/18 23:06 Dose: 2.5 mcg/kg/min, 3.538 mls/hr Linezolid (Zyvox 600mg/300ml D5w) 600 mg in 300 mls @ 200 mls/hr IVPB Q12H [facility]; Protocol Last Admin: 07/03/18 13:00 Dose: 200 mls/hr Chromium/Copper/Manganese/Zinc 1 ml/ Multivitamins/Vitamin C 10 ml/ Parenteral Electrolytes 20 ml/ Amino Acids 1,031 mls @ 50 mls/hr IV .[id number] [facility] Stop: 07/04/18 14:00 Parenteral Electrolytes 20 ml/ (Amino Acids) 1,020 mls @ 50 mls/hr IV .[id number] [facility] Stop: 07/04/18 18:00 Insulin Human Regular (Novolin R) 0 unit SC [facility]; Protocol Last Admin: 07/03/18 13:12 Dose: 4 units Metoprolol Tartrate (Lopressor) 25 mg PO BID [facility] Last Admin: 07/03/18 09:10 Dose: Not Given Montelukast Sodium (Singulair) 10 mg PO DAILY [facility] Last Admin: 07/03/18 10:00 Dose: Not Given Morphine Sulfate (Morphine) 2 mg IVP Q4 PRN PRN Reason: Anxiety Last Admin: 07/02/18 16:16 Dose: 2 mg Ranolazine (Ranexa) 500 mg PO BID [facility] Last Admin: 07/03/18 09:09 Dose: Not Given Repaglinide (Prandin) 2 mg PO DAILY [facility] Last Admin: 07/03/18 10:00 Dose: Not Given Roflumilast (Daliresp) 500 mcg PO DAILY [facility] Last Admin: 07/01/18 10:27 Dose: 500 mcg Rosuvastatin Calcium (Crestor) 20 mg PO HS [facility] Last Admin: 07/02/18 22:12 Dose: Not Given Sacubitril/Valsartan (Entresto 49 Mg-51 Mg) 1 tab PO BID [facility] Last Admin: 07/03/18 10:00 Dose: Not Given - Labs Labs: 07/02/18 06:28 07/02/18 06:28 PT 12.8 SECONDS (9.7-12.2) H 06/23/18 20:31 INR 1.2 06/23/18 20:31 APTT 33 SECONDS (21-34) 06/23/18 20:31
[2018-07-03] MEDS: DOBUTamine 500mg/250ml D5W 500 MG/250 ML BAG IV SCH (16:15)
--- NOTE | 2018-07-03 19:33 | CP.PCM.PN ---
Subjective - Date & Time of Evaluation Date of Evaluation: 07/03/18 Time of Evaluation: 19:33 - Subjective Subjective: AFEBRILE, ON BIPAP NO ACUTE DISTRESS, O2 SAT 98%. OUTPUT BETTER ON DOBUTAMINE. ON IV CEFIPIME IV ZYVOX LABS ; REVIEWED. Objective - Vital Signs/Intake and Output Vital Signs (last 24 hours): Temp Pulse Resp BP Pulse Ox 97.8 F 90 22 92/52 L 94 L 07/03/18 09:06 07/03/18 19:31 07/03/18 16:15 07/03/18 16:15 07/03/18 16:15 Intake and Output: 07/03/18 07/04/18 18:59 06:59 Intake Total 400 Output Total 425 Balance -25 - Medications Medications: Current Medications Albuterol Sulfate (Albuterol 0.042% Inhal Bell (1.25mg/3ml) Ud) 1.25 mg INH RQ2 PRN PRN Reason: Wheezing Albuterol/Ipratropium (Duoneb 3 Mg/0.5 Mg (3 Ml) Ud) 3 ml INH RQ6 [facility] Last Admin: 07/03/18 19:27 Dose: 3 ml Aspirin (Ecotrin) 325 mg PO DAILY [facility] Last Admin: 07/03/18 09:10 Dose: Not Given Ergocalciferol (Drisdol 50,000 Intl Units Cap) 1 cap PO QWK [facility] Last Admin: 06/30/18 09:38 Dose: 1 cap Furosemide (Lasix) 20 mg IVP DAILY [facility] Last Admin: 07/03/18 09:10 Dose: Not Given Furosemide (Lasix) 60 mg IVP Q12 [facility] Last Admin: 07/03/18 10:00 Dose: Not Given Heparin Sodium (Porcine) (Heparin) 5,000 units SC Q8 [facility] Last Admin: 07/03/18 13:19 Dose: 5,000 units Cefepime HCl 0.5 gm/ Dextrose 50 mls @ 100 mls/hr IVPB Q24H [facility]; Protocol Last Admin: 07/03/18 10:30 Dose: 100 mls/hr Linezolid (Zyvox 600mg/300ml D5w) 600 mg in 300 mls @ 200 mls/hr IVPB Q12H [facility]; Protocol Last Admin: 07/03/18 13:00 Dose: 200 mls/hr Chromium/Copper/Manganese/Zinc 1 ml/ Multivitamins/Vitamin C 10 ml/ Parenteral Electrolytes 20 ml/ Amino Acids 1,031 mls @ 50 mls/hr IV .[id number] [facility] Stop: 07/04/18 14:00 Last Admin: 07/03/18 18:39 Dose: 50 mls/hr Parenteral Electrolytes 20 ml/ (Amino Acids) 1,020 mls @ 50 mls/hr IV .[id number] [facility] Stop: 07/04/18 18:00 Dobutamine HCl/Dextrose (Dobutamine/Dextrose 5% 500mg/250ml) 500 mg in 250 mls @ 7.076 mls/hr IV .Q24H [facility]; Protocol Last Admin: 07/03/18 16:15 Dose: 7.076 mls/hr Insulin Human Regular (Novolin R) 0 unit SC ACHS [facility]; Protocol Last Admin: 07/03/18 18:39 Dose: 4 units Metoprolol Tartrate (Lopressor) 25 mg PO BID [facility] Last Admin: 07/03/18 18:35 Dose: Not Given Montelukast Sodium (Singulair) 10 mg PO DAILY [facility] Last Admin: 07/03/18 10:00 Dose: Not Given Morphine Sulfate (Morphine) 2 mg IVP Q4 PRN PRN Reason: Anxiety Last Admin: 07/02/18 16:16 Dose: 2 mg Ranolazine (Ranexa) 500 mg PO BID [facility] Last Admin: 07/03/18 18:36 Dose: Not Given Repaglinide (Prandin) 2 mg PO DAILY [facility] Last Admin: 07/03/18 10:00 Dose: Not Given Roflumilast (Daliresp) 500 mcg PO DAILY [facility] Last Admin: 07/01/18 10:27 Dose: 500 mcg Rosuvastatin Calcium (Crestor) 20 mg PO HS [facility] Last Admin: 07/02/18 22:12 Dose: Not Given Sacubitril/Valsartan (Entresto 49 Mg-51 Mg) 1 tab PO BID [facility] Last Admin: 07/03/18 18:36 Dose: Not Given - Labs Labs: 07/02/18 06:28 07/02/18 06:28 PT 12.8 SECONDS (9.7-12.2) H 12/06/18 20:31 INR 1.2 06/23/18 20:31 APTT 33 SECONDS (21-34) 06/23/18 20:31 - Constitutional Appears: No Acute Distress, Cachectic, Chronically Ill - Head Exam Head Exam: NORMAL INSPECTION - Eye Exam Eye Exam: EOMI - ENT Exam ENT Exam: Mucous Membranes Dry - Neck Exam Neck Exam: Normal Inspection - Respiratory Exam Respiratory Exam: Prolonged Expiratory Phase, Rales, Rhonchi - Cardiovascular Exam Cardiovascular Exam: Tachycardia, +S1, +S2 - GI/Abdominal Exam GI & Abdominal Exam: Soft, Normal Bowel Sounds - Extremities Exam Extremities Exam: Normal Capillary Refill. absent: Calf Tenderness, Pedal Edema - Neurological Exam Neurological Exam: Awake (arousable), CN II-XII Intact - Psychiatric Exam Psychiatric exam: Flat Affect - Skin Skin Exam: Normal Color, Warm Assessment and Plan (1) Acute respiratory failure with hypoxia Status: Acute (2) Chr obstructive pulmonary disease w/ acute lower respiratory infxn Status: Acute (3) CHF exacerbation Status: Acute (4) Cardiomyopathy Status: Acute (5) DM type 2 (diabetes mellitus, type 2) Status: Acute (6) CAD (coronary artery disease) Status: Acute (7) Anemia Status: Acute (8) Ischemic cardiomyopathy Status: Acute - Assessment and Plan (Free Text) Plan: PLAN CONTINUE IV ABX IV CEFEPIME. CONTINUE IV V ZYVOX 600 MG IV Q [id number] OUTPUT IMPROVING. CONTINUE SUPPORTIVE CARE. PER PULMONARY. PT DNR/DNI.
[2018-07-04] MEDS: Albuterol-Ipratrop 3 mg / 0.5 (3 ml) UD INH SCH ×4 (02:54→20:27)
[2018-07-04] MEDS: (Novolin R) Insulin Human Regular 100 units/ml vial SC SCH ×4 (08:24→22:20)
[2018-07-04] MEDS: Aspirin 325 mg EC Tablets PO SCH (09:47)
[2018-07-04] MEDS: Sacubitril/Valsartan 49-51 Tab PO SCH ×2 (09:48→18:05)
[2018-07-04] MEDS: Ranolazine 500 mg Extended Release Tablets PO SCH ×2 (09:50→18:06)
--- NOTE | 2018-07-04 11:17 | VASCLAB ---
Date of service: 07/01/2018 PROCEDURE: Right Upper Extremity Venous Duplex Exam HISTORY: Arm swelling, r/O thrombus PRIORS: None. TECHNIQUE: Right upper extremity, internal jugular, subclavian, axillary, brachial, ulnar, radial, basilic and upper cephalic veins were evaluated. Flow was assessed with color Doppler, compressibility, assessment of phasic flow and augmentation response. Report prepared by Derek Hobson, LEXIS, RVT FINDINGS: RIGHT: 1. Internal Jugular: 1.1. Compressibility - Fully compressible: Thrombus - None : Flow - Phasic: Augmentation -Normal: Reflux - None. 2. Subclavian: 2.1. Compressibility - Fully compressible: Thrombus - None : Flow - Phasic: Augmentation -Normal: Reflux - None. 3. Axillary: 3.1. Compressibility - Fully compressible: Thrombus - None : Flow - Phasic: Augmentation -Normal: Reflux - None. 4. Brachial: 4.1. Compressibility - Fully compressible: Thrombus - None: Flow - Phasic: Augmentation -Normal: Reflux - None. 5. Ulnar: 5.1. Compressibility - Fully compressible: Thrombus - None: Flow - Phasic: Augmentation -Normal: Reflux - None. 6. Radial: 6.1. Compressibility - Fully compressible: Thrombus - None: Flow - Phasic: Augmentation - Normal: Reflux - None. 7. Cephalic: 7.1. Compressibility - Fully compressible: Thrombus - None: Flow - Phasic: Augmentation -Normal: Reflux - None. 8. Basilic: 8.1. Compressibility - Partial: Thrombus - Acute: Flow - Absent : Augmentation - None: Reflux - None. OTHER FINDINGS: ALEJANDRO Jones notified about the findings. IMPRESSION: Right: Acute thrombosis of the right basilic vein with severe reduction of the venous return. Normal venous flow noted in the left internal jugular and left subclavian veins.
[2018-07-04] MEDS: Linezolid 600 mg in D5W 300 ml 600 MG/300 ML BAG IVPB SCH (12:13)
--- NOTE | 2018-07-04 13:45 | CP.PCM.PN ---
Subjective - Date & Time of Evaluation Date of Evaluation: 07/04/18 Time of Evaluation: 09:30 - Subjective Subjective: Patient seen and examined at bedside. Afebrile. +SOB remains on BiPAP No response to vocal command Patient is DNR/DNI Objective - Vital Signs/Intake and Output Vital Signs (last 24 hours): Temp Pulse Resp BP Pulse Ox 98.0 F 99 H 18 95/49 L 96 07/04/18 07:40 07/04/18 13:38 07/04/18 07:40 07/04/18 09:49 07/04/18 07:40 Intake and Output: 07/04/18 07/04/18 06:59 18:59 Intake Total 880 Output Total 700 Balance 180 - Medications Medications: Current Medications Albuterol Sulfate (Albuterol 0.042% Inhal Bell (1.25mg/3ml) Ud) 1.25 mg INH RQ2 PRN PRN Reason: Wheezing Albuterol/Ipratropium (Duoneb 3 Mg/0.5 Mg (3 Ml) Ud) 3 ml INH RQ6 [facility] Last Admin: 07/04/18 13:37 Dose: 3 ml Aspirin (Ecotrin) 325 mg PO DAILY [facility] Last Admin: 07/04/18 09:47 Dose: Not Given Ergocalciferol (Drisdol 50,000 Intl Units Cap) 1 cap PO QWK [facility] Last Admin: 06/30/18 09:38 Dose: 1 cap Furosemide (Lasix) 20 mg IVP DAILY [facility] Last Admin: 07/04/18 09:48 Dose: Not Given Furosemide (Lasix) 60 mg IVP Q12 [facility] Last Admin: 07/04/18 09:49 Dose: Not Given Heparin Sodium (Porcine) (Heparin) 5,000 units SC Q8 [facility] Last Admin: 07/04/18 05:50 Dose: 5,000 units Cefepime HCl 0.5 gm/ Dextrose 50 mls @ 100 mls/hr IVPB Q24H [facility]; Protocol Last Admin: 07/04/18 09:51 Dose: 100 mls/hr Linezolid (Zyvox 600mg/300ml D5w) 600 mg in 300 mls @ 200 mls/hr IVPB Q12H [facility]; Protocol Last Admin: 07/04/18 12:13 Dose: 200 mls/hr Chromium/Copper/Manganese/Zinc 1 ml/ Multivitamins/Vitamin C 10 ml/ Parenteral Electrolytes 20 ml/ Amino Acids 1,031 mls @ 50 mls/hr IV .[id number] [facility] Stop: 07/04/18 14:00 Last Admin: 07/03/18 18:39 Dose: 50 mls/hr Parenteral Electrolytes 20 ml/ (Amino Acids) 1,020 mls @ 50 mls/hr IV .[id number] [facility] Stop: 07/04/18 18:00 Dobutamine HCl/Dextrose (Dobutamine/Dextrose 5% 500mg/250ml) 500 mg in 250 mls @ 7.076 mls/hr IV .Q24H [facility]; Protocol Last Admin: 07/03/18 16:15 Dose: 7.076 mls/hr Multivitamins/Vitamin C 10 ml/Chromium/Copper/Manganese/Zinc 1 ml/ Amino Acids 1,011 mls @ 50 mls/hr IV .[id number] [facility] Stop: 07/05/18 14:13 Amino Acids (Clinimix 4.25/5 % "E" (1000 Ml)) 1,000 mls @ 50 mls/hr IV .Q20H [facility] Stop: 07/05/18 17:59 Fat Emulsion Intravenous (Intralipid 20%) 500 mls @ 40 mls/hr IV ONCE ONE Stop: 07/05/18 06:29 Insulin Human Regular (Novolin R) 0 unit SC [facility]; Protocol Last Admin: 07/04/18 12:12 Dose: 4 units Metoprolol Tartrate (Lopressor) 25 mg PO BID [facility] Last Admin: 07/04/18 09:49 Dose: Not Given Montelukast Sodium (Singulair) 10 mg PO DAILY [facility] Last Admin: 07/04/18 09:50 Dose: Not Given Morphine Sulfate (Morphine) 2 mg IVP Q4 PRN PRN Reason: Anxiety Last Admin: 07/04/18 12:36 Dose: 2 mg Ranolazine (Ranexa) 500 mg PO BID [facility] Last Admin: 07/04/18 09:50 Dose: Not Given Repaglinide (Prandin) 2 mg PO DAILY [facility] Last Admin: 07/04/18 09:49 Dose: Not Given Roflumilast (Daliresp) 500 mcg PO DAILY [facility] Last Admin: 07/01/18 10:27 Dose: 500 mcg Rosuvastatin Calcium (Crestor) 20 mg PO HS [facility] Last Admin: 07/03/18 22:07 Dose: Not Given Sacubitril/Valsartan (Entresto 49 Mg-51 Mg) 1 tab PO BID [facility] Last Admin: 07/04/18 09:48 Dose: Not Given - Labs Labs: 07/02/18 06:28 07/02/18 06:28 PT 12.8 SECONDS (9.7-12.2) H 06/23/18 20:31 INR 1.2 06/23/18 20:31 APTT 33 SECONDS (21-34) 06/23/18 20:31 - Head Exam Head Exam: ATRAUMATIC, NORMOCEPHALIC - ENT Exam ENT Exam: Mucous Membranes Moist - Neck Exam Neck Exam: Normal Inspection - Respiratory Exam Respiratory Exam: Decreased Breath Sounds - Cardiovascular Exam Cardiovascular Exam: Irregular Rhythm - GI/Abdominal Exam GI & Abdominal Exam: Soft, Normal Bowel Sounds Assessment and Plan (1) Acute respiratory failure with hypoxia Assessment & Plan: On BiPAP and Dobutrex bronchodilators IV ABX. Continue supportive therapy. Status: Acute (2) CHF exacerbation Status: Acute (3) COPD exacerbation Status: Acute (4) Cardiomyopathy Status: Acute (5) Pneumonia Status: Acute
[2018-07-04] MEDS ORDERED: PPN IV SCH (14:00)
--- NOTE | 2018-07-04 14:21 | CP.PCM.PN ---
Subjective - Date & Time of Evaluation Date of Evaluation: 07/04/18 Time of Evaluation: 14:19 - Subjective Subjective: Patient is waking up. Blood pressure still in the 90s systolic. Urine output is increased to 1200 cc after Dobutrex. BUN creatinine is still up. Repeat chest x-ray. Objective - Vital Signs/Intake and Output Vital Signs (last 24 hours): Temp Pulse Resp BP Pulse Ox 98.0 F 99 H 18 95/49 L 96 07/04/18 07:40 07/04/18 13:38 07/04/18 07:40 07/04/18 09:49 07/04/18 07:40 Intake and Output: 07/04/18 07/04/18 11:59 23:59 Intake Total 440 Output Total 450 Balance -10 - Medications Medications: Current Medications Albuterol Sulfate (Albuterol 0.042% Inhal Bell (1.25mg/3ml) Ud) 1.25 mg INH RQ2 PRN PRN Reason: Wheezing Albuterol/Ipratropium (Duoneb 3 Mg/0.5 Mg (3 Ml) Ud) 3 ml INH RQ6 [facility] Last Admin: 07/04/18 13:37 Dose: 3 ml Aspirin (Ecotrin) 325 mg PO DAILY [facility] Last Admin: 07/04/18 09:47 Dose: Not Given Ergocalciferol (Drisdol 50,000 Intl Units Cap) 1 cap PO QWK [facility] Last Admin: 06/30/18 09:38 Dose: 1 cap Furosemide (Lasix) 20 mg IVP DAILY [facility] Last Admin: 07/04/18 09:48 Dose: Not Given Furosemide (Lasix) 60 mg IVP Q12 [facility] Last Admin: 07/04/18 09:49 Dose: Not Given Heparin Sodium (Porcine) (Heparin) 5,000 units SC Q8 [facility] Last Admin: 07/04/18 14:06 Dose: 5,000 units Cefepime HCl 0.5 gm/ Dextrose 50 mls @ 100 mls/hr IVPB Q24H [facility]; Protocol Last Admin: 07/04/18 09:51 Dose: 100 mls/hr Linezolid (Zyvox 600mg/300ml D5w) 600 mg in 300 mls @ 200 mls/hr IVPB Q12H [facility]; Protocol Last Admin: 07/04/18 12:13 Dose: 200 mls/hr Parenteral Electrolytes 20 ml/ (Amino Acids) 1,020 mls @ 50 mls/hr IV .[id number] [facility] Stop: 07/04/18 18:00 Dobutamine HCl/Dextrose (Dobutamine/Dextrose 5% 500mg/250ml) 500 mg in 250 mls @ 7.076 mls/hr IV .Q24H [facility]; Protocol Last Admin: 07/03/18 16:15 Dose: 7.076 mls/hr Multivitamins/Vitamin C 10 ml/Chromium/Copper/Manganese/Zinc 1 ml/ Amino Acids 1,011 mls @ 50 mls/hr IV .[id number] [facility] Stop: 07/05/18 14:13 Amino Acids (Clinimix 4.25/5 % "E" (1000 Ml)) 1,000 mls @ 50 mls/hr IV .Q20H [facility] Stop: 07/05/18 17:59 Fat Emulsion Intravenous (Intralipid 20%) 500 mls @ 40 mls/hr IV ONCE ONE Stop: 07/05/18 06:29 Insulin Human Regular (Novolin R) 0 unit SC [facility]; Protocol Last Admin: 07/04/18 12:12 Dose: 4 units Metoprolol Tartrate (Lopressor) 25 mg PO BID [facility] Last Admin: 07/04/18 09:49 Dose: Not Given Montelukast Sodium (Singulair) 10 mg PO DAILY [facility] Last Admin: 07/04/18 09:50 Dose: Not Given Morphine Sulfate (Morphine) 2 mg IVP Q4 PRN PRN Reason: Anxiety Last Admin: 07/04/18 12:36 Dose: 2 mg Ranolazine (Ranexa) 500 mg PO BID [facility] Last Admin: 07/04/18 09:50 Dose: Not Given Repaglinide (Prandin) 2 mg PO DAILY [facility] Last Admin: 07/04/18 09:49 Dose: Not Given Roflumilast (Daliresp) 500 mcg PO DAILY [facility] Last Admin: 07/01/18 10:27 Dose: 500 mcg Rosuvastatin Calcium (Crestor) 20 mg PO HS [facility] Last Admin: 07/03/18 22:07 Dose: Not Given Sacubitril/Valsartan (Entresto 49 Mg-51 Mg) 1 tab PO BID [facility] Last Admin: 07/04/18 09:48 Dose: Not Given - Labs Labs: 07/02/18 06:28 07/02/18 06:28 PT 12.8 SECONDS (9.7-12.2) H 06/23/18 20:31 INR 1.2 06/23/18 20:31 APTT 33 SECONDS (21-34) 06/23/18 20:31
[2018-07-04] MEDS: DOBUTamine 500mg/250ml D5W 500 MG/250 ML BAG IV SCH ×2 (16:00→18:25)
[2018-07-04] MEDS ORDERED: PPN#7 IV ONE (18:00)
[2018-07-04] MEDS ORDERED: Fat Emulsion 20% IV 500 ML IV ONE (18:00)
--- NOTE | 2018-07-04 20:41 | RAD ---
Date of service: 07/04/2018 HISTORY: chf COMPARISON: 07/01/2018 FINDINGS: LUNGS: There is once again evidence of moderate opacification in the entire right lung, grossly unchanged. There is additionally persistent infiltrate and/or atelectasis in the left mid and lower lung field. Vasculature is once again congested with mild edema. Left pacemaker is unchanged. Heart is enlarged. PLEURA: No change. CARDIOVASCULAR: Mild atherosclerotic calcification of the aorta. Normal cardiac size. No pulmonary vascular congestion. OSSEOUS STRUCTURES: No significant abnormalities. VISUALIZED UPPER ABDOMEN: Normal. OTHER FINDINGS: None. IMPRESSION: Persistent bilateral right and left lower lung field infiltrates or edema.
--- NOTE | 2018-07-04 20:55 | CP.PCM.PN ---
Subjective - Date & Time of Evaluation Date of Evaluation: 07/04/18 Time of Evaluation: 20:55 - Subjective Subjective: AFEBRILE,BP LOW ON BIPAP +VE SOB OPENS EYES TO NAME NO ACUTE DISTRESS, O2 SAT 98%. OUTPUT BETTER ON DOBUTAMINE. ON IV CEFIPIME IV ZYVOX -MIDLINE LEAKING-D/C PERIPHERAL IV OBTAINED. LABS ; REVIEWED. Objective - Vital Signs/Intake and Output Vital Signs (last 24 hours): Temp Pulse Resp BP Pulse Ox 97.6 F 78 24 90/56 L 99 07/04/18 15:52 07/04/18 20:28 07/04/18 18:25 07/04/18 18:25 07/04/18 18:25 Intake and Output: 07/04/18 07/05/18 18:59 06:59 Intake Total 440 Output Total 20 Balance 420 - Medications Medications: Current Medications Albuterol Sulfate (Albuterol 0.042% Inhal Bell (1.25mg/3ml) Ud) 1.25 mg INH RQ2 PRN PRN Reason: Wheezing Albuterol/Ipratropium (Duoneb 3 Mg/0.5 Mg (3 Ml) Ud) 3 ml INH RQ6 [facility] Last Admin: 07/04/18 20:27 Dose: 3 ml Aspirin (Ecotrin) 325 mg PO DAILY [facility] Last Admin: 07/04/18 09:47 Dose: Not Given Ergocalciferol (Drisdol 50,000 Intl Units Cap) 1 cap PO QWK [facility] Last Admin: 06/30/18 09:38 Dose: 1 cap Furosemide (Lasix) 20 mg IVP DAILY [facility] Last Admin: 07/04/18 09:48 Dose: Not Given Furosemide (Lasix) 60 mg IVP Q12 [facility] Last Admin: 07/04/18 09:49 Dose: Not Given Heparin Sodium (Porcine) (Heparin) 5,000 units SC Q8 [facility] Last Admin: 07/04/18 14:06 Dose: 5,000 units Cefepime HCl 0.5 gm/ Dextrose 50 mls @ 100 mls/hr IVPB Q24H [facility]; Protocol Last Admin: 07/04/18 09:51 Dose: 100 mls/hr Linezolid (Zyvox 600mg/300ml D5w) 600 mg in 300 mls @ 200 mls/hr IVPB Q12H [facility]; Protocol Last Admin: 07/04/18 12:13 Dose: 200 mls/hr Dobutamine HCl/Dextrose (Dobutamine/Dextrose 5% 500mg/250ml) 500 mg in 250 mls @ 7.076 mls/hr IV .Q24H [facility]; Protocol Last Admin: 07/04/18 18:25 Dose: 7.076 mls/hr Multivitamins/Vitamin C 10 ml/Chromium/Copper/Manganese/Zinc 1 ml/ Amino Acids 1,011 mls @ 50 mls/hr IV .[id number] [facility] Stop: 07/05/18 14:13 Last Admin: 07/04/18 18:24 Dose: 50 mls/hr Amino Acids (Clinimix 4.25/5 % "E" (1000 Ml)) 1,000 mls @ 50 mls/hr IV .Q20H [facility] Stop: 07/05/18 17:59 Fat Emulsion Intravenous (Intralipid 20%) 500 mls @ 40 mls/hr IV ONCE [facility] Stop: 07/05/18 06:29 Last Admin: 07/04/18 18:24 Dose: 40 mls/hr Insulin Human Regular (Novolin R) 0 unit SC ACHS [facility]; Protocol Last Admin: 07/04/18 18:06 Dose: Not Given Metoprolol Tartrate (Lopressor) 25 mg PO BID [facility] Last Admin: 07/04/18 18:05 Dose: Not Given Montelukast Sodium (Singulair) 10 mg PO DAILY [facility] Last Admin: 07/04/18 09:50 Dose: Not Given Morphine Sulfate (Morphine) 2 mg IVP Q4 PRN PRN Reason: Anxiety Last Admin: 07/04/18 19:21 Dose: 2 mg Ranolazine (Ranexa) 500 mg PO BID [facility] Last Admin: 07/04/18 18:06 Dose: Not Given Repaglinide (Prandin) 2 mg PO DAILY [facility] Last Admin: 07/04/18 09:49 Dose: Not Given Roflumilast (Daliresp) 500 mcg PO DAILY [facility] Last Admin: 07/01/18 10:27 Dose: 500 mcg Rosuvastatin Calcium (Crestor) 20 mg PO HS [facility] Last Admin: 07/03/18 22:07 Dose: Not Given Sacubitril/Valsartan (Entresto 49 Mg-51 Mg) 1 tab PO BID [facility] Last Admin: 07/04/18 18:05 Dose: Not Given - Labs Labs: 07/02/18 06:28 07/02/18 06:28 PT 12.8 SECONDS (9.7-12.2) H 06/23/18 20:31 INR 1.2 06/23/18 20:31 APTT 33 SECONDS (21-34) 06/23/18 20:31 - Constitutional Appears: No Acute Distress, Cachectic, Chronically Ill - Head Exam Head Exam: NORMAL INSPECTION - Eye Exam Eye Exam: EOMI, PERRL - ENT Exam ENT Exam: Normal Oropharynx - Neck Exam Neck Exam: Normal Inspection - Respiratory Exam Respiratory Exam: Prolonged Expiratory Phase, Rhonchi, Wheezes - Cardiovascular Exam Cardiovascular Exam: Tachycardia, REGULAR RHYTHM, +S1, +S2 - GI/Abdominal Exam GI & Abdominal Exam: Soft, Normal Bowel Sounds - Extremities Exam Extremities Exam: absent: Calf Tenderness, Pedal Edema - Neurological Exam Neurological Exam: Awake - Psychiatric Exam Psychiatric exam: Normal Affect - Skin Skin Exam: Normal Color, Warm Assessment and Plan (1) Acute respiratory failure with hypoxia Status: Acute (2) Chr obstructive pulmonary disease w/ acute lower respiratory infxn Status: Acute (3) CHF exacerbation Status: Acute (4) Cardiomyopathy Status: Acute (5) DM type 2 (diabetes mellitus, type 2) Status: Acute (6) CAD (coronary artery disease) Status: Acute (7) Anemia Status: Acute (8) Ischemic cardiomyopathy Status: Acute - Assessment and Plan (Free Text) Plan: CONTINUE IV ABX IV CEFEPIME. CONTINUE IV V ZYVOX 600 MG IV Q [id number] OUTPUT IMPROVING. CONTINUE SUPPORTIVE CARE. PER PULMONARY. PT DNR/DNI. SPOKE TO FAMILY AND STAFF .
[2018-07-05] MEDS: Linezolid 600 mg in D5W 300 ml 600 MG/300 ML BAG IVPB SCH ×2 (00:26→13:04)
[2018-07-05] MEDS: Albuterol-Ipratrop 3 mg / 0.5 (3 ml) UD INH SCH ×3 (01:25→13:47)
[2018-07-05] MEDS: (Novolin R) Insulin Human Regular 100 units/ml vial SC SCH ×3 (08:50→17:40)
[2018-07-05] MEDS: Aspirin 325 mg EC Tablets PO SCH (10:02)
[2018-07-05] MEDS: Ranolazine 500 mg Extended Release Tablets PO SCH ×2 (10:02→17:41)
[2018-07-05] MEDS: Sacubitril/Valsartan 49-51 Tab PO SCH ×3 (10:02→17:42)
[2018-07-05] MEDS ORDERED: PPN#8 IV SCH (14:15)
--- NOTE | 2018-07-05 14:38 | CP.PCM.PN ---
Subjective - Date & Time of Evaluation Date of Evaluation: 07/05/18 Time of Evaluation: 14:37 - Subjective Subjective: Clinically patient remained same A meeting was held with the family members. Present in the meeting is the patient's proxy, and 1 of the workers compensation attorney's from the family. [employer] Brakeman Dr. Hitchcock was also present. A full discussion was done with the family members about the patient's condition and the central issue was lack of intubation patient's condition is deteriorating. As the patient's wishes were not to be intubated and DNR was signed 2 days ago patient currently medically is deteriorating. After full discussion with the tightener and the family the family will come back later if they want to rescind the DNR. In the meanwhile will continue the present supportive care and BiPAP. Objective - Vital Signs/Intake and Output Vital Signs (last 24 hours): Temp Pulse Resp BP Pulse Ox 98.0 F 98 H 24 130/99 H 98 07/05/18 08:52 07/05/18 13:49 07/05/18 12:55 07/05/18 12:55 07/05/18 08:52 - Medications Medications: Current Medications Albuterol Sulfate (Albuterol 0.042% Inhal Bell (1.25mg/3ml) Ud) 1.25 mg INH RQ2 PRN PRN Reason: Wheezing Albuterol/Ipratropium (Duoneb 3 Mg/0.5 Mg (3 Ml) Ud) 3 ml INH RQ6 [facility] Last Admin: 07/05/18 13:47 Dose: 3 ml Aspirin (Ecotrin) 325 mg PO DAILY [facility] Last Admin: 07/05/18 10:02 Dose: Not Given Ergocalciferol (Drisdol 50,000 Intl Units Cap) 1 cap PO QWK [facility] Last Admin: 06/30/18 09:38 Dose: 1 cap Furosemide (Lasix) 20 mg IVP DAILY [facility] Last Admin: 07/05/18 10:01 Dose: Not Given Furosemide (Lasix) 60 mg IVP Q12 [facility] Last Admin: 07/05/18 10:00 Dose: Not Given Cefepime HCl 0.5 gm/ Dextrose 50 mls @ 100 mls/hr IVPB Q24H [facility]; Protocol Last Admin: 07/05/18 10:01 Dose: 100 mls/hr Linezolid (Zyvox 600mg/300ml D5w) 600 mg in 300 mls @ 200 mls/hr IVPB Q12H [facility]; Protocol Last Admin: 07/05/18 00:26 Dose: 200 mls/hr Dobutamine HCl/Dextrose (Dobutamine/Dextrose 5% 500mg/250ml) 500 mg in 250 mls @ 7.076 mls/hr IV .Q24H [facility]; Protocol Last Admin: 07/04/18 18:25 Dose: 7.076 mls/hr Amino Acids (Clinimix 4.25/5 % "E" (1000 Ml)) 1,000 mls @ 50 mls/hr IV .Q20H [facility] Stop: 07/05/18 17:59 Multivitamins/Vitamin C 10 ml/Chromium/Copper/Manganese/Zinc 1 ml/ Amino Acids 1,011 mls @ 50 mls/hr IV .[id number] [facility] Stop: 07/06/18 14:00 Amino Acids (Clinimix 4.25/5 % "E" (1000 Ml)) 1,000 mls @ 50 mls/hr IV .Q20H [facility] Stop: 07/06/18 18:00 Insulin Human Regular (Novolin R) 0 unit SC ACHS [facility]; Protocol Last Admin: 07/05/18 12:30 Dose: 8 units Metoprolol Tartrate (Lopressor) 25 mg PO BID [facility] Last Admin: 07/05/18 10:02 Dose: Not Given Montelukast Sodium (Singulair) 10 mg PO DAILY [facility] Last Admin: 07/05/18 10:03 Dose: Not Given Morphine Sulfate (Morphine) 2 mg IVP Q4 PRN PRN Reason: Anxiety Last Admin: 07/05/18 13:16 Dose: 2 mg Ranolazine (Ranexa) 500 mg PO BID [facility] Last Admin: 07/05/18 10:02 Dose: Not Given Repaglinide (Prandin) 2 mg PO DAILY [facility] Last Admin: 07/05/18 10:00 Dose: Not Given Roflumilast (Daliresp) 500 mcg PO DAILY [facility] Last Admin: 07/01/18 10:27 Dose: 500 mcg Rosuvastatin Calcium (Crestor) 20 mg PO [facility] Last Admin: 07/04/18 22:20 Dose: Not Given Sacubitril/Valsartan (Entresto 49 Mg-51 Mg) 1 tab PO BID [facility] Last Admin: 07/05/18 10:02 Dose: Not Given - Labs Labs: 07/02/18 06:28 07/02/18 06:28 PT 12.8 SECONDS (9.7-12.2) H 06/23/18 20:31 INR 1.2 06/23/18 20:31 APTT 33 SECONDS (21-34) 06/23/18 20:31
[2018-07-05] MEDS: DOBUTamine 500mg/250ml D5W 500 MG/250 ML BAG IV SCH (15:30)
--- NOTE | 2018-07-05 15:49 | CP.PCM.CON ---
History of Present Illness - History of Present Illness History of Present Illness: Vascular Surgery Consult Note. Dr. Boyer service. Consulted for possible Triple Lumen Access. 87yo F with multiple comorbidities, who was admitted on 06/23/18 with acute exacerbation of CHF. Patient has had an extended stay in the hospital since for medical management. Patient was recently made DNR/DNI by the family and is curre ntly on Med/Surg floor on BiPAP. Patient is in visible respiratory distress even while being on he BiPAP. Patient had evidence of right upper extremity basilic vein thrombus as noted on the ultrasound on 06/30. Patient had a PICC on the left upper extremity however, was removed due to leaking and concern for left upper extremity DVT. Patient is currently unable to obtain further venous Ultrasound study to r/o DVT due to her respiratory status. Vascular surgery consulted for possible TLC placement. History obtained from chart review, staff and family at bedside. A complete 12- point ROS unable to be obtained due to patient's acute respiratory status. Review of Systems - Review of Systems Systems not reviewed;Unavailable: Respiratory Distress Past Patient History - Infectious Disease Hx of Infectious Diseases: None - Tetanus Immunizations Tetanus Immunization: Unknown - Past Medical History & Family History Past Medical History?: Yes - Past Social History Smoking Status: Never Smoked - CARDIAC Hx Cardiac Disorders: Yes (CAD) Hx Hypercholesterolemia: Yes - PULMONARY Hx Chronic Obstructive Pulmonary Disease (COPD): Yes - NEUROLOGICAL Hx Transient Ischemic Attacks (TIA): Yes - HEENT Hx HEENT Problems: No - RENAL Hx Chronic Kidney Disease: No - ENDOCRINE/METABOLIC Hx Diabetes Mellitus Type 2: Yes - HEMATOLOGICAL/ONCOLOGICAL Hx Anemia: Yes - INTEGUMENTARY Hx Dermatological Problems: No - MUSCULOSKELETAL/RHEUMATOLOGICAL Hx Arthritis: Yes Hx Falls: No - GASTROINTESTINAL Hx Gastrointestinal Disorders: No - GENITOURINARY/GYNECOLOGICAL Hx Genitourinary Disorders: No - PSYCHIATRIC Hx Anxiety: Yes Hx Substance Use: No - SURGICAL HISTORY Hx Appendectomy: Yes Hx Coronary Stent: Yes - ANESTHESIA Hx Anesthesia: Yes Hx Anesthesia Reactions: No Hx Malignant Hyperthermia: No Meds Allergies/Adverse Reactions: Allergies Allergy/AdvReac Type Severity Reaction Status Date / Time clopidogrel Allergy Mild SWELLING Verified 12/22/17 13:34 - Medications Medications: Current Medications Albuterol Sulfate (Albuterol 0.042% Inhal Bell (1.25mg/3ml) Ud) 1.25 mg INH RQ2 PRN PRN Reason: Wheezing Albuterol/Ipratropium (Duoneb 3 Mg/0.5 Mg (3 Ml) Ud) 3 ml INH RQ6 [facility] Last Admin: 07/05/18 13:47 Dose: 3 ml Aspirin (Ecotrin) 325 mg PO DAILY [facility] Last Admin: 07/05/18 10:02 Dose: Not Given Ergocalciferol (Drisdol 50,000 Intl Units Cap) 1 cap PO QWK [facility] Last Admin: 06/30/18 09:38 Dose: 1 cap Furosemide (Lasix) 20 mg IVP DAILY [facility] Last Admin: 07/05/18 10:01 Dose: Not Given Furosemide (Lasix) 60 mg IVP Q12 [facility] Last Admin: 07/05/18 10:00 Dose: Not Given Cefepime HCl 0.5 gm/ Dextrose 50 mls @ 100 mls/hr IVPB Q24H [facility]; Protocol Last Admin: 07/05/18 10:01 Dose: 100 mls/hr Linezolid (Zyvox 600mg/300ml D5w) 600 mg in 300 mls @ 200 mls/hr IVPB Q12H [facility]; Protocol Last Admin: 07/05/18 00:26 Dose: 200 mls/hr Dobutamine HCl/Dextrose (Dobutamine/Dextrose 5% 500mg/250ml) 500 mg in 250 mls @ 7.076 mls/hr IV .Q24H [facility]; Protocol Last Admin: 07/04/18 18:25 Dose: 7.076 mls/hr Amino Acids (Clinimix 4.25/5 % "E" (1000 Ml)) 1,000 mls @ 50 mls/hr IV .Q20H [facility] Stop: 07/05/18 17:59 Multivitamins/Vitamin C 10 ml/Chromium/Copper/Manganese/Zinc 1 ml/ Amino Acids 1,011 mls @ 50 mls/hr IV .[id number] [facility] Stop: 07/06/18 14:00 Amino Acids (Clinimix 4.25/5 % "E" (1000 Ml)) 1,000 mls @ 50 mls/hr IV .Q20H [facility] Stop: 07/06/18 18:00 Insulin Human Regular (Novolin R) 0 unit SC ACHS [facility]; Protocol Last Admin: 07/05/18 12:30 Dose: 8 units Metoprolol Tartrate (Lopressor) 25 mg PO BID [facility] Last Admin: 07/05/18 10:02 Dose: Not Given Montelukast Sodium (Singulair) 10 mg PO DAILY [facility] Last Admin: 07/05/18 10:03 Dose: Not Given Morphine Sulfate (Morphine) 2 mg IVP Q4 PRN PRN Reason: Anxiety Last Admin: 07/05/18 13:16 Dose: 2 mg Ranolazine (Ranexa) 500 mg PO BID [facility] Last Admin: 07/05/18 10:02 Dose: Not Given Repaglinide (Prandin) 2 mg PO DAILY [facility] Last Admin: 07/05/18 10:00 Dose: Not Given Roflumilast (Daliresp) 500 mcg PO DAILY [facility] Last Admin: 07/01/18 10:27 Dose: 500 mcg Rosuvastatin Calcium (Crestor) 20 mg PO HS [facility] Last Admin: 07/04/18 22:20 Dose: Not Given Sacubitril/Valsartan (Entresto 49 Mg-51 Mg) 1 tab PO BID [facility] Last Admin: 07/05/18 10:02 Dose: Not Given Physical Exam - Constitutional Appears: In Acute Distress - Eye Exam Eye Exam: EOMI. absent: Scleral icterus - ENT Exam Additional comments: On BiPAP. - Respiratory Exam Additional comments: On BiPAP. With marked accessory muscle use. In apparent increased respiratory e ffort. - Cardiovascular Exam Cardiovascular Exam: JVD - GI/Abdominal Exam GI & Abdominal Exam: Soft. absent: Distended, Guarding, Tenderness - Extremities Exam Extremities exam: Positive for: normal inspection - Neurological Exam Additional comments: Awake. On BiPAP Results - Vital Signs Recent Vital Signs: Last Vital Signs Temp 98.0 F 07/05/18 08:52 Pulse 98 H 07/05/18 13:49 Resp 24 07/05/18 12:55 BP 130/99 H 07/05/18 12:55 Pulse Ox 98 07/05/18 08:52 - Labs Result Diagrams: 07/02/18 06:28 07/02/18 06:28 Labs: Laboratory Results - last 24 hr 07/04/18 07/04/18 07/05/18 16:36 21:09 06:40 POC Glucose (mg/dL) 251 H 269 H 374 H 07/05/18 11:35 POC Glucose (mg/dL) 350 H Assessment & Plan - Assessment and Plan (Free Text) Assessment: 87yo F with multiple comorbidities. Surgery consulted for possible TLC placement. Plan: - Patient will not tolerate placement of TLC in IJ or Subclavian as she will not tolerate patient positioning - A Femoral puncture is not ideal as it comes with greater risk of infection and bleeding as patient will not be able to be positioned in the ideal supine position for proper exposure of surgical site - At this time, the risks of the procedure outweigh the benefits - No surgical intervention at this time - Discussed with family in detail regarding the recommendations Further recs as per Dr. Rosalind Mueller PGY2 surgery
--- NOTE | 2018-07-05 17:03 | CP.PCM.PN ---
Subjective - Date & Time of Evaluation Date of Evaluation: 07/05/18 Time of Evaluation: 17:03 Objective - Vital Signs/Intake and Output Vital Signs (last 24 hours): Temp Pulse Resp BP Pulse Ox 98 F 89 24 76/38 L 98 07/05/18 15:39 07/05/18 15:39 07/05/18 15:39 07/05/18 15:39 07/05/18 15:39 Intake and Output: 07/05/18 07/05/18 06:59 18:59 Output Total 100 Balance -100 - Medications Medications: Current Medications Albuterol Sulfate (Albuterol 0.042% Inhal Bell (1.25mg/3ml) Ud) 1.25 mg INH RQ2 PRN PRN Reason: Wheezing Albuterol/Ipratropium (Duoneb 3 Mg/0.5 Mg (3 Ml) Ud) 3 ml INH RQ6 [facility] Last Admin: 07/05/18 13:47 Dose: 3 ml Aspirin (Ecotrin) 325 mg PO DAILY [facility] Last Admin: 07/05/18 10:02 Dose: Not Given Ergocalciferol (Drisdol 50,000 Intl Units Cap) 1 cap PO QWK [facility] Last Admin: 06/30/18 09:38 Dose: 1 cap Furosemide (Lasix) 20 mg IVP DAILY [facility] Last Admin: 07/05/18 10:01 Dose: Not Given Furosemide (Lasix) 60 mg IVP Q12 [facility] Last Admin: 07/05/18 10:00 Dose: Not Given Cefepime HCl 0.5 gm/ Dextrose 50 mls @ 100 mls/hr IVPB Q24H [facility]; Protocol Last Admin: 07/05/18 10:01 Dose: 100 mls/hr Linezolid (Zyvox 600mg/300ml D5w) 600 mg in 300 mls @ 200 mls/hr IVPB Q12H [facility]; Protocol Last Admin: 07/05/18 00:26 Dose: 200 mls/hr Dobutamine HCl/Dextrose (Dobutamine/Dextrose 5% 500mg/250ml) 500 mg in 250 mls @ 7.076 mls/hr IV .Q24H [facility]; Protocol Last Admin: 07/04/18 18:25 Dose: 7.076 mls/hr Amino Acids (Clinimix 4.25/5 % "E" (1000 Ml)) 1,000 mls @ 50 mls/hr IV .Q20H [facility] Stop: 07/05/18 17:59 Multivitamins/Vitamin C 10 ml/Chromium/Copper/Manganese/Zinc 1 ml/ Amino Acids 1,011 mls @ 50 mls/hr IV .[id number] [facility] Stop: 07/06/18 14:00 Amino Acids (Clinimix 4.25/5 % "E" (1000 Ml)) 1,000 mls @ 50 mls/hr IV .Q20H [facility] Stop: 07/06/18 18:00 Insulin Human Regular (Novolin R) 0 unit SC [facility]; Protocol Last Admin: 07/05/18 12:30 Dose: 8 units Metoprolol Tartrate (Lopressor) 25 mg PO BID [facility] Last Admin: 07/05/18 10:02 Dose: Not Given Montelukast Sodium (Singulair) 10 mg PO DAILY [facility] Last Admin: 07/05/18 10:03 Dose: Not Given Morphine Sulfate (Morphine) 2 mg IVP Q4 PRN PRN Reason: Anxiety Last Admin: 07/05/18 13:16 Dose: 2 mg Ranolazine (Ranexa) 500 mg PO BID [facility] Last Admin: 07/05/18 10:02 Dose: Not Given Repaglinide (Prandin) 2 mg PO DAILY [facility] Last Admin: 07/05/18 10:00 Dose: Not Given Roflumilast (Daliresp) 500 mcg PO DAILY [facility] Last Admin: 07/01/18 10:27 Dose: 500 mcg Rosuvastatin Calcium (Crestor) 20 mg PO HS [facility] Last Admin: 07/04/18 22:20 Dose: Not Given Sacubitril/Valsartan (Entresto 49 Mg-51 Mg) 1 tab PO BID [facility] Last Admin: 07/05/18 10:02 Dose: Not Given - Labs Labs: 07/02/18 06:28 07/02/18 06:28 PT 12.8 SECONDS (9.7-12.2) H 06/23/18 20:31 INR 1.2 06/23/18 20:31 APTT 33 SECONDS (21-34) 06/23/18 20:31 Assessment and Plan (1) Acute respiratory failure with hypoxia Status: Acute (2) Chr obstructive pulmonary disease w/ acute lower respiratory infxn Status: Acute (3) CHF exacerbation Status: Acute (4) Cardiomyopathy Status: Acute (5) DM type 2 (diabetes mellitus, type 2) Status: Acute (6) CAD (coronary artery disease) Status: Acute (7) Anemia Status: Acute (8) Ischemic cardiomyopathy Status: Acute
--- NOTE | 2018-07-05 17:37 | CP.PCM.PN ---
Subjective - Date & Time of Evaluation Date of Evaluation: 07/05/18 Time of Evaluation: 17:00 - Subjective Subjective: Patient seen and examined at bedside on BiPAP and very tachypneic Hypotensive no response to tactile stimuli CXR 07/04: Persistent bilateral right and left lower lung field infiltrates or edema. Heart is enlarged. Continue supportive therapy Patient is DNR/DNI. Objective - Vital Signs/Intake and Output Vital Signs (last 24 hours): Temp Pulse Resp BP Pulse Ox 98 F 89 24 76/38 L 98 07/05/18 15:39 07/05/18 15:39 07/05/18 15:39 07/05/18 15:39 07/05/18 15:39 Intake and Output: 07/05/18 07/05/18 06:59 18:59 Output Total 100 Balance -100 - Medications Medications: Current Medications Albuterol Sulfate (Albuterol 0.042% Inhal Bell (1.25mg/3ml) Ud) 1.25 mg INH RQ2 PRN PRN Reason: Wheezing Albuterol/Ipratropium (Duoneb 3 Mg/0.5 Mg (3 Ml) Ud) 3 ml INH RQ6 JONNA Last Admin: 07/05/18 13:47 Dose: 3 ml Aspirin (Ecotrin) 325 mg PO DAILY JONNA Last Admin: 07/05/18 10:02 Dose: Not Given Ergocalciferol (Drisdol 50,000 Intl Units Cap) 1 cap PO QWK JONNA Last Admin: 06/30/18 09:38 Dose: 1 cap Furosemide (Lasix) 20 mg IVP DAILY JONNA Last Admin: 07/05/18 10:01 Dose: Not Given Furosemide (Lasix) 60 mg IVP Q12 JONNA Last Admin: 07/05/18 10:00 Dose: Not Given Cefepime HCl 0.5 gm/ Dextrose 50 mls @ 100 mls/hr IVPB Q24H JONNA; Protocol Last Admin: 07/05/18 10:01 Dose: 100 mls/hr Linezolid (Zyvox 600mg/300ml D5w) 600 mg in 300 mls @ 200 mls/hr IVPB Q12H JONNA; Protocol Last Admin: 07/05/18 13:04 Dose: 200 mls/hr Dobutamine HCl/Dextrose (Dobutamine/Dextrose 5% 500mg/250ml) 500 mg in 250 mls @ 7.076 mls/hr IV .Q24H [facility]; Protocol Last Admin: 07/04/18 18:25 Dose: 7.076 mls/hr Amino Acids (Clinimix 4.25/5 % "E" (1000 Ml)) 1,000 mls @ 50 mls/hr IV .Q20H JONNA Stop: 07/05/18 17:59 Multivitamins/Vitamin C 10 ml/Chromium/Copper/Manganese/Zinc 1 ml/ Amino Acids 1,011 mls @ 50 mls/hr IV .[id number] JONNA Stop: 07/06/18 14:00 Amino Acids (Clinimix 4.25/5 % "E" (1000 Ml)) 1,000 mls @ 50 mls/hr IV .Q20H [facility] Stop: 07/06/18 18:00 Insulin Human Regular (Novolin R) [address] [facility]; Protocol Last Admin: 07/05/18 12:30 Dose: 8 units Metoprolol Tartrate (Lopressor) 25 mg PO BID [facility] Last Admin: 07/05/18 10:02 Dose: Not Given Montelukast Sodium (Singulair) 10 mg PO DAILY [facility] Last Admin: 07/05/18 10:03 Dose: Not Given Morphine Sulfate (Morphine) 2 mg IVP Q4 PRN PRN Reason: Anxiety Last Admin: 07/05/18 13:16 Dose: 2 mg Ranolazine (Ranexa) 500 mg PO BID [facility] Last Admin: 07/05/18 10:02 Dose: Not Given Repaglinide (Prandin) 2 mg PO DAILY [facility] Last Admin: 07/05/18 10:00 Dose: Not Given Roflumilast (Daliresp) 500 mcg PO DAILY [facility] Last Admin: 07/01/18 10:27 Dose: 500 mcg Rosuvastatin Calcium (Crestor) 20 mg PO HS [facility] Last Admin: 07/04/18 22:20 Dose: Not Given Sacubitril/Valsartan (Entresto 49 Mg-51 Mg) 1 tab PO BID [facility] Last Admin: 07/05/18 10:02 Dose: Not Given - Labs Labs: 07/02/18 06:28 07/02/18 06:28 PT 12.8 SECONDS (9.7-12.2) H 06/23/18 20:31 INR 1.2 06/23/18 20:31 APTT 33 SECONDS (21-34) 06/23/18 20:31 Assessment and Plan (1) Acute respiratory failure with hypoxia Assessment & Plan: patient is DNR and DNI On morphine Continue present care for now prognosis poor Status: Acute (2) CHF exacerbation Status: Acute (3) COPD exacerbation Status: Acute (4) Cardiomyopathy Status: Acute (5) Pneumonia Status: Acute
[2018-07-05] MEDS ORDERED: PPN#9 IV SCH (18:00)
--- NOTE | 2018-07-05 18:11 | CP.PCM.CON ---
<Emily Ramirez - Last Filed: 07/05/18 19:39> History of Present Illness - History of Present Illness History of Present Illness: ICU Consult Note for Dr. Malik CC: SOB and Hypotension HPI: 87 y/o female with PMHx of CAD w/ stents, ischemic CM EF 30% with AICD, DM2, COPD, HTN, asthma, arthritis, anxiety was admitted to hospital due to shortness of breath with cough on 06/24/18. On admission CXR showed mild CHF. ID consulted for PNA and COPD exacerbation. Started on IV cefipime on 07/01. Dr. Malik (pulm) and critical care consulted. Family wanted patient to be DNR/DNI. However, patient had increasing SOB and became hypotensive. The family had the DNR/DNI status rescind. Patient [facility] ICU. Due to patient condition, ROS unable to be obtained. PMHx: as stated above PSHx: unable to be obtained due to patient condition - see admission note 06/24 FHx: unable to be obtained due to patient condition - see admission note 06/24 SocHx: unable to be obtained due to patient condition - see admission note 06/24 Meds: unable to be obtained due to patient condition - see admission note 06/24 Allergies: clopidogrel Past Patient History - Infectious Disease Hx of Infectious Diseases: None - Tetanus Immunizations Tetanus Immunization: Unknown - Past Medical History & Family History Past Medical History?: Yes - Past Social History Smoking Status: Never Smoked - CARDIAC Hx Cardiac Disorders: Yes (CAD) Hx Hypercholesterolemia: Yes - PULMONARY Hx Chronic Obstructive Pulmonary Disease (COPD): Yes - NEUROLOGICAL Hx Transient Ischemic Attacks (TIA): Yes - HEENT Hx HEENT Problems: No - RENAL Hx Chronic Kidney Disease: No - ENDOCRINE/METABOLIC Hx Diabetes Mellitus Type 2: Yes - HEMATOLOGICAL/ONCOLOGICAL Hx Anemia: Yes - INTEGUMENTARY Hx Dermatological Problems: No - MUSCULOSKELETAL/RHEUMATOLOGICAL Hx Arthritis: Yes Hx Falls: No - GASTROINTESTINAL Hx Gastrointestinal Disorders: No - GENITOURINARY/GYNECOLOGICAL Hx Genitourinary Disorders: No - PSYCHIATRIC Hx Anxiety: Yes Hx Substance Use: No - SURGICAL HISTORY Hx Appendectomy: Yes Hx Coronary Stent: Yes - ANESTHESIA Hx Anesthesia: Yes Hx Anesthesia Reactions: No Hx Malignant Hyperthermia: No Meds Allergies/Adverse Reactions: Allergies Allergy/AdvReac Type Severity Reaction Status Date / Time clopidogrel Allergy Mild SWELLING Verified 12/22/17 13:34 - Medications Medications: Current Medications Albuterol Sulfate (Albuterol 0.042% Inhal Bell (1.25mg/3ml) Ud) 1.25 mg INH RQ2 PRN PRN Reason: Wheezing Albuterol/Ipratropium (Duoneb 3 Mg/0.5 Mg (3 Ml) Ud) 3 ml INH RQ6 JONNA Last Admin: 07/05/18 13:47 Dose: 3 ml Aspirin (Ecotrin) 325 mg PO DAILY [facility] Last Admin: 07/05/18 10:02 Dose: Not Given Ergocalciferol (Drisdol 50,000 Intl Units Cap) 1 cap PO QWK [facility] Last Admin: 06/30/18 09:38 Dose: 1 cap Furosemide (Lasix) 20 mg IVP DAILY [facility] Last Admin: 07/05/18 10:01 Dose: Not Given Furosemide (Lasix) 60 mg IVP Q12 JONNA Last Admin: 07/05/18 10:00 Dose: Not Given Cefepime HCl 0.5 gm/ Dextrose 50 mls @ 100 mls/hr IVPB Q24H [facility]; Protocol Last Admin: 07/05/18 10:01 Dose: 100 mls/hr Linezolid (Zyvox 600mg/300ml D5w) 600 mg in 300 mls @ 200 mls/hr IVPB Q12H [facility]; Protocol Last Admin: 07/05/18 13:04 Dose: 200 mls/hr Dobutamine HCl/Dextrose (Dobutamine/Dextrose 5% 500mg/250ml) 500 mg in 250 mls @ 7.076 mls/hr IV .Q24H [facility]; Protocol Last Admin: 07/04/18 18:25 Dose: 7.076 mls/hr Multivitamins/Vitamin C 10 ml/Chromium/Copper/Manganese/Zinc 1 ml/ Amino Acids 1,011 mls @ 50 mls/hr IV .[id number] [facility] Stop: 07/06/18 14:00 Last Admin: 07/05/18 17:40 Dose: Not Given Amino Acids (Clinimix 4.25/5 % "E" (1000 Ml)) 1,000 mls @ 50 mls/hr IV .Q20H [facility] Stop: 07/06/18 18:00 Insulin Human Regular (Novolin R) 0 unit SC [facility]; Protocol Last Admin: 07/05/18 17:40 Dose: Not Given Metoprolol Tartrate (Lopressor) 25 mg PO BID [facility] Last Admin: 07/05/18 17:39 Dose: Not Given Montelukast Sodium (Singulair) 10 mg PO DAILY [facility] Last Admin: 07/05/18 10:03 Dose: Not Given Morphine Sulfate (Morphine) 2 mg IVP Q4 PRN PRN Reason: Anxiety Last Admin: 07/05/18 13:16 Dose: 2 mg Ranolazine (Ranexa) 500 mg PO BID [facility] Last Admin: 07/05/18 17:41 Dose: Not Given Repaglinide (Prandin) 2 mg PO DAILY [facility] Last Admin: 07/05/18 10:00 Dose: Not Given Roflumilast (Daliresp) 500 mcg PO DAILY [facility] Last Admin: 07/01/18 10:27 Dose: 500 mcg Rosuvastatin Calcium (Crestor) 20 mg PO HS [facility] Last Admin: 07/04/18 22:20 Dose: Not Given Sacubitril/Valsartan (Entresto 49 Mg-51 Mg) 1 tab PO BID [facility] Last Admin: 07/05/18 17:42 Dose: Not Given Physical Exam - Constitutional Appears: In Acute Distress - Head Exam Head Exam: ATRAUMATIC, NORMAL INSPECTION, NORMOCEPHALIC - Eye Exam Eye Exam: absent: Conjunctival injection, Nystagmus, Scleral icterus - ENT Exam ENT Exam: Mucous Membranes Dry - Respiratory Exam Respiratory Exam: Decreased Breath Sounds (right), Rhonchi. absent: Clear to Auscultation Bilateral, NORMAL BREATHING PATTERN - Cardiovascular Exam Cardiovascular Exam: REGULAR RHYTHM, +S1, +S2. absent: Tachycardia - GI/Abdominal Exam GI & Abdominal Exam: Normal Bowel Sounds. absent: Diminished Bowel Sounds, Distended, Firm, Guarding, Rebound - Extremities Exam Extremities exam: Positive for: normal capillary refill, normal inspection. Negative for: calf tenderness, pedal edema, tenderness - Neurological Exam Neurological exam: Altered - Skin Skin Exam: Intact, Normal Color Additional comments: pigtail midclavicular between rib 3 and 4 right side triple lumen catheter right side neck near SCM Results - Vital Signs Recent Vital Signs: Last Vital Signs Temp 98 F 07/05/18 15:39 Pulse 89 07/05/18 15:39 Resp 24 07/05/18 15:39 BP 76/38 L 07/05/18 15:39 Pulse Ox 98 07/05/18 15:39 - Labs Result Diagrams: 07/02/18 06:28 07/02/18 06:28 Labs: Laboratory Results - last 24 hr 07/04/18 07/05/18 07/05/18 21:09 06:40 11:35 POC Glucose (mg/dL) 269 H 374 H 350 H Assessment & Plan - Assessment and Plan (Free Text) Assessment: 87 y/o female with PMHx of CAD w/ stents, ischemic CM EF 30% with AICD, DM2, COPD, HTN, asthma, arthritis, anxiety was admitted to hospital due to shortness of breath with cough on 06/25/18. In ICU for increasing SOB and hypotension. Neuro -sedated on precedex drip -not alert, awake, non-responsive Pulm -intubated, ventilated -CXR shows pneumothorax of left lung, chest tube placed -during intubation, patient found to be congested - duoneb and mucomist -daliresp 500 mcg PO daily on hold due to hypotension -ABG pending CV -dobutamine drip for hypotension -aspirin 325 mg daily -crestor 20 mg qhs -lasix IV daily on hold due to hypotension -metoprolol held due to hypotension -ranexa 500 mg PO BID on hold -entresto 1 tab PO BID on hold due to hypotension GI -no active issues Renal -trend CMP -BUN/Cr elevated and uptrending, last taken 07/02 - 64/2.3 (admission was within normal limits: 05/19.1) ID -sputum culture taken on 06/25 positive for pseudomonas aeruginosa -cefipime started 07/01 -zyvox started 07/03 Endo -h/o DM -ISS -accuchecks ACHS -repaglinide 2 mg PO daily held -hypoglycemia protocol Heme -normocytic anemia -trend CBC code: FULL case discussed with Dr. King Ramirez PGY1 <Luke Malik - Last Filed: 07/06/18 08:48> Meds - Medications Medications: Current Medications Albuterol Sulfate (Albuterol 0.042% Inhal Bell (1.25mg/3ml) Ud) 1.25 mg INH RQ2 PRN PRN Reason: Wheezing Albuterol/Ipratropium (Duoneb 3 Mg/0.5 Mg (3 Ml) Ud) 3 ml INH RQ6 JONNA Last Admin: 07/06/18 07:47 Dose: 3 ml Calcium Acetate (Phoslo) 667 mg PO BIDCC JONNA Ergocalciferol (Drisdol 50,000 Intl Units Cap) 1 cap PO QWK JONNA Last Admin: 06/30/18 09:38 Dose: 1 cap Furosemide (Lasix) 20 mg IVP DAILY [facility] Last Admin: 07/05/18 10:01 Dose: Not Given Cefepime HCl 0.5 gm/ Dextrose 50 mls @ 100 mls/hr IVPB Q24H [facility]; Protocol Last Admin: 07/05/18 10:01 Dose: 100 mls/hr Linezolid (Zyvox 600mg/300ml D5w) 600 mg in 300 mls @ 200 mls/hr IVPB Q12H [facility]; Protocol Last Admin: 07/06/18 00:26 Dose: 200 mls/hr Dobutamine HCl/Dextrose (Dobutamine/Dextrose 5% 500mg/250ml) 500 mg in 250 mls @ 7.076 mls/hr IV .Q24H [facility]; Protocol Last Admin: 07/06/18 02:01 Dose: 7.076 mls/hr Dexmedetomidine HCl 200 mcg/ (Sodium Chloride) 50 mls @ 2.34 mls/hr IV TITR PRN; Protocol PRN Reason: Sedation Last Admin: 07/06/18 07:24 Dose: 1.49 mcg/kg/hr, 17.5 mls/hr Norepinephrine Bitartrate 4 mg (/ Sodium Chloride) 254 mls @ 15.24 mls/hr IV .[id number] PRN; Protocol PRN Reason: TITRATE PER MD ORDER Last Titration: 07/06/18 07:00 Dose: 4.93 mcg/min, 18.78 mls/hr Sodium Bicarbonate 100 meq/ (Sodium Chloride) 1,100 mls @ 100 mls/hr IV .Q11H [facility]ONNA Last Admin: 07/06/18 02:25 Dose: 100 mls/hr Insulin Human Regular (Novolin R) 0 unit SC Q6H [facility]; Protocol Last Admin: 07/06/18 06:24 Dose: 6 u Metoprolol Tartrate (Lopressor) 25 mg PO BID [facility] Last Admin: 07/05/18 17:39 Dose: Not Given Montelukast Sodium (Singulair) 10 mg PO DAILY [facility] Last Admin: 07/05/18 10:03 Dose: Not Given Morphine Sulfate (Morphine) 2 mg IVP Q4 PRN PRN Reason: Anxiety Last Admin: 07/05/18 13:16 Dose: 2 mg Pantoprazole Sodium (Protonix Inj) 40 mg IVP DAILY [facility] Ranolazine (Ranexa) 500 mg PO BID [facility] Last Admin: 07/05/18 17:41 Dose: Not Given Repaglinide (Prandin) 2 mg PO DAILY [facility] Last Admin: 07/05/18 10:00 Dose: Not Given Roflumilast (Daliresp) 500 mcg PO DAILY [facility] Last Admin: 07/01/18 10:27 Dose: 500 mcg Rosuvastatin Calcium (Crestor) 20 mg PO HS [facility] Last Admin: 07/05/18 21:40 Dose: Not Given Sacubitril/Valsartan (Entresto 49 Mg-51 Mg) 1 tab PO BID [facility] Last Admin: 07/05/18 17:42 Dose: Not Given Results - Vital Signs Recent Vital Signs: Last Vital Signs Temp 97.4 F L 07/06/18 04:00 Pulse 107 H 07/06/18 06:50 Resp 24 07/06/18 06:50 BP 126/53 L 07/06/18 06:33 Pulse Ox 100 07/06/18 06:50 - Labs Result Diagrams: 07/06/18 05:37 07/06/18 05:35 Labs: Laboratory Results - last 24 hr 07/05/18 07/05/18 07/05/18 00:38 11:35 17:14 WBC RBC Hgb Hct MCV MCH MCHC RDW Plt Count MPV Neut % (Auto) Lymph % (Auto) Mchenry % (Auto) Eos % (Auto) Baso % (Auto) Neut # (Auto) Lymph # (Auto) Mchenry # (Auto) Eos # (Auto) Baso # (Auto) Neutrophils % (Manual) Lymphocytes % (Manual) Monocytes % (Manual) Eosinophils % (Manual) Platelet Estimate Large Platelets Hypochromasia (manual) Poikilocytosis (manual Basophilic Stippling Anisocytosis (manual) Tear Drop Cells Ovalocytes Chyna Cells PT INR APTT Puncture Site Rb pCO2 64 H pO2 147 H HCO3 18.5 L ABG pH 7.12 L* ABG Total CO2 22.8 ABG O2 Saturation 99.3 H ABG Base Excess -8.2 L ABG Hemoglobin 7.3 L ABG Carboxyhemoglobin 1.8 H POC ABG HHb (Measured) 0.7 ABG Methemoglobin 1.4 Candido Test Na ABG Potassium A-a O2 Difference 486.0 Respiratory Index 3.3 Hgb O2 Saturation 96.2 Glucose Lactate Vent Mode Prvc Mechanical Rate 20 FiO2 100.0 Tidal Volume 360 PEEP 3 Crit Value Called To Dr. aviles Crit Value Called By Cuong snuff maker Crit Value Read Back Y Blood Gas Notified Time 119 Sodium Potassium Chloride Carbon Dioxide Anion Gap BUN Creatinine Est GFR ( Amer) Est GFR (Non-Af Amer) POC Glucose (mg/dL) 350 H 283 H Random Glucose Calcium Phosphorus Magnesium Total Bilirubin AST ALT Alkaline Phosphatase Total Protein Albumin Globulin Albumin/Globulin Ratio Arterial Blood Potassium Blood Type Antibody Screen 07/05/18 07/05/18 07/05/18 20:53 20:53 20:53 WBC 21.6 H D RBC 2.71 L Hgb 7.4 L Hct 23.7 L MCV 87.4 MCH 27.4 MCHC 31.3 L RDW 17.4 H Plt Count 150 MPV 10.6 Neut % (Auto) 91.3 H Lymph % (Auto) 0.8 L Mchenry % (Auto) 7.4 Eos % (Auto) 0.2 Baso % (Auto) 0.3 Neut # (Auto) 19.7 H Lymph # (Auto) 0.2 L Mchenry # (Auto) 1.6 H Eos # (Auto) 0.0 Baso # (Auto) 0.1 Neutrophils % (Manual) 89 H Lymphocytes % (Manual) 1 L Monocytes % (Manual) 8 Eosinophils % (Manual) 2 Platelet Estimate Normal Large Platelets Present Hypochromasia (manual) Slight Poikilocytosis (manual Slight Basophilic Stippling Slight Anisocytosis (manual) Slight Tear Drop Cells Slight Ovalocytes Slight Phoenix Cells Slight PT 14.0 H INR 1.3 APTT 30 Puncture Site pCO2 pO2 HCO3 ABG pH ABG Total CO2 ABG O2 Saturation ABG Base Excess ABG Hemoglobin ABG Carboxyhemoglobin POC ABG HHb (Measured) ABG Methemoglobin Candido Test ABG Potassium A-a O2 Difference Respiratory Index Hgb O2 Saturation Glucose Lactate Vent Mode Mechanical Rate FiO2 Tidal Volume PEEP Crit Value Called To Crit Value Called By Crit Value Read Back Blood Gas Notified Time Sodium 128 L Potassium 6.6 H* D Chloride 97 L Carbon Dioxide 19 L Anion Gap 18 BUN 112 H* D Creatinine 4.9 H Est GFR ( Amer) 10 Est GFR (Non-Af Amer) 8 POC Glucose (mg/dL) Random Glucose 245 H Calcium 7.8 L Phosphorus 8.3 H Magnesium 2.6 H Total Bilirubin 0.8 AST 55 H ALT 39 Alkaline Phosphatase 163 H Total Protein 5.9 L Albumin 3.1 L Globulin 2.8 Albumin/Globulin Ratio 1.1 Arterial Blood Potassium Blood Type Antibody Screen 07/05/18 07/05/18 07/05/18 21:00 22:05 23:58 WBC RBC Hgb Hct MCV MCH MCHC RDW Plt Count MPV Neut % (Auto) Lymph % (Auto) Mchenry % (Auto) Eos % (Auto) Baso % (Auto) Neut # (Auto) Lymph # (Auto) Mchenry # (Auto) Eos # (Auto) Baso # (Auto) Neutrophils % (Manual) Lymphocytes % (Manual) Monocytes % (Manual) Eosinophils % (Manual) Platelet Estimate Large Platelets Hypochromasia (manual) Poikilocytosis (manual Basophilic Stippling Anisocytosis (manual) Tear Drop Cells Ovalocytes [place] Cells PT INR APTT Puncture Site Lfem Rradial pCO2 71 H* 60 H pO2 53 L 90 HCO3 14.9 L 20.4 L ABG pH 7.05 L* 7.19 L* ABG Total CO2 21.8 L 24.7 ABG O2 Saturation 88.8 L 96.1 ABG Base Excess -11.9 L -5.8 L ABG Hemoglobin 10.9 L ABG Carboxyhemoglobin 0.6 POC ABG HHb (Measured) 3.9 ABG Methemoglobin 0.5 Candido Test Neg Pos ABG Potassium 6.5 H* A-a O2 Difference 571.0 192.0 Respiratory Index 10.8 2.1 Hgb O2 Saturation 95.0 Glucose 261 H Lactate 1.4 Vent Mode Prvc Mechanical Rate 12 FiO2 100.0 50.0 Tidal Volume 360 PEEP 3 Crit Value Called To Dr. stefan aviles Crit Value Called By jon Ambriz rcp Crit Value Read Back Y Y Blood Gas Notified Time 2111 2219 Sodium 129.0 L Potassium Chloride 101.0 Carbon Dioxide Anion Gap BUN Creatinine Est GFR ( Amer) Est GFR (Non-Af Amer) POC Glucose (mg/dL) 229 H Random Glucose Calcium Phosphorus Magnesium Total Bilirubin AST ALT Alkaline Phosphatase Total Protein Albumin Globulin Albumin/Globulin Ratio Arterial Blood Potassium 6.5 H* Blood Type Antibody Screen 07/06/18 07/06/18 07/06/18 00:37 05:06 05:21 WBC RBC Hgb Hct MCV MCH MCHC RDW Plt Count MPV Neut % (Auto) Lymph % (Auto) Mchenry % (Auto) Eos % (Auto) Baso % (Auto) Neut # (Auto) Lymph # (Auto) Mchenry # (Auto) Eos # (Auto) Baso # (Auto) Neutrophils % (Manual) Lymphocytes % (Manual) Monocytes % (Manual) Eosinophils % (Manual) Platelet Estimate Large Platelets Hypochromasia (manual) Poikilocytosis (manual Basophilic Stippling Anisocytosis (manual) Tear Drop Cells Ovalocytes [place] Cells PT INR APTT Puncture Site Rb pCO2 64 H pO2 123 H HCO3 21.7 ABG pH 7.20 L ABG Total CO2 27.0 ABG O2 Saturation 99.3 H ABG Base Excess -4.2 L ABG Hemoglobin ABG Carboxyhemoglobin POC ABG HHb (Measured) ABG Methemoglobin Candido Test Na ABG Potassium 5.2 A-a O2 Difference 439.0 Respiratory Index 3.6 Hgb O2 Saturation Glucose 308 H Lactate 1.0 Vent Mode Prvc Mechanical Rate 20 FiO2 90.0 Tidal Volume 400 PEEP 3 Crit Value Called To Crit Value Called By Crit Value Read Back Blood Gas Notified Time Sodium 129 L 132.0 Potassium 6.1 H Chloride 97 L 101.0 Carbon Dioxide 22 Anion Gap 17 BUN 114 H* Creatinine 5.1 H Est GFR ( Amer) 10 Est GFR (Non-Af Amer) 8 POC Glucose (mg/dL) 309 H Random Glucose 204 H Calcium 7.7 L Phosphorus Magnesium Total Bilirubin AST ALT Alkaline Phosphatase Total Protein Albumin Globulin Albumin/Globulin Ratio Arterial Blood Potassium 5.2 Blood Type Antibody Screen 07/06/18 07/06/18 07/06/18 05:35 05:37 05:46 WBC 16.2 H RBC 2.55 L Hgb 7.1 L Hct 22.1 L MCV 86.8 MCH 27.9 MCHC 32.1 L RDW 17.7 H Plt Count 138 MPV 11.6 Neut % (Auto) 90.9 H Lymph % (Auto) 1.4 L Mchenry % (Auto) 6.0 Eos % (Auto) 0.4 Baso % (Auto) 1.3 Neut # (Auto) 14.7 H Lymph # (Auto) 0.2 L Mchenry # (Auto) 1.0 H Eos # (Auto) 0.1 Baso # (Auto) 0.2 Neutrophils % (Manual) Lymphocytes % (Manual) Monocytes % (Manual) Eosinophils % (Manual) Platelet Estimate Large Platelets Hypochromasia (manual) Poikilocytosis (manual Basophilic Stippling Anisocytosis (manual) Tear Drop Cells Ovalocytes [place] Cells PT INR APTT Puncture Site pCO2 pO2 HCO3 ABG pH ABG Total CO2 ABG O2 Saturation ABG Base Excess ABG Hemoglobin ABG Carboxyhemoglobin POC ABG HHb (Measured) ABG Methemoglobin Candido Test ABG Potassium A-a O2 Difference Respiratory Index Hgb O2 Saturation Glucose Lactate Vent Mode Mechanical Rate FiO2 Tidal Volume PEEP Crit Value Called To Crit Value Called By Crit Value Read Back Blood Gas Notified Time Sodium 133 Potassium 5.4 H Chloride 95 L Carbon Dioxide 25 Anion Gap 17 BUN 111 H* Creatinine 4.9 H Est GFR ( Amer) 10 Est GFR (Non-Af Amer) 8 POC Glucose (mg/dL) Random Glucose 293 H Calcium 7.5 L Phosphorus 7.6 H Magnesium 2.4 H Total Bilirubin 0.6 AST 44 H ALT 37 Alkaline Phosphatase 158 H Total Protein 5.5 L Albumin 2.8 L Globulin 2.7 Albumin/Globulin Ratio 1.0 Arterial Blood Potassium Blood Type A POSITIVE Antibody Screen Negative Assessment & Plan (1) Acute respiratory failure with hypoxia Status: Acute (2) CHF exacerbation Status: Acute (3) COPD exacerbation Status: Acute (4) Cardiomyopathy Status: Acute (5) Pneumonia Status: Acute Attending/Attestation - Attestation I have personally seen and examined this patient.: Yes I have fully participated in the care of the patient.: Yes I have reviewed all pertinent clinical information: Yes Notes (Text): Patient seen and examined. patient was transferred to intensive care unit for hypotension and shortness of breath after family rescended DNR/DNI. patient very lethargic and not responding to any verbal command. on 07/02/2018 I had extensive discussion with the family about patient condition and need for intubation and other resuscitative measures and also consulted ICU for possible transfer which family refused and signed DNR/DNI. Patient on arrival to intensive care unit was immediately intubated and placed on ventilatory support. Copious thick secretions through the ET tube suctioned out. Chest x-ray done post intubation showed right-sided pneumothorax . Chest was immediately placed with reexpansion of the lung. triple lumen catheter inserted and right subclavian vein without any complication. Patient was placed on 100% FiO2 on IV antibiotics and dobutrex labs were drawn, ABG and chest x-ray was ordered and was endorsed to night fashion editor discussed with family at length with the prognosis
[2018-07-05] MEDS ORDERED: Etomidate 20 mg/10ml Inj IV ONE (18:22)
[2018-07-05] MEDS ORDERED: Albuterol-Ipratrop 3 mg / 0.5 (3 ml) UD INH STA (18:32)
[2018-07-05] MEDS ORDERED: Succinylcholine Chloride 20 mg/ml Syr (5 ml) IV ONE (18:35)
[2018-07-05] MEDS ORDERED: Dexmedetomidine Hydrochloride 200 MCG in Sodium Chloride 0.9% 48 ML IV PRN (18:35)
[2018-07-05] MEDS ORDERED: Sodium Chloride 0.9% 1,000 ML IV ONE ×2 (18:40→23:42)
[2018-07-05] MEDS ORDERED: Acetylcysteine 20% Inhal Soln (4ml) INH STA (18:45)
[2018-07-05] MEDS ORDERED: Acetylcysteine 20% Inhal Soln (4ml) ONE (18:48)
[2018-07-05] MEDS: Dexmedetomidine Hydrochloride 200 MCG in Sodium Chloride 0.9% 48 ML IV PRN (19:30)
[2018-07-05 20:58] LABS: BASO # 0.1 K/uL (0.0-0.2); BASO % 0.3 % (0.0-2.0); EOS % 0.2 % (0.0-4.0); HEMOGLOBIN 7.4 g/dL (11.0-16.0); LYMPH # 0.2 K/uL (1.0-4.3); LYMPH % 0.8 % (20.0-40.0); MEAN CELL VOLUME 87.4 fL (81.0-99.0); MEAN CORPUSCULAR HEMOGLOBIN 27.4 pg (27.0-31.0); MEAN CORPUSCULAR HGB CONC 31.3 g/dL (33.0-37.0); MEAN PLATELET VOLUME 10.6 fL (7.2-11.7); MONO # 1.6 K/uL (0.0-0.8); MONO % 7.4 % (0.0-10.0); NEUT # 19.7 K/uL (1.8-7.0); NEUT % 91.3 % (50.0-75.0); NRBC % 0.4 % (0.0-2.0); PLATELET COUNT 150 K/uL (130-400); RBC 2.71 Mil/uL (3.80-5.20); RED CELL DISTRIBUTION WIDTH 17.4 % (11.5-14.5)
[2018-07-05 21:00] LABS: WHITE BLOOD COUNT 21.6 K/uL (4.8-10.8)
[2018-07-05 21:11] LABS: ABG ALLEN TEST NEG; ARTERIAL BLOOD GAS HCO3 14.9 mmol/L (21-28); ARTERIAL BLOOD GAS O2 SAT 88.8 % (95-98); ARTERIAL BLOOD GAS PCO2 71 mm/Hg (35-45); ARTERIAL BLOOD GAS PH 7.05 (7.35-7.45); ARTERIAL BLOOD GAS PO2 53 mm/Hg (80-100); ARTERIAL BLOOD GAS TCO2 21.8 mmol/L (22-28)
[2018-07-05 21:13] LABS: INR 1.3
[2018-07-05 21:18] LABS: ALB/GLOB RATIO 1.1 (1.0-2.1); ALBUMIN 3.1 g/dL (3.5-5.0); CALCIUM 7.8 mg/dl (8.6-10.4)
[2018-07-05 21:33] LABS: ANISOCYTOSIS SLIGHT; EOSINOPHIL 2 % (0-4); LYMPHOCYTE 1 % (20-40); MONOCYTE 8 % (0-10); NEUTROPHIL 89 % (50-75); PLATELET ESTIMATE NORMAL (NORMAL); TOTAL CELLS COUNTED 100
[2018-07-05 21:34] LABS: BURR CELLS SLIGHT; HYPOCHROMIC SLIGHT; LARGE PLATELETS PRESENT; OVALOCYTES SLIGHT; POIKILOCYTOSIS SLIGHT; TEARDROP CELLS SLIGHT
[2018-07-05] MEDS ORDERED: Sodium Bicarbonate (8.4%) 50 Meq Syringe IVP ONE (21:44)
[2018-07-05] MEDS ORDERED: (Novolin R) Insulin Human Regular 100 units/ml vial IVP ONE (21:44)
[2018-07-05] MEDS ORDERED: Dextrose 50% SYRINGE Inj (50 ml) IV STA (21:44)
[2018-07-05] MEDS ORDERED: Sod Polystyrene Sulf 15 gm/60 ml Susp PR ONE (21:56)
--- NOTE | 2018-07-05 22:11 | CP.PCM.PN ---
Subjective - Date & Time of Evaluation Date of Evaluation: 07/05/18 Time of Evaluation: 22:11 - Subjective Subjective: CHIEF COMPLAINTS TODAY : events noted, Patient transferred to ICU,due to respiratory distress Patient presently intubated. s/p pigtail chest tube catheter between ribs 3 and 4 right-sided. s/p triple lumen catheter right-sided neck. ROS. ( on observation only ) HEENT : N. Resp : No cough, wheezing ,pleuritic CP ,or hemoptysis +vr RT -PIGTAIL CATHETER RIGHT CHEST WALL. Cardio : No anginal CP, PND, orthopnea, palpitation GI : No abd.pain, n/v ,diarrhea or GI bleeding . [employer] : No headache, vertigo, focal deficit. Musculoskel : No joint swelling , Derm : No rash Psych : Normal affect. Ext : No swelling ,calf pain PE. Pt. INTUBATED,ON VENTILATOR SEDATED V.S As noted in the chart Head ,ear nose,throat and eyes : Normal. Neck : Supple with normal carotids. Lungs: DECREASED BREATH SOUNDS RIGHT SIDE. vr RT -PIGTAIL CATHETER RIGHT CHEST WALL. Heart : S1 & S2 normal with S4. No murmur. Abd : Soft non tender with normal bowel sounds. Neuro : Moves all ext. with no localized deficit.(sedated ) Ext : No edema with intact pulses.Non tender calves Derm : No rashes or decubitus ulcer. LABS/RADIOLOGY: reviewed. WBC 21.6 H/H 7.4/23.7. creat 4.9/bun 112 Objective - Vital Signs/Intake and Output Vital Signs (last 24 hours): Temp Pulse Resp BP Pulse Ox 98 F 95 H 22 93/73 L 94 L 07/05/18 15:39 07/05/18 21:41 07/05/18 21:41 07/05/18 21:41 07/05/18 21:41 Intake and Output: 07/05/18 07/06/18 18:59 06:59 Intake Total 400 6 Output Total 10 Balance 390 6 - Medications Medications: Current Medications Albuterol Sulfate (Albuterol 0.042% Inhal Bell (1.25mg/3ml) Ud) 1.25 mg INH RQ2 PRN PRN Reason: Wheezing Albuterol/Ipratropium (Duoneb 3 Mg/0.5 Mg (3 Ml) Ud) 3 ml INH RQ6 JONNA Last Admin: 07/05/18 13:47 Dose: 3 ml Aspirin (Ecotrin) 325 mg PO DAILY JONNA Last Admin: 07/05/18 10:02 Dose: Not Given Ergocalciferol (Drisdol 50,000 Intl Units Cap) 1 cap PO QWK JONNA Last Admin: 06/30/18 09:38 Dose: 1 cap Furosemide (Lasix) 20 mg IVP DAILY [facility] Last Admin: 07/05/18 10:01 Dose: Not Given Cefepime HCl 0.5 gm/ Dextrose 50 mls @ 100 mls/hr IVPB Q24H JONNA; Protocol Last Admin: 07/05/18 10:01 Dose: 100 mls/hr Linezolid (Zyvox 600mg/300ml D5w) 600 mg in 300 mls @ 200 mls/hr IVPB Q12H JONNA; Protocol Last Admin: 07/05/18 13:04 Dose: 200 mls/hr Dobutamine HCl/Dextrose (Dobutamine/Dextrose 5% 500mg/250ml) 500 mg in 250 mls @ 7.076 mls/hr IV .Q24H JONNA; Protocol Last Admin: 07/05/18 15:30 Dose: Not Given Dexmedetomidine HCl 200 mcg/ (Sodium Chloride) 50 mls @ 2.34 mls/hr IV TITR PRN; Protocol PRN Reason: Sedation Last Titration: 07/05/18 21:49 Dose: 0.4 mcg/kg/hr, 4.7 mls/hr Norepinephrine Bitartrate 4 mg (/ Sodium Chloride) 254 mls @ 15.24 mls/hr IV .[id number] PRN; Protocol PRN Reason: TITRATE PER MD ORDER Last Admin: 07/05/18 21:41 Dose: 3.93 mcg/min, 15 mls/hr Insulin Human Regular (Novolin R) 0 unit SC ACHS JONNA; Protocol Last Admin: 07/05/18 17:40 Dose: Not Given Metoprolol Tartrate (Lopressor) 25 mg PO BID [facility] Last Admin: 07/05/18 17:39 Dose: Not Given Montelukast Sodium (Singulair) 10 mg PO DAILY [facility] Last Admin: 07/05/18 10:03 Dose: Not Given Morphine Sulfate (Morphine) 2 mg IVP Q4 PRN PRN Reason: Anxiety Last Admin: 07/05/18 13:16 Dose: 2 mg Ranolazine (Ranexa) 500 mg PO BID [facility] Last Admin: 07/05/18 17:41 Dose: Not Given Repaglinide (Prandin) 2 mg PO DAILY [facility] Last Admin: 07/05/18 10:00 Dose: Not Given Roflumilast (Daliresp) 500 mcg PO DAILY [facility] Last Admin: 07/01/18 10:27 Dose: 500 mcg Rosuvastatin Calcium (Crestor) 20 mg PO HS [facility] Last Admin: 07/05/18 21:40 Dose: Not Given Sacubitril/Valsartan (Entresto 49 Mg-51 Mg) 1 tab PO BID [facility] Last Admin: 07/05/18 17:42 Dose: Not Given - Labs Labs: 07/05/18 20:53 07/05/18 20:53 PT 14.0 SECONDS (9.7-12.2) H 07/05/18 20:53 INR 1.3 07/05/18 20:53 APTT 30 SECONDS (21-34) 07/05/18 20:53 Assessment and Plan (1) Acute respiratory failure with hypoxia Status: Acute (2) Chr obstructive pulmonary disease w/ acute lower respiratory infxn Status: Acute (3) CHF exacerbation Status: Acute (4) Cardiomyopathy Status: Acute (5) DM type 2 (diabetes mellitus, type 2) Status: Acute (6) CAD (coronary artery disease) Status: Acute (7) Anemia Status: Acute (8) Ischemic cardiomyopathy Status: Acute (9) Acute kidney failure Assessment & Plan: SEC TO HYPOTENSION/SEPSIS/DRUGS Status: Acute - Assessment and Plan (Free Text) Plan: CONTINUE IV ABX IV CEFEPIME. CONTINUE IV V ZYVOX 600 MG IV Q [id number]/18 PT HAS RT.PTX, RT CT IN PLACE PER PULMONARY MONITOR H/H. CONTINUE SUPPORTIVE CARE. F/U CXR PER PULMONARY. PROGNOSIS GUARDED. PT DNR/DNI. ( recinded )
[2018-07-05 22:25] LABS: ABG ALLEN TEST POS; ARTERIAL BLOOD GAS HCO3 20.4 mmol/L (21-28); ARTERIAL BLOOD GAS HEMOGLOBIN 10.9 g/dL (11.7-17.4); ARTERIAL BLOOD GAS O2 SAT 96.1 % (95-98); ARTERIAL BLOOD GAS PCO2 60 mm/Hg (35-45); ARTERIAL BLOOD GAS PH 7.19 (7.35-7.45); ARTERIAL BLOOD GAS PO2 90 mm/Hg (80-100); ARTERIAL BLOOD GAS TCO2 24.7 mmol/L (22-28)
--- NOTE | 2018-07-05 23:45 | PCM.PROC ---
Procedures Attestation:: I certify that I have explained the specified Operation(s) or Procedure(s), risks, benefits and reasonable alternatives to the Patient and/or other person responsible. The opportunity was given to ask questions and all questions answered - Chest Tube Chest Tube Location: Mid-Axillary Right Size of Tube (cm): 10 Chest Tube Procedure: Chlorhexidine Tube Sutured to Skin: Yes Sterile Dressing Applied: Yes Post Procedure: sutured to skin, sterile dressing applied, air occlusive dressing [place] of Air Real: Yes Tube Drainage: fluid Amount of Initial Drainage: 10 Post Procedure CXR?: Yes Patient Tolerated Procedure: Yes Progress: Right 8Fr chest tube dislodged. CXR noted with reaccumulation of right Pneumothorax Placed right sided 8Fr Chest tube without any immediate complications.
[2018-07-06] MEDS: Linezolid 600 mg in D5W 300 ml 600 MG/300 ML BAG IVPB SCH ×2 (00:26→13:10)
[2018-07-06] MEDS: (Novolin R) Insulin Human Regular 100 units/ml vial SC SCH ×4 (00:40→17:38)
[2018-07-06] MEDS: Dexmedetomidine Hydrochloride 200 MCG in Sodium Chloride 0.9% 48 ML IV PRN ×6 (01:01→17:37)
[2018-07-06 01:12] LABS: CALCIUM 7.7 mg/dl (8.6-10.4)
[2018-07-06 01:19] LABS: ARTERIAL BLOOD GAS HCO3 18.5 mmol/L (21-28); ARTERIAL BLOOD GAS HEMOGLOBIN 7.3 g/dL (11.7-17.4); ARTERIAL BLOOD GAS O2 SAT 99.3 % (95-98); ARTERIAL BLOOD GAS PCO2 64 mm/Hg (35-45); ARTERIAL BLOOD GAS PH 7.12 (7.35-7.45); ARTERIAL BLOOD GAS PO2 147 mm/Hg (80-100); ARTERIAL BLOOD GAS TCO2 22.8 mmol/L (22-28)
[2018-07-06] MEDS ORDERED: (Novolin R) Insulin Human Regular 100 units/ml vial IVP ONE ×2 (01:19→09:30)
[2018-07-06] MEDS ORDERED: Dextrose 50% SYRINGE Inj (50 ml) IV STA (01:19)
[2018-07-06] MEDS ORDERED: Sod Polystyrene Sulf 15 gm/60 ml Susp NG ONE (01:19)
[2018-07-06] MEDS ORDERED: Sodium Bicarbonate (8.4%) 50 Meq Syringe IVP ONE (01:25)
[2018-07-06] MEDS: Albuterol-Ipratrop 3 mg / 0.5 (3 ml) UD INH SCH ×3 (01:36→13:56)
[2018-07-06] MEDS: DOBUTamine 500mg/250ml D5W 500 MG/250 ML BAG IV SCH ×2 (02:01→15:25)
[2018-07-06 05:47] LABS: BASO # 0.2 K/uL (0.0-0.2); BASO % 1.3 % (0.0-2.0); EOS # 0.1 K/uL (0.0-0.7); EOS % 0.4 % (0.0-4.0); HEMOGLOBIN 7.1 g/dL (11.0-16.0); LYMPH # 0.2 K/uL (1.0-4.3); LYMPH % 1.4 % (20.0-40.0); MEAN CELL VOLUME 86.8 fL (81.0-99.0); MEAN CORPUSCULAR HEMOGLOBIN 27.9 pg (27.0-31.0); MEAN CORPUSCULAR HGB CONC 32.1 g/dL (33.0-37.0); MEAN PLATELET VOLUME 11.6 fL (7.2-11.7); NEUT # 14.7 K/uL (1.8-7.0); NEUT % 90.9 % (50.0-75.0); NRBC % 0.6 % (0.0-2.0); PLATELET COUNT 138 K/uL (130-400); RBC 2.55 Mil/uL (3.80-5.20); RED CELL DISTRIBUTION WIDTH 17.7 % (11.5-14.5); WHITE BLOOD COUNT 16.2 K/uL (4.8-10.8)
[2018-07-06 05:56] LABS: ARTERIAL BLOOD GAS HCO3 21.7 mmol/L (21-28); ARTERIAL BLOOD GAS O2 SAT 99.3 % (95-98); ARTERIAL BLOOD GAS PCO2 64 mm/Hg (35-45); ARTERIAL BLOOD GAS PO2 123 mm/Hg (80-100)
[2018-07-06 06:05] LABS: ALBUMIN 2.8 g/dL (3.5-5.0)
[2018-07-06 06:14] LABS: CALCIUM 7.5 mg/dl (8.6-10.4)
[2018-07-06 08:30] LABS: BANDS 1 % (0-2); EOSINOPHIL 1 % (0-4); LYMPHOCYTE 1 % (20-40); MONOCYTE 2 % (0-10); MYELOCYTE 2 % (0-0); NEUTROPHIL 93 % (50-75); NUCLEATED RED BLOOD CELL 1 % (0-0); PLATELET ESTIMATE NORMAL (NORMAL); TOTAL CELLS COUNTED 100
[2018-07-06 08:31] LABS: ANISOCYTOSIS SLIGHT; HYPOCHROMIC SLIGHT; POIKILOCYTOSIS SLIGHT
[2018-07-06 08:32] LABS: BURR CELLS SLIGHT; LARGE PLATELETS PRESENT; OVALOCYTES SLIGHT; TEARDROP CELLS SLIGHT
--- NOTE | 2018-07-06 08:47 | RAD ---
Date of service: 07/05/2018 HISTORY: ET tube placement COMPARISON: 07/04/2018 FINDINGS: LUNGS: Extensive opacity of right lung. This may be due in part to atelectasis associated with pneumothorax. There is extensive opacity in the mid and lower left lung. PLEURA: Large right pneumothorax. Small left pneumothorax. Pneumomediastinum noted. These are all new finding since the prior examination. CARDIOVASCULAR: Normal heart size. AICD noted. ET tube noted with its tip situated in grossly appropriate position, although the tracheal kesha cannot be adequately visualized on this examination. Nasogastric tube extends to left upper quadrant of abdomen. No pulmonary vascular congestion. OSSEOUS STRUCTURES: No significant abnormalities. VISUALIZED UPPER ABDOMEN: Normal. OTHER FINDINGS: Extensive subcutaneous emphysema about the neck and chest, right greater than left. IMPRESSION: Large right pneumothorax and small left pneumothorax. Pneumomediastinum. Endotracheal tube and nasogastric tube. AICD. Extensive subcutaneous emphysema.
--- NOTE | 2018-07-06 08:48 | CP.CCUPN ---
<Emily Ramirez - Last Filed: 07/06/18 11:01> CCU Subjective - Physician Review Subjective (Free Text): 07/06/18 10:51 ICU Progress Note for Dr. Malik Patient seen and examined at bedside this morning. Patient resting in bed comfortably. She is still not responsive. Due to patient condition, ROS unable to be obtained. Per RN urine output poor last night at 20cc overnight. Kayexalate given due to hyperkalemia, AM labs still 5.4. s/p Kayexalate 30g NG and 30g KS last night and this morning before the 5.4 reading. Novolin 6U given this morning at 6:24am. Patient has not had BM. 07/06/18 10:52 CCU Objective - Vital Signs / Intake & Output Vital Signs (Last 4 hours): Vital Signs Temp Pulse Resp BP Pulse Ox 07/06/18 08:46 97.3 F L 107 H 24 124/53 L 07/06/18 06:50 107 H 24 100 07/06/18 06:40 107 H 24 100 07/06/18 06:33 107 H 24 126/53 L 99 07/06/18 06:30 107 H 24 100 07/06/18 06:20 107 H 24 100 07/06/18 06:10 104 H 25 H 100 07/06/18 06:03 104 H 24 131/52 L 100 07/06/18 06:00 104 H 24 100 07/06/18 05:50 104 H 20 100 07/06/18 05:40 103 H 21 100 07/06/18 05:34 103 H 111/48 L 98 07/06/18 05:30 101 H 96 07/06/18 05:20 103 H 24 100 07/06/18 05:10 104 H 20 100 07/06/18 05:03 105 H 21 122/43 L 07/06/18 05:00 104 H 20 100 07/06/18 04:50 105 H 20 100 Intake and Output (Last 8hrs): Intake & Output 07/05/18 07/06/18 07/06/18 22:59 06:59 14:59 Intake Total 469.7 1222.0 155 Output Total 10 0 Balance 459.7 1222.0 155 Weight 115 lb Intake: IV 23 171 155 Intake, IV Amount 46.7 1051.0 rt ij tlc distal port 700 rt ij tlc middle port 21 56 rt ij tlc middle portt y 15 172.5 rt ij tlc proximal port 10.7 122.5 Oral 0 TPN/PPN 400 Blood Product 0 Red Blood Cells Cpd As1 0 Lr Unit [id number] Output: Urine 10 0 Urethral (Howard) 10 0 - Physical Exam Physical Exam Limitations: Positive for: Other (Patient intubated and not responsive. Eyes did not open.) Head: Positive for: Atraumatic, Normocephalic Pupils: Positive for: PERRL Conjunctiva: Positive for: Normal Respiratory/Chest: Positive for: Accessory Muscle Use, Wheezes, Decreased Breath Sounds (right side decreased breath sounds), Other. Negative for: Clear to Auscultation, Good Air Exchange Cardiovascular: Positive for: Murmurs (holosystolic) Abdomen: Positive for: Normal Bowel Sounds. Negative for: Tenderness, Distention, Rebound, Guarding Upper Extremity: Positive for: Capillary Refill < 2s Neurological: Negative for: GCS=15 Skin: Positive for: Other (pigtail right chest midaxillary c/d/i, central line by right SCM c/d/i ) Psychiatric: Negative for: Alert, Oriented x 3 - Medications Active Medications: Active Medications Generic Name Dose Route Start Last Admin Trade Name Freq PRN Reason Stop Dose Admin Albuterol Sulfate 1.25 mg 07/01/18 21:02 Albuterol 0.042% Inhal Bell (1.25mg/3ml) Ud INH RQ2 PRN Wheezing Albuterol/Ipratropium 3 ml 07/02/18 02:00 07/06/18 07:47 Duoneb 3 Mg/0.5 Mg (3 Ml) Ud INH 3 ml RQ6 JONNA Administration Calcium Acetate 667 mg 07/06/18 08:00 Phoslo PO BIDCC JONNA Ergocalciferol 1 cap 06/30/18 10:00 06/30/18 09:38 Drisdol 50,000 Intl Units Cap PO 1 cap QWK JONNA Administration Furosemide 20 mg 06/26/18 13:13 07/05/18 10:01 Lasix IVP Not Given DAILY JONNA Cefepime HCl 0.5 gm/ Dextrose 50 mls @ 100 mls/hr 07/01/18 10:00 07/05/18 10:01 IVPB 100 mls/hr Q24H JONNA Administration Protocol Linezolid 600 mg in 300 mls @ 200 mls/hr 07/03/18 01:00 07/06/18 00:26 Zyvox 600mg/300ml D5w IVPB 200 mls/hr Q12H JONNA Administration Protocol Dobutamine HCl/Dextrose 500 mg in 250 mls @ 7.076 mls/hr 07/03/18 15:10 07/06/18 02:01 Dobutamine/Dextrose 5% 500mg/250ml IV 7.076 mls/hr .Q24H JONNA Administration Protocol 5 MCG/KG/MIN Dexmedetomidine HCl 200 mcg/ 50 mls @ 2.34 mls/hr 07/05/18 18:39 07/06/18 07:24 Sodium Chloride IV 1.49 mcg/kg/hr TITR PRN 17.5 mls/hr Sedation Administration Protocol 0.2 MCG/KG/HR Norepinephrine Bitartrate 4 mg 254 mls @ 15.24 mls/hr 07/05/18 20:32 07/06/18 07:00 / Sodium Chloride IV 4.93 mcg/min .[id number] PRN 18.78 mls/hr TITRATE PER MD ORDER Titration Protocol 4 MCG/MIN Sodium Bicarbonate 100 meq/ 1,100 mls @ 100 mls/hr 07/06/18 01:30 07/06/18 02:25 Sodium Chloride IV 100 mls/hr .Q11H JONNA Administration Insulin Human Regular 0 unit 07/06/18 00:00 07/06/18 06:24 Novolin R SC 6 u Q6H JONNA Administration Protocol Metoprolol Tartrate 25 mg 06/24/18 10:00 07/05/18 17:39 Lopressor PO Not Given BID JONNA Montelukast Sodium 10 mg 06/24/18 10:00 07/05/18 10:03 Singulair PO Not Given DAILY JONNA Morphine Sulfate 2 mg 07/02/18 15:58 07/05/18 13:16 Morphine IVP 2 mg Q4 PRN Administration Anxiety Pantoprazole Sodium 40 mg 07/06/18 10:00 Protonix Inj IVP DAILY JONNA Ranolazine 500 mg 06/24/18 10:00 07/05/18 17:41 Ranexa PO Not Given BID JONNA Repaglinide 2 mg 06/24/18 10:00 07/05/18 10:00 Prandin PO Not Given DAILY JONNA Roflumilast 500 mcg 06/24/18 10:00 07/01/18 10:27 Daliresp PO 500 mcg DAILY JONNA Administration Rosuvastatin Calcium 20 mg 06/23/18 22:00 07/05/18 21:40 Crestor PO Not Given HS JONNA Sacubitril/Valsartan 1 tab 06/24/18 18:00 07/05/18 17:42 Entresto 49 Mg-51 Mg PO Not Given BID JONNA - Patient Studies Lab Studies: Lab Studies 07/06/18 07/06/18 07/06/18 Range/Units 05:46 05:37 05:35 WBC 16.2 H (4.8-10.8) K/uL RBC 2.55 L (3.80-5.20) Mil/uL Hgb 7.1 L (11.0-16.0) g/dL Hct 22.1 L (34.0-47.0) % MCV 86.8 (81.0-99.0) fL MCH 27.9 (27.0-31.0) pg MCHC 32.1 L (33.0-37.0) g/dL RDW 17.7 H (11.5-14.5) % Plt Count 138 (130-400) K/uL MPV 11.6 (7.2-11.7) fL Neut % (Auto) 90.9 H (50.0-75.0) % Lymph % (Auto) 1.4 L (20.0-40.0) % [place] % (Auto) 6.0 (0.0-10.0) % Eos % (Auto) 0.4 (0.0-4.0) % Baso % (Auto) 1.3 (0.0-2.0) % Neut # (Auto) 14.7 H (1.8-7.0) K/uL Lymph # (Auto) 0.2 L (1.0-4.3) K/uL [place] # (Auto) 1.0 H (0.0-0.8) K/uL Eos # (Auto) 0.1 (0.0-0.7) K/uL Baso # (Auto) 0.2 (0.0-0.2) K/uL Neutrophils % (Manual) 93 H (50-75) % Band Neutrophils % 1 (0-2) % Lymphocytes % (Manual) 1 L (20-40) % Monocytes % (Manual) 2 (0-10) % Eosinophils % (Manual) 1 (0-4) % Myelocytes % 2 H (0-0) % Nucleated RBC % 1 H (0-0) % Platelet Estimate Normal (NORMAL) Large Platelets Present Hypochromasia (manual) Slight Poikilocytosis (manual Slight Basophilic Stippling Slight Anisocytosis (manual) Slight Tear Drop Cells Slight Ovalocytes Slight Chyna Cells Slight PT (9.7-12.2) SECONDS INR APTT (21-34) SECONDS Puncture Site pCO2 (35-45) mm/Hg pO2 (80-100) mm/Hg HCO3 (21-28) mmol/L ABG pH (7.35-7.45) ABG Total CO2 (22-28) mmol/L ABG O2 Saturation (95-98) % ABG Base Excess (-2.0-3.0) mmol/L ABG Hemoglobin (11.7-17.4) g/dL ABG Carboxyhemoglobin (0.5-1.5) % POC ABG HHb (Measured) (0.0-5.0) % ABG Methemoglobin (0.0-3.0) % Candido Test ABG Potassium (3.6-5.2) mmol/L A-a O2 Difference mm/Hg Respiratory Index Hgb O2 Saturation (95.0-98.0) % Glucose (65-105) mg/dl Lactate (0.7-2.1) mmol/L Vent Mode Mechanical Rate FiO2 % Tidal Volume PEEP Crit Value Called To Crit Value Called By Crit Value Read Back Blood Gas Notified Time Sodium 133 (132-148) mmol/L Potassium 5.4 H (3.6-5.2) mmol/L Chloride 95 L (98-107) mmol/L Carbon Dioxide 25 (22-30) mmol/L Anion Gap 17 (10-20) BUN 111 H* (7-17) mg/dL Creatinine 4.9 H (0.7-1.2) mg/dL Est GFR ( Amer) 10 Est GFR (Non-Af Amer) 8 POC Glucose (mg/dL) (65-110) mg/dL Random Glucose 293 H (65-105) mg/dL Calcium 7.5 L (8.6-10.4) mg/dl Phosphorus 7.6 H (2.5-4.5) mg/dL Magnesium 2.4 H (1.6-2.3) mg/dL Total Bilirubin 0.6 (0.2-1.3) mg/dL AST 44 H (14-36) U/L ALT 37 (9-52) U/L Alkaline Phosphatase 158 H (38-126) U/L Total Protein 5.5 L (6.3-8.3) g/dL Albumin 2.8 L (3.5-5.0) g/dL Globulin 2.7 (2.2-3.9) gm/dL Albumin/Globulin Ratio 1.0 (1.0-2.1) Arterial Blood Potassium (3.6-5.2) mmol/L Blood Type A POSITIVE Antibody Screen Negative 07/06/18 07/06/18 07/06/18 Range/Units 05:21 05:06 00:37 WBC (4.8-10.8) K/uL RBC (3.80-5.20) Mil/uL Hgb (11.0-16.0) g/dL Hct (34.0-47.0) % MCV (81.0-99.0) fL MCH (27.0-31.0) pg MCHC (33.0-37.0) g/dL RDW (11.5-14.5) % Plt Count (130-400) K/uL MPV (7.2-11.7) fL Neut % (Auto) (50.0-75.0) % Lymph % (Auto) (20.0-40.0) % [place] % (Auto) (0.0-10.0) % Eos % (Auto) (0.0-4.0) % Baso % (Auto) (0.0-2.0) % Neut # (Auto) (1.8-7.0) K/uL Lymph # (Auto) (1.0-4.3) K/uL [place] # (Auto) (0.0-0.8) K/uL Eos # (Auto) (0.0-0.7) K/uL Baso # (Auto) (0.0-0.2) K/uL Neutrophils % (Manual) (50-75) % Band Neutrophils % (0-2) % Lymphocytes % (Manual) (20-40) % Monocytes % (Manual) (0-10) % Eosinophils % (Manual) (0-4) % Myelocytes % (0-0) % Nucleated RBC % (0-0) % Platelet Estimate (NORMAL) Large Platelets Hypochromasia (manual) Poikilocytosis (manual Basophilic Stippling Anisocytosis (manual) Tear Drop Cells Ovalocytes Chyna Cells PT (9.7-12.2) SECONDS INR APTT (21-34) SECONDS Puncture Site Rb pCO2 64 H (35-45) mm/Hg pO2 123 H (80-100) mm/Hg HCO3 21.7 (21-28) mmol/L ABG pH 7.20 L (7.35-7.45) ABG Total CO2 27.0 (22-28) mmol/L ABG O2 Saturation 99.3 H (95-98) % ABG Base Excess -4.2 L (-2.0-3.0) mmol/L ABG Hemoglobin (11.7-17.4) g/dL ABG Carboxyhemoglobin (0.5-1.5) % POC ABG HHb (Measured) (0.0-5.0) % ABG Methemoglobin (0.0-3.0) % Candido Test Na ABG Potassium 5.2 (3.6-5.2) mmol/L A-a O2 Difference 439.0 mm/Hg Respiratory Index 3.6 Hgb O2 Saturation (95.0-98.0) % Glucose 308 H (65-105) mg/dl Lactate 1.0 (0.7-2.1) mmol/L Vent Mode Prvc Mechanical Rate 20 FiO2 90.0 % Tidal Volume 400 PEEP 3 Crit Value Called To Crit Value Called By Crit Value Read Back Blood Gas Notified Time Sodium 132.0 129 L (132-148) mmol/L Potassium 6.1 H (3.6-5.2) mmol/L Chloride 101.0 97 L (98-107) mmol/L Carbon Dioxide 22 (22-30) mmol/L Anion Gap 17 (10-20) BUN 114 H* (7-17) mg/dL Creatinine 5.1 H (0.7-1.2) mg/dL Est GFR ( Amer) 10 Est GFR (Non-Af Amer) 8 POC Glucose (mg/dL) 309 H (65-110) mg/dL Random Glucose 204 H (65-105) mg/dL Calcium 7.7 L (8.6-10.4) mg/dl Phosphorus (2.5-4.5) mg/dL Magnesium (1.6-2.3) mg/dL Total Bilirubin (0.2-1.3) mg/dL AST (14-36) U/L ALT (9-52) U/L Alkaline Phosphatase (38-126) U/L Total Protein (6.3-8.3) g/dL Albumin (3.5-5.0) g/dL Globulin (2.2-3.9) gm/dL Albumin/Globulin Ratio (1.0-2.1) Arterial Blood Potassium 5.2 (3.6-5.2) mmol/L Blood Type Antibody Screen 07/05/18 07/05/18 07/05/18 Range/Units 23:58 22:05 21:00 WBC (4.8-10.8) K/uL RBC (3.80-5.20) Mil/uL Hgb (11.0-16.0) g/dL Hct (34.0-47.0) % MCV (81.0-99.0) fL MCH (27.0-31.0) pg MCHC (33.0-37.0) g/dL RDW (11.5-14.5) % Plt Count (130-400) K/uL MPV (7.2-11.7) fL Neut % (Auto) (50.0-75.0) % Lymph % (Auto) (20.0-40.0) % [place] % (Auto) (0.0-10.0) % Eos % (Auto) (0.0-4.0) % Baso % (Auto) (0.0-2.0) % Neut # (Auto) (1.8-7.0) K/uL Lymph # (Auto) (1.0-4.3) K/uL [place] # (Auto) (0.0-0.8) K/uL Eos # (Auto) (0.0-0.7) K/uL Baso # (Auto) (0.0-0.2) K/uL Neutrophils % (Manual) (50-75) % Band Neutrophils % (0-2) % Lymphocytes % (Manual) (20-40) % Monocytes % (Manual) (0-10) % Eosinophils % (Manual) (0-4) % Myelocytes % (0-0) % Nucleated RBC % (0-0) % Platelet Estimate (NORMAL) Large Platelets Hypochromasia (manual) Poikilocytosis (manual Basophilic Stippling Anisocytosis (manual) Tear Drop Cells Ovalocytes Chyna Cells PT (9.7-12.2) SECONDS INR APTT (21-34) SECONDS Puncture Site Rradial Lfem pCO2 60 H 71 H* (35-45) mm/Hg pO2 90 53 L (80-100) mm/Hg HCO3 20.4 L 14.9 L (21-28) mmol/L ABG pH 7.19 L* 7.05 L* (7.35-7.45) ABG Total CO2 24.7 21.8 L (22-28) mmol/L ABG O2 Saturation 96.1 88.8 L (95-98) % ABG Base Excess -5.8 L -11.9 L (-2.0-3.0) mmol/L ABG Hemoglobin 10.9 L (11.7-17.4) g/dL ABG Carboxyhemoglobin 0.6 (0.5-1.5) % POC ABG HHb (Measured) 3.9 (0.0-5.0) % ABG Methemoglobin 0.5 (0.0-3.0) % Candido Test Pos Neg ABG Potassium 6.5 H* (3.6-5.2) mmol/L A-a O2 Difference 192.0 571.0 mm/Hg Respiratory Index 2.1 10.8 Hgb O2 Saturation 95.0 (95.0-98.0) % Glucose 261 H (65-105) mg/dl Lactate 1.4 (0.7-2.1) mmol/L Vent Mode Prvc Mechanical Rate 12 FiO2 50.0 100.0 % Tidal Volume 360 PEEP 3 Crit Value Called To Dr. stefan aviles Crit Value Called By jon Ambriz rcp Crit Value Read Back Y Y Blood Gas Notified Time 2219 2111 Sodium 129.0 L (132-148) mmol/L Potassium (3.6-5.2) mmol/L Chloride 101.0 (98-107) mmol/L Carbon Dioxide (22-30) mmol/L Anion Gap (10-20) BUN (7-17) mg/dL Creatinine (0.7-1.2) mg/dL Est GFR ( Amer) Est GFR (Non-Af Amer) POC Glucose (mg/dL) 229 H (65-110) mg/dL Random Glucose (65-105) mg/dL Calcium (8.6-10.4) mg/dl Phosphorus (2.5-4.5) mg/dL Magnesium (1.6-2.3) mg/dL Total Bilirubin (0.2-1.3) mg/dL AST (14-36) U/L ALT (9-52) U/L Alkaline Phosphatase (38-126) U/L Total Protein (6.3-8.3) g/dL Albumin (3.5-5.0) g/dL Globulin (2.2-3.9) gm/dL Albumin/Globulin Ratio (1.0-2.1) Arterial Blood Potassium 6.5 H* (3.6-5.2) mmol/L Blood Type Antibody Screen 07/05/18 07/05/18 07/05/18 Range/Units 20:53 20:53 20:53 WBC 21.6 H D (4.8-10.8) K/uL RBC 2.71 L (3.80-5.20) Mil/uL Hgb 7.4 L (11.0-16.0) g/dL Hct 23.7 L (34.0-47.0) % MCV 87.4 (81.0-99.0) fL MCH 27.4 (27.0-31.0) pg MCHC 31.3 L (33.0-37.0) g/dL RDW 17.4 H (11.5-14.5) % Plt Count 150 (130-400) K/uL MPV 10.6 (7.2-11.7) fL Neut % (Auto) 91.3 H (50.0-75.0) % Lymph % (Auto) 0.8 L (20.0-40.0) % [place] % (Auto) 7.4 (0.0-10.0) % Eos % (Auto) 0.2 (0.0-4.0) % Baso % (Auto) 0.3 (0.0-2.0) % Neut # (Auto) 19.7 H (1.8-7.0) K/uL Lymph # (Auto) 0.2 L (1.0-4.3) K/uL [place] # (Auto) 1.6 H (0.0-0.8) K/uL Eos # (Auto) 0.0 (0.0-0.7) K/uL Baso # (Auto) 0.1 (0.0-0.2) K/uL Neutrophils % (Manual) 89 H (50-75) % Band Neutrophils % (0-2) % Lymphocytes % (Manual) 1 L (20-40) % Monocytes % (Manual) 8 (0-10) % Eosinophils % (Manual) 2 (0-4) % Myelocytes % (0-0) % Nucleated RBC % (0-0) % Platelet Estimate Normal (NORMAL) Large Platelets Present Hypochromasia (manual) Slight Poikilocytosis (manual Slight Basophilic Stippling Slight Anisocytosis (manual) Slight Tear Drop Cells Slight Ovalocytes Slight [place] Cells Slight PT 14.0 H (9.7-12.2) SECONDS INR 1.3 APTT 30 (21-34) SECONDS Puncture Site pCO2 (35-45) mm/Hg pO2 (80-100) mm/Hg HCO3 (21-28) mmol/L ABG pH (7.35-7.45) ABG Total CO2 (22-28) mmol/L ABG O2 Saturation (95-98) % ABG Base Excess (-2.0-3.0) mmol/L ABG Hemoglobin (11.7-17.4) g/dL ABG Carboxyhemoglobin (0.5-1.5) % POC ABG HHb (Measured) (0.0-5.0) % ABG Methemoglobin (0.0-3.0) % Candido Test ABG Potassium (3.6-5.2) mmol/L A-a O2 Difference mm/Hg Respiratory Index Hgb O2 Saturation (95.0-98.0) % Glucose (65-105) mg/dl Lactate (0.7-2.1) mmol/L Vent Mode Mechanical Rate FiO2 % Tidal Volume PEEP Crit Value Called To Crit Value Called By Crit Value Read Back Blood Gas Notified Time Sodium 128 L (132-148) mmol/L Potassium 6.6 H* D (3.6-5.2) mmol/L Chloride 97 L (98-107) mmol/L Carbon Dioxide 19 L (22-30) mmol/L Anion Gap 18 (10-20) BUN 112 H* D (7-17) mg/dL Creatinine 4.9 H (0.7-1.2) mg/dL Est GFR ( Amer) 10 Est GFR (Non-Af Amer) 8 POC Glucose (mg/dL) (65-110) mg/dL Random Glucose 245 H (65-105) mg/dL Calcium 7.8 L (8.6-10.4) mg/dl Phosphorus 8.3 H (2.5-4.5) mg/dL Magnesium 2.6 H (1.6-2.3) mg/dL Total Bilirubin 0.8 (0.2-1.3) mg/dL AST 55 H (14-36) U/L ALT 39 (9-52) U/L Alkaline Phosphatase 163 H (38-126) U/L Total Protein 5.9 L (6.3-8.3) g/dL Albumin 3.1 L (3.5-5.0) g/dL Globulin 2.8 (2.2-3.9) gm/dL Albumin/Globulin Ratio 1.1 (1.0-2.1) Arterial Blood Potassium (3.6-5.2) mmol/L Blood Type Antibody Screen 07/05/18 07/05/18 07/05/18 Range/Units 17:14 11:35 00:38 WBC (4.8-10.8) K/uL RBC (3.80-5.20) Mil/uL Hgb (11.0-16.0) g/dL Hct (34.0-47.0) % MCV (81.0-99.0) fL MCH (27.0-31.0) pg MCHC (33.0-37.0) g/dL RDW (11.5-14.5) % Plt Count (130-400) K/uL MPV (7.2-11.7) fL Neut % (Auto) (50.0-75.0) % Lymph % (Auto) (20.0-40.0) % [place] % (Auto) (0.0-10.0) % Eos % (Auto) (0.0-4.0) % Baso % (Auto) (0.0-2.0) % Neut # (Auto) (1.8-7.0) K/uL Lymph # (Auto) (1.0-4.3) K/uL [place] # (Auto) (0.0-0.8) K/uL Eos # (Auto) (0.0-0.7) K/uL Baso # (Auto) (0.0-0.2) K/uL Neutrophils % (Manual) (50-75) % Band Neutrophils % (0-2) % Lymphocytes % (Manual) (20-40) % Monocytes % (Manual) (0-10) % Eosinophils % (Manual) (0-4) % Myelocytes % (0-0) % Nucleated RBC % (0-0) % Platelet Estimate (NORMAL) Large Platelets Hypochromasia (manual) Poikilocytosis (manual Basophilic Stippling Anisocytosis (manual) Tear Drop Cells Ovalocytes [place] Cells PT (9.7-12.2) SECONDS INR APTT (21-34) SECONDS Puncture Site Rb pCO2 64 H (35-45) mm/Hg pO2 147 H (80-100) mm/Hg HCO3 18.5 L (21-28) mmol/L ABG pH 7.12 L* (7.35-7.45) ABG Total CO2 22.8 (22-28) mmol/L ABG O2 Saturation 99.3 H (95-98) % ABG Base Excess -8.2 L (-2.0-3.0) mmol/L ABG Hemoglobin 7.3 L (11.7-17.4) g/dL ABG Carboxyhemoglobin 1.8 H (0.5-1.5) % POC ABG HHb (Measured) 0.7 (0.0-5.0) % ABG Methemoglobin 1.4 (0.0-3.0) % Candido Test Na ABG Potassium (3.6-5.2) mmol/L A-a O2 Difference 486.0 mm/Hg Respiratory Index 3.3 Hgb O2 Saturation 96.2 (95.0-98.0) % Glucose (65-105) mg/dl Lactate (0.7-2.1) mmol/L Vent Mode Prvc Mechanical Rate 20 FiO2 100.0 % Tidal Volume 360 PEEP 3 Crit Value Called To Dr. aviles Crit Value Called By Cuong client service associate Crit Value Read Back Y Blood Gas Notified Time 119 Sodium (132-148) mmol/L Potassium (3.6-5.2) mmol/L Chloride (98-107) mmol/L Carbon Dioxide (22-30) mmol/L Anion Gap (10-20) BUN (7-17) mg/dL Creatinine (0.7-1.2) mg/dL Est GFR ( Amer) Est GFR (Non-Af Amer) POC Glucose (mg/dL) 283 H 350 H (65-110) mg/dL Random Glucose (65-105) mg/dL Calcium (8.6-10.4) mg/dl Phosphorus (2.5-4.5) mg/dL Magnesium (1.6-2.3) mg/dL Total Bilirubin (0.2-1.3) mg/dL AST (14-36) U/L ALT (9-52) U/L Alkaline Phosphatase (38-126) U/L Total Protein (6.3-8.3) g/dL Albumin (3.5-5.0) g/dL Globulin (2.2-3.9) gm/dL Albumin/Globulin Ratio (1.0-2.1) Arterial Blood Potassium (3.6-5.2) mmol/L Blood Type Antibody Screen Laboratory Results - last 24 hr 07/05/18 07/05/18 07/05/18 00:38 11:35 17:14 WBC RBC Hgb Hct MCV MCH MCHC RDW Plt Count MPV Neut % (Auto) Lymph % (Auto) [place] % (Auto) Eos % (Auto) Baso % (Auto) Neut # (Auto) Lymph # (Auto) [place] # (Auto) Eos # (Auto) Baso # (Auto) Neutrophils % (Manual) Band Neutrophils % Lymphocytes % (Manual) Monocytes % (Manual) Eosinophils % (Manual) Myelocytes % Nucleated RBC % Platelet Estimate Large Platelets Hypochromasia (manual) Poikilocytosis (manual Basophilic Stippling Anisocytosis (manual) Tear Drop Cells Ovalocytes Chyna Cells PT INR APTT Puncture Site Rb pCO2 64 H pO2 147 H HCO3 18.5 L ABG pH 7.12 L* ABG Total CO2 22.8 ABG O2 Saturation 99.3 H ABG Base Excess -8.2 L ABG Hemoglobin 7.3 L ABG Carboxyhemoglobin 1.8 H POC ABG HHb (Measured) 0.7 ABG Methemoglobin 1.4 Candido Test Na ABG Potassium A-a O2 Difference 486.0 Respiratory Index 3.3 Hgb O2 Saturation 96.2 Glucose Lactate Vent Mode Prvc Mechanical Rate 20 FiO2 100.0 Tidal Volume 360 PEEP 3 Crit Value Called To Dr. aviles Crit Value Called By Cuong client service associate Crit Value Read Back Y Blood Gas Notified Time 119 Sodium Potassium Chloride Carbon Dioxide Anion Gap BUN Creatinine Est GFR ( Amer) Est GFR (Non-Af Amer) POC Glucose (mg/dL) 350 H 283 H Random Glucose Calcium Phosphorus Magnesium Total Bilirubin AST ALT Alkaline Phosphatase Total Protein Albumin Globulin Albumin/Globulin Ratio Arterial Blood Potassium Blood Type Antibody Screen 07/05/18 07/05/18 07/05/18 20:53 20:53 20:53 WBC 21.6 H D RBC 2.71 L Hgb 7.4 L Hct 23.7 L MCV 87.4 MCH 27.4 MCHC 31.3 L RDW 17.4 H Plt Count 150 MPV 10.6 Neut % (Auto) 91.3 H Lymph % (Auto) 0.8 L [place] % (Auto) 7.4 Eos % (Auto) 0.2 Baso % (Auto) 0.3 Neut # (Auto) 19.7 H Lymph # (Auto) 0.2 L [place] # (Auto) 1.6 H Eos # (Auto) 0.0 Baso # (Auto) 0.1 Neutrophils % (Manual) 89 H Band Neutrophils % Lymphocytes % (Manual) 1 L Monocytes % (Manual) 8 Eosinophils % (Manual) 2 Myelocytes % Nucleated RBC % Platelet Estimate Normal Large Platelets Present Hypochromasia (manual) Slight Poikilocytosis (manual Slight Basophilic Stippling Slight Anisocytosis (manual) Slight Tear Drop Cells Slight Ovalocytes Slight Chyna Cells Slight PT 14.0 H INR 1.3 APTT 30 Puncture Site pCO2 pO2 HCO3 ABG pH ABG Total CO2 ABG O2 Saturation ABG Base Excess ABG Hemoglobin ABG Carboxyhemoglobin POC ABG HHb (Measured) ABG Methemoglobin Candido Test ABG Potassium A-a O2 Difference Respiratory Index Hgb O2 Saturation Glucose Lactate Vent Mode Mechanical Rate FiO2 Tidal Volume PEEP Crit Value Called To Crit Value Called By Crit Value Read Back Blood Gas Notified Time Sodium 128 L Potassium 6.6 H* D Chloride 97 L Carbon Dioxide 19 L Anion Gap 18 BUN 112 H* D Creatinine 4.9 H Est GFR ( Amer) 10 Est GFR (Non-Af Amer) 8 POC Glucose (mg/dL) Random Glucose 245 H Calcium 7.8 L Phosphorus 8.3 H Magnesium 2.6 H Total Bilirubin 0.8 AST 55 H ALT 39 Alkaline Phosphatase 163 H Total Protein 5.9 L Albumin 3.1 L Globulin 2.8 Albumin/Globulin Ratio 1.1 Arterial Blood Potassium Blood Type Antibody Screen 07/05/18 07/05/18 07/05/18 21:00 22:05 23:58 WBC RBC Hgb Hct MCV MCH MCHC RDW Plt Count MPV Neut % (Auto) Lymph % (Auto) [place] % (Auto) Eos % (Auto) Baso % (Auto) Neut # (Auto) Lymph # (Auto) [place] # (Auto) Eos # (Auto) Baso # (Auto) Neutrophils % (Manual) Band Neutrophils % Lymphocytes % (Manual) Monocytes % (Manual) Eosinophils % (Manual) Myelocytes % Nucleated RBC % Platelet Estimate Large Platelets Hypochromasia (manual) Poikilocytosis (manual Basophilic Stippling Anisocytosis (manual) Tear Drop Cells Ovalocytes Chyna Cells PT INR APTT Puncture Site Lfem Rradial pCO2 71 H* 60 H pO2 53 L 90 HCO3 14.9 L 20.4 L ABG pH 7.05 L* 7.19 L* ABG Total CO2 21.8 L 24.7 ABG O2 Saturation 88.8 L 96.1 ABG Base Excess -11.9 L -5.8 L ABG Hemoglobin 10.9 L ABG Carboxyhemoglobin 0.6 POC ABG HHb (Measured) 3.9 ABG Methemoglobin 0.5 Candiod Test Neg Pos ABG Potassium 6.5 H* A-a O2 Difference 571.0 192.0 Respiratory Index 10.8 2.1 Hgb O2 Saturation 95.0 Glucose 261 H Lactate 1.4 Vent Mode Prvc Mechanical Rate 12 FiO2 100.0 50.0 Tidal Volume 360 PEEP 3 Crit Value Called To Dr. stefan aviles Crit Value Called By jon Ambriz rcp Crit Value Read Back Y Y Blood Gas Notified Time 2111 2219 Sodium 129.0 L Potassium Chloride 101.0 Carbon Dioxide Anion Gap BUN Creatinine Est GFR ( Amer) Est GFR (Non-Af Amer) POC Glucose (mg/dL) 229 H Random Glucose Calcium Phosphorus Magnesium Total Bilirubin AST ALT Alkaline Phosphatase Total Protein Albumin Globulin Albumin/Globulin Ratio Arterial Blood Potassium 6.5 H* Blood Type Antibody Screen 07/06/18 07/06/18 07/06/18 00:37 05:06 05:21 WBC RBC Hgb Hct MCV MCH MCHC RDW Plt Count MPV Neut % (Auto) Lymph % (Auto) [place] % (Auto) Eos % (Auto) Baso % (Auto) Neut # (Auto) Lymph # (Auto) [place] # (Auto) Eos # (Auto) Baso # (Auto) Neutrophils % (Manual) Band Neutrophils % Lymphocytes % (Manual) Monocytes % (Manual) Eosinophils % (Manual) Myelocytes % Nucleated RBC % Platelet Estimate Large Platelets Hypochromasia (manual) Poikilocytosis (manual Basophilic Stippling Anisocytosis (manual) Tear Drop Cells Ovalocytes Chyna Cells PT INR APTT Puncture Site Rb pCO2 64 H pO2 123 H HCO3 21.7 ABG pH 7.20 L ABG Total CO2 27.0 ABG O2 Saturation 99.3 H ABG Base Excess -4.2 L ABG Hemoglobin ABG Carboxyhemoglobin POC ABG HHb (Measured) ABG Methemoglobin Candido Test Na ABG Potassium 5.2 A-a O2 Difference 439.0 Respiratory Index 3.6 Hgb O2 Saturation Glucose 308 H Lactate 1.0 Vent Mode Prvc Mechanical Rate 20 FiO2 90.0 Tidal Volume 400 PEEP 3 Crit Value Called To Crit Value Called By Crit Value Read Back Blood Gas Notified Time Sodium 129 L 132.0 Potassium 6.1 H Chloride 97 L 101.0 Carbon Dioxide 22 Anion Gap 17 BUN 114 H* Creatinine 5.1 H Est GFR ( Amer) 10 Est GFR (Non-Af Amer) 8 POC Glucose (mg/dL) 309 H Random Glucose 204 H Calcium 7.7 L Phosphorus Magnesium Total Bilirubin AST ALT Alkaline Phosphatase Total Protein Albumin Globulin Albumin/Globulin Ratio Arterial Blood Potassium 5.2 Blood Type Antibody Screen 07/06/18 07/06/18 07/06/18 05:35 05:37 05:46 WBC 16.2 H RBC 2.55 L Hgb 7.1 L Hct 22.1 L MCV 86.8 MCH 27.9 MCHC 32.1 L RDW 17.7 H Plt Count 138 MPV 11.6 Neut % (Auto) 90.9 H Lymph % (Auto) 1.4 L [place] % (Auto) 6.0 Eos % (Auto) 0.4 Baso % (Auto) 1.3 Neut # (Auto) 14.7 H Lymph # (Auto) 0.2 L [place] # (Auto) 1.0 H Eos # (Auto) 0.1 Baso # (Auto) 0.2 Neutrophils % (Manual) 93 H Band Neutrophils % 1 Lymphocytes % (Manual) 1 L Monocytes % (Manual) 2 Eosinophils % (Manual) 1 Myelocytes % 2 H Nucleated RBC % 1 H Platelet Estimate Normal Large Platelets Present Hypochromasia (manual) Slight Poikilocytosis (manual Slight Basophilic Stippling Slight Anisocytosis (manual) Slight Tear Drop Cells Slight Ovalocytes Slight Chyna Cells Slight PT INR APTT Puncture Site pCO2 pO2 HCO3 ABG pH ABG Total CO2 ABG O2 Saturation ABG Base Excess ABG Hemoglobin ABG Carboxyhemoglobin POC ABG HHb (Measured) ABG Methemoglobin Candido Test ABG Potassium A-a O2 Difference Respiratory Index Hgb O2 Saturation Glucose Lactate Vent Mode Mechanical Rate FiO2 Tidal Volume PEEP Crit Value Called To Crit Value Called By Crit Value Read Back Blood Gas Notified Time Sodium 133 Potassium 5.4 H Chloride 95 L Carbon Dioxide 25 Anion Gap 17 BUN 111 H* Creatinine 4.9 H Est GFR ( Amer) 10 Est GFR (Non-Af Amer) 8 POC Glucose (mg/dL) Random Glucose 293 H Calcium 7.5 L Phosphorus 7.6 H Magnesium 2.4 H Total Bilirubin 0.6 AST 44 H ALT 37 Alkaline Phosphatase 158 H Total Protein 5.5 L Albumin 2.8 L Globulin 2.7 Albumin/Globulin Ratio 1.0 Arterial Blood Potassium Blood Type A POSITIVE Antibody Screen Negative Radiology Impressions: Radiology Impressions Chest X-Ray 07/05/18 18:28 IMPRESSION: Large right pneumothorax and small left pneumothorax. Pneumomediastinum. Endotracheal tube and nasogastric tube. AICD. Extensive subcutaneous emphysema. Fingerstick Blood Sugar Results: 309 Critical Care Progress Note - Nutrition Nutrition: Nutrition Category Date Time Status NPO Diet [DIET] Diets 07/06/18 Breakfast Active Assessment/Plan - Assessment and Plan (Free Text) Assessment: 87 y/o female with PMHx of CAD w/ stents, ischemic CM EF 30% with AICD, DM2, COPD, HTN, asthma, arthritis, anxiety was admitted to hospital due to shortness of breath with cough on 06/25/18. In ICU for increasing SOB and hypotension, transferred 07/05 from medicine floor. Neuro -sedated on precedex drip -not alert, awake, non-responsive Pulm -intubated, ventilated: current settings FiO2 80%, rate 24, vol 0.4, PEEP 3 -CXR 07/05 showed pneumothorax of left lung, chest tube placed -during intubation, patient found to be congested - duoneb and mucomist -daliresp 500 mcg PO daily on hold due to hypotension -ABG and CXR qAM CV -dobutamine drip for hypotension -aspirin 325 mg daily -crestor 20 mg qhs -lasix IV daily on hold due to hypotension -metoprolol held due to hypotension -ranexa 500 mg PO BID on hold -entresto 1 tab PO BID on hold due to hypotension GI -200 cc of coffee ground substance suctioned from OG tube during intubation -patient without current coffee ground suctioning -resume diet while intubated - glucerna ordered 07/06 Renal -Kidney failure - this morning BUN/Cr 111/4.9 -BUN/Cr elevated and uptrending, last taken before ICU admission on 07/02 - 64/2.3 (admission was within normal limits: 05/19.1) -trend CMP ID -sputum culture taken on 06/25 positive for pseudomonas aeruginosa -cefipime started 07/01 -zyvox started 07/03 Endo -h/o DM -ISS -accuchecks ACHS -repaglinide 2 mg PO daily held -hypoglycemia protocol Heme -normocytic anemia -trend CBC DVT ppx: SCDs GI ppx: protonix 40 mg IV Diet: glucerna OG tube feed code: FULL dispo: Palliative care consult ordered to discuss goals of care with family. case discussed with Dr. King Ramirez PGY1 <Luke Malik - Last Filed: 07/06/18 17:38> CCU Subjective - Physician Review Critical Care Time Spent (in minutes): 45 CCU Objective - Vital Signs / Intake & Output Vital Signs (Last 4 hours): Vital Signs Temp Pulse Resp BP Pulse Ox 07/06/18 17:00 107 H 16 99 07/06/18 16:59 106 H 21 99/42 L 100 07/06/18 16:45 106 H 23 100 07/06/18 16:30 106 H 22 100 07/06/18 16:29 106 H 15 101/38 L 100 07/06/18 16:15 106 H 24 100 07/06/18 16:00 96.7 F L 106 H 23 100 07/06/18 15:59 107 H 18 112/39 L 100 07/06/18 15:45 106 H 14 100 07/06/18 15:30 105 H 23 100 07/06/18 15:29 106 H 23 100/34 L 99 07/06/18 15:28 105 H 24 107/33 L 100 07/06/18 15:15 103 H 23 95 07/06/18 15:00 102 H 30 H 100 07/06/18 14:59 102 H 22 101/43 L 100 07/06/18 14:45 103 H 25 H 99/40 L 99 07/06/18 14:30 106 H 24 97/39 L 100 07/06/18 14:15 107 H 24 97/42 L 100 07/06/18 14:00 107 H 24 99/36 L 100 07/06/18 13:45 106 H 17 94/28 L 97 07/06/18 13:36 103 H 21 93/44 L 97 Intake and Output (Last 8hrs): Intake & Output 07/06/18 07/06/18 07/06/18 06:59 14:59 22:59 Intake Total 1222.0 2285.4 547.2 Output Total 0 20 5 Balance 1222.0 2265.4 542.2 Weight 115 lb Intake: IV 171 330 Intake, IV Amount 1051.0 1470.4 442.2 rt ij tlc distal port 700 800 300 rt ij tlc middle port 56 56.8 21.3 rt ij tlc middle portt y 172.5 296.1 120.9 rt ij tlc proximal port 122.5 317.5 Oral 80 30 Tube Feeding 80 75 Blood Product 325 Red Blood Cells Cpd As1 325 Lr Unit [id number] Output: Urine 0 20 5 Urethral (Howard) 0 20 5 Other: # Bowel Movements 0 0 - Medications Active Medications: Active Medications Generic Name Dose Route Start Last Admin Trade Name Freq PRN Reason Stop Dose Admin Albuterol Sulfate 1.25 mg 07/01/18 21:02 Albuterol 0.042% Inhal Bell (1.25mg/3ml) Ud INH RQ2 PRN Wheezing Albuterol/Ipratropium 3 ml 07/02/18 02:00 07/06/18 13:56 Duoneb 3 Mg/0.5 Mg (3 Ml) Ud INH Not Given RQ6 JONNA Calcium Acetate 667 mg 07/06/18 08:00 07/06/18 16:40 Phoslo PO 667 mg BIDCC JONNA Administration Ergocalciferol 1 cap 06/30/18 10:00 06/30/18 09:38 Drisdol 50,000 Intl Units Cap PO 1 cap QWK JONNA Administration Furosemide 20 mg 06/26/18 13:13 07/06/18 10:20 Lasix IVP Not Given DAILY JONNA Cefepime HCl 0.5 gm/ Dextrose 50 mls @ 100 mls/hr 07/01/18 10:00 07/06/18 10:28 IVPB 100 mls/hr Q24H JONNA Administration Protocol Linezolid 600 mg in 300 mls @ 200 mls/hr 07/03/18 01:00 07/06/18 13:10 Zyvox 600mg/300ml D5w IVPB 200 mls/hr Q12H JONNA Administration Protocol Dobutamine HCl/Dextrose 500 mg in 250 mls @ 7.076 mls/hr 07/03/18 15:10 07/06/18 15:25 Dobutamine/Dextrose 5% 500mg/250ml IV Not Given .Q24H JONNA Protocol 5 MCG/KG/MIN Dexmedetomidine HCl 200 mcg/ 50 mls @ 2.34 mls/hr 07/05/18 18:39 07/06/18 14:39 Sodium Chloride IV 1.49 mcg/kg/hr TITR PRN 17.5 mls/hr Sedation Administration Protocol 0.2 MCG/KG/HR Norepinephrine Bitartrate 4 mg 254 mls @ 15.24 mls/hr 07/05/18 20:32 07/06/18 11:35 / Sodium Chloride IV 6 mcg/min .[id number] PRN 22.86 mls/hr TITRATE PER MD ORDER Titration Protocol 4 MCG/MIN Sodium Bicarbonate 100 meq/ 1,100 mls @ 100 mls/hr 07/06/18 01:30 07/06/18 13:14 Sodium Chloride IV 100 mls/hr .Q11H JONNA Administration Amino Acids 1,000 mls @ 50 mls/hr 07/07/18 14:13 Clinimix 4.25/5 % "E" (1000 Ml) IV 07/07/18 18:00 .Q20H JONNA Insulin Human Regular 0 unit 07/06/18 00:00 07/06/18 12:37 Novolin R SC 2 u Q6H JONNA Administration Protocol Metoprolol Tartrate 25 mg 06/24/18 10:00 07/06/18 10:20 Lopressor PO Not Given BID JONNA Montelukast Sodium 10 mg 06/24/18 10:00 07/06/18 10:19 Singulair PO 10 mg DAILY JONNA Administration Morphine Sulfate 2 mg 07/02/18 15:58 07/06/18 15:25 Morphine IVP 2 mg Q4 PRN Administration Anxiety Pantoprazole Sodium 40 mg 07/06/18 10:00 07/06/18 10:13 Protonix Inj IVP 40 mg DAILY JONNA Administration Ranolazine 500 mg 06/24/18 10:00 07/06/18 10:21 Ranexa PO Not Given BID JONNA Repaglinide 2 mg 06/24/18 10:00 07/06/18 10:21 Prandin PO Not Given DAILY JONNA Roflumilast 500 mcg 06/24/18 10:00 07/01/18 10:27 Daliresp PO 500 mcg DAILY JONNA Administration Rosuvastatin Calcium 20 mg 06/23/18 22:00 07/05/18 21:40 Crestor PO Not Given HS JONNA Sacubitril/Valsartan 1 tab 06/24/18 18:00 07/06/18 10:20 Entresto 49 Mg-51 Mg PO Not Given BID JONNA - Patient Studies Lab Studies: Lab Studies 07/06/18 07/06/18 07/06/18 Range/Units 11:38 11:00 10:51 WBC (4.8-10.8) K/uL RBC (3.80-5.20) Mil/uL Hgb (11.0-16.0) g/dL Hct (34.0-47.0) % MCV (81.0-99.0) fL MCH (27.0-31.0) pg MCHC (33.0-37.0) g/dL RDW (11.5-14.5) % Plt Count (130-400) K/uL MPV (7.2-11.7) fL Neut % (Auto) (50.0-75.0) % Lymph % (Auto) (20.0-40.0) % [place] % (Auto) (0.0-10.0) % Eos % (Auto) (0.0-4.0) % Baso % (Auto) (0.0-2.0) % Neut # (Auto) (1.8-7.0) K/uL Lymph # (Auto) (1.0-4.3) K/uL [place] # (Auto) (0.0-0.8) K/uL Eos # (Auto) (0.0-0.7) K/uL Baso # (Auto) (0.0-0.2) K/uL Neutrophils % (Manual) (50-75) % Band Neutrophils % (0-2) % Lymphocytes % (Manual) (20-40) % Monocytes % (Manual) (0-10) % Eosinophils % (Manual) (0-4) % Myelocytes % (0-0) % Nucleated RBC % (0-0) % Platelet Estimate (NORMAL) Large Platelets Hypochromasia (manual) Poikilocytosis (manual Basophilic Stippling Anisocytosis (manual) Tear Drop Cells Ovalocytes [place] Cells PT (9.7-12.2) SECONDS INR APTT (21-34) SECONDS Puncture Site Lfa pCO2 54 H (35-45) mm/Hg pO2 89 (80-100) mm/Hg HCO3 21.6 (21-28) mmol/L ABG pH 7.25 L (7.35-7.45) ABG Total CO2 25.4 (22-28) mmol/L ABG O2 Saturation 98.5 H (95-98) % ABG Base Excess -4.2 L (-2.0-3.0) mmol/L ABG Hemoglobin (11.7-17.4) g/dL ABG Carboxyhemoglobin (0.5-1.5) % POC ABG HHb (Measured) (0.0-5.0) % ABG Methemoglobin (0.0-3.0) % Candido Test Na ABG Potassium 4.3 (3.6-5.2) mmol/L A-a O2 Difference 414.0 mm/Hg Respiratory Index 4.7 Hgb O2 Saturation (95.0-98.0) % Glucose 233 H (65-105) mg/dl Lactate 1.8 (0.7-2.1) mmol/L Vent Mode Prvc Mechanical Rate FiO2 80.0 % Tidal Volume 400 PEEP 3 Crit Value Called To Crit Value Called By Crit Value Read Back Blood Gas Notified Time Sodium 134 136.0 (132-148) mmol/L Potassium 4.6 (3.6-5.2) mmol/L Chloride 96 L 103.0 (98-107) mmol/L Carbon Dioxide 26 (22-30) mmol/L Anion Gap 16 (10-20) BUN 105 H* (7-17) mg/dL Creatinine 4.6 H (0.7-1.2) mg/dL Est GFR ( Amer) 11 Est GFR (Non-Af Amer) 9 POC Glucose (mg/dL) 193 H (65-110) mg/dL Random Glucose 218 H (65-105) mg/dL Calcium 7.3 L (8.6-10.4) mg/dl Phosphorus (2.5-4.5) mg/dL Magnesium (1.6-2.3) mg/dL Total Bilirubin 0.9 (0.2-1.3) mg/dL AST 34 (14-36) U/L ALT 37 (9-52) U/L Alkaline Phosphatase 138 H (38-126) U/L Total Protein 5.2 L (6.3-8.3) g/dL Albumin 2.5 L (3.5-5.0) g/dL Globulin 2.7 (2.2-3.9) gm/dL Albumin/Globulin Ratio 0.9 L (1.0-2.1) Arterial Blood Potassium 4.3 (3.6-5.2) mmol/L Blood Type Antibody Screen 07/06/18 07/06/18 07/06/18 Range/Units 10:45 05:46 05:37 WBC 16.2 H (4.8-10.8) K/uL RBC 2.55 L (3.80-5.20) Mil/uL Hgb 7.1 L (11.0-16.0) g/dL Hct 22.1 L (34.0-47.0) % MCV 86.8 (81.0-99.0) fL MCH 27.9 (27.0-31.0) pg MCHC 32.1 L (33.0-37.0) g/dL RDW 17.7 H (11.5-14.5) % Plt Count 138 (130-400) K/uL MPV 11.6 (7.2-11.7) fL Neut % (Auto) 90.9 H (50.0-75.0) % Lymph % (Auto) 1.4 L (20.0-40.0) % [place] % (Auto) 6.0 (0.0-10.0) % Eos % (Auto) 0.4 (0.0-4.0) % Baso % (Auto) 1.3 (0.0-2.0) % Neut # (Auto) 14.7 H (1.8-7.0) K/uL Lymph # (Auto) 0.2 L (1.0-4.3) K/uL [place] # (Auto) 1.0 H (0.0-0.8) K/uL Eos # (Auto) 0.1 (0.0-0.7) K/uL Baso # (Auto) 0.2 (0.0-0.2) K/uL Neutrophils % (Manual) 93 H (50-75) % Band Neutrophils % 1 (0-2) % Lymphocytes % (Manual) 1 L (20-40) % Monocytes % (Manual) 2 (0-10) % Eosinophils % (Manual) 1 (0-4) % Myelocytes % 2 H (0-0) % Nucleated RBC % 1 H (0-0) % Platelet Estimate Normal (NORMAL) Large Platelets Present Hypochromasia (manual) Slight Poikilocytosis (manual Slight Basophilic Stippling Slight Anisocytosis (manual) Slight Tear Drop Cells Slight Ovalocytes Slight Chyna Cells Slight PT (9.7-12.2) SECONDS INR APTT (21-34) SECONDS Puncture Site pCO2 (35-45) mm/Hg pO2 (80-100) mm/Hg HCO3 (21-28) mmol/L ABG pH (7.35-7.45) ABG Total CO2 (22-28) mmol/L ABG O2 Saturation (95-98) % ABG Base Excess (-2.0-3.0) mmol/L ABG Hemoglobin (11.7-17.4) g/dL ABG Carboxyhemoglobin (0.5-1.5) % POC ABG HHb (Measured) (0.0-5.0) % ABG Methemoglobin (0.0-3.0) % Candido Test ABG Potassium (3.6-5.2) mmol/L A-a O2 Difference mm/Hg Respiratory Index Hgb O2 Saturation (95.0-98.0) % Glucose (65-105) mg/dl Lactate (0.7-2.1) mmol/L Vent Mode Mechanical Rate FiO2 % Tidal Volume PEEP Crit Value Called To Crit Value Called By Crit Value Read Back Blood Gas Notified Time Sodium (132-148) mmol/L Potassium (3.6-5.2) mmol/L Chloride (98-107) mmol/L Carbon Dioxide (22-30) mmol/L Anion Gap (10-20) BUN (7-17) mg/dL Creatinine (0.7-1.2) mg/dL Est GFR ( Amer) Est GFR (Non-Af Amer) POC Glucose (mg/dL) 253 H (65-110) mg/dL Random Glucose (65-105) mg/dL Calcium (8.6-10.4) mg/dl Phosphorus (2.5-4.5) mg/dL Magnesium (1.6-2.3) mg/dL Total Bilirubin (0.2-1.3) mg/dL AST (14-36) U/L ALT (9-52) U/L Alkaline Phosphatase (38-126) U/L Total Protein (6.3-8.3) g/dL Albumin (3.5-5.0) g/dL Globulin (2.2-3.9) gm/dL Albumin/Globulin Ratio (1.0-2.1) Arterial Blood Potassium (3.6-5.2) mmol/L Blood Type A POSITIVE Antibody Screen Negative 07/06/18 07/06/18 07/06/18 Range/Units 05:35 05:21 05:06 WBC (4.8-10.8) K/uL RBC (3.80-5.20) Mil/uL Hgb (11.0-16.0) g/dL Hct (34.0-47.0) % MCV (81.0-99.0) fL MCH (27.0-31.0) pg MCHC (33.0-37.0) g/dL RDW (11.5-14.5) % Plt Count (130-400) K/uL MPV (7.2-11.7) fL Neut % (Auto) (50.0-75.0) % Lymph % (Auto) (20.0-40.0) % [place] % (Auto) (0.0-10.0) % Eos % (Auto) (0.0-4.0) % Baso % (Auto) (0.0-2.0) % Neut # (Auto) (1.8-7.0) K/uL Lymph # (Auto) (1.0-4.3) K/uL [place] # (Auto) (0.0-0.8) K/uL Eos # (Auto) (0.0-0.7) K/uL Baso # (Auto) (0.0-0.2) K/uL Neutrophils % (Manual) (50-75) % Band Neutrophils % (0-2) % Lymphocytes % (Manual) (20-40) % Monocytes % (Manual) (0-10) % Eosinophils % (Manual) (0-4) % Myelocytes % (0-0) % Nucleated RBC % (0-0) % Platelet Estimate (NORMAL) Large Platelets Hypochromasia (manual) Poikilocytosis (manual Basophilic Stippling Anisocytosis (manual) Tear Drop Cells Ovalocytes [place] Cells PT (9.7-12.2) SECONDS INR APTT (21-34) SECONDS Puncture Site Rb pCO2 64 H (35-45) mm/Hg pO2 123 H (80-100) mm/Hg HCO3 21.7 (21-28) mmol/L ABG pH 7.20 L (7.35-7.45) ABG Total CO2 27.0 (22-28) mmol/L ABG O2 Saturation 99.3 H (95-98) % ABG Base Excess -4.2 L (-2.0-3.0) mmol/L ABG Hemoglobin (11.7-17.4) g/dL ABG Carboxyhemoglobin (0.5-1.5) % POC ABG HHb (Measured) (0.0-5.0) % ABG Methemoglobin (0.0-3.0) % Candido Test Na ABG Potassium 5.2 (3.6-5.2) mmol/L A-a O2 Difference 439.0 mm/Hg Respiratory Index 3.6 Hgb O2 Saturation (95.0-98.0) % Glucose 308 H (65-105) mg/dl Lactate 1.0 (0.7-2.1) mmol/L Vent Mode Prvc Mechanical Rate 20 FiO2 90.0 % Tidal Volume 400 PEEP 3 Crit Value Called To Crit Value Called By Crit Value Read Back Blood Gas Notified Time Sodium 133 132.0 (132-148) mmol/L Potassium 5.4 H (3.6-5.2) mmol/L Chloride 95 L 101.0 (98-107) mmol/L Carbon Dioxide 25 (22-30) mmol/L Anion Gap 17 (10-20) BUN 111 H* (7-17) mg/dL Creatinine 4.9 H (0.7-1.2) mg/dL Est GFR ( Amer) 10 Est GFR (Non-Af Amer) 8 POC Glucose (mg/dL) 309 H (65-110) mg/dL Random Glucose 293 H (65-105) mg/dL Calcium 7.5 L (8.6-10.4) mg/dl Phosphorus 7.6 H (2.5-4.5) mg/dL Magnesium 2.4 H (1.6-2.3) mg/dL Total Bilirubin 0.6 (0.2-1.3) mg/dL AST 44 H (14-36) U/L ALT 37 (9-52) U/L Alkaline Phosphatase 158 H (38-126) U/L Total Protein 5.5 L (6.3-8.3) g/dL Albumin 2.8 L (3.5-5.0) g/dL Globulin 2.7 (2.2-3.9) gm/dL Albumin/Globulin Ratio 1.0 (1.0-2.1) Arterial Blood Potassium 5.2 (3.6-5.2) mmol/L Blood Type Antibody Screen 07/06/18 07/05/18 07/05/18 Range/Units 00:37 23:58 22:05 WBC (4.8-10.8) K/uL RBC (3.80-5.20) Mil/uL Hgb (11.0-16.0) g/dL Hct (34.0-47.0) % MCV (81.0-99.0) fL MCH (27.0-31.0) pg MCHC (33.0-37.0) g/dL RDW (11.5-14.5) % Plt Count (130-400) K/uL MPV (7.2-11.7) fL Neut % (Auto) (50.0-75.0) % Lymph % (Auto) (20.0-40.0) % [place] % (Auto) (0.0-10.0) % Eos % (Auto) (0.0-4.0) % Baso % (Auto) (0.0-2.0) % Neut # (Auto) (1.8-7.0) K/uL Lymph # (Auto) (1.0-4.3) K/uL [place] # (Auto) (0.0-0.8) K/uL Eos # (Auto) (0.0-0.7) K/uL Baso # (Auto) (0.0-0.2) K/uL Neutrophils % (Manual) (50-75) % Band Neutrophils % (0-2) % Lymphocytes % (Manual) (20-40) % Monocytes % (Manual) (0-10) % Eosinophils % (Manual) (0-4) % Myelocytes % (0-0) % Nucleated RBC % (0-0) % Platelet Estimate (NORMAL) Large Platelets Hypochromasia (manual) Poikilocytosis (manual Basophilic Stippling Anisocytosis (manual) Tear Drop Cells Ovalocytes [place] Cells PT (9.7-12.2) SECONDS INR APTT (21-34) SECONDS Puncture Site Rradial pCO2 60 H (35-45) mm/Hg pO2 90 (80-100) mm/Hg HCO3 20.4 L (21-28) mmol/L ABG pH 7.19 L* (7.35-7.45) ABG Total CO2 24.7 (22-28) mmol/L ABG O2 Saturation 96.1 (95-98) % ABG Base Excess -5.8 L (-2.0-3.0) mmol/L ABG Hemoglobin 10.9 L (11.7-17.4) g/dL ABG Carboxyhemoglobin 0.6 (0.5-1.5) % POC ABG HHb (Measured) 3.9 (0.0-5.0) % ABG Methemoglobin 0.5 (0.0-3.0) % Candido Test Pos ABG Potassium (3.6-5.2) mmol/L A-a O2 Difference 192.0 mm/Hg Respiratory Index 2.1 Hgb O2 Saturation 95.0 (95.0-98.0) % Glucose (65-105) mg/dl Lactate (0.7-2.1) mmol/L Vent Mode Mechanical Rate FiO2 50.0 % Tidal Volume PEEP Crit Value Called To Dr. aviles Crit Value Called By Bryanna gonzalez rcp Crit Value Read Back Y Blood Gas Notified Time 2220 Sodium 129 L (132-148) mmol/L Potassium 6.1 H (3.6-5.2) mmol/L Chloride 97 L (98-107) mmol/L Carbon Dioxide 22 (22-30) mmol/L Anion Gap 17 (10-20) BUN 114 H* (7-17) mg/dL Creatinine 5.1 H (0.7-1.2) mg/dL Est GFR ( Amer) 10 Est GFR (Non-Af Amer) 8 POC Glucose (mg/dL) 229 H (65-110) mg/dL Random Glucose 204 H (65-105) mg/dL Calcium 7.7 L (8.6-10.4) mg/dl Phosphorus (2.5-4.5) mg/dL Magnesium (1.6-2.3) mg/dL Total Bilirubin (0.2-1.3) mg/dL AST (14-36) U/L ALT (9-52) U/L Alkaline Phosphatase (38-126) U/L Total Protein (6.3-8.3) g/dL Albumin (3.5-5.0) g/dL Globulin (2.2-3.9) gm/dL Albumin/Globulin Ratio (1.0-2.1) Arterial Blood Potassium (3.6-5.2) mmol/L Blood Type Antibody Screen 07/05/18 07/05/18 07/05/18 Range/Units 21:00 20:53 20:53 WBC (4.8-10.8) K/uL RBC (3.80-5.20) Mil/uL Hgb (11.0-16.0) g/dL Hct (34.0-47.0) % MCV (81.0-99.0) fL MCH (27.0-31.0) pg MCHC (33.0-37.0) g/dL RDW (11.5-14.5) % Plt Count (130-400) K/uL MPV (7.2-11.7) fL Neut % (Auto) (50.0-75.0) % Lymph % (Auto) (20.0-40.0) % [place] % (Auto) (0.0-10.0) % Eos % (Auto) (0.0-4.0) % Baso % (Auto) (0.0-2.0) % Neut # (Auto) (1.8-7.0) K/uL Lymph # (Auto) (1.0-4.3) K/uL [place] # (Auto) (0.0-0.8) K/uL Eos # (Auto) (0.0-0.7) K/uL Baso # (Auto) (0.0-0.2) K/uL Neutrophils % (Manual) (50-75) % Band Neutrophils % (0-2) % Lymphocytes % (Manual) (20-40) % Monocytes % (Manual) (0-10) % Eosinophils % (Manual) (0-4) % Myelocytes % (0-0) % Nucleated RBC % (0-0) % Platelet Estimate (NORMAL) Large Platelets Hypochromasia (manual) Poikilocytosis (manual Basophilic Stippling Anisocytosis (manual) Tear Drop Cells Ovalocytes [place]yna Cells PT 14.0 H (9.7-12.2) SECONDS INR 1.3 APTT 30 (21-34) SECONDS Puncture Site Lfem pCO2 71 H* (35-45) mm/Hg pO2 53 L (80-100) mm/Hg HCO3 14.9 L (21-28) mmol/L ABG pH 7.05 L* (7.35-7.45) ABG Total CO2 21.8 L (22-28) mmol/L ABG O2 Saturation 88.8 L (95-98) % ABG Base Excess -11.9 L (-2.0-3.0) mmol/L ABG Hemoglobin (11.7-17.4) g/dL ABG Carboxyhemoglobin (0.5-1.5) % POC ABG HHb (Measured) (0.0-5.0) % ABG Methemoglobin (0.0-3.0) % Candido Test Neg ABG Potassium 6.5 H* (3.6-5.2) mmol/L A-a O2 Difference 571.0 mm/Hg Respiratory Index 10.8 Hgb O2 Saturation (95.0-98.0) % Glucose 261 H (65-105) mg/dl Lactate 1.4 (0.7-2.1) mmol/L Vent Mode Prvc Mechanical Rate 12 FiO2 100.0 % Tidal Volume 360 PEEP 3 Crit Value Called To Dr. aviles Crit Value Called By Bryanna gonzalez rcp Crit Value Read Back Y Blood Gas Notified Time 2111 Sodium 129.0 L 128 L (132-148) mmol/L Potassium 6.6 H* D (3.6-5.2) mmol/L Chloride 101.0 97 L (98-107) mmol/L Carbon Dioxide 19 L (22-30) mmol/L Anion Gap 18 (10-20) BUN 112 H* D (7-17) mg/dL Creatinine 4.9 H (0.7-1.2) mg/dL Est GFR ( Amer) 10 Est GFR (Non-Af Amer) 8 POC Glucose (mg/dL) (65-110) mg/dL Random Glucose 245 H (65-105) mg/dL Calcium 7.8 L (8.6-10.4) mg/dl Phosphorus 8.3 H (2.5-4.5) mg/dL Magnesium 2.6 H (1.6-2.3) mg/dL Total Bilirubin 0.8 (0.2-1.3) mg/dL AST 55 H (14-36) U/L ALT 39 (9-52) U/L Alkaline Phosphatase 163 H (38-126) U/L Total Protein 5.9 L (6.3-8.3) g/dL Albumin 3.1 L (3.5-5.0) g/dL Globulin 2.8 (2.2-3.9) gm/dL Albumin/Globulin Ratio 1.1 (1.0-2.1) Arterial Blood Potassium 6.5 H* (3.6-5.2) mmol/L Blood Type Antibody Screen 07/05/18 07/05/18 07/05/18 Range/Units 20:53 17:14 00:38 WBC 21.6 H D (4.8-10.8) K/uL RBC 2.71 L (3.80-5.20) Mil/uL Hgb 7.4 L (11.0-16.0) g/dL Hct 23.7 L (34.0-47.0) % MCV 87.4 (81.0-99.0) fL MCH 27.4 (27.0-31.0) pg MCHC 31.3 L (33.0-37.0) g/dL RDW 17.4 H (11.5-14.5) % Plt Count 150 (130-400) K/uL MPV 10.6 (7.2-11.7) fL Neut % (Auto) 91.3 H (50.0-75.0) % Lymph % (Auto) 0.8 L (20.0-40.0) % [place] % (Auto) 7.4 (0.0-10.0) % Eos % (Auto) 0.2 (0.0-4.0) % Baso % (Auto) 0.3 (0.0-2.0) % Neut # (Auto) 19.7 H (1.8-7.0) K/uL Lymph # (Auto) 0.2 L (1.0-4.3) K/uL [place] # (Auto) 1.6 H (0.0-0.8) K/uL Eos # (Auto) 0.0 (0.0-0.7) K/uL Baso # (Auto) 0.1 (0.0-0.2) K/uL Neutrophils % (Manual) 89 H (50-75) % Band Neutrophils % (0-2) % Lymphocytes % (Manual) 1 L (20-40) % Monocytes % (Manual) 8 (0-10) % Eosinophils % (Manual) 2 (0-4) % Myelocytes % (0-0) % Nucleated RBC % (0-0) % Platelet Estimate Normal (NORMAL) Large Platelets Present Hypochromasia (manual) Slight Poikilocytosis (manual Slight Basophilic Stippling Slight Anisocytosis (manual) Slight Tear Drop Cells Slight Ovalocytes Slight Chyna Cells Slight PT (9.7-12.2) SECONDS INR APTT (21-34) SECONDS Puncture Site Rb pCO2 64 H (35-45) mm/Hg pO2 147 H (80-100) mm/Hg HCO3 18.5 L (21-28) mmol/L ABG pH 7.12 L* (7.35-7.45) ABG Total CO2 22.8 (22-28) mmol/L ABG O2 Saturation 99.3 H (95-98) % ABG Base Excess -8.2 L (-2.0-3.0) mmol/L ABG Hemoglobin 7.3 L (11.7-17.4) g/dL ABG Carboxyhemoglobin 1.8 H (0.5-1.5) % POC ABG HHb (Measured) 0.7 (0.0-5.0) % ABG Methemoglobin 1.4 (0.0-3.0) % Candido Test Na ABG Potassium (3.6-5.2) mmol/L A-a O2 Difference 486.0 mm/Hg Respiratory Index 3.3 Hgb O2 Saturation 96.2 (95.0-98.0) % Glucose (65-105) mg/dl Lactate (0.7-2.1) mmol/L Vent Mode Prvc Mechanical Rate 20 FiO2 100.0 % Tidal Volume 360 PEEP 3 Crit Value Called To Dr. avlies Crit Value Called By [employer] client service associate Crit Value Read Back Y Blood Gas Notified Time 119 Sodium (132-148) mmol/L Potassium (3.6-5.2) mmol/L Chloride (98-107) mmol/L Carbon Dioxide (22-30) mmol/L Anion Gap (10-20) BUN (7-17) mg/dL Creatinine (0.7-1.2) mg/dL Est GFR ( Amer) Est GFR (Non-Af Amer) POC Glucose (mg/dL) 283 H (65-110) mg/dL Random Glucose (65-105) mg/dL Calcium (8.6-10.4) mg/dl Phosphorus (2.5-4.5) mg/dL Magnesium (1.6-2.3) mg/dL Total Bilirubin (0.2-1.3) mg/dL AST (14-36) U/L ALT (9-52) U/L Alkaline Phosphatase (38-126) U/L Total Protein (6.3-8.3) g/dL Albumin (3.5-5.0) g/dL Globulin (2.2-3.9) gm/dL Albumin/Globulin Ratio (1.0-2.1) Arterial Blood Potassium (3.6-5.2) mmol/L Blood Type Antibody Screen Laboratory Results - last 24 hr 07/05/18 07/05/18 07/05/18 00:38 17:14 20:53 WBC 21.6 H D RBC 2.71 L Hgb 7.4 L Hct 23.7 L MCV 87.4 MCH 27.4 MCHC 31.3 L RDW 17.4 H Plt Count 150 MPV 10.6 Neut % (Auto) 91.3 H Lymph % (Auto) 0.8 L [place] % (Auto) 7.4 Eos % (Auto) 0.2 Baso % (Auto) 0.3 Neut # (Auto) 19.7 H Lymph # (Auto) 0.2 L [place] # (Auto) 1.6 H Eos # (Auto) 0.0 Baso # (Auto) 0.1 Neutrophils % (Manual) 89 H Band Neutrophils % Lymphocytes % (Manual) 1 L Monocytes % (Manual) 8 Eosinophils % (Manual) 2 Myelocytes % Nucleated RBC % Platelet Estimate Normal Large Platelets Present Hypochromasia (manual) Slight Poikilocytosis (manual Slight Basophilic Stippling Slight Anisocytosis (manual) Slight Tear Drop Cells Slight Ovalocytes Slight Chyna Cells Slight PT INR APTT Puncture Site Rb pCO2 64 H pO2 147 H HCO3 18.5 L ABG pH 7.12 L* ABG Total CO2 22.8 ABG O2 Saturation 99.3 H ABG Base Excess -8.2 L ABG Hemoglobin 7.3 L ABG Carboxyhemoglobin 1.8 H POC ABG HHb (Measured) 0.7 ABG Methemoglobin 1.4 [place] Test Na ABG Potassium A-a O2 Difference 486.0 Respiratory Index 3.3 Hgb O2 Saturation 96.2 Glucose Lactate Vent Mode Prvc Mechanical Rate 20 FiO2 100.0 Tidal Volume 360 PEEP 3 Crit Value Called To Dr. aviles Crit Value Called By [employer] client service associate Crit Value Read Back Y Blood Gas Notified Time 119 Sodium Potassium Chloride Carbon Dioxide Anion Gap BUN Creatinine Est GFR ( Amer) Est GFR (Non-Af Amer) POC Glucose (mg/dL) 283 H Random Glucose Calcium Phosphorus Magnesium Total Bilirubin AST ALT Alkaline Phosphatase Total Protein Albumin Globulin Albumin/Globulin Ratio Arterial Blood Potassium Blood Type Antibody Screen 07/05/18 07/05/18 07/05/18 20:53 20:53 21:00 WBC RBC Hgb Hct MCV MCH MCHC RDW Plt Count MPV Neut % (Auto) Lymph % (Auto) [place] % (Auto) Eos % (Auto) Baso % (Auto) Neut # (Auto) Lymph # (Auto) [place] # (Auto) Eos # (Auto) Baso # (Auto) Neutrophils % (Manual) Band Neutrophils % Lymphocytes % (Manual) Monocytes % (Manual) Eosinophils % (Manual) Myelocytes % Nucleated RBC % Platelet Estimate Large Platelets Hypochromasia (manual) Poikilocytosis (manual Basophilic Stippling Anisocytosis (manual) Tear Drop Cells Ovalocytes Chyna Cells PT 14.0 H INR 1.3 APTT 30 Puncture Site Lfem pCO2 71 H* pO2 53 L HCO3 14.9 L ABG pH 7.05 L* ABG Total CO2 21.8 L ABG O2 Saturation 88.8 L ABG Base Excess -11.9 L ABG Hemoglobin ABG Carboxyhemoglobin POC ABG HHb (Measured) ABG Methemoglobin [place] Test Neg ABG Potassium 6.5 H* A-a O2 Difference 571.0 Respiratory Index 10.8 Hgb O2 Saturation Glucose 261 H Lactate 1.4 Vent Mode Prvc Mechanical Rate 12 FiO2 100.0 Tidal Volume 360 PEEP 3 Crit Value Called To Dr. aviles Crit Value Called By Bryanna gonzalez rcp Crit Value Read Back Y Blood Gas Notified Time 2111 Sodium 128 L 129.0 L Potassium 6.6 H* D Chloride 97 L 101.0 Carbon Dioxide 19 L Anion Gap 18 BUN 112 H* D Creatinine 4.9 H Est GFR ( Amer) 10 Est GFR (Non-Af Amer) 8 POC Glucose (mg/dL) Random Glucose 245 H Calcium 7.8 L Phosphorus 8.3 H Magnesium 2.6 H Total Bilirubin 0.8 AST 55 H ALT 39 Alkaline Phosphatase 163 H Total Protein 5.9 L Albumin 3.1 L Globulin 2.8 Albumin/Globulin Ratio 1.1 Arterial Blood Potassium 6.5 H* Blood Type Antibody Screen 07/05/18 07/05/18 07/06/18 22:05 23:58 00:37 WBC RBC Hgb Hct MCV MCH MCHC RDW Plt Count MPV Neut % (Auto) Lymph % (Auto) [place] % (Auto) Eos % (Auto) Baso % (Auto) Neut # (Auto) Lymph # (Auto) [place] # (Auto) Eos # (Auto) Baso # (Auto) Neutrophils % (Manual) Band Neutrophils % Lymphocytes % (Manual) Monocytes % (Manual) Eosinophils % (Manual) Myelocytes % Nucleated RBC % Platelet Estimate Large Platelets Hypochromasia (manual) Poikilocytosis (manual Basophilic Stippling Anisocytosis (manual) Tear Drop Cells Ovalocytes [place] Cells PT INR APTT Puncture Site Rradial pCO2 60 H pO2 90 HCO3 20.4 L ABG pH 7.19 L* ABG Total CO2 24.7 ABG O2 Saturation 96.1 ABG Base Excess -5.8 L ABG Hemoglobin 10.9 L ABG Carboxyhemoglobin 0.6 POC ABG HHb (Measured) 3.9 ABG Methemoglobin 0.5 [place] Test Pos ABG Potassium A-a O2 Difference 192.0 Respiratory Index 2.1 Hgb O2 Saturation 95.0 Glucose Lactate Vent Mode Mechanical Rate FiO2 50.0 Tidal Volume PEEP Crit Value Called To Dr. aviles Crit Value Called By Bryanna gonzalez rcp Crit Value Read Back Y Blood Gas Notified Time 2220 Sodium 129 L Potassium 6.1 H Chloride 97 L Carbon Dioxide 22 Anion Gap 17 BUN 114 H* Creatinine 5.1 H Est GFR ( Amer) 10 Est GFR (Non-Af Amer) 8 POC Glucose (mg/dL) 229 H Random Glucose 204 H Calcium 7.7 L Phosphorus Magnesium Total Bilirubin AST ALT Alkaline Phosphatase Total Protein Albumin Globulin Albumin/Globulin Ratio Arterial Blood Potassium Blood Type Antibody Screen 07/06/18 07/06/18 07/06/18 05:06 05:21 05:35 WBC RBC Hgb Hct MCV MCH MCHC RDW Plt Count MPV Neut % (Auto) Lymph % (Auto) [place] % (Auto) Eos % (Auto) Baso % (Auto) Neut # (Auto) Lymph # (Auto) [place] # (Auto) Eos # (Auto) Baso # (Auto) Neutrophils % (Manual) Band Neutrophils % Lymphocytes % (Manual) Monocytes % (Manual) Eosinophils % (Manual) Myelocytes % Nucleated RBC % Platelet Estimate Large Platelets Hypochromasia (manual) Poikilocytosis (manual Basophilic Stippling Anisocytosis (manual) Tear Drop Cells Ovalocytes [place] Cells PT INR APTT Puncture Site Rb pCO2 64 H pO2 123 H HCO3 21.7 ABG pH 7.20 L ABG Total CO2 27.0 ABG O2 Saturation 99.3 H ABG Base Excess -4.2 L ABG Hemoglobin ABG Carboxyhemoglobin POC ABG HHb (Measured) ABG Methemoglobin [place] Test Na ABG Potassium 5.2 A-a O2 Difference 439.0 Respiratory Index 3.6 Hgb O2 Saturation Glucose 308 H Lactate 1.0 Vent Mode Prvc Mechanical Rate 20 FiO2 90.0 Tidal Volume 400 PEEP 3 Crit Value Called To Crit Value Called By Crit Value Read Back Blood Gas Notified Time Sodium 132.0 133 Potassium 5.4 H Chloride 101.0 95 L Carbon Dioxide 25 Anion Gap 17 BUN 111 H* Creatinine 4.9 H Est GFR ( Amer) 10 Est GFR (Non-Af Amer) 8 POC Glucose (mg/dL) 309 H Random Glucose 293 H Calcium 7.5 L Phosphorus 7.6 H Magnesium 2.4 H Total Bilirubin 0.6 AST 44 H ALT 37 Alkaline Phosphatase 158 H Total Protein 5.5 L Albumin 2.8 L Globulin 2.7 Albumin/Globulin Ratio 1.0 Arterial Blood Potassium 5.2 Blood Type Antibody Screen 07/06/18 07/06/18 07/06/18 05:37 05:46 10:45 WBC 16.2 H RBC 2.55 L Hgb 7.1 L Hct 22.1 L MCV 86.8 MCH 27.9 MCHC 32.1 L RDW 17.7 H Plt Count 138 MPV 11.6 Neut % (Auto) 90.9 H Lymph % (Auto) 1.4 L [place] % (Auto) 6.0 Eos % (Auto) 0.4 Baso % (Auto) 1.3 Neut # (Auto) 14.7 H Lymph # (Auto) 0.2 L [place] # (Auto) 1.0 H Eos # (Auto) 0.1 Baso # (Auto) 0.2 Neutrophils % (Manual) 93 H Band Neutrophils % 1 Lymphocytes % (Manual) 1 L Monocytes % (Manual) 2 Eosinophils % (Manual) 1 Myelocytes % 2 H Nucleated RBC % 1 H Platelet Estimate Normal Large Platelets Present Hypochromasia (manual) Slight Poikilocytosis (manual Slight Basophilic Stippling Slight Anisocytosis (manual) Slight Tear Drop Cells Slight Ovalocytes Slight [place] Cells Slight PT INR APTT Puncture Site pCO2 pO2 HCO3 ABG pH ABG Total CO2 ABG O2 Saturation ABG Base Excess ABG Hemoglobin ABG Carboxyhemoglobin POC ABG HHb (Measured) ABG Methemoglobin [place] Test ABG Potassium A-a O2 Difference Respiratory Index Hgb O2 Saturation Glucose Lactate Vent Mode Mechanical Rate FiO2 Tidal Volume PEEP Crit Value Called To Crit Value Called By Crit Value Read Back Blood Gas Notified Time Sodium Potassium Chloride Carbon Dioxide Anion Gap BUN Creatinine Est GFR ( Amer) Est GFR (Non-Af Amer) POC Glucose (mg/dL) 253 H Random Glucose Calcium Phosphorus Magnesium Total Bilirubin AST ALT Alkaline Phosphatase Total Protein Albumin Globulin Albumin/Globulin Ratio Arterial Blood Potassium Blood Type A POSITIVE Antibody Screen Negative 07/06/18 07/06/18 07/06/18 10:51 11:00 11:38 WBC RBC Hgb Hct MCV MCH MCHC RDW Plt Count MPV Neut % (Auto) Lymph % (Auto) [place] % (Auto) Eos % (Auto) Baso % (Auto) Neut # (Auto) Lymph # (Auto) [place] # (Auto) Eos # (Auto) Baso # (Auto) Neutrophils % (Manual) Band Neutrophils % Lymphocytes % (Manual) Monocytes % (Manual) Eosinophils % (Manual) Myelocytes % Nucleated RBC % Platelet Estimate Large Platelets Hypochromasia (manual) Poikilocytosis (manual Basophilic Stippling Anisocytosis (manual) Tear Drop Cells Ovalocytes [place] Cells PT INR APTT Puncture Site Lfa pCO2 54 H pO2 89 HCO3 21.6 ABG pH 7.25 L ABG Total CO2 25.4 ABG O2 Saturation 98.5 H ABG Base Excess -4.2 L ABG Hemoglobin ABG Carboxyhemoglobin POC ABG HHb (Measured) ABG Methemoglobin [place] Test Na ABG Potassium 4.3 A-a O2 Difference 414.0 Respiratory Index 4.7 Hgb O2 Saturation Glucose 233 H Lactate 1.8 Vent Mode Prvc Mechanical Rate FiO2 80.0 Tidal Volume 400 PEEP 3 Crit Value Called To Crit Value Called By Crit Value Read Back Blood Gas Notified Time Sodium 136.0 134 Potassium 4.6 Chloride 103.0 96 L Carbon Dioxide 26 Anion Gap 16 BUN 105 H* Creatinine 4.6 H Est GFR ( Amer) 11 Est GFR (Non-Af Amer) 9 POC Glucose (mg/dL) 193 H Random Glucose 218 H Calcium 7.3 L Phosphorus Magnesium Total Bilirubin 0.9 AST 34 ALT 37 Alkaline Phosphatase 138 H Total Protein 5.2 L Albumin 2.5 L Globulin 2.7 Albumin/Globulin Ratio 0.9 L Arterial Blood Potassium 4.3 Blood Type Antibody Screen Radiology Impressions: Radiology Impressions Chest X-Ray 07/05/18 18:28 IMPRESSION: Large right pneumothorax and small left pneumothorax. Pneumomediastinum. Endotracheal tube and nasogastric tube. AICD. Extensive subcutaneous emphysema. Chest X-Ray 07/05/18 19:02 IMPRESSION: Right pleural drainage catheter. Decreased right pneumothorax. No left pneumothorax appreciated. Pneumomediastinum again noted. Extensive subcutaneous emphysema. ET tube, NG tube unchanged. New right subclavian central venous catheter. AICD. Extensive right-sided opacity at left mid/basilar pulmonary opacity. Possible pneumonia. Chest X-Ray 07/05/18 22:30 IMPRESSION: Removal of right pleural catheter. Large right pneumothorax. Pneumomediastinum. Markedly increased diffuse subcutaneous emphysema about the neck chest and abdomen. Removal of right subclavian central venous catheter. Diffuse right-sided pulmonary opacity and left mid and lower lung opacity. AICD. ET tube and NG tube. Chest X-Ray 07/05/18 23:30 IMPRESSION: New right chest tube. Resolved right pneumothorax. Increasing pneumomediastinum. Cannot rule out pneumopericardium. No left pneumothorax. New right subclavian central venous catheter. Extensive subcutaneous emphysema about the neck chest and abdomen. The preliminary findings for this examination were reported by [facility] Rad[facility] at 12:37 a.m. on 07/06/2018. There is concurrence of this report with the preliminary findings. Chest X-Ray 07/06/18 04:00 IMPRESSION: Small right pneumothorax. No left pneumothorax. Pneumomediastinum/pneumopericardium. Subcutaneous emphysema. Lines and tubes unchanged. Assessment/Plan (1) Acute respiratory failure with hypoxia Current Visit: Yes Status: Acute (2) CHF exacerbation Current Visit: Yes Status: Acute (3) COPD exacerbation Current Visit: Yes Status: Acute (4) Cardiomyopathy Current Visit: No Status: Acute (5) Pneumonia Current Visit: No Status: Acute Attending/Attestation - Attestation I have personally seen and examined this patient.: Yes I have fully participated in the care of the patient.: Yes I have reviewed all pertinent clinical information: Yes Notes (Text): 07/06/18 17:34 patient seen and examined in the intensive care unit. On ventilatory support with elevated peak pressure and FiO2 100% Chest tube in place for right pneumothorax Improving subcutaneous emphysema Hypotensive on Levophed, transfuse 1 unit packed RBCs Bicarbonate drip for metabolic acidosis Continue IV antibiotics Elevated BUN/creatinine and not candidate for dialysis because of hypotension Case discussed with family at length and does not want dialysis or other aggressive intervention Palliative consult Prognosis poor
--- NOTE | 2018-07-06 08:55 | RAD ---
Date of service: 07/05/2018 HISTORY: chest tube COMPARISON: 07/05/2018 at 6:54 p.m. FINDINGS: LUNGS: Extensive right-sided opacity. Left basilar opacity. PLEURA: Markedly decreased right pneumothorax status post insertion of right pleural pigtail catheter. There is no coil of the pigtail within the pleural space on this examination, however. There is no definite left pneumothorax seen on this examination. Pneumomediastinum persists. Extensive right-sided subcutaneous emphysema seen over the chest and neck. CARDIOVASCULAR: Normal heart size. ET tube appropriately positioned approximately 3.3 cm above the tracheal kesha. Nasogastric tube noted. Right subclavian central venous catheter noted. AICD noted. OSSEOUS STRUCTURES: No significant abnormalities. VISUALIZED UPPER ABDOMEN: Normal. OTHER FINDINGS: None. IMPRESSION: Right pleural drainage catheter. Decreased right pneumothorax. No left pneumothorax appreciated. Pneumomediastinum again noted. Extensive subcutaneous emphysema. ET tube, NG tube unchanged. New right subclavian central venous catheter. AICD. Extensive right-sided opacity at left mid/basilar pulmonary opacity. Possible pneumonia.
--- NOTE | 2018-07-06 09:00 | RAD ---
Date of service: 07/05/2018 HISTORY: vent sub q emphysema COMPARISON: 07/05/2018 at 10:03 p.m. FINDINGS: LUNGS: Diffuse opacity of right lung. Opacity mid and lower left lung. No significant change. It comparison is limited. PLEURA: Recurrent large right pneumothorax. No definite left pneumothorax. Right pleural pigtail catheter is seen coiled within the subcutaneous soft tissues of the right lateral chest wall, approximatelyl 5.4 cm lateral to the ribs... Pneumomediastinum persists. Markedly increased subcutaneous emphysema about the entire chest wall and neck extending over the abdominal wall, circumferentially. CARDIOVASCULAR: Normal heart size. ET tube and NG tube unchanged. Right subclavian central venous catheter has been removed. No pulmonary vascular congestion. OSSEOUS STRUCTURES: No significant abnormalities. VISUALIZED UPPER ABDOMEN: Normal. OTHER FINDINGS: None. IMPRESSION: Removal of right pleural catheter. Large right pneumothorax. Pneumomediastinum. Markedly increased diffuse subcutaneous emphysema about the neck chest and abdomen. Removal of right subclavian central venous catheter. Diffuse right-sided pulmonary opacity and left mid and lower lung opacity. AICD. ET tube and NG tube.
--- NOTE | 2018-07-06 09:05 | RAD ---
Date of service: 07/05/2018 HISTORY: Right CT placement COMPARISON: 07/05/2018 at 10:38 p.m. FINDINGS: LUNGS: Diffuse increased opacity of right lung. Opacity in mid and lower left lung. Possible pneumonia. PLEURA: New right pleural pigtail catheter inserted, tip seen at right lung base. No residual right pneumothorax. There is increasing pneumomediastinum. Cannot rule out pneumopericardium. No left pneumothorax. Extensive subcutaneous emphysema seen circumferentially about the neck chest and abdomen. CARDIOVASCULAR: No aortic atherosclerotic calcification present. Normal heart size. ET tube and NG tube unchanged. New right subclavian central venous catheter noted. No pulmonary vascular congestion. OSSEOUS STRUCTURES: No significant abnormalities. VISUALIZED UPPER ABDOMEN: Normal. OTHER FINDINGS: None. IMPRESSION: New right chest tube. Resolved right pneumothorax. Increasing pneumomediastinum. Cannot rule out pneumopericardium. No left pneumothorax. New right subclavian central venous catheter. Extensive subcutaneous emphysema about the neck chest and abdomen. The preliminary findings for this examination were reported by [facility] Radiology at 12:37 a.m. on 07/06/2018. There is concurrence of this report with the preliminary findings.
--- NOTE | 2018-07-06 09:08 | RAD ---
Date of service: 07/06/2018 HISTORY: chest tube COMPARISON: 07/05/2018 at 11:36 p.m. FINDINGS: LUNGS: Extensive opacity of right lung. Opacity mid and lower left lung. PLEURA: Small right pneumothorax again visualized. No definite left pneumothorax. Pneumomediastinum and possible pneumopericardium. Right chest tube again identified at lung base. Extensive subcutaneous emphysema seen about neck chest and abdomen circumferentially. CARDIOVASCULAR: No aortic atherosclerotic calcification present. Normal heart size. ET tube, NG tube, right subclavian central venous catheter and AICD are all grossly unchanged. No pulmonary vascular congestion. OSSEOUS STRUCTURES: No significant abnormalities. VISUALIZED UPPER ABDOMEN: Normal. OTHER FINDINGS: None. IMPRESSION: Small right pneumothorax. No left pneumothorax. Pneumomediastinum/pneumopericardium. Subcutaneous emphysema. Lines and tubes unchanged.
[2018-07-06] MEDS: Sacubitril/Valsartan 49-51 Tab PO SCH ×2 (10:20→17:41)
[2018-07-06] MEDS: Ranolazine 500 mg Extended Release Tablets PO SCH ×2 (10:21→17:42)
[2018-07-06 10:54] LABS: ARTERIAL BLOOD GAS HCO3 21.6 mmol/L (21-28); ARTERIAL BLOOD GAS O2 SAT 98.5 % (95-98); ARTERIAL BLOOD GAS PCO2 54 mm/Hg (35-45); ARTERIAL BLOOD GAS PH 7.25 (7.35-7.45); ARTERIAL BLOOD GAS PO2 89 mm/Hg (80-100); ARTERIAL BLOOD GAS TCO2 25.4 mmol/L (22-28)
[2018-07-06 11:22] LABS: ALB/GLOB RATIO 0.9 (1.0-2.1); ALBUMIN 2.5 g/dL (3.5-5.0); CALCIUM 7.3 mg/dl (8.6-10.4)
--- NOTE | 2018-07-06 12:56 | CP.PCM.CON ---
History of Present Illness - History of Present Illness History of Present Illness: Palliative consult called by Doctor Oriana for goals of care discussion and family support Patient is a 87 yo female admitted on 06/23/2018 with SOB and cough X 2 days. CXR showed mild CHF. In ED Lasix and Neb. Tx given with improvement. Patient was placed on Maxipime, Zyvox and Lasix IV. However, despite all these prudent interventions , patient's condition has worsened and required BiPap support with possibility to need Mv support. As per notes, family discussed End of life care and agreed to respect patient's wishes against aggressive interventions, including CPR and MV support. Last night patient's condition got even more complex with the need for immediate intubation due to respiratory distress. At that time, family decided to rescind the DNR/DNI and make patient a Full Code with hope for recovery. Unfortunately, patient underwent multi organ failure with no urine output. Palliative care was asked to revisit goals of care. PMH: COPD, CAD, LED stent, EF 20%, asthma, TIA Soc. Hx: , lives at home Fam. Hx: Unknown at this time Review of Systems - Review of Systems All systems: reviewed and no additional remarkable complaints except Review of Systems: ROS unobtainable from patient due to intubation and sedation. ROS obtained from nursing. Per nursing, patient had no output since last night. Past Patient History - Infectious Disease Hx of Infectious Diseases: None - Tetanus Immunizations Tetanus Immunization: Unknown - Past Medical History & Family History Past Medical History?: Yes - Past Social History Smoking Status: Never Smoked - CARDIAC Hx Cardiac Disorders: Yes (CAD) Hx Hypercholesterolemia: Yes - PULMONARY Hx Chronic Obstructive Pulmonary Disease (COPD): Yes - NEUROLOGICAL Hx Transient Ischemic Attacks (TIA): Yes - HEENT Hx HEENT Problems: No - RENAL Hx Chronic Kidney Disease: No - ENDOCRINE/METABOLIC Hx Diabetes Mellitus Type 2: Yes - HEMATOLOGICAL/ONCOLOGICAL Hx Anemia: Yes - INTEGUMENTARY Hx Dermatological Problems: No - MUSCULOSKELETAL/RHEUMATOLOGICAL Hx Arthritis: Yes Hx Falls: No - GASTROINTESTINAL Hx Gastrointestinal Disorders: No - GENITOURINARY/GYNECOLOGICAL Hx Genitourinary Disorders: No - PSYCHIATRIC Hx Anxiety: Yes Hx Substance Use: No - SURGICAL HISTORY Hx Appendectomy: Yes Hx Coronary Stent: Yes - ANESTHESIA Hx Anesthesia: Yes Hx Anesthesia Reactions: No Hx Malignant Hyperthermia: No Meds Allergies/Adverse Reactions: Allergies Allergy/AdvReac Type Severity Reaction Status Date / Time clopidogrel Allergy Mild SWELLING Verified 12/22/17 13:34 - Medications Medications: Current Medications Albuterol Sulfate (Albuterol 0.042% Inhal Bell (1.25mg/3ml) Ud) 1.25 mg INH RQ2 PRN PRN Reason: Wheezing Albuterol/Ipratropium (Duoneb 3 Mg/0.5 Mg (3 Ml) Ud) 3 ml INH RQ6 JONNA Last Admin: 07/06/18 07:47 Dose: 3 ml Calcium Acetate (Phoslo) 667 mg PO BIDCC JONNA Last Admin: 07/06/18 10:19 Dose: 667 mg Ergocalciferol (Drisdol 50,000 Intl Units Cap) 1 cap PO QWK JONNA Last Admin: 06/30/18 09:38 Dose: 1 cap Furosemide (Lasix) 20 mg IVP DAILY JONNA Last Admin: 07/06/18 10:20 Dose: Not Given Cefepime HCl 0.5 gm/ Dextrose 50 mls @ 100 mls/hr IVPB Q24H JONNA; Protocol Last Admin: 07/06/18 10:28 Dose: 100 mls/hr Linezolid (Zyvox 600mg/300ml D5w) 600 mg in 300 mls @ 200 mls/hr IVPB Q12H JONNA; Protocol Last Admin: 07/06/18 00:26 Dose: 200 mls/hr Dobutamine HCl/Dextrose (Dobutamine/Dextrose 5% 500mg/250ml) 500 mg in 250 mls @ 7.076 mls/hr IV .Q24H JONNA; Protocol Last Admin: 07/06/18 02:01 Dose: 7.076 mls/hr Dexmedetomidine HCl 200 mcg/ (Sodium Chloride) 50 mls @ 2.34 mls/hr IV TITR PRN ; Protocol PRN Reason: Sedation Last Admin: 07/06/18 10:18 Dose: 1.49 mcg/kg/hr, 17.5 mls/hr Norepinephrine Bitartrate 4 mg (/ Sodium Chloride) 254 mls @ 15.24 mls/hr IV .[id number] PRN; Protocol PRN Reason: TITRATE PER MD ORDER Last Titration: 07/06/18 11:35 Dose: 6 mcg/min, 22.86 mls/hr Sodium Bicarbonate 100 meq/ (Sodium Chloride) 1,100 mls @ 100 mls/hr IV .Q11H [facility] Last Admin: 07/06/18 02:25 Dose: 100 mls/hr Amino Acids (Clinimix 4.25/5 % "E" (1000 Ml)) 1,000 mls @ 50 mls/hr IV .Q20H [facility] Stop: 07/07/18 18:00 Insulin Human Regular (Novolin R) 0 unit SC Q6H [facility]; Protocol Last Admin: 07/06/18 12:37 Dose: 2 u Metoprolol Tartrate (Lopressor) 25 mg PO BID [facility] Last Admin: 07/06/18 10:20 Dose: Not Given Montelukast Sodium (Singulair) 10 mg PO DAILY [facility] Last Admin: 07/06/18 10:19 Dose: 10 mg Morphine Sulfate (Morphine) 2 mg IVP Q4 PRN PRN Reason: Anxiety Last Admin: 07/05/18 13:16 Dose: 2 mg Pantoprazole Sodium (Protonix Inj) 40 mg IVP DAILY [facility] Last Admin: 07/06/18 10:13 Dose: 40 mg Ranolazine (Ranexa) 500 mg PO BID [facility] Last Admin: 07/06/18 10:21 Dose: Not Given Repaglinide (Prandin) 2 mg PO DAILY [facility] Last Admin: 07/06/18 10:21 Dose: Not Given Roflumilast (Daliresp) 500 mcg PO DAILY [facility] Last Admin: 07/01/18 10:27 Dose: 500 mcg Rosuvastatin Calcium (Crestor) 20 mg PO HS [facility] Last Admin: 07/05/18 21:40 Dose: Not Given Sacubitril/Valsartan (Entresto 49 Mg-51 Mg) 1 tab PO BID [facility] Last Admin: 07/06/18 10:20 Dose: Not Given Physical Exam - Constitutional Appears: In Acute Distress, Chronically Ill - Head Exam Head Exam: ATRAUMATIC, NORMAL INSPECTION, NORMOCEPHALIC - Eye Exam Eye Exam: EOMI, Normal appearance, PERRL Pupil Exam: NORMAL ACCOMODATION, PERRL - ENT Exam Additional comments: ETT - Neck Exam Neck exam: Positive for: Normal Inspection - Respiratory Exam Additional comments: On MV support - Cardiovascular Exam Cardiovascular Exam: Tachycardia - GI/Abdominal Exam GI & Abdominal Exam: Hypoactive Bowel Sounds, Soft - Rectal Exam Rectal Exam: Deferred - Exam Additional comments: anuria - Extremities Exam Extremities exam: Positive for: pedal edema - Back Exam Back exam: NORMAL INSPECTION - Neurological Exam Neurological exam: Motor Sensory Deficit - Psychiatric Exam Psychiatric exam: Flat Affect - Skin Skin Exam: Pallor Results - Vital Signs Recent Vital Signs: Last Vital Signs Temp 97.0 F L 07/06/18 12:36 Pulse 106 H 07/06/18 12:36 Resp 24 07/06/18 12:36 BP 112/44 L 07/06/18 12:36 Pulse Ox 100 07/06/18 12:33 - Labs Result Diagrams: 07/06/18 05:37 07/06/18 11:00 Labs: Laboratory Results - last 24 hr 07/05/18 07/05/18 07/05/18 00:38 17:14 20:53 WBC 21.6 H D RBC 2.71 L Hgb 7.4 L Hct 23.7 L MCV 87.4 MCH 27.4 MCHC 31.3 L RDW 17.4 H Plt Count 150 MPV 10.6 Neut % (Auto) 91.3 H Lymph % (Auto) 0.8 L Mcdowell % (Auto) 7.4 Eos % (Auto) 0.2 Baso % (Auto) 0.3 Neut # (Auto) 19.7 H Lymph # (Auto) 0.2 L Mcdowell # (Auto) 1.6 H Eos # (Auto) 0.0 Baso # (Auto) 0.1 Neutrophils % (Manual) 89 H Band Neutrophils % Lymphocytes % (Manual) 1 L Monocytes % (Manual) 8 Eosinophils % (Manual) 2 Myelocytes % Nucleated RBC % Platelet Estimate Normal Large Platelets Present Hypochromasia (manual) Slight Poikilocytosis (manual Slight Basophilic Stippling Slight Anisocytosis (manual) Slight Tear Drop Cells Slight Ovalocytes Slight Hewitt Cells Slight PT INR APTT Puncture Site Rb pCO2 64 H pO2 147 H HCO3 18.5 L ABG pH 7.12 L* ABG Total CO2 22.8 ABG O2 Saturation 99.3 H ABG Base Excess -8.2 L ABG Hemoglobin 7.3 L ABG Carboxyhemoglobin 1.8 H POC ABG HHb (Measured) 0.7 ABG Methemoglobin 1.4 Candido Test Na ABG Potassium A-a O2 Difference 486.0 Respiratory Index 3.3 Hgb O2 Saturation 96.2 Glucose Lactate Vent Mode Prvc Mechanical Rate 20 FiO2 100.0 Tidal Volume 360 PEEP 3 Crit Value Called To Dr. aviles Crit Value Called By Cuong numerical control operator Crit Value Read Back Y Blood Gas Notified Time 119 Sodium Potassium Chloride Carbon Dioxide Anion Gap BUN Creatinine Est GFR ( Amer) Est GFR (Non-Af Amer) POC Glucose (mg/dL) 283 H Random Glucose Calcium Phosphorus Magnesium Total Bilirubin AST ALT Alkaline Phosphatase Total Protein Albumin Globulin Albumin/Globulin Ratio Arterial Blood Potassium Blood Type Antibody Screen 07/05/18 07/05/18 07/05/18 20:53 20:53 21:00 WBC RBC Hgb Hct MCV MCH MCHC RDW Plt Count MPV Neut % (Auto) Lymph % (Auto) Mcdowell % (Auto) Eos % (Auto) Baso % (Auto) Neut # (Auto) Lymph # (Auto) Mcdowell # (Auto) Eos # (Auto) Baso # (Auto) Neutrophils % (Manual) Band Neutrophils % Lymphocytes % (Manual) Monocytes % (Manual) Eosinophils % (Manual) Myelocytes % Nucleated RBC % Platelet Estimate Large Platelets Hypochromasia (manual) Poikilocytosis (manual Basophilic Stippling Anisocytosis (manual) Tear Drop Cells Ovalocytes Chyna Cells PT 14.0 H INR 1.3 APTT 30 Puncture Site Lfem pCO2 71 H* pO2 53 L HCO3 14.9 L ABG pH 7.05 L* ABG Total CO2 21.8 L ABG O2 Saturation 88.8 L ABG Base Excess -11.9 L ABG Hemoglobin ABG Carboxyhemoglobin POC ABG HHb (Measured) ABG Methemoglobin Candido Test Neg ABG Potassium 6.5 H* A-a O2 Difference 571.0 Respiratory Index 10.8 Hgb O2 Saturation Glucose 261 H Lactate 1.4 Vent Mode Prvc Mechanical Rate 12 FiO2 100.0 Tidal Volume 360 PEEP 3 Crit Value Called To Dr. aviles Crit Value Called By Bryanna gonzalez rcp Crit Value Read Back Y Blood Gas Notified Time 2111 Sodium 128 L 129.0 L Potassium 6.6 H* D Chloride 97 L 101.0 Carbon Dioxide 19 L Anion Gap 18 BUN 112 H* D Creatinine 4.9 H Est GFR ( Amer) 10 Est GFR (Non-Af Amer) 8 POC Glucose (mg/dL) Random Glucose 245 H Calcium 7.8 L Phosphorus 8.3 H Magnesium 2.6 H Total Bilirubin 0.8 AST 55 H ALT 39 Alkaline Phosphatase 163 H Total Protein 5.9 L Albumin 3.1 L Globulin 2.8 Albumin/Globulin Ratio 1.1 Arterial Blood Potassium 6.5 H* Blood Type Antibody Screen 07/05/18 07/05/18 07/06/18 22:05 23:58 00:37 WBC RBC Hgb Hct MCV MCH MCHC RDW Plt Count MPV Neut % (Auto) Lymph % (Auto) Mcdowell % (Auto) Eos % (Auto) Baso % (Auto) Neut # (Auto) Lymph # (Auto) Mcdowell # (Auto) Eos # (Auto) Baso # (Auto) Neutrophils % (Manual) Band Neutrophils % Lymphocytes % (Manual) Monocytes % (Manual) Eosinophils % (Manual) Myelocytes % Nucleated RBC % Platelet Estimate Large Platelets Hypochromasia (manual) Poikilocytosis (manual Basophilic Stippling Anisocytosis (manual) Tear Drop Cells Ovalocytes Chyna Cells PT INR APTT Puncture Site Rradial pCO2 60 H pO2 90 HCO3 20.4 L ABG pH 7.19 L* ABG Total CO2 24.7 ABG O2 Saturation 96.1 ABG Base Excess -5.8 L ABG Hemoglobin 10.9 L ABG Carboxyhemoglobin 0.6 POC ABG HHb (Measured) 3.9 ABG Methemoglobin 0.5 Candido Test Pos ABG Potassium A-a O2 Difference 192.0 Respiratory Index 2.1 Hgb O2 Saturation 95.0 Glucose Lactate Vent Mode Mechanical Rate FiO2 50.0 Tidal Volume PEEP Crit Value Called To Dr. aviles Crit Value Called By Bryanna gonzalez rcp Crit Value Read Back Y Blood Gas Notified Time 2220 Sodium 129 L Potassium 6.1 H Chloride 97 L Carbon Dioxide 22 Anion Gap 17 BUN 114 H* Creatinine 5.1 H Est GFR ( Amer) 10 Est GFR (Non-Af Amer) 8 POC Glucose (mg/dL) 229 H Random Glucose 204 H Calcium 7.7 L Phosphorus Magnesium Total Bilirubin AST ALT Alkaline Phosphatase Total Protein Albumin Globulin Albumin/Globulin Ratio Arterial Blood Potassium Blood Type Antibody Screen 07/06/18 07/06/18 07/06/18 05:06 05:21 05:35 WBC RBC Hgb Hct MCV MCH MCHC RDW Plt Count MPV Neut % (Auto) Lymph % (Auto) Mcdowell % (Auto) Eos % (Auto) Baso % (Auto) Neut # (Auto) Lymph # (Auto) Mcdowell # (Auto) Eos # (Auto) Baso # (Auto) Neutrophils % (Manual) Band Neutrophils % Lymphocytes % (Manual) Monocytes % (Manual) Eosinophils % (Manual) Myelocytes % Nucleated RBC % Platelet Estimate Large Platelets Hypochromasia (manual) Poikilocytosis (manual Basophilic Stippling Anisocytosis (manual) Tear Drop Cells Ovalocytes Hewitt Cells PT INR APTT Puncture Site Rb pCO2 64 H pO2 123 H HCO3 21.7 ABG pH 7.20 L ABG Total CO2 27.0 ABG O2 Saturation 99.3 H ABG Base Excess -4.2 L ABG Hemoglobin ABG Carboxyhemoglobin POC ABG HHb (Measured) ABG Methemoglobin Candido Test Na ABG Potassium 5.2 A-a O2 Difference 439.0 Respiratory Index 3.6 Hgb O2 Saturation Glucose 308 H Lactate 1.0 Vent Mode Prvc Mechanical Rate 20 FiO2 90.0 Tidal Volume 400 PEEP 3 Crit Value Called To Crit Value Called By Crit Value Read Back Blood Gas Notified Time Sodium 132.0 133 Potassium 5.4 H Chloride 101.0 95 L Carbon Dioxide 25 Anion Gap 17 BUN 111 H* Creatinine 4.9 H Est GFR ( Amer) 10 Est GFR (Non-Af Amer) 8 POC Glucose (mg/dL) 309 H Random Glucose 293 H Calcium 7.5 L Phosphorus 7.6 H Magnesium 2.4 H Total Bilirubin 0.6 AST 44 H ALT 37 Alkaline Phosphatase 158 H Total Protein 5.5 L Albumin 2.8 L Globulin 2.7 Albumin/Globulin Ratio 1.0 Arterial Blood Potassium 5.2 Blood Type Antibody Screen 07/06/18 07/06/18 07/06/18 05:37 05:46 10:51 WBC 16.2 H RBC 2.55 L Hgb 7.1 L Hct 22.1 L MCV 86.8 MCH 27.9 MCHC 32.1 L RDW 17.7 H Plt Count 138 MPV 11.6 Neut % (Auto) 90.9 H Lymph % (Auto) 1.4 L Mcdowell % (Auto) 6.0 Eos % (Auto) 0.4 Baso % (Auto) 1.3 Neut # (Auto) 14.7 H Lymph # (Auto) 0.2 L Mcdowell # (Auto) 1.0 H Eos # (Auto) 0.1 Baso # (Auto) 0.2 Neutrophils % (Manual) 93 H Band Neutrophils % 1 Lymphocytes % (Manual) 1 L Monocytes % (Manual) 2 Eosinophils % (Manual) 1 Myelocytes % 2 H Nucleated RBC % 1 H Platelet Estimate Normal Large Platelets Present Hypochromasia (manual) Slight Poikilocytosis (manual Slight Basophilic Stippling Slight Anisocytosis (manual) Slight Tear Drop Cells Slight Ovalocytes Slight Hewitt Cells Slight PT INR APTT Puncture Site Lfa pCO2 54 H pO2 89 HCO3 21.6 ABG pH 7.25 L ABG Total CO2 25.4 ABG O2 Saturation 98.5 H ABG Base Excess -4.2 L ABG Hemoglobin ABG Carboxyhemoglobin POC ABG HHb (Measured) ABG Methemoglobin Candido Test Na ABG Potassium 4.3 A-a O2 Difference 414.0 Respiratory Index 4.7 Hgb O2 Saturation Glucose 233 H Lactate 1.8 Vent Mode Prvc Mechanical Rate FiO2 80.0 Tidal Volume 400 PEEP 3 Crit Value Called To Crit Value Called By Crit Value Read Back Blood Gas Notified Time Sodium 136.0 Potassium Chloride 103.0 Carbon Dioxide Anion Gap BUN Creatinine Est GFR ( Amer) Est GFR (Non-Af Amer) POC Glucose (mg/dL) Random Glucose Calcium Phosphorus Magnesium Total Bilirubin AST ALT Alkaline Phosphatase Total Protein Albumin Globulin Albumin/Globulin Ratio Arterial Blood Potassium 4.3 Blood Type A POSITIVE Antibody Screen Negative 07/06/18 07/06/18 11:00 11:38 WBC RBC Hgb Hct MCV MCH MCHC RDW Plt Count MPV Neut % (Auto) Lymph % (Auto) Mcdowell % (Auto) Eos % (Auto) Baso % (Auto) Neut # (Auto) Lymph # (Auto) Mcdowell # (Auto) Eos # (Auto) Baso # (Auto) Neutrophils % (Manual) Band Neutrophils % Lymphocytes % (Manual) Monocytes % (Manual) Eosinophils % (Manual) Myelocytes % Nucleated RBC % Platelet Estimate Large Platelets Hypochromasia (manual) Poikilocytosis (manual Basophilic Stippling Anisocytosis (manual) Tear Drop Cells Ovalocytes Chyna Cells PT INR APTT Puncture Site pCO2 pO2 HCO3 ABG pH ABG Total CO2 ABG O2 Saturation ABG Base Excess ABG Hemoglobin ABG Carboxyhemoglobin POC ABG HHb (Measured) ABG Methemoglobin Candido Test ABG Potassium A-a O2 Difference Respiratory Index Hgb O2 Saturation Glucose Lactate Vent Mode Mechanical Rate FiO2 Tidal Volume PEEP Crit Value Called To Crit Value Called By Crit Value Read Back Blood Gas Notified Time Sodium 134 Potassium 4.6 Chloride 96 L Carbon Dioxide 26 Anion Gap 16 BUN 105 H* Creatinine 4.6 H Est GFR ( Amer) 11 Est GFR (Non-Af Amer) 9 POC Glucose (mg/dL) 193 H Random Glucose 218 H Calcium 7.3 L Phosphorus Magnesium Total Bilirubin 0.9 AST 34 ALT 37 Alkaline Phosphatase 138 H Total Protein 5.2 L Albumin 2.5 L Globulin 2.7 Albumin/Globulin Ratio 0.9 L Arterial Blood Potassium Blood Type Antibody Screen Assessment & Plan - Assessment and Plan (Free Text) Assessment: Palliative consult Full Code, POLST on chart rescinded by the family, PPS 10% I reviewed Medical records, all diagnostic studies, examined patient in the bed. Patient is intubated, on Precedx, unresponsive to stimuli. Skin pale. Respirations fully supported by MV. ABG gasses abnormal. Pneumothorax partially resolved with chest tube.Abdomen softly distended. There is no urine output since last night. BUN 105, Plaster Caster 4.0. There is no active ROM to any extremities. ICU team is concerned with multi organ failure where further aggressive interventions are not any longer beneficial for the patent. I spoke to patient's Mr. Ventura over the phone at 1 pm. He said he and the rest of the family would come in 1 hr for a family meeting. 2 PM Family meeting attended by patient's , daughter in law and two other family members. Doctor Malik discussed patient's critical clinical condition. The who is mostly Bahraini speaking needed assistance with translation. Doctor Malik explained that there was multi organ failure and prognosis was grave. had difficulties accepting the poor prognosis and was asking for reassurance if his would improve " by tomorrow". Wit family and present I reviewed again the critical condition of the patient. I encourage to spend as much time as he wishes with the and advised family to allow enough time toabsorb all these informations. Impression * Chronically ill lady in acute respiratory distress * Multi organ failure * Anuria * Grave prognosis * has difficulties accepting the poor prognosis * Spiritual distress Suggestions * Continue supportive care * Pastoral visit for spiritual support to a and family * Consider promotion of natural as patient is not responding to current medical interventions * Patient should be DNr DNI Palliative care will remain on board for support Advance care planing 46 min
--- NOTE | 2018-07-06 13:15 | CP.PCM.CON ---
History of Present Illness - History of Present Illness History of Present Illness: consult for oligoanuric ERLIN 87 yo H female with systolic ischemic cardiomyopathy with stent and AICD, COPD, DM, presented 2 weeks ago with increased sob. Pt treated for decompensated heart failure and COPD exacerbation. Treated with diuretics and steroids. Also received AB for pseudomonas in sputum. Course notable for worsening mental status and need for bipap. Pt with severe hypotension, on entresto and other medicines. Pt made DNR/DNI, but it was rescinded yesterday with increased dyspnea. Pt required intubation. Noted to have right pneumothorax, s/p chest tube. Presently on 2 pressors, 80%FIO2 on vent. Pt with oligoanuria and rising BUN and creatinine at this time. Pt with normal creatinine on admission. No family present at this time. Review of Systems - Review of Systems Systems not reviewed;Unavailable: Intubated Past Patient History - Infectious Disease Hx of Infectious Diseases: None - Tetanus Immunizations Tetanus Immunization: Unknown - Past Medical History & Family History Past Medical History?: Yes - Past Social History Smoking Status: Never Smoked - CARDIAC Hx Cardiac Disorders: Yes (CAD) Hx Hypercholesterolemia: Yes - PULMONARY Hx Chronic Obstructive Pulmonary Disease (COPD): Yes - NEUROLOGICAL Hx Transient Ischemic Attacks (TIA): Yes - HEENT Hx HEENT Problems: No - RENAL Hx Chronic Kidney Disease: No - ENDOCRINE/METABOLIC Hx Diabetes Mellitus Type 2: Yes - HEMATOLOGICAL/ONCOLOGICAL Hx Anemia: Yes - INTEGUMENTARY Hx Dermatological Problems: No - MUSCULOSKELETAL/RHEUMATOLOGICAL Hx Arthritis: Yes Hx Falls: No - GASTROINTESTINAL Hx Gastrointestinal Disorders: No - GENITOURINARY/GYNECOLOGICAL Hx Genitourinary Disorders: No - PSYCHIATRIC Hx Anxiety: Yes Hx Substance Use: No - SURGICAL HISTORY Hx Appendectomy: Yes Hx Coronary Stent: Yes - ANESTHESIA Hx Anesthesia: Yes Hx Anesthesia Reactions: No Hx Malignant Hyperthermia: No Meds Allergies/Adverse Reactions: Allergies Allergy/AdvReac Type Severity Reaction Status Date / Time clopidogrel Allergy Mild SWELLING Verified 12/22/17 13:34 - Medications Medications: Current Medications Albuterol Sulfate (Albuterol 0.042% Inhal Bell (1.25mg/3ml) Ud) 1.25 mg INH RQ2 PRN PRN Reason: Wheezing Albuterol/Ipratropium (Duoneb 3 Mg/0.5 Mg (3 Ml) Ud) 3 ml INH RQ6 JONNA Last Admin: 07/06/18 07:47 Dose: 3 ml Calcium Acetate (Phoslo) 667 mg PO BIDCC JONNA Last Admin: 07/06/18 10:19 Dose: 667 mg Ergocalciferol (Drisdol 50,000 Intl Units Cap) 1 cap PO QWK JONNA Last Admin: 06/30/18 09:38 Dose: 1 cap Furosemide (Lasix) 20 mg IVP DAILY [facility] [place] Last Admin: 07/06/18 10:20 Dose: Not Given Cefepime HCl 0.5 gm/ Dextrose 50 mls @ 100 mls/hr IVPB Q24H JONNA; Protocol Last Admin: 07/06/18 10:28 Dose: 100 mls/hr Linezolid (Zyvox 600mg/300ml D5w) 600 mg in 300 mls @ 200 mls/hr IVPB Q12H JONNA; Protocol Last Admin: 07/06/18 00:26 Dose: 200 mls/hr Dobutamine HCl/Dextrose (Dobutamine/Dextrose 5% 500mg/250ml) 500 mg in 250 mls @ 7.076 mls/hr IV .Q24H JONNA; Protocol Last Admin: 07/06/18 02:01 Dose: 7.076 mls/hr Dexmedetomidine HCl 200 mcg/ (Sodium Chloride) 50 mls @ 2.34 mls/hr IV TITR PRN; Protocol PRN Reason: Sedation Last Admin: 07/06/18 10:18 Dose: 1.49 mcg/kg/hr, 17.5 mls/hr Norepinephrine Bitartrate 4 mg (/ Sodium Chloride) 254 mls @ 15.24 mls/hr IV .[id number] PRN; Protocol PRN Reason: TITRATE PER MD ORDER Last Titration: 07/06/18 11:35 Dose: 6 mcg/min, 22.86 mls/hr Sodium Bicarbonate 100 meq/ (Sodium Chloride) 1,100 mls @ 100 mls/hr IV .Q11H JONNA Last Admin: 07/06/18 02:25 Dose: 100 mls/hr Amino Acids (Clinimix 4.25/5 % "E" (1000 Ml)) 1,000 mls @ 50 mls/hr IV .Q20H JONNA Stop: 07/07/18 18:00 Insulin Human Regular (Novolin R) 0 unit SC Q6H JONNA; Protocol Last Admin: 07/06/18 12:37 Dose: 2 u Metoprolol Tartrate (Lopressor) 25 mg PO BID [facility] [place] Last Admin: 07/06/18 10:20 Dose: Not Given Montelukast Sodium (Singulair) 10 mg PO DAILY [facility] [place] Last Admin: 07/06/18 10:19 Dose: 10 mg Morphine Sulfate (Morphine) 2 mg IVP Q4 PRN PRN Reason: Anxiety Last Admin: 07/05/18 13:16 Dose: 2 mg Pantoprazole Sodium (Protonix Inj) 40 mg IVP DAILY [facility] [place] Last Admin: 07/06/18 10:13 Dose: 40 mg Ranolazine (Ranexa) 500 mg PO BID [facility] [place] Last Admin: 07/06/18 10:21 Dose: Not Given Repaglinide (Prandin) 2 mg PO DAILY [facility] [place] Last Admin: 07/06/18 10:21 Dose: Not Given Roflumilast (Daliresp) 500 mcg PO DAILY [facility] [place] Last Admin: 07/01/18 10:27 Dose: 500 mcg Rosuvastatin Calcium (Crestor) 20 mg PO HS [facility] [place] Last Admin: 07/05/18 21:40 Dose: Not Given Sacubitril/Valsartan (Entresto 49 Mg-51 Mg) 1 tab PO BID [facility] [place] Last Admin: 07/06/18 10:20 Dose: Not Given Physical Exam - Constitutional Appears: In Acute Distress Additional comments: intubated, grimaces to pain - Neck Exam Neck exam: Negative for: Lymphadenopathy - Respiratory Exam Respiratory Exam: Wheezes Additional comments: subcutaneous emphysema noted - Cardiovascular Exam Additional comments: rapid rhythm - GI/Abdominal Exam GI & Abdominal Exam: Distended. absent: Guarding, Rebound - Extremities Exam Extremities exam: Positive for: pedal edema Results - Vital Signs Recent Vital Signs: Last Vital Signs Temp 97.0 F L 07/06/18 12:36 Pulse 106 H 07/06/18 12:36 Resp 24 07/06/18 12:36 BP 112/44 L 07/06/18 12:36 Pulse Ox 100 07/06/18 12:33 - Labs Result Diagrams: 07/06/18 05:37 07/06/18 11:00 Labs: Laboratory Results - last 24 hr 07/05/18 07/05/18 07/05/18 00:38 17:14 20:53 WBC 21.6 H D RBC 2.71 L Hgb 7.4 L Hct 23.7 L MCV 87.4 MCH 27.4 MCHC 31.3 L RDW 17.4 H Plt Count 150 MPV 10.6 Neut % (Auto) 91.3 H Lymph % (Auto) 0.8 L Hamblen % (Auto) 7.4 Eos % (Auto) 0.2 Baso % (Auto) 0.3 Neut # (Auto) 19.7 H Lymph # (Auto) 0.2 L Hamblen # (Auto) 1.6 H Eos # (Auto) 0.0 Baso # (Auto) 0.1 Neutrophils % (Manual) 89 H Band Neutrophils % Lymphocytes % (Manual) 1 L Monocytes % (Manual) 8 Eosinophils % (Manual) 2 Myelocytes % Nucleated RBC % Platelet Estimate Normal Large Platelets Present Hypochromasia (manual) Slight Poikilocytosis (manual Slight Basophilic Stippling Slight Anisocytosis (manual) Slight Tear Drop Cells Slight Ovalocytes Slight Rosine Cells Slight PT INR APTT Puncture Site Rb pCO2 64 H pO2 147 H HCO3 18.5 L ABG pH 7.12 L* ABG Total CO2 22.8 ABG O2 Saturation 99.3 H ABG Base Excess -8.2 L ABG Hemoglobin 7.3 L ABG Carboxyhemoglobin 1.8 H POC ABG HHb (Measured) 0.7 ABG Methemoglobin 1.4 Candido Test Na ABG Potassium A-a O2 Difference 486.0 Respiratory Index 3.3 Hgb O2 Saturation 96.2 Glucose Lactate Vent Mode Prvc Mechanical Rate 20 FiO2 100.0 Tidal Volume 360 PEEP 3 Crit Value Called To Dr. aviles Crit Value Called By Cuong machine stuffer automatic Crit Value Read Back Y Blood Gas Notified Time 119 Sodium Potassium Chloride Carbon Dioxide Anion Gap BUN Creatinine Est GFR ( Amer) Est GFR (Non-Af Amer) POC Glucose (mg/dL) 283 H Random Glucose Calcium Phosphorus Magnesium Total Bilirubin AST ALT Alkaline Phosphatase Total Protein Albumin Globulin Albumin/Globulin Ratio Arterial Blood Potassium Blood Type Antibody Screen 07/05/18 07/05/18 07/05/18 20:53 20:53 21:00 WBC RBC Hgb Hct MCV MCH MCHC RDW Plt Count MPV Neut % (Auto) Lymph % (Auto) Hamb[place] % (Auto) Eos % (Auto) Baso % (Auto) Neut # (Auto) Lymph # (Auto) Hamblen # (Auto) Eos # (Auto) Baso # (Auto) Neutrophils % (Manual) Band Neutrophils % Lymphocytes % (Manual) Monocytes % (Manual) Eosinophils % (Manual) Myelocytes % Nucleated RBC % Platelet Estimate Large Platelets Hypochromasia (manual) Poikilocytosis (manual Basophilic Stippling Anisocytosis (manual) Tear Drop Cells Ovalocytes Rosine Cells PT 14.0 H INR 1.3 APTT 30 Puncture Site Lfem pCO2 71 H* pO2 53 L HCO3 14.9 L ABG pH 7.05 L* ABG Total CO2 21.8 L ABG O2 Saturation 88.8 L ABG Base Excess -11.9 L ABG Hemoglobin ABG Carboxyhemoglobin POC ABG HHb (Measured) ABG Methemoglobin Candido Test Neg ABG Potassium 6.5 H* A-a O2 Difference 571.0 Respiratory Index 10.8 Hgb O2 Saturation Glucose 261 H Lactate 1.4 Vent Mode Prvc Mechanical Rate 12 FiO2 100.0 Tidal Volume 360 PEEP 3 Crit Value Called To Dr. aviles Crit Value Called By Bryanna gonzalez rcp Crit Value Read Back Y Blood Gas Notified Time 2111 Sodium 128 L 129.0 L Potassium 6.6 H* D Chloride 97 L 101.0 Carbon Dioxide 19 L Anion Gap 18 BUN 112 H* D Creatinine 4.9 H Est GFR ( Amer) 10 Est GFR (Non-Af Amer) 8 POC Glucose (mg/dL) Random Glucose 245 H Calcium 7.8 L Phosphorus 8.3 H Magnesium 2.6 H Total Bilirubin 0.8 AST 55 H ALT 39 Alkaline Phosphatase 163 H Total Protein 5.9 L Albumin 3.1 L Globulin 2.8 Albumin/Globulin Ratio 1.1 Arterial Blood Potassium 6.5 H* Blood Type Antibody Screen 07/05/18 07/05/18 07/06/18 22:05 23:58 00:37 WBC RBC Hgb Hct MCV MCH MCHC RDW Plt Count MPV Neut % (Auto) Lymph % (Auto) Hamblen % (Auto) Eos % (Auto) Baso % (Auto) Neut # (Auto) Lymph # (Auto) Hamblen # (Auto) Eos # (Auto) Baso # (Auto) Neutrophils % (Manual) Band Neutrophils % Lymphocytes % (Manual) Monocytes % (Manual) Eosinophils % (Manual) Myelocytes % Nucleated RBC % Platelet Estimate Large Platelets Hypochromasia (manual) Poikilocytosis (manual Basophilic Stippling Anisocytosis (manual) Tear Drop Cells Ovalocytes Rosine Cells PT INR APTT Puncture Site Rradial pCO2 60 H pO2 90 HCO3 20.4 L ABG pH 7.19 L* ABG Total CO2 24.7 ABG O2 Saturation 96.1 ABG Base Excess -5.8 L ABG Hemoglobin 10.9 L ABG Carboxyhemoglobin 0.6 POC ABG HHb (Measured) 3.9 ABG Methemoglobin 0.5 Candido Test Pos ABG Potassium A-a O2 Difference 192.0 Respiratory Index 2.1 Hgb O2 Saturation 95.0 Glucose Lactate Vent Mode Mechanical Rate FiO2 50.0 Tidal Volume PEEP Crit Value Called To Dr. aviles Crit Value Called By Bryanna gonzalez rcp Crit Value Read Back Y Blood Gas Notified Time 2220 Sodium 129 L Potassium 6.1 H Chloride 97 L Carbon Dioxide 22 Anion Gap 17 BUN 114 H* Creatinine 5.1 H Est GFR ( Amer) 10 Est GFR (Non-Af Amer) 8 POC Glucose (mg/dL) 229 H Random Glucose 204 H Calcium 7.7 L Phosphorus Magnesium Total Bilirubin AST ALT Alkaline Phosphatase Total Protein Albumin Globulin Albumin/Globulin Ratio Arterial Blood Potassium Blood Type Antibody Screen 07/06/18 07/06/18 07/06/18 05:06 05:21 05:35 WBC RBC Hgb Hct MCV MCH MCHC RDW Plt Count MPV Neut % (Auto) Lymph % (Auto) Hamb[place] % (Auto) Eos % (Auto) Baso % (Auto) Neut # (Auto) Lymph # (Auto) Hamblen # (Auto) Eos # (Auto) Baso # (Auto) Neutrophils % (Manual) Band Neutrophils % Lymphocytes % (Manual) Monocytes % (Manual) Eosinophils % (Manual) Myelocytes % Nucleated RBC % Platelet Estimate Large Platelets Hypochromasia (manual) Poikilocytosis (manual Basophilic Stippling Anisocytosis (manual) Tear Drop Cells Ovalocytes Chyna Cells PT INR APTT Puncture Site Rb pCO2 64 H pO2 123 H HCO3 21.7 ABG pH 7.20 L ABG Total CO2 27.0 ABG O2 Saturation 99.3 H ABG Base Excess -4.2 L ABG Hemoglobin ABG Carboxyhemoglobin POC ABG HHb (Measured) ABG Methemoglobin Candido Test Na ABG Potassium 5.2 A-a O2 Difference 439.0 Respiratory Index 3.6 Hgb O2 Saturation Glucose 308 H Lactate 1.0 Vent Mode Prvc Mechanical Rate 20 FiO2 90.0 Tidal Volume 400 PEEP 3 Crit Value Called To Crit Value Called By Crit Value Read Back Blood Gas Notified Time Sodium 132.0 133 Potassium 5.4 H Chloride 101.0 95 L Carbon Dioxide 25 Anion Gap 17 BUN 111 H* Creatinine 4.9 H Est GFR ( Amer) 10 Est GFR (Non-Af Amer) 8 POC Glucose (mg/dL) 309 H Random Glucose 293 H Calcium 7.5 L Phosphorus 7.6 H Magnesium 2.4 H Total Bilirubin 0.6 AST 44 H ALT 37 Alkaline Phosphatase 158 H Total Protein 5.5 L Albumin 2.8 L Globulin 2.7 Albumin/Globulin Ratio 1.0 Arterial Blood Potassium 5.2 Blood Type Antibody Screen 07/06/18 07/06/18 07/06/18 05:37 05:46 10:51 WBC 16.2 H RBC 2.55 L Hgb 7.1 L Hct 22.1 L MCV 86.8 MCH 27.9 MCHC 32.1 L RDW 17.7 H Plt Count 138 MPV 11.6 Neut % (Auto) 90.9 H Lymph % (Auto) 1.4 L Hamblen % (Auto) 6.0 Eos % (Auto) 0.4 Baso % (Auto) 1.3 Neut # (Auto) 14.7 H Lymph # (Auto) 0.2 L Hamblen # (Auto) 1.0 H Eos # (Auto) 0.1 Baso # (Auto) 0.2 Neutrophils % (Manual) 93 H Band Neutrophils % 1 Lymphocytes % (Manual) 1 L Monocytes % (Manual) 2 Eosinophils % (Manual) 1 Myelocytes % 2 H Nucleated RBC % 1 H Platelet Estimate Normal Large Platelets Present Hypochromasia (manual) Slight Poikilocytosis (manual Slight Basophilic Stippling Slight Anisocytosis (manual) Slight Tear Drop Cells Slight Ovalocytes Slight Chyna Cells Slight PT INR APTT Puncture Site Lfa pCO2 54 H pO2 89 HCO3 21.6 ABG pH 7.25 L ABG Total CO2 25.4 ABG O2 Saturation 98.5 H ABG Base Excess -4.2 L ABG Hemoglobin ABG Carboxyhemoglobin POC ABG HHb (Measured) ABG Methemoglobin Candido Test Na ABG Potassium 4.3 A-a O2 Difference 414.0 Respiratory Index 4.7 Hgb O2 Saturation Glucose 233 H Lactate 1.8 Vent Mode Prvc Mechanical Rate FiO2 80.0 Tidal Volume 400 PEEP 3 Crit Value Called To Crit Value Called By Crit Value Read Back Blood Gas Notified Time Sodium 136.0 Potassium Chloride 103.0 Carbon Dioxide Anion Gap BUN Creatinine Est GFR ( Amer) Est GFR (Non-Af Amer) POC Glucose (mg/dL) Random Glucose Calcium Phosphorus Magnesium Total Bilirubin AST ALT Alkaline Phosphatase Total Protein Albumin Globulin Albumin/Globulin Ratio Arterial Blood Potassium 4.3 Blood Type A POSITIVE Antibody Screen Negative 07/06/18 07/06/18 11:00 11:38 WBC RBC Hgb Hct MCV MCH MCHC RDW Plt Count MPV Neut % (Auto) Lymph % (Auto) Hamb[place] % (Auto) Eos % (Auto) Baso % (Auto) Neut # (Auto) Lymph # (Auto) Hamblen # (Auto) Eos # (Auto) Baso # (Auto) Neutrophils % (Manual) Band Neutrophils % Lymphocytes % (Manual) Monocytes % (Manual) Eosinophils % (Manual) Myelocytes % Nucleated RBC % Platelet Estimate Large Platelets Hypochromasia (manual) Poikilocytosis (manual Basophilic Stippling Anisocytosis (manual) Tear Drop Cells Ovalocytes Chyna Cells PT INR APTT Puncture Site pCO2 pO2 HCO3 ABG pH ABG Total CO2 ABG O2 Saturation ABG Base Excess ABG Hemoglobin ABG Carboxyhemoglobin POC ABG HHb (Measured) ABG Methemoglobin Candido Test ABG Potassium A-a O2 Difference Respiratory Index Hgb O2 Saturation Glucose Lactate Vent Mode Mechanical Rate FiO2 Tidal Volume PEEP Crit Value Called To Crit Value Called By Crit Value Read Back Blood Gas Notified Time Sodium 134 Potassium 4.6 Chloride 96 L Carbon Dioxide 26 Anion Gap 16 BUN 105 H* Creatinine 4.6 H Est GFR ( Amer) 11 Est GFR (Non-Af Amer) 9 POC Glucose (mg/dL) 193 H Random Glucose 218 H Calcium 7.3 L Phosphorus Magnesium Total Bilirubin 0.9 AST 34 ALT 37 Alkaline Phosphatase 138 H Total Protein 5.2 L Albumin 2.5 L Globulin 2.7 Albumin/Globulin Ratio 0.9 L Arterial Blood Potassium Blood Type Antibody Screen Assessment & Plan - Assessment and Plan (Free Text) Assessment: oligoanuric ERLIN in setting of hypotension, decoimpensted CHF pt is pressor dependent, has PTX poor mental status noted for several days continue pressor support electrolytes q8 pt is not a candidate for dialysis due to underlying condition pallliative care to see
--- NOTE | 2018-07-06 13:50 | CP.PCM.PCO ---
Physician Communication Note - Physician Communication Note Physician Communication Note: see above
[2018-07-06] MEDS ORDERED: PPN#10 IV SCH (14:00)
--- NOTE | 2018-07-06 14:09 | CP.PCM.PN ---
Subjective - Date & Time of Evaluation Date of Evaluation: 07/06/18 Time of Evaluation: 14:06 - Subjective Subjective: Patient's clinical status is deteriorating with new onset of renal failure with anuria. BUN/creatinine is now trending up. The family has rescinded the DNR and patient was intubated last night. Patient is on vasopressors with a blood pressure last, 112 systolic. Chest x-ray shows slight improvement from the previous x-rays. Patient has subcutaneous emphysema also some air in the mediastinum and pericardium. Patient had a chest tube inserted due to pneumothorax. Which is subsiding. We will continue the supportive therapy ICU protocol respiratory treatment vasopressors and get a nephrology evaluation. Objective - Vital Signs/Intake and Output Vital Signs (last 24 hours): Temp Pulse Resp BP Pulse Ox 97.0 F L 106 H 24 112/44 L 100 07/06/18 12:36 07/06/18 12:36 07/06/18 12:36 07/06/18 12:36 07/06/18 12:33 Intake and Output: 07/06/18 07/06/18 11:59 23:59 Intake Total 2301.2 492.4 Output Total 20 0 Balance 2281.2 492.4 - Medications Medications: Current Medications Albuterol Sulfate (Albuterol 0.042% Inhal Bell (1.25mg/3ml) Ud) 1.25 mg INH RQ2 PRN PRN Reason: Wheezing Albuterol/Ipratropium (Duoneb 3 Mg/0.5 Mg (3 Ml) Ud) 3 ml INH RQ6 JONNA Last Admin: 07/06/18 13:56 Dose: Not Given Calcium Acetate (Phoslo) 667 mg PO BIDCC [facility] Last Admin: 07/06/18 10:19 Dose: 667 mg Ergocalciferol (Drisdol 50,000 Intl Units Cap) 1 cap PO QWK [facility] Last Admin: 06/30/18 09:38 Dose: 1 cap Furosemide (Lasix) 20 mg IVP DAILY [facility] Last Admin: 07/06/18 10:20 Dose: Not Given Cefepime HCl 0.5 gm/ Dextrose 50 mls @ 100 mls/hr IVPB Q24H [facility]; Protocol Last Admin: 07/06/18 10:28 Dose: 100 mls/hr Linezolid (Zyvox 600mg/300ml D5w) 600 mg in 300 mls @ 200 mls/hr IVPB Q12H JONNA; Protocol Last Admin: 07/06/18 00:26 Dose: 200 mls/hr Dobutamine HCl/Dextrose (Dobutamine/Dextrose 5% 500mg/250ml) 500 mg in 250 mls @ 7.076 mls/hr IV .Q24H JONNA; Protocol Last Admin: 07/06/18 02:01 Dose: 7.076 mls/hr Dexmedetomidine HCl 200 mcg/ (Sodium Chloride) 50 mls @ 2.34 mls/hr IV TITR PRN; Protocol PRN Reason: Sedation Last Admin: 07/06/18 10:18 Dose: 1.49 mcg/kg/hr, 17.5 mls/hr Norepinephrine Bitartrate 4 mg (/ Sodium Chloride) 254 mls @ 15.24 mls/hr IV .[id number] PRN; Protocol PRN Reason: TITRATE PER MD ORDER Last Titration: 07/06/18 11:35 Dose: 6 mcg/min, 22.86 mls/hr Sodium Bicarbonate 100 meq/ (Sodium Chloride) 1,100 mls @ 100 mls/hr IV .Q11H JONNA Last Admin: 07/06/18 13:14 Dose: 100 mls/hr Amino Acids (Clinimix 4.25/5 % "E" (1000 Ml)) 1,000 mls @ 50 mls/hr IV .Q20H JONNA Stop: 07/07/18 18:00 Insulin Human Regular (Novolin R) 0 unit SC Q6H JONNA; Protocol Last Admin: 07/06/18 12:37 Dose: 2 u Metoprolol Tartrate (Lopressor) 25 mg PO BID JONNA Last Admin: 07/06/18 10:20 Dose: Not Given Montelukast Sodium (Singulair) 10 mg PO DAILY JONNA Last Admin: 07/06/18 10:19 Dose: 10 mg Morphine Sulfate (Morphine) 2 mg IVP Q4 PRN PRN Reason: Anxiety Last Admin: 07/05/18 13:16 Dose: 2 mg Pantoprazole Sodium (Protonix Inj) 40 mg IVP DAILY JONNA Last Admin: 07/06/18 10:13 Dose: 40 mg Ranolazine (Ranexa) 500 mg PO BID JONNA Last Admin: 07/06/18 10:21 Dose: Not Given Repaglinide (Prandin) 2 mg PO DAILY [facility] Last Admin: 07/06/18 10:21 Dose: Not Given Roflumilast (Daliresp) 500 mcg PO DAILY [facility] Last Admin: 07/01/18 10:27 Dose: 500 mcg Rosuvastatin Calcium (Crestor) 20 mg PO HS [facility] Last Admin: 07/05/18 21:40 Dose: Not Given Sacubitril/Valsartan (Entresto 49 Mg-51 Mg) 1 tab PO BID [facility] Last Admin: 07/06/18 10:20 Dose: Not Given - Labs Labs: 07/06/18 05:37 07/06/18 11:00 PT 14.0 SECONDS (9.7-12.2) H 07/05/18 20:53 INR 1.3 07/05/18 20:53 APTT 30 SECONDS (21-34) 07/05/18 20:53
--- NOTE | 2018-07-06 14:32 | CP.PCM.PN ---
Subjective - Date & Time of Evaluation Date of Evaluation: 07/06/18 Time of Evaluation: 14:32 - Subjective Subjective: CHIEF COMPLAINTS TODAY : events noted OVERNIGHT Patient IN ICU,INTUBATED. UNRESPONSIVE, FAMILY AT BEDSIDE SEEN BY NEPHROLOGY FOR ARF SEEN BY PALLIATIVE CARE. ROS. ( on observation only ) HEENT : N. Resp : No cough, wheezing ,pleuritic CP ,or hemoptysis +vr RT CT IN PLACE Cardio : No anginal CP, PND, orthopnea, palpitation GI : No abd.pain, n/v ,diarrhea or GI bleeding . 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 Musculoskel : No joint swelling , Derm : No rash Psych : Normal affect. Ext : No swelling ,calf pain PE. Pt. INTUBATED,ON VENTILATOR UNRESPONSIVE V.S As noted in the chart Head ,ear nose,throat and eyes : Normal. Neck : Supple with normal carotids. Lungs: DECREASED BREATH SOUNDS RIGHT SIDE. vr RT -CT IN PLACE Heart : S1 & S2 normal with S4. No murmur. Abd : Soft non tender with normal bowel sounds. Neuro : Moves all ext. with no localized deficit.(sedated ) Ext : No edema with intact pulses.Non tender calves Derm : No rashes or decubitus ulcer. LABS/RADIOLOGY: reviewed. Objective - Vital Signs/Intake and Output Vital Signs (last 24 hours): Temp Pulse Resp BP Pulse Ox 97.0 F L 106 H 24 112/44 L 100 07/06/18 12:36 07/06/18 12:36 07/06/18 12:36 07/06/18 12:36 07/06/18 12:33 Intake and Output: 07/06/18 07/06/18 06:59 18:59 Intake Total 1291.7 1600.6 Output Total 0 20 Balance 1291.7 1580.6 - Medications Medications: Current Medications Albuterol Sulfate (Albuterol 0.042% Inhal Bell (1.25mg/3ml) Ud) 1.25 mg INH RQ2 PRN PRN Reason: Wheezing Albuterol/Ipratropium (Duoneb 3 Mg/0.5 Mg (3 Ml) Ud) 3 ml INH RQ6 JONNA Last Admin: 07/06/18 13:56 Dose: Not Given Calcium Acetate (Phoslo) 667 mg PO BIDCC REPLACED BY [facility] Last Admin: 07/06/18 10:19 Dose: 667 mg Ergocalciferol (Drisdol 50,000 Intl Units Cap) 1 cap PO QWK JONNA Last Admin: 06/30/18 09:38 Dose: 1 cap Furosemide (Lasix) 20 mg IVP DAILY JONNA Last Admin: 07/06/18 10:20 Dose: Not Given Cefepime HCl 0.5 gm/ Dextrose 50 mls @ 100 mls/hr IVPB Q24H JONNA; Protocol Last Admin: 07/06/18 10:28 Dose: 100 mls/hr Linezolid (Zyvox 600mg/300ml D5w) 600 mg in 300 mls @ 200 mls/hr IVPB Q12H JONNA; Protocol Last Admin: 07/06/18 00:26 Dose: 200 mls/hr Dobutamine HCl/Dextrose (Dobutamine/Dextrose 5% 500mg/250ml) 500 mg in 250 mls @ 7.076 mls/hr IV .Q24H JONNA; Protocol Last Admin: 07/06/18 02:01 Dose: 7.076 mls/hr Dexmedetomidine HCl 200 mcg/ (Sodium Chloride) 50 mls @ 2.34 mls/hr IV TITR PRN; Protocol PRN Reason: Sedation Last Admin: 07/06/18 10:18 Dose: 1.49 mcg/kg/hr, 17.5 mls/hr Norepinephrine Bitartrate 4 mg (/ Sodium Chloride) 254 mls @ 15.24 mls/hr IV .[id number] PRN; Protocol PRN Reason: TITRATE PER MD ORDER Last Titration: 07/06/18 11:35 Dose: 6 mcg/min, 22.86 mls/hr Sodium Bicarbonate 100 meq/ (Sodium Chloride) 1,100 mls @ 100 mls/hr IV .Q11H JONNA Last Admin: 07/06/18 13:14 Dose: 100 mls/hr Amino Acids (Clinimix 4.25/5 % "E" (1000 Ml)) 1,000 mls @ 50 mls/hr IV .Q20H JONNA Stop: 07/07/18 18:00 Insulin Human Regular (Novolin R) 0 unit SC Q6H JONNA; Protocol Last Admin: 07/06/18 12:37 Dose: 2 u Metoprolol Tartrate (Lopressor) 25 mg PO BID JONNA Last Admin: 07/06/18 10:20 Dose: Not Given Montelukast Sodium (Singulair) 10 mg PO DAILY REPLACED BY [facility] Last Admin: 07/06/18 10:19 Dose: 10 mg Morphine Sulfate (Morphine) 2 mg IVP Q4 PRN PRN Reason: Anxiety Last Admin: 07/05/18 13:16 Dose: 2 mg Pantoprazole Sodium (Protonix Inj) 40 mg IVP DAILY REPLACED BY [facility] Last Admin: 07/06/18 10:13 Dose: 40 mg Ranolazine (Ranexa) 500 mg PO BID REPLACED BY [facility] Last Admin: 07/06/18 10:21 Dose: Not Given Repaglinide (Prandin) 2 mg PO DAILY REPLACED BY [facility] Last Admin: 07/06/18 10:21 Dose: Not Given Roflumilast (Daliresp) 500 mcg PO DAILY REPLACED BY [facility] Last Admin: 07/01/18 10:27 Dose: 500 mcg Rosuvastatin Calcium (Crestor) 20 mg PO HS REPLACED BY [facility] Last Admin: 07/05/18 21:40 Dose: Not Given Sacubitril/Valsartan (Entresto 49 Mg-51 Mg) 1 tab PO BID REPLACED BY [facility] Last Admin: 07/06/18 10:20 Dose: Not Given - Labs Labs: 07/06/18 05:37 07/06/18 11:00 PT 14.0 SECONDS (9.7-12.2) H 07/05/18 20:53 INR 1.3 07/05/18 20:53 APTT 30 SECONDS (21-34) 07/05/18 20:53 Assessment and Plan (1) Multiorgan failure Status: Acute (2) Acute respiratory failure with hypoxia Status: Acute (3) Ischemic cardiomyopathy Status: Acute (4) Chr obstructive pulmonary disease w/ acute lower respiratory infxn Status: Acute (5) CHF exacerbation Status: Acute (6) Cardiomyopathy Status: Acute (7) Pneumonia due to gram-negative bacteria Status: Acute (8) CAD (coronary artery disease) Status: Acute (9) Anemia Status: Acute (10) Acute kidney failure Status: Acute (11) DM type 2 (diabetes mellitus, type 2) Status: Acute - Assessment and Plan (Free Text) Plan: CONTINUE IV ABX IV CEFEPIME. CONTINUE IV V ZYVOX 600 MG IV Q 83PHPU01/15/18 PT HAS RT.PTX, RT CT IN PLACE PER PULMONARY MONITOR H/H. CONTINUE SUPPORTIVE CARE. F/U CXR PER PULMONARY. PROGNOSIS GUARDED. DISCUSSED WITH AND FAMILY ABOUT THE GRIM PROGNOSIS WITH MULTIPLE ORGAN FAILURE.
[2018-07-06 16:23] VITALS: TEMP 96.7
[2018-07-06] MEDS ORDERED: PPN#11 IV SCH (18:00)
[2018-07-06] MEDS ORDERED: Fat Emulsion 20% IV 500 ML IV ONE (18:00)
[2018-07-06] MEDS ORDERED: Phenylephrine 30 MG in Sodium Chloride 0.9% 247 ML IV PRN (19:28)
[2018-07-06 21:07] VITALS: BP 83/33; PULSE 65; RESP 0; O2SAT 67
--- NOTE | 2018-07-07 14:07 | CP.PCM.DIS ---
Provider - Provider Date of Admission: 06/23/18 21:20 Attending physician: Uriah Hernández MD Consults: 06/27/18 12:37 Infectious Disease Consult Routine Comment: Consulting Provider: Philly Padilla Consulting Physician: Philly Padilla Reason for Consult: + VE SPUTUM PSEUDOMONAS 07/01/18 16:54 Pulmonology Consult Routine Comment: Consulting Provider: Luke Malik Consulting Physician: Luke Malik Reason for Consult: sob 07/02/18 15:00 Critical Care Consult Routine Comment: RESP DISTRESS Consulting Provider: Heri Ortiz Consulting Physician: Heri Ortiz Reason for Consult: RESP DISTRESS 07/05/18 13:27 General Surgery Consult Routine Comment: Consulting Provider: Aleks Boyer Jr. Consulting Physician: Aleks Boyer Jr. Reason for Consult: needs TLC 07/06/18 09:29 Palliative Care Consult Routine Comment: Consulting Provider: Argelia Santizo Physician Instructions: Reason For Exam: goals of care Time Spent in preparation of Discharge (in minutes): 35 Hospital Course - Lab Results Lab Results: Micro Results 07/05/18 20:53 Naris MRSA Culture (Admit) - Final MRSA NOT DETECTED 06/23/18 22:06 Blood Blood Culture - Final NO GROWTH AFTER 5 DAYS 06/23/18 22:06 Blood Gram Stain - Final TEST NOT PERFORMED 06/23/18 20:30 Blood Blood Culture - Final NO GROWTH AFTER 5 DAYS 06/23/18 20:30 Blood Gram Stain - Final TEST NOT PERFORMED 06/25/18 18:07 Sputum Gram Stain - Final 06/25/18 18:07 Sputum Sputum Culture - Final Pseudomonas Aeruginosa Most Recent Lab Values WBC 16.2 K/uL (4.8-10.8) H 07/06/18 05:37 RBC 2.55 Mil/uL (3.80-5.20) L 07/06/18 05:37 Hgb 7.1 g/dL (11.0-16.0) L 07/06/18 05:37 Hct 22.1 % (34.0-47.0) L 07/06/18 05:37 MCV 86.8 fL (81.0-99.0) 07/06/18 05:37 MCH 27.9 pg (27.0-31.0) 07/06/18 05:37 MCHC 32.1 g/dL (33.0-37.0) L 07/06/18 05:37 RDW 17.7 % (11.5-14.5) H 07/06/18 05:37 Plt Count 138 K/uL (130-400) 07/06/18 05:37 MPV 11.6 fL (7.2-11.7) 07/06/18 05:37 Neut % (Auto) 90.9 % (50.0-75.0) H 07/06/18 05:37 Lymph % (Auto) 1.4 % (20.0-40.0) L 07/06/18 05:37 Chase % (Auto) 6.0 % (0.0-10.0) 07/06/18 05:37 Eos % (Auto) 0.4 % (0.0-4.0) 07/06/18 05:37 Baso % (Auto) 1.3 % (0.0-2.0) 07/06/18 05:37 Neut # (Auto) 14.7 K/uL (1.8-7.0) H 07/06/18 05:37 Lymph # (Auto) 0.2 K/uL (1.0-4.3) L 07/06/18 05:37 Chase # (Auto) 1.0 K/uL (0.0-0.8) H 07/06/18 05:37 Eos # (Auto) 0.1 K/uL (0.0-0.7) 07/06/18 05:37 Baso # (Auto) 0.2 K/uL (0.0-0.2) 07/06/18 05:37 Neutrophils % (Manual) 93 % (50-75) H 07/06/18 05:37 Band Neutrophils % 1 % (0-2) 07/06/18 05:37 Lymphocytes % (Manual) 1 % (20-40) L 07/06/18 05:37 Monocytes % (Manual) 2 % (0-10) 07/06/18 05:37 Eosinophils % (Manual) 1 % (0-4) 07/06/18 05:37 Myelocytes % 2 % (0-0) H 07/06/18 05:37 Nucleated RBC % 1 % (0-0) H 07/06/18 05:37 Toxic Granulation Present 07/02/18 06:28 Platelet Estimate Normal (NORMAL) 07/06/18 05:37 Large Platelets Present 07/06/18 05:37 Polychromasia Slight 07/02/18 06:28 Hypochromasia (manual) Slight 07/06/18 05:37 Poikilocytosis (manual Slight 07/06/18 05:37 Basophilic Stippling Slight 07/06/18 05:37 Anisocytosis (manual) Slight 07/06/18 05:37 Target Cells Slight 06/30/18 09:30 Tear Drop Cells Slight 07/06/18 05:37 Ovalocytes Slight 07/06/18 05:37 Chyna Cells Slight 07/06/18 05:37 PT 14.0 SECONDS (9.7-12.2) H 07/05/18 20:53 INR 1.3 07/05/18 20:53 APTT 30 SECONDS (21-34) 07/05/18 20:53 Puncture Site Lfa 07/06/18 10:51 pCO2 54 mm/Hg (35-45) H 07/06/18 10:51 pO2 89 mm/Hg (80-100) 07/06/18 10:51 HCO3 21.6 mmol/L (21-28) 07/06/18 10:51 ABG pH 7.25 (7.35-7.45) L 07/06/18 10:51 ABG Total CO2 25.4 mmol/L (22-28) 07/06/18 10:51 ABG O2 Saturation 98.5 % (95-98) H 07/06/18 10:51 ABG Base Excess -4.2 mmol/L (-2.0-3.0) L 07/06/18 10:51 ABG Hemoglobin 10.9 g/dL (11.7-17.4) L 07/05/18 22:05 ABG Carboxyhemoglobin 0.6 % (0.5-1.5) 07/05/18 22:05 POC ABG HHb (Measured) 3.9 % (0.0-5.0) 07/05/18 22:05 ABG Methemoglobin 0.5 % (0.0-3.0) 07/05/18 22:05 Candido Test Na 07/06/18 10:51 ABG Potassium 4.3 mmol/L (3.6-5.2) 07/06/18 10:51 A-a O2 Difference 414.0 mm/Hg 07/06/18 10:51 Respiratory Index 4.7 07/06/18 10:51 Hgb O2 Saturation 95.0 % (95.0-98.0) 07/05/18 22:05 Sodium 136.0 mmol/l (132-148) 07/06/18 10:51 Chloride 103.0 mmol/L (98-107) 07/06/18 10:51 Glucose 233 mg/dl (65-105) H 07/06/18 10:51 Lactate 1.8 mmol/L (0.7-2.1) 07/06/18 10:51 Vent Mode Prvc 07/06/18 10:51 Mechanical Rate 20 07/06/18 05:06 FiO2 80.0 % 07/06/18 10:51 Tidal Volume 400 07/06/18 10:51 PEEP 3 07/06/18 10:51 Inspiratory BiPAP 12 07/02/18 15:55 Expiratory BiPAP 6 07/02/18 15:55 Crit Value Called To Dr. aviles 07/05/18 22:05 Crit Value Called By Bryanna gonzalez rcp 07/05/18 22:05 Crit Value Read Back Y 07/05/18 22:05 Blood Gas Notified Time 2220 07/05/18 22:05 Sodium 134 mmol/L (132-148) 07/06/18 11:00 Potassium 4.6 mmol/L (3.6-5.2) 07/06/18 11:00 Chloride 96 mmol/L (98-107) L 07/06/18 11:00 Carbon Dioxide 26 mmol/L (22-30) 07/06/18 11:00 Anion Gap 16 (10-20) 07/06/18 11:00 BUN 105 mg/dL (7-17) H* 07/06/18 11:00 Creatinine 4.6 mg/dL (0.7-1.2) H 07/06/18 11:00 Est GFR ( Amer) 11 07/06/18 11:00 Est GFR (Non-Af Amer) 9 07/06/18 11:00 POC Glucose (mg/dL) 166 mg/dL (65-110) H 07/06/18 17:37 Random Glucose 218 mg/dL (65-105) H 07/06/18 11:00 Calcium 7.3 mg/dl (8.6-10.4) L 07/06/18 11:00 Phosphorus 7.6 mg/dL (2.5-4.5) H 07/06/18 05:35 Magnesium 2.4 mg/dL (1.6-2.3) H 07/06/18 05:35 Total Bilirubin 0.9 mg/dL (0.2-1.3) 07/06/18 11:00 Direct Bilirubin 0.5 mg/dL (0.0-0.4) H 06/24/18 07:08 AST 34 U/L (14-36) 07/06/18 11:00 ALT 37 U/L (9-52) 07/06/18 11:00 Alkaline Phosphatase 138 U/L (38-126) H 07/06/18 11:00 Total Creatine Kinase 59 U/L (30-135) 06/24/18 14:10 CK-MB (Mass) 2.76 ng/mL (0.0-3.38) 06/24/18 14:10 Troponin I 0.0620 ng/mL (0.00-0.120) 06/24/18 14:10 NT-Pro-B Natriuret Pep 14401 pg/mL (0-900) H 06/27/18 08:05 Total Protein 5.2 g/dL (6.3-8.3) L 07/06/18 11:00 Albumin 2.5 g/dL (3.5-5.0) L 07/06/18 11:00 Globulin 2.7 gm/dL (2.2-3.9) 07/06/18 11:00 Albumin/Globulin Ratio 0.9 (1.0-2.1) L 07/06/18 11:00 Arterial Blood Potassium 4.3 mmol/L (3.6-5.2) 07/06/18 10:51 Blood Type A POSITIVE 07/06/18 05:46 Antibody Screen Negative 07/06/18 05:46 - Hospital Course Hospital Course: 87 years old woman with cardiopulmonary disorder complaining of shortness of breath cough expectoration for the last 2 days increase in intensity and severity presented to [facility] ER with systolic heart failure. Patient was given Lasix nebulizer with partial improvement. PAST HIST. Patient has history of coronary artery disease with stent and ischemic cardiomyopathy with left ventricle ejection fraction of less than 30%. Patient also has a moderate mitral regurg. History of type 2 diabetes COPD and recently had an infection with pertussis. Patient was admitted on the telemetry bed. Guideline based patient received IV antibiotics and the therapy for congestive heart failure which was dictated by the low blood pressure. Pulmonary consult was also obtain ID consult was obtained. Patient was put on BiPAP with much improvement but continued to have low blood pressure. After IV Dobutrex there was improvement in urine output and the blood pressure. BUN and creatinine also trended upwards, 64/2.4. Patient's chest x-ray did not improve and patient was getting more hypoxemic and hypotensive. The pulmonary internet consultant had an extensive discussion with the family of intubation. As per the family, the patient wishes were not to be intubated and patient was maintained on BiPAP and IV medications. 48 hours later patient was getting more obtunded and family were concerned about any last option. After discussing with the pulmonary and critical care family rescinded the DNR DNI status and patient was intubated. After all the aggressive therapy in the ICU patient's blood pressure did not respond to the vasopressors hypoxemia and hypotension persisted and patient went to renal failure. Nephrology consult was obtained. Patient's family further declined any more intervention of dialysis. On July 06, 2018 patient in ICU. Discharge Exam - Head Exam Head Exam: ATRAUMATIC, NORMAL INSPECTION, NORMOCEPHALIC Discharge Plan - Follow Up Plan Condition: GUARDED Disposition: WITH WITHOUT AUTOPSY
[2018-07-07] MEDS ORDERED: PPN#12 IV SCH (14:13)
--- NOTE | 2018-07-07 20:16 | CARD ---
APPROVED REPORT Date of service: 07/06/2018 EXAM: Two-dimensional and M-mode echocardiogram with Doppler and color Doppler. Other Information Quality : AverageTechnically LimitedRhythm : INDICATION Cardiac Disease: CAD Rule out subacute bacterial endocarditis COPD RISK FACTORS Hypertension Hyperlipidemia Diabetes 2D DIMENSIONS LA [id number] (18-58mL)LVEF (Casas's)35.18 % IVC0.00 cm M-Mode DIMENSIONS IVSd1.37 (0.7-1.1cm)LVDd5.97 (4.0-5.6cm) PWd0.94 (0.7-1.1cm)FS (%) 22 % LVDs4.65 (2.0-3.8cm)LVEF (%)44 (>50%) Aortic Valve AoV Peak Haqkinal954.2cm/sAoV VTI34.1cmAO Peak GR.15mmHg LVOT Peak Iznorpjd187.0cm/sLVOT VTI21.44cmAO Mean GR.7mmHg AI P 1/2 [id number] Mitral Valve MV E Suweshpr02.9cm/sMV A Ymoogpda63.3cm/sE/A ratio0.9 DGJN684.35 cm/s TDI Lateral E' Peak V8.93cm/sMedial E' Peak V5.25cm/sE/Lateral E'8.3 E/Medial E'14.1 Tricuspid Valve TR Peak Gnaclxnj158fq/sTR Peak Gr.80cyFvLFNU53zaPh LEFT VENTRICLE The Left Ventricle is moderately dilated. There is normal left ventricular wall thickness. Left ventricle systolic function is moderately to severely impaired. The Ejection Fraction is 30-35%. There is global hypokinesis of the left ventricle. No left ventricle thrombus noted on this study. There is no ventricular septal defect visualized. There is no left ventricular aneurysm. There is no mass noted in the left ventricle. RIGHT VENTRICLE The right ventricle is normal size. There is normal right ventricular wall thickness. The right ventricular systolic function is normal. ATRIA The left atrium is moderately dilated. The right atrium size is normal. The interatrial septum is intact with no evidence for an atrial septal defect. AORTIC VALVE The aortic valve is normal in structure and function. There is moderate aortic regurgitation. There is no aortic valvular stenosis. There is no aortic valvular vegetation. MITRAL VALVE The mitral valve is normal in structure and function. There is no evidence of mitral valve prolapse. There is no mitral valve stenosis. Mitral regurgitation is moderate. TRICUSPID VALVE The tricuspid valve is normal in structure and function. There is mild to moderate tricuspid regurgitation. Right ventricular systolic pressure is estimated at 50-60 mmHg. There is moderate-severe pulmonary hypertension. There is no tricuspid valve prolapse or vegetation. There is no tricuspid valve stenosis. PULMONIC VALVE The pulmonary valve is normal in structure and function. There is no pulmonic valvular regurgitation. There is no pulmonic valvular stenosis. GREAT VESSELS The aortic root is normal in size. The ascending aorta is normal in size. The pulmonary artery is normal. The IVC is normal in size and collapses >50% with inspiration. PERICARDIAL EFFUSION The pericardium appears normal. There is no pleural effusion. <Conclusion> The Left Ventricle is moderately dilated. Left ventricle systolic function is moderately to severely impaired. The Ejection Fraction is 30-35%. There is global hypokinesis of the left ventricle. The right atrium size is normal. There is moderate aortic regurgitation. Mitral regurgitation is moderate. There is mild to moderate tricuspid regurgitation. Right ventricular systolic pressure is estimated at 50-60 mmHg. There is moderate-severe pulmonary hypertension.
== END 2018-07-06 23:10 | DRG 291 ==
LOC: C.ER 20:18 → C.9E 21:20 → C.6T 22:32 → C.9I 07-05 18:18
PROVIDERS: ADMIT Internal Medicine Cardiovascular Disease; ATTEND Internal Medicine Cardiovascular Disease
PROC: 05HA33Z Insertion of Infusion Device into Left Brachial Vein, Percutaneous Approach (ICD-10-PCS; 2018-06-23)
PROC: 0BH17EZ Insertion of Endotracheal Airway into Trachea, Via Natural or Artificial Opening (ICD-10-PCS; principal; 2018-07-05)
PROC: 5A1945Z Respiratory Ventilation, 24-96 Consecutive Hours (ICD-10-PCS; 2018-07-05)
DX: I13.0 Hypertensive heart and chronic kidney disease with heart failure and stage 1 through stage 4 chronic kidney disease, or unspecified chronic kidney disease (principal); I50.23 Acute on chronic systolic (congestive) heart failure; J15.6 Pneumonia due to other Gram-negative bacteria; J96.01 Acute respiratory failure with hypoxia; A41.9 Sepsis, unspecified organism; E87.2 Acidosis; N17.9 Acute kidney failure, unspecified; J44.0 Chronic obstructive pulmonary disease with (acute) lower respiratory infection; J44.1 Chronic obstructive pulmonary disease with (acute) exacerbation; J93.9 Pneumothorax, unspecified; I82.611 Acute embolism and thrombosis of superficial veins of right upper extremity; E87.5 Hyperkalemia; F41.9 Anxiety disorder, unspecified; I25.10 Atherosclerotic heart disease of native coronary artery without angina pectoris; I25.5 Ischemic cardiomyopathy; Z66 Do not resuscitate; Z79.82 Long term (current) use of aspirin; N18.9 Chronic kidney disease, unspecified; Z51.5 Encounter for palliative care; Z95.0 Presence of cardiac pacemaker; Z95.5 Presence of coronary angioplasty implant and graft; I34.0 Nonrheumatic mitral (valve) insufficiency; E11.22 Type 2 diabetes mellitus with diabetic chronic kidney disease